=== PATIENT | female | born 1965 | race African-American/Black ===

== ENCOUNTER → 2017-05-16 | Outpatient (CLI) | payer OTHER ==
--- NOTE | 2017-05-16 16:57 | US ---
EXAMINATION TYPE: US venous doppler duplex LE RT DATE OF EXAM: 05/16/2017 4:45 PM COMPARISON: NONE CLINICAL HISTORY: M79.604:pain in right leg, R22.41 swelling in right leg. SIDE PERFORMED: Right TECHNIQUE: The lower extremity deep venous system is examined utilizing real time linear array sonog be with graded compression, doppler sonography and color-flow sonography. VESSELS IMAGED: External Iliac Vein (EIV) Common Femoral Vein Deep Femoral Vein Greater Saphenous Vein * Femoral Vein Popliteal Vein Small Saphenous Vein * Proximal Calf Veins (* superficial vessels) Patient of large body habitus. Right Leg: Negative for DVT IMPRESSION: Negative exam. No evidence of deep venous thrombosis.
== END ==
LOC: RAD 16:11
PROVIDERS: ATTEND Internal Medicine
DX: M79.604 Pain in right leg (principal); R22.41 Localized swelling, mass and lump, right lower limb

== ENCOUNTER → 2018-06-21 | Outpatient (CLI) | payer OTHER ==
--- NOTE | 2018-06-23 10:18 | MM ---
Reason for exam: screening (asymptomatic). Last mammogram was performed 7 years and 7 months ago. History: Patient is postmenopausal. Family history of breast cancer in grandmother at age 61. Physical Findings: A clinical breast exam by your physician is recommended on an annual basis and results should be correlated with mammographic findings. MG Screening Mammo w CAD Bilateral CC and MLO view(s) were taken. Prior study comparison: December 02, 2010, bilateral digital screening mammo w/CAD. October 22, 2005, bilateral mammogram, performed at [facility]. There is chronic nodularity in the right breast. There is no discrete abnormality. No significant changes when compared with prior studies. ASSESSMENT: Benign, BI-RAD 2 RECOMMENDATION: Routine screening mammogram of both breasts in 1 year.
== END | disposition home or self-care (01) ==
LOC: RADMAMWWP 13:34
PROVIDERS: ATTEND Family Medicine
DX: Z12.31 Encounter for screening mammogram for malignant neoplasm of breast (principal)
CPT/HCPCS: 77067

== ENCOUNTER 2018-08-18 07:22 | Day surgery (SDC) | payer OTHER ==
[2018-08-16 14:10] VITALS: BMI 51.8
[~2018-08-18 07:22] MED LIST: LACTATED RINGERS 1,000 ML IV SCH
[2018-08-18 07:43] VITALS: RESP 16; TEMP 98
[2018-08-18 07:47] LABS: Glucose,Whole Blood 108 mg/dL (75-99)
[2018-08-18] MEDS ORDERED: PROPOFOL 10 MG/ML 20 ML VIAL IV ONE (07:48)
--- NOTE | 2018-08-18 08:08 | P.GSHP ---
History of Present Illness H&P Date: 08/18/18 Chief Complaint: Screening colonoscopy This is a 51-year-old female who presents today for screening colonoscopy. Patient denies any significant GI complaints. Past Medical History Past Medical History: Asthma, Diabetes Mellitus History of Any Multi-Drug Resistant Organisms: None Reported Past Surgical History: No Surgical Hx Reported Past Anesthesia/Blood Transfusion Reactions: No Reported Reaction Additional Past Anesthesia/Blood Transfusion Reaction / Comment(s): no anesthesia Smoking Status: Never smoker - Past Family History Father Family Medical History: Cancer Additional Family Medical History / Comment(s): Colon CA Medications and Allergies Home Medications Medication Instructions Recorded Confirmed Type Albuterol Inhaler [Ventolin Hfa 1 - 2 puff INHALATION Q6HR PRN 09/30/14 History Inhaler] Insulin Aspart [NovoLOG See Protocol SQ AC-TID 12/27/14 08/18/18 History (formulary)] Insulin Glargine,Hum.rec.anlog 62 unit SQ HS 07/26/18 08/18/18 History [Carline Rey U-100] Mometasone/Formoterol [Dulera 200 2 puff INHALATION BID PRN 07/26/18 08/18/18 History Mcg/5 Mcg Inhaler] Multivitamins, Thera [Multivitamin 1 tab PO DAILY 07/26/18 08/18/18 History (formulary)] metFORMIN HCL [Glucophage] 500 mg PO BID 07/26/18 08/18/18 History Allergies Allergy/AdvReac Type Severity Reaction Status Date / Time egg Allergy Itching Verified 08/18/18 07:36 dust Allergy Itching Uncoded 08/18/18 07:36 mold Allergy Itching Uncoded 08/18/18 07:36 Surgical - Exam Vital Signs Temp Pulse Resp BP Pulse Ox 98.0 F 97 16 143/76 97 08/18/18 07:39 08/18/18 07:39 08/18/18 07:39 08/18/18 07:39 08/18/18 07:39 - General well developed, no distress - Eyes PERRL - ENT normal pinna - Neck no masses - Respiratory normal expansion - Cardiovascular Rhythm: regular - Abdomen Abdomen: soft, non tender Results - Labs Abnormal Lab Results - Last 24 Hours (Table) 08/18/18 Range/Units 07:43 POC Glucose (mg/dL) 108 H (75-99) mg/dL Assessment and Plan Assessment: We'll perform screening colonoscopy.
--- NOTE | 2018-08-18 08:25 | P.OP ---
Date of Procedure: 08/18/18 Preoperative Diagnosis: Screening colonoscopy Postoperative Diagnosis: Poor colonic prep Normal colon visualized to right colon Procedure(s) Performed: Colonoscopy Anesthesia: MAC Surgeon: Alo Cleary Pathology: none sent Condition: stable Disposition: PACU Description of Procedure: The patient's placed on the endoscopy table in the lateral position. She received IV sedation. Digital rectal exam was performed which revealed a large amount of liquid stool. Flexible colonoscope was then placed patient anus passed throughout the colon. The right colon was not visualized secondary to poor colonic prep. The large amount liquid stool which prevented the colonoscope visualize the colon. This point scope was withdrawn. The transverse colon, descending colon and sigmoid colon appeared normal. Scope was then brought back the rectum and this appeared normal. Scope was withdrawn for patient.
[2018-08-18 08:53] VITALS: BP 132/87; PULSE 85
== END 2018-08-18 09:17 | disposition home or self-care (01) ==
LOC: ORWHC2ENDO 07:22
PROVIDERS: ATTEND Surgery
DX: Z12.11 Encounter for screening for malignant neoplasm of colon (principal); E11.9 Type 2 diabetes mellitus without complications; J45.909 Unspecified asthma, uncomplicated; Z79.4 Long term (current) use of insulin; Z79.899 Other long term (current) drug therapy; Z91.012 Allergy to eggs; Z91.048 Other nonmedicinal substance allergy status
CPT/HCPCS: J2704; G0121

== ENCOUNTER 2018-12-18 11:16 | Inpatient (IN) | payer OTHER ==
[2018-12-18] MEDS ORDERED: IPRATROPIUM 0.5 MG/2.5 ML NEBU INHALATION STA (11:33)
[2018-12-18] MEDS ORDERED: ALBUTEROL NEBULIZED 2.5 MG/3 ML INHALATION STA (11:33)
[2018-12-18] MEDS ORDERED: methylPREDNISolone SOD SUCCI 125 MG/2 ML VIAL IV STA (11:33)
--- NOTE | 2018-12-18 12:07 | ED ---
General Adult HPI - General Chief complaint: Shortness of Breath Stated complaint: asthma Time Seen by Provider: 12/18/18 11:20 Source: patient, RN notes reviewed Mode of arrival: wheelchair Limitations: no limitations - History of Present Illness Initial comments: This is a 53-year-old female who presents emergency department with past medical history significant for asthma. Patient has been having difficulty breathing worsen over the last for 5 days but since yesterday got considerably worse. Patient denies any fever chills. Patient denies any significant cough. Patient denies any chest pain. Patient denies any head this dizziness or near syncopal episode. Patient denies any palpitations. Patient denies any abdominal pain. Patient denies any new swelling to the legs or calf tenderness. Patient states she's been taking breathing treatments all night and did get a steroid shot earlier in the week but is not currently on any steroids. Patient denies any smoking. - Related Data Home Medications Medication Instructions Recorded Confirmed INSULIN ASPART (NovoLOG) [NovoLOG See Protocol SQ AC-TID 12/27/14 12/18/18 (formulary)] Insulin Glargine,Hum.rec.anlog 62 unit SQ HS 07/26/18 12/18/18 [Basaglar Kwikpen U-100] Mometasone/Formoterol [Dulera 200 2 puff INHALATION RT-BID PRN 07/26/18 12/18/18 Mcg/5 Mcg Inhaler] Multivitamins, Thera [Multivitamin 1 tab PO DAILY 07/26/18 12/18/18 (formulary)] metFORMIN HCL [Glucophage] 500 mg PO BID 07/26/18 12/18/18 Albuterol Nebulized [Ventolin 2.5 mg INHALATION RT-Q4H PRN 12/18/18 12/18/18 Nebulized] Montelukast Sodium [Singulair] 10 mg PO HS 12/18/18 12/18/18 Allergies Allergy/AdvReac Type Severity Reaction Status Date / Time egg Allergy Itching Verified 12/18/18 11:28 dust Allergy Itching Uncoded 08/18/18 07:36 mold Allergy Itching Uncoded 08/18/18 07:36 Review of Systems ROS Statement: Those systems with pertinent positive or pertinent negative responses have been documented in the HPI. ROS Other: All systems not noted in ROS Statement are negative. Past Medical History Past Medical History: Asthma, Diabetes Mellitus History of Any Multi-Drug Resistant Organisms: None Reported Past Surgical History: No Surgical Hx Reported Past Anesthesia/Blood Transfusion Reactions: No Reported Reaction Additional Past Anesthesia/Blood Transfusion Reaction / Comment(s): no anesthesia Past Psychological History: No Psychological Hx Reported Smoking Status: Never smoker Past Alcohol Use History: None Reported Past Drug Use History: None Reported - Past Family History Father Family Medical History: Cancer Additional Family Medical History / Comment(s): Colon CA General Exam - General Exam Comments Initial Comments: GENERAL: Patient is well-developed and well-nourished. Patient is nontoxic and well- hydrated and is in moderate distress. ENT: Neck is soft and supple. No significant lymphadenopathy is noted. Oropharynx is clear. Moist mucous membranes. Neck has full range of motion without eliciting any pain. EYES: The sclera were anicteric and conjunctiva were pink and moist. Extraocular movements were intact and pupils were equal round and reactive to light. Eyelids were unremarkable. PULMONARY: Patient has diffuse expiratory wheezing CARDIOVASCULAR: There is a regular rate and rhythm without any murmurs gallops or rubs. ABDOMEN: Soft and nontender with normal bowel sounds. No palpable organomegaly was noted. There is no palpable pulsatile mass. SKIN: Skin is clear with no lesions or rashes and otherwise unremarkable. NEUROLOGIC: Patient is alert and oriented x3. Cranial nerves II through XII are grossly intact. Motor and sensory are also intact. Normal speech, volume and content. Symmetrical smile. MUSCULOSKELETAL: Normal extremities with adequate strength and full range of motion. LYMPHATICS: No significant lymphadenopathy is noted PSYCHIATRIC: Normal psychiatric evaluation. Limitations: no limitations Course Vital Signs 12/18/18 12/18/18 12/18/18 11:18 11:39 11:55 Temperature 98.1 F Pulse Rate 113 H 116 H Respiratory 24 32 H Rate Blood Pressure 158/117 O2 Sat by Pulse 100 Oximetry 12/18/18 12/18/18 12/18/18 11:58 12:24 13:26 Temperature 98.2 F Pulse Rate 116 H 108 H 103 H Respiratory 16 Rate Blood Pressure 135/83 O2 Sat by Pulse 96 Oximetry Medical Decision Making - Medical Decision Making EKG shows normal sinus rhythm at 90 bpm WA interval 146 dresses 80 QT interval 340 QTC is 434. Patient's EKG shows no ST segment elevation or depression. Chest x-ray shows no acute abnormality Patient received steroids in the emergency department and 3 breathing flaquito tments. Patient continued to have symmetric very wheezing but was feeling much better and moving more air. The patient's glucose was [address] the patient on a sliding scale. I spoke with sounds of this and he agreed to admit the patient admitted the patient wrote admitting orders I continue albuterol treatments steroids insulin sliding scale - Lab Data Result diagrams: 12/18/18 11:50 12/18/18 11:50 Lab Results 12/18/18 12/18/18 12/18/18 Range/Units 11:50 11:50 11:50 WBC 5.1 (3.8-10.6) k/uL RBC 4.78 (3.80-5.40) m/uL Hgb 12.0 (11.4-16.0) gm/dL Hct 38.3 (34.0-46.0) % MCV 80.0 (80.0-100.0) fL MCH 25.1 (25.0-35.0) pg MCHC 31.3 (31.0-37.0) g/dL RDW 13.2 (11.5-15.5) % Plt Count 305 (150-450) k/uL Neutrophils % 65 % Lymphocytes % 22 % Monocytes % 5 % Eosinophils % 6 % Basophils % 1 % Neutrophils # 3.3 (1.3-7.7) k/uL Lymphocytes # 1.1 (1.0-4.8) k/uL Monocytes # 0.2 (0-1.0) k/uL Eosinophils # 0.3 (0-0.7) k/uL Basophils # 0.0 (0-0.2) k/uL PT 9.4 (9.0-12.0) sec INR 0.9 (<1.2) APTT 23.5 (22.0-30.0) sec Sodium 137 (137-145) mmol/L Potassium 4.2 (3.5-5.1) mmol/L Chloride 102 (98-107) mmol/L Carbon Dioxide 26 (22-30) mmol/L Anion Gap 9 mmol/L BUN 10 (7-17) mg/dL Creatinine 0.47 L (0.52-1.04) mg/dL Est GFR (CKD-EPI)AfAm >90 (>60 ml/min/1.73 sqM) Est GFR (CKD-EPI)NonAf >90 (>60 ml/min/1.73 sqM) Glucose 383 H (74-99) mg/dL Calcium 9.1 (8.4-10.2) mg/dL Magnesium 1.6 (1.6-2.3) mg/dL Total Bilirubin 0.5 (0.2-1.3) mg/dL AST 8 L (14-36) U/L ALT 20 (9-52) U/L Alkaline Phosphatase 184 H (38-126) U/L Troponin I (0.000-0.034) ng/mL Total Protein 6.8 (6.3-8.2) g/dL Albumin 3.5 (3.5-5.0) g/dL 12/18/18 Range/Units 11:50 WBC (3.8-10.6) k/uL RBC (3.80-5.40) m/uL Hgb (11.4-16.0) gm/dL Hct (34.0-46.0) % MCV (80.0-100.0) fL MCH (25.0-35.0) pg MCHC (31.0-37.0) g/dL RDW (11.5-15.5) % Plt Count (150-450) k/uL Neutrophils % % Lymphocytes % % Monocytes % % Eosinophils % % Basophils % % Neutrophils # (1.3-7.7) k/uL Lymphocytes # (1.0-4.8) k/uL Monocytes # (0-1.0) k/uL Eosinophils # (0-0.7) k/uL Basophils # (0-0.2) k/uL PT (9.0-12.0) sec INR (<1.2) APTT (22.0-30.0) sec Sodium (137-145) mmol/L Potassium (3.5-5.1) mmol/L Chloride (98-107) mmol/L Carbon Dioxide (22-30) mmol/L Anion Gap mmol/L BUN (7-17) mg/dL Creatinine (0.52-1.04) mg/dL Est GFR (CKD-EPI)AfAm (>60 ml/min/1.73 sqM) Est GFR (CKD-EPI)NonAf (>60 ml/min/1.73 sqM) Glucose (74-99) mg/dL Calcium (8.4-10.2) mg/dL Magnesium (1.6-2.3) mg/dL Total Bilirubin (0.2-1.3) mg/dL AST (14-36) U/L ALT (9-52) U/L Alkaline Phosphatase (38-126) U/L Troponin I <0.012 (0.000-0.034) ng/mL Total Protein (6.3-8.2) g/dL Albumin (3.5-5.0) g/dL Critical Care Time Critical Care Time: Yes Total Critical Care Time: 35 Disposition Clinical Impression: Asthma with status asthmaticus Disposition: ADMITTED IP TO THIS HOSP Referrals: Cher Kimble MD [Primary Care Provider] - 1-2 days Time of Disposition: 14:08
[2018-12-18 12:38] LABS: Basophils % (A) 1 %; Eosinophils # (A) 0.3 k/uL (0-0.7); Eosinophils % (A) 6 %; HCT 38.3 % (34.0-46.0); Lymphocytes # (A) 1.1 k/uL (1.0-4.8); Lymphocytes % (A) 22 %; MCH 25.1 pg (25.0-35.0); MCHC 31.3 g/dL (31.0-37.0); Mean Platelet Volume 7.1; Monocytes # (A) 0.2 k/uL (0-1.0); Monocytes % (A) 5 %; Neutrophils # (A) 3.3 k/uL (1.3-7.7); Neutrophils % (A) 65 %; Platelet Count 305 k/uL (150-450); RBC 4.78 m/uL (3.80-5.40); RDW 13.2 % (11.5-15.5); WBC 5.1 k/uL (3.8-10.6)
[2018-12-18 12:45] LABS: ALT 20 U/L (9-52); AST 8 U/L (14-36); Albumin 3.5 g/dL (3.5-5.0); Alkaline Phosphatase 184 U/L (38-126); Anion Gap 9 mmol/L; Blood Urea Nitrogen 10 mg/dL (7-17); Calcium 9.1 mg/dL (8.4-10.2); Carbon Dioxide 26 mmol/L (22-30); Chloride 102 mmol/L (98-107); Glucose 383 mg/dL (74-99); Magnesium 1.6 mg/dL (1.6-2.3); Potassium 4.2 mmol/L (3.5-5.1); Sodium 137 mmol/L (137-145); Total Bilirubin 0.5 mg/dL (0.2-1.3); Total Protein 6.8 g/dL (6.3-8.2)
[2018-12-18 12:47] LABS: INR 0.9 (<1.2); Partial Thromboplastin Time 23.5 sec (22.0-30.0); Prothrombin Time 9.4 sec (9.0-12.0)
--- NOTE | 2018-12-18 12:47 | XR ---
EXAMINATION TYPE: XR chest 2V DATE OF EXAM: 12/18/2018 COMPARISON: 12/27/2014 TECHNIQUE: PA and lateral views submitted. HISTORY: difficulty breathing FINDINGS: The lungs are clear and there is no pneumothorax, pleural effusion, or focal pneumonia. Coarsened in terstitium. No pneumothorax. Atherosclerotic change of the aorta. IMPRESSION: 1. Coarsened interstitium could be on the basis of bronchitis or interstitial pneumonitis. Mild venou s congestion not excluded.
[2018-12-18] MEDS ORDERED: IPRATROPIUM-ALBUTEROL 3 ML NEB INHALATION PRN ×3 (14:08→16:02)
[2018-12-18] MEDS ORDERED: ACETAMINOPHEN TAB 325 MG TAB PO PRN (14:18)
--- NOTE | 2018-12-18 14:56 | P.HPIM ---
History of Present Illness H&P Date: 12/18/18 Chief Complaint: asthma exacerbation 53-year-old female with PMH of diabetes mellitus, asthma and presents the ED for shortness of breath and wheezing. Patient reports wheezing for the past week which is progressively getting worse, got worse last night despite using breathing treatments every 3-4 hours. Patient reports taking duller and Ventolin inhalers, endorses compliance and sees Dr. Arreguin in the outpatient setting. Patient is not aware of any triggers for her asthma. She denies any headaches, lower extremity edema, nausea, vomiting, fever, cough, chest pain, palpitations, changes in urination or bowel habits. No changes in appetite or weight. No dizziness, numbness/weakness/tingling of the extremities. in the ED, CBC was normal. Correlation panel was negative. CMP was within normal limits except for alkaline phosphatase of 184 and glucose of 383. Tr oponin was less than 0.012, EKG showing normal sinus rhythm. Chest x-ray was negative for acute process. Patient is admitted for asthma exacerbation. Review of Systems All systems: negative Past Medical History Past Medical History: Asthma, Diabetes Mellitus History of Any Multi-Drug Resistant Organisms: None Reported Past Surgical History: No Surgical Hx Reported Past Anesthesia/Blood Transfusion Reactions: No Reported Reaction Additional Past Anesthesia/Blood Transfusion Reaction / Comment(s): no anesthesia Past Psychological History: No Psychological Hx Reported Smoking Status: Never smoker Past Alcohol Use History: None Reported Past Drug Use History: None Reported - Past Family History Father Family Medical History: Cancer Additional Family Medical History / Comment(s): Colon CA Medications and Allergies Home Medications Medication Instructions Recorded Confirmed Type INSULIN ASPART (NovoLOG) [NovoLOG See Protocol SQ AC-TID 12/27/14 12/18/18 History (formulary)] Insulin Glargine,Hum.rec.anlog 62 unit SQ HS 07/26/18 12/18/18 History [Basaglar Candido U-100] Mometasone/Formoterol [Dulera 200 2 puff INHALATION RT-BID PRN 07/26/18 12/18/18 History Mcg/5 Mcg Inhaler] Multivitamins, Thera [Multivitamin 1 tab PO DAILY 07/26/18 12/18/18 History (formulary)] metFORMIN HCL [Glucophage] 500 mg PO BID 07/26/18 12/18/18 History Albuterol Nebulized [Ventolin 2.5 mg INHALATION RT-Q4H PRN 12/18/18 12/18/18 History Nebulized] Montelukast Sodium [Singulair] 10 mg PO HS 12/18/18 12/18/18 History Allergies Allergy/AdvReac Type Severity Reaction Status Date / Time egg Allergy Itching Verified 12/18/18 11:28 dust Allergy Itching Uncoded 08/18/18 07:36 mold Allergy Itching Uncoded 08/18/18 07:36 Physical Exam Vitals: Vital Signs Temp Pulse Resp BP Pulse Ox 12/18/18 13:26 98.2 F 103 H 16 135/83 96 12/18/18 12:24 108 H 12/18/18 11:58 116 H 12/18/18 11:55 32 H 12/18/18 11:39 116 H 12/18/18 11:18 98.1 F 113 H 24 158/117 100 Intake and Output 12/17/18 12/18/18 12/18/18 22:59 06:59 14:59 Other: Weight 145.15 kg General: [non toxic], [no distress], [appears at stated age], [morbidly obese] Derm: [warm], [dry] Head: [atraumatic], [normocephalic], [symmetric] Eyes: [EOMI], [no lid lag], [anicteric sclera] Mouth: [no lip lesion], [mucus membranes moist] Cardiovascular: [S1S2 reg], [no murmur], [positive posterior tibial pulse bi lateral], Lungs: [decreased breath sounds bilaterally with end expiratory wheezing], [no rhonchi, no rales] , [no accessory muscle use] Abdominal: [soft], [ nontender to palpation], [no guarding], [no appreciable organomegaly] Ext: [no gross muscle atrophy], [no edema], [no contractures] Neuro: [no focal neuro deficits] Psych: [Alert], [oriented], [appropriate affect] Results CBC & Chem 7: 12/18/18 11:50 12/18/18 11:50 Labs: Abnormal Lab Results - Last 24 Hours (Table) 12/18/18 Range/Units 11:50 Creatinine 0.47 L (0.52-1.04) mg/dL Glucose 383 H (74-99) mg/dL AST 8 L (14-36) U/L Alkaline Phosphatase 184 H (38-126) U/L Thrombosis Risk Factor Assmnt - Choose All That Apply Any of the Below Risk Factors Present?: Yes Each Factor Represents 1 point: Abnormal pulmonary function (COPD), Age 41-60 years, Obesity (BMI >25) Other Risk Factors: No Thrombosis Risk Factor Assessment Total Risk Factor Score: 3 Thrombosis Risk Factor Assessment Level: Moderate Risk Assessment and Plan Assessment: Assessment and Plan 1. Asthma exacerbation 2. Diabetes mellitus, type II, insulin-dependent with hyperglycemia 3. Elevated alkaline phosphatase 1. Unknown trigger. Patient is afebrile with no leukocytosis. Chest x-ray is negative for acute process. Continue DuoNeb every 4 hours scheduled and as needed for shortness of breath and wheezing. Continue Solu-Medrol 60 mg IV every 6 hours.continue Singulair. Continue Symbicort. O2 per nasal cannula to maintain an O2 sat saturation greater than 92%. Follow pulmonology consultation. 2. Gdias-yo-ryza glucose 383.continue Levemir 62 units at bedtime. Insulin sliding scale. Regular Accu-Cheks. Hypoglycemic precautions. 3. Alkaline phosphatase 184. Likely secondary to vitamin D deficiency. Will need adequate follow-up in the outpatient setting. Patient admitted for asthma exacerbation. Pulmonology is on consult. Likely DC in 1-2 days.
[2018-12-18] MEDS: IPRATROPIUM-ALBUTEROL 3 ML NEB INHALATION SCH ×2 (16:32→21:25)
[2018-12-18] MEDS ORDERED: INSULIN ASPART (NovoLOG) 100 UNIT/ML VIAL SQ SCH ×2 (17:30)
[2018-12-18 17:57] LABS: Glucose,Whole Blood 471 mg/dL (75-99)
[2018-12-18] MEDS: methylPREDNISolone SOD SUCCI 125 MG/2 ML VIAL IV SCH (18:05)
[2018-12-18] MEDS ORDERED: SYMBICORT 160-4.5 MCG INHALER INHALATION SCH (20:00)
[2018-12-18 20:13] LABS: Glucose,Whole Blood 458 mg/dL (75-99)
[2018-12-18] MEDS ORDERED: INSULIN ASPART (NovoLOG) 100 UNIT/ML VIAL SQ ONE (20:30)
[2018-12-18] MEDS: HEPARIN SODIUM,PORCINE 5,000 UNIT/ML 1 ML VIAL SQ SCH (20:39)
[2018-12-18] MEDS: FAMOTIDINE 20 MG/2 ML VIAL IV SCH (20:40)
[2018-12-18] MEDS: MONTELUKAST 10 MG TAB PO SCH (20:41)
[2018-12-18] MEDS: INSULIN DETEMIR (LEVEMIR) 100 UNIT/ML SYR SQ SCH (20:46)
[2018-12-18] MEDS: INSULIN ASPART (NovoLOG) 100 UNIT/ML VIAL SQ SCH (20:53)
[2018-12-18] MEDS: BUDESONIDE 0.5 MG/2 ML NEBU INHALATION SCH (21:24)
--- NOTE | 2018-12-18 22:09 | CONS ---
CONSULTATION Jameson Condon is a 53-year-old female with a history of severe allergic asthma who presented to the ED at [facility] with increasing shortness of breath. She had been short of breath for approximately 5-6 weeks and has daily wheezing, but she became so short of breath that she was unable to complete a sentence. She subsequently was not having much movement of air and her wheezing ironically started to decrease, most likely because of decrease in airflow. She was severely short of breath, was seen in the ED and subsequently admitted for further evaluation and management. PAST MEDICAL HISTORY: Positive for: 1. Severe persistent asthma. 2. History of diabetes mellitus, type 2. 3. History of obesity. 4. She has had previous admissions for asthma as well. FAMILY HISTORY: Positive for cancer in her father in the form of colon cancer. MEDICATIONS: Medications prior to admission were: 1. Insulin. 2. Dulera. 3. Multivitamins. 4. Albuterol. 5. Montelukast. 6. Nebulized albuterol. ALLERGIES: 1. EGG. 2. DUST. 3. MOLD. She previously had an eosinophil count of 900 in 2015. REVIEW OF SYSTEMS: Noncontributory. PHYSICAL EXAMINATION: Respiratory rate is 22, pulse rate of 97, temperature 97.9, blood pressure 143/85. HEENT reveals pupils that are equal. Redundant tissue in the posterior pharynx. Chest with decreased breath sounds with prolonged expiration. Bilateral expiratory wheeze. Cardiovascular system is in S1, S2. No S3. No S4. Abdomen is soft. There is trace pedal edema. White count is 5.1, hemoglobin of 12. Sodium 137, potassium 4.2, chloride 102, bicarb 26, BUN 10, creatinine 0.47. Glucose is 383. Eosinophil count is 0.3. IMPRESSION AT THIS TIME: 1. Severe persistent asthma with acute exacerbation. 2. 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 3. Diabetes mellitus. At this point in time, would keep her on IV and aerosolized steroids. Keep her on bronchodilators. GI and DVT prophylaxis. Prognosis is guarded. Her chest x-ray does not show any discrete infiltrates. She was counseled regarding her condition and this approach and may be a candidate for outpatient anti-eosinophil or anti IgE treatment, depending on what her lab work shows. She was counseled regarding her condition and this approach. MMODL / IJN: [id number] /
[2018-12-19] MEDS: IPRATROPIUM-ALBUTEROL 3 ML NEB INHALATION SCH ×6 (00:38→20:57)
[2018-12-19] MEDS: methylPREDNISolone SOD SUCCI 125 MG/2 ML VIAL IV SCH ×3 (00:43→13:08)
[2018-12-19 01:02] LABS: Glucose,Whole Blood 304 mg/dL (75-99)
[2018-12-19] MEDS ORDERED: INSULIN ASPART (NovoLOG) 100 UNIT/ML VIAL SQ ONE ×2 (01:07→17:44)
[2018-12-19 07:39] LABS: Glucose,Whole Blood 346 mg/dL (75-99)
[2018-12-19] MEDS: INSULIN ASPART (NovoLOG) 100 UNIT/ML VIAL SQ SCH ×7 (07:49→21:26)
[2018-12-19] MEDS: FAMOTIDINE 20 MG/2 ML VIAL IV SCH ×2 (07:57→21:20)
[2018-12-19] MEDS: HEPARIN SODIUM,PORCINE 5,000 UNIT/ML 1 ML VIAL SQ SCH ×2 (07:57→21:18)
[2018-12-19] MEDS: BUDESONIDE 0.5 MG/2 ML NEBU INHALATION SCH ×2 (08:56→20:57)
[2018-12-19 12:01] LABS: Hemoglobin A1C 11.5 % (4.0-6.0)
[2018-12-19 12:08] LABS: Glucose,Whole Blood 374 mg/dL (75-99)
--- NOTE | 2018-12-19 14:03 | P.PN ---
Subjective Progress Note Date: 12/19/18 Principal diagnosis: Asthma exacerbation Patient seen and examined. No acute events overnight. Patient reports great improvement in her breathing since admission. Patient reports being able to ambulate to the bathroom and back to her bed with slight difficulty. She denies any cough, chest pain or palpitations. No nausea or vomiting. No fever or chills. Objective - Vital Signs Vital signs: Vital Signs Temp 97.5 F L 12/19/18 11:59 Pulse 72 12/19/18 12:37 Resp 16 12/19/18 11:59 BP 147/68 12/19/18 11:59 Pulse Ox 96 12/19/18 11:59 Intake & Output 12/18/18 12/19/18 12/19/18 18:59 06:59 18:59 Intake Total 1300 Balance 1300 Weight 145.15 kg Intake: Oral 1300 Other: Voiding Method Toilet # Voids 1 - Exam General: [non toxic], [no distress], [appears at stated age], [morbidly obese] Derm: [warm], [dry] Head: [atraumatic], [normocephalic], [symmetric] Eyes: [EOMI], [no lid lag], [anicteric sclera] Mouth: [no lip lesion], [mucus membranes moist] Cardiovascular: [S1S2 reg], [no murmur], [positive posterior tibial pulse bilateral], Lungs: [decreased breath sounds bilaterally, improved], [no rhonchi, no rales] , [no accessory muscle use] Abdominal: [soft], [ nontender to palpation], [no guarding], [no appreciable organomegaly] Ext: [no gross muscle atrophy], [no edema], [no contractures] Neuro: [no focal neuro deficits] Psych: [Alert], [oriented], [appropriate affect] - Labs CBC & Chem 7: 12/18/18 11:50 12/18/18 11:50 Labs: Abnormal Lab Results - Last 24 Hours (Table) 12/18/18 12/18/18 12/18/18 Range/Units 11:50 17:54 20:10 POC Glucose (mg/dL) 471 H 458 H (75-99) mg/dL Hemoglobin A1c 11.5 H (4.0-6.0) % 12/19/18 12/19/18 12/19/18 Range/Units 01:00 07:38 12:05 POC Glucose (mg/dL) 304 H 346 H 374 H (75-99) mg/dL Hemoglobin A1c (4.0-6.0) % Assessment and Plan Assessment: Assessment and Plan 1. Asthma exacerbation 2. Diabetes mellitus, type II, insulin-dependent with hyperglycemia 3. Elevated alkaline phosphatase 1. Unknown trigger. Patient is afebrile with no leukocytosis. Chest x-ray is negative for acute process. Continue DuoNeb every 2 hours scheduled and as needed for shortness of breath and wheezing. Continue Solu-Medrol 60 mg IV every 6 hours. Continue Singulair. Continue Symbicort. O2 per nasal cannula to maintain an O2 sat saturation greater than 92%. Follow pulmonology consultation. 2. Uioqd-gy-ywpt glucose 374. Continue Levemir 62 units at bedtime. Insulin sliding scale. Regular Accu-Cheks. Hypoglycemic precautions. 3. Alkaline phosphatase 184. Likely secondary to vitamin D deficiency. Will need adequate follow-up in the outpatient setting. Patient admitted for asthma exacerbation. Shows improvement, pending clinical improvement. Likely DC tomorrow.
--- NOTE | 2018-12-19 16:49 | PN ---
PROGRESS NOTE DATE OF SERVICE: 12/19/2018 This patient is less short of breath and is doing significantly better overall. On physical examination, she has a respiratory rate of 16, pulse rate of 70, temperature 97.5, blood pressure 147/68. Oxygen saturation on room air is 96%. HEENT is unremarkable. Chest reveals prolonged expiration. No wheezing today. Cardiovascular system is in S1, S2. Abdomen is soft. There is no edema. IMPRESSION AT THIS TIME: 1. Severe asthma with acute exacerbation. 2. Eosinophilic asthma. 3. Obesity. 4. Diabetes mellitus. Switch her to oral steroids. Increase her activity level. She will be a candidate for anti-eosinophilic therapy in the form of a biologic as an outpatient. She was counseled regarding her condition. Continue on her current medications. MMODL / IJN: [id number] /
[2018-12-19 17:30] LABS: Glucose,Whole Blood 383 mg/dL (75-99)
[2018-12-19] MEDS: predniSONE 20 MG TAB PO SCH (18:35)
[2018-12-19 21:04] LABS: Glucose,Whole Blood 346 mg/dL (75-99)
[2018-12-19] MEDS: MONTELUKAST 10 MG TAB PO SCH (21:17)
[2018-12-19] MEDS: INSULIN DETEMIR (LEVEMIR) 100 UNIT/ML SYR SQ SCH (21:27)
[2018-12-20] MEDS: IPRATROPIUM-ALBUTEROL 3 ML NEB INHALATION SCH ×4 (00:30→12:59)
[2018-12-20 07:39] LABS: Glucose,Whole Blood 353 mg/dL (75-99)
[2018-12-20] MEDS: predniSONE 20 MG TAB PO SCH (07:50)
[2018-12-20] MEDS: FAMOTIDINE 20 MG/2 ML VIAL IV SCH (07:51)
[2018-12-20] MEDS: HEPARIN SODIUM,PORCINE 5,000 UNIT/ML 1 ML VIAL SQ SCH (07:51)
[2018-12-20] MEDS: INSULIN ASPART (NovoLOG) 100 UNIT/ML VIAL SQ SCH ×4 (07:53→13:55)
[2018-12-20] MEDS: BUDESONIDE 0.5 MG/2 ML NEBU INHALATION SCH (09:06)
[2018-12-20] MEDS ORDERED: INSULIN ASPART (NovoLOG) 100 UNIT/ML VIAL SQ ONE (10:49)
--- NOTE | 2018-12-20 11:11 | P.DS ---
Providers Date of admission: 12/18/18 14:08 Expected date of discharge: 12/20/18 Attending physician: Jaye Alvarez MD Consults: 12/18/18 15:46 Consult Physician Stat Consulting Provider: Raymond Delvalle Consult Reason/Comments: ASTHMA Do you want consulting provider notified?: Yes Primary care physician: Cher Kimble MD Hospital Course: 53-year-old female with PMH of diabetes mellitus, asthma and presents the ED for shortness of breath and wheezing. Patient reports wheezing for the past week which is progressively getting worse, got worse last night despite using breathing treatments every 3-4 hours. Patient reports taking duller and Ventolin inhalers, endorses compliance and sees Dr. Arreguin in the outpatient setting. Patient is not aware of any triggers for her asthma. She denies any headaches, lower extremity edema, nausea, vomiting, fever, cough, chest pain, palpitations, changes in urination or bowel habits. No changes in appetite or weight. No dizziness, numbness/weakness/tingling of the extremities. In the ED, CBC was normal. Correlation panel was negative. CMP was within normal limits except for alkaline phosphatase of 184 and glucose of 383. Troponin was less than 0.012, EKG showing normal sinus rhythm. Chest x-ray was negative for acute process. Patient is admitted for asthma exacerbation. With regard to her asthma exacerbation, patient was afebrile with no leukocytosis. Patient was started on DuoNeb treatments every 4 hours scheduled and every 2 hours as needed for shortness of breath or wheezing. Patient was started on Solu-Medrol 60 mg IV every 6 hours and eventually transitioned to prednisone for discharge. She was continued on Singulair and Symbicort. She was given oxygen per nasal cannula to maintain an O2 saturation greater than 92%. Patient was noted to be hyperglycemic throughout her hospitalization. Her jrucy-wr-txqm glucose on admission was 374. Her home dose of Levemir was resumed. She was started on an insulin sliding scale. Her blood glucose continued to be in the 300s during her hospitalization. 10 units of short- acting insulin 3 times a day was added to her insulin regimen. Patient was also noted to have an elevated alkaline phosphatase. This is thought to be secondary to her vitamin D deficiency. Patient seen and examined prior to discharge. No acute events overnight. Patient reports great improvement in her breathing since admission. Patient reports that she is back to baseline. She denies any chest pain, shortness of breath or palpitations. Reports that she's been able to ambulate the hallways and washroom without difficulty. General: [non toxic], [no distress], [appears at stated age], [morbidly obese] Derm: [warm], [dry] Head: [atraumatic], [normocephalic], [symmetric] Eyes: [EOMI], [no lid lag], [anicteric sclera] Mouth: [no lip lesion], [mucus membranes moist] Cardiovascular: [S1S2 reg], [no murmur], [positive posterior tibial pulse bilateral], Lungs: [decreased breath sounds bilaterally], [no rhonchi, no rales] , [no accessory muscle use] Abdominal: [soft], [ nontender to palpation], [no guarding], [no appreciable organomegaly] Ext: [no gross muscle atrophy], [no edema], [no contractures] Neuro: [no focal neuro deficits] Psych: [Alert], [oriented], [appropriate affect] Assessment and Plan 1. Asthma exacerbation 2. Diabetes mellitus, type II, insulin-dependent with hyperglycemia 3. Elevated alkaline phosphatase 1. Unknown trigger. Patient is afebrile with no leukocytosis. Chest x-ray is negative for acute process. Continue DuoNeb every 2 hours scheduled and as needed for shortness of breath and wheezing. Solu-Medrol transitioned to prednisone. Continue Singulair. Continue Symbicort. O2 per nasal cannula to maintain an O2 sat saturation greater than 92%. Follow pulmonology consultation. 2. Yvicl-et-uudr glucose 353. Continue Levemir 62 units at bedtime. Added lispro 10 units 3 times a day with meals. Give 20 units short acting insulin now. Insulin sliding scale. Regular Accu-Cheks. Hypoglycemic precautions. 3. Alkaline phosphatase 184. Likely secondary to vitamin D deficiency. Will need adequate follow-up in the outpatient setting. Patient admitted for asthma exacerbation. Patient reports returning to baseline. Prescription signed for new nebulizer machine. Patient to be discharged today with close follow-up with PCP and pulmonology. This complex discharge took greater than 30 minutes. Pertinent Studies: Chest x-ray Patient Condition at Discharge: Stable Plan - Discharge Summary Discharge Rx Participant: Yes New Discharge Prescriptions: New predniSONE 60 mg PO DAILY #3 tab Albuterol Inhaler [Ventolin Hfa Inhaler] 1 - 2 puff INHALATION RT-Q6H PRN #1 inhaler PRN Reason: Shortness Of Breath Continue INSULIN ASPART (NovoLOG) [NovoLOG (formulary)] See Protocol SQ AC-TID metFORMIN HCL [Glucophage] 500 mg PO BID Insulin Glargine,Hum.rec.anlog [Basaglar Kwikpen U-100] 62 unit SQ HS Multivitamins, Thera [Multivitamin (formulary)] 1 tab PO DAILY Montelukast Sodium [Singulair] 10 mg PO HS Mometasone/Formoterol [Dulera 200 Mcg/5 Mcg Inhaler] 2 puff INHALATION RT-BID PRN #1 hfa.aer.ad PRN Reason: Bronchodilation Changed Albuterol Nebulized [Ventolin Nebulized] 2.5 mg INHALATION Q4HR PRN #90 ampul PRN Reason: Shortness Of Breath Discharge Medication List INSULIN ASPART (NovoLOG) [NovoLOG (formulary)] See Protocol SQ AC-TID 12/27/14 [History] Insulin Glargine,Hum.rec.anlog [Basaglar Kwikpen U-100] 62 unit SQ HS 07/26/18 [History] Multivitamins, Thera [Multivitamin (formulary)] 1 tab PO DAILY 07/26/18 [History] metFORMIN HCL [Glucophage] 500 mg PO BID 07/26/18 [History] Montelukast Sodium [Singulair] 10 mg PO HS 12/18/18 [History] Albuterol Inhaler [Ventolin Hfa Inhaler] 1 - 2 puff INHALATION RT-Q6H PRN #1 inhaler 12/20/18 [Rx] Albuterol Nebulized [Ventolin Nebulized] 2.5 mg INHALATION Q4HR PRN #90 ampul 12/20/18 [Rx] Mometasone/Formoterol [Dulera 200 Mcg/5 Mcg Inhaler] 2 puff INHALATION RT-BID PRN #1 hfa.aer.ad 12/20/18 [Rx] predniSONE 60 mg PO DAILY #3 tab 12/20/18 [Rx] Follow up Appointment(s)/Referral(s): [facility] [NON-STAFF] - As Needed Cher Kimble MD [Primary Care Provider] - 1-2 days Raymond Delvalle MD [STAFF PHYSICIAN] - 1 Week Patient Instructions/Handouts: Methylprednisolone (By injection), Asthma (GEN) Activity/Diet/Wound Care/Special Instructions: Diet: Diabetic diet Follow-up with PCP within 1-2 days of discharge. Follow-up with pulmonology within 1 week of discharge. Take all medications as advised. Discharge Disposition: HOME SELF-CARE
[2018-12-20 12:54] LABS: Glucose,Whole Blood 276 mg/dL (75-99)
[2018-12-20 12:56] VITALS: BP 147/78; RESP 16; TEMP 98
--- NOTE | 2018-12-20 12:59 | P.PN ---
Subjective Progress Note Date: 12/20/18 12/20/2018: Patient seen and examined. Patient is sitting up at the bedside on room air. She states she feels excellent today. She states her breathing is markedly improved. She denies any fevers or chills. She has been ambulating around her room and denies shortness of breath and wheezing. She states she is ready to go home today. Objective - Vital Signs Vital signs: Vital Signs Temp 98 F 12/20/18 12:23 Pulse 80 12/20/18 12:23 Resp 16 12/20/18 12:23 BP 147/78 12/20/18 12:23 Pulse Ox 94 L 12/20/18 12:23 Intake & Output 12/19/18 12/20/18 12/20/18 18:59 06:59 18:59 Intake Total 600 Balance 600 Intake: Oral 600 Other: Voiding Method Toilet # Voids 3 2 - Exam Gen.: Patient is alert and oriented 3, no acute distress, obese Cardiovascular: Regular rate and rhythm, S1/S2 Lungs: Diminished breath sounds bilaterally otherwise clear Abdomen: Soft nontender nondistended positive bowel sounds Extremities: No edema - Labs CBC & Chem 7: 12/18/18 11:50 12/18/18 11:50 Labs: Abnormal Lab Results - Last 24 Hours (Table) 12/19/18 12/19/18 12/19/18 Range/Units 09:42 17:28 21:01 POC Glucose (mg/dL) 383 H 346 H (75-99) mg/dL IgE 780.00 H (0.00-114.00) IU/mL 12/20/18 12/20/18 Range/Units 07:36 12:45 POC Glucose (mg/dL) 353 H 276 H (75-99) mg/dL IgE (0.00-114.00) IU/mL Assessment and Plan Assessment: Acute exacerbation of severe persistent asthma Eosinophilic asthma Elevated IgE Obesity Diabetes mellitus type 2 O2 to maintain saturation greater than or equal to 90%, patient currently on room air Pending alpha-1 antitrypsin phenotype and genotype Pending HP and ALLERGY panel Steroid taper Pulmicort and duo nebs Singulair Allergen avoidance Okay to DC from pulmonary standpoint, follow up in 2-3 days
[2018-12-20 13:02] VITALS: PULSE 78
[2018-12-20 14:23] VITALS: BMI 50.1
[2018-12-20 15:04] LABS: Alt. alternata IgE Class CLASS 0; Alternaria alternata IgE <0.35 kU/L (<0.35); Asperg. fumagatus IgE <0.35 kU/L (<0.35); Asperg. fumagatus IgE Class CLASS 0; Bermuda Grass IgE <0.35 kU/L (<0.35); Birch(Com.Silvr) IgE <0.35 kU/L (<0.35); Birch(Com.Silvr) IgE Class CLASS 0; Cat Epith & Dander IgE <0.35 kU/L (<0.35); Cat Epith & Dander IgE Class CLASS 0; Clad herbarum IgE <0.35 kU/L (<0.35); Cockroach IgE <0.35 kU/L (<0.35); Cottonwood IgE <0.35 kU/L (<0.35); Dermato. Pteronyssinus IgE <0.35 kU/L (<0.35); Dermato. farinae IgE <0.35 kU/L (<0.35); Dermato. farinae IgE Class CLASS 0; Dog Dander IgE <0.35 kU/L (<0.35); Elm IgE <0.35 kU/L (<0.35); Maple (Box Elder) IgE <0.35 kU/L (<0.35); Maple (Box Elder) IgE Class CLASS 0; Mountain Cedar IgE <0.35 kU/L (<0.35); Mountain Cedar IgE Class CLASS 0; Mouse Urine IgE Class CLASS 0; Nettle IgE <0.35 kU/L (<0.35); Nettle IgE Class CLASS 0; Oak IgE <0.35 kU/L (<0.35); Penicillium notatum IgE Class CLASS 0; Rough Marshelder IgE <0.35 kU/L (<0.35); Rough Marshelder IgE Class CLASS 0; Timothy Grass IgE <0.35 kU/L (<0.35); White Ash IgE Class CLASS 0
[2018-12-21 11:50] LABS: Alpha 1 Anti-Trypsin 116 mg/dL (90 - 200); Alpha-1-Antitrypsin Phenotype MS
== END 2018-12-20 16:00 | disposition home or self-care (01) | DRG 202 ==
LOC: EC 11:16 → 3NMEDONC 14:08 → 6PED 14:41
PROVIDERS: ADMIT Family Medicine; ATTEND Family Medicine
DX: J45.51 Severe persistent asthma with (acute) exacerbation (principal); Z68.43 Body mass index [BMI] 50.0-59.9, adult; E11.65 Type 2 diabetes mellitus with hyperglycemia; E55.9 Vitamin D deficiency, unspecified; E66.9 Obesity, unspecified; Z79.4 Long term (current) use of insulin; Z79.51 Long term (current) use of inhaled steroids; Z79.899 Other long term (current) drug therapy; Z80.0 Family history of malignant neoplasm of digestive organs; Z91.012 Allergy to eggs; R74.8 Abnormal levels of other serum enzymes; J45.52 Severe persistent asthma with status asthmaticus
CPT/HCPCS: 36415; 71046; 80053; 82103; 82104; 82785; 83036; 83735; 84484; 85025; 85610; 85730; 86001; 86003; 86606; 86609; 93005; 94640; 94644; 99291

== ENCOUNTER → 2019-02-28 | Outpatient (CLI) | payer OTHER ==
--- NOTE | 2019-02-28 19:55 | ECHOF ---
Referral Reason:I10 hypertension R60.9 Edema, unspecified MEASUREMENTS -------- HEIGHT: 170.2 cm WEIGHT: 152.0 kg BP: RVIDd: 2.9 cm (< 3.3) IVSd: 1.3 cm (0.6 - 1.1) LVIDd: 4.2 cm (3.9 - 5.3) LVPWd: 1.1 cm (0.6 - 1.1) IVSs: 1.4 cm LVIDs: 2.8 cm LVPWs: 1.7 cm LAESV Index (A-L): 16.26 ml/m Ao Diam: 3.9 cm (2.0 - 3.7) AV Cusp: 2.4 cm (1.5 - 2.6) LA Diam: 3.8 cm (2.7 - 3.8) MV E Christophe: 0.64 m/s MV DecT: 250 ms MV A Christophe: 1.04 m/s MV E/A Ratio: 0.62 RAP: 5.00 mmHg RVSP: 27.01 mmHg FINDINGS -------- Sinus rhythm. This was a technically difficult study with suboptimal views. The left ventricular size is normal. There is mild concentric left ventricular hypertrophy. Overa ll left ventricular systolic function is normal with, an EF between 60 - 65 %. The right ventricle is normal in size. Normal LA size by volume 22+/-6 ml/m2. The right atrium was not well visualized. xx ml of Lumason was utilized for enhancement of images. Interatrial and interventricular septum intact. The aortic valve was not well visualized. There is no evidence of aortic regurgitation. There is no evidence of aortic stenosis. The mitral valve is normal. Mild tricuspid regurgitation present. There is no evidence of pulmonary hypertension. The right v entricular systolic pressure, as measured by Doppler, is 27.01mmHg. There is no pulmonic regurgitation present. The aortic root size is normal. Normal inferior vena cava with normal inspiratory collapse consistent with estimated right atrial pre ssure of 5 mmHg. Echo free space indicative of a pericardial fat pad. CONCLUSIONS -------- 1. Sinus rhythm. 2. This was a technically difficult study with suboptimal views. 3. The left ventricular size is normal. 4. There is mild concentric left ventricular hypertrophy. 5. Overall left ventricular systolic function is normal with, an EF between 60 - 65 %. 6. The right ventricle is normal in size. 7. Normal LA size by volume 22+/-6 ml/m2. 8. The right atrium was not well visualized. 9. xx ml of Lumason was utilized for enhancement of images. 10. Interatrial and interventricular septum intact. 11. The aortic valve was not well visualized. 12. There is no evidence of aortic regurgitation. 13. There is no evidence of aortic stenosis. 14. The mitral valve is normal. 15. Mild tricuspid regurgitation present. 16. There is no evidence of pulmonary hypertension. 17. The right ventricular systolic pressure, as measured by Doppler, is 27.01mmHg. 18. There is no pulmonic regurgitation present. 19. The aortic root size is normal. 20. Normal inferior vena cava with normal inspiratory collapse consistent with estimated right atrial pressure of 5 mmHg. 21. Echo free space indicative of a pericardial fat pad. CHANGE RELEASE MANAGER: Madelyn Crews RDCS
== END | disposition home or self-care (01) ==
LOC: MERGE 13:15 → RADECHMAIN 13:33
PROVIDERS: ATTEND Family Medicine
DX: I11.9 Hypertensive heart disease without heart failure (principal); I07.1 Rheumatic tricuspid insufficiency
CPT/HCPCS: C8929; Q9950; 93306

== ENCOUNTER 2019-03-31 11:25 | Emergency (ER) | payer OTHER ==
[2019-03-31] MEDS ORDERED: IPRATROPIUM-ALBUTEROL 3 ML NEB INHALATION STA ×2 (11:41→12:51)
[2019-03-31] MEDS ORDERED: SODIUM CHLORIDE 0.9% 1,000 ML IV STA (11:41)
[2019-03-31 12:27] LABS: Basophils % (A) 1 %; Eosinophils # (A) 0.4 k/uL (0-0.7); Eosinophils % (A) 8 %; HGB 12.1 gm/dL (11.4-16.0); Lymphocytes # (A) 1.4 k/uL (1.0-4.8); Lymphocytes % (A) 32 %; MCH 24.7 pg (25.0-35.0); MCHC 31.9 g/dL (31.0-37.0); MCV 77.5 fL (80.0-100.0); Mean Platelet Volume 7.9; Monocytes # (A) 0.2 k/uL (0-1.0); Monocytes % (A) 4 %; Neutrophils # (A) 2.2 k/uL (1.3-7.7); Neutrophils % (A) 53 %; Platelet Count 307 k/uL (150-450); RDW 13.5 % (11.5-15.5); WBC 4.2 k/uL (3.8-10.6)
--- NOTE | 2019-03-31 12:28 | ED ---
SOB HPI - General Chief Complaint: Shortness of Breath Stated Complaint: ZINA Time Seen by Provider: 03/31/19 11:34 Source: patient, family, RN notes reviewed, old records reviewed Mode of arrival: ambulatory Limitations: no limitations - History of Present Illness Initial Comments: This is a 53-year-old female who is presenting with complaints of shortness of breath 2 days getting progressively worse. She has a history of asthma and diabetes and obesity. She states the breathing is got worse in spite of home medication. She states she has some chest tightness but no overt pain no fevers chills nausea vomiting sweats or other symptoms. She has have a cough is minimally productive. No other modifying factors at this time MD Complaint: shortness of breath - Related Data Home Medications Medication Instructions Recorded Confirmed Insulin Glargine,Hum.rec.anlog 62 unit SQ HS 07/26/18 03/31/19 [Basaglar Kwikpen U-100] Mometasone/Formoterol [Dulera 100 2 puff INHALATION RT-BID 07/26/18 03/31/19 Mcg/5 Mcg Inhaler] Multivitamins, Thera [Multivitamin 1 tab PO DAILY 07/26/18 03/31/19 (formulary)] Montelukast Sodium [Singulair] 10 mg PO HS 12/18/18 03/31/19 Albuterol Nebulized [Ventolin 2.5 mg INHALATION RT-Q4H PRN 03/31/19 03/31/19 Nebulized] Insulin Lispro [Admelog] 24 unit SQ AC-TID 03/31/19 03/31/19 metFORMIN HCL 1,000 mg PO DAILY 03/31/19 03/31/19 Previous Rx's Medication Instructions Recorded Albuterol Inhaler [Ventolin Hfa 1 - 2 puff INHALATION RT-Q6H PRN 12/20/18 Inhaler] #1 inhaler methylPREDNISolone Dose Pack 4 mg PO DIRECTED #21 package 03/31/19 [Medrol Dose Pack] Allergies Allergy/AdvReac Type Severity Reaction Status Date / Time dust Allergy Mild Itching Uncoded 03/31/19 11:44 mold Allergy Mild Itching Uncoded 03/31/19 11:44 Review of Systems ROS Statement: Those systems with pertinent positive or pertinent negative responses have been documented in the HPI. ROS Other: All systems not noted in ROS Statement are negative. Past Medical History Past Medical History: Asthma, Diabetes Mellitus, Eye Disorder, Hyperlipidemia, Hypertension Additional Past Medical History / Comment(s): retinopathy, chronic pain History of Any Multi-Drug Resistant Organisms: None Reported Past Surgical History: No Surgical Hx Reported Past Anesthesia/Blood Transfusion Reactions: No Reported Reaction Additional Past Anesthesia/Blood Transfusion Reaction / Comment(s): no anesthesia Past Psychological History: No Psychological Hx Reported Smoking Status: Never smoker Past Alcohol Use History: None Reported Past Drug Use History: None Reported - Past Family History Father Family Medical History: Cancer Additional Family Medical History / Comment(s): Colon CA General Exam - General Exam Comments Initial Comments: This is a well-developed morbidly obese female who is awake alert oriented 3 she has just demonstrate audible wheezing and respiratory distress Limitations: no limitations General appearance: alert, anxious, in distress Head exam: Present: atraumatic, normocephalic, normal inspection Eye exam: Present: normal appearance, PERRL, EOMI. Absent: scleral icterus, conjunctival injection, periorbital swelling ENT exam: Present: normal exam, mucous membranes moist Neck exam: Present: normal inspection, full ROM. Absent: tenderness, meningismus, lymphadenopathy Respiratory exam: Present: wheezes, accessory muscle use, decreased breath sounds. Absent: respiratory distress, rales, rhonchi, stridor Cardiovascular Exam: Present: regular rate, normal rhythm, normal heart sounds. Absent: systolic murmur, diastolic murmur, rubs, gallop, clicks GI/Abdominal exam: Present: soft, normal bowel sounds, other (Obese abdomen). Absent: distended, tenderness, guarding, rebound, rigid Extremities exam: Present: normal inspection, full ROM, normal capillary refill. Absent: tenderness, pedal edema, joint swelling, calf tenderness Back exam: Present: normal inspection Neurological exam: Present: alert, oriented X3, CN II-XII intact Psychiatric exam: Present: normal affect, normal mood Skin exam: Present: warm, dry, intact, normal color. Absent: rash Course Vital Signs 03/31/19 03/31/19 03/31/19 11:30 11:31 12:07 Temperature 98.2 F Pulse Rate 94 89 Respiratory 26 H 20 Rate Blood Pressure 133/85 O2 Sat by Pulse 97 Oximetry 03/31/19 03/31/19 03/31/19 12:21 13:26 13:30 Temperature Pulse Rate 89 85 84 Respiratory 18 Rate Blood Pressure 129/80 O2 Sat by Pulse 98 Oximetry 03/31/19 13:41 Temperature Pulse Rate 85 Respiratory Rate Blood Pressure O2 Sat by Pulse Oximetry - Reevaluation(s) Reevaluation #1: 03/31/19 13:27 Patient states she is feeling improvement after the second treatment. He does demonstrate magnesium level of 1.7 she will get a gram IV piggyback. Medical Decision Making - Medical Decision Making I did reevaluate the patient on multiple occasions she is made dramatic turnaround with no further wheezing good aeration she feels back to normal. She does state that she has medications at home in addition that she will be placed on a Medrol Dosepak she is a follow-up with her doctor and return when necessary - Lab Data Result diagrams: 03/31/19 11:50 03/31/19 11:50 Lab Results 03/31/19 03/31/19 03/31/19 Range/Units 11:50 11:50 11:50 WBC 4.2 (3.8-10.6) k/uL RBC 4.90 (3.80-5.40) m/uL Hgb 12.1 (11.4-16.0) gm/dL Hct 38.0 (34.0-46.0) % MCV 77.5 L (80.0-100.0) fL MCH 24.7 L (25.0-35.0) pg MCHC 31.9 (31.0-37.0) g/dL RDW 13.5 (11.5-15.5) % Plt Count 307 (150-450) k/uL Neutrophils % 53 % Lymphocytes % 32 % Monocytes % 4 % Eosinophils % 8 % Basophils % 1 % Neutrophils # 2.2 (1.3-7.7) k/uL Lymphocytes # 1.4 (1.0-4.8) k/uL Monocytes # 0.2 (0-1.0) k/uL Eosinophils # 0.4 (0-0.7) k/uL Basophils # 0.0 (0-0.2) k/uL PT 9.4 (9.0-12.0) sec INR 0.8 (<1.2) APTT 23.4 (22.0-30.0) sec Sodium 137 (137-145) mmol/L Potassium 3.9 (3.5-5.1) mmol/L Chloride 104 (98-107) mmol/L Carbon Dioxide 23 (22-30) mmol/L Anion Gap 10 mmol/L BUN 5 L (7-17) mg/dL Creatinine 0.46 L (0.52-1.04) mg/dL Est GFR (CKD-EPI)AfAm >90 (>60 ml/min/1.73 sqM) Est GFR (CKD-EPI)NonAf >90 (>60 ml/min/1.73 sqM) Glucose 240 H (74-99) mg/dL Calcium 8.8 (8.4-10.2) mg/dL Magnesium 1.7 (1.6-2.3) mg/dL Total Bilirubin 0.3 (0.2-1.3) mg/dL AST 13 L (14-36) U/L ALT 18 (9-52) U/L Alkaline Phosphatase 161 H (38-126) U/L Creatine Kinase 74 (30-135) U/L Troponin I (0.000-0.034) ng/mL Total Protein 6.5 (6.3-8.2) g/dL Albumin 3.4 L (3.5-5.0) g/dL 03/31/19 Range/Units 11:50 WBC (3.8-10.6) k/uL RBC (3.80-5.40) m/uL Hgb (11.4-16.0) gm/dL Hct (34.0-46.0) % MCV (80.0-100.0) fL MCH (25.0-35.0) pg MCHC (31.0-37.0) g/dL RDW (11.5-15.5) % Plt Count (150-450) k/uL Neutrophils % % Lymphocytes % % Monocytes % % Eosinophils % % Basophils % % Neutrophils # (1.3-7.7) k/uL Lymphocytes # (1.0-4.8) k/uL Monocytes # (0-1.0) k/uL Eosinophils # (0-0.7) k/uL Basophils # (0-0.2) k/uL PT (9.0-12.0) sec INR (<1.2) APTT (22.0-30.0) sec Sodium (137-145) mmol/L Potassium (3.5-5.1) mmol/L Chloride (98-107) mmol/L Carbon Dioxide (22-30) mmol/L Anion Gap mmol/L BUN (7-17) mg/dL Creatinine (0.52-1.04) mg/dL Est GFR (CKD-EPI)AfAm (>60 ml/min/1.73 sqM) Est GFR (CKD-EPI)NonAf (>60 ml/min/1.73 sqM) Glucose (74-99) mg/dL Calcium (8.4-10.2) mg/dL Magnesium (1.6-2.3) mg/dL Total Bilirubin (0.2-1.3) mg/dL AST (14-36) U/L ALT (9-52) U/L Alkaline Phosphatase (38-126) U/L Creatine Kinase (30-135) U/L Troponin I <0.012 (0.000-0.034) ng/mL Total Protein (6.3-8.2) g/dL Albumin (3.5-5.0) g/dL - EKG Data -: EKG Interpreted by [facility] EKG shows normal: sinus rhythm (Sinus rhythm AL interval is 128 ventricular rate 90 QRS 76 QT since QTC 350/437 artifact is present) - Radiology Data Radiology results: report reviewed (I did review the imaging and report no acute findings), image reviewed Disposition Clinical Impression: Asthma exacerbation Disposition: HOME SELF-CARE Condition: Good Instructions (If sedation given, give patient instructions): Asthma (ED) Prescriptions: methylPREDNISolone Dose Pack [Medrol Dose Pack] 4 mg PO DIRECTED #21 package Is patient prescribed a controlled substance at d/c from ED?: No Referrals: Cher Kimble MD [Primary Care Provider] - 1-2 days
[2019-03-31 12:34] LABS: INR 0.8 (<1.2); Partial Thromboplastin Time 23.4 sec (22.0-30.0); Prothrombin Time 9.4 sec (9.0-12.0)
[2019-03-31 13:01] LABS: ALT 18 U/L (9-52); AST 13 U/L (14-36); African American GFR (CKD) >90 (>60 ml/min/1.73 sqM); Albumin 3.4 g/dL (3.5-5.0); Alkaline Phosphatase 161 U/L (38-126); Blood Urea Nitrogen 5 mg/dL (7-17); Calcium 8.8 mg/dL (8.4-10.2); Carbon Dioxide 23 mmol/L (22-30); Creatine Kinase 74 U/L (30-135); Glucose 240 mg/dL (74-99); Magnesium 1.7 mg/dL (1.6-2.3); Total Bilirubin 0.3 mg/dL (0.2-1.3); Total Protein 6.5 g/dL (6.3-8.2)
[2019-03-31 13:13] LABS: Anion Gap 10 mmol/L; Chloride 104 mmol/L (98-107); Potassium 3.9 mmol/L (3.5-5.1); Sodium 137 mmol/L (137-145)
[2019-03-31] MEDS ORDERED: MAGNESIUM SULFATE-D5W PMX 1 GM in DEXTROSE/WATER 1 100ML.BAG IVPB ONE (13:20)
[2019-03-31 13:27] VITALS: RESP 18
--- NOTE | 2019-03-31 13:45 | XR ---
EXAMINATION TYPE: XR chest 2V DATE OF EXAM: 03/31/2019 COMPARISON: 12/18/2018 INDICATION: Difficulty breathing, short of breath TECHNIQUE: Frontal and lateral views of the chest are obtained. FINDINGS: The heart size is normal. The pulmonary vasculature is normal. The lungs are clear. IMPRESSION: 1. No acute pulmonary process.
[2019-03-31] MEDS ORDERED: methylPREDNISolone SOD SUCCI 125 MG/2 ML VIAL IV STA (14:57)
[2019-03-31 15:08] VITALS: BP 127/71; PULSE 86; TEMP 97.9
== END 2019-03-31 15:06 | disposition home or self-care (01) ==
LOC: EC 11:25
DX: J45.901 Unspecified asthma with (acute) exacerbation (principal); E11.319 Type 2 diabetes mellitus with unspecified diabetic retinopathy without macular edema; E66.01 Morbid (severe) obesity due to excess calories; Z68.43 Body mass index [BMI] 50.0-59.9, adult; Z79.4 Long term (current) use of insulin; Z79.899 Other long term (current) drug therapy; Z91.048 Other nonmedicinal substance allergy status; Z91.09 Other allergy status, other than to drugs and biological substances
CPT/HCPCS: 36415; 94640 ×2; 93005; 80053; 82550; 83735; 84484; 85025; 85610; 85730; 71046; 99285; 96365; 96375; J2930; J3475

== ENCOUNTER 2019-04-18 13:54 | Observation (INO) | payer OTHER ==
[2019-04-18] MEDS ORDERED: methylPREDNISolone SOD SUCCI 125 MG/2 ML VIAL IV STA (14:11)
[2019-04-18] MEDS ORDERED: IPRATROPIUM-ALBUTEROL 3 ML NEB INHALATION STA ×3 (14:11→16:35)
[2019-04-18] MEDS ORDERED: MAGNESIUM SULFATE-D5W PMX 1 GM in DEXTROSE/WATER 1 100ML.BAG IVPB ONE (14:39)
[2019-04-18 14:43] LABS: Basophils % (A) 1 %; Eosinophils # (A) 0.5 k/uL (0-0.7); Eosinophils % (A) 9 %; HCT 39.7 % (34.0-46.0); HGB 12.4 gm/dL (11.4-16.0); Lymphocytes # (A) 1.2 k/uL (1.0-4.8); Lymphocytes % (A) 20 %; MCH 24.6 pg (25.0-35.0); MCHC 31.2 g/dL (31.0-37.0); Mean Platelet Volume 7.2; Monocytes # (A) 0.3 k/uL (0-1.0); Monocytes % (A) 5 %; Neutrophils # (A) 3.7 k/uL (1.3-7.7); Neutrophils % (A) 64 %; Platelet Count 277 k/uL (150-450); RBC 5.02 m/uL (3.80-5.40); RDW 13.3 % (11.5-15.5); WBC 5.8 k/uL (3.8-10.6)
[2019-04-18 14:53] LABS: INR 0.9 (<1.2); Partial Thromboplastin Time 23.1 sec (22.0-30.0); Prothrombin Time 9.4 sec (9.0-12.0)
[2019-04-18 14:56] LABS: ALT 14 U/L (9-52); AST 9 U/L (14-36); African American GFR (CKD) >90 (>60 ml/min/1.73 sqM); Albumin 3.6 g/dL (3.5-5.0); Alkaline Phosphatase 179 U/L (38-126); Anion Gap 9 mmol/L; Blood Urea Nitrogen 6 mg/dL (7-17); Carbon Dioxide 23 mmol/L (22-30); Chloride 104 mmol/L (98-107); Glucose 354 mg/dL (74-99); Magnesium 1.8 mg/dL (1.6-2.3); Potassium 4.7 mmol/L (3.5-5.1); Sodium 136 mmol/L (137-145); Total Bilirubin 0.2 mg/dL (0.2-1.3); Total Protein 6.8 g/dL (6.3-8.2)
--- NOTE | 2019-04-18 15:16 | ED ---
SOB HPI - General Chief Complaint: Shortness of Breath Stated Complaint: ZINA Time Seen by Provider: 04/18/19 14:12 Source: patient Mode of arrival: wheelchair Limitations: no limitations - History of Present Illness Initial Comments: 53-year-old female history of asthma presenting today for chief complaint of shortness of breath. Patient states the past 2 days she has felt increased shortness of breath and audible wheezing. Patient states it feels similar to when she's had previous asthma exacerbations. Patient does know however some pain in the left lower chest that increases with deep inspiration. Patient denies cough fever chills earlier sputum production. Patient denies any hemoptysis recent surgeries she states she did have a DVT previously from a PICC line. She states she has not anticoagulation therapy denies history of pulmonary embolism. Patient denies any coronary artery disease. She states she does have history of diabetes and hypertension. Patient states she does have history of coronary artery disease within her family. Patient denies any back pain nausea, abdominal pain chest pressure. Patient states that she did attempt to use her rescue inhaler at home however this did not seem to be working. Remaining review of systems negative. Upon arrival patient has audible wheeze with increased respiration rate. afebrile. - Related Data Home Medications Medication Instructions Recorded Confirmed Insulin Glargine,Hum.rec.anlog 62 unit SQ HS 07/26/18 04/18/19 [Basaglamarjit Rey U-100] Mometasone/Formoterol [Dulera 100 2 puff INHALATION RT-BID 07/26/18 04/18/19 Mcg/5 Mcg Inhaler] Multivitamins, Thera [Multivitamin 1 tab PO DAILY 07/26/18 04/18/19 (formulary)] Montelukast Sodium [Singulair] 10 mg PO HS 12/18/18 04/18/19 Albuterol Nebulized [Ventolin 2.5 mg INHALATION RT-Q4H PRN 03/31/19 04/18/19 Nebulized] Insulin Lispro [Admelog] 24 unit SQ AC-TID 03/31/19 04/18/19 metFORMIN HCL 1,000 mg PO DAILY 03/31/19 04/18/19 Loratadine [Claritin] 10 mg PO DAILY 04/18/19 04/18/19 Previous Rx's Medication Instructions Recorded Albuterol Inhaler [Ventolin Hfa 1 - 2 puff INHALATION RT-Q6H PRN 12/20/18 Inhaler] #1 inhaler Allergies Allergy/AdvReac Type Severity Reaction Status Date / Time mold AdvReac Itching Verified 04/18/19 14:42 dust Allergy Mild Itching Uncoded 04/18/19 14:07 Review of Systems ROS Statement: Those systems with pertinent positive or pertinent negative responses have been documented in the HPI. ROS Other: All systems not noted in ROS Statement are negative. Past Medical History Past Medical History: Asthma, Diabetes Mellitus, Eye Disorder, Hyperlipidemia, Hypertension Additional Past Medical History / Comment(s): retinopathy, chronic pain History of Any Multi-Drug Resistant Organisms: None Reported Past Surgical History: No Surgical Hx Reported Past Anesthesia/Blood Transfusion Reactions: No Reported Reaction Additional Past Anesthesia/Blood Transfusion Reaction / Comment(s): no anesthesia Past Psychological History: No Psychological Hx Reported Smoking Status: Never smoker Past Alcohol Use History: None Reported Past Drug Use History: None Reported - Past Family History Father Family Medical History: Cancer Additional Family Medical History / Comment(s): Colon CA General Exam - General Exam Comments Initial Comments: General: The patient is awake and alert, in no distress, and does not appear acutely ill. Eye: Pupils are equal, round and reactive to light, extra-ocular movements are intact. No nystagmus. There is normal conjunctiva bilaterally. No signs of icterus. Ears, nose, mouth and throat: There are moist mucous membranes and no oral lesions. Neck: The neck is supple, there is no tenderness or JVD. Cardiovascular: There is a regular rate and rhythm. No murmur, rub or gallop is appreciated. Respiratory: Patient has significant abdominal breathing. No retractions. No cyanosis. Patient has both is return expiratory wheeze. No noted rales or stridor. Lungs sounds are present in all frankel. Gastrointestinal: No abdominal pain to light and deep palpation. Musculoskeletal: Normal ROM, no tenderness. Strength 5/5. Sensation intact. Radial pulses equal bilaterally 2+. Neurological: A&O x 3. CN II-XII intact, There are no obvious motor or sensory deficits. Coordination appears grossly intact. Speech is normal. Skin: Skin is warm and dry and no rashes or lesions are noted. Bilateral lower extremity edema noted Psychiatric: Cooperative, appropriate mood & affect, normal judgment. Limitations: no limitations Course Vital Signs 04/18/19 04/18/19 04/18/19 14:05 14:27 14:30 Temperature 98.1 F Pulse Rate 99 94 100 Respiratory 26 H 22 25 H Rate Blood Pressure 124/73 147/82 O2 Sat by Pulse 98 99 Oximetry 04/18/19 04/18/19 04/18/19 14:35 15:00 15:26 Temperature Pulse Rate 92 91 Respiratory Rate Blood Pressure 154/89 O2 Sat by Pulse Oximetry 04/18/19 04/18/19 04/18/19 15:30 15:36 16:00 Temperature Pulse Rate 90 91 93 Respiratory 19 10 L Rate Blood Pressure 130/73 129/74 O2 Sat by Pulse 99 98 Oximetry 04/18/19 04/18/19 04/18/19 17:00 17:13 17:23 Temperature Pulse Rate 92 92 Respiratory Rate Blood Pressure 141/82 O2 Sat by Pulse Oximetry Medical Decision Making - Medical Decision Making 53-year-old female presenting for shortness of breath. Patient has history of asthma says it feels similar to asthma exacerbations in the past. However patient does note left-sided sharp chest pain with inspiration. D-dimer elevated CT and a negative for pulmonary embolism chest x-ray revealed no acute abnormalities no pneumothorax or consolidations. No evidence of acute heart failure. BMP within acceptable limits. Initial troponin negative. EKG no findings consistent with acute coronary syndrome. EKG was interpreted by my attending provider in addition to myself. Patient had multiple DuoNeb treatments in the emergency department she states that she feels better symptomatically however she continues to have significant stridor wheeze. Patient will be admitted for asthma exacerbation and cardiac evaluation given patient's risk factors and complaint of chest pain. Patient is agreeable to this admission. She received IV Solu Medrol emergency department. Patient was discharged appearing well. Dr. Patel did speak with admitting provider Dr. Mayes after we discussed the case. - Lab Data Result diagrams: 04/18/19 14:28 04/18/19 14:28 Lab Results 04/18/19 04/18/19 04/18/19 Range/Units 14:28 14:28 14:28 WBC 5.8 (3.8-10.6) k/uL RBC 5.02 (3.80-5.40) m/uL Hgb 12.4 (11.4-16.0) gm/dL Hct 39.7 (34.0-46.0) % MCV 79.0 L (80.0-100.0) fL MCH 24.6 L (25.0-35.0) pg MCHC 31.2 (31.0-37.0) g/dL RDW 13.3 (11.5-15.5) % Plt Count 277 (150-450) k/uL Neutrophils % 64 % Lymphocytes % 20 % Monocytes % 5 % Eosinophils % 9 % Basophils % 1 % Neutrophils # 3.7 (1.3-7.7) k/uL Lymphocytes # 1.2 (1.0-4.8) k/uL Monocytes # 0.3 (0-1.0) k/uL Eosinophils # 0.5 (0-0.7) k/uL Basophils # 0.0 (0-0.2) k/uL PT (9.0-12.0) sec INR (<1.2) APTT (22.0-30.0) sec D-Dimer (<0.60) mg/L FEU Sodium 136 L (137-145) mmol/L Potassium 4.7 (3.5-5.1) mmol/L Chloride 104 (98-107) mmol/L Carbon Dioxide 23 (22-30) mmol/L Anion Gap 9 mmol/L BUN 6 L (7-17) mg/dL Creatinine 0.44 L (0.52-1.04) mg/dL Est GFR (CKD-EPI)AfAm >90 (>60 ml/min/1.73 sqM) Est GFR (CKD-EPI)NonAf >90 (>60 ml/min/1.73 sqM) Glucose 354 H (74-99) mg/dL Calcium 9.0 (8.4-10.2) mg/dL Magnesium 1.8 (1.6-2.3) mg/dL Total Bilirubin 0.2 (0.2-1.3) mg/dL AST 9 L (14-36) U/L ALT 14 (9-52) U/L Alkaline Phosphatase 179 H (38-126) U/L Troponin I (0.000-0.034) ng/mL NT-Pro-B Natriuret Pep 52 pg/mL Total Protein 6.8 (6.3-8.2) g/dL Albumin 3.6 (3.5-5.0) g/dL 04/18/19 04/18/19 04/18/19 Range/Units 14:28 14:28 14:28 WBC (3.8-10.6) k/uL RBC (3.80-5.40) m/uL Hgb (11.4-16.0) gm/dL Hct (34.0-46.0) % MCV (80.0-100.0) fL MCH (25.0-35.0) pg MCHC (31.0-37.0) g/dL RDW (11.5-15.5) % Plt Count (150-450) k/uL Neutrophils % % Lymphocytes % % Monocytes % % Eosinophils % % Basophils % % Neutrophils # (1.3-7.7) k/uL Lymphocytes # (1.0-4.8) k/uL Monocytes # (0-1.0) k/uL Eosinophils # (0-0.7) k/uL Basophils # (0-0.2) k/uL PT 9.4 (9.0-12.0) sec INR 0.9 (<1.2) APTT 23.1 (22.0-30.0) sec D-Dimer 0.75 H (<0.60) mg/L FEU Sodium (137-145) mmol/L Potassium (3.5-5.1) mmol/L Chloride (98-107) mmol/L Carbon Dioxide (22-30) mmol/L Anion Gap mmol/L BUN (7-17) mg/dL Creatinine (0.52-1.04) mg/dL Est GFR (CKD-EPI)AfAm (>60 ml/min/1.73 sqM) Est GFR (CKD-EPI)NonAf (>60 ml/min/1.73 sqM) Glucose (74-99) mg/dL Calcium (8.4-10.2) mg/dL Magnesium (1.6-2.3) mg/dL Total Bilirubin (0.2-1.3) mg/dL AST (14-36) U/L ALT (9-52) U/L Alkaline Phosphatase (38-126) U/L Troponin I <0.012 (0.000-0.034) ng/mL NT-Pro-B Natriuret Pep pg/mL Total Protein (6.3-8.2) g/dL Albumin (3.5-5.0) g/dL Disposition Clinical Impression: Difficulty breathing, Asthma exacerbation, Chest pain Disposition: ADMITTED IP TO THIS HOSP Condition: Stable Is patient prescribed a controlled substance at d/c from ED?: No Time of Disposition: 18:18 Decision to Admit Reason: Admit from EC Decision Date: 04/18/19 Decision Time: 04:50
--- NOTE | 2019-04-18 15:25 | XR ---
EXAMINATION TYPE: XR chest 2V DATE OF EXAM: 04/18/2019 COMPARISON: Right chest x-ray 03/31/2019 HISTORY: Difficulty breathing TECHNIQUE: Frontal and lateral views of the chest are obtained. FINDINGS: There is no focal air space opacity, pleural effusion, or pneumothorax seen. The cardiac silhouette size is stable and enlarged and may be accentuated somewhat due to rotation. The osseous structures are intact. There are overlying leads. Increased AP diameter chest could be indicative of underlying COPD. There is thoracic spondylosis. IMPRESSION: No acute cardiopulmonary process. Stable cardiomegaly.
[2019-04-18] MEDS ORDERED: INSULIN REGULAR 100 UNIT/ML VIAL SQ ONE (16:29)
[2019-04-18] MEDS ORDERED: IPRATROPIUM-ALBUTEROL 3 ML NEB INHALATION PRN (16:30)
[2019-04-18] MEDS ORDERED: SODIUM CHLORIDE 0.9% 500 ML 500 ML IV ONE (16:30)
--- NOTE | 2019-04-18 16:38 | CT ---
EXAMINATION TYPE: CT angio chest with contrast and with 3-D reconstruction renderings DATE OF EXAM: 04/18/2019 4:18 PM COMPARISON: None HISTORY: Difficulty breathing and wheezing. CT DLP: 969 mGycm Automated exposure control for dose reduction was used. CONTRAST: CTA scan of the thorax is performed with IV Contrast, patient injected with 100 mL of Isovu e 370, pulmonary embolism protocol. Three-D reconstructions. FINDINGS: LUNGS: The lungs are grossly clear, there is no concerning parenchymal mass or nodule identified. The re is no pleural effusion or pneumothorax seen. The tracheobronchial tree is patent. MEDIASTINUM: There is satisfactory enhancement of the pulmonary artery and its branches, there is no CT evidence for pulmonary embolism. There are no greater than 1 cm hilar or mediastinal lymph nodes. No acute aortic findings. There is no cardiomegaly and no pericardial effusion, but prominent left and right coronary calcifi cations are present. OTHER: No additional significant abnormality is seen. IMPRESSION: 1. NEGATIVE FOR PULMONARY EMBOLISM OR OTHER ACUTE CT PROCESS. 2. CORONARY CALCIFICATIONS.
--- NOTE | 2019-04-18 17:27 | P.HPIM ---
History of Present Illness H&P Date: 04/18/19 The patient is a 48-year-old female with a PMH of diabetes mellitus, and asthma who presented to the ED with complaints of gradually worsening shortness of breath and wheezing over the past few days. The patient notes compliance with her inhalers but reports worsening shortness of breath. She notes that she has been using her rescue inhaler every 4 hours without much improvement. Patient also endorsed gradually worsening bilateral lower extremity edema for which she was initiated on Lasix by her PCP without significant improvement. The patient otherwise denied fever, chills, or cough. She further denied any lower extremity pain, chest pain, nausea, vomiting, diaphoresis. Denied abdominal pain, dysuria, or diarrhea. The patient underwent an extensive evaluation in the emergency room with chest x-ray that revealed stable cardiomegaly. Laboratory evaluation revealed a d-dimer of 0.75, troponins less than 0.012, BNP 52, WBC 5.8, hemoglobin 12.4, platelets 277, and glucose 354. The patient was subsequently admitted to the medicine service for further management of acute asthma exacerbation. Review of Systems Pertinent positives and negatives as discussed in HPI, a complete review of systems was performed and all other systems are negative. Past Medical History Past Medical History: Asthma, Diabetes Mellitus, Eye Disorder, Hyperlipidemia, Hypertension Additional Past Medical History / Comment(s): retinopathy, chronic pain History of Any Multi-Drug Resistant Organisms: None Reported Past Surgical History: No Surgical Hx Reported Past Anesthesia/Blood Transfusion Reactions: No Reported Reaction Additional Past Anesthesia/Blood Transfusion Reaction / Comment(s): no anesthesia Past Psychological History: No Psychological Hx Reported Smoking Status: Never smoker Past Alcohol Use History: None Reported Past Drug Use History: None Reported - Past Family History Father Family Medical History: Cancer Additional Family Medical History / Comment(s): Colon CA Medications and Allergies Home Medications Medication Instructions Recorded Confirmed Type Insulin Glargine,Hum.rec.anlog 62 unit SQ HS 07/26/18 04/18/19 History [Basaglar Candido U-100] Mometasone/Formoterol [Dulera 100 2 puff INHALATION RT-BID 07/26/18 04/18/19 History Mcg/5 Mcg Inhaler] Multivitamins, Thera [Multivitamin 1 tab PO DAILY 07/26/18 04/18/19 History (formulary)] Montelukast Sodium [Singulair] 10 mg PO HS 12/18/18 04/18/19 History Albuterol Inhaler [Ventolin Hfa 1 - 2 puff INHALATION RT-Q6H PRN 12/20/18 04/18/19 Rx Inhaler] #1 inhaler Albuterol Nebulized [Ventolin 2.5 mg INHALATION RT-Q4H PRN 03/31/19 04/18/19 History Nebulized] Insulin Lispro [Admelog] 24 unit SQ AC-TID 03/31/19 04/18/19 History metFORMIN HCL 1,000 mg PO DAILY 03/31/19 04/18/19 History Loratadine [Claritin] 10 mg PO DAILY 04/18/19 04/18/19 History Allergies Allergy/AdvReac Type Severity Reaction Status Date / Time mold AdvReac Itching Verified 04/18/19 14:42 dust Allergy Mild Itching Uncoded 04/18/19 14:07 Physical Exam Vitals: Vital Signs Temp Pulse Resp BP Pulse Ox 04/18/19 17:13 92 04/18/19 17:00 141/82 04/18/19 16:00 93 10 L 129/74 98 04/18/19 15:36 91 04/18/19 15:30 90 19 130/73 99 04/18/19 15:26 91 04/18/19 15:00 154/89 04/18/19 14:35 92 04/18/19 14:30 100 25 H 147/82 99 04/18/19 14:27 94 22 04/18/19 14:05 98.1 F 99 26 H 124/73 98 Intake and Output 04/18/19 04/18/19 04/18/19 06:59 14:59 22:59 Other: Weight 145.15 kg General: non toxic, no distress, appears at stated age, morbidly obese Derm: no unusual rashes/lesions no unusual ecchymoses, warm, dry Head: atraumatic, normocephalic, symmetric Eyes: EOMI, no lid lag, anicteric sclera, pupils equal round reactive to light ENT: Nose and ears atraumatic, no thrush, no pharyngeal erythema Neck: No thyromegaly, no cervical lymphadenopathy, trachea midline, supple Mouth: no lip lesion, mucus membranes moist Cardiovascular: S1S2 reg, no murmur, positive posterior tibial pulse bilateral, no edema, capillary refill less than 2 seconds Lungs: Bilateral wheezing, no rhonchi, no rales , no accessory muscle use Abdominal: soft, nontender to palpation, no guarding, no appreciable organomegaly, normal bowel sounds Ext: no gross muscle atrophy, muscle strength 5 out of 5 in all 4 extremities grossly, no contractures, Neuro: CN II-XI grossly intact, light touch intact all 4 extremities, finger to nose within normal limits, Psych: Alert, oriented, appropriate affect Results CBC & Chem 7: 04/18/19 14:28 04/18/19 14:28 Labs: Abnormal Lab Results - Last 24 Hours (Table) 04/18/19 04/18/19 04/18/19 Range/Units 14:28 14:28 14:28 MCV 79.0 L (80.0-100.0) fL MCH 24.6 L (25.0-35.0) pg D-Dimer 0.75 H (<0.60) mg/L FEU Sodium 136 L (137-145) mmol/L BUN 6 L (7-17) mg/dL Creatinine 0.44 L (0.52-1.04) mg/dL Glucose 354 H (74-99) mg/dL AST 9 L (14-36) U/L Alkaline Phosphatase 179 H (38-126) U/L Assessment and Plan Plan: Acute asthma exacerbation -DuoNeb's -Continue with Solu-Medrol -Singulair Type 2 Diabetes mellitus with hyperglycemia -Lispro insulin sliding scale with fingersticks -Continue with home insulin dosing Morbid obesity -Advised patient on importance of weight loss and outpatient dietitian follow-up DVT prophylaxis -Lovenox The patient is admitted with an anticipated greater than 2 midnight stay for evaluation of acute asthma exacerbation. CODE STATUS:Full Code Discussed with: Patient Anticipated discharge date: 2-[address]: Home A total of 45 minutes was spent on the care of this complex patient more than 50% of the time was spent in counseling and care coordination.
[2019-04-18 19:07] VITALS: BMI 50.1
[2019-04-18 20:11] LABS: Glucose,Whole Blood 376 mg/dL (75-99)
[2019-04-18] MEDS: INSULIN ASPART (NovoLOG) 100 UNIT/ML VIAL SQ SCH (20:18)
[2019-04-18] MEDS: SYMBICORT 80-4.5 MCG INHALER INHALATION SCH (20:18)
[2019-04-18] MEDS: IPRATROPIUM-ALBUTEROL 3 ML NEB INHALATION SCH (20:18)
[2019-04-18] MEDS ORDERED: INSULIN DETEMIR (LEVEMIR) 100 UNIT/ML SYR SQ SCH (21:00)
[2019-04-18] MEDS ORDERED: MONTELUKAST 10 MG TAB PO SCH (21:00)
[2019-04-18] MEDS ORDERED: ACETAMINOPHEN TAB 325 MG TAB PO PRN (22:55)
[2019-04-18] MEDS: methylPREDNISolone SOD SUCCI 125 MG/2 ML VIAL IV SCH (22:59)
[2019-04-19 06:43] LABS: Glucose,Whole Blood 288 mg/dL (75-99)
[2019-04-19] MEDS: IPRATROPIUM-ALBUTEROL 3 ML NEB INHALATION SCH ×2 (07:30→12:52)
[2019-04-19] MEDS: SYMBICORT 80-4.5 MCG INHALER INHALATION SCH (07:31)
[2019-04-19 07:58] VITALS: RESP 18
[2019-04-19] MEDS: methylPREDNISolone SOD SUCCI 125 MG/2 ML VIAL IV SCH (08:52)
[2019-04-19] MEDS: INSULIN ASPART (NovoLOG) 100 UNIT/ML VIAL SQ SCH ×4 (08:52→12:30)
[2019-04-19] MEDS ORDERED: predniSONE 20 MG TAB PO SCH (09:00)
[2019-04-19] MEDS ORDERED: ENOXAPARIN 40 MG/0.4 ML SYRINGE SQ SCH (09:00)
--- NOTE | 2019-04-19 09:31 | P.DS ---
Providers Date of admission: 04/18/19 16:53 Expected date of discharge: 04/19/19 Attending physician: Moreno Gallagher MD Consults: 04/18/19 16:30 Consult Physician Routine Consulting Provider: Niels Lundy Consult Reason/Comments: SOB, leg swelling, chest pain (admitted asthma) Do you want consulting provider notified?: Yes Primary care physician: Cher Kimble MD Hospital Course: The patient is a 53-year-old female with a PMH of diabetes mellitus, and asthma who presented to the ED with complaints of gradually worsening shortness of breath and wheezing over the past few days. The patient noted compliance with her inhalers but reports worsening shortness of breath. She noted that she had been using her rescue inhaler every 4 hours without much improvement. Patient a lso endorsed gradually worsening bilateral lower extremity edema for which she was initiated on Lasix by her PCP without significant improvement. The patient otherwise denied fever, chills, or cough. She further denied any lower extremity pain, chest pain, nausea, vomiting, diaphoresis. Denied abdominal pain, dysuria, or diarrhea. The patient underwent an extensive evaluation in the emergency room with chest x-ray that revealed stable cardiomegaly. Chest CTA was performed and revealed coronary calcifications. Laboratory evaluation revealed a d-dimer of 0.75, troponins less than 0.012, BNP 52, WBC 5.8, hemoglobin 12.4, platelets 277, and glucose 354. The patient was subsequently admitted to the medicine service for further management of acute asthma exacerbation. The patient was started on IV Solu-Medrol along with DuoNeb's and her breathing improved significantly the following morning. Cardiology evaluated the patient and recommended an outpatient stress test. Patient was seen and examined at the bedside on the day of discharge. She reported no further shortness of breath or wheezing. She was in good spirits and was eager to be discharged home. She denied fever, chills, chest pain, nausea, vomiting, or cough. She further denied abdominal pain, or diarrhea. Physical Examination General: Non-toxic, in no acute distress, appears stated age, morbidly obese HEENT: NC/AT, anicteric sclerae, moist conjunctiva, no lid-lag, PERRLA Cardiovascular: S1/S2 wnl, no murmurs, rubs, or gallops Lungs: Clear to auscultation, normal respiratory effort, no accessory muscle use Abdominal: Soft, non-tender, non-distended, no guarding, rebound, or rigidity Skin: Warm, dry Extremities: 1+ bilateral lower extremity pitting edema, no contractures Psychiatric: Alert and oriented to person, place and time, appropriate affect Neuro: CN II-XII grossly intact, Strength 5/5 in all 4 extremities, Speech intact, Sensation to light touch grossly intact throughout Discharge diagnosis: Acute asthma exacerbation; type 2 diabetes mellitus with hyperglycemia; coronary calcifications; morbid obesity A total of 30 minutes of time were spent preparing this complex discharge summary. Patient Condition at Discharge: Stable Plan - Discharge Summary Discharge Rx Participant: No New Discharge Prescriptions: New predniSONE 0 mg PO DIRECTED #18 tab Continue Mometasone/Formoterol [Dulera 100 Mcg/5 Mcg Inhaler] 2 puff INHALATION RT-BID Insulin Glargine,Hum.rec.anlog [Basaglar Kwikpen U-100] 62 unit SQ HS Multivitamins, Thera [Multivitamin (formulary)] 1 tab PO DAILY Montelukast Sodium [Singulair] 10 mg PO HS Albuterol Inhaler [Ventolin Hfa Inhaler] 1 - 2 puff INHALATION RT-Q6H PRN #1 inhaler PRN Reason: Shortness Of Breath metFORMIN HCL 1,000 mg PO DAILY Albuterol Nebulized [Ventolin Nebulized] 2.5 mg INHALATION RT-Q4H PRN PRN Reason: Shortness Of Breath Insulin Lispro [Admelog] 24 unit SQ AC-TID Loratadine [Claritin] 10 mg PO DAILY Discharge Medication List Insulin Glargine,Hum.rec.anlog [Basaglar Kwikpen U-100] 62 unit SQ HS 07/26/18 [History] Mometasone/Formoterol [Dulera 100 Mcg/5 Mcg Inhaler] 2 puff INHALATION RT-BID 07/26/18 [History] Multivitamins, Thera [Multivitamin (formulary)] 1 tab PO DAILY 07/26/18 [History] Montelukast Sodium [Singulair] 10 mg PO HS 12/18/18 [History] Albuterol Inhaler [Ventolin Hfa Inhaler] 1 - 2 puff INHALATION RT-Q6H PRN #1 inhaler 12/20/18 [Rx] Albuterol Nebulized [Ventolin Nebulized] 2.5 mg INHALATION RT-Q4H PRN 03/31/19 [History] Insulin Lispro [Admelog] 24 unit SQ AC-TID 03/31/19 [History] metFORMIN HCL 1,000 mg PO DAILY 03/31/19 [History] Loratadine [Claritin] 10 mg PO DAILY 04/18/19 [History] predniSONE 0 mg PO DIRECTED #18 tab 04/19/19 [Rx] Follow up Appointment(s)/Referral(s): Cher Kimble MD [Primary Care Provider] - 1-2 days Russell Delvalle MD [STAFF PHYSICIAN] - 1 Week Activity/Diet/Wound Care/Special Instructions: Patient advised to follow-up with Cardiology for stress test as an outpatient. Appointment made for the patient. Discharge Disposition: HOME SELF-CARE
--- NOTE | 2019-04-19 10:48 | CONS ---
CONSULTATION This is an obese 53-year-old lady with a known diagnosis of bronchial asthma who sees Dr. Cher Kimble and Dr. Isis Delvalle for her PCP and pulmonology. She is here mainly because she had some worsening breathing issues. She had sharp chest pain lasting a few seconds. The quality of the pain is atypical. Most of her issues were respiratory in nature and this seems to have improved already. She is resting comfortably without symptoms. Because of some sharp pleuritic pain that lasted a few seconds and an abnormal D-dimer, she went on to have a CT angiography which did not reveal any significant abnormalities. Three sets of troponins are normal. She is resting comfortably without symptoms. She has obstructive sleep apnea. She is obese and wears her CPAP faithfully. At the time of my evaluation, she is asymptomatic and she insists that her pain was very trivial lasted a few seconds and she is quite asymptomatic. A recent echo performed last month revealed normal LV size and systolic function without pulmonary hypertension. PAST MEDICAL HISTORY: Past medical history is remarkable for bronchial asthma, type 2 diabetes, hypertension, hyperlipidemia, obesity. She is status post sleep study and wears a CPAP regularly. MEDICATIONS: Medications at home include Singulair, Ventolin, insulin, metformin, Claritin, multivitamins, and she also takes some inhalers. ALLERGIES: No known drug allergies. PHYSICAL EXAMINATION: On examination, blood pressure is 122/80, pulse rate 70 per minute regular. HEENT: Unremarkable. Fundus was not examined by me. Neck is supple. No JVD. I do not hear a carotid bruit. There is no thyromegaly. Heart exam reveals S1, S2, but distant heart sounds. No significant murmurs. Lungs are actually clear. Abdomen is soft, nontender. Lower extremities reveal normal pulses, trace edema. Central nervous system is grossly within normal limits. EKG revealed sinus mechanism, no acute changes. IMPRESSION: 1. Atypical chest pain. 2. Exacerbation of bronchial asthma, which has improved. 3. Obstructive sleep apnea. 4. Type 2 diabetes mellitus. 5. Hypertension. 6. Obstructive sleep apnea syndrome, wears a CPAP. RECOMMENDATIONS: I am recommending that from a cardiac standpoint no intervention is necessary. Once her acute exacerbation is completely resolved; as an outpatient, she can have a stress test, but no testing is necessary at this time from a cardiac standpoint. I discussed my thoughts in detail with the patient. Thank you very much for the consult. FREDI / AMENA: [id number] /
[2019-04-19 11:32] VITALS: BP 138/84; TEMP 98.3
[2019-04-19 11:47] LABS: Glucose,Whole Blood 261 mg/dL (75-99)
[2019-04-19 12:55] VITALS: PULSE 90
== END 2019-04-19 16:03 | disposition home or self-care (01) ==
LOC: EC 13:54 → 1SOBS 16:53
PROVIDERS: ADMIT Internal Medicine; ATTEND Internal Medicine
DX: J45.901 Unspecified asthma with (acute) exacerbation (principal); R07.89 Other chest pain; G47.33 Obstructive sleep apnea (adult) (pediatric); Z99.89 Dependence on other enabling machines and devices; R79.89 Other specified abnormal findings of blood chemistry; I10 Essential (primary) hypertension; I25.10 Atherosclerotic heart disease of native coronary artery without angina pectoris; E66.01 Morbid (severe) obesity due to excess calories; Z68.43 Body mass index [BMI] 50.0-59.9, adult; E11.65 Type 2 diabetes mellitus with hyperglycemia; E11.319 Type 2 diabetes mellitus with unspecified diabetic retinopathy without macular edema; R60.0 Localized edema; E78.5 Hyperlipidemia, unspecified; G89.29 Other chronic pain; Z79.51 Long term (current) use of inhaled steroids; Z79.4 Long term (current) use of insulin; Z79.899 Other long term (current) drug therapy; Z91.048 Other nonmedicinal substance allergy status; Z80.0 Family history of malignant neoplasm of digestive organs
CPT/HCPCS: 96372; 96376 ×2; 96365; 96375; 99285; 36415; 94660 ×2; 94640 ×4; 94760; 93005; 85379; 83880; 80053; 83735; 84484 ×2; 85025; 85610; 85730; 71046; 71275; G0378 ×2; J2930 ×2; J1650; J3475; Q9967

== ENCOUNTER → 2019-06-12 | Outpatient (CLI) | payer OTHER ==
[2019-06-12 12:45] LABS: African American GFR (CKD) >90 (>60 ml/min/1.73 sqM); Anion Gap 8 mmol/L; Blood Urea Nitrogen 10 mg/dL (7-17); Carbon Dioxide 27 mmol/L (22-30); Chloride 102 mmol/L (98-107); Glucose 259 mg/dL (74-99); Magnesium 1.7 mg/dL (1.6-2.3); Potassium 4.5 mmol/L (3.5-5.1); Sodium 137 mmol/L (137-145)
[2019-06-12 12:49] LABS: HCT 40.7 % (34.0-46.0); HGB 13.1 gm/dL (11.4-16.0); Hypochromasia Slight; MCHC 32.2 g/dL (31.0-37.0); MCV 80.6 fL (80.0-100.0); Mean Platelet Volume 7.1; Platelet Count 264 k/uL (150-450); RBC 5.06 m/uL (3.80-5.40); RDW 14.4 % (11.5-15.5); WBC 6.4 k/uL (3.8-10.6)
== END | disposition home or self-care (01) ==
LOC: LABPAT 11:48
PROVIDERS: ATTEND Internal Medicine Interventional Cardiology
DX: Z01.812 Encounter for preprocedural laboratory examination (principal); E78.00 Pure hypercholesterolemia, unspecified; R94.39 Abnormal result of other cardiovascular function study
CPT/HCPCS: 36415; 80051; 82565; 82947; 83735; 84520; 85027

== ENCOUNTER 2019-06-14 06:55 | Day surgery (SDC) | payer OTHER ==
[2019-06-12 10:08] VITALS: BMI 52.3
[~2019-06-14 06:55] MED LIST changes: +ALPRAZolam 0.25 MG TAB PO PRN; +ALPRAZolam 0.5 MG TAB PO PRN; +ASPIRIN 325 MG TAB PO STA; +ATORVASTATIN 80 MG TAB PO STA; -LACTATED RINGERS 1,000 ML IV SCH; +NITROGLYCERIN SL TABS 0.4 MG TAB SUBLINGUAL PRN; +SODIUM CHLORIDE 0.9% 1,000 ML in EMPTY BAG 1 BAG IV ONE
[2019-06-14 07:23] VITALS: RESP 16; TEMP 98.1
[2019-06-14] MEDS ORDERED: SODIUM CHLORIDE 0.9% 1,000 ML IV ONE (07:24)
[2019-06-14 07:34] LABS: Glucose,Whole Blood 125 mg/dL (75-99)
[2019-06-14] MEDS ORDERED: NITROGLYCERIN SL TABS 0.4 MG TAB SUBLINGUAL ONE (08:00)
[2019-06-14] MEDS: MIDAZOLAM (PF) 2 MG/2 ML VIAL IV ONE ×2 (08:00→08:09)
[2019-06-14] MEDS ORDERED: LIDOCAINE 1% INJ 10MG/ML (20 ML MDV) SQ ONE (08:07)
[2019-06-14] MEDS ORDERED: VERAPAMIL SYRINGE (5 MG/10 ML) INTRAARTER ONE (08:09)
[2019-06-14] MEDS ORDERED: IOPAMIDOL-370 50ML BTL INJ ONE (08:27)
[2019-06-14] MEDS ORDERED: IOPAMIDOL-370 100ML BTL INJ ONE (08:27)
[2019-06-14] MEDS ORDERED: METOPROLOL TARTRATE 25 MG TAB PO STA (08:39)
[2019-06-14] MEDS ORDERED: ALBUTEROL NEBULIZED 2.5 MG/3 ML INHALATION PRN (08:51)
[2019-06-14] MEDS ORDERED: ALBUTEROL INHALER 60 PUFF/8 GM INHALER INHALATION PRN (08:51)
[2019-06-14] MEDS ORDERED: DILTIAZEM ORAL 60 MG TAB PO SCH (09:00)
[2019-06-14] MEDS ORDERED: LOSARTAN 50 MG TAB PO SCH (09:00)
[2019-06-14] MEDS ORDERED: SODIUM CHLORIDE 0.9% 1,000 ML IV SCH (09:00)
[2019-06-14] MEDS ORDERED: MULTIVITAMINS, THERA 1 EACH TAB PO SCH (09:00)
[2019-06-14] MEDS ORDERED: NON FORMULARY DRUG (Aspirin [Adult Low Dose Aspirin Ec] 81 MG) PO SCH (09:00)
--- NOTE | 2019-06-14 09:33 | LTR ---
DATE OF SERVICE: 06/14/2019 RE: Jameson Condon Dear Dr. Kimble; Thank you for the opportunity to participate in the care of Mrs. Jameson Condon. Please find enclosed my detailed cardiac cath report for your records. This lady has significant triple-vessel disease with normal systolic function and no gradient across the aortic valve. I am recommending surgery as a first option, but if the surgeon feels the risk is high, I will consider staged intervention of LAD and RCA. I also requested Dr. UZIEL Delvalle to see the patient from a pulmonary standpoint. He sees the patient regularly in his office. Thank you for your referral and please call for questions. With kindest regards. Sincerely yours, Scarlett Delvalle MD MMELVISL / AMENA: [id number] /
--- NOTE | 2019-06-14 09:42 | CC ---
CARDIAC CATHETERIZATION REPORT DATE OF SERVICE: 06/14/2019 PROCEDURE: Left heart catheterization, coronary angiography and left ventriculography. PERFORMED BY: Dr. Scarlett Delvalle. Moderate conscious sedation time was 32 minutes. Patient was administered Versed. Oxygen saturation, hemodynamics and EKG were monitored closely. CLINICAL INFORMATION: Mrs. Jameson Condon is a 53-year-old lady with morbid obesity, hypertension, type 2 diabetes, and hyperlipidemia. She also has bronchial asthma and probably some COPD. She is not a smoker currently. She was evaluated by me in the hospital when she came with chest pain and had negative troponins. Given her risk factor profile, I recommended a stress test that was performed as an outpatient, which revealed inferior wall reversible defect. She was therefore advised cardiac catheterization. Ejection fraction on that study was about 50%. She was advised cardiac cath after due discussion regarding risks, benefits, and options. PROCEDURE NOTE: Under local anesthesia and strict aseptic precautions, a 6-Singaporean introducer was placed in the right radial artery. A JL 3.5 and JR4 catheter were used to perform coronary angiography and a pigtail catheter was used to check LV pressures and LV-gram was performed in 30 degree RIVERA projection. Patient tolerated procedure well without complications. The sheath was taken out and the saturation in the fingers of the right hand was 99%. CARDIAC CATHETERIZATION FINDINGS: The left ventricular end-diastolic pressure was 14 mmHg without any gradient across aortic valve. CORONARY ANGIOGRAPHY FINDINGS: RIGHT CORONARY ARTERY: Technically a dominant vessel, has no disease in the proximal portion. In the middle one-third, the entire vessel is diffusely diseased with multiple areas of narrowing that ranged anywhere from 60%-80%. Beyond this,. the caliber of the vessel improves and it bifurcates into PDA and PLV, both of which supply a sizable amount of myocardium. The PDA has some diffuse disease, but the PLV is free of significant disease. Technically, the dominant RCA is highly diseased with a long segment of disease in the midportion. The PDA has diffuse disease but no critical narrowing. PLV is free of significant disease. LEFT MAIN CORONARY ARTERY: This is a short patent disease-free vessel that bifurcates into LAD and circumflex. LEFT ANTERIOR DESCENDING CORONARY ARTERY: This is a good caliber vessel, extends along the anterior wall, it gives off septal and diagonal branches. The proximal one-third of the artery is heavily calcified. Very proximally at the origin of a septal branch there is a 60% narrowing after which there is a diagonal branch that comes off and this diagonal has a 90% narrowing but appears to be a graftable vessel. Beyond the origin of the diagonal branch, the mid segment of the LAD is highly diseased with moderate calcification. There is a focal area of narrowing of 80% within the diseased calcified area. The LAD therefore has a 60% proximal lesion, 80% mid lesion with significant calcification in the diagonal branch, also has 80% lesion, but appears to be graftable. Both LAD and diagonal are graftable vessels. LEFT POSTERIOR CIRCUMFLEX CORONARY ARTERY: Technically nondominant vessel, gives off a single obtuse marginal that runs laterally. There is a groove branch which is diffusely diseased and gives off a posterolateral branch. The entire groove branch has diffuse disease in the range of 70%-80% throughout with somewhat sluggish flow. Obtuse marginal, however, free of significant disease. LEFT VENTRICULOGRAM: This was performed in 30 degree RIVERA projection. The left ventricle is of normal size with good systolic function. Ejection fraction in the range of 60%. There was no significant mitral regurgitation noted. There was some ectopy detracting the quality of the LV gram. However, ejection fraction 60%. No evidence of any significant mitral regurgitation. FINAL IMPRESSION: This patient has triple-vessel disease with a significant disease in the mid segment of the dominant RCA anywhere from 60%-80%. The LAD in the proximal and midportion has 60%- 80% lesions in a calcified segment. The groove branch of circumflex is diffusely diseased. The diagonal branch of LAD also has significant disease. Filling pressures are acceptable. There was no gradient across aortic valve. Ejection fraction is 60% without significant mitral regurgitation. RECOMMENDATION: Given the fact patient has triple-vessel disease and she is a woman with type 2 diabetes, I am recommending aortocoronary bypass surgery and will request an opinion from Dr. Sammy Montanez. I will also seek a full pulmonary evaluation from Dr. UZIEL Delvalle, who sees the patient in the outpatient setting. She will have a full pulmonary evaluation as well as Cardiac surgery evaluation and if the surgeon feels she is a high risk for surgery, I can perform staged PCI of both RCA and LAD. I discussed this in detail with the patient and family and I expect she will be discharged today. I will increase the Lipitor, add a small dose of beta gregorio and increase losartan. Prognosis remains guarded. MMODL / IJN: [id number] /
[2019-06-14] MEDS ORDERED: MD COMMUNICATION TO PHARMACY 1 EACH MISC PO ONE (09:50)
--- NOTE | 2019-06-14 10:47 | P.GSCN ---
<Nicole Mendoza - Last Filed: 06/14/19 10:24> History of Present Illness Consult date: 06/14/19 Reason for Consult: Severe calcified triple vessel coronary artery disease, surgical recommendations Requesting physician: Russell Delvalle History of present illness: This is a 53-year-old female who follows on an outpatient basis with Dr. Cher Kimble and Dr. UZIEL Delvalle. She has a previous medical history of hypertension, hyperlipidemia, uncontrolled insulin-dependent diabetes with hyperglycemia with hemoglobin A1c in December 2018 of 11.5%, asthma, obstructive sleep apnea with home CPAP use, remote history of pneumonia, morbid obesity, and significant family history of diabetes and hypertension. She had presented to [facility] emergency room at the end of March 2019 with complaints of significant shortness of breath and mild chest pain along with lower extremity edema. She was admitted for acute exacerbation of her asthma, EKG and troponins were benign, and she was recommended to follow up outpatient for stress testing. She did have a stress test by Dr. Delvalle which was abnormal and she was recommended to undergo heart catheterization which was completed today. The catheterization revealed severe triple vessel calcified coronary artery disease with proximal LAD 60% stenosis, mid LAD 80% stenosis, diagonal branch with 80% stenosis, a groove branch of the circumflex with 70-80% stenosis, and right coronary artery with diffuse disease ranging from 60-80%. LV gram was also completed demonstrating normal LV function with an EF 60%, no gradient across the aortic valve, and no mitral regurgitation. Of note the patient did have a transthoracic echocardiogram in February of this year demonstrating normal LV function with EF 60-65% and no valvular abnormalities. Due to the patient's significant coronary artery disease and history of diabetes Dr. Montanez from cardiothoracic surgery was consulted for surgical revascularization recommendations. Review of Systems Review of systems was completed and was negative except as noted - Cardiovascular Reports as per HPI, Reports decreased exercise tolerance, Reports dyspnea on exertion, Reports edema, Reports shortness of breath - Respiratory Reports as per HPI, Reports dyspnea Past Medical History Past Medical History: Asthma, Coronary Artery Disease (CAD), Diabetes Mellitus, Eye Disorder, Hyperlipidemia, Hypertension, Sleep Apnea/CPAP/BIPAP Additional Past Medical History / Comment(s): retinopathy,GLAUCOMA, chronic pain, BLOOD CLOT 30 YEARS AGO R/T TO PICC LINE MISPLACEMENT, History of Any Multi-Drug Resistant Organisms: None Reported Past Surgical History: No Surgical Hx Reported Additional Past Surgical History / Comment(s): PICC LINE PLACEMENT R/T HYPEREMESIS DURING Past Anesthesia/Blood Transfusion Reactions: No Reported Reaction Additional Past Anesthesia/Blood Transfusion Reaction / Comm: no anesthesia Past Psychological History: No Psychological Hx Reported Smoking Status: Never smoker Past Alcohol Use History: None Reported Past Drug Use History: None Reported - Past Family History Father Family Medical History: Cancer Additional Family Medical History / Comment(s): Colon CA Mother Family Medical History: Diabetes Mellitus, Hypertension Brother(s) Family Medical History: Diabetes Mellitus Medications and Allergies Home Medications Medication Instructions Recorded Confirmed Type Insulin Glargine,Hum.rec.anlog 52 unit SQ HS 07/26/18 06/14/19 History [Basaglar Kwikpen U-100] Mometasone/Formoterol [Dulera 100 2 puff INHALATION RT-BID 07/26/18 06/14/19 History Mcg/5 Mcg Inhaler] Multivitamins, Thera [Multivitamin 1 tab PO DAILY 07/26/18 06/14/19 History (formulary)] Montelukast Sodium [Singulair] 10 mg PO HS 12/18/18 06/14/19 History Albuterol Inhaler [Ventolin Hfa 1 - 2 puff INHALATION RT-Q6H PRN 12/20/18 06/14/19 Rx Inhaler] #1 inhaler Albuterol Nebulized [Ventolin 2.5 mg INHALATION RT-Q4H PRN 03/31/19 06/14/19 History Nebulized] Insulin Lispro [Admelog] 24 unit SQ AC-TID 03/31/19 06/14/19 History Aspirin [Adult Low Dose Aspirin EC] 81 mg PO DAILY 06/12/19 06/14/19 History Atorvastatin [Lipitor] 20 mg PO DAILY 06/12/19 06/14/19 History Diltiazem HCl 60 mg PO TID 06/12/19 06/14/19 History Latanoprost/Pf [Latanoprost 0.005% 1 drop BOTH EYES HS 06/12/19 06/14/19 History Eye Drop] Losartan Potassium [Cozaar] 25 mg PO DAILY 06/12/19 06/14/19 History Allergies Allergy/AdvReac Type Severity Reaction Status Date / Time mold AdvReac Itching Verified 06/12/19 09:49 dust Allergy Mild Itching Uncoded 06/12/19 09:49 Surgical - Exam Vital Signs Temp Pulse Resp BP Pulse Ox 98.1 F 93 16 122/63 98 06/14/19 07:18 06/14/19 07:18 06/14/19 07:18 06/14/19 07:18 06/14/19 07:18 - General well developed, well nourished, no distress, no pain, obese - Eyes normal ocular movement - ENT no hearing loss - Neck no masses, no bruits, trachea midline - Respiratory Lungs sounds clear but diminished bilaterally. Respirations even, nonlabored. Currently on room air with oxygen saturation 98%. No chest wall deformities. No clubbing or cyanosis present. - Cardiovascular S1, S2 present. Regular rate and rhythm, sinus rhythm on telemetry. Palpable peripheral pulses bilaterally. 2+ lower bilateral lower extremity edema present. No calf pain or tenderness noted. Right radial heart catheterization site without edema, T band present. - Abdomen Abdomen: soft, non tender, bowel sounds - Genitourinary Deferred - Rectum Deferred - Integumentary no rash, no growths - Neurologic normal coordination, normal sensation - Musculoskeletal normal posture - Psychiatric oriented to time, oriented to person, oriented to place, speech is normal, memory intact Results - Labs Abnormal Lab Results - Last 24 Hours (Table) 06/14/19 Range/Units 07:14 POC Glucose (mg/dL) 125 H (75-99) mg/dL - Imaging Additional studies: Heart catheterization films reviewed with Dr. Montanez Assessment and Plan Assessment: 1. Severe calcified triple-vessel coronary artery disease 2. Hypertension 3. Hyperlipidemia 4. Uncontrolled insulin-dependent diabetes with hyperglycemia, last hemoglobin A1c December 2018 11.5% 5. Asthma 6. Obstructive sleep apnea with home CPAP use 7. Morbid obesity 8. Remote history of pneumonia 9. Family history of diabetes and hypertension Plan: The patient was seen and examined in the extended stay area with Dr. Montanez. Her heart catheterization films were reviewed in detail. We offered the patient coronary artery bypass graft surgery, the usual perioperative course was discussed in detail with the patient and her daughters, all risks and benefits were explained, all questions were answered, and the patient did consent to surgery. We initiated preoperative testing to risk stratify the patient. Dr. UZIEL Delvalle was consulted for pulmonology recommendations as the patient is well- known to him. We recommend continuing aspirin, statin, Cozaar, beta gregorio started by cardiology. Patient was counseled that she needs her blood sugar under better control in order to promote healing and avoid infection. Our plan is for off-pump coronary artery bypass graft surgery utilizing the left internal mammary artery, left radial artery, and endoscopic vein harvesting next week or early the following week, depending on when we can obtain insurance a uthorization. This was discussed with the patient and her daughters and they are in agreement. We will discuss with Dr. Delvalle. Once all preoperative testing has been completed an STS risk score will be calculated and discussed with the patient. 5 m walk test will be completed. The patient may be discharged to home once all testing has been completed. We will call to inform her of the surgery date as soon as we have one. Our contact information was given to the patient. More recommendations to follow. Thank you Dr. Delvalle for this consult. We look forward to working with you in the care of your patient. Time with Patient: Greater than 30 <Sammy Montanez R - Last Filed: 06/14/19 11:26> Surgical - Exam Vital Signs Temp Pulse Resp BP Pulse Ox 98.1 F 93 16 122/63 98 06/14/19 07:18 06/14/19 07:18 06/14/19 07:18 06/14/19 07:18 06/14/19 07:18 Results - Labs 06/14/19 10:26 06/14/19 10:26 Abnormal Lab Results - Last 24 Hours (Table) 06/14/19 06/14/19 06/14/19 Range/Units 07:14 10:26 10:26 MCV 78.9 L (80.0-100.0) fL Creatinine 0.46 L (0.52-1.04) mg/dL Glucose 167 H (74-99) mg/dL POC Glucose (mg/dL) 125 H (75-99) mg/dL Alkaline Phosphatase 151 H (38-126) U/L Albumin 3.3 L (3.5-5.0) g/dL LDL Cholesterol, Calc 112 H (0-99) mg/dL Diabetes panel 06/14/19 Range/Units 10:26 Sodium 138 (137-145) mmol/L Potassium 4.2 (3.5-5.1) mmol/L Chloride 106 (98-107) mmol/L Carbon Dioxide 25 (22-30) mmol/L BUN 8 (7-17) mg/dL Creatinine 0.46 L (0.52-1.04) mg/dL Glucose 167 H (74-99) mg/dL Calcium 8.9 (8.4-10.2) mg/dL AST 15 (14-36) U/L ALT 13 (9-52) U/L Alkaline Phosphatase 151 H (38-126) U/L Total Protein 6.6 (6.3-8.2) g/dL Albumin 3.3 L (3.5-5.0) g/dL Triglycerides 91 (<150) mg/dL HDL Cholesterol 42 (40-60) mg/dL Calcium panel 06/14/19 Range/Units 10:26 Calcium 8.9 (8.4-10.2) mg/dL Albumin 3.3 L (3.5-5.0) g/dL Pituitary panel 06/14/19 Range/Units 10:26 Sodium 138 (137-145) mmol/L Potassium 4.2 (3.5-5.1) mmol/L Chloride 106 (98-107) mmol/L Carbon Dioxide 25 (22-30) mmol/L BUN 8 (7-17) mg/dL Creatinine 0.46 L (0.52-1.04) mg/dL Glucose 167 H (74-99) mg/dL Calcium 8.9 (8.4-10.2) mg/dL Adrenal panel 06/14/19 Range/Units 10:26 Sodium 138 (137-145) mmol/L Potassium 4.2 (3.5-5.1) mmol/L Chloride 106 (98-107) mmol/L Carbon Dioxide 25 (22-30) mmol/L BUN 8 (7-17) mg/dL Creatinine 0.46 L (0.52-1.04) mg/dL Glucose 167 H (74-99) mg/dL Calcium 8.9 (8.4-10.2) mg/dL Total Bilirubin 0.3 (0.2-1.3) mg/dL AST 15 (14-36) U/L ALT 13 (9-52) U/L Alkaline Phosphatase 151 H (38-126) U/L Total Protein 6.6 (6.3-8.2) g/dL Albumin 3.3 L (3.5-5.0) g/dL Assessment and Plan Assessment: Patient was seen and examined by me. Cath films were reviewed and discussed wit thierry Delvalle. Patient was discussed in length with nurse practitioner. Agree with noted above as written. Severe three-vessel coronary artery disease in young obese insulin-dependent diabetic. Left ventricular function is well-preserved. Anginal symptoms are primarily shortness of breath and are stable. Plan is for elective CABG in 1-2 weeks. We'll need to obtain authorization from her insurance company.
[2019-06-14 10:52] LABS: Basophils # (A) 0.1 k/uL (0-0.2); Basophils % (A) 1 %; Eosinophils # (A) 0.6 k/uL (0-0.7); Eosinophils % (A) 10 %; HCT 39.6 % (34.0-46.0); HGB 12.8 gm/dL (11.4-16.0); Lymphocytes # (A) 1.9 k/uL (1.0-4.8); Lymphocytes % (A) 32 %; MCH 25.5 pg (25.0-35.0); MCHC 32.3 g/dL (31.0-37.0); MCV 78.9 fL (80.0-100.0); Mean Platelet Volume 6.7; Monocytes # (A) 0.3 k/uL (0-1.0); Monocytes % (A) 5 %; Neutrophils # (A) 3.1 k/uL (1.3-7.7); Neutrophils % (A) 51 %; Platelet Count 256 k/uL (150-450); RBC 5.03 m/uL (3.80-5.40); RDW 13.2 % (11.5-15.5); WBC 6.1 k/uL (3.8-10.6)
[2019-06-14 11:09] LABS: INR 0.9 (<1.2); Partial Thromboplastin Time 25.5 sec (22.0-30.0); Prothrombin Time 9.6 sec (9.0-12.0)
[2019-06-14 11:11] LABS: ALT 13 U/L (9-52); AST 15 U/L (14-36); African American GFR (CKD) >90 (>60 ml/min/1.73 sqM); Albumin 3.3 g/dL (3.5-5.0); Alkaline Phosphatase 151 U/L (38-126); Anion Gap 7 mmol/L; Blood Urea Nitrogen 8 mg/dL (7-17); Calcium 8.9 mg/dL (8.4-10.2); Carbon Dioxide 25 mmol/L (22-30); Chloride 106 mmol/L (98-107); Cholesterol 172 mg/dL (<200); Glucose 167 mg/dL (74-99); HDL Cholesterol 42 mg/dL (40-60); LDL Cholesterol,Calculated 112 mg/dL (0-99); Magnesium 1.7 mg/dL (1.6-2.3); Potassium 4.2 mmol/L (3.5-5.1); Sodium 138 mmol/L (137-145); Total Bilirubin 0.3 mg/dL (0.2-1.3); Total Protein 6.6 g/dL (6.3-8.2); Triglycerides 91 mg/dL (<150)
[2019-06-14] MEDS ORDERED: INSULIN LISPRO (For Pump) 100 UNIT/ML VIAL SQ-PUMP SCH (12:30)
[2019-06-14 13:10] LABS: Appearance,Urine Clear (Clear); Bacteria,Urine Rare /hpf; Bilirubin,Urine Negative (Negative); Blood,Urine Negative (Negative); Budding Yeast,Urine Rare /hpf; Color,Urine Yellow; Glucose,Urine (UA) Negative (Negative); Ketones,Urine Negative (Negative); Leukocyte Esterase,Urine Small (Negative); Mucus,Urine Rare /hpf; Nitrite,Urine Negative (Negative); Protein,Urine Negative (Negative); RBC,Urine 4 /hpf (0-5); Squamous Epithelial Cell,Urine 4 /hpf (0-4); WBC,Urine 2 /hpf (0-5)
[2019-06-14 13:12] LABS: Specific Gravity,Urine >1.050 (1.001-1.035)
--- NOTE | 2019-06-14 13:56 | US ---
EXAMINATION TYPE: US carotid duplex BILAT DATE OF EXAM: 06/14/2019 COMPARISON: CLINICAL HISTORY: Coronary disease. Rule out carotid stenosis,preop clearance for CABG. Precabg EXAM MEASUREMENTS: RIGHT: Peak Systolic Velocity (PSV) cm/sec ----- Right CCA: 58.1 ----- Right ICA: 70.3 ----- Right ECA: 72.1 ICA/CCA ratio: 1.2 RIGHT: End Diastole cm/sec ----- Right CCA: 9.8 ----- Right ICA: 28.4 ----- Right ECA: 12.8 LEFT: Peak Systolic Velocity (PSV) cm/sec ----- Left CCA: 51.1 ----- Left ICA: 50.5 ----- Left ECA: 76.2 ICA/CCA ratio: 1.0 LEFT: End Diastole cm/sec ----- Left CCA: 11.9 ----- Left ICA: 21.9 ----- Left ECA: 0.0 VERTEBRALS (direction of flow): Right Vertebral: Antegrade Left Vertebral: Antegrade Rhythm: Normal No plaque or significant stenosis. No elevated velocities. Bilateral wall thickening. Grayscale, color Doppler, spectral Doppler imaging performed of the carotid arteries. Waveform analysis does not show significant stenosis of the proximal internal carotid arteries. IMPRESSION: No hemodynamic significant stenosis of the proximal internal carotid arteries by Doppler criteria, an indirect measurement of carotid stenosis
[2019-06-14 16:04] VITALS: BP 127/67; PULSE 81
[2019-06-14] MEDS ORDERED: FORMOTEROL INHALATION SCH (20:00)
[2019-06-14] MEDS ORDERED: MOMETASONE INHALATION SCH (20:00)
[2019-06-14 20:18] LABS: Hemoglobin A1C 12.4 % (4.0-6.0)
[2019-06-14] MEDS ORDERED: INSULIN GLARGINE HUM REC ANLOG 52 UNIT SQ SCH (21:00)
[2019-06-14] MEDS ORDERED: ATORVASTATIN 80 MG TAB PO SCH (21:00)
[2019-06-14] MEDS ORDERED: MONTELUKAST 10 MG TAB PO SCH (21:00)
[2019-06-14] MEDS ORDERED: METOPROLOL TARTRATE 25 MG TAB PO SCH (21:00)
[2019-06-14] MEDS ORDERED: NON FORMULARY DRUG (Latanoprost/Pf [Latanoprost 0.005% Eye Drop] 1 DROP) BOTH EYES SCH (21:00)
--- NOTE | 2019-06-14 21:12 | CONS ---
CONSULTATION She underwent a cardiac cath today. Jameson Condon is a 53-year-old female, well known to me with a history of severe asthma who came in for an elective cardiac catheterization as she had a positive stress test and underwent cardiac catheterization. The cardiac catheterization showed evidence of triple-vessel disease. She is being considered for coronary artery bypass. She has a known history of severe asthma and COPD. Her post-bronchodilator FEV1 in January of 2019 was 1.26 L, that is 53% of predicted. She denies any recent fever, chills or rigors. PAST MEDICAL HISTORY: Positive for severe asthma due to allergic etiology, history of diabetes mellitus type 2, history of hyperlipidemia, hypertension, coronary artery disease. FAMILY HISTORY: Positive for cancer in her father. Her daughter suffers from ABPA and severe asthma. SOCIAL HISTORY: Patient is a never smoker. Does not drink alcohol excessively. MEDICATIONS: Prior to admission: nitroglycerin, multivitamin, montelukast, Dulera, Lopressor, Cozaar, latanoprost, Admalog, insulin glargine, Lipitor, aspirin, Ventolin, she does have a CPAP that she uses diligently as well. PHYSICAL EXAMINATION: Her vital signs were reviewed and were stable. HEENT reveals pupils that were equal. Redundant tissue in the posterior pharynx. Chest revealed decreased breath sounds. Prolonged exhalation but no expiratory wheeze today. Cardiovascular system with an S1, S2. Abdomen is soft. There is trace pedal edema. LABS: Reviewed and shows evidence of white count of 6.1, hemoglobin of 12.8, platelet count 256,000. IMPRESSION: At this time: 1. Coronary artery disease for which she is being considered for coronary artery bypass graft. 2. Severe asthma with some prominent airway remodeling resulting in a low baseline FEV1 of 53% of predicted. 3. Diabetes mellitus. 4. Obesity. 5. Obstructive sleep apnea. From a pulmonary standpoint, the patient is at a relatively high risk for coronary artery bypass surgery. However, it is not absolutely contraindicated. In the perioperative, she will likely require systemic steroids to help stabilize from a pulmonary perspective. Would continue montelukast, bronchodilators, aerosolized steroids. Continue CPAP for now and she has been introduced to the concept of using the incentive spirometer. I would like to thank you for allowing me to participate in her care and would be happy to see her in the perioperative period if need be. MMODL / IJN: [id number] /
--- NOTE | 2019-06-20 15:14 | P.VSCSTY ---
Greater Saphenous Vein Mapping This is bilateral lower extremity greater saphenous vein mapping. Date of service: 06/14/2019 Vein quality and ultrasound appearance: No endoluminal thrombus or wall changes are seen. Vein size groin right : 8.6 x 5.8 groin left: 8.4 x 6.8 High thigh right: 4.6 x 3.9 high thigh left: 3.5 x 3.0 Mid thigh right: 3.8 x 3.2 mid thigh left: 4.8 x 3.7 Above-knee right: 3.7 x 3.5 above- knee left: 2.8 x 2.7 Below knee right: 2.6 x 2.8 below-knee left: 2.6 x 2.6 Mid calf right: 2.5 x 2.2 mid calf left: 2.6 x 2.6 Ankle right: 2.5 x 1.8 ankle left: 2.7 x 2.6 Impression: Usable bilateral greater saphenous vein. Gets a bit small at the right ankle..
== END 2019-06-14 17:00 | disposition home or self-care (01) ==
LOC: CATHCVL 06:55
PROVIDERS: ATTEND Internal Medicine Interventional Cardiology
DX: I25.110 Atherosclerotic heart disease of native coronary artery with unstable angina pectoris (principal); I10 Essential (primary) hypertension; J45.901 Unspecified asthma with (acute) exacerbation; G89.29 Other chronic pain; E66.01 Morbid (severe) obesity due to excess calories; E78.00 Pure hypercholesterolemia, unspecified; E78.5 Hyperlipidemia, unspecified; E11.65 Type 2 diabetes mellitus with hyperglycemia; G47.33 Obstructive sleep apnea (adult) (pediatric); H40.9 Unspecified glaucoma; E11.319 Type 2 diabetes mellitus with unspecified diabetic retinopathy without macular edema; Z87.01 Personal history of pneumonia (recurrent); Z95.1 Presence of aortocoronary bypass graft; Z79.4 Long term (current) use of insulin; Z79.51 Long term (current) use of inhaled steroids; Z79.82 Long term (current) use of aspirin; Z79.899 Other long term (current) drug therapy; Z91.09 Other allergy status, other than to drugs and biological substances; Z99.89 Dependence on other enabling machines and devices; Z82.49 Family history of ischemic heart disease and other diseases of the circulatory system; Z83.3 Family history of diabetes mellitus; Z80.0 Family history of malignant neoplasm of digestive organs; Z68.43 Body mass index [BMI] 50.0-59.9, adult
CPT/HCPCS: 94150; 93005; 93458; 86900; 86901; 80061; 80053; 80074; 84443; 83735; 85025; 85610; 85730; 86850; 86920; 81001; 87070; 83036; 93970; 93880; C1769; C1894; J2001; J1644; Q9967 ×2; J2250

== ENCOUNTER → 2019-06-20 | Outpatient (CLI) | payer OTHER | END | disposition home or self-care (01) | LOC: LABPAT 11:29 | PROVIDERS: ATTEND Thoracic Surgery (Cardiothoracic Vascular Surgery) | DX: Z01.812 Encounter for preprocedural laboratory examination (principal) | CPT/HCPCS: 87086 ==

== ENCOUNTER 2019-06-22 06:12 | Inpatient (IN) | payer OTHER ==
[2019-06-14 18:00] LABS: Hepatitis A Antibody IgM Non-Reactive (Non-Reactive); Hepatitis B Core IgM Non-Reactive (Non-Reactive); Hepatitis B Surface Antigen Non-Reactive (Non-Reactive); Hepatitis C IgG Antibody Non-Reactive (Non-Reactive)
[~2019-06-22 06:12] MED LIST changes: +ALBUMIN HUMAN 25% 50 ML IV ONE; +ALBUMIN HUMAN 5% 500 ML IVPB ONE; -ALPRAZolam 0.25 MG TAB PO PRN; -ALPRAZolam 0.5 MG TAB PO PRN; +ASPIRIN 325 MG TAB PO ONE; -ASPIRIN 325 MG TAB PO STA; +ATORVASTATIN 10 MG TAB PO ONE; -ATORVASTATIN 80 MG TAB PO STA; +CALCIUM CHLORIDE 100 MG/ML 10 ML SYRINGE IV ONE; +CARDIOPLEGIC SOLN (K+ 16 MEQ/L 1,000 ML with SODIUM BICARB (1 MEQ/ML) 20 ML, LIDOCAINE ... PERFUSION ONE; +CHLORHEXIDINE GLUCONATE 15 ML CUP MUCOUS MEM ONE; +CLEVIDIPINE BUTYRATE 25 MG in EMPTY BAG 1 BAG IV ONE; +DILTIAZEM 125 MG in SODIUM CHLORIDE 0.9% 100 ML IV ONE; +HEPARIN SODIUM 1,000 UN/ML (10ML VL) IV ONE; +HEPARIN SODIUM,PORCINE 5,000 UNIT in SODIUM CHLORIDE 0.9% 500 ML 500 ML IV ONE; +INSULIN REGULAR 100 UNIT in SODIUM CHLORIDE 0.9% 100 ML IV ONE; +LACTATED RINGERS 1,000 ML IV ONE; +LACTATED RINGERS 1,000 ML IV SCH; +MAGNESIUM SULFATE MG 500 MG/ML IV ONE; +MANNITOL 25% 12.5 GM/50 ML VIAL IV ONE; +METOPROLOL TARTRATE 12.5 MG TAB PO ONE; +MIDAZOLAM 2 MG/2 ML VIAL IV PRN; -NITROGLYCERIN SL TABS 0.4 MG TAB SUBLINGUAL PRN; +NITROGLYCERIN-D5W PMX 25 MG/250 ML BTL IV ONE; +NITROGLYCERIN-D5W PMX 50 MG in DEXTROSE/WATER 1 250ML.BAG IV ONE; +NOREPINEPHRINE 4 MG in SODIUM CHLORIDE 0.9% 250 ML IV ONE; +PAPAVERINE 360 MG in SODIUM CHLORIDE 0.9% 90 ML IV ONE; +PHENYLEPHRINE 10 MG/ML VIAL IV ONE; +PHENYLEPHRINE 40 MG in SODIUM CHLORIDE 0.9% 250 ML IV ONE; +PROPOFOL 1,000 MG/100 ML VIAL IV ONE; +PROTAMINE SULFATE 10 MG/ML 25 ML VIAL IV ONE; +PROTAMINE SULFATE 250 MG in EMPTY BAG 1 BAG IV ONE; +SODIUM BICARB 8.4% 50 ML SYR (1 MEQ/ML) IV ONE; +SODIUM CHLORIDE 0.9% 1,000 ML IV ONE; -SODIUM CHLORIDE 0.9% 1,000 ML in EMPTY BAG 1 BAG IV ONE; +TRANEXAMIC ACID 2,000 MG in SODIUM CHLORIDE 0.9% 80 ML IV ONE; +ceFAZolin 1,000 MG in SODIUM CHLORIDE 0.9% IRRIGATIO 1,000 ML IRRIGATION ONE; +ceFAZolin 2,000 MG in SODIUM CHLORIDE 0.9% 30 ML IVPB ONE; +ceFAZolin 3 GM in SODIUM CHLORIDE 0.9% 30 ML IVPB ONE
[2019-06-22] MEDS ORDERED: INSULIN REGULAR 100 UNIT/ML VIAL IV ONE (06:55)
[2019-06-22 07:02] LABS: Glucose,Whole Blood 213 mg/dL (75-99)
[2019-06-22] MEDS ORDERED: SODIUM CHLORIDE 0.9% 1,000 ML IV ONE (07:10)
[2019-06-22] MEDS ORDERED: PROTAMINE SULFATE 10 MG/ML 5 ML VIAL IV ONE (07:31)
[2019-06-22] MEDS ORDERED: ceFAZolin 1,000 MG VIAL ONE (07:31)
[2019-06-22] MEDS ORDERED: fentaNYL (PF) 50 MCG/ML 50 ML VIAL ONE (07:31)
[2019-06-22] MEDS ORDERED: ALBUMIN HUMAN 5% (25gm) 500 ML VIAL IVPB ONE (07:31)
[2019-06-22] MEDS ORDERED: SODIUM CHLORIDE 0.9% 100 ML BAG ONE (07:31)
[2019-06-22] MEDS ORDERED: PROPOFOL 10 MG/ML 20 ML VIAL IV ONE (07:31)
[2019-06-22] MEDS ORDERED: PHENYLEPHRINE-0.9% NACL SYG 1 MG/10 ML SYRINGE ONE (07:31)
[2019-06-22] MEDS ORDERED: INSULIN REGULAR 100 UNIT/ML VIAL ONE (07:31)
[2019-06-22] MEDS ORDERED: SODIUM CHLORIDE 0.9% IRRIG 1,000 ML BTL IRRIGATION ONE (07:31)
[2019-06-22] MEDS ORDERED: MAGNESIUM SULFATE 4 MEQ/ML 10ML VIAL ONE (07:31)
[2019-06-22] MEDS ORDERED: MIDAZOLAM 2 MG/2 ML VIAL ONE (07:31)
[2019-06-22] MEDS ORDERED: HEPARIN SODIUM,PORCINE 10,000 UNIT/ML 1 ML VIAL ONE (07:31)
[2019-06-22] MEDS ORDERED: fentaNYL (PF) 50 MCG/ML 2 ML AMP ONE (07:31)
[2019-06-22] MEDS ORDERED: WATER FOR INJECTION, STERILE 10 ML VIAL IV ONE (07:31)
[2019-06-22] MEDS ORDERED: VECURONIUM 10 MG VIAL IV ONE (07:31)
[2019-06-22 08:36] LABS: ABG Base Excess 1.4 mmol/L; ABG Glucose Whole Blood 199 mg/dL (75-99); ABG HCO3 26 mmol/L (21-25); ABG Hematocrit 36 % (34.0-46.0); ABG Ionized Calcium 4.6 mg/dL (4.5-5.3); ABG Lactic Acid Whole Blood 0.9 mmol/L (0.5-1.6); ABG PCO2 41 mmHg (35-45); ABG PH 7.41 (7.35-7.45); ABG Potassium Whole Blood 3.8 mmol/L (3.4-4.5); ABG Sodium Whole Blood 139 mmol/L (135-146); ABG TCO2 28 mmol/L (19-24)
--- NOTE | 2019-06-22 09:17 | P.ANPRN ---
Procedure Note - Anesthesia - Invasive Line Right Arterial Line Time Out Performed: Yes Date of Procedure: 06/22/19 Time of Procedure: 07:20 Location of Patient Procedure: PACU Preparation: Sterile Prep, Sterile Dressing Arterial Line Location: Radial Ultrasound Used: Yes Purpose - Visualization and Identification of Vasculature: Yes Needle Guage: 20 Image Stored and Saved: Yes Narrative: Right radial placed under u/s guidance Right Central Line Time Out Performed: Yes Date of Procedure: 06/22/19 Time of Procedure: 07:40 Location of Patient Procedure: PACU Preparation: Sterile Prep, Sterile Dressing Ultrasound Used: Yes Purpose - Visualization and Identification of Vasculature: Yes Needle Guage: 18 Image Stored and Saved: Yes Narrative: Central line placement per sterile protocol utilized. Right [facility] Time Out Performed: Yes Date of Procedure: 06/22/19 Time of Procedure: 07:50 Location of Patient Procedure: PACU Preparation: Sterile Prep, Sterile Dressing Ultrasound Used: No Purpose - Visualization and Identification of Vasculature: No Image Stored and Saved: No Narrative: All ports flushed and balloon tested. Catheter advanced to 20 cm. Balloon inflated and catheter advanced until RV and then PA waveforms obtained (@38 cm). Catheter secured in place at 40 cm and balloon deflated
[2019-06-22 09:28] LABS: ABG Base Excess 1.6 mmol/L; ABG Glucose Whole Blood 158 mg/dL (75-99); ABG HCO3 26 mmol/L (21-25); ABG Hematocrit 34 % (34.0-46.0); ABG Ionized Calcium 4.6 mg/dL (4.5-5.3); ABG Lactic Acid Whole Blood 1.2 mmol/L (0.5-1.6); ABG Oxygen Saturation 99.8 % (94-97); ABG PCO2 41 mmHg (35-45); ABG PH 7.42 (7.35-7.45); ABG PO2 184 mmHg (83-108); ABG Potassium Whole Blood 3.5 mmol/L (3.4-4.5); ABG Sodium Whole Blood 139 mmol/L (135-146); ABG TCO2 28 mmol/L (19-24)
[2019-06-22] MEDS ORDERED: ceFAZolin 1,000 MG in SODIUM CHLORIDE 0.9% 1,000 ML IRRIGATION ONE (09:43)
[2019-06-22] MEDS ORDERED: PAPAVERINE 360 MG in SODIUM CHLORIDE 0.9% 90 ML IV ONE (09:43)
[2019-06-22] MEDS ORDERED: SODIUM CHLORIDE 0.9% 500 ML 500 ML with HEPARIN SODIUM,PORCINE 5,000 UNIT IV ONE ×2 (09:43)
[2019-06-22 10:43] LABS: ABG Base Excess 1.1 mmol/L; ABG Glucose Whole Blood 125 mg/dL (75-99); ABG HCO3 26 mmol/L (21-25); ABG Hematocrit 33 % (34.0-46.0); ABG Ionized Calcium 4.5 mg/dL (4.5-5.3); ABG Lactic Acid Whole Blood 0.8 mmol/L (0.5-1.6); ABG Oxygen Saturation 99.1 % (94-97); ABG PCO2 40 mmHg (35-45); ABG PH 7.42 (7.35-7.45); ABG PO2 131 mmHg (83-108); ABG Potassium Whole Blood 3.7 mmol/L (3.4-4.5); ABG Sodium Whole Blood 139 mmol/L (135-146); ABG TCO2 27 mmol/L (19-24)
[2019-06-22 11:44] LABS: ABG Base Excess 0.6 mmol/L; ABG Glucose Whole Blood 113 mg/dL (75-99); ABG HCO3 25 mmol/L (21-25); ABG Hematocrit 32 % (34.0-46.0); ABG Ionized Calcium 4.4 mg/dL (4.5-5.3); ABG Lactic Acid Whole Blood 1.3 mmol/L (0.5-1.6); ABG Oxygen Saturation 99.5 % (94-97); ABG PCO2 38 mmHg (35-45); ABG PH 7.43 (7.35-7.45); ABG PO2 146 mmHg (83-108); ABG Potassium Whole Blood 3.6 mmol/L (3.4-4.5); ABG Sodium Whole Blood 138 mmol/L (135-146); ABG TCO2 26 mmol/L (19-24)
[2019-06-22 12:47] LABS: ABG Base Excess -1.2 mmol/L; ABG Glucose Whole Blood 131 mg/dL (75-99); ABG HCO3 24 mmol/L (21-25); ABG Hematocrit 31 % (34.0-46.0); ABG Ionized Calcium 5.1 mg/dL (4.5-5.3); ABG Lactic Acid Whole Blood 0.7 mmol/L (0.5-1.6); ABG Oxygen Saturation 98.9 % (94-97); ABG PCO2 42 mmHg (35-45); ABG PH 7.37 (7.35-7.45); ABG PO2 131 mmHg (83-108); ABG Potassium Whole Blood 4.2 mmol/L (3.4-4.5); ABG Sodium Whole Blood 138 mmol/L (135-146); ABG TCO2 25 mmol/L (19-24)
[2019-06-22 13:10] LABS: ABG PO2 >420 mmHg (83-108)
--- NOTE | 2019-06-22 13:37 | P.OP ---
Date of Procedure: 06/22/19 Preoperative Diagnosis: Coronary arteriosclerosis Postoperative Diagnosis: Same Procedure(s) Performed: Off-pump CABG 4 with sequential HERNDON to diagonal and LAD, left radial artery to OM, SVG to PDA with endovascular harvest of left radial artery and saphenous vein and clipping of the left atrial appendage with a 35 mm AtriCure clip Implants: 35mm AtriCure clip Anesthesia: AGNES Surgeon: Sammy Montanez Elastic Yarn Twister Helper #1: Monico Rizo Estimated Blood Loss (ml): 500 IV fluids (ml): 2,000 Urine output (ml): 500 Pathology: none sent Condition: stable Disposition: ICU Indications for Procedure: 53-year-old female with recent fatigue and dyspnea found to have severe three- vessel coronary artery disease. She has poorly controlled insulin-dependent diabetes due to noncompliance with therapy and is morbidly obese. Elective CABG was scheduled. Operative Findings: Diffuse three-vessel coronary artery disease. Good conduits. Good ventricular function. Patient had 2 episodes of intraoperative atrial fibrillation requiring cardioversion and a 35 mm AtriCure was applied to the left atrial appendage. Description of Procedure: The patient was brought to the operating room, placed supine on the operating table, anesthetized and intubated. Monitoring lines and placed in preoperative holding. GEN Argueta catheter were placed. The patient was appropriately positioned from cardiopulmonary bypass. The left arm anterior chest and abdomen and bilateral lower extremities were sterilely prepped and draped in standard fashion. Left radial harvest was performed using endovascular vein harvest technique. Greater saphenous vein was harvested from the midcalf to the groin on the left side using endovascular vein harvest technique. Sternotomy was performed a left hemisternum retracted upwards and the left internal mammary artery harvested on a vascularized pedicle, kept intact on its origin from the subclavian and divided distally. Left pleural space was drained with a 32- Azeri chest tube. Standard sternal retractor was placed and the pericardium was opened in the midline. Heart was exposed with pericardial sutures. The left internal mammary artery was tunneled into the pericardial space and preparations and plans were made for sequential grafting of the first diagonal and left anterior descending coronary artery.. Suction stabilization was used during distal anastomosis. Patient was systemically heparinized and a CTs were maintained greater than 250 during grafting. [id number] anastomosis HERNDON to the diagonal was performed first. The diagonal was opened it was a 1.5 mm vessel blood flow was controlled 1.5 Ahsan flow through. It had diffuse disease with significant back wall plaque. Zdip-ec-[id number] anastomosis was constructed with running 8-0 Prolene suture. On completion the anastomosis the flow through was removed doubly probing the proximal distal portion of the anastomosis. Suture was tied with good result and hemostasis and the bulldog was moved from proximal to distal allowing flow into the diagonal. Graft was noted to lay well without kinking was adequate length to reach the left anterior descending at the planned anastomotic site. The RYAN pedicle was tacked surrounding epicardium with 6-0 silk suture. Next the LAD was stabilized and opened in its midportion near the second diagonal takeoff. Here was a 2.5 mm soft vessel. It did intramyocardially and then surface near the apex. It was opened and blood flow control with a 2 mm flow through. End to side anastomosis between the HERNDON and LAD was performed with running 8-0 Prolene suture. On completion anastomosis the flow through was removed effectively probing the proximal distal portion of the anastomosis. Suture was tied with good result and hemostasis. Inflow was opened and the RYAN pedicle was tacked surrounding epicardium with 6-0 silk sutures. Lateral wall of the heart was exposed. The major marginal branch was a diffusely diseased vessel which terminated and a bifurcation which left to 1 mm vessels. It was opened just prior to this bifurcation. Blood flow was controlled 1.5 mm flow through. Radial artery was anastomosed in end-to-side fashion with running 7-0 Prolene suture. Completion anastomosis good backbleeding was noted into the radial artery after removal of the flow through. The flow through had been removed effectively probing the proximal distal portion of the anastomosis. Suture was tied with good result and hemostasis. Backbleeding was controlled with a bulldog clamp. The radial artery was of more than adequate length to reach the ascending aorta. Next the inferior wall the heart was exposed. The posterior descending coronary artery was a diffusely diseased 1.5 mm vessel. It was opened fairly proximally and 1.5 mm flow through was inserted. Saphenous vein was anastomosed in end to side fashion with running 7-0 Prolene suture. On completion anastomosis flow through was removed effectively probing the proximal distal portion anastomosis. Suture was tied with good result and hemostasis and good backbleeding was noted to the first valve. Heart was lowered into anatomic position and the vein cut to appropriately to reach the ascending aorta. Blood pressure was controlled by anesthesia and a partial occlusion clamp placed on the ascending aorta. 24 mm punch holes were created in the proximal anastomosis performed with running 7-0 Prolene suture. On completion of the proximal anastomoses the radial artery was de-aired by backbleeding and the vein graft de-aired with needle holes. Bulldog clamps were removed and the partial occlusion clamp was removed. Good hemostasis was noted at all anastomotic sites. Heparin was reversed with protamine. Patient was noted be in atrial fibrillation was converted to normal sinus with a single 20 J cardioversion. The 35mm AtriCure clip was applied to the left atrial appendage. We had to again cardiovert the patient as she should she again went into atrial fibrillation. Following this she remained in sinus rhythm. Hemostasis was good. Mediastinum was drained with a 36-Azeri chest tube and irrigated with antibiotic solution. The sternum was closed with 3 sternal wires 3 cable plate. machine coil assembler plate was placed in the manubrium and 2 proximal plates sternal body. This yielded an excellent sternal closure. Hemostasis remained good. The fascia was closed with 0 Ethibond. The subcutaneous and subcuticular layers were closed with multiple layers of Vicryl suture. Skin glue was applied. Dry sterile dressings were then applied. This leg and arm had been similarly closed with Vicryl suture and skin glue and dry sterile dressings applied. Patient was transferred to the ICU in stable hemodynamic condition on no inotropic support having received no blood transfusions.
--- NOTE | 2019-06-22 13:38 | P.ANPRN ---
Procedure Note - Anesthesia - SAMANTA Intraop Pre Bypass SAMANTA Intraop - Anesthesia Indication: CAD Date of Procedure: 06/22/19 Pre-operative Diagnosis: CAD Post-operative Diagnosis: same Surgeon: Sammy Montanez Ejection Fraction: Normal Regional Wall Motion Abnormalities: None Left Ventricle Hypertrophy: Yes R. Ventricle Function: Normal Anatomy: Trileaflet Aortic Stenosis: None Aortic Regurgitation: None Mitral Stenosis: None Mitral Regurgitation: Trace Tricuspid Stenosis: None Tricuspid Regurgitation: None Pulmonic Stenosis: None Pulmonic Regurgitation: None R. Atrial Dilation: No R. Atrial PFO: No L. Atrial Dilation: No Aortic Dissection: No Aortic Calcification: Mild Plural Effusion: None - SAMANTA Intraop Post Bypass SAMANTA Intraop Post Bypass Procedure Performed: off pump CABG Ejection Fraction: Normal Regional Wall Motion Abnormalities: None R. Ventricle Function: Normal Aortic Valve: Unchanged Mitral Valve: Unchanged Tricuspid: Unchanged Pulmonic: Unchanged Aortic Dissection: No
[2019-06-22] MEDS ORDERED: BENZOCAINE/MENTHOL LOZENG 1 EACH LOZENGE MUCOUS MEM PRN (14:00)
[2019-06-22] MEDS ORDERED: CALCIUM GLUCONATE 2 GM in SODIUM CHLORIDE 0.9% 100 ML IVPB PRN (14:00)
[2019-06-22] MEDS ORDERED: Potassium Replacement Protocol 1 EACH MISC MISCELLANE PRN (14:00)
[2019-06-22] MEDS ORDERED: Magnesium Replacement Protocol 1 EACH MISC MISCELLANE PRN (14:00)
[2019-06-22] MEDS ORDERED: AMIODARONE 360 MG in DEXTROSE 5% IN WATER 200 ML IV PRN ×2 (14:00)
[2019-06-22] MEDS ORDERED: Phosphorus Replacement Protoco 1 EACH MISC MISCELLANE PRN (14:00)
[2019-06-22] MEDS ORDERED: PROPOFOL 1,000 MG in EMPTY BAG 1 BAG IV SCH (14:00)
[2019-06-22 14:26] LABS: Ionized Calcium 4.9 mg/dL (4.5-5.3)
[2019-06-22 14:30] LABS: Basophils % (A) 1 %; Eosinophils # (A) 0.3 k/uL (0-0.7); Eosinophils % (A) 4 %; HCT 30.8 % (34.0-46.0); Lymphocytes # (A) 1.9 k/uL (1.0-4.8); Lymphocytes % (A) 24 %; MCH 24.7 pg (25.0-35.0); MCHC 30.4 g/dL (31.0-37.0); MCV 81.1 fL (80.0-100.0); Mean Platelet Volume 8.1; Monocytes # (A) 0.4 k/uL (0-1.0); Monocytes % (A) 4 %; Neutrophils # (A) 5.3 k/uL (1.3-7.7); Neutrophils % (A) 66 %; Platelet Count 237 k/uL (150-450); RDW 12.9 % (11.5-15.5); WBC 8.1 k/uL (3.8-10.6)
[2019-06-22 14:31] LABS: Partial Thromboplastin Time 29.8 sec (22.0-30.0); Prothrombin Time 10.6 sec (9.0-12.0)
[2019-06-22 14:35] LABS: ALT 23 U/L (9-52); AST 18 U/L (14-36); African American GFR (CKD) >90 (>60 ml/min/1.73 sqM); Albumin 2.8 g/dL (3.5-5.0); Alkaline Phosphatase 93 U/L (38-126); Anion Gap 7 mmol/L; Blood Urea Nitrogen 9 mg/dL (7-17); Calcium 7.7 mg/dL (8.4-10.2); Carbon Dioxide 23 mmol/L (22-30); Chloride 110 mmol/L (98-107); Glucose 152 mg/dL (74-99); HGB 9.4 gm/dL (11.4-16.0); Magnesium 1.7 mg/dL (1.6-2.3); Sodium 140 mmol/L (137-145); Total Bilirubin 0.5 mg/dL (0.2-1.3); Total Protein 5.2 g/dL (6.3-8.2)
[2019-06-22 14:40] LABS: Glucose,Whole Blood 147 mg/dL (75-99)
--- NOTE | 2019-06-22 14:49 | XR ---
EXAMINATION TYPE: XR chest 1V portable DATE OF EXAM: 06/22/2019 COMPARISON: 04/18/2019 HISTORY: Difficulty breathing TECHNIQUE: Single frontal view of the chest is obtained. FINDINGS: Bilateral consolidation and pleural effusion noted. ET tube approximately 1.7 cm above the angel. NG tube seen coursing in the left upper quadrant. No obvious pneumothorax. Interstitial isha guero seen. Heart size stable. Boston-Tobias catheter seen with the tip overlying the proximal outflow trac t. IMPRESSION: Bilateral infiltrate and pleural effusion. Correlate for underlying CHF. Pneumonia not e xcluded
[2019-06-22 14:58] LABS: ABG Base Excess -2.5 mmol/L; ABG HCO3 23 mmol/L (21-25); ABG PCO2 40 mmHg (35-45); ABG PH 7.37 (7.35-7.45); ABG PO2 >400 mmHg (83-108); ABG TCO2 24 mmol/L (19-24); Allen Test Performed? Yes
[2019-06-22] MEDS ORDERED: NITROGLYCERIN-D5W PMX 50 MG in DEXTROSE/WATER 1 250ML.BAG IV SCH (15:00)
[2019-06-22 15:27] LABS: Glucose,Whole Blood 188 mg/dL (75-99)
[2019-06-22] MEDS: LACTATED RINGERS 1,000 ML IV SCH (15:38)
[2019-06-22] MEDS: DILTIAZEM 125 MG in SODIUM CHLORIDE 0.9% 100 ML IV SCH ×2 (15:39→21:56)
[2019-06-22] MEDS: ceFAZolin 3 GM in SODIUM CHLORIDE 0.9% 100 ML IVPB SCH (15:40)
--- NOTE | 2019-06-22 15:47 | P.CNPUL ---
History of Present Illness Consult date: 06/22/19 Requesting physician: Sammy Montanez Reason for consult: other (Status post CABG, patient is presently on mechanical ventilation in the ICU. Hence I was asked to see the patient for ICU management.) Chief complaint: Status post CABG History of present illness: This is a 53-year-old -[place] female, history of multiple medical problems including asthma, type 2 diabetes, recently admitted to the hospital on 04/18/2019, and she was discharged on 04/19/2019. Patient was admitted with mostly shortness of breath and wheezing. Patient was treated mostly for bronchial asthma exacerbation, underwent CT angiogram of the chest, and it showed significant coronary artery calcifications. Her d-dimer at the time was 0.75, troponin was less than 0.012, patient was treated mostly for asthma e xacerbation, however she was seen by cardiology on consultation, and recommended outpatient workup for her coronary artery calcification. Apparently since discharge, the patient underwent cardiac catheterization on 06/14/2019, and she was found to have triple-vessel coronary artery disease with significant disease in mid segment of the RCA and 60% lesion in the proximal and midportion of the LAD and the branch of the circumflex was diffusely diseased. Diagonal branch of the LAD had significant disease. Hence the patient was advised to undergo coronary artery bypass surgery. I was asked to see the patient on consultation postoperatively today, patient normally sees Dr. Stephanie jaeger for her asthma. However he does not have ICU privileges, therefore I was asked to see her for ICU management. Presently the patient is on mechanical ventilation, she is on assist control mode rate of 14. Tidal volume is 490, PEEP is 10, and FiO2 is 100%. ABG showed a pO2 of more than 400 pCO2 of 40 pH of 7.37. Hence her FiO2 will be cut down to 45%, and we will eventually cut down the PEEP from 10 to 5. Postoperative chest x-ray showed endotracheal tube in the proper position. Mild interstitial changes noted, no evidence of pneumothorax, and in no evidence of infiltrate. Small tiny pleural effusions noted. Bilateral hilar fullness noted, however recent CT of the chest showed no evidence of by hilar lymphadenopathy. Review of Systems ROS unobtainable: due to endotracheal tube Past Medical History Past Medical History: Asthma, Coronary Artery Disease (CAD), Diabetes Mellitus, Eye Disorder, Hyperlipidemia, Hypertension, Sleep Apnea/CPAP/BIPAP Additional Past Medical History / Comment(s): retinopathy,GLAUCOMA, chronic pain, BLOOD CLOT IN ARM 30 YEARS AGO R/T TO PICC LINE MISPLACEMENT, uses CPAP History of Any Multi-Drug Resistant Organisms: None Reported Past Surgical History: Heart Catheterization Additional Past Surgical History / Comment(s): PICC LINE Past Anesthesia/Blood Transfusion Reactions: No Reported Reaction Additional Past Anesthesia/Blood Transfusion Reaction / Comment(s): no anesthesia Past Psychological History: No Psychological Hx Reported Smoking Status: Never smoker Past Alcohol Use History: None Reported Past Drug Use History: None Reported - Past Family History Father Family Medical History: Cancer Additional Family Medical History / Comment(s): Colon CA Mother Family Medical History: Diabetes Mellitus, Hypertension Brother(s) Family Medical History: Diabetes Mellitus Medications and Allergies Home Medications Medication Instructions Recorded Confirmed Type Insulin Glargine,Hum.rec.anlog 75 unit SQ HS 07/26/18 06/22/19 History [Carline Rey U-100] Mometasone/Formoterol [Dulera 100 2 puff INHALATION RT-BID 07/26/18 06/20/19 History Mcg/5 Mcg Inhaler] Multivitamins, Thera [Multivitamin 1 tab PO DAILY 07/26/18 06/20/19 History (formulary)] Montelukast Sodium [Singulair] 10 mg PO HS 12/18/18 06/20/19 History Albuterol Inhaler [Ventolin Hfa 1 - 2 puff INHALATION RT-Q6H PRN 12/20/18 06/20/19 Rx Inhaler] #1 inhaler Albuterol Nebulized [Ventolin 2.5 mg INHALATION RT-Q4H PRN 03/31/19 06/20/19 History Nebulized] Insulin Lispro [Admelog] 30 unit SQ AC-TID 03/31/19 06/20/19 History Aspirin [Adult Low Dose Aspirin EC] 81 mg PO DAILY 06/12/19 06/20/19 History Latanoprost/Pf [Latanoprost 0.005% 1 drop BOTH EYES HS 06/12/19 06/20/19 History Eye Drop] Atorvastatin [Lipitor] 80 mg PO HS 30 Days #30 tab 06/14/19 06/20/19 Rx Diltiazem Oral [Cardizem*] 60 mg PO DAILY #30 tab 06/14/19 06/20/19 Rx Losartan [Cozaar] 50 mg PO DAILY 30 Days #30 tab 06/14/19 06/20/19 Rx Metoprolol Tartrate [Lopressor] 25 mg PO BID #60 tab 06/14/19 06/20/19 Rx Allergies Allergy/AdvReac Type Severity Reaction Status Date / Time mold AdvReac Itching Verified 06/20/19 11:42 dust Allergy Mild Itching Uncoded 06/20/19 11:42 Physical Exam Vitals: Vital Signs Temp Pulse Resp BP BP Pulse Ox 06/22/19 06:36 97.7 F 95 20 124/59 124/64 100 Intake and Output 06/22/19 06/22/19 06/22/19 06:59 14:59 22:59 Intake Total 25 6 Output Total 1000 Balance 25 -994 Intake: IV 25 6 Output: Urine 500 Estimated Blood Loss 500 Other: Weight 164.2 kg Physical Exam: Revealed a 53-year-old -[place] female, obese, sedated, on mechanical ventilation. Head: Atraumatic normocephalic. Endotracheal tube and orogastric tube are i ntact. HEENT:[Neck is supple.] [No neck masses.] [No thyromegaly.] [No JVD.] PERRLA, EOMI, no icterus. Chest: [Diminished breath sounds at the bases, no crackles, no rhonchi and no wheezes. Symmetrical chest expansion is noted, left sided chest tube is noted. Cardiac Exam: [Normal S1 and S2, no S3 gallop, no murmur.] Positive pericardial rub. Abdomen: [Obese, Soft, nontender, no megaly, no rebound, no guarding, diminished bowel sounds] Extremities: [No clubbing, trace of bipedal edema, no cyanosis.] Good pulses bilaterally, both lower extremities are wrapped with Slade wrappings. Neurological Exam: Patient is intubated, sedated, neurological exam could not be performed. Psychiatric: Could not be performed. Lymphatics: No lymphadenopathy. Skin: No rashes. Results - Laboratory Findings CBC and BMP: 06/22/19 14:14 06/22/19 14:14 ABG ABG pH 7.37 (7.35-7.45) 06/22/19 14:56 ABG pCO2 40 mmHg (35-45) 06/22/19 14:56 ABG pO2 >400 mmHg (83-108) H 06/22/19 14:56 ABG O2 Saturation 100.0 % (94-97) H 06/22/19 14:56 PT/INR, D-dimer PT 10.6 sec (9.0-12.0) 06/22/19 14:14 INR 1.0 (<1.2) 06/22/19 14:14 Abnormal lab findings: Abnormal Labs 06/14/19 06/22/19 06/22/19 10: 06:45 08:39 Hgb Hct MCH MCHC ABG pO2 >420 H ABG HCO3 26 H ABG Total CO2 28 H ABG O2 Saturation 100.0 H ABG Hematocrit ABG Ionized Calcium ABG Glucose 199 H Hemoglobin Chloride Creatinine Glucose POC Glucose (mg/dL) 213 H Calcium Total Protein Albumin Arterial Blood Glucose 199 H Crossmatch See Detail 06/22/19 06/22/19 06/22/19 09:31 10:46 11:47 Hgb Hct MCH MCHC ABG pO2 184 H 131 H 146 H ABG HCO3 26 H 26 H ABG Total CO2 28 H 27 H 26 H ABG O2 Saturation 99.8 H 99.1 H 99.5 H ABG Hematocrit 33 L 32 L ABG Ionized Calcium 4.4 L ABG Glucose 158 H 125 H 113 H Hemoglobin 11.1 L 10.8 L 10.5 L Chloride Creatinine Glucose POC Glucose (mg/dL) Calcium Total Protein Albumin Arterial Blood Glucose 158 H 125 H 113 H Crossmatch 06/22/19 06/22/19 06/22/19 12:49 14:13 14:14 Hgb 9.4 L D Hct 30.8 L MCH 24.7 L MCHC 30.4 L ABG pO2 131 H ABG HCO3 ABG Total CO2 25 H ABG O2 Saturation 98.9 H ABG Hematocrit 31 L ABG Ionized Calcium ABG Glucose 131 H Hemoglobin 10.0 L Chloride Creatinine Glucose POC Glucose (mg/dL) 147 H Calcium Total Protein Albumin Arterial Blood Glucose 131 H Crossmatch 06/22/19 06/22/19 06/22/19 14:14 14:56 15:01 Hgb Hct MCH MCHC ABG pO2 >400 H ABG HCO3 ABG Total CO2 ABG O2 Saturation 100.0 H ABG Hematocrit ABG Ionized Calcium ABG Glucose Hemoglobin Chloride 110 H Creatinine 0.40 L Glucose 152 H POC Glucose (mg/dL) 188 H Calcium 7.7 L Total Protein 5.2 L Albumin 2.8 L Arterial Blood Glucose Crossmatch - Diagnostic Findings Chest x-ray: image reviewed (As noted in HPI.) Assessment and Plan Assessment: Impression: 1 Status post CABG, postoperative day #1. Patient had off-pump CABG 4 with sequential HERNDON to diagonal and LAD, left radial artery to obtuse margin, SVG to PDA and she had clipping of the left atrial appendage 2 history of mild intermittent asthma, presently inactive, however the patient will be placed on DuoNeb updrafts 4 times a day and when necessary. 3 morbid obesity 4 type 2 diabetes 5 seasonal ALLERGIC rhinitis. 6 history of obstructive sleep apnea syndrome uses CPAP at home. 7 benign essential hypertension 8 mixed hyperlipidemia Recommendation: Patient was switched from IMV mode to assist control mode of mechanical ventilation shortly after my evaluation in the ICU, chest x-ray was reviewed, ABG was reviewed, ventilator settings were adjusted, will place the patient on DuoNeb updrafts 4 times a day and when necessary, will closely monitor her sugar and treat with insulin, will likely address weaning and possibly extubation later this evening or in the next few hours. We'll continue to follow. Time with Patient: Greater than 30
[2019-06-22] MEDS: IPRATROPIUM-ALBUTEROL 3 ML NEB INHALATION SCH ×2 (15:50→19:28)
[2019-06-22] MEDS: INSULIN REGULAR 100 UNIT in SODIUM CHLORIDE 0.9% 100 ML IV SCH ×2 (16:46→21:57)
[2019-06-22 16:50] LABS: Glucose,Whole Blood 207 mg/dL (75-99)
[2019-06-22 17:15] LABS: Glucose,Whole Blood 203 mg/dL (75-99)
[2019-06-22 18:11] LABS: Glucose,Whole Blood 197 mg/dL (75-99)
[2019-06-22 18:17] LABS: Basophils % (A) 0 %; Eosinophils # (A) 0.1 k/uL (0-0.7); Eosinophils % (A) 0 %; HCT 31.7 % (34.0-46.0); HGB 9.8 gm/dL (11.4-16.0); Lymphocytes # (A) 0.7 k/uL (1.0-4.8); Lymphocytes % (A) 6 %; MCH 25.3 pg (25.0-35.0); MCHC 30.9 g/dL (31.0-37.0); MCV 81.7 fL (80.0-100.0); Mean Platelet Volume 8.5; Monocytes # (A) 0.4 k/uL (0-1.0); Monocytes % (A) 3 %; Neutrophils # (A) 10.1 k/uL (1.3-7.7); Neutrophils % (A) 89 %; Platelet Count 234 k/uL (150-450); RBC 3.88 m/uL (3.80-5.40); RDW 13.1 % (11.5-15.5); WBC 11.3 k/uL (3.8-10.6)
[2019-06-22] MEDS: ACETAMINOPHEN IV (For NPO) 1,000 MG in EMPTY BAG 1 BAG IVPB SCH (18:20)
[2019-06-22 18:52] LABS: ABG Base Excess -2.7 mmol/L; ABG HCO3 23 mmol/L (21-25); ABG Oxygen Saturation 98.8 % (94-97); ABG PCO2 41 mmHg (35-45); ABG PH 7.35 (7.35-7.45); ABG PO2 128 mmHg (83-108); ABG TCO2 24 mmol/L (19-24); Allen Test Performed? Yes
[2019-06-22 19:22] LABS: Glucose,Whole Blood 173 mg/dL (75-99)
--- NOTE | 2019-06-22 19:31 | P.CONS ---
History of Present Illness - Reason for Consult Consult date: 06/22/19 diabetes management Requesting physician: Sammy Montanez - Chief Complaint chest pain - History of Present Illness Patient is a 53-year-old -Russian female with a past medical history of diabetes mellitus type 2 insulin-dependent poorly controlled with A1c of 12.4, morbid obesity with BMI of 56.7, hypertension, dyslipidemia, asthma, and chronic pain who presented for elective quadruple bypass. Patient underwent four-vessel bypass surgery on 06/[address] Montanez resulting in a HERNDON to the diagonal and LAD, left radial artery to the OM, SVG to the PDA, along with clipping of the left atrial appendage. She had 2 episode of intraop a fib requiring cardioversio n. Patient had initially presented here 04/18 with shortness of breath was treated for asthma exacerbation and outpatient cardiac workup was recommended once wheezing was better controlled. She ultimately underwent cardiac catheterization on 06/14 was found have triple-vessel coronary artery disease and coronary artery bypass grafting was recommended. Patient does follow with Dr. Delvalle for her asthma. Patient seen and examined in ICU. She is still on the ventilator. No current issues per nursing. Currently receiving insulin infusion, propofol, Cardizem, and nitroglycerin. In order to obtain adequate medical information a thorough record review was performed including recent admission on 04/18/19, and surgical consultation from 06/14/19, as well as cardiac catheterization from 06/14/19. Review of Systems Unable to obtain review of systems patient is currently sedated and intubated. Past Medical History Past Medical History: Asthma, Coronary Artery Disease (CAD), Diabetes Mellitus, Eye Disorder, Hyperlipidemia, Hypertension, Sleep Apnea/CPAP/BIPAP Additional Past Medical History / Comment(s): retinopathy,GLAUCOMA, chronic pain, BLOOD CLOT IN ARM 30 YEARS AGO R/T TO PICC LINE MISPLACEMENT, uses CPAP History of Any Multi-Drug Resistant Organisms: None Reported Past Surgical History: Heart Catheterization Additional Past Surgical History / Comment(s): PICC LINE Past Anesthesia/Blood Transfusion Reactions: No Reported Reaction Additional Past Anesthesia/Blood Transfusion Reaction / Comm: no anesthesia Past Psychological History: No Psychological Hx Reported Smoking Status: Never smoker Past Alcohol Use History: None Reported Past Drug Use History: None Reported - Past Family History Father Family Medical History: Cancer Additional Family Medical History / Comment(s): Colon CA Mother Family Medical History: Diabetes Mellitus, Hypertension Brother(s) Family Medical History: Diabetes Mellitus Medications and Allergies Home Medications Medication Instructions Recorded Confirmed Type Insulin Glargine,Hum.rec.anlog 75 unit SQ HS 07/26/18 06/22/19 History [Basaglar Kwikpen U-100] Mometasone/Formoterol [Dulera 100 2 puff INHALATION RT-BID 07/26/18 06/20/19 History Mcg/5 Mcg Inhaler] Multivitamins, Thera [Multivitamin 1 tab PO DAILY 07/26/18 06/20/19 History (formulary)] Montelukast Sodium [Singulair] 10 mg PO HS 12/18/18 06/20/19 History Albuterol Inhaler [Ventolin Hfa 1 - 2 puff INHALATION RT-Q6H PRN 12/20/18 06/20/19 Rx Inhaler] #1 inhaler Albuterol Nebulized [Ventolin 2.5 mg INHALATION RT-Q4H PRN 03/31/19 06/20/19 History Nebulized] Insulin Lispro [Admelog] 30 unit SQ AC-TID 03/31/19 06/20/19 History Aspirin [Adult Low Dose Aspirin EC] 81 mg PO DAILY 06/12/19 06/20/19 History Latanoprost/Pf [Latanoprost 0.005% 1 drop BOTH EYES HS 06/12/19 06/20/19 History Eye Drop] Atorvastatin [Lipitor] 80 mg PO HS 30 Days #30 tab 06/14/19 06/20/19 Rx Diltiazem Oral [Cardizem*] 60 mg PO DAILY #30 tab 06/14/19 06/20/19 Rx Losartan [Cozaar] 50 mg PO DAILY 30 Days #30 tab 06/14/19 06/20/19 Rx Metoprolol Tartrate [Lopressor] 25 mg PO BID #60 tab 06/14/19 06/20/19 Rx Allergies Allergy/AdvReac Type Severity Reaction Status Date / Time mold AdvReac Itching Verified 06/20/19 11:42 dust Allergy Mild Itching Uncoded 06/20/19 11:42 Physical Exam Osteopathic Statement: *. No significant issues noted on an osteopathic structural exam other than those noted in the History and Physical/Consult. Vitals: Vital Signs Temp Pulse Pulse Resp BP BP BP 06/22/19 18:31 95 16 06/22/19 18:00 86 16 111/84 06/22/19 17:30 90 15 92/48 06/22/19 17:00 83 13 87/54 06/22/19 16:30 74 12 96/52 06/22/19 16:20 73 20 96/52 06/22/19 16:10 80 18 96/52 06/22/19 16:00 74 18 06/22/19 15:55 73 06/22/19 15:50 71 12 78/41 06/22/19 15:40 72 19 86/50 06/22/19 15:30 70 16 86/50 06/22/19 15:20 70 16 73/29 06/22/19 15:10 71 12 90/52 06/22/19 15:00 69 16 101/48 06/22/19 14:50 68 15 101/48 06/22/19 14:40 70 12 06/22/19 14:30 71 12 06/22/19 14:20 68 12 06/22/19 14:10 71 12 06/22/19 06:36 97.7 F 95 20 124/59 124/64 Pulse Ox 06/22/19 18:31 06/22/19 18:00 100 06/22/19 17:30 100 06/22/19 17:00 100 06/22/19 16:30 100 06/22/19 16:20 100 06/22/19 16:10 100 06/22/19 16:00 100 06/22/19 15:55 06/22/19 15:50 100 06/22/19 15:40 100 06/22/19 15:30 100 06/22/19 15:20 86 L 06/22/19 15:10 100 06/22/19 15:00 100 06/22/19 14:50 100 06/22/19 14:40 06/22/19 14:30 100 06/22/19 14:20 100 06/22/19 14:10 100 06/22/19 06:36 100 Intake and Output 06/22/19 06/22/19 06/22/19 06:59 14:59 22:59 Intake Total 25 6 662.315 Output Total 1000 638 Balance 25 -994 24.315 Intake: IV 25 6 660 Albumin 500 Injectate 60 LR 100 Intake, IV Titration 2.315 Amount Insulin Regular 100 unit 2.315 In Sodium Chloride 0.9% 100 ml @ Per Protocol IV .Q0M [facility] Rx#:[id number] Output: Chest Tube Drainage 78 Mediastinal/Left Pleural 78 Urine 500 560 Estimated Blood Loss 500 Other: Voiding Method Indwelling Catheter Weight 164.2 kg ABP, PAP, CO, CI - Last 8 Hours Arterial Blood Pressure 89/50 Arterial Blood Pressure 113/65 Arterial Blood Pressure 88/56 Arterial Blood Pressure 85/50 Arterial Blood Pressure 76/48 Arterial Blood Pressure 87/54 Arterial Blood Pressure 95/54 Arterial Blood Pressure 84/48 Arterial Blood Pressure 82/49 Arterial Blood Pressure 79/52 Arterial Blood Pressure 64/59 Arterial Blood Pressure 86/50 Arterial Blood Pressure 85/51 Arterial Blood Pressure 63/59 Arterial Blood Pressure 136/55 Arterial Blood Pressure 114/57 Arterial Blood Pressure 124/62 Pulmonary Artery Pressure 26/16 Pulmonary Artery Pressure 32/19 Pulmonary Artery Pressure 26/14 Pulmonary Artery Pressure 31/20 Pulmonary Artery Pressure 28/19 Pulmonary Artery Pressure 32/19 Pulmonary Artery Pressure 32/19 Pulmonary Artery Pressure 29/17 Pulmonary Artery Pressure 31/18 Pulmonary Artery Pressure 29/16 Pulmonary Artery Pressure 29/18 Pulmonary Artery Pressure 28/17 Pulmonary Artery Pressure 30/17 Pulmonary Artery Pressure 29/17 Pulmonary Artery Pressure 30/19 Pulmonary Artery Pressure 38/13 Pulmonary Artery Pressure 28/16 Pulmonary Artery Pressure 36/23 Cardiac Output 6.1 Cardiac Output 7.5 Cardiac Output 6.7 Cardiac Output 6.7 Cardiac Output 6.7 Cardiac Output 5.1 Cardiac Output 5.1 Cardiac Output 5.1 Cardiac Output 5.1 Cardiac Output 6.4 Cardiac Output 6.4 Cardiac Output 6.4 Cardiac Output 6.4 Cardiac Output 6.4 Cardiac Output 6.4 Cardiac Output 6.9 Cardiac Index 2.4 Cardiac Index 2.9 Cardiac Index 2.6 Cardiac Index 2.6 Cardiac Index 2.6 Cardiac Index 2 Cardiac Index 2 Cardiac Index 2 Cardiac Index 2 Cardiac Index 2.5 Cardiac Index 2.5 Cardiac Index 2.5 Cardiac Index 2.5 Cardiac Index 2.5 Cardiac Index 2.5 Cardiac Index 2.7 General: Appearing, appears older than stated age, morbidly obese, sedated on vent Derm: Dressing in place over left wrist and legs, no unusual rashes/lesions no unusual ecchymoses, warm, dry Head: atraumatic, normocephalic, symmetric Eyes: No lip lesion, anicteric sclera, pupils equal round reactive to light ENT: Nose and ears atraumatic, ET tube in place Neck: No thyromegaly, no cervical lymphadenopathy, trachea midline, supple, R cordis Mouth: no lip lesion, mucus membranes moist Cardiovascular: S1S2 reg, no murmur, positive posterior tibial pulse bilateral, no edema, capillary refill less than 2 seconds Lungs: Coarse breath sounds bilaterally, on vent, no rhonchi, no rales , no accessory muscle use, medistinal and left sided chest tubes in place Abdominal: soft, nontender to palpation, no guarding, no appreciable organo megaly, normal bowel sounds Ext: no gross muscle atrophy, no contractures, Neuro: sedated on vents, no withdrawal to pain in b/l upper extremities Psych: sedated on vent Results CBC & Chem 7: 06/22/19 18:00 06/22/19 14:14 Labs: Abnormal Lab Results - Last 24 Hours (Table) 06/14/19 06/22/19 06/22/19 Range/Units 10:26 06:45 08:39 WBC (3.8-10.6) k/uL Hgb (11.4-16.0) gm/dL Hct (34.0-46.0) % MCH (25.0-35.0) pg MCHC (31.0-37.0) g/dL Neutrophils # (1.3-7.7) k/uL Lymphocytes # (1.0-4.8) k/uL ABG pO2 >420 H (83-108) mmHg ABG HCO3 26 H (21-25) mmol/L ABG Total CO2 28 H (19-24) mmol/L ABG O2 Saturation 100.0 H (94-97) % ABG Hematocrit (34.0-46.0) % ABG Ionized Calcium (4.5-5.3) mg/dL ABG Glucose 199 H (75-99) mg/dL Hemoglobin (11.4-16.0) gm/dL Chloride (98-107) mmol/L Creatinine (0.52-1.04) mg/dL Glucose (74-99) mg/dL POC Glucose (mg/dL) 213 H (75-99) mg/dL Calcium (8.4-10.2) mg/dL Total Protein (6.3-8.2) g/dL Albumin (3.5-5.0) g/dL Arterial Blood Glucose 199 H (75-99) mg/dL Crossmatch See Detail 06/22/19 06/22/19 06/22/19 Range/Units 09:31 10:46 11:47 WBC (3.8-10.6) k/uL Hgb (11.4-16.0) gm/dL Hct (34.0-46.0) % MCH (25.0-35.0) pg MCHC (31.0-37.0) g/dL Neutrophils # (1.3-7.7) k/uL Lymphocytes # (1.0-4.8) k/uL ABG pO2 184 H 131 H 146 H (83-108) mmHg ABG HCO3 26 H 26 H (21-25) mmol/L ABG Total CO2 28 H 27 H 26 H (19-24) mmol/L ABG O2 Saturation 99.8 H 99.1 H 99.5 H (94-97) % ABG Hematocrit 33 L 32 L (34.0-46.0) % ABG Ionized Calcium 4.4 L (4.5-5.3) mg/dL ABG Glucose 158 H 125 H 113 H (75-99) mg/dL Hemoglobin 11.1 L 10.8 L 10.5 L (11.4-16.0) gm/dL Chloride (98-107) mmol/L Creatinine (0.52-1.04) mg/dL Glucose (74-99) mg/dL POC Glucose (mg/dL) (75-99) mg/dL Calcium (8.4-10.2) mg/dL Total Protein (6.3-8.2) g/dL Albumin (3.5-5.0) g/dL Arterial Blood Glucose 158 H 125 H 113 H (75-99) mg/dL Crossmatch 06/22/19 06/22/19 06/22/19 Range/Units 12:49 14:13 14:14 WBC (3.8-10.6) k/uL Hgb 9.4 L D (11.4-16.0) gm/dL Hct 30.8 L (34.0-46.0) % MCH 24.7 L (25.0-35.0) pg MCHC 30.4 L (31.0-37.0) g/dL Neutrophils # (1.3-7.7) k/uL Lymphocytes # (1.0-4.8) k/uL ABG pO2 131 H (83-108) mmHg ABG HCO3 (21-25) mmol/L ABG Total CO2 25 H (19-24) mmol/L ABG O2 Saturation 98.9 H (94-97) % ABG Hematocrit 31 L (34.0-46.0) % ABG Ionized Calcium (4.5-5.3) mg/dL ABG Glucose 131 H (75-99) mg/dL Hemoglobin 10.0 L (11.4-16.0) gm/dL Chloride (98-107) mmol/L Creatinine (0.52-1.04) mg/dL Glucose (74-99) mg/dL POC Glucose (mg/dL) 147 H (75-99) mg/dL Calcium (8.4-10.2) mg/dL Total Protein (6.3-8.2) g/dL Albumin (3.5-5.0) g/dL Arterial Blood Glucose 131 H (75-99) mg/dL Crossmatch 06/22/19 06/22/19 06/22/19 Range/Units 14:14 14:56 15:01 WBC (3.8-10.6) k/uL Hgb (11.4-16.0) gm/dL Hct (34.0-46.0) % MCH (25.0-35.0) pg MCHC (31.0-37.0) g/dL Neutrophils # (1.3-7.7) k/uL Lymphocytes # (1.0-4.8) k/uL ABG pO2 >400 H (83-108) mmHg ABG HCO3 (21-25) mmol/L ABG Total CO2 (19-24) mmol/L ABG O2 Saturation 100.0 H (94-97) % ABG Hematocrit (34.0-46.0) % ABG Ionized Calcium (4.5-5.3) mg/dL ABG Glucose (75-99) mg/dL Hemoglobin (11.4-16.0) gm/dL Chloride 110 H (98-107) mmol/L Creatinine 0.40 L (0.52-1.04) mg/dL Glucose 152 H (74-99) mg/dL POC Glucose (mg/dL) 188 H (75-99) mg/dL Calcium 7.7 L (8.4-10.2) mg/dL Total Protein 5.2 L (6.3-8.2) g/dL Albumin 2.8 L (3.5-5.0) g/dL Arterial Blood Glucose (75-99) mg/dL Crossmatch 06/22/19 06/22/19 06/22/19 Range/Units 16:24 17:08 18:00 WBC 11.3 H (3.8-10.6) k/uL Hgb 9.8 L (11.4-16.0) gm/dL Hct 31.7 L (34.0-46.0) % MCH (25.0-35.0) pg MCHC 30.9 L (31.0-37.0) g/dL Neutrophils # 10.1 H (1.3-7.7) k/uL Lymphocytes # 0.7 L (1.0-4.8) k/uL ABG pO2 (83-108) mmHg ABG HCO3 (21-25) mmol/L ABG Total CO2 (19-24) mmol/L ABG O2 Saturation (94-97) % ABG Hematocrit (34.0-46.0) % ABG Ionized Calcium (4.5-5.3) mg/dL ABG Glucose (75-99) mg/dL Hemoglobin (11.4-16.0) gm/dL Chloride (98-107) mmol/L Creatinine (0.52-1.04) mg/dL Glucose (74-99) mg/dL POC Glucose (mg/dL) 207 H 203 H (75-99) mg/dL Calcium (8.4-10.2) mg/dL Total Protein (6.3-8.2) g/dL Albumin (3.5-5.0) g/dL Arterial Blood Glucose (75-99) mg/dL Crossmatch 06/22/19 Range/Units 18:08 WBC (3.8-10.6) k/uL Hgb (11.4-16.0) gm/dL Hct (34.0-46.0) % MCH (25.0-35.0) pg MCHC (31.0-37.0) g/dL Neutrophils # (1.3-7.7) k/uL Lymphocytes # (1.0-4.8) k/uL ABG pO2 (83-108) mmHg ABG HCO3 (21-25) mmol/L ABG Total CO2 (19-24) mmol/L ABG O2 Saturation (94-97) % ABG Hematocrit (34.0-46.0) % ABG Ionized Calcium (4.5-5.3) mg/dL ABG Glucose (75-99) mg/dL Hemoglobin (11.4-16.0) gm/dL Chloride (98-107) mmol/L Creatinine (0.52-1.04) mg/dL Glucose (74-99) mg/dL POC Glucose (mg/dL) 197 H (75-99) mg/dL Calcium (8.4-10.2) mg/dL Total Protein (6.3-8.2) g/dL Albumin (3.5-5.0) g/dL Arterial Blood Glucose (75-99) mg/dL Crossmatch Assessment and Plan Assessment: Patient is a 53 yo AAF care with elective 4 vessel bypass surgery. Diabetes mellitus type 2 insulin requiring, uncontrolled -Continue with insulin drip until patient is extubated and tolerating oral intake -Patient typically takes basalgalr 75 units at night and admalog 30 units 3 times a day. Suspect that there is a large component of dietary noncompliance. We'll place her initial insulin dosing off of her IV insulin requirements and home insulin requirements -Follow blood sugars closely -Hemoglobin A1c 12.4 -Consult adaptive physical educator -Ideally would benefit form outpatient endocrinology evaluation if able to coordinate Acute blood loss anemia, an anticipated outcome of surgery - follow CBC - Check Fe studies mild intermittent asthma - duoneb - at home on dulera, singulair, and ventolin as needed. Morbid obesity with BMI 56.7 - structured outpatient weight loss VU - home CPAP after extubation HTN - management per cardiovascular surgery. Atherosclerotic coronary artery disease status post 4 vessel bypass surgery -Management per cardiovascular surgery A. fib with RVR -Currently on Cardizem drip -Monitor telemetry -Management per cardiovascular surgery Thank you for allowing us to participate in the care of this patient. Do not hesitate to contact us with questions. Someone can be reached from the [facility] hospitalist group at all hours of the day at [phone]. Dr. Kimble is not currently seeing patients, on discharge can follow-up with Juany Moraes NP and after 07/16 Dr. Stanford will be covering Dr. Kimble's practice.
[2019-06-22] MEDS ORDERED: MUPIROCIN 2% OINT 22 GM TUBE NASAL ONE (19:45)
[2019-06-22] MEDS: ONDANSETRON 4 MG/2 ML VIAL IVP PRN (20:32)
[2019-06-22 20:40] LABS: Glucose,Whole Blood 156 mg/dL (75-99)
[2019-06-22 21:29] LABS: Glucose,Whole Blood 157 mg/dL (75-99)
[2019-06-22 22:14] LABS: African American GFR (CKD) >90 (>60 ml/min/1.73 sqM); Anion Gap 6 mmol/L; Blood Urea Nitrogen 9 mg/dL (7-17); Calcium 8.2 mg/dL (8.4-10.2); Carbon Dioxide 25 mmol/L (22-30); Chloride 107 mmol/L (98-107); Glucose 146 mg/dL (74-99); Potassium 4.1 mmol/L (3.5-5.1); Sodium 138 mmol/L (137-145)
[2019-06-22] MEDS: MONTELUKAST 10 MG TAB PO SCH (22:19)
[2019-06-22 22:49] LABS: Glucose,Whole Blood 141 mg/dL (75-99)
[2019-06-22 23:04] LABS: Glucose,Whole Blood 125 mg/dL (75-99)
[2019-06-23] MEDS: ceFAZolin 3 GM in SODIUM CHLORIDE 0.9% 100 ML IVPB SCH ×2 (00:25→08:22)
[2019-06-23] MEDS: ACETAMINOPHEN IV (For NPO) 1,000 MG in EMPTY BAG 1 BAG IVPB SCH (00:25)
[2019-06-23 00:36] LABS: Glucose,Whole Blood 116 mg/dL (75-99)
[2019-06-23 01:08] LABS: Glucose,Whole Blood 106 mg/dL (75-99)
[2019-06-23] MEDS: HEPARIN SODIUM,PORCINE 5,000 UNIT/ML 1 ML VIAL SQ SCH ×3 (01:10→18:09)
[2019-06-23] MEDS ORDERED: HYDROcodone/APAP 5-325MG 1 EACH TAB PO PRN ×2 (01:32)
--- NOTE | 2019-06-23 01:49 | CONS ---
CONSULTATION Jameson Condon is a 53-year-old female who has a history of severe asthma and coronary artery disease, who underwent coronary artery bypass today. She is in the ICU in the postoperative state on a ventilator. She was transiently placed on CPAP and had a vital capacity of 780, respiratory rate in the 20s. She had an RSBI of 60 but is sleepy and inconsistently following commands. She underwent an off pump coronary artery bypass x4 with sequential HERNDON to diagonal and LAD, left radial to the obtuse marginal and a saphenous venous graft to the PDA with endovascular harvest of the left radial artery in the saphenous vein with clipping of the left atrial appendage as well. She had recently been admitted to the hospital with asthma with exacerbation and subsequently underwent an outpatient cardiac catheterization. As she had triple-vessel disease with calcification she was sent for coronary artery bypass. Preoperatively, she had an FEV1 of 0.99 L which is 30% of predicted. Prior to that, she had an FEV1 of 1.26 L which is 53% of predicted. She has a known history of severe asthma and is being considered for a biologic. She has a known history of diabetes type 2, obstructive sleep apnea for which she uses a CPAP diligently. PAST MEDICAL HISTORY: Positive for severe asthma, hyperlipidemia, coronary artery disease, hypertension, diabetes mellitus, and obstructive sleep apnea. SOCIAL HISTORY: Patient is a never smoker. Does not drink alcohol excessively. FAMILY HISTORY: Positive for cancer in the father. Her daughter suffers from ABPA and atrial fibrillation. REVIEW OF SYSTEMS: Noncontributory other than for what is described in the history of present illness and past medical history. MEDICATIONS: Prior to admission were glargine insulin 75 units subcu q.h.s., multivitamin, Singulair, Dulera, Lopressor, Cozaar, Cardizem, Lipitor, albuterol nebulized, Ventolin HFA, budesonide in the nebulizer. PHYSICAL EXAMINATION: She was lying in bed. She was on a vent. She was sleepy but arousable. Her blood pressure is 105/57, respiratory rate of 18, pulse rate of 106, temperature - she was afebrile. HEENT reveals pupils that are equal. ET tube is in place. Chest reveals decreased breath sounds. No clear wheeze. Cardiovascular system reveals an S1, S2. Surgical dressing in place. Abdomen is soft. There is 1+ pedal edema. LABS: Reveal a white count of 11.3, hemoglobin of 9.8. ABG showed a pH of 7.35, pCO2 of 41, PO2 128, bicarb of 23, O2 saturation of 98.8% on FiO2 of 40%. Glucose 173. Chest x- ray showed ET tube in place with some crowding of the vasculature. IMPRESSION AT THIS TIME: 1. Coronary artery disease status post coronary artery bypass. 2. Type 2 diabetes. 3. Severe asthma. 4. Obstructive sleep apnea. At this point in time from a pulmonary standpoint, would continue bronchodilators, allow her to awaken prior to extubation, add inhaled steroids and leukotriene receptor antagonist to her regimen in the hope of avoiding systemic steroids. Her prognosis at this time is fair. I did discuss my thoughts with the respiratory therapist and the nurse. I would like to thank you for giving me the privilege of participating in the care of this patient. MMODL / IJN: [id number] /
[2019-06-23 02:17] LABS: Glucose,Whole Blood 101 mg/dL (75-99)
[2019-06-23] MEDS: ONDANSETRON 4 MG/2 ML VIAL IVP PRN ×3 (02:33→16:30)
[2019-06-23 03:12] LABS: Glucose,Whole Blood 123 mg/dL (75-99)
[2019-06-23 04:21] LABS: Glucose,Whole Blood 127 mg/dL (75-99)
[2019-06-23 04:52] LABS: Basophils % (A) 0 %; Eosinophils # (A) 0.1 k/uL (0-0.7); Eosinophils % (A) 1 %; HCT 31.4 % (34.0-46.0); HGB 9.9 gm/dL (11.4-16.0); Hypochromasia Slight; Lymphocytes # (A) 0.7 k/uL (1.0-4.8); Lymphocytes % (A) 7 %; MCH 25.9 pg (25.0-35.0); MCHC 31.5 g/dL (31.0-37.0); MCV 82.2 fL (80.0-100.0); Mean Platelet Volume 6.5; Monocytes # (A) 0.4 k/uL (0-1.0); Monocytes % (A) 4 %; Neutrophils # (A) 8.3 k/uL (1.3-7.7); Neutrophils % (A) 87 %; Platelet Count 249 k/uL (150-450); RBC 3.82 m/uL (3.80-5.40); RDW 12.7 % (11.5-15.5); WBC 9.6 k/uL (3.8-10.6)
[2019-06-23 04:58] LABS: Ionized Calcium 4.8 mg/dL (4.5-5.3)
[2019-06-23 05:06] LABS: ALT 22 U/L (9-52); AST 25 U/L (14-36); African American GFR (CKD) >90 (>60 ml/min/1.73 sqM); Albumin 3.2 g/dL (3.5-5.0); Alkaline Phosphatase 97 U/L (38-126); Anion Gap 8 mmol/L; Blood Urea Nitrogen 9 mg/dL (7-17); Calcium 8.1 mg/dL (8.4-10.2); Carbon Dioxide 25 mmol/L (22-30); Chloride 106 mmol/L (98-107); Glucose 146 mg/dL (74-99); Magnesium 1.7 mg/dL (1.6-2.3); Sodium 139 mmol/L (137-145); Total Bilirubin 0.6 mg/dL (0.2-1.3); Total Protein 5.8 g/dL (6.3-8.2)
[2019-06-23 05:21] LABS: Glucose,Whole Blood 117 mg/dL (75-99)
[2019-06-23] MEDS ORDERED: Magnesium Replacement Protocol 1 EACH MISC MISCELLANE PRN (05:28)
[2019-06-23] MEDS: IPRATROPIUM-ALBUTEROL 3 ML NEB INHALATION PRN (05:34)
--- NOTE | 2019-06-23 06:05 | XR ---
EXAMINATION TYPE: XR chest 1V portable DATE OF EXAM: 06/23/2019 HISTORY: Post Operative Cardiac Surgery. REFERENCE: Previous study dated 06/22/2019. FINDINGS: The patient has been extubated. NG tube is been removed. A right internal jugular sheath re rosemary in place. The Russell-Tobias catheter appears to been removed. The left pleural drain has been remov ed. There is worsening bibasilar airspace disease greater on the right left. There are small, bilateral e ffusions. Heart size is largely obscured. IMPRESSION: WORSENING BIBASILAR INFILTRATES AND BILATERAL EFFUSIONS.
[2019-06-23 06:09] LABS: Glucose,Whole Blood 120 mg/dL (75-99)
[2019-06-23] MEDS: MAGNESIUM SULFATE-D5W PMX 1 GM in DEXTROSE/WATER 1 100ML.BAG IVPB SCH ×2 (06:10→07:30)
[2019-06-23 06:51] LABS: Glucose,Whole Blood 124 mg/dL (75-99)
[2019-06-23] MEDS: BUDESONIDE 0.5 MG/2 ML NEBU INHALATION SCH ×2 (07:31→20:43)
[2019-06-23] MEDS: IPRATROPIUM-ALBUTEROL 3 ML NEB INHALATION SCH ×6 (07:31→20:43)
[2019-06-23 08:10] LABS: Glucose,Whole Blood 140 mg/dL (75-99)
[2019-06-23] MEDS: CLOPIDOGREL 75 MG TAB PO SCH (08:17)
[2019-06-23] MEDS: ATORVASTATIN 40 MG TAB PO SCH (08:17)
[2019-06-23] MEDS: ASPIRIN 325 MG TAB PO SCH (08:17)
[2019-06-23] MEDS: KETOROLAC 30 MG/ML 1 ML VIAL IVP SCH ×3 (08:31→18:09)
[2019-06-23] MEDS: LACTATED RINGERS 1,000 ML IV SCH (08:32)
[2019-06-23] MEDS: METOPROLOL TARTRATE 25 MG TAB PO SCH ×2 (08:32→20:57)
[2019-06-23] MEDS: DILTIAZEM ORAL 30 MG TAB PO SCH ×4 (08:32→22:33)
[2019-06-23] MEDS: PANTOPRAZOLE 40 MG TABLET PO SCH (08:32)
[2019-06-23] MEDS ORDERED: FUROSEMIDE 10 MG/ML 2 ML VIAL IV STA (08:42)
[2019-06-23] MEDS ORDERED: METOPROLOL TARTRATE 12.5 MG TAB PO SCH (09:00)
[2019-06-23] MEDS ORDERED: PANTOPRAZOLE 40 MG/10 ML VIAL IVP SCH (09:00)
[2019-06-23] MEDS ORDERED: BISACODYL 10 MG SUPP RECTAL PRN (09:00)
[2019-06-23] MEDS ORDERED: MAGNESIUM HYDROXIDE 2,400 MG/10 ML CUP PO PRN (09:00)
[2019-06-23 09:03] LABS: Glucose,Whole Blood 133 mg/dL (75-99)
[2019-06-23 10:11] LABS: Glucose,Whole Blood 127 mg/dL (75-99)
--- NOTE | 2019-06-23 10:32 | P.PN ---
Subjective Progress Note Date: 06/23/19 Principal diagnosis: Coronary arteriosclerosis, history of hypertension, hyperlipidemia, uncontrolled insulin dependent diabetes with hyperglycemia and her preoperative hemoglobin A1c of 12.4, asthma, obstructive sleep apnea with home CPAP use, morbid obesity with a BMI of 56, remote history of pneumonia and family history of diabetes and hypertension. POD #1 off-pump coronary artery bypass grafting surgery 4 vessels with sequential HERNDON to the diagonal coronary artery and left anterior descending coronary artery, a left radial artery to the obtuse marginal coronary artery, a reverse saphenous vein graft to the PDA with an endovascular harvesting of the left radial artery and greater saphenous vein. Clipping of the left atrial appendage using a 35 mm Atriclip. Postoperative acute blood loss anemia, an expected outcome of surgery due to hemodilution. The patient is sitting up to the bedside chair in the intensive care unit. She is in no acute distress. Currently she denies any complaints of pain or shortness of breath. She is hemodynamically stable and is non-no inotropic or pressor support. Right IJ Cordis and Taylor-Tobias are in place with her care hemod ynamics showing a cardiac output of 7.6, cardiac index 2.9, PA pressures 28/12, CVP 12 mmHg. Cardizem drip remains infusing at 5 mg per hour for radial artery spasm prophylaxis. She was successfully extubated at 8 PM last night and currently her oxygen saturations are 96% on 4 L nasal cannula and she is achieving around 500 mL on her incentive spirometry with encouragement. She has a surgical support bra in place and a heart hugger in place and she is demonstrating appropriate use with encouragement. Mediastinal and left pleural chest tubes are in place to low continuous wall suction -20 cm H2O. No air leak is present. Draining thin serosanguineous drainage with 450 mL output since jorge luis andre. She is opening up her eyes with verbal stimuli but reports she feels quite tired still and is closing her eyes during that conversation. She remains on an insulin drip at 3.5 units per hour. Objective - Vital Signs Vital signs: Vital Signs Temp 98.2 F 06/23/19 08:00 Pulse 112 H 06/23/19 09:00 Resp 39 H 06/23/19 09:00 BP 96/70 06/23/19 09:00 Pulse Ox 95 06/23/19 09:00 Intake & Output 06/22/19 06/23/19 06/23/19 18:59 06:59 18:59 Intake Total 712.730 5932.665 201.000 Output Total 1638 1045 180 Balance -969.685 51.665 21.000 Weight 171.9 kg Intake: IV 666 720 180 Albumin 500 Injectate 60 120 30 LR 100 600 150 Intake, IV Titration 2.315 376.665 21.000 Amount ACETAMINOPHEN IV (For NPO 100 ) 1,000 mg In Empty Bag 1 bag @ 400 mls/hr IVPB Q6HR YESSENIA Rx#:[id number] Diltiazem 125 mg In 31.417 Sodium Chloride 0.9% 100 ml @ 5 MG/HR 5 mls/hr IV .Q24H YESSENIA Rx#:[id number] Insulin Regular 100 unit 2.315 45.248 21.000 In Sodium Chloride 0.9% 100 ml @ Per Protocol IV .Q0M YESSENIA Rx#:[id number] Magnesium Sulfate-D5w Pmx 100 1 gm In Dextrose/Water 1 100ml.bag @ 100 mls/hr IVPB Q1H YESSENIA Rx#: [id number] ceFAZolin 3 gm In Sodium 100 Chloride 0.9% 100 ml @ 100 mls/hr IVPB Q8HR YESSENIA Rx#:[id number] Output: Chest Tube Drainage 78 260 40 Mediastinal/Left Pleural 78 260 40 Drainage 30 Left Wrist 30 Urine 1060 755 140 Estimated Blood Loss 500 Other: Voiding Method Indwelling Catheter Indwelling Catheter Indwelling Catheter ABP, PAP, CO, CI - Last Documented Arterial Blood Pressure 99/62 Pulmonary Artery Pressure 30/14 Cardiac Output 7.6 Cardiac Index 2.9 - Constitutional Constitutional Comment(s): Morbidly obese. Opens eyes easily with verbal stimuli, although closes eyes in mid conversation. General appearance: Present: cooperative, no acute distress - Respiratory Details: Lung sounds essentially clear throughout, diminished bilateral bases. Respirations are symmetrical and nonlabored. No wheezing, rhonchi or crackles appreciated. Oxygen saturations are 96% on 4 L nasal cannula. Achieving 500 mL on her incentive spirometry. Mediastinal and left pleural chest tubes in place to low continuous wall suction -20 cm H2O. No air leak is present. Draining thin serosanguineous drainage. - Cardiovascular Details: Regular rhythm with tachycardic rate. S1 and S2 present, negative for S3, gallop or murmur. Sternum is stable. Bedside telemetry showing sinus tachycardia heart rate 109. Surgical support bra and heart hugger in place and she is demonstrating appropriate use of the heart hugger with encouragement. Knee-high ZAINAB hose and sequential compression devices in place to bilateral lower extremities. Right IJ Cordis and Taylor-Tobias in place with current hemodynamics showing a cardiac output 7.6, cardiac index 2.9, PA pressures 28/12, CVP 12 mmHg. - Gastrointestinal Gastrointestinal Comment(s): Abdomen is soft, nontender and nondistended. Hypoactive bowel sounds present all 4 abdominal quadrants. No guarding or rigidity. No organomegaly appreciated. Morbidly obese. - Genitourinary Genitourinary Comment(s): Argueta catheter for accurate I&O. Draining clear yellow urine. 280 mL output in the last 8 hours. - Integumentary Integumentary Comment(s): Skin is warm and dry. No clear cyanosis present. Midline sternal incision is clean, dry and approximated. Left arm radial artery harvest sites clean, dry and approximated. No drainage or redness is present. Left arm LOLI drain in place with scant serosanguineous drainage. Right lower extremity EVH site clean, dry and approximated. No drainage or redness present. - Neurologic Neurologic Comment(s): No focal deficits. Neurologic: Present: CNII-XII intact - Musculoskeletal Musculoskeletal: Present: generalized weakness, strength equal bilaterally - Psychiatric Psychiatric Comment(s): Oriented 3. Psychiatric: Present: appropriate affect, intact judgment & insight - Allied health notes Allied health notes reviewed: nursing - Labs CBC & Chem 7: 06/23/19 04:35 06/23/19 04:35 Labs: Abnormal Lab Results - Last 24 Hours (Table) 06/14/19 06/22/19 06/22/19 Range/Units 10:26 08:39 09:31 WBC (3.8-10.6) k/uL Hgb (11.4-16.0) gm/dL Hct (34.0-46.0) % MCH (25.0-35.0) pg MCHC (31.0-37.0) g/dL Neutrophils # (1.3-7.7) k/uL Lymphocytes # (1.0-4.8) k/uL ABG pO2 >420 H 184 H (83-108) mmHg ABG HCO3 26 H 26 H (21-25) mmol/L ABG Total CO2 28 H 28 H (19-24) mmol/L ABG O2 Saturation 100.0 H 99.8 H (94-97) % ABG Hematocrit (34.0-46.0) % ABG Ionized Calcium (4.5-5.3) mg/dL ABG Glucose 199 H 158 H (75-99) mg/dL Hemoglobin 11.1 L (11.4-16.0) gm/dL Chloride (98-107) mmol/L Creatinine (0.52-1.04) mg/dL Glucose (74-99) mg/dL POC Glucose (mg/dL) (75-99) mg/dL Calcium (8.4-10.2) mg/dL Total Protein (6.3-8.2) g/dL Albumin (3.5-5.0) g/dL Arterial Blood Glucose 199 H 158 H (75-99) mg/dL Crossmatch See Detail 06/22/19 06/22/19 06/22/19 Range/Units 10:46 11:47 12:49 WBC (3.8-10.6) k/uL Hgb (11.4-16.0) gm/dL Hct (34.0-46.0) % MCH (25.0-35.0) pg MCHC (31.0-37.0) g/dL Neutrophils # (1.3-7.7) k/uL Lymphocytes # (1.0-4.8) k/uL ABG pO2 131 H 146 H 131 H (83-108) mmHg ABG HCO3 26 H (21-25) mmol/L ABG Total CO2 27 H 26 H 25 H (19-24) mmol/L ABG O2 Saturation 99.1 H 99.5 H 98.9 H (94-97) % ABG Hematocrit 33 L 32 L 31 L (34.0-46.0) % ABG Ionized Calcium 4.4 L (4.5-5.3) mg/dL ABG Glucose 125 H 113 H 131 H (75-99) mg/dL Hemoglobin 10.8 L 10.5 L 10.0 L (11.4-16.0) gm/dL Chloride (98-107) mmol/L Creatinine (0.52-1.04) mg/dL Glucose (74-99) mg/dL POC Glucose (mg/dL) (75-99) mg/dL Calcium (8.4-10.2) mg/dL Total Protein (6.3-8.2) g/dL Albumin (3.5-5.0) g/dL Arterial Blood Glucose 125 H 113 H 131 H (75-99) mg/dL Crossmatch 06/22/19 06/22/19 06/22/19 Range/Units 14:13 14:14 14:14 WBC (3.8-10.6) k/uL Hgb 9.4 L D (11.4-16.0) gm/dL Hct 30.8 L (34.0-46.0) % MCH 24.7 L (25.0-35.0) pg MCHC 30.4 L (31.0-37.0) g/dL Neutrophils # (1.3-7.7) k/uL Lymphocytes # (1.0-4.8) k/uL ABG pO2 (83-108) mmHg ABG HCO3 (21-25) mmol/L ABG Total CO2 (19-24) mmol/L ABG O2 Saturation (94-97) % ABG Hematocrit (34.0-46.0) % ABG Ionized Calcium (4.5-5.3) mg/dL ABG Glucose (75-99) mg/dL Hemoglobin (11.4-16.0) gm/dL Chloride 110 H (98-107) mmol/L Creatinine 0.40 L (0.52-1.04) mg/dL Glucose 152 H (74-99) mg/dL POC Glucose (mg/dL) 147 H (75-99) mg/dL Calcium 7.7 L (8.4-10.2) mg/dL Total Protein 5.2 L (6.3-8.2) g/dL Albumin 2.8 L (3.5-5.0) g/dL Arterial Blood Glucose (75-99) mg/dL Crossmatch 06/22/19 06/22/19 06/22/19 Range/Units 14:56 15:01 16:24 WBC (3.8-10.6) k/uL Hgb (11.4-16.0) gm/dL Hct (34.0-46.0) % MCH (25.0-35.0) pg MCHC (31.0-37.0) g/dL Neutrophils # (1.3-7.7) k/uL Lymphocytes # (1.0-4.8) k/uL ABG pO2 >400 H (83-108) mmHg ABG HCO3 (21-25) mmol/L ABG Total CO2 (19-24) mmol/L ABG O2 Saturation 100.0 H (94-97) % ABG Hematocrit (34.0-46.0) % ABG Ionized Calcium (4.5-5.3) mg/dL ABG Glucose (75-99) mg/dL Hemoglobin (11.4-16.0) gm/dL Chloride (98-107) mmol/L Creatinine (0.52-1.04) mg/dL Glucose (74-99) mg/dL POC Glucose (mg/dL) 188 H 207 H (75-99) mg/dL Calcium (8.4-10.2) mg/dL Total Protein (6.3-8.2) g/dL Albumin (3.5-5.0) g/dL Arterial Blood Glucose (75-99) mg/dL Crossmatch 06/22/19 06/22/19 06/22/19 Range/Units 17:08 18:00 18:08 WBC 11.3 H (3.8-10.6) k/uL Hgb 9.8 L (11.4-16.0) gm/dL Hct 31.7 L (34.0-46.0) % MCH (25.0-35.0) pg MCHC 30.9 L (31.0-37.0) g/dL Neutrophils # 10.1 H (1.3-7.7) k/uL Lymphocytes # 0.7 L (1.0-4.8) k/uL ABG pO2 (83-108) mmHg ABG HCO3 (21-25) mmol/L ABG Total CO2 (19-24) mmol/L ABG O2 Saturation (94-97) % ABG Hematocrit (34.0-46.0) % ABG Ionized Calcium (4.5-5.3) mg/dL ABG Glucose (75-99) mg/dL Hemoglobin (11.4-16.0) gm/dL Chloride (98-107) mmol/L Creatinine (0.52-1.04) mg/dL Glucose (74-99) mg/dL POC Glucose (mg/dL) 203 H 197 H (75-99) mg/dL Calcium (8.4-10.2) mg/dL Total Protein (6.3-8.2) g/dL Albumin (3.5-5.0) g/dL Arterial Blood Glucose (75-99) mg/dL Crossmatch 06/22/19 06/22/19 06/22/19 Range/Units 18:48 19:07 20:11 WBC (3.8-10.6) k/uL Hgb (11.4-16.0) gm/dL Hct (34.0-46.0) % MCH (25.0-35.0) pg MCHC (31.0-37.0) g/dL Neutrophils # (1.3-7.7) k/uL Lymphocytes # (1.0-4.8) k/uL ABG pO2 128 H (83-108) mmHg ABG HCO3 (21-25) mmol/L ABG Total CO2 (19-24) mmol/L ABG O2 Saturation 98.8 H (94-97) % ABG Hematocrit (34.0-46.0) % ABG Ionized Calcium (4.5-5.3) mg/dL ABG Glucose (75-99) mg/dL Hemoglobin (11.4-16.0) gm/dL Chloride (98-107) mmol/L Creatinine (0.52-1.04) mg/dL Glucose (74-99) mg/dL POC Glucose (mg/dL) 173 H 156 H (75-99) mg/dL Calcium (8.4-10.2) mg/dL Total Protein (6.3-8.2) g/dL Albumin (3.5-5.0) g/dL Arterial Blood Glucose (75-99) mg/dL Crossmatch 06/22/19 06/22/19 06/22/19 Range/Units 21:08 21:40 22:12 WBC (3.8-10.6) k/uL Hgb (11.4-16.0) gm/dL Hct (34.0-46.0) % MCH (25.0-35.0) pg MCHC (31.0-37.0) g/dL Neutrophils # (1.3-7.7) k/uL Lymphocytes # (1.0-4.8) k/uL ABG pO2 (83-108) mmHg ABG HCO3 (21-25) mmol/L ABG Total CO2 (19-24) mmol/L ABG O2 Saturation (94-97) % ABG Hematocrit (34.0-46.0) % ABG Ionized Calcium (4.5-5.3) mg/dL ABG Glucose (75-99) mg/dL Hemoglobin (11.4-16.0) gm/dL Chloride (98-107) mmol/L Creatinine 0.40 L (0.52-1.04) mg/dL Glucose 146 H (74-99) mg/dL POC Glucose (mg/dL) 157 H 141 H (75-99) mg/dL Calcium 8.2 L (8.4-10.2) mg/dL Total Protein (6.3-8.2) g/dL Albumin (3.5-5.0) g/dL Arterial Blood Glucose (75-99) mg/dL Crossmatch 06/22/19 06/23/19 06/23/19 Range/Units 23:00 00:17 01:04 WBC (3.8-10.6) k/uL Hgb (11.4-16.0) gm/dL Hct (34.0-46.0) % MCH (25.0-35.0) pg MCHC (31.0-37.0) g/dL Neutrophils # (1.3-7.7) k/uL Lymphocytes # (1.0-4.8) k/uL ABG pO2 (83-108) mmHg ABG HCO3 (21-25) mmol/L ABG Total CO2 (19-24) mmol/L ABG O2 Saturation (94-97) % ABG Hematocrit (34.0-46.0) % ABG Ionized Calcium (4.5-5.3) mg/dL ABG Glucose (75-99) mg/dL Hemoglobin (11.4-16.0) gm/dL Chloride (98-107) mmol/L Creatinine (0.52-1.04) mg/dL Glucose (74-99) mg/dL POC Glucose (mg/dL) 125 H 116 H 106 H (75-99) mg/dL Calcium (8.4-10.2) mg/dL Total Protein (6.3-8.2) g/dL Albumin (3.5-5.0) g/dL Arterial Blood Glucose (75-99) mg/dL Crossmatch 06/23/19 06/23/19 06/23/19 Range/Units 02:07 03:09 04:06 WBC (3.8-10.6) k/uL Hgb (11.4-16.0) gm/dL Hct (34.0-46.0) % MCH (25.0-35.0) pg MCHC (31.0-37.0) g/dL Neutrophils # (1.3-7.7) k/uL Lymphocytes # (1.0-4.8) k/uL ABG pO2 (83-108) mmHg ABG HCO3 (21-25) mmol/L ABG Total CO2 (19-24) mmol/L ABG O2 Saturation (94-97) % ABG Hematocrit (34.0-46.0) % ABG Ionized Calcium (4.5-5.3) mg/dL ABG Glucose (75-99) mg/dL Hemoglobin (11.4-16.0) gm/dL Chloride (98-107) mmol/L Creatinine (0.52-1.04) mg/dL Glucose (74-99) mg/dL POC Glucose (mg/dL) 101 H 123 H 127 H (75-99) mg/dL Calcium (8.4-10.2) mg/dL Total Protein (6.3-8.2) g/dL Albumin (3.5-5.0) g/dL Arterial Blood Glucose (75-99) mg/dL Crossmatch 06/23/19 06/23/19 06/23/19 Range/Units 04:35 04:35 05:09 WBC (3.8-10.6) k/uL Hgb 9.9 L (11.4-16.0) gm/dL Hct 31.4 L (34.0-46.0) % MCH (25.0-35.0) pg MCHC (31.0-37.0) g/dL Neutrophils # 8.3 H (1.3-7.7) k/uL Lymphocytes # 0.7 L (1.0-4.8) k/uL ABG pO2 (83-108) mmHg ABG HCO3 (21-25) mmol/L ABG Total CO2 (19-24) mmol/L ABG O2 Saturation (94-97) % ABG Hematocrit (34.0-46.0) % ABG Ionized Calcium (4.5-5.3) mg/dL ABG Glucose (75-99) mg/dL Hemoglobin (11.4-16.0) gm/dL Chloride (98-107) mmol/L Creatinine 0.44 L (0.52-1.04) mg/dL Glucose 146 H (74-99) mg/dL POC Glucose (mg/dL) 117 H (75-99) mg/dL Calcium 8.1 L (8.4-10.2) mg/dL Total Protein 5.8 L (6.3-8.2) g/dL Albumin 3.2 L (3.5-5.0) g/dL Arterial Blood Glucose (75-99) mg/dL Crossmatch 06/23/19 06/23/19 06/23/19 Range/Units 06:03 06:49 08:07 WBC (3.8-10.6) k/uL Hgb (11.4-16.0) gm/dL Hct (34.0-46.0) % MCH (25.0-35.0) pg MCHC (31.0-37.0) g/dL Neutrophils # (1.3-7.7) k/uL Lymphocytes # (1.0-4.8) k/uL ABG pO2 (83-108) mmHg ABG HCO3 (21-25) mmol/L ABG Total CO2 (19-24) mmol/L ABG O2 Saturation (94-97) % ABG Hematocrit (34.0-46.0) % ABG Ionized Calcium (4.5-5.3) mg/dL ABG Glucose (75-99) mg/dL Hemoglobin (11.4-16.0) gm/dL Chloride (98-107) mmol/L Creatinine (0.52-1.04) mg/dL Glucose (74-99) mg/dL POC Glucose (mg/dL) 120 H 124 H 140 H (75-99) mg/dL Calcium (8.4-10.2) mg/dL Total Protein (6.3-8.2) g/dL Albumin (3.5-5.0) g/dL Arterial Blood Glucose (75-99) mg/dL Crossmatch 06/23/19 Range/Units 09:00 WBC (3.8-10.6) k/uL Hgb (11.4-16.0) gm/dL Hct (34.0-46.0) % MCH (25.0-35.0) pg MCHC (31.0-37.0) g/dL Neutrophils # (1.3-7.7) k/uL Lymphocytes # (1.0-4.8) k/uL ABG pO2 (83-108) mmHg ABG HCO3 (21-25) mmol/L ABG Total CO2 (19-24) mmol/L ABG O2 Saturation (94-97) % ABG Hematocrit (34.0-46.0) % ABG Ionized Calcium (4.5-5.3) mg/dL ABG Glucose (75-99) mg/dL Hemoglobin (11.4-16.0) gm/dL Chloride (98-107) mmol/L Creatinine (0.52-1.04) mg/dL Glucose (74-99) mg/dL POC Glucose (mg/dL) 133 H (75-99) mg/dL Calcium (8.4-10.2) mg/dL Total Protein (6.3-8.2) g/dL Albumin (3.5-5.0) g/dL Arterial Blood Glucose (75-99) mg/dL Crossmatch - Imaging and Cardiology Chest x-ray: report reviewed, image reviewed Assessment and Plan Assessment: 1. Coronary arterial sclerosis, status post four-vessel coronary artery bypass grafting surgery 2. Uncontrolled insulin-dependent diabetes mellitus with a preoperative hemoglobin A1c of 12.4 3. History of hypertension 4. Hyperlipidemia 5. Asthma 6. Obstructive sleep apnea with home CPAP use 7. Morbid obesity with an admission BMI of 56 8. Remote history of pneumonia 9. Family history of diabetes and hypertension 10. Postoperative acute blood loss anemia, an expected outcome Plan: 1. Continue to maximize medical therapy with aspirin, Plavix, statin, beta gregorio. We will increase her metoprolol tartrate 25 mg by mouth twice a day. 2. Bronchodilators management per pulmonary medicine. Wean oxygen as tolerated. 3. Encourage increase in activity. Physical therapy, occupational therapy and cardiac rehabilitation following. 4. Encourage use of her incentive spirometry every hour while awake. 5. Medical management, Insulin management and other comorbidities management per primary care service. 6. Lasix 20 mg IV 1 now. 7. continue GI and DVT prophylaxis. 8. Discontinue Taylor-Tobias catheter keep a right IJ Cordis in place to continue CVP monitoring. 9. Keep mediastinal and left pleural chest tubes in place to low continuous wall suction -20 cm H2O. 10. The patient was restarted on her home dose of Singulair. 11. Discontinue nitroglycerin drip. 12. We will initiate Cardizem 30 mg by mouth every 6 hours for radial artery spasm prophylaxis. Discontinue Cardizem drip. 13. Continue surgical support bra, continue to encourage use of her heart hugger. 14. Keep Argueta catheter and left arm LOLI drain in today. 15. Discontinue [place] due to the patient's sedation, we will start the patient on acetaminophen 1000 mg by mouth every 6 hours when necessary pain and Toradol 15 mg IVP every 6 hours. 16. Continue to follow daily labs and chest x-rays. 17. More recommendations to follow based on patient's clinical course. Time with Patient: Greater than 30
--- NOTE | 2019-06-23 11:00 | CONS ---
CONSULTATION This is a 53-year-old obese lady with type 2 diabetes, which is not under good control, bronchial asthma, COPD under the care of Dr. Isis Delvalle. Because of her symptoms of chest tightness and pressure, she was recently hospitalized and subsequent stress test was abnormal and on 06/14/2019, I performed a cardiac cath from right radial approach and the study revealed triple-vessel disease with a 60% to 80% mid RCA disease of a very dominant vessel. She also had a circumflex groove branch that was diffusely diseased and LAD had a long calcified lesion of 60% to 80% in the mid segment. She was advised bypass surgery that was performed yesterday by Dr. Sammy Montanez. She received a HERNDON to LAD and sequentially to the diagonal also. A free radial artery graft was placed to the obtuse marginal branch of circumflex and an SVG was placed to the PDA of RCA. She has been extubated. She is not on any pressors. She is actually doing well. Complains of some nausea. Hemodynamically stable. Making decent urine. PAST MEDICAL HISTORY: 1. Type 2 diabetes. 2. Obesity. 3. Probable sleep apnea with underlying COPD and bronchial asthma. Please refer to my detailed consultation and a cardiac cath report. PHYSICAL EXAMINATION: On examination, blood pressure is 120/70, pulse rate is about 100 per minute, regular. HEENT: Unremarkable. Fundus was not examined by me. Neck is supple. There is JVD of 1 cm. No carotid bruit. S1, S2 heard normally. Heart sounds heard distantly. Short systolic murmur is audible. Lungs reveal bilateral fair air entry. Abdomen is soft A lower extremity examination was not performed. IMPRESSION: 1. Status post bypass surgery, recovering well. 2. Type 2 diabetes mellitus being managed by the ase certified technician. 3. Hypertension. 4. Type 2 diabetes. 5. History of chronic obstructive pulmonary disease and bronchial asthma. RECOMMENDATIONS: For now we will continue her current medications, incentive spirometry and pulmonary toilet. She is on a small dose of beta gregorio, which I think is reasonable at this time. Thank you very much for the consult. MMODL / IJN: [id number] /
--- NOTE | 2019-06-23 11:17 | PN ---
PROGRESS NOTE She was seen on 06/23/2019. She was extubated yesterday. She is sleepy, but arousable. She follows commands. Her IS had been 750, but had been down to 500 this morning. PHYSICAL EXAMINATION: On physical examination, her respiratory rate is 39, pulse rate of 112, blood pressure 96/70. PA pressures are 30/14. She had received a dose of Lasix. HEENT reveals pupils are equal. Chest reveals diminished breath sounds bilaterally, has a faint wheeze only on forced exhalation. Cardiovascular system reveals an S1, S2. No S3. Abdomen is soft. There is 1+ pedal edema. LABS: Labs reveal a white count of 9.6, hemoglobin of 9.9, sodium 139, potassium 4, chloride 106, bicarb 25, BUN 9, creatinine 0.44, glucose 144. IMPRESSION AT THIS TIME: 1. Coronary artery disease, status post coronary artery bypass. 2. Severe asthma with an element of fixed airway obstruction. 3. Obstructive sleep apnea. 4. Obesity. 5. Diabetes mellitus type 2. At this point in time, encourage deep coughing as well as incentive spirometry. Keep her on aerosolized steroids, Singulair, and bronchodilators. Hopefully, we are able to avoid systemic steroids. Depending on how she does, we should make further changes to her care. She was counseled regarding her condition and this approach. Her medications were reviewed. MMODL / IJN: [id number] /
[2019-06-23 11:24] LABS: Glucose,Whole Blood 113 mg/dL (75-99)
[2019-06-23] MEDS ORDERED: DEXTROSE 10 % IN WATER 250 ML IV ONE (11:44)
[2019-06-23 12:19] LABS: Glucose,Whole Blood 159 mg/dL (75-99)
[2019-06-23] MEDS: ACETAMINOPHEN TAB 500 MG TAB PO PRN (13:48)
--- NOTE | 2019-06-23 14:01 | P.PN ---
Subjective Progress Note Date: 06/23/19 Principal diagnosis: Status post CABG, postoperative day #1, This is a 53-year-old -[place] female, history of multiple medical problems including asthma, type 2 diabetes, recently admitted to the hospital on 04/18/2019, and she was discharged on 04/19/2019. Patient was admitted with mostly shortness of breath and wheezing. Patient was treated mostly for bronchial asthma exacerbation, underwent CT angiogram of the chest, and it showed significant coronary artery calcifications. Her d-dimer at the time was 0.75, troponin was less than 0.012, patient was treated mostly for asthma exacerbation, however she was seen by cardiology on consultation, and recommended outpatient workup for her coronary artery calcification. Apparently since discharge, the patient underwent cardiac catheterization on 06/14/2019, and she was found to have triple-vessel coronary artery disease with significant disease in mid segment of the RCA and 60% lesion in the proximal and midportion of the LAD and the branch of the circumflex was diffusely diseased. Diagonal branch of the LAD had significant disease. Hence the patient was advised to undergo coronary artery bypass surgery. I was asked to see the patient on consultation postoperatively today, patient normally sees Dr. Stephanie jaeger for her asthma. However he does not have ICU privileges, therefore I was asked to see her for ICU management. Presently the patient is on mechanical ventilation, she is on assist control mode rate of 14. Tidal volume is 490, PEEP is 10, and FiO2 is 100%. ABG showed a pO2 of more than 400 pCO2 of 40 pH of 7.37. Hence her FiO2 will be cut down to 45%, and we will eventually cut down the PEEP from 10 to 5. Postoperative chest x-ray showed endotracheal tube in the proper position. Mild interstitial changes noted, no evidence of pneumothorax, and in no evidence of infiltrate. Small tiny pleural effusions noted. Bilateral hilar fullness noted, however recent CT of the chest showed no evidence of by hilar lymphadenopathy. Reevaluated today on 06/23/2019, patient remains in the ICU, she was extubated last night. Hours after her surgery. Patient is hemodynamically stable. Her cardiac index is 2.9, PA pressure is 28/12 CVP is 12. She is presently on Cardizem drip at 5 mg per hour. She is on 4 L nasal cannula with O2 saturation 96%. She is definitely doing poorly with incentive spirometry, but that will likely improve over the next 24 hours. Mediastinal and left pleural chest tubes are in place to low continuous wall suction no air leak is noted. Had 450 ML of serosanguineous drainage since surgery. Patient seems to be comfortable, opens eyes with verbal stimuli, but she seems to be very tired. She was taken off insulin early this morning. Sugars are running in in the 120 range. Labs were reviewed. Sat is 9.6 hemoglobin is 9.9. Electrolytes and renal profile are normal. Chest x-ray showed mostly bibasilar atelectasis and small bilateral pleural effusions. Objective - Vital Signs Vital signs: Vital Signs Temp 97.8 F 06/23/19 12:00 Pulse 104 H 06/23/19 12:55 Resp 22 06/23/19 12:00 BP 114/70 06/23/19 12:00 Pulse Ox 98 06/23/19 12:00 Intake & Output 06/22/19 06/23/19 06/23/19 18:59 06:59 18:59 Intake Total 654.090 2022.665 301.000 Output Total 1638 1045 715 Balance -969.685 51.665 -414.000 Weight 171.9 kg Intake: IV 666 720 280 Albumin 500 Injectate 60 120 30 LR 100 600 250 Intake, IV Titration 2.315 376.665 21.000 Amount ACETAMINOPHEN IV (For NPO 100 ) 1,000 mg In Empty Bag 1 bag @ 400 mls/hr IVPB Q6HR [facility] Rx#:[id number] Diltiazem 125 mg In 31.417 Sodium Chloride 0.9% 100 ml @ 5 MG/HR 5 mls/hr IV .Q24H [facility] Rx#:[id number] Insulin Regular 100 unit 2.315 45.248 21.000 In Sodium Chloride 0.9% 100 ml @ Per Protocol IV .Q0M [facility] Rx#:[id number] Magnesium Sulfate-D5w Pmx 100 1 gm In Dextrose/Water 1 100ml.bag @ 100 mls/hr IVPB Q1H [facility] Rx#: [id number] ceFAZolin 3 gm In Sodium 100 Chloride 0.9% 100 ml @ 100 mls/hr IVPB Q8HR [facility] Rx#:[id number] Output: Chest Tube Drainage 78 260 160 Mediastinal/Left Pleural 78 260 160 Drainage 30 Left Wrist 30 Urine 1060 755 555 Estimated Blood Loss 500 Other: Voiding Method Indwelling Catheter Indwelling Catheter Indwelling Catheter ABP, PAP, CO, CI - Last Documented Arterial Blood Pressure 99/62 Pulmonary Artery Pressure 43/26 Cardiac Output 6.3 Cardiac Index 2.4 - Exam Physical Exam: Revealed a 53-year-old -[place] female, obese, on nasal cannula, off mechanical ventilation. Head: Atraumatic normocephalic. HEENT:[Neck is supple.] [No neck masses.] [No thyromegaly.] [No JVD.] PERRLA, EOMI, no icterus. Chest: [Diminished breath sounds at the bases, no crackles, no rhonchi and no wheezes. Symmetrical chest expansion is noted, left sided chest tube is noted. Cardiac Exam: [Normal S1 and S2, no S3 gallop, no murmur.] Positive pericardial rub. Abdomen: [Obese, Soft, nontender, no megaly, no rebound, no guarding, diminished bowel sounds] Extremities: [No clubbing, trace of bipedal edema, no cyanosis.] Good pulses bilaterally, both lower extremities are wrapped with Slade wrappings. Neurological Exam: Alert and oriented 3, no gross focal neurologic deficits. Psychiatric: Blunted affect, normal mental status examination.. Lymphatics: No lymphadenopathy. Skin: No rashes. - Labs CBC & Chem 7: 06/23/19 04:35 06/23/19 04:35 Labs: Abnormal Lab Results - Last 24 Hours (Table) 06/14/19 06/22/19 06/22/19 Range/Units 10:26 14:13 14:14 WBC (3.8-10.6) k/uL Hgb 9.4 L D (11.4-16.0) gm/dL Hct 30.8 L (34.0-46.0) % MCH 24.7 L (25.0-35.0) pg MCHC 30.4 L (31.0-37.0) g/dL Neutrophils # (1.3-7.7) k/uL Lymphocytes # (1.0-4.8) k/uL ABG pO2 (83-108) mmHg ABG O2 Saturation (94-97) % Chloride (98-107) mmol/L Creatinine (0.52-1.04) mg/dL Glucose (74-99) mg/dL POC Glucose (mg/dL) 147 H (75-99) mg/dL Calcium (8.4-10.2) mg/dL Total Protein (6.3-8.2) g/dL Albumin (3.5-5.0) g/dL Crossmatch See Detail 06/22/19 06/22/19 06/22/19 Range/Units 14:14 14:56 15:01 WBC (3.8-10.6) k/uL Hgb (11.4-16.0) gm/dL Hct (34.0-46.0) % MCH (25.0-35.0) pg MCHC (31.0-37.0) g/dL Neutrophils # (1.3-7.7) k/uL Lymphocytes # (1.0-4.8) k/uL ABG pO2 >400 H (83-108) mmHg ABG O2 Saturation 100.0 H (94-97) % Chloride 110 H (98-107) mmol/L Creatinine 0.40 L (0.52-1.04) mg/dL Glucose 152 H (74-99) mg/dL POC Glucose (mg/dL) 188 H (75-99) mg/dL Calcium 7.7 L (8.4-10.2) mg/dL Total Protein 5.2 L (6.3-8.2) g/dL Albumin 2.8 L (3.5-5.0) g/dL Crossmatch 06/22/19 06/22/19 06/22/19 Range/Units 16:24 17:08 18:00 WBC 11.3 H (3.8-10.6) k/uL Hgb 9.8 L (11.4-16.0) gm/dL Hct 31.7 L (34.0-46.0) % MCH (25.0-35.0) pg MCHC 30.9 L (31.0-37.0) g/dL Neutrophils # 10.1 H (1.3-7.7) k/uL Lymphocytes # 0.7 L (1.0-4.8) k/uL ABG pO2 (83-108) mmHg ABG O2 Saturation (94-97) % Chloride (98-107) mmol/L Creatinine (0.52-1.04) mg/dL Glucose (74-99) mg/dL POC Glucose (mg/dL) 207 H 203 H (75-99) mg/dL Calcium (8.4-10.2) mg/dL Total Protein (6.3-8.2) g/dL Albumin (3.5-5.0) g/dL Crossmatch 06/22/19 06/22/19 06/22/19 Range/Units 18:08 18:48 19:07 WBC (3.8-10.6) k/uL Hgb (11.4-16.0) gm/dL Hct (34.0-46.0) % MCH (25.0-35.0) pg MCHC (31.0-37.0) g/dL Neutrophils # (1.3-7.7) k/uL Lymphocytes # (1.0-4.8) k/uL ABG pO2 128 H (83-108) mmHg ABG O2 Saturation 98.8 H (94-97) % Chloride (98-107) mmol/L Creatinine (0.52-1.04) mg/dL Glucose (74-99) mg/dL POC Glucose (mg/dL) 197 H 173 H (75-99) mg/dL Calcium (8.4-10.2) mg/dL Total Protein (6.3-8.2) g/dL Albumin (3.5-5.0) g/dL Crossmatch 06/22/19 06/22/19 06/22/19 Range/Units 20:11 21:08 21:40 WBC (3.8-10.6) k/uL Hgb (11.4-16.0) gm/dL Hct (34.0-46.0) % MCH (25.0-35.0) pg MCHC (31.0-37.0) g/dL Neutrophils # (1.3-7.7) k/uL Lymphocytes # (1.0-4.8) k/uL ABG pO2 (83-108) mmHg ABG O2 Saturation (94-97) % Chloride (98-107) mmol/L Creatinine 0.40 L (0.52-1.04) mg/dL Glucose 146 H (74-99) mg/dL POC Glucose (mg/dL) 156 H 157 H (75-99) mg/dL Calcium 8.2 L (8.4-10.2) mg/dL Total Protein (6.3-8.2) g/dL Albumin (3.5-5.0) g/dL Crossmatch 06/22/19 06/22/19 06/23/19 Range/Units 22:12 23:00 00:17 WBC (3.8-10.6) k/uL Hgb (11.4-16.0) gm/dL Hct (34.0-46.0) % MCH (25.0-35.0) pg MCHC (31.0-37.0) g/dL Neutrophils # (1.3-7.7) k/uL Lymphocytes # (1.0-4.8) k/uL ABG pO2 (83-108) mmHg ABG O2 Saturation (94-97) % Chloride (98-107) mmol/L Creatinine (0.52-1.04) mg/dL Glucose (74-99) mg/dL POC Glucose (mg/dL) 141 H 125 H 116 H (75-99) mg/dL Calcium (8.4-10.2) mg/dL Total Protein (6.3-8.2) g/dL Albumin (3.5-5.0) g/dL Crossmatch 06/23/19 06/23/19 06/23/19 Range/Units 01:04 02:07 03:09 WBC (3.8-10.6) k/uL Hgb (11.4-16.0) gm/dL Hct (34.0-46.0) % MCH (25.0-35.0) pg MCHC (31.0-37.0) g/dL Neutrophils # (1.3-7.7) k/uL Lymphocytes # (1.0-4.8) k/uL ABG pO2 (83-108) mmHg ABG O2 Saturation (94-97) % Chloride (98-107) mmol/L Creatinine (0.52-1.04) mg/dL Glucose (74-99) mg/dL POC Glucose (mg/dL) 106 H 101 H 123 H (75-99) mg/dL Calcium (8.4-10.2) mg/dL Total Protein (6.3-8.2) g/dL Albumin (3.5-5.0) g/dL Crossmatch 06/23/19 06/23/19 06/23/19 Range/Units 04:06 04:35 04:35 WBC (3.8-10.6) k/uL Hgb 9.9 L (11.4-16.0) gm/dL Hct 31.4 L (34.0-46.0) % MCH (25.0-35.0) pg MCHC (31.0-37.0) g/dL Neutrophils # 8.3 H (1.3-7.7) k/uL Lymphocytes # 0.7 L (1.0-4.8) k/uL ABG pO2 (83-108) mmHg ABG O2 Saturation (94-97) % Chloride (98-107) mmol/L Creatinine 0.44 L (0.52-1.04) mg/dL Glucose 146 H (74-99) mg/dL POC Glucose (mg/dL) 127 H (75-99) mg/dL Calcium 8.1 L (8.4-10.2) mg/dL Total Protein 5.8 L (6.3-8.2) g/dL Albumin 3.2 L (3.5-5.0) g/dL Crossmatch 06/23/19 06/23/19 06/23/19 Range/Units 05:09 06:03 06:49 WBC (3.8-10.6) k/uL Hgb (11.4-16.0) gm/dL Hct (34.0-46.0) % MCH (25.0-35.0) pg MCHC (31.0-37.0) g/dL Neutrophils # (1.3-7.7) k/uL Lymphocytes # (1.0-4.8) k/uL ABG pO2 (83-108) mmHg ABG O2 Saturation (94-97) % Chloride (98-107) mmol/L Creatinine (0.52-1.04) mg/dL Glucose (74-99) mg/dL POC Glucose (mg/dL) 117 H 120 H 124 H (75-99) mg/dL Calcium (8.4-10.2) mg/dL Total Protein (6.3-8.2) g/dL Albumin (3.5-5.0) g/dL Crossmatch 06/23/19 06/23/19 06/23/19 Range/Units 08:07 09:00 09:58 WBC (3.8-10.6) k/uL Hgb (11.4-16.0) gm/dL Hct (34.0-46.0) % MCH (25.0-35.0) pg MCHC (31.0-37.0) g/dL Neutrophils # (1.3-7.7) k/uL Lymphocytes # (1.0-4.8) k/uL ABG pO2 (83-108) mmHg ABG O2 Saturation (94-97) % Chloride (98-107) mmol/L Creatinine (0.52-1.04) mg/dL Glucose (74-99) mg/dL POC Glucose (mg/dL) 140 H 133 H 127 H (75-99) mg/dL Calcium (8.4-10.2) mg/dL Total Protein (6.3-8.2) g/dL Albumin (3.5-5.0) g/dL Crossmatch 06/23/19 06/23/19 Range/Units 11:09 12:05 WBC (3.8-10.6) k/uL Hgb (11.4-16.0) gm/dL Hct (34.0-46.0) % MCH (25.0-35.0) pg MCHC (31.0-37.0) g/dL Neutrophils # (1.3-7.7) k/uL Lymphocytes # (1.0-4.8) k/uL ABG pO2 (83-108) mmHg ABG O2 Saturation (94-97) % Chloride (98-107) mmol/L Creatinine (0.52-1.04) mg/dL Glucose (74-99) mg/dL POC Glucose (mg/dL) 113 H 159 H (75-99) mg/dL Calcium (8.4-10.2) mg/dL Total Protein (6.3-8.2) g/dL Albumin (3.5-5.0) g/dL Crossmatch Assessment and Plan Assessment: Impression: 1 Status post CABG, postoperative day #1. Patient had off-pump CABG 4 with sequential HERNDON to diagonal and LAD, left radial artery to obtuse margin, SVG to PDA and she had clipping of the left atrial appendage. Patient was extubated successfully around 8 PM last night. 2 history of mild intermittent asthma, presently inactive, however the patient will be placed on DuoNeb updrafts 4 times a day and when necessary. 3 morbid obesity 4 type 2 diabetes 5 seasonal ALLERGIC rhinitis. 6 history of obstructive sleep apnea syndrome uses CPAP at home. 7 benign essential hypertension 8 mixed hyperlipidemia 9 postoperative atelectasis, expected post surgery. Patient was advised to continue incentive spirometry. Recommendation: Continue aspirin, Plavix, statins, and beta blockers. Continue bronchodilators including updrafts, Pulmicort, and Singulair. No need for systemic steroids at this point. Continue incentive spirometer. Continue GI and DVT prophylaxis. Continue chest tube to low suction. Continue surgical supportive bra and encouraged the use of the heart hugger. Continue to follow daily labs and x-rays. Considering the patient is now being seen by her cyber policy and strategy planner, I will sign off and see the patient on when necessary basis. Time with Patient: Less than 30
[2019-06-23 15:40] LABS: Glucose,Whole Blood 214 mg/dL (75-99)
[2019-06-23 17:06] LABS: Glucose,Whole Blood 200 mg/dL (75-99)
[2019-06-23 18:03] LABS: Glucose,Whole Blood 166 mg/dL (75-99)
[2019-06-23 19:05] LABS: Glucose,Whole Blood 121 mg/dL (75-99)
[2019-06-23 20:01] LABS: Glucose,Whole Blood 125 mg/dL (75-99)
--- NOTE | 2019-06-23 20:01 | P.PN ---
Subjective Progress Note Date: 06/23/19 (Delayed charting seen at 0830 am) Principal diagnosis: Exertional dyspnea Patient is a 53-year-old -[place] female with a past medical history of diabetes mellitus type 2 insulin-dependent poorly controlled with A1c of 12.4, morbid obesity with BMI of 56.7, hypertension, dyslipidemia, asthma, and chronic pain who presented for elective quadruple bypass. Patient had initially presented here 04/18 with shortness of breath was treated for asthma exacerbation and outpatient cardiac workup was recommended once wheezing was better controlled. She ultimately underwent cardiac catheterization on 06/14 was found have triple-vessel coronary artery disease and coronary artery bypass grafting was recommended. Patient does follow with Dr. Delvalle for her asthma. Patient underwent four-vessel bypass surgery on 06/[address] Montanez resulting in a HERNDON to the diagonal and LAD, left radial artery to the OM, SVG to the PDA, along with clipping of the left atrial appendage. She had 2 episode of intraop a fib requiring cardioversion. She was extubated the same day as her procedure 06/22. Patient seen and examined at bedside. She was very sleepy and has a hard time staying awake and engaging in conversation. She has not recently received any IV narcotics. She denies any chest pain or shortness of breath. Denies any nausea. Daughter present at bedside and discussed trying to keep her sugars slightly above her typical for open heart surgery. She was as relative hy poglycemia and her hemoglobin A1c is 12.4 equivalent to an average blood sugar approximately 300. Objective - Vital Signs Vital signs: Vital Signs Temp 98.2 F 06/23/19 16:00 Pulse 101 H 06/23/19 19:00 Resp 19 06/23/19 19:00 BP 107/58 06/23/19 19:00 Pulse Ox 97 06/23/19 19:00 Intake & Output 06/23/19 06/23/19 06/24/19 06:59 18:59 06:59 Intake Total 1096.665 569.396 36.649 Output Total 1045 985 250 Balance 51.665 -415.604 -213.351 Weight 171.9 kg Intake: IV 720 510 30 Injectate 120 30 LR 600 480 30 Intake, IV Titration 376.665 59.396 6.649 Amount ACETAMINOPHEN IV (For NPO 100 ) 1,000 mg In Empty Bag 1 bag @ 400 mls/hr IVPB Q6HR [facility] Rx#:[id number] Diltiazem 125 mg In 31.417 Sodium Chloride 0.9% 100 ml @ 5 MG/HR 5 mls/hr IV .Q24H [facility] Rx#:[id number] Insulin Regular 100 unit 45.248 59.396 6.649 In Sodium Chloride 0.9% 100 ml @ Per Protocol IV .Q0M [facility] Rx#:[id number] Magnesium Sulfate-D5w Pmx 100 1 gm In Dextrose/Water 1 100ml.bag @ 100 mls/hr IVPB Q1H [facility] Rx#: [id number] ceFAZolin 3 gm In Sodium 100 Chloride 0.9% 100 ml @ 100 mls/hr IVPB Q8HR [facility] Rx#:[id number] Output: Chest Tube Drainage 260 180 Mediastinal/Left Pleural 260 180 Drainage 30 Left Wrist 30 Urine 755 805 250 Other: Voiding Method Indwelling Catheter Indwelling Catheter ABP, PAP, CO, CI - Last Documented Arterial Blood Pressure 99/62 Pulmonary Artery Pressure 32/19 Cardiac Output 6.3 Cardiac Index 2.4 - Exam General: non toxic, mild distress, morbidly obese, appears older than stated age Derm: Dressings in place bilateral lower extremities, warm, dry Head: atraumatic, normocephalic, symmetric Eyes: EOMI, no lid lag, anicteric sclera Mouth: no lip lesion, mucus membranes moist Cardiovascular: S1-S2 irregular, no murmur, Lungs: Decreased breath sounds bilateral, no rhonchi, no rales , no accessory muscle use Abdominal: soft, nontender to palpation, no guarding, no appreciable organomegaly Ext: no gross muscle atrophy, no edema, no contractures Neuro: CN II-XI grossly intact, no focal neuro deficits Psych: Somnolent, appropriately answers questions when awake, appropriate affect - Labs CBC & Chem 7: 06/23/19 04:35 06/23/19 04:35 Labs: Abnormal Lab Results - Last 24 Hours (Table) 06/14/19 06/22/19 06/22/19 Range/Units 10:26 20:11 21:08 Hgb (11.4-16.0) gm/dL Hct (34.0-46.0) % Neutrophils # (1.3-7.7) k/uL Lymphocytes # (1.0-4.8) k/uL Creatinine (0.52-1.04) mg/dL Glucose (74-99) mg/dL POC Glucose (mg/dL) 156 H 157 H (75-99) mg/dL Calcium (8.4-10.2) mg/dL Total Protein (6.3-8.2) g/dL Albumin (3.5-5.0) g/dL Crossmatch See Detail 06/22/19 06/22/19 06/22/19 Range/Units 21:40 22:12 23:00 Hgb (11.4-16.0) gm/dL Hct (34.0-46.0) % Neutrophils # (1.3-7.7) k/uL Lymphocytes # (1.0-4.8) k/uL Creatinine 0.40 L (0.52-1.04) mg/dL Glucose 146 H (74-99) mg/dL POC Glucose (mg/dL) 141 H 125 H (75-99) mg/dL Calcium 8.2 L (8.4-10.2) mg/dL Total Protein (6.3-8.2) g/dL Albumin (3.5-5.0) g/dL Crossmatch 06/23/19 06/23/19 06/23/19 Range/Units 00:17 01:04 02:07 Hgb (11.4-16.0) gm/dL Hct (34.0-46.0) % Neutrophils # (1.3-7.7) k/uL Lymphocytes # (1.0-4.8) k/uL Creatinine (0.52-1.04) mg/dL Glucose (74-99) mg/dL POC Glucose (mg/dL) 116 H 106 H 101 H (75-99) mg/dL Calcium (8.4-10.2) mg/dL Total Protein (6.3-8.2) g/dL Albumin (3.5-5.0) g/dL Crossmatch 06/23/19 06/23/19 06/23/19 Range/Units 03:09 04:06 04:35 Hgb 9.9 L (11.4-16.0) gm/dL Hct 31.4 L (34.0-46.0) % Neutrophils # 8.3 H (1.3-7.7) k/uL Lymphocytes # 0.7 L (1.0-4.8) k/uL Creatinine (0.52-1.04) mg/dL Glucose (74-99) mg/dL POC Glucose (mg/dL) 123 H 127 H (75-99) mg/dL Calcium (8.4-10.2) mg/dL Total Protein (6.3-8.2) g/dL Albumin (3.5-5.0) g/dL Crossmatch 06/23/19 06/23/19 06/23/19 Range/Units 04:35 05:09 06:03 Hgb (11.4-16.0) gm/dL Hct (34.0-46.0) % Neutrophils # (1.3-7.7) k/uL Lymphocytes # (1.0-4.8) k/uL Creatinine 0.44 L (0.52-1.04) mg/dL Glucose 146 H (74-99) mg/dL POC Glucose (mg/dL) 117 H 120 H (75-99) mg/dL Calcium 8.1 L (8.4-10.2) mg/dL Total Protein 5.8 L (6.3-8.2) g/dL Albumin 3.2 L (3.5-5.0) g/dL Crossmatch 06/23/19 06/23/19 06/23/19 Range/Units 06:49 08:07 09:00 Hgb (11.4-16.0) gm/dL Hct (34.0-46.0) % Neutrophils # (1.3-7.7) k/uL Lymphocytes # (1.0-4.8) k/uL Creatinine (0.52-1.04) mg/dL Glucose (74-99) mg/dL POC Glucose (mg/dL) 124 H 140 H 133 H (75-99) mg/dL Calcium (8.4-10.2) mg/dL Total Protein (6.3-8.2) g/dL Albumin (3.5-5.0) g/dL Crossmatch 06/23/19 06/23/19 06/23/19 Range/Units 09:58 11:09 12:05 Hgb (11.4-16.0) gm/dL Hct (34.0-46.0) % Neutrophils # (1.3-7.7) k/uL Lymphocytes # (1.0-4.8) k/uL Creatinine (0.52-1.04) mg/dL Glucose (74-99) mg/dL POC Glucose (mg/dL) 127 H 113 H 159 H (75-99) mg/dL Calcium (8.4-10.2) mg/dL Total Protein (6.3-8.2) g/dL Albumin (3.5-5.0) g/dL Crossmatch 06/23/19 06/23/19 06/23/19 Range/Units 15:27 17:02 17:49 Hgb (11.4-16.0) gm/dL Hct (34.0-46.0) % Neutrophils # (1.3-7.7) k/uL Lymphocytes # (1.0-4.8) k/uL Creatinine (0.52-1.04) mg/dL Glucose (74-99) mg/dL POC Glucose (mg/dL) 214 H 200 H 166 H (75-99) mg/dL Calcium (8.4-10.2) mg/dL Total Protein (6.3-8.2) g/dL Albumin (3.5-5.0) g/dL Crossmatch 06/23/19 Range/Units 18:58 Hgb (11.4-16.0) gm/dL Hct (34.0-46.0) % Neutrophils # (1.3-7.7) k/uL Lymphocytes # (1.0-4.8) k/uL Creatinine (0.52-1.04) mg/dL Glucose (74-99) mg/dL POC Glucose (mg/dL) 121 H (75-99) mg/dL Calcium (8.4-10.2) mg/dL Total Protein (6.3-8.2) g/dL Albumin (3.5-5.0) g/dL Crossmatch Assessment and Plan Assessment: Patient is a 53 yo AAF care with elective 4 vessel bypass surgery. Diabetes mellitus type 2 insulin requiring, uncontrolled -Patient still with nausea and vomiting overnight and poor oral intake, maintain insulin gtt, I recommend targeting BS near 180 as patient has an A1C of 12.4 so average blood glucose is 306. She likely will have some feelings of relative hypoglycemia in the 100s. We need to avoid blood sugars less than 70 and acute changes in blood sugars. -Patient typically takes basalgalr 75 units at night and admalog 30 units 3 times a day. I suspect that there is a large component of dietary noncompliance. Base her initial insulin dosing off of her IV insulin requirements and not home insulin requirements in this controlled environment -Follow blood sugars closely -Hemoglobin A1c 12.4 -Consult clinical unit educator -Ideally would benefit form outpatient endocrinology evaluation if able to coordinate Acute blood loss anemia, an anticipated outcome of surgery - follow CBC - Check Fe studies mild intermittent asthma - duoneb - at home on dulera, singulair, and ventolin as needed. Morbid obesity with BMI 56.7 - structured outpatient weight loss VU - home CPAP after extubation HTN - management per cardiovascular surgery. Atherosclerotic coronary artery disease status post 4 vessel bypass surgery -Management per cardiovascular surgery A. fib with RVR -Currently on Cardizem drip -Monitor telemetry -Management per cardiovascular surgery Thank you for allowing us to participate in the care of this patient. Do not hesitate to contact us with questions. Someone can be reached from the [facility] hospitalist group at all hours of the day at [phone]. Dr. Kimble is not currently seeing patients, on discharge can follow-up with Juany Moraes NP and after 07/16 Dr. Stanford will be covering Dr. Kimble's practice.
[2019-06-23] MEDS ORDERED: ALBUMIN HUMAN 5% 500 ML in EMPTY BAG 1 BAG IVPB ONE (20:10)
[2019-06-23] MEDS: AMIODARONE 300 MG in DEXTROSE 5% IN WATER 250 ML IV PRN ×2 (21:18)
[2019-06-23] MEDS: DEXTROSE 5% IN WATER 100 ML with AMIODARONE 150 MG IV PRN (21:18)
[2019-06-23 21:19] LABS: Glucose,Whole Blood 118 mg/dL (75-99)
[2019-06-23 22:01] LABS: Glucose,Whole Blood 117 mg/dL (75-99)
[2019-06-23] MEDS: MONTELUKAST 10 MG TAB PO SCH (22:06)
[2019-06-23] MEDS: SENNOSIDES-DOCUSATE SODIUM 1 EACH TAB PO SCH (22:07)
[2019-06-23 23:30] LABS: Glucose,Whole Blood 133 mg/dL (75-99)
[2019-06-24 00:12] LABS: Glucose,Whole Blood 147 mg/dL (75-99)
[2019-06-24] MEDS: INSULIN REGULAR 100 UNIT in SODIUM CHLORIDE 0.9% 100 ML IV SCH (00:54)
[2019-06-24] MEDS: HEPARIN SODIUM,PORCINE 5,000 UNIT/ML 1 ML VIAL SQ SCH ×4 (01:07→23:02)
[2019-06-24] MEDS: KETOROLAC 30 MG/ML 1 ML VIAL IVP SCH ×5 (01:08→23:12)
[2019-06-24] MEDS: ONDANSETRON 4 MG/2 ML VIAL IVP PRN ×3 (01:09→21:25)
[2019-06-24 01:17] LABS: Glucose,Whole Blood 158 mg/dL (75-99)
[2019-06-24 01:47] LABS: Glucose,Whole Blood 140 mg/dL (75-99)
[2019-06-24 02:04] LABS: Glucose,Whole Blood 158 mg/dL (75-99)
[2019-06-24] MEDS: AMIODARONE 300 MG in DEXTROSE 5% IN WATER 250 ML IV PRN ×4 (02:38→13:21)
[2019-06-24 03:08] LABS: Glucose,Whole Blood 149 mg/dL (75-99)
[2019-06-24 04:07] LABS: Glucose,Whole Blood 135 mg/dL (75-99)
[2019-06-24 05:07] LABS: Glucose,Whole Blood 131 mg/dL (75-99)
[2019-06-24 05:09] LABS: ALT 20 U/L (9-52); AST 34 U/L (14-36); African American GFR (CKD) >90 (>60 ml/min/1.73 sqM); Albumin 3.2 g/dL (3.5-5.0); Alkaline Phosphatase 91 U/L (38-126); Anion Gap 7 mmol/L; Blood Urea Nitrogen 17 mg/dL (7-17); Calcium 8.4 mg/dL (8.4-10.2); Carbon Dioxide 25 mmol/L (22-30); Chloride 106 mmol/L (98-107); Glucose 138 mg/dL (74-99); Magnesium 2.3 mg/dL (1.6-2.3); Potassium 4.3 mmol/L (3.5-5.1); Sodium 138 mmol/L (137-145); Total Bilirubin 0.9 mg/dL (0.2-1.3); Total Protein 5.9 g/dL (6.3-8.2)
[2019-06-24 05:43] LABS: Ionized Calcium 4.9 mg/dL (4.5-5.3)
[2019-06-24] MEDS: IPRATROPIUM-ALBUTEROL 3 ML NEB INHALATION PRN (06:07)
[2019-06-24 06:25] LABS: Basophils # (A) 0.1 k/uL (0-0.2); Basophils % (A) 0 %; Eosinophils # (A) 0.1 k/uL (0-0.7); Eosinophils % (A) 1 %; HCT 29.5 % (34.0-46.0); HGB 8.8 gm/dL (11.4-16.0); Hypochromasia Marked; Lymphocytes # (A) 1.3 k/uL (1.0-4.8); Lymphocytes % (A) 12 %; MCH 25.8 pg (25.0-35.0); MCHC 29.8 g/dL (31.0-37.0); MCV 86.3 fL (80.0-100.0); Mean Platelet Volume 6.6; Monocytes # (A) 0.6 k/uL (0-1.0); Monocytes % (A) 5 %; Neutrophils # (A) 8.8 k/uL (1.3-7.7); Neutrophils % (A) 80 %; Platelet Count 229 k/uL (150-450); RBC 3.42 m/uL (3.80-5.40); RDW 12.9 % (11.5-15.5); WBC 10.9 k/uL (3.8-10.6)
[2019-06-24 06:25] LABS: Glucose,Whole Blood 115 mg/dL (75-99)
[2019-06-24 07:07] LABS: Glucose,Whole Blood 110 mg/dL (75-99)
--- NOTE | 2019-06-24 07:08 | XR ---
EXAMINATION TYPE: XR chest 1V portable DATE OF EXAM: 06/24/2019 HISTORY: Post Operative Cardiac Surgery. REFERENCE: Previous study dated 06/23/2019. FINDINGS: There has been a midline sternotomy. The patient's right internal jugular catheter is no lo nger clearly visible. The heart remains enlarged. There is bibasilar airspace disease. There are bilateral effusions. There continues to be mild vascular congestion. IMPRESSION: CONTINUING BIBASILAR AIRSPACE DISEASE AND BILATERAL EFFUSIONS.
[2019-06-24 07:47] LABS: Glucose,Whole Blood 112 mg/dL (75-99)
[2019-06-24] MEDS ORDERED: DEXTROSE 5% IN WATER 100 ML with AMIODARONE 150 MG IV ONE ×2 (08:00→10:00)
[2019-06-24] MEDS: METOPROLOL TARTRATE 25 MG TAB PO SCH ×3 (08:21→23:53)
[2019-06-24] MEDS: AMIODARONE 200 MG TAB PO SCH ×2 (08:21→20:24)
[2019-06-24] MEDS: ATORVASTATIN 40 MG TAB PO SCH (08:22)
[2019-06-24] MEDS: BUDESONIDE 0.5 MG/2 ML NEBU INHALATION SCH ×2 (08:22→19:53)
[2019-06-24] MEDS: ASPIRIN 325 MG TAB PO SCH (08:22)
[2019-06-24] MEDS: DILTIAZEM ORAL 30 MG TAB PO SCH ×4 (08:22→23:02)
[2019-06-24] MEDS: CLOPIDOGREL 75 MG TAB PO SCH (08:22)
[2019-06-24] MEDS: IPRATROPIUM-ALBUTEROL 3 ML NEB INHALATION SCH ×4 (08:23→19:53)
[2019-06-24] MEDS: PANTOPRAZOLE 40 MG TABLET PO SCH (08:23)
[2019-06-24] MEDS: METOCLOPRAMIDE 5 MG/ML 2 ML VIAL IVP SCH ×4 (08:24→23:03)
[2019-06-24 08:29] LABS: Glucose,Whole Blood 116 mg/dL (75-99)
[2019-06-24 09:04] LABS: Glucose,Whole Blood 139 mg/dL (75-99)
--- NOTE | 2019-06-24 09:09 | P.PN ---
Subjective Progress Note Date: 06/24/19 Principal diagnosis: Coronary arteriosclerosis, history of hypertension, hyperlipidemia, uncontrolled insulin dependent diabetes with hyperglycemia and her preoperative hemoglobin A1c of 12.4, asthma, obstructive sleep apnea with home CPAP use, morbid obesity with a BMI of 56, remote history of pneumonia and family history of diabetes and hypertension. POD #2 off-pump coronary artery bypass grafting surgery 4 vessels with sequential HERNDON to the diagonal coronary artery and left anterior descending coronary artery, a left radial artery to the obtuse marginal coronary artery, a reverse saphenous vein graft to the PDA with an endovascular harvesting of the left radial artery and greater saphenous vein. Clipping of the left atrial appendage using a 35 mm Atriclip. Postoperative acute blood loss anemia, an expected outcome of surgery due to hemodilution. Postoperative paroxysmal atrial fibrillation, an unexpected but potential outcome of surgery. The patient is sitting up to the bedside chair in the intensive care unit. She is in no acute distress. She is complaining of surgical type pain rating her pain 6 out of 10 on the pain scale. Denies any complaints of shortness of breath. Her nurse from the shift stacker reports she had 2 episodes of emesis. She denies any complaints of nausea at this time. Early this morning the patient went into atrial fibrillation with RVR and amiodarone drip per protocol was initiated. She is currently on 3 L nasal cannula with oxygen saturations 97% and she is achieving 750 mL on her incentive spirometry with encouragement. Her mediastinal and left pleural chest tubes were discontinued yesterday. Her labs this morning show a WBC count 10.9, hemoglobin 8.8, platelets 229, BUN 17, creatinine 0.77. Argueta catheter remains in place for accurate I&O and is draining clear sofya urine. She is opening up her eyes with verbal stimuli, although during conversation with the patient she is falling asleep. Left hand warm to touch. Knee-high sequential compression devices in place to bilateral lower extremities. Right IJ cordis remains in place and functioning. Lasix 20 mg IV was given yesterday with 1 L diuresed. Objective - Vital Signs Vital signs: Vital Signs Temp 98.8 F 06/24/19 04:00 Pulse 117 H 06/24/19 07:00 Resp 18 06/24/19 07:00 BP 106/68 06/24/19 07:00 Pulse Ox 97 06/24/19 07:00 Intake & Output 06/23/19 06/24/19 06/24/19 18:59 06:59 18:59 Intake Total 549.659 3603.571 24.545 Output Total 985 680 40 Balance -415.604 407.571 -15.455 Weight 172.2 kg Intake: IV 510 250 20 Injectate 30 LR 480 250 20 Intake, IV Titration 59.396 837.571 4.545 Amount Albumin Human 5% 500 ml 500 In Empty Bag 1 bag @ 500 mls/hr IVPB ONCE ONE Rx#: [id number] Amiodarone 300 mg In 280.833 Dextrose 5% in Water 250 ml @ 0.5 MG/MIN 25 mls/hr IV .Q10H PRN Rx#: [id number] Insulin Regular 100 unit 59.396 56.738 4.545 In Sodium Chloride 0.9% 100 ml @ Per Protocol IV .Q0M [facility] Rx#:[id number] Output: Chest Tube Drainage 180 Mediastinal/Left Pleural 180 Urine 805 680 40 Other: Voiding Method Indwelling Catheter Indwelling Catheter ABP, PAP, CO, CI - Last Documented Arterial Blood Pressure 99/62 Pulmonary Artery Pressure 32/19 Cardiac Output 6.3 Cardiac Index 2.4 - Constitutional Constitutional Comment(s): Morbidly obese. General appearance: Present: cooperative, no acute distress - Respiratory Details: Lung sounds essentially clear to her bilateral upper lobes, diminished bilateral bases. No wheezes, rhonchi or crackles appreciated. Respirations are symmetrical and nonlabored. Oxygen saturation are 97% on 3 L nasal cannula. Achieving 750 mL on her incentive spirometry. - Cardiovascular Details: Irregular with a tachycardic rate consistent with atrial fibrillation. S1 and S2 present, negative for S3, gallop or murmur. Sternum is stable. Bedside telemetry showing atrial fibrillation heart rate 123 BPM. Surgical support bra and heart hugger in place, she is demonstrating appropriate use of a heart hugger. Knee-high ZAINAB hose and sequential compression devices in place to his bilateral lower extremities. Right IJ Cordis in place and functioning. - Gastrointestinal Gastrointestinal Comment(s): Abdomen soft, nontender and nondistended. Hypoactive bowel sounds present in all 4 abdominal quadrants. No guarding or rigidity. No organomegaly appreciated. Tolerating oral intake. - Genitourinary Genitourinary Comment(s): Argueta catheter for accurate I&O draining clear sofya urine. - Integumentary Integumentary Comment(s): Skin is warm and dry. No clubbing or cyanosis is present. Midline sternal incision is clean, dry and approximated. No drainage or redness is present. Dressing is clean, dry and intact. Left arm radial harvest site incisions clean, dry and intact. No drainage or redness is present. LOLI drain in place to her left forearm with scant serosanguineous drainage. Right lower extremity EVH harvest sites clean, dry and approximated. No drainage or redness is present. - Neurologic Neurologic Comment(s): No focal deficits. Neurologic: Present: CNII-XII intact - Musculoskeletal Musculoskeletal: Present: generalized weakness, strength equal bilaterally - Psychiatric Psychiatric Comment(s): Oriented 3. Psychiatric: Present: appropriate affect, intact judgment & insight - Allied health notes Allied health notes reviewed: nursing - Labs CBC & Chem 7: 06/24/19 04:24 06/24/19 04:24 Labs: Abnormal Lab Results - Last 24 Hours (Table) 06/23/19 06/23/19 06/23/19 Range/Units 08:07 09:00 09:58 WBC (3.8-10.6) k/uL RBC (3.80-5.40) m/uL Hgb (11.4-16.0) gm/dL Hct (34.0-46.0) % MCHC (31.0-37.0) g/dL Neutrophils # (1.3-7.7) k/uL Glucose (74-99) mg/dL POC Glucose (mg/dL) 140 H 133 H 127 H (75-99) mg/dL Total Protein (6.3-8.2) g/dL Albumin (3.5-5.0) g/dL 06/23/19 06/23/19 06/23/19 Range/Units 11:09 12:05 15:27 WBC (3.8-10.6) k/uL RBC (3.80-5.40) m/uL Hgb (11.4-16.0) gm/dL Hct (34.0-46.0) % MCHC (31.0-37.0) g/dL Neutrophils # (1.3-7.7) k/uL Glucose (74-99) mg/dL POC Glucose (mg/dL) 113 H 159 H 214 H (75-99) mg/dL Total Protein (6.3-8.2) g/dL Albumin (3.5-5.0) g/dL 06/23/19 06/23/19 06/23/19 Range/Units 17:02 17:49 18:58 WBC (3.8-10.6) k/uL RBC (3.80-5.40) m/uL Hgb (11.4-16.0) gm/dL Hct (34.0-46.0) % MCHC (31.0-37.0) g/dL Neutrophils # (1.3-7.7) k/uL Glucose (74-99) mg/dL POC Glucose (mg/dL) 200 H 166 H 121 H (75-99) mg/dL Total Protein (6.3-8.2) g/dL Albumin (3.5-5.0) g/dL 06/23/19 06/23/19 06/23/19 Range/Units 19:57 21:05 21:58 WBC (3.8-10.6) k/uL RBC (3.80-5.40) m/uL Hgb (11.4-16.0) gm/dL Hct (34.0-46.0) % MCHC (31.0-37.0) g/dL Neutrophils # (1.3-7.7) k/uL Glucose (74-99) mg/dL POC Glucose (mg/dL) 125 H 118 H 117 H (75-99) mg/dL Total Protein (6.3-8.2) g/dL Albumin (3.5-5.0) g/dL 06/23/19 06/24/19 06/24/19 Range/Units 23:04 00:09 01:15 WBC (3.8-10.6) k/uL RBC (3.80-5.40) m/uL Hgb (11.4-16.0) gm/dL Hct (34.0-46.0) % MCHC (31.0-37.0) g/dL Neutrophils # (1.3-7.7) k/uL Glucose (74-99) mg/dL POC Glucose (mg/dL) 133 H 147 H 158 H (75-99) mg/dL Total Protein (6.3-8.2) g/dL Albumin (3.5-5.0) g/dL 06/24/19 06/24/19 06/24/19 Range/Units 01:34 02:02 03:06 WBC (3.8-10.6) k/uL RBC (3.80-5.40) m/uL Hgb (11.4-16.0) gm/dL Hct (34.0-46.0) % MCHC (31.0-37.0) g/dL Neutrophils # (1.3-7.7) k/uL Glucose (74-99) mg/dL POC Glucose (mg/dL) 140 H 158 H 149 H (75-99) mg/dL Total Protein (6.3-8.2) g/dL Albumin (3.5-5.0) g/dL 06/24/19 06/24/19 06/24/19 Range/Units 04:04 04:24 04:24 WBC 10.9 H (3.8-10.6) k/uL RBC 3.42 L (3.80-5.40) m/uL Hgb 8.8 L (11.4-16.0) gm/dL Hct 29.5 L (34.0-46.0) % MCHC 29.8 L (31.0-37.0) g/dL Neutrophils # 8.8 H (1.3-7.7) k/uL Glucose 138 H (74-99) mg/dL POC Glucose (mg/dL) 135 H (75-99) mg/dL Total Protein 5.9 L (6.3-8.2) g/dL Albumin 3.2 L (3.5-5.0) g/dL 06/24/19 06/24/19 06/24/19 Range/Units 05:05 06:23 07:04 WBC (3.8-10.6) k/uL RBC (3.80-5.40) m/uL Hgb (11.4-16.0) gm/dL Hct (34.0-46.0) % MCHC (31.0-37.0) g/dL Neutrophils # (1.3-7.7) k/uL Glucose (74-99) mg/dL POC Glucose (mg/dL) 131 H 115 H 110 H (75-99) mg/dL Total Protein (6.3-8.2) g/dL Albumin (3.5-5.0) g/dL 06/24/19 Range/Units 07:20 WBC (3.8-10.6) k/uL RBC (3.80-5.40) m/uL Hgb (11.4-16.0) gm/dL Hct (34.0-46.0) % MCHC (31.0-37.0) g/dL Neutrophils # (1.3-7.7) k/uL Glucose (74-99) mg/dL POC Glucose (mg/dL) 112 H (75-99) mg/dL Total Protein (6.3-8.2) g/dL Albumin (3.5-5.0) g/dL - Imaging and Cardiology Chest x-ray: report reviewed, image reviewed Assessment and Plan Assessment: 1. Coronary arterial sclerosis, status post four-vessel coronary artery bypass grafting surgery 2. Uncontrolled insulin-dependent diabetes mellitus with a preoperative hemoglobin A1c of 12.4 3. History of hypertension 4. Hyperlipidemia 5. Asthma 6. Obstructive sleep apnea with home CPAP use 7. Morbid obesity with an admission BMI of 56 8. Remote history of pneumonia 9. Family history of diabetes and hypertension 10. Postoperative acute blood loss anemia, an expected outcome 11. Postoperative paroxysmal atrial fibrillation, an unexpected but potential outcome of surgery Plan: 1. Continue to maximize medical therapy with aspirin, Plavix, statin, and beta gregorio. We will increase her metoprolol tartrate 25 mg by mouth 3 times a day. 2. Bronchodilators management per pulmonary medicine. Wean oxygen as tolerat ed. 3. Encourage increase in activity. Physical therapy, occupational therapy and cardiac rehabilitation following. 4. Encourage use of her incentive spirometry every hour while awake. 5. Medical management, Insulin management and other comorbidities management per primary care service. 6. Discontinue Argueta catheter and right IJ Cordis. 7. Continue GI and DVT prophylaxis. 8. Discontinue left arm LOLI drain. 9. Initiate amiodarone 400 mg by mouth twice a day for atrial fibrillation prophylaxis. Discontinue IV amiodarone drip. 10. Continue home dose of Singulair. 11. Start Reglan 10 mg IV to 6 hours. 12. Continue Cardizem 30 mg by mouth every 6 hours for radial artery spasm prophylaxis. Do not discontinue unless okayed by cardiothoracic surgery. 13. Continue surgical support bra, continue to encourage use of her heart hugger. 14. Pain management per current when necessary orders. 15. Continue to follow daily labs and chest x-rays. 16. More recommendations to follow based on patient's clinical course. Time with Patient: Greater than 30
[2019-06-24 10:08] LABS: Glucose,Whole Blood 162 mg/dL (75-99)
[2019-06-24 11:18] LABS: Glucose,Whole Blood 216 mg/dL (75-99)
--- NOTE | 2019-06-24 11:24 | P.PN ---
Subjective Progress Note Date: 06/24/19 Principal diagnosis: Exertional dyspnea Patient is a 53-year-old -[place] female with a past medical history of diabetes mellitus type 2 insulin-dependent poorly controlled with A1c of 12.4, morbid obesity with BMI of 56.7, hypertension, dyslipidemia, asthma, and chronic pain who presented for elective quadruple bypass. Patient had initially presented here 04/18 with shortness of breath was treated for asthma exacerbation and outpatient cardiac workup was recommended once wheezing was better controlled. She ultimately underwent cardiac catheterization on 06/14 was found have triple-vessel coronary artery disease and coronary artery bypass grafting was recommended. Patient does follow with Dr. Delvalle for her asthma. Patient underwent four-vessel bypass surgery on 06/[address] Montanez resulting in a HERNDON to the diagonal and LAD, left radial artery to the OM, SVG to the PDA, along with clipping of the left atrial appendage. She had 2 episode of intraop a fib requiring cardioversion. She was extubated the same day as her procedure 06/22. She went into sustained A fib on 06/23 requiring amio bolus. She has been on and off insulin gtt, make 9 units average bout 5 units per hour. Patient seen and examined at bedside. Still very sedated speaks without opening eye, still having nausea no significant amount of oral intake per nursing. Pain is better per patient, denies SOB, feels full. Objective - Vital Signs Vital signs: Vital Signs Temp 98.8 F 06/24/19 04:00 Pulse 125 H 06/24/19 08:41 Resp 18 06/24/19 07:00 BP 106/68 06/24/19 07:00 Pulse Ox 97 06/24/19 07:00 Intake & Output 06/23/19 06/24/19 06/24/19 18:59 06:59 18:59 Intake Total 993.124 0645.571 27.272 Output Total 985 680 40 Balance -415.604 407.571 -12.728 Weight 172.2 kg Intake: IV 510 250 20 Injectate 30 LR 480 250 20 Intake, IV Titration 59.396 837.571 7.272 Amount Albumin Human 5% 500 ml 500 In Empty Bag 1 bag @ 500 mls/hr IVPB ONCE ONE Rx#: [id number] Amiodarone 300 mg In 280.833 Dextrose 5% in Water 250 ml @ 0.5 MG/MIN 25 mls/hr IV .Q10H PRN Rx#: [id number] Insulin Regular 100 unit 59.396 56.738 7.272 In Sodium Chloride 0.9% 100 ml @ Per Protocol IV .Q0M [facility] Rx#:[id number] Output: Chest Tube Drainage 180 Mediastinal/Left Pleural 180 Urine 805 680 40 Other: Voiding Method Indwelling Catheter Indwelling Catheter ABP, PAP, CO, CI - Last Documented Arterial Blood Pressure 99/62 Pulmonary Artery Pressure 32/19 Cardiac Output 6.3 Cardiac Index 2.4 - Exam General: non toxic, no distress, morbidly obese, appears older than stated age Derm: warm, dry Head: atraumatic, normocephalic, symmetric Eyes: EOMI, no lid lag, anicteric sclera Mouth: no lip lesion, mucus membranes moist Cardiovascular: S1-S2 irregular, no murmur Lungs: Decreased breath sounds bilateral, no rhonchi, no rales , no accessory muscle use Abdominal: soft, nontender to palpation, no guarding, no appreciable organomegaly Ext: no gross muscle atrophy, no edema, no contractures Neuro: CN II-XI grossly intact, no focal neuro deficits Psych: Somnolent, appropriately answers questions when awake, appropriate affect - Labs CBC & Chem 7: 06/24/19 04:24 06/24/19 04:24 Labs: Abnormal Lab Results - Last 24 Hours (Table) 06/23/19 06/23/19 06/23/19 Range/Units 11:09 12:05 15:27 WBC (3.8-10.6) k/uL RBC (3.80-5.40) m/uL Hgb (11.4-16.0) gm/dL Hct (34.0-46.0) % MCHC (31.0-37.0) g/dL Neutrophils # (1.3-7.7) k/uL Glucose (74-99) mg/dL POC Glucose (mg/dL) 113 H 159 H 214 H (75-99) mg/dL Total Protein (6.3-8.2) g/dL Albumin (3.5-5.0) g/dL 06/23/19 06/23/19 06/23/19 Range/Units 17:02 17:49 18:58 WBC (3.8-10.6) k/uL RBC (3.80-5.40) m/uL Hgb (11.4-16.0) gm/dL Hct (34.0-46.0) % MCHC (31.0-37.0) g/dL Neutrophils # (1.3-7.7) k/uL Glucose (74-99) mg/dL POC Glucose (mg/dL) 200 H 166 H 121 H (75-99) mg/dL Total Protein (6.3-8.2) g/dL Albumin (3.5-5.0) g/dL 06/23/19 06/23/19 06/23/19 Range/Units 19:57 21:05 21:58 WBC (3.8-10.6) k/uL RBC (3.80-5.40) m/uL Hgb (11.4-16.0) gm/dL Hct (34.0-46.0) % MCHC (31.0-37.0) g/dL Neutrophils # (1.3-7.7) k/uL Glucose (74-99) mg/dL POC Glucose (mg/dL) 125 H 118 H 117 H (75-99) mg/dL Total Protein (6.3-8.2) g/dL Albumin (3.5-5.0) g/dL 06/23/19 06/24/19 06/24/19 Range/Units 23:04 00:09 01:15 WBC (3.8-10.6) k/uL RBC (3.80-5.40) m/uL Hgb (11.4-16.0) gm/dL Hct (34.0-46.0) % MCHC (31.0-37.0) g/dL Neutrophils # (1.3-7.7) k/uL Glucose (74-99) mg/dL POC Glucose (mg/dL) 133 H 147 H 158 H (75-99) mg/dL Total Protein (6.3-8.2) g/dL Albumin (3.5-5.0) g/dL 06/24/19 06/24/19 06/24/19 Range/Units 01:34 02:02 03:06 WBC (3.8-10.6) k/uL RBC (3.80-5.40) m/uL Hgb (11.4-16.0) gm/dL Hct (34.0-46.0) % MCHC (31.0-37.0) g/dL Neutrophils # (1.3-7.7) k/uL Glucose (74-99) mg/dL POC Glucose (mg/dL) 140 H 158 H 149 H (75-99) mg/dL Total Protein (6.3-8.2) g/dL Albumin (3.5-5.0) g/dL 06/24/19 06/24/19 06/24/19 Range/Units 04:04 04:24 04:24 WBC 10.9 H (3.8-10.6) k/uL RBC 3.42 L (3.80-5.40) m/uL Hgb 8.8 L (11.4-16.0) gm/dL Hct 29.5 L (34.0-46.0) % MCHC 29.8 L (31.0-37.0) g/dL Neutrophils # 8.8 H (1.3-7.7) k/uL Glucose 138 H (74-99) mg/dL POC Glucose (mg/dL) 135 H (75-99) mg/dL Total Protein 5.9 L (6.3-8.2) g/dL Albumin 3.2 L (3.5-5.0) g/dL 06/24/19 06/24/19 06/24/19 Range/Units 05:05 06:23 07:04 WBC (3.8-10.6) k/uL RBC (3.80-5.40) m/uL Hgb (11.4-16.0) gm/dL Hct (34.0-46.0) % MCHC (31.0-37.0) g/dL Neutrophils # (1.3-7.7) k/uL Glucose (74-99) mg/dL POC Glucose (mg/dL) 131 H 115 H 110 H (75-99) mg/dL Total Protein (6.3-8.2) g/dL Albumin (3.5-5.0) g/dL 06/24/19 06/24/19 06/24/19 Range/Units 07:20 08:03 09:01 WBC (3.8-10.6) k/uL RBC (3.80-5.40) m/uL Hgb (11.4-16.0) gm/dL Hct (34.0-46.0) % MCHC (31.0-37.0) g/dL Neutrophils # (1.3-7.7) k/uL Glucose (74-99) mg/dL POC Glucose (mg/dL) 112 H 116 H 139 H (75-99) mg/dL Total Protein (6.3-8.2) g/dL Albumin (3.5-5.0) g/dL 06/24/19 Range/Units 10:04 WBC (3.8-10.6) k/uL RBC (3.80-5.40) m/uL Hgb (11.4-16.0) gm/dL Hct (34.0-46.0) % MCHC (31.0-37.0) g/dL Neutrophils # (1.3-7.7) k/uL Glucose (74-99) mg/dL POC Glucose (mg/dL) 162 H (75-99) mg/dL Total Protein (6.3-8.2) g/dL Albumin (3.5-5.0) g/dL Assessment and Plan Assessment: Patient is a 53 yo AAF care with elective 4 vessel bypass surgery. Diabetes mellitus type 2 insulin requiring, uncontrolled - insulin is being managed by cardiothorasic surgery. -Patient continue with nausea and poor oral intake. I suggest maintaining insulin gtt until adequate oral intake. When transiting off gtt will need long acting given 1 hour prior to transition off gtt or will likely have hyperglycemia. -Patient typically takes basaglar 75 units at night and admelog 30 units 3 times a day. I suspect that there is a large component of dietary noncompliance. Base her initial insulin dosing off of her IV insulin requirements and not home insulin requirements in this controlled environment -Follow blood sugars closely -Hemoglobin A1c 12.4 -Diabetic educators recs. -Ideally would benefit form outpatient endocrinology evaluation if able to coordinate Acute blood loss anemia, an anticipated outcome of surgery - follow CBC - Fe studies pending mild intermittent asthma - duoneb - at home on dulera, singulair, and ventolin as needed. Morbid obesity with BMI 56.7 - structured outpatient weight loss VU - home CPAP after extubation HTN - management per cardiovascular surgery. Atherosclerotic coronary artery disease status post 4 vessel bypass surgery -Management per cardiovascular surgery A. fib with RVR -Currently on Cardizem drip -Monitor telemetry -Management per cardiovascular surgery Thank you for allowing us to participate in the care of this patient. Dr. Kimble is not currently seeing patients, on discharge can follow-up with Juany Moraes NP and after 07/16 Dr. Stanford will be covering Dr. Kimble's practice.
[2019-06-24] MEDS: FUROSEMIDE 10 MG/ML 4 ML VIAL IV SCH ×2 (11:27→20:24)
[2019-06-24] MEDS: INSULIN ASPART (NovoLOG) 100 UNIT/ML VIAL SQ SCH ×5 (12:14→21:30)
[2019-06-24] MEDS: LOSARTAN 25 MG TAB PO SCH (12:15)
[2019-06-24 12:20] LABS: Glucose,Whole Blood 212 mg/dL (75-99)
--- NOTE | 2019-06-24 13:06 | PN ---
PROGRESS NOTE DATE OF SERVICE: 06/24/2019 She has been hemodynamically stable. She has less pain today. Continues to have some shortness of breath. She is sitting in the chair. She is more awake and alert. Her IS is up to 750. PHYSICAL EXAMINATION: Blood pressure 118/81, respiratory rate of 28, pulse rate of 137. She is afebrile. HEENT reveals no new changes. Chest reveals diminished breath sounds. Cardiovascular system reveals an S1, S2. Abdomen is soft. There is 1+ to 2+ pedal edema. LABS: Show a white count of 10.9, hemoglobin of 8.8. IMPRESSION: 1. Coronary artery disease status post coronary artery bypass. 2. Obstructive sleep apnea which she may need her CPAP reinstituted. 3. Severe asthma with some fixed obstruction. Continue bronchodilators and aerosolized steroids. 4. Medical debility. Consult Dr. Rickey Kuhn to see if she can at some point transition into rehab. Depending on how she does we should make further changes to her care. MMODL / IJN: [id number] /
--- NOTE | 2019-06-24 13:10 | P.PN ---
Subjective Progress Note Date: 06/24/19 Principal diagnosis: Status post CABG, postoperative day #2 This is a 53-year-old -[place] female, history of multiple medical problems including asthma, type 2 diabetes, recently admitted to the hospital on 04/18/2019, and she was discharged on 04/19/2019. Patient was admitted with mostly shortness of breath and wheezing. Patient was treated mostly for bronchial asthma exacerbation, underwent CT angiogram of the chest, and it showed significant coronary artery calcifications. Her d-dimer at the time was 0.75, troponin was less than 0.012, patient was treated mostly for asthma exacerbation, however she was seen by cardiology on consultation, and recommended outpatient workup for her coronary artery calcification. Apparently since discharge, the patient underwent cardiac catheterization on 06/14/2019, and she was found to have triple-vessel coronary artery disease with significant disease in mid segment of the RCA and 60% lesion in the proximal and midportion of the LAD and the branch of the circumflex was diffusely diseased. Diagonal branch of the LAD had significant disease. Hence the patient was advised to undergo coronary artery bypass surgery. I was asked to see the patient on consultation postoperatively today, patient normally sees Dr. Stephanie jaeger for her asthma. However he does not have ICU privileges, therefore I was asked to see her for ICU management. Presently the patient is on mechanical ventilation, she is on assist control mode rate of 14. Tidal volume is 490, PEEP is 10, and FiO2 is 100%. ABG showed a pO2 of more than 400 pCO2 of 40 pH of 7.37. Hence her FiO2 will be cut down to 45%, and we will eventually cut down the PEEP from 10 to 5. Postoperative chest x-ray showed endotracheal tube in the proper position. Mild interstitial changes noted, no evidence of pneumothorax, and in no evidence of infiltrate. Small tiny pleural effusions noted. Bilateral hilar fullness noted, however recent CT of the chest showed no evidence of by hilar lymphadenopathy. Reevaluated today on 06/23/2019, patient remains in the ICU, she was extubated last night. Hours after her surgery. Patient is hemodynamically stable. Her cardiac index is 2.9, PA pressure is 28/12 CVP is 12. She is presently on Cardizem drip at 5 mg per hour. She is on 4 L nasal cannula with O2 saturation 96%. She is definitely doing poorly with incentive spirometry, but that will likely improve over the next 24 hours. Mediastinal and left pleural chest tubes are in place to low continuous wall suction no air leak is noted. Had 450 ML of serosanguineous drainage since surgery. Patient seems to be comfortable, opens eyes with verbal stimuli, but she seems to be very tired. She was taken off insulin early this morning. Sugars are running in in the 120 range. Labs were reviewed. Sat is 9.6 hemoglobin is 9.9. Electrolytes and renal profile are normal. Chest x-ray showed mostly bibasilar atelectasis and small bilateral pleural effusions. Reevaluated today on 06/24/2019, patient remains in the intensive care unit, denies shortness of breath, had an episode of atrial fibrillation with RVR this morning, and the patient was placed on amiodarone drip. Presently on 3 L nasal cannula, and the patient had intermittent episodes of obstructive sleep apnea noted by the nurses at bedside. Hence I recommended intermittently using BiPAP at 12/, and the patient could actually get her BiPAP machine from home and use it as needed and especially at night when she sleeps. Her O2 saturations 97% on 3 L, on her incentive spirometry, she is achieving 750 ML. Her mediastinal and left pleural chest tubes were removed yesterday. Patient seems to be a bit sleepy today, hence I believe she will benefit from having her own CPAP machine. Patient did receive 20 mg of Lasix yesterday, and she diuresed quite well.chest x-ray today showed mostly bibasilar atelectasis and small bilateral pleural effusions.CBC is basically unremarkable hemoglobin is 8.8.basic metabolic profile and renal profile are normal.blood sugar is 138 this morning Objective - Vital Signs Vital signs: Vital Signs Temp 98.9 F 06/24/19 08:00 Pulse 110 H 06/24/19 11:00 Resp 28 H 06/24/19 11:00 BP 118/81 06/24/19 11:00 Pulse Ox 96 06/24/19 11:00 Intake & Output 06/23/19 06/24/19 06/24/19 18:59 06:59 18:59 Intake Total 982.491 7675.571 27.272 Output Total 985 680 40 Balance -415.604 407.571 -12.728 Weight 172.2 kg Intake: IV 510 250 20 Injectate 30 LR 480 250 20 Intake, IV Titration 59.396 837.571 7.272 Amount Albumin Human 5% 500 ml 500 In Empty Bag 1 bag @ 500 mls/hr IVPB ONCE ONE Rx#: [id number] Amiodarone 300 mg In 280.833 Dextrose 5% in Water 250 ml @ 0.5 MG/MIN 25 mls/hr IV .Q10H PRN Rx#: [id number] Insulin Regular 100 unit 59.396 56.738 7.272 In Sodium Chloride 0.9% 100 ml @ Per Protocol IV .Q0M YESSENIA Rx#:[id number] Output: Chest Tube Drainage 180 Mediastinal/Left Pleural 180 Urine 805 680 40 Other: Voiding Method Indwelling Catheter Indwelling Catheter ABP, PAP, CO, CI - Last Documented Arterial Blood Pressure 99/62 Pulmonary Artery Pressure 32/19 Cardiac Output 6.3 Cardiac Index 2.4 - Exam Physical Exam: Revealed a 53-year-old -[place] female, obese, on nasal cannula, in no distress. Head: Atraumatic normocephalic. HEENT:[Neck is supple.] [No neck masses.] [No thyromegaly.] [No JVD.] PERRLA, EOMI, no icterus. Chest: [Diminished breath sounds at the bases, no crackles, no rhonchi and no wheezes. Cardiac Exam: [Normal S1 and S2, no S3 gallop, no murmur.] Positive pericardial rub. Abdomen: [Obese, Soft, nontender, no megaly, no rebound, no guarding, diminished bowel sounds] Extremities: [No clubbing, trace of bipedal edema, no cyanosis.] Good pulses bilaterally, both lower extremities are wrapped with Slade wrappings. Neurological Exam: sleepy but arousable, oriented 3, no gross focal neurologic deficits. Psychiatric: Blunted affect, normal mental status examination.. Lymphatics: No lymphadenopathy. Skin: No rashes. - Labs CBC & Chem 7: 06/24/19 04:24 06/24/19 04:24 Labs: Abnormal Lab Results - Last 24 Hours (Table) 06/23/19 06/23/19 06/23/19 Range/Units 15:27 17:02 17:49 WBC (3.8-10.6) k/uL RBC (3.80-5.40) m/uL Hgb (11.4-16.0) gm/dL Hct (34.0-46.0) % MCHC (31.0-37.0) g/dL Neutrophils # (1.3-7.7) k/uL Glucose (74-99) mg/dL POC Glucose (mg/dL) 214 H 200 H 166 H (75-99) mg/dL Total Protein (6.3-8.2) g/dL Albumin (3.5-5.0) g/dL 06/23/19 06/23/19 06/23/19 Range/Units 18:58 19:57 21:05 WBC (3.8-10.6) k/uL RBC (3.80-5.40) m/uL Hgb (11.4-16.0) gm/dL Hct (34.0-46.0) % MCHC (31.0-37.0) g/dL Neutrophils # (1.3-7.7) k/uL Glucose (74-99) mg/dL POC Glucose (mg/dL) 121 H 125 H 118 H (75-99) mg/dL Total Protein (6.3-8.2) g/dL Albumin (3.5-5.0) g/dL 06/23/19 06/23/19 06/24/19 Range/Units 21:58 23:04 00:09 WBC (3.8-10.6) k/uL RBC (3.80-5.40) m/uL Hgb (11.4-16.0) gm/dL Hct (34.0-46.0) % MCHC (31.0-37.0) g/dL Neutrophils # (1.3-7.7) k/uL Glucose (74-99) mg/dL POC Glucose (mg/dL) 117 H 133 H 147 H (75-99) mg/dL Total Protein (6.3-8.2) g/dL Albumin (3.5-5.0) g/dL 06/24/19 06/24/19 06/24/19 Range/Units 01:15 01:34 02:02 WBC (3.8-10.6) k/uL RBC (3.80-5.40) m/uL Hgb (11.4-16.0) gm/dL Hct (34.0-46.0) % MCHC (31.0-37.0) g/dL Neutrophils # (1.3-7.7) k/uL Glucose (74-99) mg/dL POC Glucose (mg/dL) 158 H 140 H 158 H (75-99) mg/dL Total Protein (6.3-8.2) g/dL Albumin (3.5-5.0) g/dL 06/24/19 06/24/19 06/24/19 Range/Units 03:06 04:04 04:24 WBC 10.9 H (3.8-10.6) k/uL RBC 3.42 L (3.80-5.40) m/uL Hgb 8.8 L (11.4-16.0) gm/dL Hct 29.5 L (34.0-46.0) % MCHC 29.8 L (31.0-37.0) g/dL Neutrophils # 8.8 H (1.3-7.7) k/uL Glucose (74-99) mg/dL POC Glucose (mg/dL) 149 H 135 H (75-99) mg/dL Total Protein (6.3-8.2) g/dL Albumin (3.5-5.0) g/dL 06/24/19 06/24/19 06/24/19 Range/Units 04:24 05:05 06:23 WBC (3.8-10.6) k/uL RBC (3.80-5.40) m/uL Hgb (11.4-16.0) gm/dL Hct (34.0-46.0) % MCHC (31.0-37.0) g/dL Neutrophils # (1.3-7.7) k/uL Glucose 138 H (74-99) mg/dL POC Glucose (mg/dL) 131 H 115 H (75-99) mg/dL Total Protein 5.9 L (6.3-8.2) g/dL Albumin 3.2 L (3.5-5.0) g/dL 06/24/19 06/24/19 06/24/19 Range/Units 07:04 07:20 08:03 WBC (3.8-10.6) k/uL RBC (3.80-5.40) m/uL Hgb (11.4-16.0) gm/dL Hct (34.0-46.0) % MCHC (31.0-37.0) g/dL Neutrophils # (1.3-7.7) k/uL Glucose (74-99) mg/dL POC Glucose (mg/dL) 110 H 112 H 116 H (75-99) mg/dL Total Protein (6.3-8.2) g/dL Albumin (3.5-5.0) g/dL 06/24/19 06/24/19 06/24/19 Range/Units 09:01 10:04 11:04 WBC (3.8-10.6) k/uL RBC (3.80-5.40) m/uL Hgb (11.4-16.0) gm/dL Hct (34.0-46.0) % MCHC (31.0-37.0) g/dL Neutrophils # (1.3-7.7) k/uL Glucose (74-99) mg/dL POC Glucose (mg/dL) 139 H 162 H 216 H (75-99) mg/dL Total Protein (6.3-8.2) g/dL Albumin (3.5-5.0) g/dL 06/24/19 Range/Units 12:11 WBC (3.8-10.6) k/uL RBC (3.80-5.40) m/uL Hgb (11.4-16.0) gm/dL Hct (34.0-46.0) % MCHC (31.0-37.0) g/dL Neutrophils # (1.3-7.7) k/uL Glucose (74-99) mg/dL POC Glucose (mg/dL) 212 H (75-99) mg/dL Total Protein (6.3-8.2) g/dL Albumin (3.5-5.0) g/dL Assessment and Plan Assessment: Impression: 1 Status post CABG, postoperative day#2. Patient had off-pump CABG 4 with sequential HERNDON to diagonal and LAD, left radial artery to obtuse margin, SVG to PDA and she had clipping of the left atrial appendage. 2 history of mild intermittent asthma, presently inactive, however the patient will be placed on DuoNeb updrafts 4 times a day and when necessary. 3 morbid obesity 4 type 2 diabetes 5 seasonal ALLERGIC rhinitis. 6 history of obstructive sleep apnea syndrome uses CPAP at home. 7 benign essential hypertension 8 mixed hyperlipidemia 9 postoperative atelectasis, expected post surgery. Patient was advised to continue incentive spirometry. 10 small bilateral pleural effusions with postobstructive atelectasis noted on chest x-ray today, patient will likely benefit from gentle diuresis and more incentive spirometer. Recommendation: Continue aspirin, Plavix, statins, and beta blockers. Continue bronchodilators including updrafts, Pulmicort, and Singulair. No need for systemic steroids at this point. Continue incentive spirometer. Continue GI and DVT prophylaxis. Continue chest tube to low suction. Continue surgical supportive bra and encouraged the use of the heart hugger. Continue to follow daily labs and x-rays. will recommend BiPAP as needed with IPAP of 12 EPAP of 4 and the patient will be instructed to bring her own BiPAP machine from home. She is known to have history of obstructive sleep apnea, and she will do well with her own machine. We'll continue to follow while the patient is in the ICU Time with Patient: Less than 30
[2019-06-24] MEDS: DEXTROSE 5% IN WATER 100 ML with AMIODARONE 150 MG IV PRN ×2 (13:45→14:06)
[2019-06-24 17:20] LABS: Glucose,Whole Blood 203 mg/dL (75-99)
--- NOTE | 2019-06-24 20:10 | PN ---
PROGRESS NOTE Mrs. Jameson Condon is status post bypass surgery. She is doing well today. She was slightly hypotensive requiring bolus of IV fluids. She is somewhat better. She is on amiodarone. Her rate control is fairly decent. S1-S2 heard normally. Heart sounds heard distantly. Lungs reveal improved air entry. Abdomen and lower extremity exam is unchanged. PLAN: Continue IV fluid. She will probably benefit from additional IV fluids as well. Same medical regimen. Incentive spirometry and pulmonary toilet. MMODL / IJN: [id number] /
[2019-06-24] MEDS: SENNOSIDES-DOCUSATE SODIUM 1 EACH TAB PO SCH (20:24)
[2019-06-24] MEDS: MONTELUKAST 10 MG TAB PO SCH (20:24)
[2019-06-24 21:28] LABS: Glucose,Whole Blood 212 mg/dL (75-99)
[2019-06-24] MEDS: INSULIN DETEMIR (LEVEMIR) 100 UNIT/ML SYR SQ SCH (21:28)
[2019-06-25] MEDS: IPRATROPIUM-ALBUTEROL 3 ML NEB INHALATION PRN (01:59)
[2019-06-25 02:24] LABS: Glucose,Whole Blood 162 mg/dL (75-99)
[2019-06-25] MEDS: KETOROLAC 30 MG/ML 1 ML VIAL IVP SCH (05:53)
[2019-06-25 06:15] LABS: Basophils % (A) 0 %; Eosinophils # (A) 0.1 k/uL (0-0.7); Eosinophils % (A) 1 %; HCT 29.5 % (34.0-46.0); HGB 9.2 gm/dL (11.4-16.0); Hypochromasia Marked; Lymphocytes # (A) 1.5 k/uL (1.0-4.8); Lymphocytes % (A) 15 %; MCH 26.2 pg (25.0-35.0); MCHC 31.1 g/dL (31.0-37.0); MCV 84.3 fL (80.0-100.0); Mean Platelet Volume 6.4; Monocytes # (A) 0.5 k/uL (0-1.0); Monocytes % (A) 5 %; Neutrophils # (A) 7.9 k/uL (1.3-7.7); Neutrophils % (A) 77 %; Platelet Count 263 k/uL (150-450); RDW 12.8 % (11.5-15.5); WBC 10.2 k/uL (3.8-10.6)
--- NOTE | 2019-06-25 06:27 | P.CONS ---
History of Present Illness - Chief Complaint Cardiac debility - History of Present Illness I had the opportunity to see patient for inpatient rehab consultation with regard to cardiac debility. She was admitted to [facility] June 22 with known cardiac disease. Underwent 4 vessel coronary bypass by Dr. Montanze. Chest x- rays followed for bibasilar airspace disease atelectasis. Seen by pulmonary, Dr. Quintanilla. PT and OT prescribed. Previous functional history as elicited patient: 53-year-old right-handed female who is lives in one floor home with 3 kids. Patient unemployed. Describes independent cooking, laundry, driving, standing shower and gait without device. Denies tobacco or alcohol. Dr. Kimble was regular doctor but worried return to [facility] or Dr. Stanford. Family history father with cancer. Review of Systems Review of systems: ENT: Denies sneezes or discharge. Eyes: Denies discharge or photophobia. Cardiac: Sternal discomfort. Pulmonary: Mild to moderate shortness of breath. Breast: Denies discharge or lumps. Gastrointestinal: Denies nausea, emesis, constipation, diarrhea. Genitourinary: Denies discharge or frequency. Musculoskeletal: Denies muscle or bone aches. Neurologic: Mild to moderate generalized weakness. Endocrine: Denies shakes or sweats. Oncology: Denies cancers. Dermatologic: Denies rash, itching, pruritus. ALLERGY/immunology: Denies sneezes, rashes. Past Medical History Past Medical History: Asthma, Coronary Artery Disease (CAD), Diabetes Mellitus, Eye Disorder, Hyperlipidemia, Hypertension, Sleep Apnea/CPAP/BIPAP Additional Past Medical History / Comment(s): retinopathy,GLAUCOMA, chronic pain, BLOOD CLOT IN ARM 30 YEARS AGO R/T TO PICC LINE MISPLACEMENT, uses CPAP History of Any Multi-Drug Resistant Organisms: None Reported Past Surgical History: Heart Catheterization Additional Past Surgical History / Comment(s): PICC LINE Past Anesthesia/Blood Transfusion Reactions: No Reported Reaction Additional Past Anesthesia/Blood Transfusion Reaction / Comm: no anesthesia Past Psychological History: No Psychological Hx Reported Smoking Status: Never smoker Past Alcohol Use History: None Reported Past Drug Use History: None Reported - Past Family History Father Family Medical History: Cancer Additional Family Medical History / Comment(s): Colon CA Mother Family Medical History: Diabetes Mellitus, Hypertension Brother(s) Family Medical History: Diabetes Mellitus Medications and Allergies Home Medications Medication Instructions Recorded Confirmed Type Insulin Glargine,Hum.rec.anlog 75 unit SQ HS 07/26/18 06/22/19 History [Basaglar Kwikpen U-100] Mometasone/Formoterol [Dulera 100 2 puff INHALATION RT-BID 07/26/18 06/20/19 History Mcg/5 Mcg Inhaler] Multivitamins, Thera [Multivitamin 1 tab PO DAILY 07/26/18 06/20/19 History (formulary)] Montelukast Sodium [Singulair] 10 mg PO HS 12/18/18 06/20/19 History Albuterol Inhaler [Ventolin Hfa 1 - 2 puff INHALATION RT-Q6H PRN 12/20/1811/07 Rx Inhaler] #1 inhaler Albuterol Nebulized [Ventolin 2.5 mg INHALATION RT-Q4H PRN 03/31/19 06/20/19 History Nebulized] Insulin Lispro [Admelog] 30 unit SQ AC-TID 03/31/19 06/20/19 History Aspirin [Adult Low Dose Aspirin EC] 81 mg PO DAILY 06/12/19 06/20/19 History Latanoprost/Pf [Latanoprost 0.005% 1 drop BOTH EYES HS 06/12/19 06/20/19 History Eye Drop] Atorvastatin [Lipitor] 80 mg PO HS 30 Days #30 tab 06/14/19 06/20/19 Rx Diltiazem Oral [Cardizem*] 60 mg PO DAILY #30 tab 06/14/19 06/20/19 Rx Losartan [Cozaar] 50 mg PO DAILY 30 Days #30 tab 06/14/19 06/20/19 Rx Metoprolol Tartrate [Lopressor] 25 mg PO BID #60 tab 06/14/19 06/20/19 Rx Allergies Allergy/AdvReac Type Severity Reaction Status Date / Time mold AdvReac Itching Verified 06/20/19 11:42 dust Allergy Mild Itching Uncoded 06/20/19 11:42 Physical Exam Vitals: Vital Signs Temp Pulse Resp BP Pulse Ox 06/25/19 05:00 109 H 27 H 116/81 94 L 06/25/19 04:00 98.9 F 97 25 H 121/92 96 06/25/19 03:00 95 25 H 117/73 95 06/25/19 02:13 96 06/25/19 02:00 96 22 110/73 96 06/25/19 01:59 88 06/25/19 01:00 98 27 H 109/76 96 06/25/19 00:18 103 H 24 116/78 97 06/25/19 00:00 97.4 F L 101 H 24 128/73 97 06/24/19 23:00 103 H 22 110/72 96 06/24/19 22:00 101 H 25 H 122/88 96 06/24/19 21:00 109 H 24 115/76 97 06/24/19 20:16 101 H 06/24/19 20:00 97.4 F L 99 22 112/72 98 06/24/19 19:53 92 97 06/24/19 19:00 94 27 H 97/58 94 L 06/24/19 18:00 88 24 101/68 95 06/24/19 17:00 96 20 101/70 94 L 06/24/19 16:00 98.6 F 100 30 H 92/64 96 06/24/19 15:54 96 06/24/19 15:41 93 06/24/19 15:00 103 H 23 93/71 97 06/24/19 14:00 115 H 21 123/79 97 06/24/19 13:00 104 H 32 H 107/78 97 06/24/19 12:00 99.0 F 101 H 32 H 104/76 96 06/24/19 11:00 110 H 28 H 118/81 96 06/24/19 10:00 137 H 29 H 123/84 93 L 06/24/19 09:00 112 H 25 H 119/73 97 06/24/19 08:41 125 H 06/24/19 08:23 111 H 06/24/19 08:00 98.9 F 124 H 26 H 131/74 96 06/24/19 07:00 117 H 18 106/68 97 Intake and Output 06/24/19 06/24/19 06/25/19 14:59 22:59 06:59 Intake Total 686.439 559.583 140 Output Total 387 275 1 Balance 299.439 284.583 139 Intake: IV 460 160 120 Dextrose 5% in Water 100 300 ml @ 618 mls/hr IV .Q10M ONE with Amiodarone 150 mg Rx#:[id number] LR 20 Lactated Ringers 1,000 ml 140 160 120 @ 20 mls/hr IV .Q24H [facility] Rx#:[id number] Intake, IV Titration 226.439 199.583 20 Amount Amiodarone 300 mg In 219.167 199.583 Dextrose 5% in Water 250 ml @ 0.5 MG/MIN 25 mls/hr IV .Q10H PRN Rx#: [id number] Insulin Regular 100 unit 7.272 In Sodium Chloride 0.9% 100 ml @ Per Protocol IV .Q0M YESSENIA Rx#:[id number] Lactated Ringers 1,000 ml 20 @ 20 mls/hr IV .Q24H [facility] Rx#:[id number] Oral 200 Output: Urine 387 275 Emesis 1 Other: Voiding Method Indwelling Catheter Bedside Commode Bedside Commode ABP, PAP, CO, CI - Last 8 Hours Cardiac Output 6.3 Cardiac Output 6.3 Cardiac Output 6.3 Cardiac Output 6.3 Cardiac Output 6.3 Cardiac Output 6.3 Cardiac Index 2.4 Cardiac Index 2.4 Cardiac Index 2.4 Cardiac Index 2.4 Cardiac Index 2.4 Cardiac Index 2.4 Skin: Good color, texture, turgor. General: Morbidly obese and comfortable appearance. Head: Normocephalic, atraumatic. Eyes: Symmetric. Pupils equal round. Ears: Symmetric. Hearing within normal limits. Mouth: Clear. Neck: Supple. Carotid without bruit. Cardiac: Regular rate and rhythm. Lungs: Clear anteriorly and posteriorly. Abdomen: Soft active nontender. Obese. Extremities: Normal tone. Obese. Neurological: Mental status: Alert, cooperative, pleasant. Cranial nerves: Symmetric facial tone and trapezius. Motor: Can actively elevate all 4 limbs off of bed but it best antigravity. Sensation: Intact throughout. DTRs: Symmetric and equal throughout. Mobility: Requires physical assistance for bed mobility Results CBC & Chem 7: 06/25/19 05:45 06/24/19 04:24 Labs: Abnormal Lab Results - Last 24 Hours (Table) 06/24/19 06/24/19 06/24/19 Range/Units 04:24 06:23 07:04 WBC 10.9 H (3.8-10.6) k/uL RBC 3.42 L (3.80-5.40) m/uL Hgb 8.8 L (11.4-16.0) gm/dL Hct 29.5 L (34.0-46.0) % MCHC 29.8 L (31.0-37.0) g/dL Neutrophils # 8.8 H (1.3-7.7) k/uL POC Glucose (mg/dL) 115 H 110 H (75-99) mg/dL 06/24/19 06/24/19 06/24/19 Range/Units 07:20 08:03 09:01 WBC (3.8-10.6) k/uL RBC (3.80-5.40) m/uL Hgb (11.4-16.0) gm/dL Hct (34.0-46.0) % MCHC (31.0-37.0) g/dL Neutrophils # (1.3-7.7) k/uL POC Glucose (mg/dL) 112 H 116 H 139 H (75-99) mg/dL 06/24/19 06/24/19 06/24/19 Range/Units 10:04 11:04 12:11 WBC (3.8-10.6) k/uL RBC (3.80-5.40) m/uL Hgb (11.4-16.0) gm/dL Hct (34.0-46.0) % MCHC (31.0-37.0) g/dL Neutrophils # (1.3-7.7) k/uL POC Glucose (mg/dL) 162 H 216 H 212 H (75-99) mg/dL 06/24/19 06/24/19 06/25/19 Range/Units 17:06 21:25 02:10 WBC (3.8-10.6) k/uL RBC (3.80-5.40) m/uL Hgb (11.4-16.0) gm/dL Hct (34.0-46.0) % MCHC (31.0-37.0) g/dL Neutrophils # (1.3-7.7) k/uL POC Glucose (mg/dL) 203 H 212 H 162 H (75-99) mg/dL 10/07/19 Range/Units 05:45 WBC (3.8-10.6) k/uL RBC 3.50 L (3.80-5.40) m/uL Hgb 9.2 L (11.4-16.0) gm/dL Hct 29.5 L (34.0-46.0) % MCHC (31.0-37.0) g/dL Neutrophils # 7.9 H (1.3-7.7) k/uL POC Glucose (mg/dL) (75-99) mg/dL Assessment and Plan (1) Arteriosclerosis of coronary artery Current Visit: Yes Status: Acute Code(s): I25.10 - ATHSCL HEART DISEASE OF [place] CORONARY ARTERY W/O ANG PCTRS SNOMED Code(s): 89259012 Plan: Impression: 1. Cardiac debility. 2. Status post CABG four-vessel. 3. Morbidly obese. 4. Diabetes. 5. Asthma. 6. Hypertension. 7. Sleep apnea. Comments and plan: At this time PT and OT prescribed. We'll follow therapies with yourself for possible need and benefit of inpatient rehab.
[2019-06-25 06:39] LABS: Albumin 3.2 g/dL (3.5-5.0); Calcium 8.5 mg/dL (8.4-10.2); Potassium 4.4 mmol/L (3.5-5.1); Total Bilirubin 0.8 mg/dL (0.2-1.3); Total Protein 6.2 g/dL (6.3-8.2)
[2019-06-25] MEDS: PANTOPRAZOLE 40 MG TABLET PO SCH (06:50)
[2019-06-25] MEDS: INSULIN ASPART (NovoLOG) 100 UNIT/ML VIAL SQ SCH ×7 (07:08→21:31)
[2019-06-25 07:28] LABS: Glucose,Whole Blood 114 mg/dL (75-99)
[2019-06-25] MEDS: ONDANSETRON 4 MG/2 ML VIAL IVP PRN ×2 (08:11→21:40)
[2019-06-25] MEDS: HEPARIN SODIUM,PORCINE 5,000 UNIT/ML 1 ML VIAL SQ SCH ×2 (08:14→15:58)
--- NOTE | 2019-06-25 08:24 | XR ---
EXAMINATION TYPE: XR chest 1V portable DATE OF EXAM: 06/25/2019 COMPARISON: Prior chest x-ray 06/24/2019 HISTORY: Status post coronary artery bypass graft TECHNIQUE: Single frontal view of the chest is obtained. FINDINGS: Exam is rotated and likely expiratory, somewhat limited by patient body habitus. No eviden t pneumothorax. Heart size is obscured by bibasilar increased attenuation. Central vascularity is aga in prominent. Patient is post median sternotomy. IMPRESSION: Rotated exam, suspect cardiomegaly, correlate for possible pulmonary venous hypertension and interstitial edema.
[2019-06-25] MEDS: BUDESONIDE 0.5 MG/2 ML NEBU INHALATION SCH ×2 (08:27→20:16)
[2019-06-25] MEDS: IPRATROPIUM-ALBUTEROL 3 ML NEB INHALATION SCH ×4 (08:27→20:16)
--- NOTE | 2019-06-25 08:41 | PN ---
PROGRESS NOTE DATE OF SERVICE: June 25, 2019 This is a progress note from Pulmonary Critical Care. This is a 53-year-old black female, postop day #3, status post off pump 4-vessel bypass grafting. The patient is doing reasonably well. The patient is currently on O2 at 2 L. Not receiving any IV fluids. She is postop day #3. The surgery was done by Dr. Montanez. The patient does have a history of intermittent asthma, not currently active, morbid obesity, type 2 diabetes, seasonal allergic rhinitis, sleep apnea syndrome, currently on home CPAP, benign essential hypertension, mixed hyperlipidemia, postoperative atelectasis, and small bilateral pleural effusions. Again currently, the patient seems to be doing relatively well. She was a bit sleepy this morning when I saw her. She did not have any major complaints. She was seen by Dr. Abrams yesterday. PHYSICAL EXAMINATION: VITAL SIGNS: Current vital signs are reviewed. Her temperature is 98.9, heart rate 97, respiratory rate 22, blood pressure 132/81, mean 98 and 2 L saturation 96%. GENERAL: Appears in no acute distress. Resting comfortably. HEENT: Examination is grossly unremarkable. Mucous membranes are moist. Nasal O2 noted. NECK: Supple. Full range of motion. No adenopathy. Neck veins are flat. No thyromegaly. CARDIOVASCULAR: Examination reveals distant heart sounds. Heart rate in the 90s. S1, S2 normal. LUNGS: Reveal diminished breath sounds throughout. A few scattered rhonchi. No wheezes or crackles. ABDOMEN: Obese. Bowel sounds are heard. EXTREMITIES: Are intact. No cyanosis, clubbing, or significant edema. SKIN: Without rash. NEUROLOGIC: Examination is nonfocal. She is a bit sleepy this morning, but does arouse and is appropriate and does move all 4 extremities. LAB DATA: Lab data is reviewed. White count 10.2, hemoglobin 9.2, hematocrit 29.5, platelet count 263,000. These labs are consistent with a mild postoperative anemia. Sodium 136, potassium 4.4 chloride 104, CO2 of 24. Anion gap is 8. BUN and creatinine were 29 and 0.95, suggesting some mild prerenal azotemia. Albumin 3.2. A chest x-ray was done this morning. It shows postoperative changes. She has also got bilateral pleural effusions and bilateral basilar atelectasis. Difficult to assess her chest x-ray given her body habitus. The upper lobes look relatively clear. MEDICATIONS: Medications are reviewed. Microbiology is pending or negative. ASSESSMENT: 1. Status post 4-vessel bypass grafting, off pump, postoperative day #3. 2. Status post routine postoperative ventilator management, resolved. 3. Mild intermittent asthma, not currently active. 4. Morbid obesity. 5. Type 2 diabetes. 6. Seasonal allergic rhinitis. 7. History of sleep apnea syndrome, currently on home CPAP. 8. Benign essential hypertension. 9. Mixed hyperlipidemia. 10.Postoperative atelectasis and small bilateral pleural effusions. PLAN: I would encourage the patient to use her incentive spirometer q.1 hour while awake. Recommend also deep breathing, coughing, clearing of secretions. The patient remains on appropriate medications including GI, DVT prophylaxis. She apparently has been evaluated by Dr. Kuhn for possible inpatient rehabilitation. We will continue to follow. Prognosis is guarded. Medications are reviewed. MMODL / IJN: [id number] /
--- NOTE | 2019-06-25 08:53 | P.PN ---
Subjective Progress Note Date: 06/25/19 Principal diagnosis: Coronary arteriosclerosis, history of hypertension, hyperlipidemia, uncontrolled insulin dependent diabetes with hyperglycemia and her preoperative hemoglobin A1c of 12.4, asthma, obstructive sleep apnea with home CPAP use, morbid obesity with a BMI of 56, remote history of pneumonia and family history of diabetes and hypertension. POD #3 off-pump coronary artery bypass grafting surgery 4 vessels with sequential HERNDON to the diagonal coronary artery and left anterior descending coronary artery, a left radial artery to the obtuse marginal coronary artery, a reverse saphenous vein graft to the PDA with an endovascular harvesting of the left radial artery and greater saphenous vein. Clipping of the left atrial appendage using a 35 mm Atriclip. Postoperative acute blood loss anemia, an expected outcome of surgery due to hemodilution. Postoperative paroxysmal atrial fibrillation, an unexpected but potential outcome of surgery. The patient is sitting up to the bedside chair in the intensive care unit. She is in no acute distress. The patient is quite sleepy this morning but arouses easily with verbal stimuli and is oriented 3. She is moving all 4 extremities appropriately. She denies any complaints of pain or shortness of breath. She is complaining of episodes of nausea and had 1 emesis this a.m. Bedside telemetry showing atrial fibrillation heart rate 108. She was started on amiodarone per protocol yesterday for atrial fibrillation prophylaxis. Her nurse reports that the patient walked from her room to the nurse's station with minimal assistance. She remains on 2 L nasal cannula with oxygen saturations 95%. She is achieving 750 mL on her incentive spirometry. The patient was using her home CPAP unit throughout the night. She is on Lasix 40 mg IV every 12 hours and her urine output was 275 mL in the last 12 hours. A bladder scan was completed this morning which showed 41 mL. She is afebrile last 24 hours. Laboratory results this morning show a WBC count of 10.2, hemoglobin 9.2, hematocrit 29.5, platelets 263, sodium 136, BUN 29, and creatinine 0.95. Objective - Vital Signs Vital signs: Vital Signs Temp 98.9 F 06/25/19 04:00 Pulse 115 H 06/25/19 08:27 Resp 22 06/25/19 07:00 BP 132/81 06/25/19 07:00 Pulse Ox 96 06/25/19 07:00 Intake & Output 06/24/19 06/25/19 06/25/19 18:59 06:59 18:59 Intake Total 766.439 639.583 20 Output Total 387 276 Balance 379.439 363.583 20 Weight 170 kg Intake: IV 540 220 20 Dextrose 5% in Water 100 300 ml @ 618 mls/hr IV .Q10M ONE with Amiodarone 150 mg Rx#:[id number] LR 20 Lactated Ringers 1,000 ml 220 220 20 @ 20 mls/hr IV .Q24H [facility] Rx#:[id number] Intake, IV Titration 226.439 219.583 Amount Amiodarone 300 mg In 219.167 199.583 Dextrose 5% in Water 250 ml @ 0.5 MG/MIN 25 mls/hr IV .Q10H PRN Rx#: [id number] Insulin Regular 100 unit 7.272 In Sodium Chloride 0.9% 100 ml @ Per Protocol IV .Q0M [facility] Rx#:[id number] Lactated Ringers 1,000 ml 20 @ 20 mls/hr IV .Q24H [facility] Rx#:[id number] Oral 200 Output: Urine 387 275 Emesis 1 Other: Voiding Method Bedside Commode Bedside Commode ABP, PAP, CO, CI - Last Documented Arterial Blood Pressure 99/62 Pulmonary Artery Pressure 32/19 Cardiac Output 6.3 Cardiac Index 2.4 - Constitutional General appearance: Present: cooperative, morbidly obese, no acute distress - Respiratory Details: Lungs sounds essentially clear to her bilateral upper lobes, diminished her bilateral bases. Respirations are symmetrical and nonlabored. Oxygen saturation is 95% on 2 L nasal cannula. Achieving 750 mL on her incentive spirometry. - Cardiovascular Details: Irregular rhythm and tachycardic rate consistent with atrial fibrillation. S1 and S2 present, negative for S3, gallop or murmur. Sternum is stable. Surgical support and heart hugger in place and she is demonstrating appropriate use of her heart hugger. Knee-high ZAINAB hose and sequential compression devices in pl jae for bilateral lower extremities. - Gastrointestinal Gastrointestinal Comment(s): Abdomen is soft, nontender and nondistended. Hypoactive bowel sounds present all 4 abdominal quadrants. No guarding or rigidity. No organomegaly appreciated. Emesis x 1. - Genitourinary Genitourinary Comment(s): Voiding clear sofya urine. - Integumentary Integumentary Comment(s): Skin is warm and dry. No clubbing or cyanosis is present. No rash or abnormal pigmentation is present. Midline sternal incision is clean, dry and approximated. No drainage or redness is present. Left arm radial artery harvest sites clean, dry and approximated. No drainage or redness is present. Right lower extremity EVH sites clean, dry and approximated. No drainage or redness is present. - Neurologic Neurologic Comment(s): No focal deficits. Neurologic: Present: CNII-XII intact - Musculoskeletal Musculoskeletal: Present: gait normal, generalized weakness, strength equal bilaterally - Psychiatric Psychiatric: Present: A&O x's 3, appropriate affect, intact judgment & insight - Allied health notes Allied health notes reviewed: nursing - Labs CBC & Chem 7: 06/25/19 05:45 06/25/19 05:45 Labs: Abnormal Lab Results - Last 24 Hours (Table) 06/24/19 06/24/19 06/24/19 Range/Units 09:01 10:04 11:04 RBC (3.80-5.40) m/uL Hgb (11.4-16.0) gm/dL Hct (34.0-46.0) % Neutrophils # (1.3-7.7) k/uL Sodium (137-145) mmol/L BUN (7-17) mg/dL Glucose (74-99) mg/dL POC Glucose (mg/dL) 139 H 162 H 216 H (75-99) mg/dL AST (14-36) U/L Alkaline Phosphatase (38-126) U/L Total Protein (6.3-8.2) g/dL Albumin (3.5-5.0) g/dL 06/24/19 06/24/19 06/24/19 Range/Units 12:11 17:06 21:25 RBC (3.80-5.40) m/uL Hgb (11.4-16.0) gm/dL Hct (34.0-46.0) % Neutrophils # (1.3-7.7) k/uL Sodium (137-145) mmol/L BUN (7-17) mg/dL Glucose (74-99) mg/dL POC Glucose (mg/dL) 212 H 203 H 212 H (75-99) mg/dL AST (14-36) U/L Alkaline Phosphatase (38-126) U/L Total Protein (6.3-8.2) g/dL Albumin (3.5-5.0) g/dL 06/25/19 06/25/19 06/25/19 Range/Units 02:10 05:45 05:45 RBC 3.50 L (3.80-5.40) m/uL Hgb 9.2 L (11.4-16.0) gm/dL Hct 29.5 L (34.0-46.0) % Neutrophils # 7.9 H (1.3-7.7) k/uL Sodium 136 L (137-145) mmol/L BUN 29 H (7-17) mg/dL Glucose 130 H (74-99) mg/dL POC Glucose (mg/dL) 162 H (75-99) mg/dL AST 40 H (14-36) U/L Alkaline Phosphatase 136 H (38-126) U/L Total Protein 6.2 L (6.3-8.2) g/dL Albumin 3.2 L (3.5-5.0) g/dL 06/25/19 Range/Units 06:59 RBC (3.80-5.40) m/uL Hgb (11.4-16.0) gm/dL Hct (34.0-46.0) % Neutrophils # (1.3-7.7) k/uL Sodium (137-145) mmol/L BUN (7-17) mg/dL Glucose (74-99) mg/dL POC Glucose (mg/dL) 114 H (75-99) mg/dL AST (14-36) U/L Alkaline Phosphatase (38-126) U/L Total Protein (6.3-8.2) g/dL Albumin (3.5-5.0) g/dL - Imaging and Cardiology Chest x-ray: report reviewed, image reviewed Assessment and Plan Assessment: 1. Coronary arterial sclerosis, status post four-vessel coronary artery bypass grafting surgery 2. Uncontrolled insulin-dependent diabetes mellitus with a preoperative hemoglobin A1c of 12.4 3. History of hypertension 4. Hyperlipidemia 5. Asthma 6. Obstructive sleep apnea with home CPAP use 7. Morbid obesity with an admission BMI of 56 8. Remote history of pneumonia 9. Family history of diabetes and hypertension 10. Postoperative acute blood loss anemia, an expected outcome 11. Postoperative paroxysmal atrial fibrillation, an unexpected but potential outcome of surgery Plan: 1. Continue to maximize medical therapy with aspirin, Cozaar, Plavix, statin, and beta gregorio. We will increase her metoprolol tartrate 50 mg by mouth 2 times a day. 2. Bronchodilators management per pulmonary medicine. Wean oxygen as tolerated. 3. Encourage increase in activity. Physical therapy, occupational therapy and cardiac rehabilitation following. 4. Encourage use of her incentive spirometry every hour while awake. 5. Medical management, Insulin management and other comorbidities management per primary care service. 6. Continue Lasix 40 mg IV to 12 hours. 7. Continue GI and DVT prophylaxis. 8. Increase Cardizem to 60 mg by mouth 3 times a day for radial artery spasm prophylaxis. Do not discontinue unless okayed by cardiothoracic surgery. 9. Continue amiodarone 400 mg by mouth twice a day for atrial fibrillation prophylaxis. 10. Continue home dose of Singulair. 11. Continue Reglan 10 mg IV to 6 hours. 12. Continue to monitor daily labs and chest x-rays 13. Continue surgical support bra, continue to encourage use of her heart hugger. 14. Pain management per current when necessary orders. 15. Discontinue Toradol. 16. Dulcolax suppository 1 now. 17. More recommendations to follow based on patient's clinical course. Time with Patient: Greater than 30
[2019-06-25] MEDS ORDERED: BISACODYL 10 MG SUPP RECTAL STA (08:54)
[2019-06-25] MEDS ORDERED: METOPROLOL TARTRATE 25 MG TAB PO SCH ×3 (09:00)
[2019-06-25] MEDS: METOPROLOL TARTRATE 50 MG TAB PO SCH ×2 (09:53→21:41)
[2019-06-25] MEDS: FUROSEMIDE 10 MG/ML 4 ML VIAL IV SCH ×2 (09:53→22:39)
[2019-06-25] MEDS: CLOPIDOGREL 75 MG TAB PO SCH (09:54)
[2019-06-25] MEDS: ATORVASTATIN 40 MG TAB PO SCH (09:54)
[2019-06-25] MEDS: AMIODARONE 200 MG TAB PO SCH ×2 (09:54→21:41)
[2019-06-25] MEDS: DILTIAZEM ORAL 30 MG TAB PO SCH ×3 (09:55→22:41)
[2019-06-25] MEDS: ASPIRIN 325 MG TAB PO SCH (09:57)
[2019-06-25] MEDS: ACETAMINOPHEN TAB 500 MG TAB PO PRN (10:27)
[2019-06-25 10:59] LABS: Glucose,Whole Blood 131 mg/dL (75-99)
[2019-06-25 11:22] LABS: Ferritin 327.9 ng/mL (10.0-291.0); Iron Saturation 1.46 (12.00-45.00)
[2019-06-25] MEDS ORDERED: DEXTROSE 5% IN WATER 100 ML with AMIODARONE 150 MG IV ONE (11:52)
[2019-06-25 11:58] LABS: Glucose,Whole Blood 131 mg/dL (75-99)
[2019-06-25] MEDS: LOSARTAN 25 MG TAB PO SCH (12:35)
[2019-06-25] MEDS: MULTIVITAMINS, THERA 1 EACH TAB PO SCH (12:35)
[2019-06-25] MEDS: METOCLOPRAMIDE 5 MG/ML 2 ML VIAL IVP SCH ×2 (12:35→18:09)
[2019-06-25 14:37] LABS: Glucose,Whole Blood 178 mg/dL (75-99)
[2019-06-25] MEDS: TRIMETHOBENZAMIDE 100 MG/ML 2 ML VIAL IM PRN ×2 (14:47→23:06)
[2019-06-25] MEDS ORDERED: DIGOXIN 250 MCG/ML 2 ML AMP IVP STA (16:35)
--- NOTE | 2019-06-25 17:29 | XR ---
EXAMINATION TYPE: XR KUB DATE OF EXAM: 06/25/2019 COMPARISON: 12/27/2014 HISTORY: Nausea and vomiting TECHNIQUE: 2 views upright FINDINGS: There is no sign of intestinal obstruction or pneumoperitoneum. Fecal pattern is normal. Th ere are no pathologic calcifications over the kidneys. IMPRESSION: Nonacute abdomen.
[2019-06-25 17:40] LABS: Glucose,Whole Blood 180 mg/dL (75-99)
[2019-06-25 18:10] LABS: Appearance,Urine Cloudy (Clear); Bilirubin,Urine Negative (Negative); Blood,Urine Large (Negative); Color,Urine Light Red; Glucose,Urine (UA) Negative (Negative); Ketones,Urine Trace (Negative); Leukocyte Esterase,Urine Large (Negative); Mucus,Urine Many /hpf; Nitrite,Urine Negative (Negative); Protein,Urine 1+ (Negative); RBC,Urine >182 /hpf (0-5); Specific Gravity,Urine 1.025 (1.001-1.035); Urobilinogen,Urine <2.0 mg/dL (<2.0)
--- NOTE | 2019-06-25 18:13 | P.PN ---
Subjective Progress Note Date: 06/25/19 (Delayed charting seen at 9 AM) Principal diagnosis: Exertional dyspnea Patient is a 53-year-old -[place] female with a past medical history of diabetes mellitus type 2 insulin-dependent poorly controlled with A1c of 12.4, morbid obesity with BMI of 56.7, hypertension, dyslipidemia, asthma, and chronic pain who presented for elective quadruple bypass. Patient had initially presented here 04/18 with shortness of breath was treated for asthma exacerbation and outpatient cardiac workup was recommended once wheezing was better controlled. She ultimately underwent cardiac catheterization on 06/14 was found have triple-vessel coronary artery disease and coronary artery bypass grafting was recommended. Patient does follow with Dr. Delvalle for her asthma. Patient underwent four-vessel bypass surgery on 06/[address] Montanez resulting in a HERNDON to the diagonal and LAD, left radial artery to the OM, SVG to the PDA, along with clipping of the left atrial appendage. She had 2 episode of intraop a fib requiring cardioversion. She was extubated the same day as her procedure 06/22. She went into sustained A fib on 06/23 requiring amio bolus. Continues to have nausea and vomiting. Patient seen and examined at bedside. Still feeling very sleepy and fatigued, having some nausea and repeated vomiting this morning. Chest pain is better. Mild shortness of breath. Objective - Vital Signs Vital signs: Vital Signs Temp 98.1 F 06/25/19 16:00 Pulse 110 H 06/25/19 16:00 Resp 32 H 06/25/19 16:00 BP 117/82 06/25/19 16:00 Pulse Ox 98 06/25/19 16:00 Intake & Output 06/24/19 06/25/19 06/25/19 18:59 06:59 18:59 Intake Total 766.439 639.583 20 Output Total 944 361 1848 Balance 379.439 363.583 -1994 Weight 170 kg 170 kg Intake: IV 540 220 20 Dextrose 5% in Water 100 300 ml @ 618 mls/hr IV .Q10M ONE with Amiodarone 150 mg Rx#:[id number] LR 20 Lactated Ringers 1,000 ml 220 220 20 @ 20 mls/hr IV .Q24H [facility] Rx#:[id number] Intake, IV Titration 226.439 219.583 Amount Amiodarone 300 mg In 219.167 199.583 Dextrose 5% in Water 250 ml @ 0.5 MG/MIN 25 mls/hr IV .Q10H PRN Rx#: [id number] Insulin Regular 100 unit 7.272 In Sodium Chloride 0.9% 100 ml @ Per Protocol IV .Q0M [facility] Rx#:[id number] Lactated Ringers 1,000 ml 20 @ 20 mls/hr IV .Q24H [facility] Rx#:[id number] Oral 200 Output: Urine 474 233 8737 Post Void Residual 500 Emesis 1 4 Other: Voiding Method Bedside Commode Bedside Commode Indwelling Catheter # Bowel Movements 2 ABP, PAP, CO, CI - Last Documented Arterial Blood Pressure 99/62 Pulmonary Artery Pressure 32/19 Cardiac Output 6.3 Cardiac Index 2.4 - Exam General: non toxic, no distress, morbidly obese, appears older than stated age Derm: warm, diaphoretic Head: atraumatic, normocephalic, symmetric Eyes: EOMI, no lid lag, anicteric sclera Mouth: no lip lesion, mucus membranes moist Cardiovascular: S1-S2 irregular, no murmur Lungs: Decreased breath sounds bilateral, no rhonchi, no rales , no accessory muscle use Abdominal: soft, nontender to palpation, no guarding, no appreciable organomegaly Ext: no gross muscle atrophy, no edema, no contractures Neuro: CN II-XI grossly intact, no focal neuro deficits Psych: lethargic, appropriately answers questions when awake, appropriate affect - Labs CBC & Chem 7: 06/25/19 05:45 06/25/19 05:45 Labs: Abnormal Lab Results - Last 24 Hours (Table) 06/24/19 06/24/19 06/25/19 Range/Units 04:24 21:25 02:10 RBC (3.80-5.40) m/uL Hgb (11.4-16.0) gm/dL Hct (34.0-46.0) % Neutrophils # (1.3-7.7) k/uL Sodium (137-145) mmol/L BUN (7-17) mg/dL Glucose (74-99) mg/dL POC Glucose (mg/dL) 212 H 162 H (75-99) mg/dL Iron 3 L (50-170) ug/dL TIBC 206 L (228-460) ug/dL Iron Saturation 1.46 L (12.00-45.00) Ferritin 327.9 H (10.0-291.0) ng/mL AST (14-36) U/L Alkaline Phosphatase (38-126) U/L Total Protein (6.3-8.2) g/dL Albumin (3.5-5.0) g/dL 06/25/19 06/25/19 06/25/19 Range/Units 05:45 05:45 06:59 RBC 3.50 L (3.80-5.40) m/uL Hgb 9.2 L (11.4-16.0) gm/dL Hct 29.5 L (34.0-46.0) % Neutrophils # 7.9 H (1.3-7.7) k/uL Sodium 136 L (137-145) mmol/L BUN 29 H (7-17) mg/dL Glucose 130 H (74-99) mg/dL POC Glucose (mg/dL) 114 H (75-99) mg/dL Iron (50-170) ug/dL TIBC (228-460) ug/dL Iron Saturation (12.00-45.00) Ferritin (10.0-291.0) ng/mL AST 40 H (14-36) U/L Alkaline Phosphatase 136 H (38-126) U/L Total Protein 6.2 L (6.3-8.2) g/dL Albumin 3.2 L (3.5-5.0) g/dL 06/25/19 06/25/19 06/25/19 Range/Units 10:55 11:54 14:34 RBC (3.80-5.40) m/uL Hgb (11.4-16.0) gm/dL Hct (34.0-46.0) % Neutrophils # (1.3-7.7) k/uL Sodium (137-145) mmol/L BUN (7-17) mg/dL Glucose (74-99) mg/dL POC Glucose (mg/dL) 131 H 131 H 178 H (75-99) mg/dL Iron (50-170) ug/dL TIBC (228-460) ug/dL Iron Saturation (12.00-45.00) Ferritin (10.0-291.0) ng/mL AST (14-36) U/L Alkaline Phosphatase (38-126) U/L Total Protein (6.3-8.2) g/dL Albumin (3.5-5.0) g/dL 06/25/19 Range/Units 17:36 RBC (3.80-5.40) m/uL Hgb (11.4-16.0) gm/dL Hct (34.0-46.0) % Neutrophils # (1.3-7.7) k/uL Sodium (137-145) mmol/L BUN (7-17) mg/dL Glucose (74-99) mg/dL POC Glucose (mg/dL) 180 H (75-99) mg/dL Iron (50-170) ug/dL TIBC (228-460) ug/dL Iron Saturation (12.00-45.00) Ferritin (10.0-291.0) ng/mL AST (14-36) U/L Alkaline Phosphatase (38-126) U/L Total Protein (6.3-8.2) g/dL Albumin (3.5-5.0) g/dL Assessment and Plan Assessment: Patient is a 53 yo AAF care with elective 4 vessel bypass surgery. Diabetes mellitus type 2 insulin requiring, uncontrolled - insulin is being managed by cardiothorasic surgery. - Patient currently on levemir 75 units, Novolog 20 with meals (hold for nausea) and SSI -Follow blood sugars closely -Hemoglobin A1c 12.4 -Diabetic educators recs. -Ideally would benefit form outpatient endocrinology evaluation if able to coordinate Intractable vomiting - add tigan - consider KUB if not improved and possible enema if still no BM - could also try phenergan but this will increase he somnolence Acute blood loss anemia, an anticipated outcome of surgery - follow CBC - Fe studies pending mild intermittent asthma - duoneb - at home on dulera, singulair, and ventolin as needed. Morbid obesity with BMI 56.7 - structured outpatient weight loss VU - home CPAP after extubation HTN - management per cardiovascular surgery. Atherosclerotic coronary artery disease status post 4 vessel bypass surgery -Management per cardiovascular surgery A. fib with RVR - lopressor, cardisem, digoxin -Management per cardiovascular surgery Thank you for allowing us to participate in the care of this patient. Dr. Kimble is not currently seeing patients, on discharge can follow-up with Juany Moraes NP and after 07/16 Dr. Stanford will be covering Dr. Kimble's practice.
[2019-06-25 20:43] LABS: Glucose,Whole Blood 173 mg/dL (75-99)
--- NOTE | 2019-06-25 20:56 | PN ---
PROGRESS NOTE Mrs. Condon is in atrial fibrillation. Rate control is better. She went into atrial fibrillation yesterday, has received amiodarone. She has a history of bronchial asthma and COPD as well in addition to diabetes that is poorly controlled. I am recommending that we decrease Lopressor and add Cardizem in view of her bronchospasm. Vitals are stable. S1, S2 heard normally but distantly. Short systolic murmur noted. Scattered rhonchi audible. Abdomen and lower extremity exam otherwise is unchanged. MMODL / IJN: [id number] /
--- NOTE | 2019-06-25 22:01 | PN ---
PROGRESS NOTE DATE OF SERVICE: 06/25/2019 This patient was seen again on 06/25/2019. She has been having some emesis. She continues to have some shortness of breath but is doing better overall. Her IS is 750. On physical examination, her blood pressure is 117/82, respiratory rate of 18, pulse rate 118, temperature 98.1 degrees Fahrenheit. HEENT reveals pupils that are equal. There is redundant tissue in the posterior pharynx. Chest reveals diminished sounds bilaterally. No clear wheeze. Cardiovascular system reveals an S1, S2. Abdomen is soft. There is 1+ pedal edema. KUB x-ray shows no evidence of a bowel obstruction. UA shows large leukocyte esterase with 118 WBCs, large blood with trace ketones. IMPRESSION AT THIS TIME: 1. Coronary artery disease, status post coronary artery bypass. 2. Urinary tract infection. 3. Severe asthma with some fixed obstruction. 4. Obstructive sleep apnea. 5. Atrial fibrillation, new onset. Continue bronchodilators, aerosolized steroids, Singulair. Increase her activity level. Consider inpatient rehab when it gets closer to discharge. She was counseled regarding her condition and this approach. MMODL / IJN: [id number] /
[2019-06-25] MEDS ORDERED: DIGOXIN 250 MCG/ML 2 ML AMP IVP ONE (22:30)
[2019-06-25] MEDS: LATANOPROST 0.005% OPHTH DROPS 2.5 ML BTL BOTH EYES SCH (22:40)
[2019-06-25] MEDS: INSULIN DETEMIR (LEVEMIR) 100 UNIT/ML SYR SQ SCH (22:40)
[2019-06-25] MEDS: MONTELUKAST 10 MG TAB PO SCH (22:40)
[2019-06-25] MEDS: SENNOSIDES-DOCUSATE SODIUM 1 EACH TAB PO SCH (22:40)
[2019-06-26] MEDS: METOCLOPRAMIDE 5 MG/ML 2 ML VIAL IVP SCH ×5 (00:08→22:34)
[2019-06-26] MEDS: HEPARIN SODIUM,PORCINE 5,000 UNIT/ML 1 ML VIAL SQ SCH ×4 (00:08→22:35)
[2019-06-26 02:24] LABS: Glucose,Whole Blood 179 mg/dL (75-99)
[2019-06-26] MEDS ORDERED: DIGOXIN 250 MCG/ML 2 ML AMP IVP ONE (04:30)
[2019-06-26] MEDS: ONDANSETRON 4 MG/2 ML VIAL IVP PRN ×3 (04:37→17:14)
[2019-06-26] MEDS: ACETAMINOPHEN TAB 500 MG TAB PO PRN (04:48)
[2019-06-26 06:10] LABS: Basophils # (A) 0.1 k/uL (0-0.2); Basophils % (A) 1 %; Eosinophils # (A) 0.2 k/uL (0-0.7); Eosinophils % (A) 1 %; HGB 9.8 gm/dL (11.4-16.0); Hypochromasia Moderate; Lymphocytes # (A) 1.6 k/uL (1.0-4.8); Lymphocytes % (A) 15 %; MCH 25.1 pg (25.0-35.0); MCHC 29.6 g/dL (31.0-37.0); Mean Platelet Volume 7.2; Monocytes # (A) 0.7 k/uL (0-1.0); Monocytes % (A) 7 %; Neutrophils # (A) 7.7 k/uL (1.3-7.7); Neutrophils % (A) 74 %; Platelet Count 375 k/uL (150-450); RBC 3.88 m/uL (3.80-5.40); WBC 10.4 k/uL (3.8-10.6)
[2019-06-26] MEDS: IPRATROPIUM-ALBUTEROL 3 ML NEB INHALATION SCH ×4 (06:10→20:46)
[2019-06-26] MEDS: BUDESONIDE 0.5 MG/2 ML NEBU INHALATION SCH ×2 (06:11→20:46)
[2019-06-26 06:25] LABS: ALT 52 U/L (9-52); AST 45 U/L (14-36); African American GFR (CKD) >90 (>60 ml/min/1.73 sqM); Albumin 3.4 g/dL (3.5-5.0); Alkaline Phosphatase 148 U/L (38-126); Anion Gap 9 mmol/L; Blood Urea Nitrogen 25 mg/dL (7-17); Calcium 8.8 mg/dL (8.4-10.2); Carbon Dioxide 26 mmol/L (22-30); Chloride 102 mmol/L (98-107); Glucose 154 mg/dL (74-99); Potassium 4.4 mmol/L (3.5-5.1); Sodium 137 mmol/L (137-145); Total Bilirubin 0.8 mg/dL (0.2-1.3); Total Protein 6.6 g/dL (6.3-8.2)
[2019-06-26] MEDS: PANTOPRAZOLE 40 MG TABLET PO SCH (08:03)
[2019-06-26] MEDS: INSULIN ASPART (NovoLOG) 100 UNIT/ML VIAL SQ SCH ×7 (08:03→21:08)
[2019-06-26 08:07] LABS: Glucose,Whole Blood 150 mg/dL (75-99)
--- NOTE | 2019-06-26 08:24 | XR ---
EXAMINATION TYPE: XR chest 2V DATE OF EXAM: 06/26/2019 COMPARISON: Prior chest x-ray 06/25/2019 HISTORY: Postop coronary artery bypass graft, abnormal chest x-ray TECHNIQUE: Frontal and lateral views of the chest are obtained. FINDINGS: Patient is post median sternotomy and atrial appendage clipping placement. There are overl nas cardiac leads. No evident pneumothorax. Bibasilar increased density is noted, some improvement i n visualization of the right hemidiaphragm. Heart is enlarged. Patient is rotated. Aorta appears dens e. Central vascularity is prominent. IMPRESSION: Probable basilar atelectasis and associated effusions, correlate to exclude pneumonia. C ardiomegaly. There may be some improvement in volume status as compared to previous exam, some improv ed aeration.
[2019-06-26] MEDS ORDERED: POLYETHYLENE GLYCOL 3350 17 GM POWD.PACK PO STA (08:25)
--- NOTE | 2019-06-26 08:46 | P.PN ---
Subjective Progress Note Date: 06/26/19 Principal diagnosis: Coronary artery disease, status post bypass grafting, postoperative day 4 This is a 53-year-old -[place] female, history of multiple medical problems including asthma, type 2 diabetes, recently admitted to the hospital on 04/18/2019, and she was discharged on 04/19/2019. Patient was admitted with mostly shortness of breath and wheezing. Patient was treated mostly for bronchial asthma exacerbation, underwent CT angiogram of the chest, and it showed significant coronary artery calcifications. Her d-dimer at the time was 0.75, troponin was less than 0.012, patient was treated mostly for asthma exacerbation, however she was seen by cardiology on consultation, and recommended outpatient workup for her coronary artery calcification. Apparently since discharge, the patient underwent cardiac catheterization on 06/14/2019, and she was found to have triple-vessel coronary artery disease with significant disease in mid segment of the RCA and 60% lesion in the proximal and midportion of the LAD and the branch of the circumflex was diffusely diseased. Diagonal branch of the LAD had significant disease. Hence the patient was advised to undergo coronary artery bypass surgery. I was asked to see the patient on consultation postoperatively today, patient normally sees Dr. Stephanie jaeger for her asthma. However he does not have ICU privileges, therefore I was asked to see her for ICU management. Presently the patient is on mechanical ventilation, she is on assist control mode rate of 14. Tidal volume is 490, PEEP is 10, and FiO2 is 100%. ABG showed a pO2 of more than 400 pCO2 of 40 pH of 7.37. Hence her FiO2 will be cut down to 45%, and we will eventually cut down the PEEP from 10 to 5. Postoperative chest x-ray showed endotracheal tube in the proper position. Mild interstitial changes noted, no evidence of pneumothorax, and in no evidence of infiltrate. Small tiny pleural effusions noted. Bilateral hilar fullness noted, however recent CT of the chest showed no evidence of by hilar lymphadenopathy. Reevaluated today on 06/23/2019, patient remains in the ICU, she was extubated last night. Hours after her surgery. Patient is hemodynamically stable. Her cardiac index is 2.9, PA pressure is 28/12 CVP is 12. She is presently on Cardizem drip at 5 mg per hour. She is on 4 L nasal cannula with O2 saturation 96%. She is definitely doing poorly with incentive spirometry, but that will likely improve over the next 24 hours. Mediastinal and left pleural chest tubes are in place to low continuous wall suction no air leak is noted. Had 450 ML of serosanguineous drainage since surgery. Patient seems to be comfortable, opens eyes with verbal stimuli, but she seems to be very tired. She was taken off insulin early this morning. Sugars are running in in the 120 range. Labs were reviewed. Sat is 9.6 hemoglobin is 9.9. Electrolytes and renal profile are normal. Chest x-ray showed mostly bibasilar atelectasis and small bilateral pleural effusions. Reevaluated today on 06/24/2019, patient remains in the intensive care unit, denies shortness of breath, had an episode of atrial fibrillation with RVR this morning, and the patient was placed on amiodarone drip. Presently on 3 L nasal cannula, and the patient had intermittent episodes of obstructive sleep apnea noted by the nurses at bedside. Hence I recommended intermittently using BiPAP at 12/4, and the patient could actually get her BiPAP machine from home and use it as needed and especially at night when she sleeps. Her O2 saturations 97% on 3 L, on her incentive spirometry, she is achieving 750 ML. Her mediastinal and left pleural chest tubes were removed yesterday. Patient seems to be a bit sleepy today, hence I believe she will benefit from having her own CPAP machine. Patient did receive 20 mg of Lasix yesterday, and she diuresed quite well.chest x-ray today showed mostly bibasilar atelectasis and small bilateral pleural effusions.CBC is basically unremarkable hemoglobin is 8.8.basic metabolic profile and renal profile are normal.blood sugar is 138 this morning. On 06/26/2019 patient seen in follow-up in intensive care unit, she is awake and alert, in no acute distress, currently on 2 L of oxygen, she has been wearing BiPAP at night, with pressures of 12 and 4 and FiO2 of 28%, she states her breathing is improving, still somewhat short of breath especially with exertion, etc. spirometry effort is 700-800 today, she remains on IV Lasix 40 mg every 12 hours, diuresing, today's chest x-ray has been reviewed with Dr. Adams, showing bilateral pleural effusions, left greater than the right, with a slight improvement in aeration. She is in negative fluid balance, -2900 ML last 24 hours. She remains in A. fib, and the rate is better controlled, she is on oral Cardizem, and oral beta blockers, amiodarone drip has been discontinued, no IVs, Argueta yesterday was discontinued but patient was having some retention issues a nd it was reinserted, slightly pink tinged, and urinalysis came back as a for signs of infection, patient has been started on ciprofloxacin Objective - Vital Signs Vital signs: Vital Signs Temp 97.7 F 06/26/19 08:00 Pulse 106 H 06/26/19 08:00 Resp 26 H 06/26/19 08:00 BP 129/87 06/26/19 08:00 Pulse Ox 97 06/26/19 08:00 Intake & Output 06/25/19 06/26/19 06/26/19 18:59 06:59 18:59 Intake Total 20 Output Total 2015 950 500 Balance -1995950 Weight 170 kg 170 kg Intake: IV 20 Lactated Ringers 1,000 ml 20 @ 20 mls/hr IV .Q24H [facility] Rx#:[id number] Output: Urine 1510 950 500 Post Void Residual 500 Emesis 6 Other: Voiding Method Indwelling Catheter Indwelling Catheter # Bowel Movements 2 ABP, PAP, CO, CI - Last Documented Arterial Blood Pressure 99/62 Pulmonary Artery Pressure 32/19 Cardiac Output 6.3 Cardiac Index 2.4 - Exam GENERAL EXAM: Alert, pleasant, 53-year-old -[place] female, on 2 L of oxygen, comfortable in no apparent distress. HEAD: Normocephalic/atraumatic. EYES: Normal reaction of pupils, equal size. Conjunctiva pink, sclera white. NOSE: Clear with pink turbinates. THROAT: No erythema or exudates. NECK: No masses, no JVD, no thyroid enlargement, no adenopathy. CHEST: No chest wall deformity. Symmetrical expansion. midsternal incisions clean dry and intact, chest tube sites are clean dry and intact LUNGS: Diminished air entry with no crackles, wheeze, rhonchi or dullness. CVS: Regular rate and rhythm, normal S1 and S2, no gallops, no murmurs, no rubs ABDOMEN: Soft, nontender. No hepatosplenomegaly, normal bowel sounds, no guarding or rigidity. EXTREMITIES: No clubbing, no edema, no cyanosis, 2+ pulses and upper and lower extremities. Right leg incision clean dry and intact, covered with a dressing MUSCULOSKELETAL: Muscle strength and tone normal. SPINE: No scoliosis or deformity SKIN: No rashes CENTRAL NERVOUS SYSTEM: Alert and oriented -3. No focal deficits, tone is normal in all 4 extremities. PSYCHIATRIC: Alert and oriented -3. Appropriate affect. Intact judgment and insight. - Labs CBC & Chem 7: 06/26/19 05:24 06/26/19 05:24 Labs: Abnormal Lab Results - Last 24 Hours (Table) 06/24/19 06/25/19 06/25/19 Range/Units 04:24 10:55 11:54 Hgb (11.4-16.0) gm/dL Hct (34.0-46.0) % MCHC (31.0-37.0) g/dL BUN (7-17) mg/dL Glucose (74-99) mg/dL POC Glucose (mg/dL) 131 H 131 H (75-99) mg/dL Iron 3 L (50-170) ug/dL TIBC 206 L (228-460) ug/dL Iron Saturation 1.46 L (12.00-45.00) Ferritin 327.9 H (10.0-291.0) ng/mL AST (14-36) U/L Alkaline Phosphatase (38-126) U/L Albumin (3.5-5.0) g/dL Urine Appearance (Clear) Urine Protein (Negative) Urine Ketones (Negative) Urine Blood (Negative) Ur Leukocyte Esterase (Negative) Urine RBC (0-5) /hpf Urine WBC (0-5) /hpf Urine Mucus (None) /hpf 06/25/19 06/25/19 06/25/19 Range/Units 14:34 17:36 17:43 Hgb (11.4-16.0) gm/dL Hct (34.0-46.0) % MCHC (31.0-37.0) g/dL BUN (7-17) mg/dL Glucose (74-99) mg/dL POC Glucose (mg/dL) 178 H 180 H (75-99) mg/dL Iron (50-170) ug/dL TIBC (228-460) ug/dL Iron Saturation (12.00-45.00) Ferritin (10.0-291.0) ng/mL AST (14-36) U/L Alkaline Phosphatase (38-126) U/L Albumin (3.5-5.0) g/dL Urine Appearance Cloudy H (Clear) Urine Protein 1+ H (Negative) Urine Ketones Trace H (Negative) Urine Blood Large H (Negative) Ur Leukocyte Esterase Large H (Negative) Urine RBC >182 H (0-5) /hpf Urine WBC 118 H (0-5) /hpf Urine Mucus Many H (None) /hpf 06/25/19 06/26/19 06/26/19 Range/Units 20:29 02:10 05:24 Hgb 9.8 L (11.4-16.0) gm/dL Hct 33.0 L (34.0-46.0) % MCHC 29.6 L (31.0-37.0) g/dL BUN (7-17) mg/dL Glucose (74-99) mg/dL POC Glucose (mg/dL) 173 H 179 H (75-99) mg/dL Iron (50-170) ug/dL TIBC (228-460) ug/dL Iron Saturation (12.00-45.00) Ferritin (10.0-291.0) ng/mL AST (14-36) U/L Alkaline Phosphatase (38-126) U/L Albumin (3.5-5.0) g/dL Urine Appearance (Clear) Urine Protein (Negative) Urine Ketones (Negative) Urine Blood (Negative) Ur Leukocyte Esterase (Negative) Urine RBC (0-5) /hpf Urine WBC (0-5) /hpf Urine Mucus (None) /hpf 06/26/19 06/26/19 Range/Units 05:24 07:41 Hgb (11.4-16.0) gm/dL Hct (34.0-46.0) % MCHC (31.0-37.0) g/dL BUN 25 H (7-17) mg/dL Glucose 154 H (74-99) mg/dL POC Glucose (mg/dL) 150 H (75-99) mg/dL Iron (50-170) ug/dL TIBC (228-460) ug/dL Iron Saturation (12.00-45.00) Ferritin (10.0-291.0) ng/mL AST 45 H (14-36) U/L Alkaline Phosphatase 148 H (38-126) U/L Albumin 3.4 L (3.5-5.0) g/dL Urine Appearance (Clear) Urine Protein (Negative) Urine Ketones (Negative) Urine Blood (Negative) Ur Leukocyte Esterase (Negative) Urine RBC (0-5) /hpf Urine WBC (0-5) /hpf Urine Mucus (None) /hpf Microbiology - Last 24 Hours (Table) 06/25/19 17:43 Urine Culture - Preliminary Urine,Voided Assessment and Plan Plan: 1 Status post CABG, postoperative day#4. Patient had off-pump CABG 4 with sequential HERNDON to diagonal and LAD, left radial artery to obtuse margin, SVG to PDA and she had clipping of the left atrial appendage. 2 history of mild intermittent asthma, presently inactive, however the patient will be placed on DuoNeb updrafts 4 times a day and when necessary. 3 morbid obesity 4 type 2 diabetes 5 seasonal ALLERGIC rhinitis. 6 history of obstructive sleep apnea syndrome uses CPAP at home. 7 benign essential hypertension 8 mixed hyperlipidemia 9 postoperative atelectasis, expected post surgery. Patient was advised to continue incentive spirometry. 10 small bilateral pleural effusions with postobstructive atelectasis noted on chest x-ray today, patient will likely benefit from gentle diuresis and more incentive spirometer. 11 A. fib with RVR, and expected outcome of bypass grafting surgery, rate is better controlled, currently on oral Cardizem and metoprolol, has been loaded with amiodarone 12 acute Urinary tract infection 13 bilateral pleural effusions Plan: Continue encouraging deep breathing and coughing, incentive spirometry use, today's chest x-ray showed bilateral pleural effusions, greater than right, continue with IV diuretics, patient is maintaining negative fluid balance, will obtain ultrasound of the chest, and if it shows sizable fluid pockets may consult interventional radiology for thoracentesis. Continue with BiPAP support as needed, encourage activity as tolerated, encouraged to patient to sit up in the chair, ambulate, breathing treatments, will continue to follow I performed a history & physical examination of the patient and discussed their management with my nurse practitioner, Maria De Jesus Simmons. I reviewed the nurse practitioner's note and agree with the documented findings and plan of care. Lung sounds are positive for diminished breath sounds. The findings and the impression was discussed with the patient. I attest to the documentation by the nurse practitioner. Time with Patient: Less than 30
[2019-06-26] MEDS ORDERED: METOPROLOL TARTRATE 50 MG TAB PO SCH (09:00)
[2019-06-26] MEDS ORDERED: DILTIAZEM ORAL 30 MG TAB PO SCH (09:00)
[2019-06-26] MEDS: FUROSEMIDE 10 MG/ML 4 ML VIAL IV SCH ×2 (09:06→21:22)
--- NOTE | 2019-06-26 09:06 | P.PN ---
Subjective Progress Note Date: 06/26/19 Principal diagnosis: Coronary arteriosclerosis, history of hypertension, hyperlipidemia, uncontrolled insulin dependent diabetes with hyperglycemia and her preoperative hemoglobin A1c of 12.4, asthma, obstructive sleep apnea with home CPAP use, morbid obesity with a BMI of 56, remote history of pneumonia and family history of diabetes and hypertension. POD #4 off-pump coronary artery bypass grafting surgery 4 vessels with sequential HERNDON to the diagonal coronary artery and left anterior descending coronary artery, a left radial artery to the obtuse marginal coronary artery, a reverse saphenous vein graft to the PDA with an endovascular harvesting of the left radial artery and greater saphenous vein. Clipping of the left atrial appendage using a 35 mm Atriclip. Postoperative acute blood loss anemia, an expected outcome of surgery due to hemodilution. Postoperative paroxysmal atrial fibrillation, an unexpected but potential outcome of surgery. Postoperative intractable vomiting, an unexpected outcome. Postoperative urinary retention, requiring reinitiation of Argueta catheter, an unexpected outcome. The patient is laying in bed in the intensive care unit. She is in no acute distress. The patient is more alert today although continues to complain of episodes of nausea with 2 emesis throughout the night. A KUB x-ray was completed yesterday due to her continued complaints of nausea and vomiting, which demonstrated no acute abdomen. Denies any complaints of pain or shortness of breath. She remains in atrial fibrillation with heart rate 100 BPM. She remains on amiodarone for atrial fibrillation prophylaxis. Digoxin was also initiated yesterday for her persistent paroxysmal atrial fibrillation. She remains hemodynamically stable and is currently on no inotropic or pressor support. Oxygen saturation saturations are 95% on 2 L nasal cannula. She is achieving 750 mL on her incentive spirometry. Throughout the night the patient is using her home CPAP unit as she has a history of obstructive sleep apnea. The patient had some urinary retention yesterday, a bladder scan was completed which showed her to have greater than 500 mL. A Argueta catheter was placed due to the urinary retention. The patient ambulated 3 times yesterday with assist ance from nursing and physical therapy and walked from her room in the intensive care unit to the nurse's station. Lasix 40 mg IV every [address] and she has diuresed 2.4 L in the last 24 hours. Laboratory results this morning show a WBC count of 10.4, hemoglobin 9.8, hematocrit 33.0, platelets 375, BUN 25, creatinine 0.71 and an AST of 45. Chest x-ray this morning demonstrates basilar atelectasis, pleural effusions. Objective - Vital Signs Vital signs: Vital Signs Temp 98.4 F 06/26/19 04:00 Pulse 99 06/26/19 06:22 Resp 27 H 06/26/19 04:00 BP 121/74 06/26/19 04:00 Pulse Ox 95 06/26/19 04:00 Intake & Output 06/25/19 06/26/19 06/26/19 18:59 06:59 18:59 Intake Total 20 Output Total 2015 950 Balance -1995 -950 Weight 170 kg 170 kg Intake: IV 20 Lactated Ringers 1,000 ml 20 @ 20 mls/hr IV .Q24H [facility] Rx#:[id number] Output: Urine 1510 950 Post Void Residual 500 Emesis 6 Other: Voiding Method Indwelling Catheter Indwelling Catheter # Bowel Movements 2 ABP, PAP, CO, CI - Last Documented Arterial Blood Pressure 99/62 Pulmonary Artery Pressure 32/19 Cardiac Output 6.3 Cardiac Index 2.4 - Constitutional General appearance: Present: cooperative, morbidly obese, no acute distress - Respiratory Details: Lung sounds essentially clear to her bilateral upper lobes, diminished her b ilateral bases. No wheezes, rhonchi or crackles appreciated. Respirations are symmetrical and nonlabored. Oxygen saturation is 95% on 2 L nasal cannula. Achieving 750 mL on her incentive spirometry. - Cardiovascular Details: Irregular rhythm and tachycardic rate consistent with atrial fibrillation. S1 and S2 present, negative for S3, gallop or murmur. Sternum is stable. Surgical support bra in place with a heart hugger, she is demonstrating appropriate use on her heart hugger. +1 generalized edema. Knee-high ZAINAB hose and sequential compression devices in place to bilateral lower extremities. - Gastrointestinal Gastrointestinal Comment(s): Abdomen is soft, nontender and nondistended. Active bowel sounds present all 4 abdominal quadrants. No guarding or rigidity. No organomegaly appreciated. Morbidly obese. - Genitourinary Genitourinary Comment(s): Argueta catheter for accurate I&O and urinary retention. Draining cloudy sofya urine with 950 mL output in the last 8 hours. - Integumentary Integumentary Comment(s): Skin is warm and dry. No clubbing or cyanosis is present. Midline sternal incision is clean, dry and approximated. No drainage or redness present. Left arm radial artery harvest site clean, and intact. No drainage or redness is present. Right lower extremity EVH site clean, and approximated. Scant serous drainage present. - Neurologic Neurologic Comment(s): No focal deficits. Neurologic: Present: CNII-XII intact - Musculoskeletal Musculoskeletal: Present: generalized weakness, strength equal bilaterally - Psychiatric Psychiatric: Present: A&O x's 3, appropriate affect, intact judgment & insight - Allied health notes Allied health notes reviewed: nursing - Labs CBC & Chem 7: 06/26/19 05:24 06/26/19 05:24 Labs: Abnormal Lab Results - Last 24 Hours (Table) 06/24/19 06/25/19 06/25/19 Range/Units 04:24 10:55 11:54 Hgb (11.4-16.0) gm/dL Hct (34.0-46.0) % MCHC (31.0-37.0) g/dL BUN (7-17) mg/dL Glucose (74-99) mg/dL POC Glucose (mg/dL) 131 H 131 H (75-99) mg/dL Iron 3 L (50-170) ug/dL TIBC 206 L (228-460) ug/dL Iron Saturation 1.46 L (12.00-45.00) Ferritin 327.9 H (10.0-291.0) ng/mL AST (14-36) U/L Alkaline Phosphatase (38-126) U/L Albumin (3.5-5.0) g/dL Urine Appearance (Clear) Urine Protein (Negative) Urine Ketones (Negative) Urine Blood (Negative) Ur Leukocyte Esterase (Negative) Urine RBC (0-5) /hpf Urine WBC (0-5) /hpf Urine Mucus (None) /hpf 06/25/19 06/25/19 06/25/19 Range/Units 14:34 17:36 17:43 Hgb (11.4-16.0) gm/dL Hct (34.0-46.0) % MCHC (31.0-37.0) g/dL BUN (7-17) mg/dL Glucose (74-99) mg/dL POC Glucose (mg/dL) 178 H 180 H (75-99) mg/dL Iron (50-170) ug/dL TIBC (228-460) ug/dL Iron Saturation (12.00-45.00) Ferritin (10.0-291.0) ng/mL AST (14-36) U/L Alkaline Phosphatase (38-126) U/L Albumin (3.5-5.0) g/dL Urine Appearance Cloudy H (Clear) Urine Protein 1+ H (Negative) Urine Ketones Trace H (Negative) Urine Blood Large H (Negative) Ur Leukocyte Esterase Large H (Negative) Urine RBC >182 H (0-5) /hpf Urine WBC 118 H (0-5) /hpf Urine Mucus Many H (None) /hpf 06/25/19 06/26/19 06/26/19 Range/Units 20:29 02:10 05:24 Hgb 9.8 L (11.4-16.0) gm/dL Hct 33.0 L (34.0-46.0) % MCHC 29.6 L (31.0-37.0) g/dL BUN (7-17) mg/dL Glucose (74-99) mg/dL POC Glucose (mg/dL) 173 H 179 H (75-99) mg/dL Iron (50-170) ug/dL TIBC (228-460) ug/dL Iron Saturation (12.00-45.00) Ferritin (10.0-291.0) ng/mL AST (14-36) U/L Alkaline Phosphatase (38-126) U/L Albumin (3.5-5.0) g/dL Urine Appearance (Clear) Urine Protein (Negative) Urine Ketones (Negative) Urine Blood (Negative) Ur Leukocyte Esterase (Negative) Urine RBC (0-5) /hpf Urine WBC (0-5) /hpf Urine Mucus (None) /hpf 06/26/19 Range/Units 05:24 Hgb (11.4-16.0) gm/dL Hct (34.0-46.0) % MCHC (31.0-37.0) g/dL BUN 25 H (7-17) mg/dL Glucose 154 H (74-99) mg/dL POC Glucose (mg/dL) (75-99) mg/dL Iron (50-170) ug/dL TIBC (228-460) ug/dL Iron Saturation (12.00-45.00) Ferritin (10.0-291.0) ng/mL AST 45 H (14-36) U/L Alkaline Phosphatase 148 H (38-126) U/L Albumin 3.4 L (3.5-5.0) g/dL Urine Appearance (Clear) Urine Protein (Negative) Urine Ketones (Negative) Urine Blood (Negative) Ur Leukocyte Esterase (Negative) Urine RBC (0-5) /hpf Urine WBC (0-5) /hpf Urine Mucus (None) /hpf Microbiology - Last 24 Hours (Table) 06/25/19 17:43 Urine Culture - Preliminary Urine,Voided - Imaging and Cardiology Chest x-ray: report reviewed, image reviewed Assessment and Plan Assessment: 1. Coronary arterial sclerosis, status post four-vessel coronary artery bypass grafting surgery 2. Uncontrolled insulin-dependent diabetes mellitus with a preoperative hemoglobin A1c of 12.4 3. History of hypertension 4. Hyperlipidemia 5. Asthma 6. Obstructive sleep apnea with home CPAP use 7. Morbid obesity with an admission BMI of 56 8. Remote history of pneumonia 9. Family history of diabetes and hypertension 10. Postoperative acute blood loss anemia, an expected outcome 11. Postoperative paroxysmal atrial fibrillation, an unexpected but potential outcome of surgery 12. Postoperative urinary retention, requiring reinitiation of Argueta catheter, an unexpected outcome Plan: 1. Continue to maximize medical therapy with aspirin, Cozaar, Plavix, statin, and beta gregorio. We will increase her metoprolol tartrate as tolerated. 2. Medical management, Insulin management and other comorbidities management per primary care service. 3. Encourage increase in activity. Physical therapy, occupational therapy and cardiac rehabilitation following. 4. Encourage use of her incentive spirometry every hour while awake. 5. Continue Lasix 40 mg IV to 12 hours. 6. Bronchodilators, CPAP management per pulmonary medicine. Wean oxygen as tolerated. 7. Continue GI and DVT prophylaxis. 8. Continue Cardizem to 60 mg by mouth 3 times a day for radial artery spasm prophylaxis. Do not discontinue unless okayed by cardiothoracic surgery. 9. Discontinue amiodarone due to the patient's complaints of nausea and vomiting. 10. We will empirically start the patient on Cipro 500 mg by mouth twice a day as her UA demonstrated WBC count of 118, and a large leukocyte Estrace present. Urine culture results are pending. 11. Continue Reglan 10 mg IV to 6 hours for her complaints of nausea and vomiting. 12. Continue to monitor daily labs and chest x-rays. We will check a magnesium level this morning. 13. Continue surgical support bra, continue to encourage use of her heart hugger. 14. Pain management per current when necessary orders. 15. Due to the patient's atrial fibrillation she was started on digoxin yesterday with a loading dose and has been started on digoxin 0.25 mg IVP daily. Check digoxin level tomorrow morning 06/27/2019. 16. The patient will be given MiraLAX today per internal medicine. 17. An ultrasound of her chest with markings has been ordered for bilateral pleural effusions. 18. More recommendations to follow based on patient's clinical course. Time with Patient: Greater than 30
[2019-06-26] MEDS: CLOPIDOGREL 75 MG TAB PO SCH (09:07)
[2019-06-26] MEDS: METOPROLOL TARTRATE 50 MG TAB PO SCH ×2 (09:07→21:23)
[2019-06-26] MEDS: ATORVASTATIN 40 MG TAB PO SCH (09:07)
[2019-06-26] MEDS: ASPIRIN 325 MG TAB PO SCH (09:07)
[2019-06-26] MEDS: CIPROFLOXACIN HCL 500 MG TAB PO SCH ×2 (09:08→21:22)
[2019-06-26] MEDS: DILTIAZEM ORAL 60 MG TAB PO SCH ×3 (09:09→21:22)
[2019-06-26] MEDS: DIGOXIN 250 MCG/ML 2 ML AMP IVP SCH (09:11)
--- NOTE | 2019-06-26 10:11 | PN ---
PROGRESS NOTE Mrs Condon is status post bypass surgery. She is in atrial fib rate, is fairly well controlled. Complains of nausea. No chest pain. Nausea could be related to the multiple boluses of amiodarone that were given. She still has some wheezing. Vital signs are stable. S1, S2 heard normally. Bilateral scattered rhonchi. Abdomen is soft. Lower extremities reveal diminished pulses. I am recommending that we decrease metoprolol to 25 mg b.i.d. in view of bronchospasm, increase Cardizem to 90 mg t.i.d. MMODL / IJN: [id number] /
[2019-06-26] MEDS: TRIMETHOBENZAMIDE 100 MG/ML 2 ML VIAL IM PRN (10:31)
[2019-06-26 11:36] LABS: Glucose,Whole Blood 125 mg/dL (75-99)
[2019-06-26] MEDS: LOSARTAN 25 MG TAB PO SCH (12:39)
[2019-06-26] MEDS: MULTIVITAMINS, THERA 1 EACH TAB PO SCH (12:39)
[2019-06-26] MEDS ORDERED: NA PHOS,M-B/NA PHOS,DI-BA 133 ML ENEMA RECTAL ONE (13:19)
--- NOTE | 2019-06-26 14:24 | PN ---
PROGRESS NOTE DATE OF SERVICE: 06/26/2019 She has been hemodynamically stable. She is more awake and alert. She is eating at this time, does not have emesis. She also her incentive spirometry is up to about a 1000. On physical examination, her blood pressure is 147/80, respiratory rate of 18, pulse of 102, temperature 98.2, O2 saturation on room air is 93%. HEENT is unremarkable. Chest reveals decreased breath sounds at the bases. Cardiovascular system reveals an S1, S2. Abdomen is soft. There is 1+ pedal edema. White count is 10.4, hemoglobin 9.8. IMPRESSION: 1. Coronary artery disease, status post coronary artery bypass. 2. Severe asthma with some chronic airway remodeling. 3. Obesity with VU. Continue current medications. Encourage incentive spirometry. Maintain nutrition. Continue bronchodilators, aerosolized steroids and Singulair. Prognosis at this time is fair. MMODL / IJN: [id number] /
--- NOTE | 2019-06-26 14:53 | US ---
EXAMINATION TYPE: US chest DATE OF EXAM: 06/26/2019 COMPARISON: NONE CLINICAL HISTORY: Ultrasound chest with markings, pleural effusion. TECHNIQUE: Targeted ultrasound of the posterior lower bilateral hemithoraces EXAM MEASUREMENTS: Right Pleural Effusion pocket size: 3.3 cm Left Pleural Effusion pocket size: 2.4 cm Right and left side NOT marked for possible thoracentesis outside the dept due to small clear pocket size and anterior lung tissue location. Pulmonologists are able to review the images in the patient?s EMR. Ultrasound performed of the posterior left and right chest IMPRESSIONS: Small bilateral pleural effusions
--- NOTE | 2019-06-26 15:01 | P.PN ---
Subjective Progress Note Date: 06/26/19 (Delayed charting seen at 7:45 AM) Principal diagnosis: Exertional dyspnea Patient is a 53-year-old -[place] female with a past medical history of diabetes mellitus type 2 insulin-dependent poorly controlled with A1c of 12.4, morbid obesity with BMI of 56.7, hypertension, dyslipidemia, asthma, and chronic pain who presented for elective quadruple bypass. Patient had initially presented here 04/18 with shortness of breath was treated for asthma exacerbation and outpatient cardiac workup was recommended once wheezing was better controlled. She ultimately underwent cardiac catheterization on 06/14 was found have triple-vessel coronary artery disease and coronary artery bypass grafting was recommended. Patient does follow with Dr. Delvalle for her asthma. Patient underwent four-vessel bypass surgery on 06/[address] Montanez resulting in a HERNDON to the diagonal and LAD, left radial artery to the OM, SVG to the PDA, along with clipping of the left atrial appendage. She had 2 episode of intraop a fib requiring cardioversion. She was extubated the same day as her procedure 06/22. She went into sustained A fib on 06/23 requiring amio bolus which has been converted to oral amiodarone. Patient seen and examined at bedside. Denies any significant shortness of breath, some incisional chest pain, nausea and vomiting much better than prior. No other complaints currently. Still with no BM, is passing some flatus. No abdominal pain. Objective - Vital Signs Vital signs: Vital Signs Temp 98.2 F 06/26/19 12:00 Pulse 94 06/26/19 12:18 Resp 18 06/26/19 12:00 BP 147/88 06/26/19 12:00 Pulse Ox 93 L 06/26/19 12:00 Intake & Output 06/25/19 06/26/19 06/26/19 18:59 06:59 18:59 Intake Total 20 720 Output Total 2015 017 1875 Balance -19959 Weight 170 kg 170 kg Intake: IV 20 Lactated Ringers 1,000 ml 20 @ 20 mls/hr IV .Q24H YESSENIA Rx#:[id number] Oral 720 Output: Urine 0758 903 3172 Post Void Residual 500 Emesis 6 Other: Voiding Method Indwelling Catheter Indwelling Catheter Indwelling Catheter # Bowel Movements 2 ABP, PAP, CO, CI - Last Documented Arterial Blood Pressure 99/62 Pulmonary Artery Pressure 32/19 Cardiac Output 6.3 Cardiac Index 2.4 - Exam General: non toxic, no distress, morbidly obese, appears older than stated age Derm: warm, dry Head: atraumatic, normocephalic, symmetric Eyes: EOMI, no lid lag, anicteric sclera Mouth: no lip lesion, mucus membranes moist Cardiovascular: S1-S2 irregular, no murmur Lungs: Decreased breath sounds bilateral, no rhonchi, no rales , no accessory muscle use Abdominal: soft, nontender to palpation, no guarding, no appreciable organomegaly Ext: no gross muscle atrophy, no edema, no contractures Neuro: CN II-XI grossly intact, no focal neuro deficits Psych: awake, alert, appropriate affect - Labs CBC & Chem 7: 06/26/19 05:24 06/26/19 05:24 Labs: Abnormal Lab Results - Last 24 Hours (Table) 06/25/19 06/25/19 06/25/19 Range/Units 14:34 17:36 17:43 Hgb (11.4-16.0) gm/dL Hct (34.0-46.0) % MCHC (31.0-37.0) g/dL BUN (7-17) mg/dL Glucose (74-99) mg/dL POC Glucose (mg/dL) 178 H 180 H (75-99) mg/dL AST (14-36) U/L Alkaline Phosphatase (38-126) U/L Albumin (3.5-5.0) g/dL Urine Appearance Cloudy H (Clear) Urine Protein 1+ H (Negative) Urine Ketones Trace H (Negative) Urine Blood Large H (Negative) Ur Leukocyte Esterase Large H (Negative) Urine RBC >182 H (0-5) /hpf Urine WBC 118 H (0-5) /hpf Urine Mucus Many H (None) /hpf 06/25/19 06/26/19 06/26/19 Range/Units 20:29 02:10 05:24 Hgb 9.8 L (11.4-16.0) gm/dL Hct 33.0 L (34.0-46.0) % MCHC 29.6 L (31.0-37.0) g/dL BUN (7-17) mg/dL Glucose (74-99) mg/dL POC Glucose (mg/dL) 173 H 179 H (75-99) mg/dL AST (14-36) U/L Alkaline Phosphatase (38-126) U/L Albumin (3.5-5.0) g/dL Urine Appearance (Clear) Urine Protein (Negative) Urine Ketones (Negative) Urine Blood (Negative) Ur Leukocyte Esterase (Negative) Urine RBC (0-5) /hpf Urine WBC (0-5) /hpf Urine Mucus (None) /hpf 06/26/19 06/26/19 06/26/19 Range/Units 05:24 07:41 11:34 Hgb (11.4-16.0) gm/dL Hct (34.0-46.0) % MCHC (31.0-37.0) g/dL BUN 25 H (7-17) mg/dL Glucose 154 H (74-99) mg/dL POC Glucose (mg/dL) 150 H 125 H (75-99) mg/dL AST 45 H (14-36) U/L Alkaline Phosphatase 148 H (38-126) U/L Albumin 3.4 L (3.5-5.0) g/dL Urine Appearance (Clear) Urine Protein (Negative) Urine Ketones (Negative) Urine Blood (Negative) Ur Leukocyte Esterase (Negative) Urine RBC (0-5) /hpf Urine WBC (0-5) /hpf Urine Mucus (None) /hpf Microbiology - Last 24 Hours (Table) 06/25/19 17:43 Urine Culture - Preliminary Urine,Voided Assessment and Plan Assessment: Patient is a 53 yo AAF care with elective 4 vessel bypass surgery. Diabetes mellitus type 2 insulin requiring, uncontrolled - insulin is being managed by cardiothorasic surgery. - Patient currently on levemir 75 units, Novolog 20 with meals (hold for nausea) and SSI -Follow blood sugars closely -Hemoglobin A1c 12.4 -Diabetic educators recs. -Ideally would benefit form outpatient endocrinology evaluation if able to coordinate Intractable vomiting, improving - tigan, add miralax as no BM yet - consider KUB if not improved and possible enema if still no BM Asymptomatic bacturia - Red blood cells and white blood cells likely due to recent trauma for reinsertion of Argueta, and prior folate -Patient currently not complaining of any urinary symptoms I would not treat. Acute blood loss anemia, an anticipated outcome of surgery - follow CBC - Fe studies pending mild intermittent asthma - duoneb - at home on dulera, singulair, and ventolin as needed. Morbid obesity with BMI 56.7 - structured outpatient weight loss VU - home CPAP HTN - management per cardiovascular surgery. Atherosclerotic coronary artery disease status post 4 vessel bypass surgery -Management per cardiovascular surgery A. fib with RVR - lopressor, cardizem, digoxin -Management per cardiovascular surgery Thank you for allowing us to participate in the care of this patient. Dr. Kimble is not currently seeing patients, on discharge can follow-up with Juany Moraes NP and after 07/16 Dr. Stanford will be covering Dr. Kimble's practice.
[2019-06-26 16:41] LABS: Glucose,Whole Blood 162 mg/dL (75-99)
[2019-06-26 21:08] LABS: Glucose,Whole Blood 153 mg/dL (75-99)
[2019-06-26] MEDS: MONTELUKAST 10 MG TAB PO SCH (21:22)
[2019-06-26] MEDS: SENNOSIDES-DOCUSATE SODIUM 1 EACH TAB PO SCH (21:22)
[2019-06-26] MEDS: LATANOPROST 0.005% OPHTH DROPS 2.5 ML BTL BOTH EYES SCH (21:23)
[2019-06-26] MEDS: INSULIN DETEMIR (LEVEMIR) 100 UNIT/ML SYR SQ SCH (21:24)
[2019-06-27] MEDS: ONDANSETRON 4 MG/2 ML VIAL IVP PRN ×3 (00:21→23:27)
[2019-06-27 01:31] LABS: Glucose,Whole Blood 206 mg/dL (75-99)
[2019-06-27 05:44] LABS: ALT 57 U/L (9-52); AST 42 U/L (14-36); African American GFR (CKD) >90 (>60 ml/min/1.73 sqM); Albumin 3.3 g/dL (3.5-5.0); Alkaline Phosphatase 136 U/L (38-126); Anion Gap 7 mmol/L; Blood Urea Nitrogen 20 mg/dL (7-17); Calcium 8.6 mg/dL (8.4-10.2); Carbon Dioxide 29 mmol/L (22-30); Chloride 99 mmol/L (98-107); Digoxin 1.1 ng/mL; Glucose 188 mg/dL (74-99); Potassium 4.7 mmol/L (3.5-5.1); Sodium 135 mmol/L (137-145); Total Bilirubin 0.9 mg/dL (0.2-1.3); Total Protein 6.6 g/dL (6.3-8.2)
[2019-06-27] MEDS: METOCLOPRAMIDE 5 MG/ML 2 ML VIAL IVP SCH ×3 (06:02→17:35)
[2019-06-27 06:36] LABS: Glucose,Whole Blood 182 mg/dL (75-99)
[2019-06-27] MEDS: PANTOPRAZOLE 40 MG TABLET PO SCH (06:38)
[2019-06-27] MEDS: INSULIN ASPART (NovoLOG) 100 UNIT/ML VIAL SQ SCH ×7 (06:38→21:16)
[2019-06-27 06:44] LABS: Basophils # (A) 0.1 k/uL (0-0.2); Basophils % (A) 1 %; Eosinophils # (A) 0.3 k/uL (0-0.7); Eosinophils % (A) 3 %; HCT 30.3 % (34.0-46.0); HGB 9.7 gm/dL (11.4-16.0); Lymphocytes # (A) 1.6 k/uL (1.0-4.8); Lymphocytes % (A) 17 %; MCH 25.8 pg (25.0-35.0); MCHC 32.2 g/dL (31.0-37.0); MCV 80.1 fL (80.0-100.0); Monocytes # (A) 0.8 k/uL (0-1.0); Monocytes % (A) 8 %; Neutrophils # (A) 6.2 k/uL (1.3-7.7); Neutrophils % (A) 68 %; Platelet Count 416 k/uL (150-450); RBC 3.78 m/uL (3.80-5.40); RDW 13.3 % (11.5-15.5); WBC 9.2 k/uL (3.8-10.6)
[2019-06-27] MEDS: TRIMETHOBENZAMIDE 100 MG/ML 2 ML VIAL IM PRN (07:26)
[2019-06-27] MEDS ORDERED: FUROSEMIDE 10 MG/ML 4 ML VIAL IV SCH (08:00)
--- NOTE | 2019-06-27 08:16 | XR ---
EXAMINATION TYPE: XR chest 2V DATE OF EXAM: 06/27/2019 COMPARISON: 06/26/2019 HISTORY: Post CABG FINDINGS: There are bilateral pleural effusions with cardiomegaly and bibasilar infiltrate. There is a diffuse interstitial pattern. Postsurgical changes are noted. No sizable pneumothorax. Could not exclude a t iny granuloma right upper lobe. Hypertrophic and mild degenerative change of the vertebral column. IMPRESSION: 1. Bilateral pleural-parenchymal changes are stable compatible with consolidation and pleural effusio n. Underlying venous congestion not excluded.
--- NOTE | 2019-06-27 08:48 | P.PN ---
Subjective Progress Note Date: 06/27/19 Principal diagnosis: Coronary arteriosclerosis, history of hypertension, hyperlipidemia, uncontrolled insulin dependent diabetes with hyperglycemia and her preoperative hemoglobin A1c of 12.4, asthma, obstructive sleep apnea with home CPAP use, morbid obesity with a BMI of 56, remote history of pneumonia and family history of diabetes and hypertension. POD #5 off-pump coronary artery bypass grafting surgery 4 vessels with sequential HERNDON to the diagonal coronary artery and left anterior descending coronary artery, a left radial artery to the obtuse marginal coronary artery, a reverse saphenous vein graft to the PDA with an endovascular harvesting of the left radial artery and greater saphenous vein. Clipping of the left atrial appendage using a 35 mm Atriclip. Postoperative acute blood loss anemia, an expected outcome of surgery due to hemodilution. Postoperative paroxysmal atrial fibrillation, an unexpected but potential outcome of surgery. Postoperative intractable vomiting, an unexpected outcome. Postoperative urinary retention, requiring reinitiation of Argueta catheter, an unexpected outcome. The patient is sitting up to the bedside chair in the intensive care unit. She is in no acute distress. The patient remains alert and oriented 3. She denies any complaints of pain or shortness of breath this time although continues to complain of nausea with episodes of emesis. She remains on Reglan, Zofran and Tigan. A bedside telemetry this morning is showing sinus tachycardia heart rate 103. She converted from atrial fibrillation to sinus tachycardia this morning at 7:40 AM. Her amiodarone was discontinued yesterday as a suspected culprit fo r her nausea. She ambulated in the intensive care unit hallway yesterday 3 with minimal assistance and tolerated well. A Fleet enema was given yesterday with good results with a BM 2. Oxygen saturations are 96% on 2 L nasal cannula, and she is achieving 1000 mL on her incentive spirometry with encouragement. Surgical support bra remains in place, continues to have her heart hugger in place and is demonstrating appropriate use. The Argueta catheter remains in place for some postoperative urinary retention, continues to drain in the urine with 2775 mL output in the last 24 hours. She is receiving Lasix 40 mg IV every 12 hours. Chest x-ray completed this morning shows bilateral pleural effusions. An ultrasound of her chest was completed yesterday which demonstrated her to have bilateral pleural effusions with 5 cm fluid pockets. Laboratory results this morning show a WBC count 9.2, hemoglobin 9.7, hematocrit 30.3, platelets 416, sodium 135, BUN 20, creatinine 0.58, AST 42 and ALT 57. Digoxin level was also sent which showed a ditch level of 1.1. The patient's eldest daughter is at her bedside and has been updated on her care. Objective - Vital Signs Vital signs: Vital Signs Temp 98.2 F 06/27/19 04:00 Pulse 101 H 06/27/19 04:00 Resp 18 06/27/19 04:00 BP 134/88 06/27/19 04:00 Pulse Ox 96 06/27/19 04:00 Intake & Output 06/26/19 06/27/19 06/27/19 18:59 06:59 18:59 Intake Total 960 Output Total 2175 600 Balance -1215 -600 Weight 171 kg Intake: Oral 960 Output: Urine 2175 600 Other: Voiding Method Indwelling Catheter Indwelling Catheter # Bowel Movements 2 ABP, PAP, CO, CI - Last Documented Arterial Blood Pressure 99/62 Pulmonary Artery Pressure 32/19 Cardiac Output 6.3 Cardiac Index 2.4 - Constitutional General appearance: Present: cooperative, morbidly obese, no acute distress - Respiratory Details: Lung sounds essentially clear to her bilateral upper lobes, diminished bilateral bases. No wheezes, rhonchi or crackles appreciated. Respirations are symmetrical and nonlabored. Oxygen saturation are 96% on 2 L nasal cannula. Achieving 1000 mL on her incentive spirometry with encouragement. - Cardiovascular Details: Regular rhythm and rate. S1 and S2 present, negative for S3, gallop or murmur. Sternum is stable. Bedside telemetry showing sinus tachycardia 103 heart rate. +1 generalized edema. Knee-high ZAINAB hose and sequential compression devices in place to bilateral lower extremities. Surgical support and heart hugger is in place and she is demonstrating appropriate use of her heart hugger. - Gastrointestinal Gastrointestinal Comment(s): Abdomen is soft, nontender and nondistended. Active bowel sounds present all 4 abdominal quadrants. No guarding or rigidity. No organomegaly appreciated. M orbidly obese. - Genitourinary Genitourinary Comment(s): Argueta catheter in place for accurate I&O and urinary retention. Draining clear sofya urine. - Integumentary Integumentary Comment(s): Skin is warm and dry. No clubbing or cyanosis is present. No rash or abnormal pigmentation is present. Midline sternal incision is clean, dry and approximated. No drainage or redness is present. Right lower extremity EVH sites are clean, dry and approximated. No drainage or redness is present. Left arm radial artery harvest sites, clean dry and intact. No drainage or redness present. - Neurologic Neurologic Comment(s): No focal deficits. Neurologic: Present: CNII-XII intact - Musculoskeletal Musculoskeletal: Present: gait normal, generalized weakness, strength equal bilaterally - Psychiatric Psychiatric: Present: A&O x's 3, appropriate affect, intact judgment & insight - Allied health notes Allied health notes reviewed: nursing - Labs CBC & Chem 7: 06/27/19 06:28 06/27/19 05:07 Labs: Abnormal Lab Results - Last 24 Hours (Table) 06/26/19 06/26/19 06/26/19 Range/Units 11:34 16:40 21:07 RBC (3.80-5.40) m/uL Hgb (11.4-16.0) gm/dL Hct (34.0-46.0) % Sodium (137-145) mmol/L BUN (7-17) mg/dL Glucose (74-99) mg/dL POC Glucose (mg/dL) 125 H 162 H 153 H (75-99) mg/dL AST (14-36) U/L ALT (9-52) U/L Alkaline Phosphatase (38-126) U/L Albumin (3.5-5.0) g/dL 06/27/19 06/27/19 06/27/19 Range/Units 01:29 05:07 06:28 RBC 3.78 L (3.80-5.40) m/uL Hgb 9.7 L (11.4-16.0) gm/dL Hct 30.3 L (34.0-46.0) % Sodium 135 L (137-145) mmol/L BUN 20 H (7-17) mg/dL Glucose 188 H (74-99) mg/dL POC Glucose (mg/dL) 206 H (75-99) mg/dL AST 42 H (14-36) U/L ALT 57 H (9-52) U/L Alkaline Phosphatase 136 H (38-126) U/L Albumin 3.3 L (3.5-5.0) g/dL 06/27/19 Range/Units 06:35 RBC (3.80-5.40) m/uL Hgb (11.4-16.0) gm/dL Hct (34.0-46.0) % Sodium (137-145) mmol/L BUN (7-17) mg/dL Glucose (74-99) mg/dL POC Glucose (mg/dL) 182 H (75-99) mg/dL AST (14-36) U/L ALT (9-52) U/L Alkaline Phosphatase (38-126) U/L Albumin (3.5-5.0) g/dL Microbiology - Last 24 Hours (Table) 06/25/19 17:43 Urine Culture - Final Urine,Voided - Imaging and Cardiology Chest x-ray: report reviewed, image reviewed Assessment and Plan Assessment: 1. Coronary arterial sclerosis, status post four-vessel coronary artery bypass grafting surgery 2. Uncontrolled insulin-dependent diabetes mellitus with a preoperative hemoglobin A1c of 12.4 3. History of hypertension 4. Hyperlipidemia 5. Asthma 6. Obstructive sleep apnea with home CPAP use 7. Morbid obesity with an admission BMI of 56 8. Remote history of pneumonia 9. Family history of diabetes and hypertension 10. Postoperative acute blood loss anemia, an expected outcome 11. Postoperative paroxysmal atrial fibrillation, an unexpected but potential outcome of surgery 12. Postoperative urinary retention, requiring reinitiation of Argueta catheter, an unexpected outcome Plan: 1. Continue to maximize medical therapy with aspirin, Cozaar, Plavix, statin, and beta gregorio. We will increase her metoprolol tartrate 75 mg by mouth twice a day. 2. Medical management, Insulin management and other comorbidities management per primary care service. 3. Encourage increase in activity. Physical therapy, occupational therapy and cardiac rehabilitation following. 4. Encourage use of her incentive spirometry every hour while awake. 5. Continue Lasix 40 mg IV to 12 hours. 6. Bronchodilators, CPAP management per pulmonary medicine. Wean oxygen as tolerated. 7. Continue GI and DVT prophylaxis. 8. Continue Cardizem to 60 mg by mouth 3 times a day for radial artery spasm prophylaxis. Do not discontinue unless okayed by cardiothoracic surgery. 9. The patient is in sinus rhythm this morning, we will hold off on starting anticoagulation at this time. 10. Ciprofloxacin discontinued this morning as her urine culture came back negative for any growth or redness. 11. Continue Reglan 10 mg IV to 6 hours for her complaints of nausea and vomiting. Continue Zofran and Tigan. 12. Continue to monitor daily labs and chest x-rays. 13. Continue surgical support bra, continue to encourage use of her heart hugger. 14. Pain management per current when necessary orders. 15. Continue digoxin 0.25 mg IVP daily. Digoxin level this morning is 1.1. 16. Transferred to the cardiac stepdown unit when a bed available. 17. More recommendations to follow based on patient's clinical course. Time with Patient: Greater than 30
[2019-06-27] MEDS: DIGOXIN 250 MCG/ML 2 ML AMP IVP SCH (08:55)
[2019-06-27] MEDS: HEPARIN SODIUM,PORCINE 5,000 UNIT/ML 1 ML VIAL SQ SCH ×2 (08:55→17:35)
[2019-06-27] MEDS: FUROSEMIDE 10 MG/ML 4 ML VIAL IV SCH ×2 (08:56→21:22)
[2019-06-27] MEDS: CLOPIDOGREL 75 MG TAB PO SCH (08:57)
[2019-06-27] MEDS: ATORVASTATIN 40 MG TAB PO SCH (08:57)
[2019-06-27] MEDS: DILTIAZEM ORAL 60 MG TAB PO SCH ×3 (08:58→21:23)
[2019-06-27] MEDS: METOPROLOL TARTRATE 25 MG TAB PO SCH ×2 (08:58→21:23)
[2019-06-27] MEDS: ASPIRIN 325 MG TAB PO SCH (09:02)
[2019-06-27] MEDS: ACETAMINOPHEN TAB 500 MG TAB PO PRN (09:02)
[2019-06-27] MEDS: IPRATROPIUM-ALBUTEROL 3 ML NEB INHALATION SCH ×4 (09:17→20:28)
[2019-06-27] MEDS: BUDESONIDE 0.5 MG/2 ML NEBU INHALATION SCH ×3 (09:17→20:28)
--- NOTE | 2019-06-27 09:18 | PN ---
PROGRESS NOTE DATE OF SERVICE: 06/27/2019 This is a 53-year-old black female who is postop day #5 status post off pump 4-vessel bypass grafting. Other than for nausea, she is doing relatively well. She has had been given Reglan and Zofran and Tigan for the nausea with only minimal improvement. She does have a history of mild intermittent asthma. It is relatively stable. Her other medical problems include morbid obesity, type 2 diabetes, allergic rhinitis, sleep apnea syndrome, benign essential hypertension, hyperlipidemia, and postoperative atelectasis. She does also have atrial fibrillation with RVR postoperatively treated with Cordarone. Currently, she has no major complaints other than the nausea. She is on 2 L nasal cannula. She is not receiving any IV fluids. Current vital signs include a temperature which is 98.2, heart rate 100 irregular, respiratory rate 18, blood pressure 134/88 mean 103 and saturations on 2 L of 96% and 98%. Appears in no acute distress. HEENT: Examination is grossly unremarkable. Mucous membranes are moist. NECK: Supple. No known thyromegaly or adenopathy. Neck veins are flat. CARDIOVASCULAR examination reveals irregular rhythm rate. Heart rate 100. S1, S2 normal. Heart sounds are distant. LUNGS: Reveal a few scattered rhonchi and crackles. Breath sounds are equal. ABDOMEN: Obese. Bowel sounds are heard. EXTREMITIES: Intact. Minimal edema. SKIN: Without rash. NEUROLOGIC: Examination is brief but nonfocal. LABS: Reviewed. White count 9.2, hemoglobin 9.7, hematocrit 30.3, platelet count 418, 000, sodium 135, potassium 4.7, chloride 99, CO2 is 29 anion gap is 7, BUN and creatinine were 20 and 0.58. Albumin 3.3. Labs are reviewed with one of the cardiothoracic assistants. Microbiology is negative. Medications are reviewed. ASSESSMENT: 1. Postoperative day #5, status post off pump 4-vessel bypass grafting. 2. Routine postoperative ventilator management, resolved. 3. Mild intermittent asthma, not particularly active. 4. Morbid obesity. 5. Type 2 diabetes mellitus. 6. Seasonal allergies. 7. History of obstructive sleep apnea syndrome, with home CPAP use. 8. Benign essential hypertension. 9. Hyperlipidemia. 10.Postoperative atelectasis. 11.Small bilateral pleural effusions. 12.Atrial fibrillation with RVR. 13.Acute urinary tract infection, treated. 14.Bilateral pleural effusions. 15.Postoperative nausea. PLAN: Will continue to treat the patient in a standard fashion. Patient seems to be progressing nicely. Her major complaint is the nausea. They have tried Tigan, Zofran and Reglan. I thought Compazine might help. Additional recommendations and suggestions are forthcoming. Prognosis is guarded. MMODL / IJN: [id number] /
[2019-06-27 10:15] LABS: Amylase 46 U/L (30-110)
--- NOTE | 2019-06-27 11:10 | PN ---
PROGRESS NOTE This lady is status post bypass surgery, complains of persistent nausea, probably secondary to amiodarone. She is receiving some Tigan for this. Remains in AFIB, rate control is good. Hemodynamically stable. Urine output is decent. Vital signs are stable. S1, S2 heard normally but distantly. Lungs reveal fair air entry. Abdomen and lower extremity exam is unchanged. Plan is to continue incentive spirometry, pulmonary toilet. Anticoagulation will be up to the surgeon. MMODL / IJN: [id number] /
[2019-06-27 11:50] LABS: Glucose,Whole Blood 125 mg/dL (75-99)
--- NOTE | 2019-06-27 12:46 | US ---
EXAMINATION TYPE: US gallbladder DATE OF EXAM: 06/27/2019 COMPARISON: NONE CLINICAL HISTORY: nausea, cholelithiasis . Patient is 6 days post CABG and c/o nausea. EXAM MEASUREMENTS: Liver Length: 22.0 cm Gallbladder Wall: 0.2 cm CBD: 0.3 cm Right Kidney: 11.2 x 7.3 x 4.7 cm Pancreas: Limited by bowel gas Liver: enlarged as is greater than 18.0cm Gallbladder: wnl Evidence for sonographic Alves's sign: no CBD: wnl Right Kidney: wnl IMPRESSION: 1. Hepatomegaly. Correlate with liver function studies. 2. No evidence of gallstones.
[2019-06-27] MEDS: PROMETHAZINE INJ 12.5 MG in SODIUM CHLORIDE 0.9% 50 ML IVPB PRN ×2 (13:31→21:16)
[2019-06-27] MEDS: NYSTATIN 100,000 UNIT/ML SUSP 500,000 UNIT/5 ML CUP PO SCH ×3 (13:32→23:27)
[2019-06-27] MEDS: FLUTICASONE 50MCG/SPRAY NASAL 16GM EA NOSTRIL SCH (13:32)
[2019-06-27] MEDS: LORATADINE 10 MG TAB PO SCH (13:35)
[2019-06-27] MEDS: MULTIVITAMINS, THERA 1 EACH TAB PO SCH (13:35)
--- NOTE | 2019-06-27 15:24 | P.PN ---
Subjective Progress Note Date: 06/27/19 Principal diagnosis: Exertional dyspnea Patient is a 53-year-old -[place] female with a past medical history of diabetes mellitus type 2 insulin-dependent poorly controlled with A1c of 12.4, morbid obesity with BMI of 56.7, hypertension, dyslipidemia, asthma, and chronic pain who presented for elective quadruple bypass. Patient had initially presented here 04/18 with shortness of breath was treated for asthma exacerbation and outpatient cardiac workup was recommended once wheezing was better controlled. She ultimately underwent cardiac catheterization on 06/14 was found have triple-vessel coronary artery disease and coronary artery bypass grafting was recommended. Patient does follow with Dr. Delvalle for her asthma. Patient underwent four-vessel bypass surgery on 06/[address] Montanez resulting in a HERNDON to the diagonal and LAD, left radial artery to the OM, SVG to the PDA, along with clipping of the left atrial appendage. She had 2 episode of intraop a fib requiring cardioversion. She was extubated the same day as her procedure 06/22. She went into sustained A fib on 06/23 requiring amio bolus which has been converted to oral amiodarone. She has been struggling with persistent nausea and vomiting after surgery. She did have a bowel movement yesterday after a fleets enema. Patient seen and examined at bedside. Some incision chest pain, still with per sistent nausea and vomiting. denies abdominal pain. No shortness of breath. + BM yesterday. Feels like she is having some difficulty swallowing. Objective - Vital Signs Vital signs: Vital Signs Temp 98.2 F 06/27/19 04:00 Pulse 87 06/27/19 11:09 Resp 18 06/27/19 04:00 BP 134/88 06/27/19 04:00 Pulse Ox 96 06/27/19 04:00 Intake & Output 06/26/19 06/27/19 06/27/19 18:59 06:59 18:59 Intake Total 960 Output Total 2175 600 Balance -1215 -600 Weight 171 kg 171 kg Intake: Oral 960 Output: Urine 2175 600 Other: Voiding Method Indwelling Catheter Indwelling Catheter # Bowel Movements 2 ABP, PAP, CO, CI - Last Documented Arterial Blood Pressure 99/62 Pulmonary Artery Pressure 32/19 Cardiac Output 6.3 Cardiac Index 2.4 - Exam General: non toxic, no distress, morbidly obese, appears older than stated age Derm: warm, dry Head: atraumatic, normocephalic, symmetric Eyes: EOMI, no lid lag, anicteric sclera Mouth: no lip lesion, mucus membranes dry, minimal thrush, + PND Cardiovascular: S1-S2 irregular, no murmur Lungs: Decreased breath sounds bilateral, no rhonchi, no rales , no accessory muscle use Abdominal: soft, nontender to palpation, no guarding, no appreciable organomegaly Ext: no gross muscle atrophy, no edema, no contractures Neuro: CN II-XI grossly intact, no focal neuro deficits Psych: awake, alert, appropriate affect - Labs CBC & Chem 7: 06/27/19 06:28 06/27/19 05:07 Labs: Abnormal Lab Results - Last 24 Hours (Table) 06/26/19 06/26/19 06/27/19 Range/Units 16:40 21:07 01:29 RBC (3.80-5.40) m/uL Hgb (11.4-16.0) gm/dL Hct (34.0-46.0) % Sodium (137-145) mmol/L BUN (7-17) mg/dL Glucose (74-99) mg/dL POC Glucose (mg/dL) 162 H 153 H 206 H (75-99) mg/dL AST (14-36) U/L ALT (9-52) U/L Alkaline Phosphatase (38-126) U/L Albumin (3.5-5.0) g/dL 06/27/19 06/27/19 06/27/19 Range/Units 05:07 06:28 06:35 RBC 3.78 L (3.80-5.40) m/uL Hgb 9.7 L (11.4-16.0) gm/dL Hct 30.3 L (34.0-46.0) % Sodium 135 L (137-145) mmol/L BUN 20 H (7-17) mg/dL Glucose 188 H (74-99) mg/dL POC Glucose (mg/dL) 182 H (75-99) mg/dL AST 42 H (14-36) U/L ALT 57 H (9-52) U/L Alkaline Phosphatase 136 H (38-126) U/L Albumin 3.3 L (3.5-5.0) g/dL 06/27/19 Range/Units 11:49 RBC (3.80-5.40) m/uL Hgb (11.4-16.0) gm/dL Hct (34.0-46.0) % Sodium (137-145) mmol/L BUN (7-17) mg/dL Glucose (74-99) mg/dL POC Glucose (mg/dL) 125 H (75-99) mg/dL AST (14-36) U/L ALT (9-52) U/L Alkaline Phosphatase (38-126) U/L Albumin (3.5-5.0) g/dL Microbiology - Last 24 Hours (Table) 06/25/19 17:43 Urine Culture - Final Urine,Voided Assessment and Plan Assessment: Patient is a 53 yo AAF care with elective 4 vessel bypass surgery. Diabetes mellitus type 2 insulin requiring, uncontrolled - Patient currently on levemir 75 units, Decrease Novolog to 5 units with meals (hold for nausea) and SSI -Follow blood sugars closely -Hemoglobin A1c 12.4 -Diabetic educators recs. -Ideally would benefit form outpatient endocrinology evaluation if able to coordinat Dr franco Intractable vomiting, improving - tigan transitioned to phenergan - add flonase and claritin for PND - Gallbladder US negative Hematuria, due to arteaga trauma - maintain arteaga X 24 hours more. Acute blood loss anemia, an anticipated outcome of surgery - follow CBC - Fe studies normal mild intermittent asthma - duoneb - at home on dulera, singulair, and ventolin as needed. Morbid obesity with BMI 56.7 - structured outpatient weight loss VU - home CPAP HTN, HLD - management per cardiovascular surgery. Atherosclerotic coronary artery disease status post 4 vessel bypass surgery -Management per cardiovascular surgery A. fib with RVR, paroxysmal - currently in sinus - lopressor, cardizem, digoxin -Management per cardiovascular surgery Asymptomatic bacturia - off cipro Thank you for allowing us to participate in the care of this patient. Dr. Kimble is not currently seeing patients, on discharge can follow-up with Juany Moraes NP and after 07/16 Dr. Stanford will be covering Dr. Kimble's practice.
[2019-06-27 16:41] LABS: Glucose,Whole Blood 71 mg/dL (75-99)
[2019-06-27] MEDS: LOSARTAN 25 MG TAB PO SCH (17:35)
[2019-06-27 20:42] LABS: Glucose,Whole Blood 106 mg/dL (75-99)
[2019-06-27] MEDS: INSULIN DETEMIR (LEVEMIR) 100 UNIT/ML SYR SQ SCH (21:22)
[2019-06-27] MEDS: MONTELUKAST 10 MG TAB PO SCH (21:22)
[2019-06-27] MEDS: SENNOSIDES-DOCUSATE SODIUM 1 EACH TAB PO SCH (21:23)
--- NOTE | 2019-06-27 21:33 | PN ---
PROGRESS NOTE DATE OF SERVICE: June 27, 2019. She is sleepy but arousable. Follows commands. She continues to have nausea and has poor oral intake. Her IS is 750 to a L. She seems more short of breath and is coughing up whitish phlegm. On physical examination, blood pressure is 134/88, respiratory rate of 18, pulse rate of 101, temperature 98.2. HEENT reveals pupils are equal. Chest reveals faint wheeze. Cardiovascular system is S1, S2. Abdomen is soft. There is 1+ pedal edema. Labs reveal a white count of 9.2, hemoglobin of 9.7. Eosinophil count of 0.3 1000. Sodium 135, potassium 4.7, chloride 99, bicarb 29, BUN 20, creatinine 0.58. IMPRESSION: At this time is: 1. Coronary artery disease, status post coronary artery bypass. 2. Severe asthma for which he seems to be becoming slightly more bronchospastic at this time. 3. Nausea. At this point in time, continue DuoNeb, Pulmicort and montelukast. If she starts to get any worse, she may require a short burst of Solu-Medrol. We will watch her closely during the hospital stay and appreciate the opportunity to participate in his care. MMODL / IJN: [id number] /
[2019-06-27] MEDS: LATANOPROST 0.005% OPHTH DROPS 2.5 ML BTL BOTH EYES SCH (23:26)
[2019-06-28] MEDS: METOCLOPRAMIDE 5 MG/ML 2 ML VIAL IVP SCH ×4 (01:47→17:20)
[2019-06-28] MEDS: HEPARIN SODIUM,PORCINE 5,000 UNIT/ML 1 ML VIAL SQ SCH ×3 (01:47→15:32)
[2019-06-28 01:57] LABS: Glucose,Whole Blood 89 mg/dL (75-99)
[2019-06-28 05:37] LABS: HCT 30.5 % (34.0-46.0); HGB 9.5 gm/dL (11.4-16.0); Hypochromasia Moderate; MCH 26.2 pg (25.0-35.0); MCHC 31.2 g/dL (31.0-37.0); MCV 83.7 fL (80.0-100.0); Mean Platelet Volume 5.9; Platelet Count 479 k/uL (150-450); RBC 3.65 m/uL (3.80-5.40); RDW 13.6 % (11.5-15.5); WBC 9.4 k/uL (3.8-10.6)
[2019-06-28 05:54] LABS: African American GFR (CKD) >90 (>60 ml/min/1.73 sqM); Anion Gap 7 mmol/L; Blood Urea Nitrogen 15 mg/dL (7-17); Calcium 8.7 mg/dL (8.4-10.2); Carbon Dioxide 34 mmol/L (22-30); Chloride 97 mmol/L (98-107); Glucose 80 mg/dL (74-99); Magnesium 2.1 mg/dL (1.6-2.3); Potassium 4.2 mmol/L (3.5-5.1); Sodium 138 mmol/L (137-145)
[2019-06-28 06:43] LABS: Glucose,Whole Blood 73 mg/dL (75-99)
[2019-06-28] MEDS: INSULIN ASPART (NovoLOG) 100 UNIT/ML VIAL SQ SCH ×7 (07:29→20:35)
[2019-06-28] MEDS: PANTOPRAZOLE 40 MG TABLET PO SCH (07:34)
[2019-06-28] MEDS: FLUTICASONE 50MCG/SPRAY NASAL 16GM EA NOSTRIL SCH (07:58)
[2019-06-28] MEDS: DILTIAZEM ORAL 60 MG TAB PO SCH ×3 (07:58→20:44)
[2019-06-28] MEDS: LORATADINE 10 MG TAB PO SCH (07:59)
[2019-06-28] MEDS: CLOPIDOGREL 75 MG TAB PO SCH (07:59)
[2019-06-28] MEDS: NYSTATIN 100,000 UNIT/ML SUSP 500,000 UNIT/5 ML CUP PO SCH ×4 (07:59→20:43)
[2019-06-28] MEDS: ASPIRIN 325 MG TAB PO SCH (07:59)
[2019-06-28] MEDS: ATORVASTATIN 40 MG TAB PO SCH (07:59)
[2019-06-28] MEDS: METOPROLOL TARTRATE 25 MG TAB PO SCH ×2 (07:59→20:38)
[2019-06-28] MEDS: DIGOXIN 250 MCG/ML 2 ML AMP IVP SCH (08:00)
[2019-06-28] MEDS: FUROSEMIDE 10 MG/ML 4 ML VIAL IV SCH ×2 (08:00→20:35)
[2019-06-28] MEDS ORDERED: PROMETHAZINE INJ 12.5 MG in SODIUM CHLORIDE 0.9% 50 ML IVPB PRN (08:03)
[2019-06-28] MEDS: BUDESONIDE 0.5 MG/2 ML NEBU INHALATION SCH ×2 (08:11→20:40)
[2019-06-28] MEDS: IPRATROPIUM-ALBUTEROL 3 ML NEB INHALATION SCH ×4 (08:11→20:40)
--- NOTE | 2019-06-28 08:29 | PN ---
PROGRESS NOTE This lady is status post aortocoronary bypass surgery. She has also bronchial asthma, and is obese. However, she is back in sinus rhythm, doing better, hemodynamically stable. Vital signs are stable. S1, S2 heard normally. Heart sounds heard distantly. Lungs reveal improved air entry. Abdomen and lower extremity exam unchanged. Patient's overall condition has improved. Her nausea is better. We will continue incentive spirometry and pulmonary toilet. MMODL / IJN: [id number] /
--- NOTE | 2019-06-28 08:41 | PN ---
PROGRESS NOTE PULMONARY/CRITICAL CARE PROGRESS NOTE: DATE OF SERVICE: June 28, 2019 This is a 53-year-old black female who is postop day #6 status post off pump 4-vessel bypass grafting. She is doing a bit better today. Yesterday, she was complaining of lots of nausea. She is being given Zofran, Reglan, and Tigan for the nausea with only minimal benefit. This morning, she is not receiving any IV fluids. She is on BiPAP at 12 and 4 and 28%. Her chest x-ray shows bilateral effusions. The patient is being diuresed. She has a history of morbid obesity, type 2 diabetes, allergic rhinitis, sleep apnea syndrome, benign essential hypertension, hyperlipidemia, and postoperative atelectasis. She also developed postoperative atrial fibrillation with RVR requiring Cordarone therapy. Currently, she is not complaining of any chest pain, shortness of breath or difficulty breathing. She is not coughing or wheezing. No fever or chills. No nausea, vomiting or diarrhea. PHYSICAL EXAMINATION: VITAL SIGNS: Vital signs are reviewed. Temperature 98, heart rate 92, respiratory rate 20, blood pressure 139/89, mean 105 and 2 L saturation 99%. GENERAL: She appears in no acute distress. HEENT: Examination is grossly unremarkable. Mucous membranes are moist. No oral lesions. NECK: Supple. Full range of motion. No adenopathy or thyromegaly. Neck veins are flat. CARDIOVASCULAR: Examination reveals regular rhythm and rate. S1, S2 normal. LUNGS: Reveal clear breath sounds at the tops or apices of the lungs. At the bottom of the lungs or the bases, there are a few scattered rhonchi and crackles. Breath sounds are equal bilaterally. No wheezes are noted. ABDOMEN: Is soft, but obese. EXTREMITIES: Are intact. No to minimal edema. SKIN: Without rash. NEUROLOGIC: Examination is brief but nonfocal. Microbiologic studies are negative. White count is 9.4, hemoglobin 9.5, hematocrit 30.5, platelet count 479,000. Sodium 138, potassium 4.2, chloride 97, CO2 is 34. Anion gap 7. Renal function is normal. Magnesium 2.1. Chest x-rays reviewed. MEDICATIONS: Medications are reviewed. ASSESSMENT: 1. Postoperative day #6 status post off pump 4-vessel bypass grafting. 2. Routine postoperative ventilator management, resolved. 3. Mild intermittent asthma, not particularly active at this time. 4. Morbid obesity. 5. Type 2 diabetes mellitus. 6. Seasonal allergies. 7. History of sleep apnea syndrome, maintained on home CPAP. 8. Benign essential hypertension. 9. Hyperlipidemia. 10.Postoperative atelectasis and postoperative small bilateral pleural effusion. 11.Atrial fibrillation with rapid ventricular response. 12.Urinary tract infection, treated. 13.Postoperative nausea. PLAN: Currently, the patient seems to be doing a bit better. This morning, she was on her BiPAP. Her oxygenation is excellent. Chest x-ray is still showing bilateral effusions. Respiratory status is stable. Recommend ongoing diuresis. No additional recommendations are made. We will continue to follow. Prognosis is guarded. MMODL / IJN: [id number] /
--- NOTE | 2019-06-28 09:08 | XR ---
EXAMINATION TYPE: XR chest 1V portable DATE OF EXAM: 06/28/2019 COMPARISON: 06/27/2019 HISTORY: Post cardiac surgery TECHNIQUE: Single frontal view of the chest is obtained. FINDINGS: Cardiomegaly and postsurgical changes identified. No sizable pneumothorax. Bilateral conso lidation and pleural effusion seen. Central interstitial pattern. IMPRESSION: 1. Bilateral infiltrate and pleural effusion correlate for mild CHF. Findings greater on the left evangelista ear similar to the prior exam. Underlying pneumonia not excluded.
--- NOTE | 2019-06-28 09:42 | P.PN ---
Subjective Progress Note Date: 06/28/19 Principal diagnosis: Coronary artery disease. Previous medical history of hypertension, hyperlipidemia, uncontrolled insulin-dependent diabetes with hyperglycemia and hemoglobin A1c 12.4%, asthma, obstructive sleep apnea with home CPAP use, morbid obesity with BMI of 56, remote history of pneumonia, family history of diabetes and hypertension. POD #6 off-pump coronary artery bypass graft 4 with sequential left internal mammary artery to the diagonal and left anterior descending artery, left radial artery to the obtuse marginal, reverse saphenous vein graft to the posterior descending artery with endovascular harvest of the left radial artery and saphenous vein from the midcalf to the groin, clipping of the left atrial appendage with a 35 mm AtriCure clip Postoperative acute blood loss anemia, expected outcome secondary to hemodilution Postoperative paroxysmal atrial fibrillation, unexpected the potential outcome of surgery Postoperative intractable vomiting, expected outcome Postoperative urinary retention requiring reinitiation of Argueta, expected outcome The patient's currently sitting up in a recliner in the intensive care unit in no acute distress. She does complain of incisional chest pain but states that it is currently controlled on current medication regimen. Denies shortness of breath currently. States her nausea has gotten better, Phenergan seem to make a difference. She has been ambulatory in the [facility] with physical and occupational therapy. She remains in normal sinus rhythm. No new concerns. Objective - Vital Signs Vital signs: Vital Signs Temp 98.0 F 06/28/19 04:00 Pulse 100 06/28/19 08:28 Resp 20 06/28/19 04:00 BP 139/89 06/28/19 04:00 Pulse Ox 99 06/28/19 04:00 Intake & Output 06/27/19 06/28/19 06/28/19 18:59 06:59 18:59 Intake Total 240 260 Output Total 1450 1050 Balance -1210 -790 Weight 171 kg 167.7 kg Intake: Oral 240 260 Output: Urine 1450 1050 Other: Voiding Method Indwelling Catheter Indwelling Catheter ABP, PAP, CO, CI - Last Documented Arterial Blood Pressure 99/62 Pulmonary Artery Pressure 32/19 Cardiac Output 6.3 Cardiac Index 2.4 - Constitutional General appearance: Present: cooperative, morbidly obese, no acute distress - Respiratory Details: Lungs sounds diminished bilaterally. Respirations even, nonlabored. Currently on room air with oxygen saturation 94%. Able to achieve 750 mL on her incentive spirometer. Strong cough. - Cardiovascular Details: S1, S2 present. Regular rate and rhythm, sinus rhythm on telemetry. Sternum stable. Palpable peripheral pulses bilaterally. Generalized edema present. No calf pain or tenderness noted. Heart hugger in place with patient demonstrating appropriate use. Antiembolism stockings, SCDs present. - Gastrointestinal Gastrointestinal Comment(s): Abdomen soft, nontender, nondistended, obese. Active bowel sounds present 4 quadrants. Tolerating diet. Positive bowel movement yesterday. - Genitourinary Genitourinary Comment(s): Argueta present draining clear, yellow urine. About to be discontinued. - Integumentary Integumentary Comment(s): Skin is warm and dry with evidence of good perfusion. Left upper extremity slig htly ecchymotic, no redness or drainage. - Neurologic Neurologic: Present: CNII-XII intact - Musculoskeletal Musculoskeletal Comment(s): Left hand with full mobility, no numbness or tingling, good computer support specialist strength. Musculoskeletal: Present: gait normal, strength equal bilaterally - Psychiatric Psychiatric: Present: A&O x's 3, appropriate affect, intact judgment & insight - Allied health notes Allied health notes reviewed: nursing - Labs CBC & Chem 7: 06/28/19 05:08 06/28/19 05:08 Labs: Abnormal Lab Results - Last 24 Hours (Table) 06/27/19 06/27/19 06/27/19 Range/Units 11:49 16:39 20:40 RBC (3.80-5.40) m/uL Hgb (11.4-16.0) gm/dL Hct (34.0-46.0) % Plt Count (150-450) k/uL Chloride (98-107) mmol/L Carbon Dioxide (22-30) mmol/L POC Glucose (mg/dL) 125 H 71 L 106 H (75-99) mg/dL 06/28/19 06/28/19 06/28/19 Range/Units 05:08 05:08 06:42 RBC 3.65 L (3.80-5.40) m/uL Hgb 9.5 L (11.4-16.0) gm/dL Hct 30.5 L (34.0-46.0) % Plt Count 479 H (150-450) k/uL Chloride 97 L (98-107) mmol/L Carbon Dioxide 34 H (22-30) mmol/L POC Glucose (mg/dL) 73 L (75-99) mg/dL - Imaging and Cardiology Chest x-ray: report reviewed, image reviewed Assessment and Plan Assessment: 1. Coronary artery disease, status post off-pump 4 vessel CABG 2. History of hypertension 3. Hyperlipidemia 4. Uncontrolled insulin-dependent diabetes with hyperglycemia, hemoglobin A1c 12.4% 5. Asthma 6. Obstructive sleep apnea with home CPAP use 7. Morbid obesity with BMI 56 8. Remote history of pneumonia 9. Family history of diabetes and hypertension 10. Postoperative acute blood loss lamia 11. Postoperative paroxysmal atrial fibrillation, currently in sinus rhythm, status post clipping of the left atrial appendage 12. Postoperative intractable vomiting 13. Postoperative urinary retention Plan: 1. Continue to maximize therapy with aspirin, statin, Plavix, beta blockers, Cozaar, digoxin. Will increase beta gregorio therapy as tolerated 2. Continue Cardizem for radial artery spasm prophylaxis. Do not discontinued without discussing with cardiothoracic surgery 3. No anticoagulation necessary. Patient remains in normal sinus rhythm, left atrial appendage was clipped. 4. Encourage incentive spirometry use 10 times every hour while awake 5. Will monitor daily labs and x-rays. Electrolyte replacement per protocol. No transfusions. 6. Pain control with current medication regimen 7. Insulin management per primary care service 8. Increase activity, ambulate in hallway. PT/OT/cardiac rehab following 9. GI/DVT prophylaxis 10. Bronchodilators, CPAP management per pulmonology. NO IV steroids 11. Continue Reglan, as needed Phenergan for nausea 12. Continue IV diuresis 13. Transfer orders placed 2 days ago for 3 S. cardiac stepdown unit. May transfer when bed available. 14. Anticipate need for discharge to inpatient rehab due to need for daily physician monitoring and daily lab work. Discharge planning in progress, anticipate readiness for discharge to inpatient rehab tomorrow, 06/29/2019. 15. More recommendations to follow. Time with Patient: Greater than 30
--- NOTE | 2019-06-28 09:44 | P.PN ---
Subjective Progress Note Date: 06/28/19 This is a 53-year-old female with a PMH of type 2 diabetes mellitus poorly controlled, morbid obesity, hyperlipidemia, hypertension, asthma who presented for a scheduled quadruple bypass. The patient had undergone a cardiac catheterization on 06/14 and was found to have triple-vessel coronary artery disease for which bypass grafting was recommended.. The patient subsequently was admitted and underwent the quadruple vessel bypass on 06/[address] Montanez, with HERNDON to the diagonal and LAD, radial artery to the OM, SVG to the PDA, along with clipping of the left atrial appendage. The patient had Intra-Op A. fib which required cardioversion, with subsequent use of amiodarone due to sustained A. fib. The patient was seen and examined at the bedside in the medical ICU on 06/28. She notes significant improvement in her breathing since admission, and only mild episodic chest discomfort. She notes no further episodes of nausea or vomiting. Also denied cough, fever, or chills. Objective - Vital Signs Vital signs: Vital Signs Temp 98.0 F 06/28/19 04:00 Pulse 100 06/28/19 08:28 Resp 20 06/28/19 04:00 BP 139/89 06/28/19 04:00 Pulse Ox 99 06/28/19 04:00 Intake & Output 06/27/19 06/28/19 06/28/19 18:59 06:59 18:59 Intake Total 240 260 Output Total 1450 1050 Balance -1210 -790 Weight 171 kg 167.7 kg Intake: Oral 240 260 Output: Urine 1450 1050 Other: Voiding Method Indwelling Catheter Indwelling Catheter Indwelling Catheter ABP, PAP, CO, CI - Last Documented Arterial Blood Pressure 99/62 Pulmonary Artery Pressure Cardiac Output 6.3 Cardiac Index 2.4 - Exam General: Non-toxic, in no acute distress, appears older than stated age, morbidly obese HEENT: NC/AT, anicteric sclerae, moist conjunctiva, no lid-lag, PERRLA Cardiovascular: S1/S2 wnl, no murmurs, rubs, or gallops, midline sternotomy incision, closed and clean Lungs: Somewhat diminished breath sounds likely due to body habitus, normal respiratory effort, no accessory muscle use Abdominal: Soft, non-tender, non-distended, no guarding, rebound, or rigidity Skin: Warm, dry Extremities: No edema or contractures Psychiatric: Alert and oriented to person, place and time, appropriate affect Neuro: CN II-XII grossly intact, no focal neuro deficits - Labs CBC & Chem 7: 06/28/19 05:08 06/28/19 05:08 Labs: Abnormal Lab Results - Last 24 Hours (Table) 06/27/19 06/27/19 06/27/19 Range/Units 11:49 16:39 20:40 RBC (3.80-5.40) m/uL Hgb (11.4-16.0) gm/dL Hct (34.0-46.0) % Plt Count (150-450) k/uL Chloride (98-107) mmol/L Carbon Dioxide (22-30) mmol/L POC Glucose (mg/dL) 125 H 71 L 106 H (75-99) mg/dL 06/28/19 06/28/19 06/28/19 Range/Units 05:08 05:08 06:42 RBC 3.65 L (3.80-5.40) m/uL Hgb 9.5 L (11.4-16.0) gm/dL Hct 30.5 L (34.0-46.0) % Plt Count 479 H (150-450) k/uL Chloride 97 L (98-107) mmol/L Carbon Dioxide 34 H (22-30) mmol/L POC Glucose (mg/dL) 73 L (75-99) mg/dL Assessment and Plan Plan: Type 2 diabetes mellitus, poorly controlled -Decrease Levemir to 65 units daily at bedtime -Continue with NovoLog 5 units before meals 3 times a day -Blood glucose monitoring -Lispro insulin sliding scale -development educator -Endocrinology follow-up as an outpatient Nausea and vomiting -Significantly improved -Continue with Phenergan Hematuria, in setting of Argueta trauma -Continue with Argueta for now Acute blood loss anemia, anticipated following the surgery -Continue to monitor CBC Mild intermittent asthma -Continue with DuoNeb's when necessary CABG status post quadruple vessel bypass -Management as per cardiothoracic surgery Hypertension -Management as per cardiothoracic surgery Obstructive sleep apnea -Continue with CPAP Paroxysmal atrial fibrillation with RVR -Management as per cardiology Asymptomatic bacteriuria -Currently off Cipro Dr. Kimble is not currently seeing patients, on discharge can follow-up with Juany Moraes NP and after 07/16 Dr. Stanford will be covering Dr. Kimble's practice.
[2019-06-28] MEDS: ACETAMINOPHEN TAB 500 MG TAB PO PRN (10:11)
[2019-06-28] MEDS: ONDANSETRON 4 MG/2 ML VIAL IVP PRN (10:45)
[2019-06-28 11:43] LABS: Glucose,Whole Blood 104 mg/dL (75-99)
[2019-06-28] MEDS: MULTIVITAMINS, THERA 1 EACH TAB PO SCH (11:50)
[2019-06-28] MEDS: LOSARTAN 25 MG TAB PO SCH (11:50)
--- NOTE | 2019-06-28 14:08 | P.PN ---
Subjective Progress Note Date: 06/28/19 Principal diagnosis: 1. Coronary artery disease, status post off-pump 4 vessel CABG 2. History of hypertension 3. Hyperlipidemia 4. Uncontrolled insulin-dependent diabetes with hyperglycemia, hemoglobin A1c 12.4% 5. Asthma 6. Obstructive sleep apnea with home CPAP use 7. Morbid obesity with BMI 56 8. Remote history of pneumonia 9. Family history of diabetes and hypertension 10. Postoperative acute blood loss lamia 11. Postoperative paroxysmal atrial fibrillation, currently in sinus rhythm, status post clipping of the left atrial appendage 12. Postoperative intractable vomiting 13. Postoperative urinary retention 06/28/2019, patient seen eval examined during the round while covering for Dr. TRIPLETT ready doing well denies any chest pain off of oxygen on room air breathing comfortably denies any chest pain sitting upright on chair chest x-ray reviewed performed earlier today which shows bilateral basal infiltrate with small effusion slightly more on the left side chest x-ray overall continued to be stable and improved Objective - Vital Signs Vital signs: Vital Signs Temp 98.1 F 06/28/19 08:00 Pulse 90 06/28/19 12:00 Resp 14 06/28/19 12:00 BP 139/89 06/28/19 08:00 Pulse Ox 94 L 06/28/19 12:00 Intake & Output 06/27/19 06/28/19 06/28/19 18:59 06:59 18:59 Intake Total 240 260 200 Output Total 1450 1050 750 Balance -1210 -790 -550 Weight 171 kg 167.7 kg Intake: Oral 240 260 200 Output: Urine 1450 1050 750 Other: Voiding Method Indwelling Catheter Indwelling Catheter Toilet # Voids 2 ABP, PAP, CO, CI - Last Documented Arterial Blood Pressure 99/62 Pulmonary Artery Pressure 32/19 Cardiac Output 6.3 Cardiac Index 2.4 - Exam - Constitutional General appearance: Present: cooperative, morbidly obese, no acute distress - Respiratory Details: Lungs sounds diminished bilaterally. Respirations even, nonlabored. Currently on room air with oxygen saturation 94%. Able to achieve 750 mL on her incentive spirometer. Strong cough. - Cardiovascular Details: S1, S2 present. Regular rate and rhythm, sinus rhythm on telemetry. Sternum stable. Palpable peripheral pulses bilaterally. Generalized edema present. No calf pain or tenderness noted. Heart hugger in place with patient demonstrating appropriate use. Antiembolism stockings, SCDs present. - Gastrointestinal Gastrointestinal Comment(s): Abdomen soft, nontender, nondistended, obese. Active bowel sounds present 4 quadrants. Tolerating diet. Positive bowel movement yesterday. - Genitourinary Genitourinary Comment(s): Argueta present draining clear, yellow urine. About to be discontinued. - Integumentary Integumentary Comment(s): Skin is warm and dry with evidence of good perfusion. Left upper extremity slightly ecchymotic, no redness or drainage. - Neurologic Neurologic: Present: CNII-XII intact - Musculoskeletal Musculoskeletal Comment(s): Left hand with full mobility, no numbness or tingling, good acute specialist strength. Musculoskeletal: Present: gait normal, strength equal bilaterally - Psychiatric Psychiatric: Present: A&O x's 3, appropriate affect, intact judgment & insight - Labs CBC & Chem 7: 06/28/19 05:08 06/28/19 05:08 Labs: Abnormal Lab Results - Last 24 Hours (Table) 06/27/19 06/27/19 06/28/19 Range/Units 16:39 20:40 05:08 RBC 3.65 L (3.80-5.40) m/uL Hgb 9.5 L (11.4-16.0) gm/dL Hct 30.5 L (34.0-46.0) % Plt Count 479 H (150-450) k/uL Chloride (98-107) mmol/L Carbon Dioxide (22-30) mmol/L POC Glucose (mg/dL) 71 L 106 H (75-99) mg/dL 06/28/19 06/28/19 06/28/19 Range/Units 05:08 06:42 11:42 RBC (3.80-5.40) m/uL Hgb (11.4-16.0) gm/dL Hct (34.0-46.0) % Plt Count (150-450) k/uL Chloride 97 L (98-107) mmol/L Carbon Dioxide 34 H (22-30) mmol/L POC Glucose (mg/dL) 73 L 104 H (75-99) mg/dL Assessment and Plan Assessment: 1. Coronary artery disease, status post off-pump 4 vessel CABG 2. History of hypertension 3. Hyperlipidemia 4. Uncontrolled insulin-dependent diabetes with hyperglycemia, hemoglobin A1c 12.4% 5. Asthma 6. Obstructive sleep apnea with home CPAP use 7. Morbid obesity with BMI 56 8. Remote history of pneumonia 9. Family history of diabetes and hypertension 10. Postoperative acute blood loss lamia 11. Postoperative paroxysmal atrial fibrillation, currently in sinus rhythm, status post clipping of the left atrial appendage 12. Postoperative intractable vomiting 13. Postoperative urinary retention Plan: Continue maximal medical therapy with beta blockers and RAY inhibitor's digoxin and aspirin Deep breathing exercise incentive spirometry Continue bronchodilator CPAP at night and when necessary during the day Agree with discharge planning tomorrow
[2019-06-28] MEDS ORDERED: MENTHOL (NICE) LOZENGE MUCOUS MEM PRN (15:26)
[2019-06-28] MEDS ORDERED: MAG HYDROX/AL HYDROX/SIMETH 30 ML CUP PO PRN (15:26)
[2019-06-28 17:01] LABS: Glucose,Whole Blood 114 mg/dL (75-99)
[2019-06-28 20:32] LABS: Glucose,Whole Blood 115 mg/dL (75-99)
[2019-06-28] MEDS: SENNOSIDES-DOCUSATE SODIUM 1 EACH TAB PO SCH (20:37)
[2019-06-28] MEDS: MONTELUKAST 10 MG TAB PO SCH (20:38)
[2019-06-28] MEDS ORDERED: INSULIN DETEMIR (LEVEMIR) 100 UNIT/ML SYR SQ SCH (21:00)
[2019-06-28] MEDS: LATANOPROST 0.005% OPHTH DROPS 2.5 ML BTL BOTH EYES SCH (21:00)
[2019-06-29] MEDS: METOCLOPRAMIDE 5 MG/ML 2 ML VIAL IVP SCH ×3 (00:36→11:49)
[2019-06-29] MEDS: HEPARIN SODIUM,PORCINE 5,000 UNIT/ML 1 ML VIAL SQ SCH ×2 (00:36→11:50)
[2019-06-29] MEDS: IPRATROPIUM-ALBUTEROL 3 ML NEB INHALATION PRN ×2 (00:41→04:04)
[2019-06-29 06:25] LABS: HCT 31.8 % (34.0-46.0); HGB 10.1 gm/dL (11.4-16.0); Hypochromasia Slight; MCH 25.8 pg (25.0-35.0); MCHC 31.7 g/dL (31.0-37.0); MCV 81.4 fL (80.0-100.0); Mean Platelet Volume 6.2; Platelet Count 488 k/uL (150-450); RBC 3.91 m/uL (3.80-5.40); RDW 13.6 % (11.5-15.5); WBC 10.6 k/uL (3.8-10.6)
[2019-06-29 06:37] LABS: African American GFR (CKD) >90 (>60 ml/min/1.73 sqM); Anion Gap 8 mmol/L; Blood Urea Nitrogen 15 mg/dL (7-17); Calcium 8.6 mg/dL (8.4-10.2); Carbon Dioxide 32 mmol/L (22-30); Chloride 98 mmol/L (98-107); Glucose 131 mg/dL (74-99); Potassium 4.3 mmol/L (3.5-5.1); Sodium 138 mmol/L (137-145)
[2019-06-29] MEDS: PANTOPRAZOLE 40 MG TABLET PO SCH (07:09)
[2019-06-29] MEDS: INSULIN ASPART (NovoLOG) 100 UNIT/ML VIAL SQ SCH ×4 (07:09→13:10)
[2019-06-29 07:10] LABS: Glucose,Whole Blood 119 mg/dL (75-99)
[2019-06-29] MEDS: IPRATROPIUM-ALBUTEROL 3 ML NEB INHALATION SCH ×2 (07:47→11:29)
[2019-06-29] MEDS: BUDESONIDE 0.5 MG/2 ML NEBU INHALATION SCH (07:47)
--- NOTE | 2019-06-29 08:32 | XR ---
EXAMINATION TYPE: XR chest 2V DATE OF EXAM: 06/29/2019 COMPARISON: Prior chest x-ray 06/27/2019, 06/28/2009 HISTORY: Postop TECHNIQUE: Frontal and lateral views of the chest are obtained. FINDINGS: Patient is rotated, exam is expiratory. Patient is post median sternotomy and atrial appen dage clipping placement. There are overlying cardiac leads. There is no pneumothorax. Bibasilar incre ased density persists, central vascularity appears prominently. Aorta is dense. Heart size is obscure d but thought to be enlarged. IMPRESSION: There may be a component of volume overload, pulmonary venous hypertension and interstit ial edema, probable bibasilar effusions left greater than right.
[2019-06-29 08:43] VITALS: BP 99/66; RESP 13; TEMP 97.1
[2019-06-29] MEDS ORDERED: DILTIAZEM CD 180 MG CAP.ER.24H PO SCH (09:00)
[2019-06-29] MEDS ORDERED: DIGOXIN 250 MCG TAB PO SCH (09:00)
--- NOTE | 2019-06-29 09:39 | PN ---
PROGRESS NOTE PULMONARY/CRITICAL CARE PROGRESS NOTE: DATE OF SERVICE: June 29, 2019 This is a 53-year-old black female, postop day #7 status post off pump 4-vessel bypass grafting. The patient has been weaned to room air. No IV fluids running. She was complaining of nausea. That is resolved. She was being treated with Reglan, Zofran and Tigan. Her chest x-ray continues to show an effusion on the left side. We did do ultrasound. The effusions were reasonably small and again, because of her body habitus, I think it would be difficult for her to have a thoracentesis at the bedside and rather if done, should be done by Interventional Radiology with ultrasound guidance. At nighttime, she is on BiPAP at 12 and 4 and 28%. She has a history of morbid obesity, type 2 diabetes, allergic rhinitis, sleep apnea syndrome, benign essential hypertension, hyperlipidemia, and postoperative atelectasis. She also had atrial fibrillation with RVR, which is resolved. PHYSICAL EXAMINATION: VITAL SIGNS: Current vital signs are reviewed. They include a temperature 97.1, heart rate 97, respiratory rate 13, blood pressure 99/66, mean 77, room air saturation 99%. GENERAL: Appears in no acute distress. HEENT: Examination is grossly unremarkable. Mucous membranes are moist. No oral lesions. NECK: Supple. Full range of motion. No adenopathy, thyromegaly or neck vein distention. CARDIOVASCULAR: Examination reveals regular rhythm and rate. S1, S2 normal. No murmur. No S3, S4. LUNGS: Lung sounds reveal a few scattered rhonchi particularly at the left base. A few crackles are noted bilaterally. No wheezes. Upper lung frankel are clear. ABDOMEN: Obese. Bowel sounds are heard. EXTREMITIES: Are intact. No edema. No cyanosis or clubbing. SKIN: Without rash. NEUROLOGIC: Examination is brief but nonfocal. White count 10.6, hemoglobin 10.1, hematocrit 31.8, platelet count 488,000. Sodium 138, potassium 4.3, chloride 98, CO2 is 32. Anion gap is 8. BUN and creatinine were 15 and 0.61. Microbiology is reviewed. Chest x-rays reviewed. ASSESSMENT: 1. Postoperative day #7 status post off pump 4-vessel bypass grafting. 2. Routine postoperative ventilator management, resolved. 3. Mild intermittent asthma, not active at this time. 4. Morbid obesity. 5. Type 2 diabetes mellitus. 6. Seasonal allergies. 7. History of sleep apnea syndrome, maintained on home CPAP. 8. Benign essential hypertension. 9. Hyperlipidemia. 10.Postoperative atelectasis and postoperative small bilateral pleural effusions. 11.Atrial fibrillation with rapid ventricular response. 12.Urinary tract infection, treated. 13.Postoperative nausea, resolved. PLAN: The patient is doing reasonably well. The patient could be transferred out to the Cardiology floor. We will allow the cardiothoracic surgeons and shellacker to make that decision. She has Pulmonary following her. I will sign off the case after today. No additional recommendations are made. Prognosis is guarded. MMODL / IJN: [id number] /
--- NOTE | 2019-06-29 10:05 | P.PN ---
Subjective Progress Note Date: 06/29/19 Principal diagnosis: This is a 53-year-old female with a PMH of type 2 diabetes mellitus poorly controlled, morbid obesity, hyperlipidemia, hypertension, asthma who presented for a scheduled quadruple bypass. The patient had undergone a cardiac catheterization on 06/14 and was found to have triple-vessel coronary artery disease for which bypass grafting was recommended.. The patient subsequently was admitted and underwent the quadruple vessel bypass on 06/[address] Montanez, with HERNDON to the diagonal and LAD, radial artery to the OM, SVG to the PDA, along with clipping of the left atrial appendage. The patient had Intra-Op A. fib which required cardioversion, with subsequent use of amiodarone due to sustained A. fib. Patient seen and examined at bedside, doing well, no major concerns today. Case management set the patient up with home care. Objective - Vital Signs Vital signs: Vital Signs Temp 98.8 F 06/29/19 04:00 Pulse 93 06/29/19 04:20 Resp 21 06/29/19 04:00 BP 128/73 06/29/19 04:00 Pulse Ox 95 06/29/19 04:00 Intake & Output 06/28/19 06/29/19 06/29/19 18:59 06:59 18:59 Intake Total 600 Output Total 1350 850 Balance -750 -850 Weight 167.3 kg Intake: Oral 600 Output: Urine 1350 850 Other: Voiding Method Toilet Toilet # Voids 2 ABP, PAP, CO, CI - Last Documented Arterial Blood Pressure 99/62 Pulmonary Artery Pressure 32/19 Cardiac Output 6.3 Cardiac Index 2.4 - Exam Constitutional: No acute distress, conversant, pleasant Eyes: Anicteric sclerae, moist conjunctiva, no lid-lag, PERRLA ENMT: NC/AT,Oropharynx clear, no erythema, exudates Neck:Supple, FROM, no masses, or JVD, No carotid bruits; No thyromegaly Lungs: Clear to auscultation, Clear to percussion, Normal respiratory effort, no accessory muscle use Cardiovascular: Heart regular in rate and rhythm, No murmurs, gallops, or rubs, +1.5 peripheral edema, chest hugger in place midline sternotomy incision closed and clean Abdominal: Soft Nontender, nom distended, no guarding, no rebound or rigidity, Normoactive bowel sounds No hepatomegaly, No splenomegaly, No palpable mass No abdominal wall hernia noted Skin: Normal temperature, tone, texture, turgor, No induration No subcutaneous nodules, No rash, lesions, No ulcers Extremities:No digital cyanosis No clubbing, Pedal pulses intact and symmetrical Radial pulses intact and symmetrical Normal gait and station, No calf tenderness Psychiatric: Alert and oriented to person, place and time, Appropriate affect Intact judgement Neuro: Muscles Strength 5/5 in all 4 extremities, Sensation to light touch shilpa sly present throughout, Cranial nerves II-XII grossly intact. No focal sensory deficits - Labs CBC & Chem 7: 06/29/19 05:51 06/29/19 05:51 Labs: Abnormal Lab Results - Last 24 Hours (Table) 06/28/19 06/28/19 06/28/19 Range/Units 11:42 16:59 20:30 Hgb (11.4-16.0) gm/dL Hct (34.0-46.0) % Plt Count (150-450) k/uL Carbon Dioxide (22-30) mmol/L Glucose (74-99) mg/dL POC Glucose (mg/dL) 104 H 114 H 115 H (75-99) mg/dL 06/29/19 06/29/19 06/29/19 Range/Units 05:51 05:51 07:08 Hgb 10.1 L (11.4-16.0) gm/dL Hct 31.8 L (34.0-46.0) % Plt Count 488 H (150-450) k/uL Carbon Dioxide 32 H (22-30) mmol/L Glucose 131 H (74-99) mg/dL POC Glucose (mg/dL) 119 H (75-99) mg/dL Assessment and Plan Plan: Type 2 diabetes mellitus, poorly controlled -Decrease Levemir to 65 units daily at bedtime -Continue with NovoLog 5 units before meals 3 times a day -Blood glucose monitoring -Lispro insulin sliding scale -tip fixer -Endocrinology follow-up as an outpatient Nausea and vomiting -Significantly improved -Continue with Phenergan Hematuria, in setting of Argueta trauma -Continue with Argueta for now Acute blood loss anemia, anticipated following the surgery -Continue to monitor CBC Mild intermittent asthma -Continue with DuoNeb's when necessary CABG status post quadruple vessel bypass -Management as per cardiothoracic surgery Hypertension -Management as per cardiothoracic surgery Obstructive sleep apnea -Continue with CPAP Paroxysmal atrial fibrillation with RVR -Management as per cardiology Asymptomatic bacteriuria -Currently off Cipro Dr. Kimble is not currently seeing patients, on discharge can follow-up with Juany Moraes NP and after 07/16 Dr. Stanford will be covering Dr. Kimble's practice. Patient stable for discharge, we will continue current insulin dosing regimen at home
[2019-06-29 10:59] VITALS: BMI 57.7
[2019-06-29 11:32] VITALS: PULSE 105
--- NOTE | 2019-06-29 11:39 | P.DS ---
Providers Date of admission: 06/22/19 06:12 Expected date of discharge: 06/29/19 Attending physician: Sammy Montanez Consults: 06/22/19 14:00 Consult Physician Routine Consulting Provider: Moreno Gallagher Consult Reason/Comments: diabetes/medical management Do you want consulting provider notified?: Yes Consult Physician Routine Consulting Provider: Asiya Abrams Consult Reason/Comments: Warp Yarn Sorter Consult: post cardiac surgery Do you want consulting provider notified?: Yes Consult Physician Routine Consulting Provider: Russell Delvalle Consult Reason/Comments: Music Copyist Consult: post cardiac surgery Do you want consulting provider notified?: Yes Consult Physician Routine Consulting Provider: Raymond Delvalle Consult Reason/Comments: Pulmonary Management Do you want consulting provider notified?: Yes 06/24/19 10:19 Consult Physician Routine Consulting Provider: Rickey Kuhn Consult Reason/Comments: inpt. rehab Do you want consulting provider notified?: Yes Primary care physician: Stated None Hospital Course: FINAL DIAGNOSIS: 1. Coronary artery disease 2. Hypertension 3. Hyperlipidemia 4. Uncontrolled insulin dependent diabetes with hyperglycemia, hemoglobin A1c 12.4% 5. Asthma 6. Obstructive sleep apnea with home CPAP use 7. Morbid obesity with BMI 56 8. Remote history of pneumonia 9. Family history of diabetes and hypertension 10. Postoperative acute blood loss anemia 11. Postoperative paroxysmal atrial fibrillation 12. Postoperative intractable vomiting 13. Postoperative urinary retention PRINCIPAL PROCEDURE: 1. Off-pump coronary artery bypass graft 4 with sequential left internal mammary artery to the diagonal and left anterior descending artery, left radial artery to the obtuse marginal, reverse saphenous vein graft to the posterior descending artery 2. Endovascular harvest of the left radial artery and left greater saphenous vein from the mid calf to the groin 3. Clipping of the left atrial appendage with a 35 mm AtriCure clip HISTORY OF PRESENT ILLNESS: This is a 53-year-old obese female who follows on an outpatient basis with Dr. Cher Kimble and Dr. UZIEL Delvalle. She had presented to [facility] emergency room at the end of March 2019 with complaints of significant shortness of breath and mild chest pain along with lower extremity edema. She was admitted for acute exacerbation of asthma, EKG and troponins were benign, and she was recommended to follow-up outpatient for stress testing. She did have a stress test by Dr. JAMES Delvalle which was abnormal and she was recommended to undergo heart catheterization. The catheterization revealed severe triple vessel calcified coronary artery disease with proximal LAD 60% stenosis, mid LAD 80% stenosis, diagonal branch with 80% stenosis, groove branch of the circumflex with 70-80% stenosis, and right coronary artery with diffuse disease ranging from 60-80%. LV gram was also completed demonstrating normal LV function with EF 60%, no gradient across aortic valve, and no mitral regurgitation. Consultation was placed to Dr. Montanez from cardiothoracic surgery. She was recommended to undergo coronary artery bypass graft surgery. The usual perioperative course was discussed in detail with the patient and her family, all risks and benefits were explained, all questions were answered, and consent was obtained to proceed with surgery. The patient was discharged to home on maximal medical therapy to return as an outpatient and surgery was scheduled at the earliest possible date. HOSPITAL COURSE: The patient was brought to the hospital on 06/22/2019, taken to the preoperative area, prepared in the usual fashion, and subsequently taken to the operating room where Dr. Montanez performed off-pump coronary artery bypass graft 4 with sequential left internal mammary artery to the diagonal and left anterior descending artery, left radial artery to the obtuse marginal, reverse saphenous vein graft to the posterior descending artery, endovascular harvest of the left radial artery and left greater saphenous vein from the mid calf to the groin, and clipping of the left atrial appendage with a 35 mm AtriCure clip. Upo n completion of surgery the patient was transferred to the cardiovascular intensive care unit where she was recovered, monitored hemodynamically, and where she progressed to cardiac rehabilitation phase 1. She was extubated, all lines, tubes, and drips were discontinued when appropriate, and transfer orders were placed for 3 S. cardiac stepdown unit, however there was no bed availability and the patient remained on ICU as a stepdown patient until discharge. She did experience acute blood loss anemia requiring no transfusion, paroxysmal atrial fibrillation with spontaneous conversion back into the normal sinus rhythm, intractable vomiting which was eventually controlled, and urinary retention which resolved without treatment. Her oxygen was titrated down, she continued to work with physical and occupational therapy, she was tolerating oral diet, her pain was controlled, and she was ready to be discharged to home with [facility] on postoperative day #7. She received written and verbal instruction regarding her medications, activity restrictions, signs and symptoms requiring physician notification, and follow-up appointments. COMPLICATIONS: The patient experienced postoperative complications of acute blood loss anemia, paroxysmal atrial fibrillation, intractable vomiting, and urinary retention, all of which were treated accordingly. Patient Condition at Discharge: Stable Plan - Discharge Summary Discharge Rx Participant: Yes New Discharge Prescriptions: New Aspirin 325 mg PO DAILY #30 tab Diltiazem Cd [Cardizem CD] 180 mg PO DAILY #30 cap.er.24h Loratadine [Claritin] 10 mg PO DAILY #30 tab Losartan [Cozaar] 25 mg PO Q24H #30 tab Digoxin [Lanoxin] 250 mcg PO DAILY #30 tab Furosemide [Lasix] 40 mg PO BID #60 tablet Metoprolol Tartrate [Lopressor] 75 mg PO BID #120 tab Nystatin 100,000 Unit/ml Susp [Mycostatin Oral Susp] 500,000 unit PO QID #30 cup Promethazine [Phenergan] 12.5 mg PO Q6HR #30 tablet Clopidogrel [Plavix] 75 mg PO DAILY #30 tab Pantoprazole [Protonix] 40 mg PO AC-BRKFST #30 tablet.dr Rodriguez-Docusate Sodium [Senokot-S] 2 each PO HS PRN #14 tab PRN Reason: Constipation Acetaminophen Tab [Tylenol] 1,000 mg PO Q6HR PRN #120 tab PRN Reason: Fever and/ or Mild Pain Insulin Detemir (Levemir) [Levemir] 65 unit SQ HS 30 Days syr INSULIN ASPART (NovoLOG) [NovoLOG (formulary)] 5 unit SQ AC-TID 30 Days vial INSULIN ASPART (NovoLOG) [NovoLOG (formulary)] 0 unit SQ ACHS 30 Days vial Continue Mometasone/Formoterol [Dulera 100 Mcg/5 Mcg Inhaler] 2 puff INHALATION RT-BID Albuterol Inhaler [Ventolin Hfa Inhaler] 1 - 2 puff INHALATION RT-Q6H PRN #1 inhaler PRN Reason: Shortness Of Breath Albuterol Nebulized [Ventolin Nebulized] 2.5 mg INHALATION RT-Q4H PRN PRN Reason: Shortness Of Breath Latanoprost/Pf [Latanoprost 0.005% Eye Drop] 1 drop BOTH EYES HS Atorvastatin [Lipitor] 80 mg PO HS 30 Days #30 tab Multivitamins, Thera [Multivitamin (formulary)] 1 tab PO DAILY #30 tab Montelukast Sodium [Singulair] 10 mg PO HS #30 tab Discontinued Insulin Glargine,Hum.rec.anlog [Basaglar Kwikpen U-100] 75 unit SQ HS Insulin Lispro [Admelog] 30 unit SQ AC-TID Aspirin [Adult Low Dose Aspirin EC] 81 mg PO DAILY Losartan [Cozaar] 50 mg PO DAILY 30 Days #30 tab Metoprolol Tartrate [Lopressor] 25 mg PO BID #60 tab Diltiazem Oral [Cardizem*] 60 mg PO DAILY #30 tab Discharge Medication List Mometasone/Formoterol [Dulera 100 Mcg/5 Mcg Inhaler] 2 puff INHALATION RT-BID 07/26/18 [History] Albuterol Inhaler [Ventolin Hfa Inhaler] 1 - 2 puff INHALATION RT-Q6H PRN #1 inhaler 12/20/18 [Rx] Albuterol Nebulized [Ventolin Nebulized] 2.5 mg INHALATION RT-Q4H PRN 03/31/19 [History] Latanoprost/Pf [Latanoprost 0.005% Eye Drop] 1 drop BOTH EYES HS 06/12/19 [History] Acetaminophen Tab [Tylenol] 1,000 mg PO Q6HR PRN #120 tab 06/29/19 [Rx] Aspirin 325 mg PO DAILY #30 tab 06/29/19 [Rx] Atorvastatin [Lipitor] 80 mg PO HS 30 Days #30 tab 06/29/19 [Rx] Clopidogrel [Plavix] 75 mg PO DAILY #30 tab 06/29/19 [Rx] Digoxin [Lanoxin] 250 mcg PO DAILY #30 tab 06/29/19 [Rx] Diltiazem Cd [Cardizem CD] 180 mg PO DAILY #30 cap.er.24h 06/29/19 [Rx] Furosemide [Lasix] 40 mg PO BID #60 tablet 06/29/19 [Rx] INSULIN ASPART (NovoLOG) [NovoLOG (formulary)] 0 unit SQ ACHS 30 Days vial 06/29/19 [Rx] INSULIN ASPART (NovoLOG) [NovoLOG (formulary)] 5 unit SQ AC-TID 30 Days vial 06/29/19 [Rx] Insulin Detemir (Levemir) [Levemir] 65 unit SQ HS 30 Days syr 06/29/19 [Rx] Loratadine [Claritin] 10 mg PO DAILY #30 tab 06/29/19 [Rx] Losartan [Cozaar] 25 mg PO Q24H #30 tab 06/29/19 [Rx] Metoprolol Tartrate [Lopressor] 75 mg PO BID #120 tab 06/29/19 [Rx] Montelukast Sodium [Singulair] 10 mg PO HS #30 tab 06/29/19 [Rx] Multivitamins, Thera [Multivitamin (formulary)] 1 tab PO DAILY #30 tab 06/29/19 [Rx] Nystatin 100,000 Unit/ml Susp [Mycostatin Oral Susp] 500,000 unit PO QID #30 cup 06/29/19 [Rx] Pantoprazole [Protonix] 40 mg PO AC-BRKFST #30 tablet.dr 06/29/19 [Rx] Promethazine [Phenergan] 12.5 mg PO Q6HR #30 tablet 06/29/19 [Rx] Sennosides-Docusate Sodium [Senokot-S] 2 each PO HS PRN #14 tab 06/29/19 [Rx] Follow up Appointment(s)/Referral(s): Nicole Mendoza NPC [Nurse Practitioner] - 07/02/19 11:00 am Russell Delvalle MD [STAFF PHYSICIAN] - 2 Weeks (Office will call with appointment) Sammy Montanez MD [STAFF PHYSICIAN] - 07/19/19 1:00 pm Juany Moraes NPC [Nurse Practitioner] - 07/06/19 11:00 am () [facility], [NON-STAFF] - As Needed Raymond Delvalle MD [STAFF PHYSICIAN] - 07/09/19 4:15 pm () Ambulatory/Diagnostic Orders: Complete Blood Count w/diff [LAB.AMB] Time Frame: 3 Days, Location: None Selected Comprehensive Metabolic Panel [LAB.AMB] Time Frame: 3 Days, Location: None Selected Activity/Diet/Wound Care/Special Instructions: DISCHARGE INSTRUCTIONS: 1. No driving for 4 weeks, or until physician gives their ok. 2. The patient should sleep in their own bed, no medical bed needed. 3. Stairs are not an issue. If the bedroom is upstairs, it is advised that the patient go up at night and down in the morning for the first week. Go slowly, using handrail and take 1 step at a time. 4. ZAINAB hose are to be worn for 30 days or until physician discontinues. 5. Heart hugger is to be worn 100% of the time until physician discontinues.(except when showering) 6. No lifting, pushing, or pulling more than 10 pounds for 12 weeks. The physician will advise of any restriction changes. 7. The patient is expected to continue the prescribed walking program. 8. Continue pain control per as needed orders. 9. Continue with incentive spirometry and splinting/heart hugger until otherwise directed by the physician. 10. Must shower daily using liquid antibacterial soap and a separate white washcloth for each individual incision. 11. Routine sternal incision care. No powders, lotions, ointments on incisions. 12. Please call surgeon/LUMBER INSPECTOR for temp greater than 101 F or purulent drainage from incisions. 13. All prescriptions given by surgeon for 30 days. Refills need to be filled through car dryer/primary care physician. 14. A Red armband has been placed on the patient. It should be worn for 30 days post surgery and will be removed by the cardiac surgeons. If an ER visit is necessary, please make sure the number on the Red armband is called. HOME HEALTH SERVICES TO PROVIDE: RN SKILLED HOME CARE SERVICES FOR POST-OP SURGICAL PATIENTS WITH THE FOLLOWING: Coronary Artery Bypass Surgery (CABG), Mitral Valve Replacement/Rep air ( MVR), Aortic Valve Replacement/Repair (AVR) RN TO CONTINUE EDUCATION FROM ``ROAD TO A HEALTH HEART PATIENT EDUCATION MANUAL (GIVEN TO PATIENT IN THE HOSPITAL) MEDICATION RECONCILIATION WITH EDUCATION NEEDED ON FIRST HOME VISIT EMPHASIZE IMPORTANCE OF WEARING BREAST SUPPORT/HEART HUGGER ENCOURAGE USE OF INCENTIVE SPIROMETER 10 X EVERY HOUR WHILE AWAKE ENCOURAGE UTILIZATION OF LOWER EXTREMITY COMPRESSION STOCKINGS/ZAINAB HOSE and ELEVATE LEGS ABOVE LEVEL OF HEART WHILE AT REST. ENCOURAGE AMBULATION 3-5x/day INCREASING TOLERATES, WHILE AVOID EXTREMES IN TEMPERATURE FREQUENCY: RN TO OPEN THE PATIENT WITHIN 24 HOURS OF DISCHARGE WITH TELEHEALTH INSTALLED AT [facility], RN TO VISIT 2-3 X A WEEK FOR 4 WEEKS ESTABLISHED BY PATIENT NEEDS. LABORATORY: CBC, CMP TO BE DRAWN ON THIRD DAY POST DISCHARGE, (RAN STAT) FAX RESULTS TO [phone]. TELEHEALTH PARAMETERS: WEIGHT: NOTIFY MD OF WEIGHT GAIN OF 2 LBS IN 24 HOURS OR 5 LBS IN ONE WEEK HR: NOTIFY MD OF HR <55 BPM OR HR>100 BPM BP: NOTIFY MD IF BP <90/55 OR BP>140/100 O2 SAT: NOTIFY MD IF PO2<93% ON ROOM AIR SEND TELEHEALTH REPORT TO TIE PULLER AND CARDIOVASCULAR SURGEON THE FIRST WEEK OF CARE AND THEN BI-WEEKLY. PLEASE ADDITIONALLY COMMUNICATE ANY ABNORMALS AND NEW FINDINGS TO THE SURGEONS OFFICE. Discharge Disposition: HOME WITH HOME HEALTH SERVICES
[2019-06-29] MEDS: LORATADINE 10 MG TAB PO SCH (11:49)
[2019-06-29] MEDS: NYSTATIN 100,000 UNIT/ML SUSP 500,000 UNIT/5 ML CUP PO SCH ×2 (11:49→13:10)
[2019-06-29] MEDS: ATORVASTATIN 40 MG TAB PO SCH (11:49)
[2019-06-29] MEDS: CLOPIDOGREL 75 MG TAB PO SCH (11:50)
[2019-06-29] MEDS: MULTIVITAMINS, THERA 1 EACH TAB PO SCH (11:50)
[2019-06-29] MEDS: ASPIRIN 325 MG TAB PO SCH (11:50)
[2019-06-29] MEDS: FUROSEMIDE 10 MG/ML 4 ML VIAL IV SCH (11:50)
[2019-06-29] MEDS: LOSARTAN 25 MG TAB PO SCH (11:50)
[2019-06-29] MEDS: METOPROLOL TARTRATE 25 MG TAB PO SCH (11:51)
[2019-06-29] MEDS: FLUTICASONE 50MCG/SPRAY NASAL 16GM EA NOSTRIL SCH (11:52)
--- NOTE | 2019-06-29 13:50 | PN ---
PROGRESS NOTE This lady had aortocoronary bypass surgery. She is doing well. She is maintaining sinus rhythm. Hemodynamically, stable. Doing some improvement on incentive spirometry. Vitals are stable. S1, S2 heard normally, but distantly. Lungs reveal improved air entry. Abdomen and lower extremity exam unchanged. Plan is to continue current medications, incentive spirometry and pulmonary toilet and see how she does. Overall, this lady is doing well. MMODL / IJN: [id number] /
--- NOTE | 2019-06-29 20:24 | PN ---
PROGRESS NOTE DATE OF SERVICE: 06/29/2019 This patient has been hemodynamically stable. Her IS is up to 1500. On physical examination, her vitals are stable. She is afebrile. Her chest reveals decreased breath sounds at bases. Cardiovascular system is in S1, S2. Abdomen is soft. There is trace pedal edema. IMPRESSION AT THIS TIME: 1. Coronary artery disease, status post coronary artery bypass. 2. Severe asthma with some airway remodeling. 3. Diabetes mellitus. 4. Obesity. 5. Obstructive sleep apnea. I agree with discharge planning with close outpatient followup. She was counseled regarding her condition and our approach and I did discuss my thoughts with the cardiothoracic team as well. She was counseled regarding her conditions. MMODL / IJN: [id number] /
== END 2019-06-29 01:00 | disposition home health service (06) | DRG 236 ==
LOC: 2ORMAIN 06:12 → 2SICU 13:38
PROVIDERS: ADMIT Thoracic Surgery (Cardiothoracic Vascular Surgery); ATTEND Thoracic Surgery (Cardiothoracic Vascular Surgery)
PROC: 02L70CK Occlusion of Left Atrial Appendage with Extraluminal Device, Open Approach (ICD-10-PCS; principal; 2019-06-22 08:00)
PROC: 03BC4ZZ Excision of Left Radial Artery, Percutaneous Endoscopic Approach (ICD-10-PCS; principal; 2019-06-22 08:00)
PROC: 021009W Bypass Coronary Artery, One Artery from Aorta with Autologous Venous Tissue, Open Approach (ICD-10-PCS; principal; 2019-06-22 08:00)
PROC: 02100AW Bypass Coronary Artery, One Artery from Aorta with Autologous Arterial Tissue, Open Approach (ICD-10-PCS; principal; 2019-06-22 08:00)
PROC: 02110Z9 Bypass Coronary Artery, Two Arteries from Left Internal Mammary, Open Approach (ICD-10-PCS; principal; 2019-06-22 08:00)
PROC: 06BQ4ZZ Excision of Left Saphenous Vein, Percutaneous Endoscopic Approach (ICD-10-PCS; principal; 2019-06-22 08:00)
DX: I25.10 Atherosclerotic heart disease of native coronary artery without angina pectoris (principal); D62 Acute posthemorrhagic anemia; Z68.43 Body mass index [BMI] 50.0-59.9, adult; J90 Pleural effusion, not elsewhere classified; J98.11 Atelectasis; N39.0 Urinary tract infection, site not specified; T83.83XA Hemorrhage due to genitourinary prosthetic devices, implants and grafts, initial encounter; E11.649 Type 2 diabetes mellitus with hypoglycemia without coma; E11.65 Type 2 diabetes mellitus with hyperglycemia; E66.01 Morbid (severe) obesity due to excess calories; E78.2 Mixed hyperlipidemia; G47.33 Obstructive sleep apnea (adult) (pediatric); E11.319 Type 2 diabetes mellitus with unspecified diabetic retinopathy without macular edema; H40.9 Unspecified glaucoma; I10 Essential (primary) hypertension; I48.0 Paroxysmal atrial fibrillation; J44.9 Chronic obstructive pulmonary disease, unspecified; J45.20 Mild intermittent asthma, uncomplicated; T46.2X5A Adverse effect of other antidysrhythmic drugs, initial encounter; Y84.6 Urinary catheterization as the cause of abnormal reaction of the patient, or of later complication, without mention of misadventure at the time of the procedure; Z79.4 Long term (current) use of insulin; Z79.51 Long term (current) use of inhaled steroids; Z79.82 Long term (current) use of aspirin; Z79.899 Other long term (current) drug therapy; Z80.0 Family history of malignant neoplasm of digestive organs; Z82.49 Family history of ischemic heart disease and other diseases of the circulatory system; Z83.3 Family history of diabetes mellitus; Z87.01 Personal history of pneumonia (recurrent); Z91.19 Patient's noncompliance with other medical treatment and regimen; Z99.89 Dependence on other enabling machines and devices; Z91.048 Other nonmedicinal substance allergy status; I95.9 Hypotension, unspecified; R33.9 Retention of urine, unspecified
CPT/HCPCS: 36410; 71045; 71046; 74018; 76604; 76705; 76937; 80048; 80053; 80074; 80162; 81001; 82150; 82330; 82728; 82805; 83540; 83550; 83690; 83735; 85025; 85027; 85520; 85610; 85730; 86850; 86891; 86900; 86901; 86920; 87086; 94002; 94640; 94660

== ENCOUNTER 2019-07-16 09:22 | Observation (INO) | payer OTHER ==
--- NOTE | 2019-07-16 10:08 | ED ---
General Adult HPI - General Chief complaint: Shortness of Breath Stated complaint: sob post op heart Sx Time Seen by Provider: 07/16/19 09:35 Source: patient, family, RN notes reviewed Mode of arrival: ambulatory Limitations: no limitations - History of Present Illness Initial comments: This is a 53-year-old female presents emergency Department with a past medical history significant for bypass surgery on June 22. Patient comes in today because she has been expressing shortness of breath quite a few days now. Patient had her Lasix increased over the weekend but that seems to have not helped. Patient states she continues to be short of breath and notices that her swelling in her legs is worse per patient denies any chest pain or palpitations. Patient denies any fever chills. Patient denies any significant cough. She denies any abdominal pain patient denies nausea vomiting. Patient denies headache patient denies numbness weakness patient denies lightheadedness or dizziness. - Related Data Home Medications Medication Instructions Recorded Confirmed Mometasone/Formoterol [Dulera 100 2 puff INHALATION RT-BID 07/26/18 07/16/19 Mcg/5 Mcg Inhaler] Albuterol Nebulized [Ventolin 2.5 mg INHALATION RT-Q4H PRN 03/31/19 07/16/19 Nebulized] Latanoprost/Pf [Latanoprost 0.005% 1 drop BOTH EYES HS 06/12/19 07/16/19 Eye Drop] HYDROcodone/APAP 5-325MG [[place] 1 tab PO Q4HR PRN 07/16/19 07/16/19 5-325] Insulin Glargine,Hum.rec.anlog See Protocol SQ AC-TID 07/16/19 07/16/19 [Basaglar Kwikpen U-100] Insulin Lispro [Admelog Solostar] 50 unit SQ HS 07/16/19 07/16/19 Promethazine [Phenergan] 12.5 mg PO Q6HR PRN 07/16/19 07/16/19 Sennosides-Docusate Sodium 2 tab PO HS PRN 07/16/19 07/16/19 [Senokot-S] Previous Rx's Medication Instructions Recorded Albuterol Inhaler [Ventolin Hfa 1 - 2 puff INHALATION RT-Q6H PRN 12/20/18 Inhaler] #1 inhaler Acetaminophen Tab [Tylenol] 1,000 mg PO Q6HR PRN #120 tab 06/29/19 Aspirin 325 mg PO DAILY #30 tab 06/29/19 Atorvastatin [Lipitor] 80 mg PO HS 30 Days #30 tab 06/29/19 Clopidogrel [Plavix] 75 mg PO DAILY #30 tab 06/29/19 Digoxin [Lanoxin] 250 mcg PO DAILY #30 tab 06/29/19 Diltiazem Cd [Cardizem CD] 180 mg PO DAILY #30 cap.er.24h 06/29/19 Furosemide [Lasix] 40 mg PO BID #60 tablet 06/29/19 Loratadine [Claritin] 10 mg PO DAILY #30 tab 06/29/19 Losartan [Cozaar] 25 mg PO Q24H #30 tab 06/29/19 Metoprolol Tartrate [Lopressor] 75 mg PO BID #120 tab 06/29/19 Montelukast Sodium [Singulair] 10 mg PO HS #30 tab 06/29/19 Multivitamins, Thera [Multivitamin 1 tab PO DAILY #30 tab 06/29/19 (formulary)] Nystatin 100,000 Unit/ml Susp 500,000 unit PO QID #30 cup 06/29/19 [Mycostatin Oral Susp] Pantoprazole [Protonix] 40 mg PO AC-BRKFST #30 tablet. 06/29/19 Allergies Allergy/AdvReac Type Severity Reaction Status Date / Time mold AdvReac Itching Verified 07/16/19 10:30 dust Allergy Mild Itching Uncoded 06/20/19 11:42 Review of Systems ROS Statement: Those systems with pertinent positive or pertinent negative responses have been documented in the HPI. ROS Other: All systems not noted in ROS Statement are negative. Past Medical History Past Medical History: Asthma, Coronary Artery Disease (CAD), Diabetes Mellitus, Eye Disorder, Hyperlipidemia, Hypertension, Sleep Apnea/CPAP/BIPAP Additional Past Medical History / Comment(s): retinopathy,GLAUCOMA, chronic pain, BLOOD CLOT IN ARM 30 YEARS AGO R/T TO PICC LINE MISPLACEMENT, uses CPAP History of Any Multi-Drug Resistant Organisms: None Reported Past Surgical History: Coronary Bypass/CABG, Heart Catheterization Additional Past Surgical History / Comment(s): PICC LINE Past Anesthesia/Blood Transfusion Reactions: No Reported Reaction Additional Past Anesthesia/Blood Transfusion Reaction / Comment(s): no anesthesia Past Psychological History: No Psychological Hx Reported Smoking Status: Never smoker Past Alcohol Use History: None Reported Past Drug Use History: None Reported - Past Family History Father Family Medical History: Cancer Additional Family Medical History / Comment(s): Colon CA Mother Family Medical History: Diabetes Mellitus, Hypertension Brother(s) Family Medical History: Diabetes Mellitus General Exam - General Exam Comments Initial Comments: GENERAL: Patient is well-developed and well-nourished. Patient is nontoxic and well- hydrated and is in mild distress. ENT: Neck is soft and supple. No significant lymphadenopathy is noted. Oropharynx is clear. Moist mucous membranes. Neck has full range of motion without eliciting any pain. EYES: The sclera were anicteric and conjunctiva were pink and moist. Extraocular movements were intact and pupils were equal round and reactive to light. Eyelids were unremarkable. PULMONARY: Unlabored respirations. Patient has diminished breath sounds on the left base CARDIOVASCULAR: There is a regular rate and rhythm without any murmurs gallops or rubs. ABDOMEN: Soft and nontender with normal bowel sounds. No palpable organomegaly was noted. There is no palpable pulsatile mass. SKIN: Skin is clear with no lesions or rashes and otherwise unremarkable. NEUROLOGIC: Patient is alert and oriented x3. Cranial nerves II through XII are grossly intact. Motor and sensory are also intact. Normal speech, volume and content. Symmetrical smile. MUSCULOSKELETAL: Normal extremities with adequate strength and full range of motion. 2+ edema bilaterally LYMPHATICS: No significant lymphadenopathy is noted PSYCHIATRIC: Normal psychiatric evaluation. Limitations: no limitations Course Vital Signs 07/16/19 07/16/19 07/16/19 09:35 10:30 11:00 Temperature 98.3 F Pulse Rate 89 84 80 Respiratory 18 20 20 Rate Blood Pressure 114/68 126/70 108/86 O2 Sat by Pulse 98 98 98 Oximetry 07/16/19 11:34 Temperature Pulse Rate 78 Respiratory 18 Rate Blood Pressure 124/74 O2 Sat by Pulse 100 Oximetry Medical Decision Making - Medical Decision Making EKG shows normal sinus rhythm at 85 bpm DE interval is 148 QRSs 80 QT interval 338 QTC is 42 per patient's EKG shows no ST segment elevation or depression. Chest x-ray shows a large left-sided pleural effusion. I spoke with Nicole the nurse practitioner for Dr. Montanez and she wanted the jett ent admitted. I spoke with some physicians agreed to admit the patient admitted the patient I consult to Dr. Montanez and Dr. Delvalle the directory operator. I wrote admitting orders. - Lab Data Result diagrams: 07/16/19 10:05 07/16/19 10:05 Lab Results 07/16/19 07/16/19 07/16/19 Range/Units 10:05 10:05 10:05 WBC 4.3 (3.8-10.6) k/uL RBC 3.99 (3.80-5.40) m/uL Hgb 10.0 L (11.4-16.0) gm/dL Hct 32.6 L (34.0-46.0) % MCV 81.6 (80.0-100.0) fL MCH 25.1 (25.0-35.0) pg MCHC 30.7 L (31.0-37.0) g/dL RDW 13.3 (11.5-15.5) % Plt Count 449 (150-450) k/uL Neutrophils % 49 % Lymphocytes % 29 % Monocytes % 5 % Eosinophils % 13 % Basophils % 1 % Neutrophils # 2.1 (1.3-7.7) k/uL Lymphocytes # 1.2 (1.0-4.8) k/uL Monocytes # 0.2 (0-1.0) k/uL Eosinophils # 0.6 (0-0.7) k/uL Basophils # 0.1 (0-0.2) k/uL Hypochromasia Marked Sodium 140 (137-145) mmol/L Potassium 3.9 (3.5-5.1) mmol/L Chloride 101 (98-107) mmol/L Carbon Dioxide 30 (22-30) mmol/L Anion Gap 9 mmol/L BUN 6 L (7-17) mg/dL Creatinine 0.54 (0.52-1.04) mg/dL Est GFR (CKD-EPI)AfAm >90 (>60 ml/min/1.73 sqM) Est GFR (CKD-EPI)NonAf >90 (>60 ml/min/1.73 sqM) Glucose 212 H (74-99) mg/dL Calcium 8.8 (8.4-10.2) mg/dL Magnesium 1.5 L (1.6-2.3) mg/dL Total Bilirubin 0.5 (0.2-1.3) mg/dL AST 18 (14-36) U/L ALT 18 (9-52) U/L Alkaline Phosphatase 144 H (38-126) U/L Troponin I (0.000-0.034) ng/mL NT-Pro-B Natriuret Pep 424 pg/mL Total Protein 7.1 (6.3-8.2) g/dL Albumin 3.3 L (3.5-5.0) g/dL 07/16/19 Range/Units 10:05 WBC (3.8-10.6) k/uL RBC (3.80-5.40) m/uL Hgb (11.4-16.0) gm/dL Hct (34.0-46.0) % MCV (80.0-100.0) fL MCH (25.0-35.0) pg MCHC (31.0-37.0) g/dL RDW (11.5-15.5) % Plt Count (150-450) k/uL Neutrophils % % Lymphocytes % % Monocytes % % Eosinophils % % Basophils % % Neutrophils # (1.3-7.7) k/uL Lymphocytes # (1.0-4.8) k/uL Monocytes # (0-1.0) k/uL Eosinophils # (0-0.7) k/uL Basophils # (0-0.2) k/uL Hypochromasia Sodium (137-145) mmol/L Potassium (3.5-5.1) mmol/L Chloride (98-107) mmol/L Carbon Dioxide (22-30) mmol/L Anion Gap mmol/L BUN (7-17) mg/dL Creatinine (0.52-1.04) mg/dL Est GFR (CKD-EPI)AfAm (>60 ml/min/1.73 sqM) Est GFR (CKD-EPI)NonAf (>60 ml/min/1.73 sqM) Glucose (74-99) mg/dL Calcium (8.4-10.2) mg/dL Magnesium (1.6-2.3) mg/dL Total Bilirubin (0.2-1.3) mg/dL AST (14-36) U/L ALT (9-52) U/L Alkaline Phosphatase (38-126) U/L Troponin I 0.023 (0.000-0.034) ng/mL NT-Pro-B Natriuret Pep pg/mL Total Protein (6.3-8.2) g/dL Albumin (3.5-5.0) g/dL Disposition Clinical Impression: Dyspnea, Pleural effusion Disposition: ADMITTED IP TO THIS HOSP Referrals: None,Stated [Primary Care Provider] - 1-2 days Time of Disposition: 11:42
[2019-07-16 10:19] LABS: Basophils # (A) 0.1 k/uL (0-0.2); Basophils % (A) 1 %; Eosinophils # (A) 0.6 k/uL (0-0.7); Eosinophils % (A) 13 %; HCT 32.6 % (34.0-46.0); Hypochromasia Marked; Lymphocytes # (A) 1.2 k/uL (1.0-4.8); Lymphocytes % (A) 29 %; MCH 25.1 pg (25.0-35.0); MCHC 30.7 g/dL (31.0-37.0); MCV 81.6 fL (80.0-100.0); Mean Platelet Volume 5.7; Monocytes # (A) 0.2 k/uL (0-1.0); Monocytes % (A) 5 %; Neutrophils # (A) 2.1 k/uL (1.3-7.7); Neutrophils % (A) 49 %; Platelet Count 449 k/uL (150-450); RBC 3.99 m/uL (3.80-5.40); RDW 13.3 % (11.5-15.5); WBC 4.3 k/uL (3.8-10.6)
[2019-07-16 10:25] LABS: ALT 18 U/L (9-52); AST 18 U/L (14-36); African American GFR (CKD) >90 (>60 ml/min/1.73 sqM); Albumin 3.3 g/dL (3.5-5.0); Alkaline Phosphatase 144 U/L (38-126); Anion Gap 9 mmol/L; Blood Urea Nitrogen 6 mg/dL (7-17); Calcium 8.8 mg/dL (8.4-10.2); Carbon Dioxide 30 mmol/L (22-30); Chloride 101 mmol/L (98-107); Glucose 212 mg/dL (74-99); Magnesium 1.5 mg/dL (1.6-2.3); Sodium 140 mmol/L (137-145); Total Bilirubin 0.5 mg/dL (0.2-1.3); Total Protein 7.1 g/dL (6.3-8.2)
[2019-07-16 10:44] LABS: Potassium 3.9 mmol/L (3.5-5.1)
--- NOTE | 2019-07-16 10:58 | XR ---
EXAMINATION TYPE: XR chest 2V DATE OF EXAM: 07/16/2019 COMPARISON: 06/29/2019 TECHNIQUE: PA and lateral views submitted. HISTORY: Post cardiac surgery FINDINGS: Patient is post median sternotomy and atrial appendage clipping placement. There are overlying cardia c leads. There is no pneumothorax. Bibasilar increased density persists, central vascularity appears prominently. Heart size is obscured but thought to be enlarged. Bilateral pleural effusions greater o n the left. Hypertrophic and degenerative change of the spine. IMPRESSION: 1. Bilateral consolidation and pleural effusion greater on the left stable. Mild central venous conge stion not excluded.
[2019-07-16] MEDS ORDERED: FUROSEMIDE 10 MG/ML 4 ML VIAL IV STA (11:14)
[2019-07-16 12:04] LABS: INR 0.9 (<1.2); Partial Thromboplastin Time 23.7 sec (22.0-30.0); Prothrombin Time 10.2 sec (9.0-12.0)
[2019-07-16] MEDS ORDERED: ACETAMINOPHEN TAB 500 MG TAB PO PRN (12:08)
[2019-07-16] MEDS ORDERED: SENNOSIDES-DOCUSATE SODIUM 1 EACH TAB PO PRN (12:08)
[2019-07-16] MEDS ORDERED: LOSARTAN 25 MG TAB PO SCH (12:15)
[2019-07-16 12:50] LABS: Glucose,Whole Blood 155 mg/dL (75-99)
[2019-07-16] MEDS: ALBUTEROL NEBULIZED 2.5 MG/3 ML INHALATION PRN ×3 (13:00→19:52)
--- NOTE | 2019-07-16 13:21 | P.GSCN ---
History of Present Illness Consult date: 07/16/19 Reason for Consult: Shortness of breath, known to our service Requesting physician: Moreno Gallagher History of present illness: This is a 53-year-old morbidly obese female patient who follows on an outpatient basis with Dr. Cher Kimble and Dr. UZIEL Delvalle. She has a previous medical history of coronary artery disease, hypertension, hyperlipidemia, uncontrolled insulin-dependent diabetes mellitus with hyperglycemia, asthma, and obstructive sleep apnea with home CPAP use. She presented to [facility] emergency room at the end of March 2019 with complaints of significant shortness of breath and mild chest pain along with lower extremity edema. She was admitted for acute exacerbation of asthma, EKG and troponins were benign, and she was recommended to follow up outpatient for stress testing. Her outpatient stress test was abnormal and she was recommended to undergo heart catheterization which demonstrated severe triple-vessel coronary artery disease. Consultation was placed Dr. Montanez from cardiothoracic surgery. She was recommended to undergo elective coronary artery bypass graft surgery. On 06/22/2019 she underwent off- pump coronary artery bypass graft surgery 4 with sequential left internal mammary artery to the diagonal and left anterior descending artery, left radial artery to the obtuse marginal artery, reverse saphenous vein graft to the posterior descending artery, endovascular harvest of the left radial artery and left greater saphenous vein, and clipping of the left atrial appendage with a 35 mm AtriCure clip. Postoperatively she did experience acute blood loss anemia requiring no transfusion, and paroxysmal atrial fibrillation with conversion back to normal sinus rhythm, as well as intractable vomiting which was eventually controlled. She was discharged home with [facility] care on postoperative day #7. She was seen in the cardiothoracic surgery office on July 02, she did have complaints at that time of some continuing shortness of breath and decreased exercise tolerance which is normal postoperative course, her lungs sounds were diminished at that time, and her pulse oxygenation was in the mid 90s on room air. She was seen by Dr. Delvalle from pulmonology on July 09, she was placed on oxygen at that time with a follow-up appointment made for today, July 16. We did follow up with this patient 3 days later on July 12 via phone, patient reported at that time she was feeling much better with the oxygen. On July 13 the patient called our service in the late afternoon and stated she was still short of breath with decreased exercise tolerance, her oxygen saturation was 94-96% on 2 L, and her Lasix dose was increased. Again the patient was called on July 14 and , both times reporting adequate oxygen saturation, continuing to feel tired, continuing shortness of breath but slightly better each time. She was counseled that she if she felt worse she was to call us and we would bring her in for a chest x-ray. This morning her da riley did call to report she was bringing the patient in to [facility] emergency room for evaluation and treatment as she felt her mother was not getting any better. The patient did have a chest x-ray completed which demonstrated left pleural effusion and central vascular congestion, stable from discharge. The patient was admitted for observation with consultation to Dr. Montanez from cardiothoracic surgery and Dr. UZIEL Delvalle from pulmonology for recommendations regarding pleural effusion. Review of Systems Review of systems was completed and was negative except as noted - Constitutional Reports fatigue - Cardiovascular Reports decreased exercise tolerance, Reports dyspnea on exertion, Reports edema, Reports leg edema, Reports shortness of breath Past Medical History Past Medical History: Asthma, Coronary Artery Disease (CAD), Diabetes Mellitus, Eye Disorder, Hyperlipidemia, Hypertension, Sleep Apnea/CPAP/BIPAP Additional Past Medical History / Comment(s): retinopathy,GLAUCOMA, chronic pain, BLOOD CLOT IN ARM 30 YEARS AGO R/T TO PICC LINE MISPLACEMENT, uses CPAP History of Any Multi-Drug Resistant Organisms: None Reported Past Surgical History: Coronary Bypass/CABG, Heart Catheterization Additional Past Surgical History / Comment(s): PICC LINE; elective off-pump four-vessel coronary artery bypass graft surgery with left atrial appendage ligation on 06/22/2019 Past Anesthesia/Blood Transfusion Reactions: No Reported Reaction Additional Past Anesthesia/Blood Transfusion Reaction / Comm: no anesthesia Past Psychological History: No Psychological Hx Reported Smoking Status: Never smoker Past Alcohol Use History: None Reported Past Drug Use History: None Reported - Past Family History Father Family Medical History: Cancer Additional Family Medical History / Comment(s): Colon CA Mother Family Medical History: Diabetes Mellitus, Hypertension Brother(s) Family Medical History: Diabetes Mellitus Medications and Allergies Home Medications Medication Instructions Recorded Confirmed Type Mometasone/Formoterol [Dulera 100 2 puff INHALATION RT-BID 07/26/18 07/16/19 History Mcg/5 Mcg Inhaler] Albuterol Inhaler [Ventolin Hfa 1 - 2 puff INHALATION RT-Q6H PRN 12/20/18 07/16/19 Rx Inhaler] #1 inhaler Albuterol Nebulized [Ventolin 2.5 mg INHALATION RT-Q4H PRN 03/31/19 07/16/19 History Nebulized] Latanoprost/Pf [Latanoprost 0.005% 1 drop BOTH EYES HS 06/12/19 07/16/19 History Eye Drop] Acetaminophen Tab [Tylenol] 1,000 mg PO Q6HR PRN #120 tab 06/29/19 07/16/19 Rx Aspirin 325 mg PO DAILY #30 tab 06/29/19 07/16/19 Rx Atorvastatin [Lipitor] 80 mg PO HS 30 Days #30 tab 06/29/19 07/16/19 Rx Clopidogrel [Plavix] 75 mg PO DAILY #30 tab 06/29/19 07/16/19 Rx Digoxin [Lanoxin] 250 mcg PO DAILY #30 tab 06/29/19 07/16/19 Rx Diltiazem Cd [Cardizem CD] 180 mg PO DAILY #30 cap.er.24h 06/29/19 07/16/19 Rx Furosemide [Lasix] 40 mg PO BID #60 tablet 06/29/19 07/16/19 Rx Loratadine [Claritin] 10 mg PO DAILY #30 tab 06/29/19 07/16/19 Rx Losartan [Cozaar] 25 mg PO Q24H #30 tab 06/29/19 07/16/19 Rx Metoprolol Tartrate [Lopressor] 75 mg PO BID #120 tab 06/29/19 07/16/19 Rx Montelukast Sodium [Singulair] 10 mg PO HS #30 tab 06/29/19 07/16/19 Rx Multivitamins, Thera [Multivitamin 1 tab PO DAILY #30 tab 06/29/19 07/16/19 Rx (formulary)] Nystatin 100,000 Unit/ml Susp 500,000 unit PO QID #30 cup 06/29/19 07/16/19 Rx [Mycostatin Oral Susp] Pantoprazole [Protonix] 40 mg PO AC-BRKFST #30 tablet.dr 06/29/19 07/16/19 Rx HYDROcodone/APAP 5-325MG [[place] 1 tab PO Q4HR PRN 07/16/19 07/16/19 History 5-325] Insulin Glargine,Hum.rec.anlog 50 unit SQ HS 07/16/19 07/16/19 History [Basaglar Kwikpen U-100] Insulin Lispro [Admelog Solostar] See Protocol SQ AC-TID 07/16/19 07/16/19 History Promethazine [Phenergan] 12.5 mg PO Q6HR PRN 07/16/19 07/16/19 History Sennosides-Docusate Sodium 2 tab PO HS PRN 07/16/19 07/16/19 History [Senokot-S] Allergies Allergy/AdvReac Type Severity Reaction Status Date / Time mold AdvReac Itching Verified 07/16/19 10:30 dust Allergy Mild Itching Uncoded 06/20/19 11:42 Surgical - Exam Vital Signs Temp Pulse Resp BP Pulse Ox 98.3 F 89 18 114/68 98 07/16/19 09:35 07/16/19 09:35 07/16/19 09:35 07/16/19 09:35 07/16/19 09:35 - General well developed, well nourished, no distress, no pain, obese - Eyes PERRL, normal ocular movement - ENT no hearing loss - Neck no masses, no bruits, trachea midline - Respiratory Lungs sounds diminished bilaterally, left greater than right. Respirations even, nonlabored. Currently on 2 L nasal cannula with oxygen saturation 99%. N o clubbing or cyanosis present. - Cardiovascular S1, S2 present. Regular rate and rhythm, sinus rhythm on telemetry. Sternum stable. Palpable peripheral pulses bilaterally. Generalized edema present, with 2-3+ edema to bilateral lower extremities. Patient has been using heart hugger appropriately. No antiembolism stockings were present upon examination. - Abdomen Abdomen: soft, non tender, bowel sounds - Genitourinary Deferred - Rectum Deferred - Integumentary Skin is warm and dry with evidence of good perfusion. Anterior chest incision well approximated and covered with dry intact dressing. - Neurologic normal coordination, normal sensation - Musculoskeletal Slow gait, patient needs to stop for frequent breaks but she is able to ambulate without assistive devices normal gait, normal posture - Psychiatric oriented to time, oriented to person, oriented to place, speech is normal, memory intact Results - Labs 07/16/19 10:05 07/16/19 10:05 Abnormal Lab Results - Last 24 Hours (Table) 07/16/19 07/16/19 Range/Units 10:05 10:05 Hgb 10.0 L (11.4-16.0) gm/dL Hct 32.6 L (34.0-46.0) % MCHC 30.7 L (31.0-37.0) g/dL BUN 6 L (7-17) mg/dL Glucose 212 H (74-99) mg/dL Magnesium 1.5 L (1.6-2.3) mg/dL Alkaline Phosphatase 144 H (38-126) U/L Albumin 3.3 L (3.5-5.0) g/dL Diabetes panel 07/16/19 Range/Units 10:05 Sodium 140 (137-145) mmol/L Potassium 3.9 (3.5-5.1) mmol/L Chloride 101 (98-107) mmol/L Carbon Dioxide 30 (22-30) mmol/L BUN 6 L (7-17) mg/dL Creatinine 0.54 (0.52-1.04) mg/dL Glucose 212 H (74-99) mg/dL Calcium 8.8 (8.4-10.2) mg/dL AST 18 (14-36) U/L ALT 18 (9-52) U/L Alkaline Phosphatase 144 H (38-126) U/L Total Protein 7.1 (6.3-8.2) g/dL Albumin 3.3 L (3.5-5.0) g/dL Calcium panel 07/16/19 Range/Units 10:05 Calcium 8.8 (8.4-10.2) mg/dL Albumin 3.3 L (3.5-5.0) g/dL Pituitary panel 07/16/19 Range/Units 10:05 Sodium 140 (137-145) mmol/L Potassium 3.9 (3.5-5.1) mmol/L Chloride 101 (98-107) mmol/L Carbon Dioxide 30 (22-30) mmol/L BUN 6 L (7-17) mg/dL Creatinine 0.54 (0.52-1.04) mg/dL Glucose 212 H (74-99) mg/dL Calcium 8.8 (8.4-10.2) mg/dL Adrenal panel 07/16/19 Range/Units 10:05 Sodium 140 (137-145) mmol/L Potassium 3.9 (3.5-5.1) mmol/L Chloride 101 (98-107) mmol/L Carbon Dioxide 30 (22-30) mmol/L BUN 6 L (7-17) mg/dL Creatinine 0.54 (0.52-1.04) mg/dL Glucose 212 H (74-99) mg/dL Calcium 8.8 (8.4-10.2) mg/dL Total Bilirubin 0.5 (0.2-1.3) mg/dL AST 18 (14-36) U/L ALT 18 (9-52) U/L Alkaline Phosphatase 144 H (38-126) U/L Total Protein 7.1 (6.3-8.2) g/dL Albumin 3.3 L (3.5-5.0) g/dL - Imaging Chest x-ray: report reviewed, image reviewed Assessment and Plan Assessment: 1. Shortness of breath, left-sided pleural effusion 2. Coronary artery disease, status post four-vessel off-pump CABG 06/22/2019 3. Hypertension 4. Hyperlipidemia 5. Uncontrolled insulin dependent diabetes with hyperglycemia, most recent hemoglobin A1c 12.4% 6. Asthma 7. Obstructive sleep apnea with home CPAP use 8. Morbid obesity 9. Postoperative paroxysmal atrial fibrillation, status post left atrial appendage ligation, currently in normal sinus rhythm 10. Postoperative acute blood loss anemia, currently stable Plan: The patient was seen and examined in the emergency room with family at the bedside. Chart/diagnostics were reviewed. Case was discussed in detail with Dr. Montanez in the last several days, he will be updated again today, and Dr. Carvajal will see the patient this afternoon. From cardiothoracic surgery standpoint we will order chest ultrasound to assess fluid pocket in the lungs, patient likely needs thoracentesis, however this can be completed on an outpatient basis. Patient needs to be off Plavix for 5 days prior to invasive procedure. We recommend continuing postoperative care with encouraging ambulation, we will consult physical and occupational therapy to see patient. She should be encouraged to cough and deep breathe and use incentive spirometry. Home medications have been reordered, Lasix increased. She must shower daily, continue to use heart hugger. Antiembolism stockings should be placed back on patient, or Slade wraps may be applied if it is more comfortable to the patient. She should elevate her lower extremities when sitting. Her blood sugars should be tightly controlled. No blood transfusions at this time. More re commendations to follow. Thank you Dr. Gallagher for this consult. We will continue to see the patient while in the hospital, and we'll continue to follow with her outpatient. Time with Patient: Greater than 30
[2019-07-16] MEDS: INSULIN ASPART (NovoLOG) 100 UNIT/ML VIAL SQ SCH ×3 (13:22→21:25)
[2019-07-16 14:18] VITALS: BMI 58.5
--- NOTE | 2019-07-16 14:26 | US ---
EXAMINATION TYPE: US chest DATE OF EXAM: 07/16/2019 COMPARISON: NONE CLINICAL HISTORY: joshua for thoracentesis. Pleural effusion, SOB, large body habitus TECHNIQUE: Targeted ultrasound of the posterior lower bilateral EXAM MEASUREMENTS: Right Pleural Effusion pocket size: 0 cm Left Pleural Effusion pocket size: 5.2 cm Left skin surface to fluid distance: 7.7 cm Right side NOT marked Left side marked for possible thoracentesis outside the dept. Pulmonologists are able to review the images in the patient?s EMR. IMPRESSIONS: Left pleural effusion
--- NOTE | 2019-07-16 15:03 | P.HPIM ---
History of Present Illness H&P Date: 07/16/19 The patient is a 53 yo F with a PMH of type 2 diabetes mellitus, coronary artery disease status post CABG 06/22/19, and COPD who presented to the ED with complaints of shortness of breath and LE swelling. The patient reports that over the past 3 days, she has had worsening SOB and has also been "retaining water". She notes that her legs have been swelling up gradually since she had her CABG surgery on 06/22. She denied chest pain, orthopnea or PND. Also denied wheezing, cough, fever, or chills. She notes compliance with all her medications including her lasix. She underwent an extensive evaluation in the ED w/ CXR showing bilateral consolidation and pleural effusion greater on the L w/ mild central venous congestion. EKG revealed NSR @ 85 bpm w/ poor baseline. Laboratory evaluation revealed a troponin of 0.023, BNP of 424, WBC count of 4.3, hemoglobin 10, platelets 449, BUN 6, creatinine 0.54. Review of Systems Pertinent positives and negatives as discussed in HPI, a complete review of systems was performed and all other systems are negative. Past Medical History Past Medical History: Asthma, Coronary Artery Disease (CAD), Diabetes Mellitus, Eye Disorder, Hyperlipidemia, Hypertension, Sleep Apnea/CPAP/BIPAP Additional Past Medical History / Comment(s): retinopathy,GLAUCOMA, chronic pa in, BLOOD CLOT IN ARM 30 YEARS AGO R/T TO PICC LINE MISPLACEMENT, uses CPAP History of Any Multi-Drug Resistant Organisms: None Reported Past Surgical History: Coronary Bypass/CABG, Heart Catheterization Additional Past Surgical History / Comment(s): PICC LINE; elective off-pump four-vessel coronary artery bypass graft surgery with left atrial appendage ligation on 06/22/2019 Past Anesthesia/Blood Transfusion Reactions: No Reported Reaction Additional Past Anesthesia/Blood Transfusion Reaction / Comment(s): no anesthesia Past Psychological History: No Psychological Hx Reported Smoking Status: Never smoker Past Alcohol Use History: None Reported Past Drug Use History: None Reported - Past Family History Father Family Medical History: Cancer Additional Family Medical History / Comment(s): Colon CA Mother Family Medical History: Diabetes Mellitus, Hypertension Brother(s) Family Medical History: Diabetes Mellitus Medications and Allergies Home Medications Medication Instructions Recorded Confirmed Type Mometasone/Formoterol [Dulera 100 2 puff INHALATION RT-BID 07/26/18 07/16/19 History Mcg/5 Mcg Inhaler] Albuterol Inhaler [Ventolin Hfa 1 - 2 puff INHALATION RT-Q6H PRN 12/20/18 07/16/19 Rx Inhaler] #1 inhaler Albuterol Nebulized [Ventolin 2.5 mg INHALATION RT-Q4H PRN 03/31/19 07/16/19 History Nebulized] Latanoprost/Pf [Latanoprost 0.005% 1 drop BOTH EYES HS 06/12/19 07/16/19 History Eye Drop] Acetaminophen Tab [Tylenol] 1,000 mg PO Q6HR PRN #120 tab 06/29/19 07/16/19 Rx Aspirin 325 mg PO DAILY #30 tab 06/29/19 07/16/19 Rx Atorvastatin [Lipitor] 80 mg PO HS 30 Days #30 tab 06/29/19 07/16/19 Rx Clopidogrel [Plavix] 75 mg PO DAILY #30 tab 06/29/19 07/16/19 Rx Digoxin [Lanoxin] 250 mcg PO DAILY #30 tab 06/29/19 07/16/19 Rx Diltiazem Cd [Cardizem CD] 180 mg PO DAILY #30 cap.er.24h 06/29/19 07/16/19 Rx Furosemide [Lasix] 40 mg PO BID #60 tablet 06/29/19 07/16/19 Rx Loratadine [Claritin] 10 mg PO DAILY #30 tab 06/29/19 07/16/19 Rx Losartan [Cozaar] 25 mg PO Q24H #30 tab 06/29/19 07/16/19 Rx Metoprolol Tartrate [Lopressor] 75 mg PO BID #120 tab 06/29/19 07/16/19 Rx Montelukast Sodium [Singulair] 10 mg PO HS #30 tab 06/29/19 07/16/19 Rx Multivitamins, Thera [Multivitamin 1 tab PO DAILY #30 tab 06/29/19 07/16/19 Rx (formulary)] Nystatin 100,000 Unit/ml Susp 500,000 unit PO QID #30 cup 06/29/19 07/16/19 Rx [Mycostatin Oral Susp] Pantoprazole [Protonix] 40 mg PO AC-BRKFST #30 tablet.dr 06/29/19 07/16/19 Rx HYDROcodone/APAP 5-325MG [[place] 1 tab PO Q4HR PRN 07/16/19 07/16/19 History 5-325] Insulin Glargine,Hum.rec.anlog 50 unit SQ HS 07/16/19 07/16/19 History [Basaglar Kwikpen U-100] Insulin Lispro [Admelog Solostar] See Protocol SQ AC-TID 07/16/19 07/16/19 History Promethazine [Phenergan] 12.5 mg PO Q6HR PRN 07/16/19 07/16/19 History Sennosides-Docusate Sodium 2 tab PO HS PRN 07/16/19 07/16/19 History [Senokot-S] Allergies Allergy/AdvReac Type Severity Reaction Status Date / Time mold AdvReac Itching Verified 07/16/19 10:30 dust Allergy Mild Itching Uncoded 06/20/19 11:42 Physical Exam Vitals: Vital Signs Temp Pulse Resp BP Pulse Ox 07/16/19 13:15 80 07/16/19 13:01 80 07/16/19 12:30 98.0 F 74 18 121/75 99 07/16/19 11:34 78 18 124/74 100 07/16/19 11:00 80 20 108/86 98 07/16/19 10:30 84 20 126/70 98 07/16/19 09:35 98.3 F 89 18 114/68 98 Intake and Output 07/15/19 07/16/19 07/16/19 22:59 06:59 14:59 Other: Weight 169.5 kg General: non toxic, no distress, appears at stated age, morbidly obese Derm: no unusual rashes/lesions no unusual ecchymoses, warm, dry Head: atraumatic, normocephalic, symmetric Eyes: EOMI, no lid lag, anicteric sclera, pupils equal round reactive to light ENT: Nose and ears atraumatic, no thrush, no pharyngeal erythema Neck: No thyromegaly, no cervical lymphadenopathy, trachea midline, supple Mouth: no lip lesion, mucus membranes moist Cardiovascular: S1S2 reg, no murmur, positive posterior tibial pulse bilateral, 2+ arturo LE pitting edema, capillary refill less than 2 seconds Lungs: Poor air entry bilaterally with diminished left basilar sounds Abdominal: soft, nontender to palpation, no guarding, no appreciable organomegaly, normal bowel sounds Ext: no gross muscle atrophy, no contractures, Neuro: CN II-XI grossly intact, light touch intact all 4 extremities, finger to nose within normal limits, Psych: Alert, oriented, appropriate affect Results CBC & Chem 7: 07/16/19 10:05 07/16/19 10:05 Labs: Abnormal Lab Results - Last 24 Hours (Table) 07/16/19 07/16/19 07/16/19 Range/Units 10:05 10:05 12:48 Hgb 10.0 L (11.4-16.0) gm/dL Hct 32.6 L (34.0-46.0) % MCHC 30.7 L (31.0-37.0) g/dL BUN 6 L (7-17) mg/dL Glucose 212 H (74-99) mg/dL POC Glucose (mg/dL) 155 H (75-99) mg/dL Magnesium 1.5 L (1.6-2.3) mg/dL Alkaline Phosphatase 144 H (38-126) U/L Albumin 3.3 L (3.5-5.0) g/dL Assessment and Plan Plan: Shortness of breath, likely multifactorial w/ L sided pleural effusion and mild acute CHF exacerbation -Cardio-thoracic surgery consulted for likely thoracentesis -Intake and output -Fluid restriction -Start Lasix IV push -Monitor electrolytes Chronic conditions: CAD, Type 2 DM, COPD -Continue with home meds DVT prophylaxis -Heparin The patient is admitted with an anticipated less than 2 midnight stay for evaluation of SOB CODE STATUS: Full Code Discussed with: Patient Anticipated discharge date: 1-[address]: Home A total of 35 minutes was spent on the care of this complex patient more than 50% of the time was spent in counseling and care coordination.
--- NOTE | 2019-07-16 15:21 | FL ---
EXAMINATION TYPE: FL sniff test without CXR DATE OF EXAM: 07/16/2019 COMPARISON: NONE HISTORY: Shortness of breath TECHNIQUE: Fluoroscopy. FINDINGS: Fluoroscopic guidance was provided during procedure 14 seconds provided. No images submitt ed. There is normal movement of the right hemidiaphragm. There is absence of movement of the left hemidiaphragm. There is a left lower lobe consolidation and pleural effusion. IMPRESSION: 1. Left lower lobe consolidation and pleural effusion with absence of movement of the left hemidiaphr agm.
[2019-07-16] MEDS ORDERED: FUROSEMIDE 40 MG TAB PO SCH (16:00)
[2019-07-16 16:59] LABS: Glucose,Whole Blood 220 mg/dL (75-99)
[2019-07-16] MEDS: FUROSEMIDE 10 MG/ML 10 ML VIAL IV SCH ×2 (17:25→22:59)
[2019-07-16] MEDS: MAGNESIUM SULFATE-D5W PMX 1 GM in DEXTROSE/WATER 1 100ML.BAG IVPB SCH ×2 (17:27→19:06)
[2019-07-16] MEDS: BUDESONIDE 0.5 MG/2 ML NEBU INHALATION SCH (19:52)
[2019-07-16] MEDS ORDERED: SYMBICORT 80-4.5 MCG INHALER INHALATION SCH (20:00)
[2019-07-16] MEDS: METOPROLOL TARTRATE 25 MG TAB PO SCH (20:28)
[2019-07-16] MEDS: ATORVASTATIN 80 MG TAB PO SCH (20:28)
[2019-07-16] MEDS: MONTELUKAST 10 MG TAB PO SCH (20:28)
[2019-07-16] MEDS: LATANOPROST 0.005% OPHTH DROPS 2.5 ML BTL BOTH EYES SCH (20:28)
[2019-07-16 20:46] LABS: Glucose,Whole Blood 178 mg/dL (75-99)
[2019-07-16] MEDS: INSULIN DETEMIR (LEVEMIR) 100 UNIT/ML SYR SQ SCH (21:29)
[2019-07-16] MEDS ORDERED: HYDROcodone/APAP 5-325MG 1 EACH TAB PO PRN (21:31)
--- NOTE | 2019-07-16 22:33 | CONS ---
CONSULTATION CHIEF COMPLAINT: Shortness of breath. Jameson is a 53-year-old lady with history of coronary artery disease, status post CABG, insulin-requiring diabetes, hypertension, dyslipidemia and COPD who underwent bypass surgery at the beginning of the month and was discharged home very recently. The patient comes in complaining of bilateral leg edema and shortness of breath, mild to moderate intensity, and had been progressively getting worse. She has known coronary artery disease with HERNDON to LAD and diagonal, free radial graft to OM branch, and an SVG to PDA. Bypass surgery was done on 06/22/2019 and patient was discharged home a week later. The patient comes in with leg edema and pleural effusion. The patient has a large left-sided pleural effusion. PAST MEDICAL HISTORY: Her past medical history is significant for: 1. CAD, status post CABG. 2. Insulin-requiring diabetes. 3. Hypertension. 4. Dyslipidemia. 5. COPD. MEDICATIONS: Medications include: 1. Insulin. 2. Protonix. 3. Singulair. 4. Lopressor 75 b.i.d. 5. Cozaar 25 daily. 6. Claritin. 7. Lasix 40 b.i.d. 8. Cardizem CD 180 daily. 9. Digoxin 0.25. 10.Plavix 75 mg daily. 11.Lipitor 80 daily. 12.Aspirin. 13.Nebulizers. ALLERGIES: There are NO KNOWN DRUG ALLERGIES. FAMILY HISTORY: Negative for premature coronary artery disease. SOCIAL HISTORY: Negative for current smoking, EtOH abuse or drug abuse. REVIEW OF SYSTEMS: HEENT is unremarkable. CARDIAC: As described above. RESPIRATORY: As described above. GI: Negative. GENITOURINARY: Negative. ALLERGY: Negative. IMMUNOLOGY: Negative. SKIN: Negative. MUSCULOSKELETAL: Negative. ENDOCRINE: Negative. DERMATOLOGY: Negative. CONSTITUTIONAL: Negative. ONCOLOGICAL: Negative. Rest of the system review is not relevant. PHYSICAL EXAMINATION: Heart rate is 80 beats per minute. Blood pressure is 120/75, respiratory rate 18. Chest exam reveals diminished air entry at the left base. Heart exam reveals first and second heart sounds. No gallop. No murmur. No rub. Abdomen is soft. Examination of extremities reveals bilateral 1+ pitting edema. LABS: Labs show that the hemoglobin is 10, potassium is 3.9, creatinine is 0.5. BNP is normal at 424. Troponin is normal at 0.023. EKG on this admission shows sinus rhythm with nonspecific ST-T wave changes. ASSESSMENT: 1. Left-sided pleural effusion related to recent bypass surgery. 2. Coronary artery disease, status post coronary artery bypass grafting. 3. Hypertension. 4. Dyslipidemia. PLAN: I will obtain a 2D echo to evaluate her LV function. Continue current medications, including Cozaar, Cardizem CD, Lanoxin and Lipitor. Start the patient on Lasix 40 mg daily. MMODL / IJN: [id number] /
--- NOTE | 2019-07-16 22:43 | CONS ---
CONSULTATION Jameson Condon is a 53-year-old female who presented to the ER at [facility] with increasing shortness of breath of about 3 to 4 days' duration. She had no fever or chills but has had some cough and wheezing. Subsequently she was seen in the ER. A chest x-ray done showed evidence of atelectasis with pleural effusion in the left lower zone. The patient was subsequently admitted for further evaluation and management. She recently underwent off-pump coronary artery bypass on 06/22/2019. Preoperatively she was considered high risk, primarily because of asthma, which was severe, obesity and diabetes mellitus. She had paroxysmal atrial fibrillation during her hospital stay and did not require systemic steroids during her postoperative period. She was seen by me in the outpatient setting and at that time did not require any postoperative steroids as well. She had an IS that was around 1000 in the hospital but went up to 1500 mL as an outpatient. She started to develop edema of her lower extremities and again a drop in her incentive spirometric numbers as well. She is lying in bed at this time. She is mildly to moderately short of breath. She denies any fever or chills. She does not have any chest pain at this time. PAST MEDICAL HISTORY: Past medical history is positive for: 1. Severe asthma. 2. Obesity. 3. Obstructive sleep apnea, for which she is on CPAP. 4. History of coronary artery disease, status post recent coronary artery bypass. 5. History of diabetes mellitus, type 2. FAMILY HISTORY: Positive for severe asthma, diabetes mellitus in her daughter, colon cancer in her father, hypertension in her mother. MEDICATIONS: Medications prior to her admission were: 1. Insulin. 2. Phenergan. 3. Protonix. 4. Nystatin oral solution. 5. Montelukast. 6. Dulera. 7. Lopressor. 8. Cozaar. 9. Claritin. 10.Latanoprost. 11.Hydrocodone with acetaminophen. 12.Lasix. 13.Cardizem CD. 14.Lanoxin. 15.Plavix. 16.Lipitor. 17.Aspirin. 18.Ventolin. 19.Tylenol. PHYSICAL EXAMINATION: She was sitting in bed. She was mildly to moderately short of breath. Her respiratory rate was 18, pulse rate of 74, temperature 98 degrees Fahrenheit, blood pressure 121/75. Oxygen saturation on 2 L by nasal cannula was 99%. HEENT reveals pupils that are equal. There is redundant tissue in the posterior pharynx. Chest reveals decreased breath sounds, more decreased in the left base than the right. Cardiovascular system reveals an S1, S2. No S3, no S4. Abdomen is soft. There is 2+ to 3+ pedal edema. LABS/IMAGING: White count is 4.3, hemoglobin of 10, PT/INR of 0.9. Sodium 140, potassium 3.9, chloride 101, bicarb 30, BUN 6, creatinine 0.54, albumin 3.3. Chest x-ray shows evidence of atelectasis with effusion in the left lower zone. Chest ultrasound shows evidence of pleural effusion. Fluoroscopic evaluation showed evidence of no movement of the left hemidiaphragm with normal movement on the right. IMPRESSION AT THIS TIME: 1. Shortness of breath that is multifactorial, in part due to severe asthma with acute exacerbation. 2. Left-sided pleural effusion due to perioperative state and mild fluid overload. 3. Left diaphragmatic paresis. 4. Fluid overload with congestive heart failure and pedal edema. 5. Diabetes mellitus. 6. Obesity. 7. Obstructive sleep apnea. At this point in time from a pulmonary standpoint, would gently attempt to diurese the patient. Keep her on high-dose inhaled steroids along with leukotriene receptor antagonists. Continue short-acting beta agonists. Hopefully we can avoid IV steroids. Reinstitute incentive spirometry. Consideration for thoracentesis if conservative care does not help her. Keep her blood sugars under control. Depending on how she does, we shall make further changes to her care. She was counseled regarding her condition. She may benefit from cardiac and pulmonary rehab as an outpatient. MMODL / IJN: [id number] /
[2019-07-17 06:05] LABS: Glucose,Whole Blood 183 mg/dL (75-99)
[2019-07-17] MEDS: PANTOPRAZOLE 40 MG TABLET PO SCH (06:25)
[2019-07-17] MEDS: INSULIN ASPART (NovoLOG) 100 UNIT/ML VIAL SQ SCH ×4 (06:26→21:09)
[2019-07-17] MEDS ORDERED: HYDROcodone/APAP 5-325MG 1 EACH TAB PO PRN (06:31)
[2019-07-17 06:44] LABS: African American GFR (CKD) >90 (>60 ml/min/1.73 sqM); Anion Gap 6 mmol/L; Blood Urea Nitrogen 6 mg/dL (7-17); Calcium 8.5 mg/dL (8.4-10.2); Carbon Dioxide 35 mmol/L (22-30); Chloride 101 mmol/L (98-107); Glucose 192 mg/dL (74-99); Magnesium 1.9 mg/dL (1.6-2.3); Potassium 3.6 mmol/L (3.5-5.1); Sodium 142 mmol/L (137-145)
[2019-07-17] MEDS ORDERED: POTASSIUM CHLORIDE ER 20 MEQ TAB.ER PO STA (06:52)
[2019-07-17] MEDS ORDERED: MAGNESIUM SULFATE-D5W PMX 1 GM in DEXTROSE/WATER 1 100ML.BAG IVPB ONE (06:52)
[2019-07-17 06:54] LABS: HCT 32.2 % (34.0-46.0); Hypochromasia Moderate; MCH 25.1 pg (25.0-35.0); Platelet Count 455 k/uL (150-450); RBC 3.98 m/uL (3.80-5.40); RDW 13.4 % (11.5-15.5); WBC 4.8 k/uL (3.8-10.6)
--- NOTE | 2019-07-17 08:16 | P.PN ---
Subjective Progress Note Date: 07/17/19 Principal diagnosis: Shortness of breath, left pleural effusion. Previous medical history of coronary artery disease status post four-vessel off-pump coronary artery bypass graft surgery on 06/22/2019, hypertension, hyperlipidemia, uncontrolled insulin- dependent diabetes mellitus with hyperglycemia, asthma, obstructive sleep apnea with home CPAP use, and paroxysmal atrial fibrillation postoperatively status post left atrial appendage ligation. The patient is currently sitting up in a recliner on the cardiac stepdown unit in no acute distress. Denies pain, does continue to complain of shortness of breath especially with exertion, however she does state she feels a little better this morning and has been up voiding multiple times with increase in Lasix. She does continue to complain of lower extremity edema. No new concerns. Objective - Vital Signs Vital signs: Vital Signs Temp 98.2 F 07/17/19 04:00 Pulse 77 07/17/19 04:00 Resp 20 07/17/19 04:00 BP 129/71 07/17/19 04:00 Pulse Ox 98 07/17/19 04:00 Intake & Output 07/16/19 07/17/19 07/17/19 18:59 06:59 18:59 Intake Total 226 30 Output Total 500 Balance 226 -470 Weight 169.5 kg 161.6 kg Intake: Intake, IV Titration 100 Amount Magnesium Sulfate-D5w Pmx 100 1 gm In Dextrose/Water 1 100ml.bag @ 100 mls/hr IVPB Q1H [facility] Rx#: [id number] Oral 126 30 Output: Urine 500 Other: # Voids 1 # Bowel Movements 1 - Constitutional General appearance: Present: cooperative, morbidly obese, no acute distress - Respiratory Details: Lungs sounds diminished bilaterally, left greater than right. Respirations even, nonlabored. Currently on 2 L nasal cannula with oxygen saturation 98%. Able to achieve 500-1000 mL on her incentive spirometry. Strong cough. - Cardiovascular Details: S1, S2 present. Regular rate and rhythm, sinus rhythm on telemetry. Sternum stable. Palpable peripheral pulses bilaterally. Generalized edema present, with 2-3+ edema to bilateral lower extremities. Patient has been using heart hugger appropriately. Slade wraps present to bilateral lower extremities. - Gastrointestinal Gastrointestinal Comment(s): Abdomen soft, nontender, nondistended. Active bowel sounds present 4 quadrants. Tolerating diet. Positive bowel movement. - Genitourinary Genitourinary Comment(s): Continues to void. - Integumentary Integumentary Comment(s): Skin is warm and dry with evidence of good perfusion. Anterior chest incision well approximated and covered with dry intact dressing. - Neurologic Neurologic: Present: CNII-XII intact - Musculoskeletal Musculoskeletal: Present: gait normal, generalized weakness, strength equal bilaterally - Psychiatric Psychiatric: Present: A&O x's 3, appropriate affect, intact judgment & insight - Allied health notes Allied health notes reviewed: nursing - Labs CBC & Chem 7: 07/17/19 05:32 07/17/19 05:32 Labs: Abnormal Lab Results - Last 24 Hours (Table) 07/16/19 07/16/19 07/16/19 Range/Units 10:05 10:05 12:48 Hgb 10.0 L (11.4-16.0) gm/dL Hct 32.6 L (34.0-46.0) % MCHC 30.7 L (31.0-37.0) g/dL Plt Count (150-450) k/uL Carbon Dioxide (22-30) mmol/L BUN 6 L (7-17) mg/dL Glucose 212 H (74-99) mg/dL POC Glucose (mg/dL) 155 H (75-99) mg/dL Magnesium 1.5 L (1.6-2.3) mg/dL Alkaline Phosphatase 144 H (38-126) U/L Albumin 3.3 L (3.5-5.0) g/dL 07/16/19 07/16/19 07/17/19 Range/Units 16:58 20:44 05:32 Hgb 10.0 L (11.4-16.0) gm/dL Hct 32.2 L (34.0-46.0) % MCHC (31.0-37.0) g/dL Plt Count 455 H (150-450) k/uL Carbon Dioxide (22-30) mmol/L BUN (7-17) mg/dL Glucose (74-99) mg/dL POC Glucose (mg/dL) 220 H 178 H (75-99) mg/dL Magnesium (1.6-2.3) mg/dL Alkaline Phosphatase (38-126) U/L Albumin (3.5-5.0) g/dL 07/17/19 07/17/19 Range/Units 05:32 06:04 Hgb (11.4-16.0) gm/dL Hct (34.0-46.0) % MCHC (31.0-37.0) g/dL Plt Count (150-450) k/uL Carbon Dioxide 35 H (22-30) mmol/L BUN 6 L (7-17) mg/dL Glucose 192 H (74-99) mg/dL POC Glucose (mg/dL) 183 H (75-99) mg/dL Magnesium (1.6-2.3) mg/dL Alkaline Phosphatase (38-126) U/L Albumin (3.5-5.0) g/dL - Imaging and Cardiology Chest x-ray: image reviewed Assessment and Plan Assessment: 1. Shortness of breath, left-sided pleural effusion 2. Lack of movement of left hemidiaphragm, likely from left-sided effusion 3. Coronary artery disease, status post four-vessel off-pump CABG 06/22/2019 4. Hypertension 5. Hyperlipidemia 6. Uncontrolled insulin dependent diabetes with hyperglycemia, most recent hemoglobin A1c 12.4% 7. Asthma 8. Obstructive sleep apnea with home CPAP use 9. Morbid obesity 10. Postoperative paroxysmal atrial fibrillation, status post left atrial appendage ligation, currently in normal sinus rhythm 11. Postoperative acute blood loss anemia, currently stable Plan: 1. Case was discussed in detail with Dr. Montanez. He strongly feels her Plavix should be discontinued, she should be discharged to home, and brought back in at the beginning of next week after allowing for Plavix metabolism to receive thoracentesis of the left chest. 2. Wean O2 as tolerated. Encourage incentive spirometry use 10 times every hour while awake 3. Increase activity, ambulate in hallway minimum 4 times daily. PT/OT consulted. 4. Continue current medication regimen. Continue baby aspirin, Plavix discontinued. 5. Patient needs to shower daily. 6. Continue gentle Slade wraps to bilateral lower extremities until she is able to have her antiembolism stockings back on. Her legs should be elevated when sitting in chair. 7. Blood sugars should be tightly controlled. 8. This plan was discussed with the patient. She does have a follow-up appointment with Dr. Montanez this July 19 at 1:15 PM 9. More recommendations to follow. Time with Patient: Greater than 30
--- NOTE | 2019-07-17 08:47 | XR ---
EXAMINATION TYPE: XR chest 2V DATE OF EXAM: 07/17/2019 COMPARISON: 07/16/2019 TECHNIQUE: PA and lateral views submitted. HISTORY: Left pleural effusion FINDINGS: Bilateral consolidation and pleural effusion greater on the left stable. Heart is enlarged. No pneumo thorax. Interstitium is stable. Postsurgical changes noted. IMPRESSION: Bilateral pleural effusion and consolidation greater on the left is stable.
[2019-07-17] MEDS: ASPIRIN 81 MG PO SCH (08:49)
[2019-07-17] MEDS: LORATADINE 10 MG TAB PO SCH (08:49)
[2019-07-17] MEDS: MULTIVITAMINS, THERA 1 EACH TAB PO SCH (08:49)
[2019-07-17] MEDS: DILTIAZEM CD 180 MG CAP.ER.24H PO SCH (08:49)
[2019-07-17] MEDS: LOSARTAN 25 MG TAB PO SCH (08:49)
[2019-07-17] MEDS: DIGOXIN 250 MCG TAB PO SCH (08:49)
[2019-07-17] MEDS: METOPROLOL TARTRATE 25 MG TAB PO SCH ×2 (08:49→21:20)
[2019-07-17] MEDS: FUROSEMIDE 10 MG/ML 10 ML VIAL IV SCH ×3 (08:50→23:01)
[2019-07-17] MEDS: ALBUTEROL NEBULIZED 2.5 MG/3 ML INHALATION PRN ×4 (09:04→20:02)
[2019-07-17] MEDS: BUDESONIDE 0.5 MG/2 ML NEBU INHALATION SCH ×2 (09:04→20:02)
--- NOTE | 2019-07-17 11:25 | P.PN ---
Subjective Progress Note Date: 07/17/19 The patient is a 53 yo F with a PMH of type 2 diabetes mellitus, coronary artery disease status post CABG 06/22/19, and COPD who presented to the ED with complaints of shortness of breath and LE swelling. She underwent an extensive evaluation in the ED w/ CXR showing bilateral consolidation and pleural effusion greater on the L w/ mild central venous congestion. EKG revealed NSR @ 85 bpm w/ poor baseline. Laboratory evaluation revealed a troponin of 0.023, BNP of 424, WBC count of 4.3, hemoglobin 10, platelets 449, BUN 6, creatinine 0.54. She was admitted for multifactorial shortness of breath. She was started on IV lasix along with duonebs. Cardiothoracic surgery evaluated the patient and recommended that in light of her currently taking aspirin and plavix following CABG, that she would need to hold her plavix for 5 days prior to undergoing the thoracentesis for the pleural effusion. The patient was seen and evaluated at the bedside on 07/17. She noted significant improvement in her breathing since admission and notes significant urination during this time. She denied chest discomfort, cough, fever, or chills. Objective - Vital Signs Vital signs: Vital Signs Temp 97.9 F 07/17/19 08:00 Pulse 80 07/17/19 09:25 Resp 16 07/17/19 08:00 BP 132/85 07/17/19 08:00 Pulse Ox 97 07/17/19 08:00 Intake & Output 07/16/19 07/17/19 07/17/19 18:59 06:59 18:59 Intake Total 226 30 Output Total 500 Balance 226 -470 Weight 169.5 kg 161.6 kg Intake: Intake, IV Titration 100 Amount Magnesium Sulfate-D5w Pmx 100 1 gm In Dextrose/Water 1 100ml.bag @ 100 mls/hr IVPB Q1H [facility] Rx#: [id number] Oral 126 30 Output: Urine 500 Other: # Voids 1 # Bowel Movements 1 - Exam General: Non-toxic, in no acute distress, appears stated age, morbidly obese HEENT: NC/AT, anicteric sclerae, moist conjunctiva, no lid-lag, PERRLA Cardiovascular: S1/S2 wnl, no murmurs, rubs, or gallops Lungs: Poor breath sounds secondary to body habitus, normal respiratory effort, no accessory muscle use Abdominal: Soft, non-tender, non-distended, no guarding, rebound, or rigidity Skin: Warm, dry Extremities: 2+ LE edema arturo, no contractures, RAY bandages in place Psychiatric: Alert and oriented to person, place and time, appropriate affect Neuro: CN II-XII grossly intact, Strength 5/5 in all 4 extremities, Speech intact, Sensation to light touch grossly intact throughout - Labs CBC & Chem 7: 07/17/19 05:32 07/17/19 05:32 Labs: Abnormal Lab Results - Last 24 Hours (Table) 07/16/19 07/16/19 07/16/19 Range/Units 12:48 16:58 20:44 Hgb (11.4-16.0) gm/dL Hct (34.0-46.0) % Plt Count (150-450) k/uL Carbon Dioxide (22-30) mmol/L BUN (7-17) mg/dL Glucose (74-99) mg/dL POC Glucose (mg/dL) 155 H 220 H 178 H (75-99) mg/dL 07/17/19 07/17/19 07/17/19 Range/Units 05:32 05:32 06:04 Hgb 10.0 L (11.4-16.0) gm/dL Hct 32.2 L (34.0-46.0) % Plt Count 455 H (150-450) k/uL Carbon Dioxide 35 H (22-30) mmol/L BUN 6 L (7-17) mg/dL Glucose 192 H (74-99) mg/dL POC Glucose (mg/dL) 183 H (75-99) mg/dL Assessment and Plan Plan: Shortness of breath, likely multifactorial w/ L sided pleural effusion and mild acute CHF exacerbation w/ asthma exacerbation -Surgery and Cardiology recs appreciated -Intake and output -Fluid restriction -C/w Lasix IVP for now for likely DC in am -Monitor electrolytes -Plavix held for planned thoracentesis as outpatient Chronic conditions: CAD, Type 2 DM, COPD -Continue with home meds DVT prophylaxis -Heparin CODE STATUS: Full Code Discussed with: Patient Anticipated discharge date: 1-[address]: Home A total of 35 minutes was spent on the care of this complex patient more than 50% of the time was spent in counseling and care coordination.
[2019-07-17 12:33] LABS: Glucose,Whole Blood 160 mg/dL (75-99)
--- NOTE | 2019-07-17 15:00 | P.PN ---
Subjective Progress Note Date: 07/17/19 's is a 53-year-old female with history of recent coronary artery bypass grafting surgery, diabetes, hypertension, hyperlipidemia, COPD, who had bypass surgery the beginning of the month, came back to the hospital with symptoms of bilateral lower extremity edema and associated shortness breath. Chest x-ray showed a large left-sided pleural effusion. Patient was seen in consultation by Dr. Monk yesterday. Chest x-ray repeated today showed bilateral pleural effusions and consolidation greater on the left than the right. Blood pressure 110/70 with a heart rate in the 70s, 99% on 2 L of oxygen. White blood cell count 4.8, hemoglobin 10.0, platelet count 455. Sodium 142, potassium 3.6, BUN 6 and creatinine 0.5. Magnesium 1.9. Patient was seen and examined today, sitting up in the chair at bedside. Still complaining of shortness of breath especially with minimal exertion. Objective - Vital Signs Vital signs: Vital Signs Temp 97.9 F 07/17/19 08:00 Pulse 79 07/17/19 12:00 Resp 16 07/17/19 14:17 BP 110/73 07/17/19 12:00 Pulse Ox 99 07/17/19 12:00 Intake & Output 07/16/19 07/17/19 07/17/19 18:59 06:59 18:59 Intake Total 226 30 Output Total 500 Balance 226 -470 Weight 169.5 kg 161.6 kg Intake: Intake, IV Titration 100 Amount Magnesium Sulfate-D5w Pmx 100 1 gm In Dextrose/Water 1 100ml.bag @ 100 mls/hr IVPB Q1H [facility] Rx#: [id number] Oral 126 30 Output: Urine 500 Other: # Voids 1 # Bowel Movements 1 - Exam PHYSICAL EXAMINATION: GENERAL: 53-year-old female in no acute distress at the time of my examination HEENT: Head is atraumatic, normocephalic. Pupils equal, round. Sclera anicteric. Conjunctiva are clear. Mucous membranes of the mouth are moist. Neck is supple. There is no elevated jugular venous pressure. No carotid bruit is heard. HEART EXAMINATION: Heart S1, S2 normal. No murmur or gallop heard. CHEST EXAMINATION: On's reveal diminished air entry to bilateral bases. ABDOMEN: Soft, nontender. Bowel sounds are heard. No organomegaly noted. EXTREMITIES:[ 2+ peripheral pulses with 2+ evidence of peripheral edema bilateral Slade wraps in place. . NEUROLOGIC patient is awake, alert and oriented 3. . - Labs CBC & Chem 7: 07/17/19 05:32 07/17/19 05:32 Labs: Abnormal Lab Results - Last 24 Hours (Table) 07/16/19 07/16/19 07/17/19 Range/Units 16:58 20:44 05:32 Hgb 10.0 L (11.4-16.0) gm/dL Hct 32.2 L (34.0-46.0) % Plt Count 455 H (150-450) k/uL Carbon Dioxide (22-30) mmol/L BUN (7-17) mg/dL Glucose (74-99) mg/dL POC Glucose (mg/dL) 220 H 178 H (75-99) mg/dL 07/17/19 07/17/19 07/17/19 Range/Units 05:32 06:04 12:32 Hgb (11.4-16.0) gm/dL Hct (34.0-46.0) % Plt Count (150-450) k/uL Carbon Dioxide 35 H (22-30) mmol/L BUN 6 L (7-17) mg/dL Glucose 192 H (74-99) mg/dL POC Glucose (mg/dL) 183 H 160 H (75-99) mg/dL Assessment and Plan Plan: 1. Shortness of breath, left-sided pleural effusion 2. Lack of movement of left hemidiaphragm, likely from left-sided effusion 3. Coronary artery disease, status post four-vessel off-pump CABG 06/22/2019 4. Hypertension 5. Hyperlipidemia 6. Uncontrolled insulin dependent diabetes with hyperglycemia, most recent hemoglobin A1c 12.4% 7. Asthma 8. Obstructive sleep apnea with home CPAP use 9. Morbid obesity 10. Postoperative paroxysmal atrial fibrillation, status post left atrial appendage ligation, currently in normal sinus rhythm 11. Postoperative acute blood loss anemia, currently stable Plan Echocardiogram with Doppler is yet pending. Continue current dose of IV Lasix. DNP note has been reviewed, I agree with a documented findings and plan of care. Patient was seen and examined.
[2019-07-17] MEDS: HEPARIN SODIUM,PORCINE 5,000 UNIT/ML 1 ML VIAL SQ SCH ×2 (16:15→23:01)
[2019-07-17 16:33] LABS: Glucose,Whole Blood 151 mg/dL (75-99)
[2019-07-17 20:59] LABS: Glucose,Whole Blood 189 mg/dL (75-99)
[2019-07-17] MEDS: INSULIN DETEMIR (LEVEMIR) 100 UNIT/ML SYR SQ SCH (21:11)
--- NOTE | 2019-07-17 21:16 | PN ---
PROGRESS NOTE DATE OF SERVICE: 07/17/2019 She was seen on July 17, 2019. She continues to have shortness of breath. IS starting to improve. She has had about 1200. She has diuresed and has less edema. PHYSICAL EXAMINATION: Her blood pressure is 121/65, respiratory rate of 18, pulse rate of 78, temperature 97.7, O2 saturation on 2 L by nasal cannula is 100%. HEENT reveals pupils are equal. Chest reveals decreased breath sounds in the left base with dullness to percussion. There is prolonged exhalation but no clear wheeze. Cardiovascular system: Reveals S1, S2. No S3, no S4. No murmurs. Abdomen is soft. There is 1+ pedal edema. LABS: Reveal a white count of 4.8, hemoglobin of 10. Sodium 142, potassium 3.6, chloride 101, bicarb 35, BUN 6, creatinine 0.53. Chest x-ray continues to show atelectatic change and effusion on the left. IMPRESSION: At this time: 1. Coronary artery disease status post coronary artery bypass with left-sided pleural effusion and atelectasis. 2. Left-sided diaphragmatic hemiparesis. 3. Severe asthma. 4. Type 2 diabetes. 5. Obstructive sleep apnea. 6. Obesity. At this point in time, encourage her to increase her activity. Encourage incentive spirometry. She was counseled regarding the need to check her weight and the utility of using her weight loss or weight gain as a means of reflecting on her fluid status. Continue to keep her in negative fluid balance. Agree with close outpatient followup and possible thoracentesis after she is off Plavix if she is not improved. Continue to attempt to hold off on systemic steroids. Continue bronchodilators, aerosolized steroids, and leukotriene receptor antagonist at this time. She was counseled regarding her condition and this approach. MMODL / IJN: [id number] /
[2019-07-17] MEDS: LATANOPROST 0.005% OPHTH DROPS 2.5 ML BTL BOTH EYES SCH (21:19)
[2019-07-17] MEDS: ATORVASTATIN 80 MG TAB PO SCH (21:20)
[2019-07-17] MEDS: MONTELUKAST 10 MG TAB PO SCH (21:20)
[2019-07-18 06:02] LABS: Glucose,Whole Blood 198 mg/dL (75-99)
[2019-07-18] MEDS: PANTOPRAZOLE 40 MG TABLET PO SCH (06:25)
[2019-07-18] MEDS: INSULIN ASPART (NovoLOG) 100 UNIT/ML VIAL SQ SCH ×3 (06:25→17:30)
[2019-07-18] MEDS: ALBUTEROL NEBULIZED 2.5 MG/3 ML INHALATION PRN ×3 (07:22→16:16)
[2019-07-18] MEDS: BUDESONIDE 0.5 MG/2 ML NEBU INHALATION SCH (07:23)
[2019-07-18] MEDS: DILTIAZEM CD 180 MG CAP.ER.24H PO SCH (08:42)
[2019-07-18] MEDS: FUROSEMIDE 10 MG/ML 10 ML VIAL IV SCH ×2 (08:42→17:11)
[2019-07-18] MEDS: DIGOXIN 250 MCG TAB PO SCH (08:42)
[2019-07-18] MEDS: HEPARIN SODIUM,PORCINE 5,000 UNIT/ML 1 ML VIAL SQ SCH ×2 (08:42→17:10)
[2019-07-18] MEDS: ASPIRIN 81 MG PO SCH (08:42)
[2019-07-18] MEDS: LORATADINE 10 MG TAB PO SCH (08:42)
[2019-07-18] MEDS: MULTIVITAMINS, THERA 1 EACH TAB PO SCH (08:42)
[2019-07-18] MEDS: LOSARTAN 25 MG TAB PO SCH (08:42)
[2019-07-18] MEDS: METOPROLOL TARTRATE 25 MG TAB PO SCH (08:47)
[2019-07-18 08:53] VITALS: RESP 20; TEMP 97.7
--- NOTE | 2019-07-18 09:11 | P.DS ---
Providers Date of admission: 07/16/19 11:42 Expected date of discharge: 07/18/19 Attending physician: Moreno Gallagher MD Consults: 07/16/19 11:42 Consult Physician Routine Consulting Provider: Sammy Montanez Consult Reason/Comments: Dyspnea Do you want consulting provider notified?: Yes Consult Physician Routine Consulting Provider: Raymond Delvalle Consult Reason/Comments: Pleural effusion Do you want consulting provider notified?: Yes 07/16/19 15:02 Consult Physician Urgent Consulting Provider: Niels Lundy Consult Reason/Comments: CHF exacerbation Do you want consulting provider notified?: Yes Primary care physician: Stated None Hospital Course: The patient is a 53 yo F with a PMH of type 2 diabetes mellitus, coronary artery disease status post CABG 06/22/19, and asthma who presented to the ED with complaints of shortness of breath and LE swelling. She underwent an extensive evaluation in the ED w/ CXR showing bilateral consolidation and pleural effusion greater on the L w/ mild central venous congestion. EKG revealed NSR @ 85 bpm w/ poor baseline. Laboratory evaluation revealed a troponin of 0.023, BNP of 424, WBC count of 4.3, hemoglobin 10, platelets 449, BUN 6, creatinine 0.54. She was admitted for multifactorial shortness of breath suspected due to pleural effusion, CHF exacerbation, and asthma exacerbation. She was started on IV lasix and her asthma medications were continued. Cardiothoracic surgery evaluated the patient and recommended that in light of her currently taking aspirin and plavix following CABG, that she would need to hold her plavix for 5 days prior to undergoing the thoracentesis for the pleural effusion. The patient's breathing gradually improved as she was diuresed. Patient was seen and examined at the bedside on the day of discharge. She reported that her breathing is almost back to her baseline. Denied chest pain, wheezing. Also denied cough, fever, or chills. Discussed with the patient in details regarding the need to hold her Plavix to undergo thoracentesis. Further advised the patient to limit her fluid and salt intake and follow-up with her weight inspector and primary care physician. Physical Examination General: Non-toxic, in no acute distress, appears stated age, morbidly obese HEENT: NC/AT, anicteric sclerae, moist conjunctiva, no lid-lag, PERRLA Cardiovascular: S1/S2 wnl, no murmurs, rubs, or gallops Lungs: Clear to auscultation, normal respiratory effort, no accessory muscle use Abdominal: Soft, non-tender, non-distended, no guarding, rebound, or rigidity Skin: Warm, dry Extremities: 1+ arturo LE edema significantly improved, no contractures Psychiatric: Alert and oriented to person, place and time, appropriate affect Neuro: CN II-XII grossly intact, Strength 5/5 in all 4 extremities, Speech intact, Sensation to light touch grossly intact throughout Discharge diagnosis: Shortness of breath; L sided pleural effusion; acute CHF exacerbation; mild asthma exacerbation; coronary artery disease status post CABG 06/22/19; type 2 diabetes mellitus; asthma A total of 35 minutes of time were spent preparing this complex discharge summary. Patient Condition at Discharge: Stable Plan - Discharge Summary Discharge Rx Participant: No New Discharge Prescriptions: New Aspirin 81 mg PO DAILY #30 chew Furosemide [Lasix] 60 mg PO BID #60 tab Continue Mometasone/Formoterol [Dulera 100 Mcg/5 Mcg Inhaler] 2 puff INHALATION RT-BID Albuterol Nebulized [Ventolin Nebulized] 2.5 mg INHALATION RT-Q4H PRN PRN Reason: Shortness Of Breath Latanoprost/Pf [Latanoprost 0.005% Eye Drop] 1 drop BOTH EYES HS Diltiazem Cd [Cardizem CD] 180 mg PO DAILY #30 cap.er.24h Loratadine [Claritin] 10 mg PO DAILY #30 tab Losartan [Cozaar] 25 mg PO Q24H #30 tab Digoxin [Lanoxin] 250 mcg PO DAILY #30 tab Metoprolol Tartrate [Lopressor] 75 mg PO BID #120 tab Nystatin 100,000 Unit/ml Susp [Mycostatin Oral Susp] 500,000 unit PO QID #30 cup Pantoprazole [Protonix] 40 mg PO AC-BRKFST #30 tablet.dr Acetaminophen Tab [Tylenol] 1,000 mg PO Q6HR PRN #120 tab PRN Reason: Fever and/ or Mild Pain Atorvastatin [Lipitor] 80 mg PO HS 30 Days #30 tab Multivitamins, Thera [Multivitamin (formulary)] 1 tab PO DAILY #30 tab Montelukast Sodium [Singulair] 10 mg PO HS #30 tab Promethazine [Phenergan] 12.5 mg PO Q6HR PRN PRN Reason: Nausea Sennosides-Docusate Sodium [Senokot-S] 2 tab PO HS PRN PRN Reason: Constipation Insulin Glargine,Hum.rec.anlog [Basaglar Kwikpen U-100] 50 unit SQ HS HYDROcodone/APAP 5-325MG [Ranson 5-325] 1 tab PO Q4HR PRN PRN Reason: Pain Insulin Lispro [Admelog Solostar] See Protocol SQ AC-TID Discontinued Albuterol Inhaler [Ventolin Hfa Inhaler] 1 - 2 puff INHALATION RT-Q6H PRN #1 inhaler PRN Reason: Shortness Of Breath Aspirin 325 mg PO DAILY #30 tab Furosemide [Lasix] 40 mg PO BID #60 tablet Clopidogrel [Plavix] 75 mg PO DAILY #30 tab Discharge Medication List Mometasone/Formoterol [Dulera 100 Mcg/5 Mcg Inhaler] 2 puff INHALATION RT-BID 07/26/18 [History] Albuterol Nebulized [Ventolin Nebulized] 2.5 mg INHALATION RT-Q4H PRN 03/31/19 [History] Latanoprost/Pf [Latanoprost 0.005% Eye Drop] 1 drop BOTH EYES HS 06/12/19 [History] Acetaminophen Tab [Tylenol] 1,000 mg PO Q6HR PRN #120 tab 06/29/19 [Rx] Atorvastatin [Lipitor] 80 mg PO HS 30 Days #30 tab 06/29/19 [Rx] Digoxin [Lanoxin] 250 mcg PO DAILY #30 tab 06/29/19 [Rx] Diltiazem Cd [Cardizem CD] 180 mg PO DAILY #30 cap.er.24h 06/29/19 [Rx] Loratadine [Claritin] 10 mg PO DAILY #30 tab 06/29/19 [Rx] Losartan [Cozaar] 25 mg PO Q24H #30 tab 06/29/19 [Rx] Metoprolol Tartrate [Lopressor] 75 mg PO BID #120 tab 06/29/19 [Rx] Montelukast Sodium [Singulair] 10 mg PO HS #30 tab 06/29/19 [Rx] Multivitamins, Thera [Multivitamin (formulary)] 1 tab PO DAILY #30 tab 06/29/19 [Rx] Nystatin 100,000 Unit/ml Susp [Mycostatin Oral Susp] 500,000 unit PO QID #30 cup 06/29/19 [Rx] Pantoprazole [Protonix] 40 mg PO AC-BRKFST #30 tablet.dr 06/29/19 [Rx] HYDROcodone/APAP 5-325MG [Ranson 5-325] 1 tab PO Q4HR PRN 07/16/19 [History] Insulin Glargine,Hum.rec.anlog [Basaglar Kwikpen U-100] 50 unit SQ HS 07/16/19 [History] Insulin Lispro [Admelog Solostar] See Protocol SQ AC-TID 07/16/19 [History] Promethazine [Phenergan] 12.5 mg PO Q6HR PRN 07/16/19 [History] Sennosides-Docusate Sodium [Senokot-S] 2 tab PO HS PRN 07/16/19 [History] Aspirin 81 mg PO DAILY #30 chew 07/18/19 [Rx] Furosemide [Lasix] 60 mg PO BID #60 tab 07/18/19 [Rx] Follow up Appointment(s)/Referral(s): Sammy Montanez MD [STAFF PHYSICIAN] - 07/19/19 1:15 pm None,Stated [Primary Care Provider] - 1-2 days Activity/Diet/Wound Care/Special Instructions: DISCHARGE INSTRUCTIONS: 1. No driving for 4 weeks, or until physician gives their ok. 2. The patient should sleep in their own bed, no medical bed needed. 3. Stairs are not an issue. If the bedroom is upstairs, it is advised that the patient go up at night and down in the morning for the first week. Go slowly, using handrail and take 1 step at a time. 4. ZAINAB hose are to be worn for 30 days or until physician discontinues. 5. Heart hugger is to be worn 100% of the time until physician discontinues.(except when showering) 6. No lifting, pushing, or pulling more than 10 pounds for 12 weeks. The physician will advise of any restriction changes. 7. The patient is expected to continue the prescribed walking program. 8. Continue pain control per as needed orders. 9. Continue with incentive spirometry and splinting/heart hugger until otherwise directed by the physician. 10. Must shower daily using liquid antibacterial soap and a separate white washcloth for each individual incision. 11. Routine sternal incision care. No powders, lotions, ointments on incisions. 12. Please call surgeon/DIRECTOR OF RESEARCH for temp greater than 101 F or purulent drainage from incisions. HOME HEALTH SERVICES TO PROVIDE: RN SKILLED HOME CARE SERVICES FOR POST-OP SURGICAL PATIENTS WITH THE FOLLOWING: Coronary Artery Bypass Surgery (CABG), Mitral Valve Replacement/Repair ( MVR), Aortic Valve Replacement/Repair (AVR) RN TO CONTINUE EDUCATION FROM ``ROAD TO A HEALTH HEART PATIENT EDUCATION MANUAL (GIVEN TO PATIENT IN THE HOSPITAL) MEDICATION RECONCILIATION WITH EDUCATION NEEDED ON FIRST HOME VISIT EMPHASIZE IMPORTANCE OF WEARING BREAST SUPPORT/HEART HUGGER ENCOURAGE USE OF INCENTIVE SPIROMETER 10 X EVERY HOUR WHILE AWAKE ENCOURAGE UTILIZATION OF LOWER EXTREMITY COMPRESSION STOCKINGS/ZAINAB HOSE and ELEVATE LEGS ABOVE LEVEL OF HEART WHILE AT REST. ENCOURAGE AMBULATION 3-5x/day INCREASING TOLERATES, WHILE AVOID EXTREMES IN TEMPERATURE FREQUENCY: RN TO OPEN THE PATIENT WITHIN 24 HOURS OF DISCHARGE FROM THE HOSPITAL WITH TELEHEALTH INSTALLED AT [facility] – [place], RN TO VISIT 2-3 X A WEEK FOR 4 WEEKS ESTABLISHED BY PATIENT NEEDS. TELEHEALTH PARAMETERS: WEIGHT: NOTIFY MD OF WEIGHT GAIN OF 2 LBS IN 24 HOURS OR 5 LBS IN ONE WEEK HR: NOTIFY MD OF HR <55 BPM OR HR>100 BPM BP: NOTIFY MD IF BP <90/55 OR BP>140/100 O2 SAT: NOTIFY MD IF PO2<93% ON ROOM AIR SEND TELEHEALTH REPORT TO METAL TRIMMER AND CARDIOVASCULAR SURGEON THE FIRST WEEK OF CARE AND THEN BI-WEEKLY. PLEASE ADDITIONALLY COMMUNICATE ANY ABNORMALS AND NEW FINDINGS TO THE SURGEONS OFFICE. Discharge Disposition: HOME SELF-CARE
[2019-07-18 11:47] LABS: Glucose,Whole Blood 153 mg/dL (75-99)
[2019-07-18 11:54] VITALS: BP 105/55
--- NOTE | 2019-07-18 12:01 | ECHOF ---
Referral Reason:chf MEASUREMENTS -------- HEIGHT: 170.2 cm WEIGHT: 159.7 kg BP: 123/57 RVIDd: 3.3 cm (< 3.3) IVSd: 1.3 cm (0.6 - 1.1) LVIDd: 3.6 cm (3.9 - 5.3) LVPWd: 1.7 cm (0.6 - 1.1) IVSs: 1.7 cm LVIDs: 1.9 cm LVPWs: 1.6 cm Ao Diam: 3.2 cm (2.0 - 3.7) AV Cusp: 1.8 cm (1.5 - 2.6) LA Diam: 4.0 cm (2.7 - 3.8) MV EXCURSION: 15.618 mm (> 18.000) MV EF SLOPE: 67 mm/s (70 - 150) EPSS: 0.4 cm MV E Christophe: 0.54 m/s MV DecT: 193 ms MV A Christophe: 0.81 m/s MV E/A Ratio: 0.67 RAP: 5.00 mmHg RVSP: 24.33 mmHg FINDINGS -------- Sinus rhythm. Morbid Obesity 06/22/19 CABG x 4, Pt back for SOB. The left ventricular size is normal. Overall left ventricular systolic function is low-normal with, an EF between 50 - 55 %. 5.0mg OF Lumason UTLIZED: 2 OR MORE WALL SEGMENTS NOT VISUALIZED. IAS not well Visualized. The aortic valve is trileaflet, and appears structurally normal. No aortic stenosis or regurgitation. Mild tricuspid regurgitation present. There is no evidence of pulmonary hypertension. The right v entricular systolic pressure, as measured by Doppler, is 24.33mmHg. The pulmonic valve was not well visualized. The aortic root size is normal. There is a small pericardial effusion is located near the right ventricle. fibrinous debris noted. CONCLUSIONS -------- 1. Sinus rhythm. 2. Morbid Obesity 3. 06/22/19 CABG x 4, Pt back for SOB. 4. The left ventricular size is normal. 5. Overall left ventricular systolic function is low-normal with, an EF between 50 - 55 %. 6. 5.0mg OF Lumason UTLIZED: 2 OR MORE WALL SEGMENTS NOT VISUALIZED. 7. IAS not well Visualized. 8. The aortic valve is trileaflet, and appears structurally normal. No aortic stenosis or regurgitati on. 9. Mild tricuspid regurgitation present. 10. There is no evidence of pulmonary hypertension. 11. The right ventricular systolic pressure, as measured by Doppler, is 24.33mmHg. 12. The pulmonic valve was not well visualized. 13. The aortic root size is normal. 14. There is a small pericardial effusion is located near the right ventricle. fibrinous debris noted . LOSS CONTROL CONSULTANT: Esha Barhnart RDCS
--- NOTE | 2019-07-18 12:40 | P.PN ---
Subjective Progress Note Date: 07/18/19 This is a 53-year-old female with history of recent coronary artery bypass grafting surgery, diabetes, hypertension, hyperlipidemia, COPD, who had bypass surgery the beginning of the month, came back to the hospital with symptoms of bilateral lower extremity edema and associated shortness breath. Chest x-ray showed a large left-sided pleural effusion. Patient was seen in consultation by Dr. Monk yesterday. Chest x-ray repeated today showed bilateral pleural effusions and consolidation greater on the left than the right. Blood pressure 110/70 with a heart rate in the 70s, 99% on 2 L of oxygen. White blood cell count 4.8, hemoglobin 10.0, platelet count 455. Sodium 142, potassium 3.6, BUN 6 and creatinine 0.5. Magnesium 1.9. Patient was seen and examined today, sitting up in the chair at bedside. Still complaining of shortness of breath especially with minimal exertion. 07/18/2019 Patient was seen and examined this morning, she does state that her breathing has improved overall, still complains of some mild shortness of breath. Echo cardiac gram with Doppler study was performed today which revealed an ejection fraction of 50-55%. There is a small pericardial effusion. The right ventricle, fibrinous debris is noted. Blood pressure 105/60 with a heart rate in the 80s, 98% on 2 L of oxygen. Objective - Vital Signs Vital signs: Vital Signs Temp 97.7 F 07/18/19 08:00 Pulse 86 07/18/19 11:53 Resp 20 07/18/19 11:53 BP 105/55 07/18/19 11:53 Pulse Ox 98 07/18/19 11:53 Intake & Output 07/17/19 07/18/19 07/18/19 18:59 06:59 18:59 Intake Total 462 444 240 Output Total 200 300 Balance 262 144 240 Weight 160 kg Intake: Oral 462 444 240 Output: Urine 200 300 Other: # Voids 2 - Exam PHYSICAL EXAMINATION: GENERAL: 53-year-old female in no acute distress at the time of my examination HEENT: Head is atraumatic, normocephalic. Pupils equal, round. Sclera anicteric. Conjunctiva are clear. Mucous membranes of the mouth are moist. Neck is supple. There is no elevated jugular venous pressure. No carotid bruit is heard. HEART EXAMINATION: Heart S1, S2 normal. No murmur or gallop heard. CHEST EXAMINATION: On's reveal diminished air entry to bilateral bases. ABDOMEN: Soft, nontender. Bowel sounds are heard. No organomegaly noted. EXTREMITIES:[ 2+ peripheral pulses with 2+ evidence of peripheral edema bilateral Slade wraps in place. . NEUROLOGIC patient is awake, alert and oriented 3. . - Labs CBC & Chem 7: 07/17/19 05:32 07/17/19 05:32 Labs: Abnormal Lab Results - Last 24 Hours (Table) 07/17/19 07/17/19 07/17/19 Range/Units 12:32 16:32 20:57 POC Glucose (mg/dL) 160 H 151 H 189 H (75-99) mg/dL 07/18/19 07/18/19 Range/Units 06:00 11:46 POC Glucose (mg/dL) 198 H 153 H (75-99) mg/dL Assessment and Plan Plan: 1. Shortness of breath, left-sided pleural effusion 2. Lack of movement of left hemidiaphragm, likely from left-sided effusion 3. Coronary artery disease, status post four-vessel off-pump CABG 06/22/2019 4. Hypertension 5. Hyperlipidemia 6. Uncontrolled insulin dependent diabetes with hyperglycemia, most recent hemoglobin A1c 12.4% 7. Asthma 8. Obstructive sleep apnea with home CPAP use 9. Morbid obesity 10. Postoperative paroxysmal atrial fibrillation, status post left atrial appendage ligation, currently in normal sinus rhythm 11. Postoperative acute blood loss anemia, currently stable Plan Echocardiogram with Doppler study was performed revealed an ejection fraction of 50-55%. Small pericardial effusion. Because the patient was on Plavix, thoracentesis will not be performed at this time. The patient does have an appointment with Dr. Montanez in the office tomorrow which she has been advised to keep. She also has an appointment later in the week with Dr. Justin Delvalle. Patient will be discharged home today. DNP note has been reviewed, I agree with a documented findings and plan of care. Patient was seen and examined.
[2019-07-18 16:26] VITALS: PULSE 86
[2019-07-18 17:06] LABS: Glucose,Whole Blood 222 mg/dL (75-99)
--- NOTE | 2019-07-18 18:24 | PN ---
PROGRESS NOTE DATE OF SERVICE: 07/18/2019 She was seen on 07/18/2019. Her IS is slightly above 1 L. She denies any fever or chills. She is less short of breath. On physical examination, blood pressure is 106/55, respiratory rate 20, pulse rate 86, temperature 97.7, O2 saturation on 2 L by nasal cannula is 98%. HEENT reveals pupils are equal. Chest reveals decreased breath sounds in the left base. No wheeze. Cardiovascular system revealed an S1, S2. No S3, no S4. Abdomen is soft. There is 1+ pedal edema. IMPRESSION: At this time is: 1. Coronary artery disease status post coronary artery bypass. 2. Left-sided pleural effusion with atelectasis. 3. Left diaphragmatic paresis. 4. Obesity. 5. Diabetes mellitus. 6. Congestive heart failure and fluid overload. 7. Severe asthma. At this point in time, agree with discharge planning. Have her check daily weights at home and optimize her fluid status. If her incentive spirometry improves and she is less symptomatic, she may not require a left-sided thoracentesis. She is supposed to see cardiothoracic surgery Dr. Montanez tomorrow and will be evaluated by us in the next 2-3 days. We will continue her on her previous home medications with close outpatient followup. She may benefit from pulmonary or cardiac rehab. She was counseled regarding her condition. Depending on how she does, we should make further changes to her care. MMODL / IJN: [id number] /
== END 2019-07-18 19:11 | disposition home or self-care (01) ==
LOC: EC 09:22 → 3SCARD 11:42
PROVIDERS: ADMIT Internal Medicine; ATTEND Internal Medicine
DX: R06.02 Shortness of breath (principal); J90 Pleural effusion, not elsewhere classified; I11.0 Hypertensive heart disease with heart failure; I50.9 Heart failure, unspecified; J45.901 Unspecified asthma with (acute) exacerbation; I25.10 Atherosclerotic heart disease of native coronary artery without angina pectoris; Z95.1 Presence of aortocoronary bypass graft; E66.01 Morbid (severe) obesity due to excess calories; Z68.43 Body mass index [BMI] 50.0-59.9, adult; J44.9 Chronic obstructive pulmonary disease, unspecified; G47.33 Obstructive sleep apnea (adult) (pediatric); E78.5 Hyperlipidemia, unspecified; G47.30 Sleep apnea, unspecified; E11.65 Type 2 diabetes mellitus with hyperglycemia; E11.319 Type 2 diabetes mellitus with unspecified diabetic retinopathy without macular edema; J98.11 Atelectasis; J98.6 Disorders of diaphragm; Z99.89 Dependence on other enabling machines and devices; H40.9 Unspecified glaucoma; G89.29 Other chronic pain; Z86.718 Personal history of other venous thrombosis and embolism; Z86.79 Personal history of other diseases of the circulatory system; Z80.0 Family history of malignant neoplasm of digestive organs; Z83.3 Family history of diabetes mellitus; Z82.49 Family history of ischemic heart disease and other diseases of the circulatory system; Z79.51 Long term (current) use of inhaled steroids; Z79.82 Long term (current) use of aspirin; Z79.02 Long term (current) use of antithrombotics/antiplatelets; Z79.899 Other long term (current) drug therapy; Z79.891 Long term (current) use of opiate analgesic; Z79.4 Long term (current) use of insulin; Z91.048 Other nonmedicinal substance allergy status
CPT/HCPCS: 96376 ×3; 96365; 96366 ×2; 96372 ×2; 96375; 99285; 36415; 94660 ×2; 94640 ×6; 94760 ×2; 93005; 97116 ×2; 97162; 97535; 97166; 83880; 80053; 80048; 83735 ×2; 84484; 85025; 85027; 85610; 85730; 76000; 71046 ×2; 76604; G0378 ×3; C8929; J1644 ×2; J1940 ×4; J3475 ×2; Q9950; 93306

== ENCOUNTER 2019-07-24 09:27 | Day surgery (SDC) | payer OTHER ==
[2019-07-24 09:53] VITALS: RESP 20; TEMP 98.1
[2019-07-24 10:19] LABS: Mean Platelet Volume 6.3; Platelet Count 344 k/uL (150-450)
[2019-07-24 10:33] LABS: Prothrombin Time 10.8 sec (9.0-12.0)
[2019-07-24 11:25] VITALS: BP 109/80; PULSE 81
--- NOTE | 2019-07-24 11:28 | XR ---
EXAMINATION TYPE: XR chest 1V portable DATE OF EXAM: 07/24/2019 COMPARISON: Prior chest x-ray 07/17/2019 HISTORY: Status post left thoracentesis TECHNIQUE: Single frontal view of the chest is obtained. FINDINGS: There is some improvement in aeration in the left upper lobe as compared to prior exam. Pa tient is post median sternotomy and left atrial appendage clipping, and the heart is enlarged. No marlen dent pneumothorax. IMPRESSION: No evident complication status post thoracentesis.
--- NOTE | 2019-07-24 15:35 | US ---
EXAMINATION TYPE: US thoracentesis DATE OF EXAM: 07/24/2019 COMPARISON: NONE HISTORY: Pleural effusion. FINDINGS: Maximal barrier technique was utilized. The skin overlying a suitable pocket of fluid was localized and the overlying skin prepped and draped. Lidocaine was used for local anesthesia. Ultras ound was used with sterile technique. A 5 Divehi catheter over guide needle was advanced into the pl eural fluid collection using ultrasound guidance and catheter advanced, needle removed. Approximatel y 0.5 liter(s) of sanguinous fluid was removed. Catheter was withdrawn and hemostasis achieved. The re is no immediate complication. The patient discharged in stable condition without complication. IMPRESSION: STATUS POST ULTRASOUND GUIDED THORACENTESIS, POST PROCEDURE CHEST X-RAY PENDING. THIS MT OCEDURE WAS PERFORMED BY THE UNDERSIGNED. Specimen obtained for laboratory analysis.
== END 2019-07-24 11:30 | disposition home or self-care (01) ==
LOC: RADPROMAIN 09:27
PROVIDERS: ATTEND Thoracic Surgery (Cardiothoracic Vascular Surgery)
DX: J90 Pleural effusion, not elsewhere classified (principal); Z79.02 Long term (current) use of antithrombotics/antiplatelets; Z91.048 Other nonmedicinal substance allergy status
CPT/HCPCS: 32555; 36415; 71045; 85049; 85610; 87070; 87205; 88108; 88305

== ENCOUNTER 2019-08-27 16:05 | Inpatient (IN) | payer OTHER ==
[2019-08-27] MEDS ORDERED: IPRATROPIUM-ALBUTEROL 3 ML NEB INHALATION STA ×2 (17:14→18:45)
--- NOTE | 2019-08-27 17:17 | ED ---
General Adult HPI - General Chief complaint: Shortness of Breath Stated complaint: SOB Time Seen by Provider: 08/27/19 16:50 Source: patient, RN notes reviewed Mode of arrival: ambulatory Limitations: no limitations - History of Present Illness Initial comments: Patient is a pleasant 83-year-old female presenting to the emergency Department with complaints of difficulty in breathing. Onset of symptoms was a couple of days ago. No significant cough. Patient does have some mild leg swelling which she does get occasionally. No chest pain. Patient does have history of similar symptoms once previously with effusion. Patient did have cardiac surgery with sternotomy done in June. No leg pain. No fever. - Related Data Home Medications Medication Instructions Recorded Confirmed Mometasone/Formoterol [Dulera 100 2 puff INHALATION RT-BID 07/26/18 07/23/19 Mcg/5 Mcg Inhaler] Albuterol Nebulized [Ventolin 2.5 mg INHALATION RT-Q4H PRN 03/31/19 07/23/19 Nebulized] Latanoprost/Pf [Latanoprost 0.005% 1 drop BOTH EYES HS 06/12/19 07/23/19 Eye Drop] HYDROcodone/APAP 5-325MG [[place] 1 tab PO Q4HR PRN 07/16/19 07/23/19 5-325] Insulin Glargine,Hum.rec.anlog 50 unit SQ HS 07/16/19 07/23/19 [Basaglar Kwikpen U-100] Insulin Lispro [Admelog Solostar] See Protocol SQ AC-TID 07/16/19 07/23/19 Promethazine [Phenergan] 12.5 mg PO Q6HR PRN 07/16/19 07/23/19 Sennosides-Docusate Sodium 2 tab PO HS PRN 07/16/19 07/23/19 [Senokot-S] Clopidogrel [Plavix] 75 mg PO DAILY 07/23/19 07/23/19 Previous Rx's Medication Instructions Recorded Acetaminophen Tab [Tylenol] 1,000 mg PO Q6HR PRN #120 tab 06/29/19 Atorvastatin [Lipitor] 80 mg PO HS 30 Days #30 tab 06/29/19 Digoxin [Lanoxin] 250 mcg PO DAILY #30 tab 06/29/19 Diltiazem Cd [Cardizem CD] 180 mg PO DAILY #30 cap.er.24h 06/29/19 Loratadine [Claritin] 10 mg PO DAILY #30 tab 06/29/19 Losartan [Cozaar] 25 mg PO Q24H #30 tab 06/29/19 Metoprolol Tartrate [Lopressor] 75 mg PO BID #120 tab 06/29/19 Montelukast Sodium [Singulair] 10 mg PO HS #30 tab 06/29/19 Multivitamins, Thera [Multivitamin 1 tab PO DAILY #30 tab 06/29/19 (formulary)] Nystatin 100,000 Unit/ml Susp 500,000 unit PO QID #30 cup 06/29/19 [Mycostatin Oral Susp] Pantoprazole [Protonix] 40 mg PO AC-BRKFST #30 tablet.dr 06/29/19 Aspirin 81 mg PO DAILY #30 chew 07/18/19 Furosemide [Lasix] 60 mg PO BID #60 tab 07/18/19 Allergies Allergy/AdvReac Type Severity Reaction Status Date / Time mold AdvReac Itching Verified 07/24/19 10:13 dust Allergy Mild Itching Uncoded 07/24/19 10:13 Review of Systems ROS Statement: Those systems with pertinent positive or pertinent negative responses have been documented in the HPI. ROS Other: All systems not noted in ROS Statement are negative. Constitutional: Denies: fever Eyes: Denies: eye pain ENT: Denies: ear pain Respiratory: Reports: dyspnea Cardiovascular: Denies: chest pain Endocrine: Reports: fatigue Gastrointestinal: Denies: abdominal pain Genitourinary: Denies: dysuria Musculoskeletal: Denies: back pain Skin: Denies: rash Neurological: Denies: weakness Past Medical History Past Medical History: Asthma, Coronary Artery Disease (CAD), Diabetes Mellitus, Eye Disorder, Hyperlipidemia, Hypertension, Sleep Apnea/CPAP/BIPAP Additional Past Medical History / Comment(s): retinopathy,GLAUCOMA, chronic дмитрий n, BLOOD CLOT IN ARM 30 YEARS AGO R/T TO PICC LINE MISPLACEMENT, uses CPAP History of Any Multi-Drug Resistant Organisms: None Reported Past Surgical History: Coronary Bypass/CABG, Heart Catheterization Additional Past Surgical History / Comment(s): PICC LINE; elective off-pump four-vessel coronary artery bypass graft surgery with left atrial appendage ligation on 06/22/2019 Past Anesthesia/Blood Transfusion Reactions: No Reported Reaction Additional Past Anesthesia/Blood Transfusion Reaction / Comment(s): no anesthesia Past Psychological History: No Psychological Hx Reported Smoking Status: Never smoker Past Alcohol Use History: None Reported Past Drug Use History: None Reported - Past Family History Father Family Medical History: Cancer Additional Family Medical History / Comment(s): Colon CA Mother Family Medical History: Diabetes Mellitus, Hypertension Brother(s) Family Medical History: Diabetes Mellitus General Exam Limitations: no limitations General appearance: alert, in no apparent distress Head exam: Present: normocephalic Eye exam: Present: normal appearance, PERRL ENT exam: Present: normal oropharynx Neck exam: Present: normal inspection Respiratory exam: Present: wheezes, decreased breath sounds Cardiovascular Exam: Present: regular rate, normal rhythm GI/Abdominal exam: Present: soft. Absent: tenderness Extremities exam: Present: normal inspection. Absent: pedal edema, calf tenderness Neurological exam: Present: alert Psychiatric exam: Present: normal affect, normal mood Skin exam: Present: normal color Course Vital Signs 08/27/19 08/27/19 08/27/19 16:31 17:11 17:32 Temperature 97.9 F Pulse Rate 76 75 Respiratory 21 22 Rate Blood Pressure 126/75 O2 Sat by Pulse 98 Oximetry 08/27/19 08/27/19 08/27/19 17:43 18:20 18:50 Temperature 98.6 F Pulse Rate 75 80 79 Respiratory 18 Rate Blood Pressure 136/71 O2 Sat by Pulse 99 Oximetry EKG Findings - EKG Comments: EKG Findings:: Normal sinus rhythm 75. ID 182. QRS 80. QT 376. QTc 419. Normal axis. Normal QRS. No acute ST change. Medical Decision Making - Medical Decision Making Patient reevaluated and resting comfortably in bed. Patient was slightly improved. Increased air exchange. Patient updated on results and plan. Case was discussed in detail with Dr. tomas, who will admit covering for Dr. Barton. She is familiar with this patient. - Lab Data Result diagrams: 08/27/19 17:33 08/27/19 17:33 Lab Results 08/27/19 08/27/19 08/27/19 Range/Units 17:33 17:33 17:33 WBC 4.5 (3.8-10.6) k/uL RBC 4.83 (3.80-5.40) m/uL Hgb 12.3 (11.4-16.0) gm/dL Hct 39.0 (34.0-46.0) % MCV 80.8 (80.0-100.0) fL MCH 25.5 (25.0-35.0) pg MCHC 31.5 (31.0-37.0) g/dL RDW 13.8 (11.5-15.5) % Plt Count 306 (150-450) k/uL Neutrophils % 56 % Lymphocytes % 23 % Monocytes % 6 % Eosinophils % 12 % Basophils % 1 % Neutrophils # 2.5 (1.3-7.7) k/uL Lymphocytes # 1.0 (1.0-4.8) k/uL Monocytes # 0.3 (0-1.0) k/uL Eosinophils # 0.6 (0-0.7) k/uL Basophils # 0.0 (0-0.2) k/uL Hypochromasia Moderate PT (9.0-12.0) sec INR (<1.2) APTT (22.0-30.0) sec Sodium 137 (137-145) mmol/L Potassium 3.9 (3.5-5.1) mmol/L Chloride 101 (98-107) mmol/L Carbon Dioxide 30 (22-30) mmol/L Anion Gap 6 mmol/L BUN 7 (7-17) mg/dL Creatinine 0.50 L (0.52-1.04) mg/dL Est GFR (CKD-EPI)AfAm >90 (>60 ml/min/1.73 sqM) Est GFR (CKD-EPI)NonAf >90 (>60 ml/min/1.73 sqM) Glucose 276 H (74-99) mg/dL Calcium 8.8 (8.4-10.2) mg/dL Total Bilirubin 0.6 (0.2-1.3) mg/dL AST 19 (14-36) U/L ALT 34 (9-52) U/L Alkaline Phosphatase 137 H (38-126) U/L Creatine Kinase 44 (30-135) U/L Troponin I (0.000-0.034) ng/mL NT-Pro-B Natriuret Pep 176 pg/mL Total Protein 6.7 (6.3-8.2) g/dL Albumin 3.4 L (3.5-5.0) g/dL 08/27/19 08/27/19 Range/Units 17:33 17:33 WBC (3.8-10.6) k/uL RBC (3.80-5.40) m/uL Hgb (11.4-16.0) gm/dL Hct (34.0-46.0) % MCV (80.0-100.0) fL MCH (25.0-35.0) pg MCHC (31.0-37.0) g/dL RDW (11.5-15.5) % Plt Count (150-450) k/uL Neutrophils % % Lymphocytes % % Monocytes % % Eosinophils % % Basophils % % Neutrophils # (1.3-7.7) k/uL Lymphocytes # (1.0-4.8) k/uL Monocytes # (0-1.0) k/uL Eosinophils # (0-0.7) k/uL Basophils # (0-0.2) k/uL Hypochromasia PT 10.0 (9.0-12.0) sec INR 0.9 (<1.2) APTT 23.3 (22.0-30.0) sec Sodium (137-145) mmol/L Potassium (3.5-5.1) mmol/L Chloride (98-107) mmol/L Carbon Dioxide (22-30) mmol/L Anion Gap mmol/L BUN (7-17) mg/dL Creatinine (0.52-1.04) mg/dL Est GFR (CKD-EPI)AfAm (>60 ml/min/1.73 sqM) Est GFR (CKD-EPI)NonAf (>60 ml/min/1.73 sqM) Glucose (74-99) mg/dL Calcium (8.4-10.2) mg/dL Total Bilirubin (0.2-1.3) mg/dL AST (14-36) U/L ALT (9-52) U/L Alkaline Phosphatase (38-126) U/L Creatine Kinase (30-135) U/L Troponin I 0.040 H* (0.000-0.034) ng/mL NT-Pro-B Natriuret Pep pg/mL Total Protein (6.3-8.2) g/dL Albumin (3.5-5.0) g/dL - Radiology Data Radiology results: image reviewed (Chest x-ray shows pulmonary congestion increased from prior. Limited exam. Left effusion and consolidation unchanged.) Disposition Clinical Impression: Dyspnea Disposition: ADMITTED IP TO THIS HOSP Is patient prescribed a controlled substance at d/c from ED?: No Referrals: Nonstaff,Physician [REFERRING] - 1-2 days Decision Time: 18:53
[2019-08-27 17:50] LABS: Basophils % (A) 1 %; Eosinophils # (A) 0.6 k/uL (0-0.7); Eosinophils % (A) 12 %; HGB 12.3 gm/dL (11.4-16.0); Hypochromasia Moderate; Lymphocytes % (A) 23 %; MCH 25.5 pg (25.0-35.0); MCHC 31.5 g/dL (31.0-37.0); MCV 80.8 fL (80.0-100.0); Mean Platelet Volume 8.4; Monocytes # (A) 0.3 k/uL (0-1.0); Monocytes % (A) 6 %; Neutrophils # (A) 2.5 k/uL (1.3-7.7); Neutrophils % (A) 56 %; Platelet Count 306 k/uL (150-450); RBC 4.83 m/uL (3.80-5.40); RDW 13.8 % (11.5-15.5); WBC 4.5 k/uL (3.8-10.6)
[2019-08-27 18:05] LABS: INR 0.9 (<1.2); Partial Thromboplastin Time 23.3 sec (22.0-30.0)
[2019-08-27 18:12] LABS: ALT 34 U/L (9-52); AST 19 U/L (14-36); African American GFR (CKD) >90 (>60 ml/min/1.73 sqM); Albumin 3.4 g/dL (3.5-5.0); Alkaline Phosphatase 137 U/L (38-126); Anion Gap 6 mmol/L; Blood Urea Nitrogen 7 mg/dL (7-17); Calcium 8.8 mg/dL (8.4-10.2); Carbon Dioxide 30 mmol/L (22-30); Chloride 101 mmol/L (98-107); Creatine Kinase 44 U/L (30-135); Glucose 276 mg/dL (74-99); Non-African American GFR(CKD) >90 (>60 ml/min/1.73 sqM); Potassium 3.9 mmol/L (3.5-5.1); Sodium 137 mmol/L (137-145); Total Bilirubin 0.6 mg/dL (0.2-1.3); Total Protein 6.7 g/dL (6.3-8.2)
--- NOTE | 2019-08-27 18:14 | XR ---
EXAMINATION TYPE: XR chest 2V DATE OF EXAM: 08/27/2019 COMPARISON: 07/24/2019 HISTORY: Difficulty breathing TECHNIQUE: Frontal and lateral views of the chest are obtained. FINDINGS: There is left pleural effusion and left lower lobe airspace consolidation. Exam is limited by patient's size. Heart appears enlarged. There are chest leads. There are sternal wires. IMPRESSION: Limited exam. Left pleural effusion and left lower lobe consolidation unchanged. Pulmona ry congestion increased compared to old exam.
[2019-08-27] MEDS ORDERED: FUROSEMIDE 10 MG/ML 4 ML VIAL IV STA (18:55)
--- NOTE | 2019-08-27 19:36 | CT ---
EXAMINATION TYPE: CT angio chest DATE OF EXAM: 08/27/2019 COMPARISON: 04/18/2019 HISTORY: Dypsnea. CT DLP: 858.8 mGycm Automated exposure control for dose reduction was used. CONTRAST: Performed with IV Contrast, patient injected with 79ml mL of Isovue 370. There are 3-D post processed images. There is small right pleural effusion. There is moderate size left pleural effusion. Heart is enlarge d. There are large central pulmonary arteries. I see no filling defects in the pulmonary arteries. There are bilateral bronchial lymph nodes that measure up to 1 cm. There is a 1.5 cm pretracheal lymph nod e. Thoracic spine is intact. IMPRESSION: No evidence of pulmonary embolism. Bilateral pleural effusions much larger on the left side are new c ompared to old exam and could relate to congestive heart failure. Heart appears increased in size com pared to last exam. Left basilar infiltrate and atelectasis.
[2019-08-27] MEDS: IPRATROPIUM-ALBUTEROL 3 ML NEB INHALATION SCH (20:17)
--- NOTE | 2019-08-27 20:26 | P.HPIM ---
History of Present Illness H&P Date: 08/27/19 The patient is a 53 yo F with a PMH of CAD s/p CABG 06/22/19, Type 2 DM, HTN, HLD, VU (on CPAP), COPD (on 2L NC continuous oxygen at home), follows w/ Dr Arreguin in the pulmonary/sleep clinic who presented to the ED w/ complaints of wheezing and SOB. She reports her symptoms started 3-4 days ago and gradually worsened despite her regular use of her inhalers. She also noted that her legs seemed to have been more swollen than usual. She denied any recent changes in her diet or excessive fluid intake. She further denied LE pain or erythema, cough, chest pain, nausea, vomiting, palpitations, dizziness, orthopnea, or PND. She reports compliance with all her medications at home. The patient underwent an extensive evaluation in the ED w/ Chest CTA showing new arturo pleural effusions with L>R along with increased size of the heart as compared to prior. No PE was noted with a 1.5 cm pretracheal lymph node visualized. EKG revealed NSR @ [address]-T wave changes noted. Laboratory evaluation revealed a Troponin level of 0.04, BNP 176, WBC 4.5, Hgb 12.3, BUN 7, Cr 0.5, Na 137, Cr 3.9, and CO2 30. The patient is being admitted to the medicine service for further management of acute COPD exacerbation. Review of Systems Pertinent positives and negatives as discussed in HPI, a complete review of systems was performed and all other systems are negative. Past Medical History Past Medical History: Asthma, Coronary Artery Disease (CAD), Diabetes Mellitus, Eye Disorder, Hyperlipidemia, Hypertension, Sleep Apnea/CPAP/BIPAP Additional Past Medical History / Comment(s): retinopathy,GLAUCOMA, chronic pain, BLOOD CLOT IN ARM 30 YEARS AGO R/T TO PICC LINE MISPLACEMENT, uses CPAP History of Any Multi-Drug Resistant Organisms: None Reported Past Surgical History: Coronary Bypass/CABG, Heart Catheterization Additional Past Surgical History / Comment(s): PICC LINE; elective off-pump four-vessel coronary artery bypass graft surgery with left atrial appendage ligation on 06/22/2019 Past Anesthesia/Blood Transfusion Reactions: No Reported Reaction Additional Past Anesthesia/Blood Transfusion Reaction / Comment(s): no anesthesia Past Psychological History: No Psychological Hx Reported Smoking Status: Never smoker Past Alcohol Use History: None Reported Past Drug Use History: None Reported - Past Family History Father Family Medical History: Cancer Additional Family Medical History / Comment(s): Colon CA Mother Family Medical History: Diabetes Mellitus, Hypertension Brother(s) Family Medical History: Diabetes Mellitus Medications and Allergies Home Medications Medication Instructions Recorded Confirmed Type Mometasone/Formoterol [Dulera 100 2 puff INHALATION RT-BID 07/26/18 07/23/19 History Mcg/5 Mcg Inhaler] Albuterol Nebulized [Ventolin 2.5 mg INHALATION RT-Q4H PRN 03/31/19 07/23/19 History Nebulized] Latanoprost/Pf [Latanoprost 0.005% 1 drop BOTH EYES HS 06/12/19 07/23/19 History Eye Drop] Acetaminophen Tab [Tylenol] 1,000 mg PO Q6HR PRN #120 tab 06/29/19 07/23/19 Rx Atorvastatin [Lipitor] 80 mg PO HS 30 Days #30 tab 06/29/19 07/23/19 Rx Digoxin [Lanoxin] 250 mcg PO DAILY #30 tab 06/29/19 07/23/19 Rx Diltiazem Cd [Cardizem CD] 180 mg PO DAILY #30 cap.er.24h 06/29/19 07/23/19 Rx Loratadine [Claritin] 10 mg PO DAILY #30 tab 06/29/19 07/23/19 Rx Losartan [Cozaar] 25 mg PO Q24H #30 tab 06/29/19 07/23/19 Rx Metoprolol Tartrate [Lopressor] 75 mg PO BID #120 tab 06/29/19 07/23/19 Rx Montelukast Sodium [Singulair] 10 mg PO HS #30 tab 06/29/19 07/23/19 Rx Multivitamins, Thera [Multivitamin 1 tab PO DAILY #30 tab 06/29/19 07/23/19 Rx (formulary)] Nystatin 100,000 Unit/ml Susp 500,000 unit PO QID #30 cup 06/29/19 07/23/19 Rx [Mycostatin Oral Susp] Pantoprazole [Protonix] 40 mg PO AC-BRKFST #30 tablet.dr 06/29/19 07/23/19 Rx HYDROcodone/APAP 5-325MG [[place] 1 tab PO Q4HR PRN 07/16/19 07/23/19 History 5-325] Insulin Glargine,Hum.rec.anlog 50 unit SQ HS 07/16/19 07/23/19 History [Basaglar Kwikpen U-100] Insulin Lispro [Admelog Solostar] See Protocol SQ AC-TID 07/16/19 07/23/19 History Promethazine [Phenergan] 12.5 mg PO Q6HR PRN 07/16/19 07/23/19 History Sennosides-Docusate Sodium 2 tab PO HS PRN 07/16/19 07/23/19 History [Senokot-S] Aspirin 81 mg PO DAILY #30 chew 07/18/19 07/23/19 Rx Furosemide [Lasix] 60 mg PO BID #60 tab 07/18/19 07/23/19 Rx Clopidogrel [Plavix] 75 mg PO DAILY 07/23/19 07/23/19 History Allergies Allergy/AdvReac Type Severity Reaction Status Date / Time mold AdvReac Itching Verified 07/24/19 10:13 dust Allergy Mild Itching Uncoded 07/24/19 10:13 Physical Exam Vitals: Vital Signs Temp Pulse Resp BP Pulse Ox 08/27/19 19:00 76 18 119/73 84 L 08/27/19 18:50 79 08/27/19 18:30 78 17 136/71 98 08/27/19 18:20 98.6 F 80 18 136/71 99 08/27/19 17:43 75 08/27/19 17:32 75 08/27/19 17:30 75 15 128/66 99 08/27/19 17:11 22 08/27/19 17:10 74 16 128/66 100 08/27/19 16:31 97.9 F 76 21 126/75 98 Intake and Output 08/27/19 08/27/19 08/27/19 06:59 14:59 22:59 Other: Weight 157.397 kg General: non toxic, no distress, appears at stated age, very morbidly obese Derm: no unusual rashes/lesions no unusual ecchymoses, warm, dry Head: atraumatic, normocephalic, symmetric Eyes: EOMI, no lid lag, anicteric sclera, pupils equal round reactive to light ENT: Nose and ears atraumatic, no thrush, no pharyngeal erythema Neck: No thyromegaly, no cervical lymphadenopathy, trachea midline, supple Mouth: no lip lesion, mucus membranes moist Cardiovascular: S1S2 reg, no murmur, positive posterior tibial pulse bilateral, 2+ arturo LE edema to knees, capillary refill less than 2 seconds Lungs: Bilateral poor air entry with wheezing, no rales or ronchi appreciated, no accessory muscle use Abdominal: soft, nontender to palpation, no guarding, no appreciable organomegaly, normal bowel sounds Ext: no gross muscle atrophy, muscle strength 5 out of 5 in all 4 extremities grossly, no contractures, Neuro: CN II-XI grossly intact, light touch intact all 4 extremities, finger to nose within normal limits, Psych: Alert, oriented, appropriate affect Results CBC & Chem 7: 08/27/19 17:33 12 17:33 Labs: Abnormal Lab Results - Last 24 Hours (Table) 08/27/19 08/27/19 Range/Units 17:33 17:33 Creatinine 0.50 L (0.52-1.04) mg/dL Glucose 276 H (74-99) mg/dL Alkaline Phosphatase 137 H (38-126) U/L Troponin I 0.040 H* (0.000-0.034) ng/mL Albumin 3.4 L (3.5-5.0) g/dL Assessment and Plan Plan: Acute COPD exacerbation -C/w Solumedrol 60 mg q8h -C/w Duonebs RTC and prn -Supplemental oxygen -C/w Dulera Fluid overload with LE edema, arturo pleural effusions, and new cardiomegaly on CTA -Obtain repeat echocardiogram -Though the patient's proBNP is wnl, the patient's very high BMI could cause the BNP levels to be falsely low. Thereby it is of lesser diagnostic value. -Cardiac monitoring -Will start patient on Lasix 40 mg IVP q12h for now Chronic conditions: CAD s/p CABG, HTN, HLD -C/w home meds Type 2 DM -Start Levemir 50 U qhs (patient takes 50 U of basaglar at home. -ALEJANDRA with FS DVT prophylaxis -Heparin The patient is admitted with an anticipated greatere than 2 midnight stay for evaluation of acute COPD exacerbation CODE STATUS: Full Code Discussed with: Patient Anticipated discharge date: 2-[address]: Home A total of 35 minutes was spent on the care of this complex patient more than 50% of the time was spent in counseling and care coordination.
[2019-08-27] MEDS ORDERED: INSULIN DETEMIR (LEVEMIR) 100 UNIT/ML SYR SQ SCH (21:00)
[2019-08-27 22:13] LABS: Glucose,Whole Blood 345 mg/dL (75-99)
[2019-08-27] MEDS: FUROSEMIDE 10 MG/ML 4 ML VIAL IV SCH (22:15)
[2019-08-28] MEDS: methylPREDNISolone SOD SUCCI 125 MG/2 ML VIAL IV SCH ×2 (00:25→09:39)
[2019-08-28] MEDS: HEPARIN SODIUM,PORCINE 5,000 UNIT/ML 1 ML VIAL SQ SCH ×4 (00:27→23:57)
[2019-08-28] MEDS: IPRATROPIUM-ALBUTEROL 3 ML NEB INHALATION PRN ×2 (00:50→03:55)
[2019-08-28 06:17] LABS: Glucose,Whole Blood 343 mg/dL (75-99)
[2019-08-28] MEDS: PANTOPRAZOLE 40 MG TABLET PO SCH (06:30)
[2019-08-28] MEDS: INSULIN ASPART (NovoLOG) 100 UNIT/ML VIAL SQ SCH ×4 (06:30→21:18)
[2019-08-28] MEDS: HYDROcodone/APAP 5-325MG 1 EACH TAB PO PRN ×3 (06:32→23:57)
[2019-08-28] MEDS: SYMBICORT 80-4.5 MCG INHALER INHALATION SCH ×2 (08:30→21:00)
[2019-08-28] MEDS: IPRATROPIUM-ALBUTEROL 3 ML NEB INHALATION SCH ×4 (08:30→21:00)
[2019-08-28] MEDS ORDERED: CLOPIDOGREL 75 MG TAB PO SCH (09:00)
[2019-08-28] MEDS: METOPROLOL TARTRATE 25 MG TAB PO SCH ×3 (09:38→21:18)
[2019-08-28] MEDS: DILTIAZEM CD 180 MG CAP.ER.24H PO SCH (09:38)
[2019-08-28] MEDS: DIGOXIN 250 MCG TAB PO SCH (09:38)
[2019-08-28] MEDS: LOSARTAN 25 MG TAB PO SCH (09:38)
[2019-08-28] MEDS: ASPIRIN 81 MG PO SCH (09:38)
[2019-08-28] MEDS: FUROSEMIDE 10 MG/ML 4 ML VIAL IV SCH ×2 (09:39→21:17)
[2019-08-28] MEDS: NYSTATIN 100,000 UNIT/ML SUSP 500,000 UNIT/5 ML CUP PO SCH ×4 (09:39→21:18)
--- NOTE | 2019-08-28 09:55 | P.PN ---
Subjective Progress Note Date: 08/28/19 Principal diagnosis: Shortness of breath Patient is feeling about 40% better compared to when she came in. She was able to get up and go to the bathroom without any issues. No chest pain apart from her incision pain. No fevers or chills. No dizziness, no nausea or vomiting. Objective - Vital Signs Vital signs: Vital Signs Temp 97.9 F 08/28/19 08:00 Pulse 84 08/28/19 08:47 Resp 16 08/28/19 08:00 BP 121/62 08/28/19 08:00 Pulse Ox 93 L 08/28/19 08:00 Intake & Output 08/27/19 08/28/19 08/28/19 18:59 06:59 18:59 Output Total 700 Balance -700 Weight 157.397 kg 156.6 kg Output: Urine 700 Other: Voiding Method Toilet - Exam Constitutional: No acute distress, conversant, pleasant Eyes:Anicteric sclerae, moist conjunctiva, no lid-lag, PERRLA, ENMT: Oropharynx clear, no erythema, exudates Neck: Supple, FROM, no masses, or JVD, No carotid bruits, No thyromegaly Lungs: Clear to auscultation, Clear to percussion, Normal respiratory effort, no accessory muscle use Cardiovascular: Heart regular in rate and rhythm, No murmurs, gallops, or rubs, No peripheral edema Abdominal: Soft, Nontender, no guarding, rebound or rigidity, Normoactive bowel sounds, No hepatomegaly, No splenomegaly, No palpable mass Skin: Normal temperature, tone, texture, turgor, no induration, No subcutaneous nodules, No rash, lesions, No ulcers Extremities: No digital cyanosis, No clubbing, Pedal pulses intact and symmetrical, Radial pulses intact and symmetrical, No calf tenderness Psychiatric: Alert and oriented to person, place and time, appropriate affect, intact judgement Neuro: Muscles Strength 5/5 in all 4 extremities, Sensation to light touch grossly present throughout, Cranial nerves II-XII grossly intact, no focal sensory deficits - Labs CBC & Chem 7: 08/27/19 17:33 08/27/19 17:33 Labs: Abnormal Lab Results - Last 24 Hours (Table) 08/27/19 08/27/19 08/27/19 Range/Units 17:33 17:33 22:11 Creatinine 0.50 L (0.52-1.04) mg/dL Glucose 276 H (74-99) mg/dL POC Glucose (mg/dL) 345 H (75-99) mg/dL Alkaline Phosphatase 137 H (38-126) U/L Troponin I 0.040 H* (0.000-0.034) ng/mL Albumin 3.4 L (3.5-5.0) g/dL 08/28/19 Range/Units 06:16 Creatinine (0.52-1.04) mg/dL Glucose (74-99) mg/dL POC Glucose (mg/dL) 343 H (75-99) mg/dL Alkaline Phosphatase (38-126) U/L Troponin I (0.000-0.034) ng/mL Albumin (3.5-5.0) g/dL Assessment and Plan Plan: Acute COPD exacerbation -Wean down solumedrol to 40 mg q8h -C/w Duonebs RTC and prn -Supplemental oxygen -C/w Dulera Fluid overload with LE edema, arturo pleural effusions left more than right, and new cardiomegaly on CTA likely secondary to acute diastolic CHF exacerbation -Echocardiogram done, report pending -Telemetry -Continue Lasix 40 mg IVP q12h -Hold Plavix in anticipation for possible thoracentesis on the left side History of CAD, status post 4 vessel CABG No chest pain Troponin is elevated on arrival 0.04 Repeat stat Chronic conditions: HTN, HLD -C/w home meds Type 2 DM -Start Levemir 50 U qhs, patient takes 50 U of basaglar at home. -ALEJANDRA with FS DVT prophylaxis -Heparin CODE STATUS: Full Code Anticipated discharge date: 2-[address]: Home A total of 35 minutes was spent on the care of this complex patient more than 50% of the time was spent in counseling and care coordination.
--- NOTE | 2019-08-28 11:00 | ECHOF ---
Referral Reason:suspected CHF MEASUREMENTS -------- HEIGHT: 170.2 cm WEIGHT: 156.5 kg BP: 135/73 RVIDd: 3.3 cm (< 3.3) IVSd: 1.4 cm (0.6 - 1.1) LVIDd: 3.6 cm (3.9 - 5.3) LVPWd: 1.3 cm (0.6 - 1.1) IVSs: 2.0 cm LVIDs: 1.9 cm LVPWs: 1.5 cm LA Diam: 3.4 cm (2.7 - 3.8) Ao Diam: 3.7 cm (2.0 - 3.7) AV Cusp: 2.3 cm (1.5 - 2.6) MV EXCURSION: 18.742 mm (> 18.000) MV EF SLOPE: 83 mm/s (70 - 150) EPSS: 0.5 cm MV E Christophe: 0.79 m/s MV DecT: 139 ms MV A Christophe: 1.11 m/s MV E/A Ratio: 0.71 RAP: 5.00 mmHg RVSP: 31.53 mmHg FINDINGS -------- Resting tachycardia (HR>100bpm). This was a technically difficult study with suboptimal views. The left ventricular size is normal. There is moderate concentric left ventricular hypertrophy. L eft ventricular systolic function is hyperdynamic with an estimated EF of >70%. The right ventricle is mildly enlarged. The left atrial size is normal. The right atrium is normal in size. 5 ml of Lumason was utilized for enhancement of images. Interatrial and interventricular septum intact. The aortic valve is trileaflet and appears structurally normal. The mitral valve is normal. Mild tricuspid regurgitation present. Right ventricular systolic pressure is normal at < 35 mmHg. There is no pulmonic regurgitation present. The aortic root size is normal. Normal inferior vena cava with normal inspiratory collapse consistent with estimated right atrial pre ssure of 5 mmHg. The inferior vena cava is mildly dilated. There is no pericardial effusion. CONCLUSIONS -------- 1. Resting tachycardia (HR>100bpm). 2. This was a technically difficult study with suboptimal views. 3. The left ventricular size is normal. 4. There is moderate concentric left ventricular hypertrophy. 5. Left ventricular systolic function is hyperdynamic with an estimated EF of >70%. 6. The right ventricle is mildly enlarged. 7. The left atrial size is normal. 8. The right atrium is normal in size. 9. 5 ml of Lumason was utilized for enhancement of images. 10. Interatrial and interventricular septum intact. 11. The aortic valve is trileaflet and appears structurally normal. 12. The mitral valve is normal. 13. Mild tricuspid regurgitation present. 14. Right ventricular systolic pressure is normal at < 35 mmHg. 15. There is no pulmonic regurgitation present. 16. The aortic root size is normal. 17. Normal inferior vena cava with normal inspiratory collapse consistent with estimated right atrial pressure of 5 mmHg. 18. The inferior vena cava is mildly dilated. 19. There is no pericardial effusion. GYPSUM ROOFER: Saloni Hdez RDCS
[2019-08-28 11:43] LABS: Glucose,Whole Blood 435 mg/dL (75-99)
[2019-08-28] MEDS ORDERED: INSULIN ASPART (NovoLOG) 100 UNIT/ML VIAL SQ ONE (12:28)
[2019-08-28 16:58] LABS: Glucose,Whole Blood 422 mg/dL (75-99)
[2019-08-28] MEDS ORDERED: INSULIN REGULAR 100 UNIT/ML VIAL SQ ONE (18:00)
[2019-08-28] MEDS: methylPREDNISolone SOD SUCCI 40 MG/ML 1 ML VIAL IV SCH ×2 (18:29→23:57)
[2019-08-28 20:59] LABS: Glucose,Whole Blood 400 mg/dL (75-99)
[2019-08-28] MEDS ORDERED: INSULIN DETEMIR (LEVEMIR) 100 UNIT/ML SYR SQ SCH (21:00)
[2019-08-28] MEDS: MONTELUKAST 10 MG TAB PO SCH (21:18)
[2019-08-28] MEDS: LATANOPROST 0.005% OPHTH DROPS 2.5 ML BTL BOTH EYES SCH (21:18)
[2019-08-28] MEDS: ATORVASTATIN 80 MG TAB PO SCH (21:18)
[2019-08-29 06:03] LABS: Glucose,Whole Blood 414 mg/dL (75-99)
[2019-08-29] MEDS: INSULIN ASPART (NovoLOG) 100 UNIT/ML VIAL SQ SCH ×4 (06:38→21:12)
[2019-08-29] MEDS: PANTOPRAZOLE 40 MG TABLET PO SCH (06:38)
[2019-08-29 06:43] LABS: Basophils % (A) 0 %; Eosinophils % (A) 0 %; HCT 39.8 % (34.0-46.0); HGB 12.5 gm/dL (11.4-16.0); Hypochromasia Slight; Lymphocytes # (A) 0.8 k/uL (1.0-4.8); Lymphocytes % (A) 12 %; MCH 25.1 pg (25.0-35.0); MCHC 31.4 g/dL (31.0-37.0); MCV 79.9 fL (80.0-100.0); Mean Platelet Volume 8.4; Monocytes # (A) 0.2 k/uL (0-1.0); Monocytes % (A) 4 %; Neutrophils # (A) 5.4 k/uL (1.3-7.7); Neutrophils % (A) 84 %; Platelet Count 341 k/uL (150-450); RBC 4.98 m/uL (3.80-5.40); WBC 6.5 k/uL (3.8-10.6)
[2019-08-29 07:00] LABS: ALT 36 U/L (9-52); AST 15 U/L (14-36); African American GFR (CKD) >90 (>60 ml/min/1.73 sqM); Albumin 4.1 g/dL (3.5-5.0); Alkaline Phosphatase 167 U/L (38-126); Anion Gap 9 mmol/L; Blood Urea Nitrogen 14 mg/dL (7-17); Calcium 9.5 mg/dL (8.4-10.2); Carbon Dioxide 29 mmol/L (22-30); Chloride 97 mmol/L (98-107); Glucose 430 mg/dL (74-99); Magnesium 1.7 mg/dL (1.6-2.3); Non-African American GFR(CKD) >90 (>60 ml/min/1.73 sqM); Phosphorus 3.7 mg/dL (2.5-4.5); Potassium 4.3 mmol/L (3.5-5.1); Sodium 135 mmol/L (137-145); Total Bilirubin 0.6 mg/dL (0.2-1.3); Total Protein 7.7 g/dL (6.3-8.2)
[2019-08-29] MEDS: DIGOXIN 250 MCG TAB PO SCH (08:18)
[2019-08-29] MEDS: DILTIAZEM CD 180 MG CAP.ER.24H PO SCH (08:18)
[2019-08-29] MEDS: HYDROcodone/APAP 5-325MG 1 EACH TAB PO PRN ×2 (08:18→21:30)
[2019-08-29] MEDS: ASPIRIN 81 MG PO SCH (08:18)
[2019-08-29] MEDS: LOSARTAN 25 MG TAB PO SCH (08:19)
[2019-08-29] MEDS: METOPROLOL TARTRATE 25 MG TAB PO SCH ×3 (08:19→22:34)
[2019-08-29] MEDS: FUROSEMIDE 10 MG/ML 4 ML VIAL IV SCH (08:19)
[2019-08-29] MEDS: methylPREDNISolone SOD SUCCI 40 MG/ML 1 ML VIAL IV SCH (08:19)
[2019-08-29] MEDS: HEPARIN SODIUM,PORCINE 5,000 UNIT/ML 1 ML VIAL SQ SCH ×3 (08:19→23:41)
[2019-08-29] MEDS: NYSTATIN 100,000 UNIT/ML SUSP 500,000 UNIT/5 ML CUP PO SCH ×4 (08:20→22:34)
[2019-08-29] MEDS: IPRATROPIUM-ALBUTEROL 3 ML NEB INHALATION SCH ×2 (08:37→12:42)
[2019-08-29] MEDS: SYMBICORT 80-4.5 MCG INHALER INHALATION SCH (08:37)
--- NOTE | 2019-08-29 10:48 | P.PN ---
Subjective Principal diagnosis: Dyspnea Chart was reviewed patient was seen examined. This is a very pleasant 53-year-old female who was admitted 2 days ago with dyspnea and clinical signs of fluid overload. Initial imaging with a CT showed no presence of pulmonary embolism but did show recurrence of left-sided pleural effusion. Patient had history begins in June of this year when she underwent CABG. She was recovering well and she was eventually discharged home. She was admitted and of June with shortness of breath that was attributed to fluid overload and left-sided pleural effusion. At that time she was diuresed and felt better and since she had to be on aspirin and Plavix after CABg thoracentesis was postponed for outpatient. Eventually she underwent ultrasound-guided left-sided thoracentesis on 07/24/2019 with interventional radiology. At time 500 mL of serosanguineous fluid was removed. Pathology was negative for malignancy. Patient was maintained on oral Lasix but continued to have worsening of leg edema and increasing weight and orthopnea along with shortness of breath. Her Lasix has been eventually increased to 60 mg twice a day. Patient reports not a significant effect of Lasix and not the good diuresis as she is achieving here in the hospital with the IV form. Due to significant shortness of breath even at rest and orthopnea she came to emergency department. She denied any cough expectoration fever or malaise. She did have feeling of chest congestion and wheezing. In the emergency department CTA of the chest did not show pulmonary embolism but showed findings as mentioned above with pleural effusions. She had significant lower extremity edema. sHe was started on IV Lasix 40 mg twice a day and she was reporting significant diuresis and improvement in her respiratory status. Chart currently showing about -1.2 L fluid balance since admission. Her weight is down by 1 kg. She is still having significant lower extremity edema. She is currently up in the chair in no any distress on 2 LPM of oxygen which is her home dose. She hasn't tried yet to ambulate more in the hallways. She states that she's going to the bathroom and back today with some breathlessness still present. Echocardiogram performed yesterday showed preserved EF and severe LVH no significant pulmonary hypertension. Study was deemed to be difficult due to body habitus contacts had to be used. No significant valvular abnormalities. Probable diastolic dysfunction. No pericardial effusion. Her blood work is notable for significant hyperglycemia and mild hypoalbuminemia on admission. UA was not done on previous UA she had some proteinuria. Creatinine has been stable along with electrolytes. Objective - Vital Signs Vital signs: Vital Signs Temp 97.9 F 08/29/19 08:00 Pulse 84 08/29/19 08:50 Resp 18 08/29/19 08:00 BP 134/73 08/29/19 08:00 Pulse Ox 93 L 08/29/19 08:00 Intake & Output 08/28/19 08/29/19 08/29/19 18:59 06:59 18:59 Intake Total 240 240 240 Output Total 1000 800 Balance -760 -560 240 Weight 156.3 kg Intake: Oral 240 240 240 Output: Urine 1000 800 Other: Voiding Method Toilet - Constitutional General appearance: Present: cooperative, morbidly obese - EENT Eyes: Present: EOMI, PERRLA - Respiratory Details: Breathing is nonlabored. Breath sounds are diminished throughout no wheezing or rhonchi - Cardiovascular Rhythm: regular Heart sounds: normal: S1, S2 Abnormal Heart Sounds: Absent: rub - Gastrointestinal General gastrointestinal: Present: normal bowel sounds, soft. Absent: ten derness - Neurologic Neurologic: Present: CNII-XII intact. Absent: focal deficits - Musculoskeletal Musculoskeletal Comment(s): There is a 3+ lower extremities edema extending up to her thighs. There is no warmth or tenderness. Joints are not swollen - Labs CBC & Chem 7: 08/29/19 06:14 08/29/19 06:14 Labs: Abnormal Lab Results - Last 24 Hours (Table) 08/28/19 08/28/19 08/28/19 Range/Units 11:41 16:57 20:58 MCV (80.0-100.0) fL Lymphocytes # (1.0-4.8) k/uL Sodium (137-145) mmol/L Chloride (98-107) mmol/L Glucose (74-99) mg/dL POC Glucose (mg/dL) 435 H 422 H 400 H (75-99) mg/dL Alkaline Phosphatase (38-126) U/L 08/29/19 08/29/19 08/29/19 Range/Units 06:02 06:14 06:14 MCV 79.9 L (80.0-100.0) fL Lymphocytes # 0.8 L (1.0-4.8) k/uL Sodium 135 L (137-145) mmol/L Chloride 97 L (98-107) mmol/L Glucose 430 H (74-99) mg/dL POC Glucose (mg/dL) 414 H (75-99) mg/dL Alkaline Phosphatase 167 H (38-126) U/L - Imaging and Cardiology CT scan - chest: report reviewed Assessment and Plan Assessment: 1. Dyspnea This is felt to be multifactorial due to combination of asthma, fluid overload, pleural effusion and orbit obesity I do not have much clinical evidence today that she's having exacerbation of her asthma and much of the bronchospasm right now We will continue her inhaled corticosteroid and bronchodilators Discontinue systemic steroids, she has very significant hyperglycemia More concerning going to overt fluid overload and recurrence of left-sided pleural effusion that's deemed to be at least moderate on the CAT scan. Patient been maintained on IV Lasix with some improvement in respiratory status and decrease in overall body weight. Continue her IV Lasix will give her a dose of Zaroxolyn. Regarding her recurrent and persistent left-sided pleural effusion and overall dyspnea we will consult pulmonary service, patient is following with Dr. Arreguin's group. In view of her fluid overload I will also check her urine protein creatinine ratio to rule out the possibility of nephrotic syndrome. 2. Type 2 diabetes mellitus with stress hyperglycemia Continue current insulin coverage Discontinue systemic steroids 3. Coronary artery disease Status post CABG in 06/2019 Currently patient is on aspirin, statin, diltiazem and metoprolol We will continue this for now she seems largely asymptomatic Recent echo did not show any changes or pericardial effusion
[2019-08-29] MEDS ORDERED: METOLAZONE 2.5 MG TAB PO STA (10:49)
[2019-08-29 11:59] LABS: Glucose,Whole Blood 370 mg/dL (75-99)
[2019-08-29] MEDS: IPRATROPIUM-ALBUTEROL 3 ML NEB INHALATION PRN ×2 (16:27→21:08)
--- NOTE | 2019-08-29 16:37 | US ---
EXAMINATION TYPE: US venous doppler duplex LE DATE OF EXAM: 08/29/2019 4:16 PM COMPARISON: US 2017 and 2012 CLINICAL HISTORY: Swelling. Bilateral leg swelling, exam done portable. SIDE PERFORMED: Bilateral TECHNIQUE: The lower extremity deep venous system is examined utilizing real time linear array sonog be with graded compression, doppler sonography and color-flow sonography. VESSELS IMAGED: External Iliac Vein (EIV) Common Femoral Vein Deep Femoral Vein Greater Saphenous Vein * Femoral Vein Popliteal Vein Small Saphenous Vein * Proximal Calf Veins (* superficial vessels) Difficult and limited study due to obese patient Right Leg: Appears negative for DVT Left Leg: Appears negative for DVT IMPRESSION: . No evidence of deep venous thrombosis in both legs.
[2019-08-29 17:02] LABS: Glucose,Whole Blood 372 mg/dL (75-99)
[2019-08-29] MEDS: FUROSEMIDE 10 MG/ML 10 ML VIAL IV SCH ×2 (17:42→23:41)
--- NOTE | 2019-08-29 17:55 | CONS ---
CONSULTATION Jameson Condon is a 53-year-old female who presented to the ED at [facility] with increasing shortness of breath of about 4 to 5 days' duration. She had had some cough with wheezing and had swelling of her lower extremities. She had an increase of about 15 pounds of weight associated with this swelling. She denied any fever or chills. She subsequently was seen in the ED and admitted for further evaluation and management. PAST MEDICAL HISTORY: Her past medical history is positive for severe coronary artery disease, for which she underwent coronary artery bypass in June of 2019. She had a recurrent left-sided pleural effusion with some evidence at that time of left diaphragmatic paresis, history of diabetes mellitus, type 2, history of severe allergic asthma, for which she is on anti-IgE treatment with Xolair. She has a history of obesity. FAMILY HISTORY: Positive for severe asthma, diabetes mellitus in her daughter, colon cancer in her father, hypertension in her mother. SOCIAL HISTORY: The patient is a nonsmoker. Does not drink alcohol excessively. MEDICATIONS PRIOR TO ADMISSION: 1. Metformin. 2. Senna. 3. Phenergan. 4. Protonix. 5. Nystatin. 6. Multivitamin. 7. Singulair. 8. Dulera. 9. Lopressor. 10.Cozaar. 11.Claritin. 12.Latanoprost. 13.Insulin Lispro. 14.Insulin Glargine. 15.Harvard. 16.Lasix. 17.Cardizem CD. 18.Lanoxin. 19.Plavix. 20.Lipitor. 21.Aspirin. 22.Ventolin. 23.Acetaminophen. REVIEW OF SYSTEMS: Noncontributory other than what is described in the history of present illness and past medical history. PHYSICAL EXAMINATION: Her blood pressure is 138/67, respiratory rate of 18, pulse rate of 72, temperature 98.1. Oxygen saturation on 2 L by nasal cannula is 100%. She has been walking in her room with minimal shortness of breath and is able to complete a sentence at this time. HEENT reveals pupils that are equal with redundant tissue in the posterior pharynx. Chest revealed breath sounds in the left base with some dullness to percussion. There is prolonged exhalation but no clear wheeze. Cardiovascular system is in S1, S2. Abdomen is soft. There is 1+ to 2+ pedal edema. LABS: White count 6.5, hemoglobin 12.5, sodium 135, potassium 4.3, chloride 97, bicarb 29, BUN 14, creatinine 0.61, glucose 430. Input and output is showing a negative 1.3 L in the last 24 hours. IMAGING: Chest x-ray and CT scan were reviewed, which showed evidence of a small left pleural effusion with elevation of left hemidiaphragm. IMPRESSION AT THIS TIME: 1. Shortness of breath that is multifactorial, in part due to congestive heart failure with fluid retention. 2. 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 3. Asthma with exacerbation. 4. Obstructive sleep apnea. 5. Coronary artery disease, status post coronary artery bypass. At this point in time, would continue her on bronchodilators, aerosolized steroids. Discontinue her Symbicort and keep her only on aerosolized Pulmicort. Continue albuterol and ipratropium. Increase her Lasix to 60 mg IV push q.8 to attempt to achieve negative fluid balance. Depending on how she does, we shall make further changes to her care. She was counseled regarding her condition and this approach and has a fair understanding of our recommendations. MMODL / IJN: [id number] /
[2019-08-29 21:03] LABS: Glucose,Whole Blood 417 mg/dL (75-99)
[2019-08-29] MEDS: BUDESONIDE 0.5 MG/2 ML NEBU INHALATION SCH (21:08)
[2019-08-29] MEDS: INSULIN DETEMIR (LEVEMIR) 100 UNIT/ML SYR SQ SCH (21:12)
[2019-08-29 21:16] LABS: Appearance,Urine Clear (Clear); Bilirubin,Urine Negative (Negative); Blood,Urine Negative (Negative); Color,Urine Light Yellow; Glucose,Urine (UA) 3+ (Negative); Ketones,Urine Negative (Negative); Leukocyte Esterase,Urine Negative (Negative); Nitrite,Urine Negative (Negative); PH, Urine 6.5 (5.0-8.0); Protein,Urine Negative (Negative); Specific Gravity,Urine 1.007 (1.001-1.035); Urobilinogen,Urine <2.0 mg/dL (<2.0)
[2019-08-29 21:26] LABS: Protein/Creatinine Ratio,Urine 0.8
[2019-08-29] MEDS: ATORVASTATIN 80 MG TAB PO SCH (21:29)
[2019-08-29] MEDS: LATANOPROST 0.005% OPHTH DROPS 2.5 ML BTL BOTH EYES SCH (21:30)
[2019-08-29] MEDS: MONTELUKAST 10 MG TAB PO SCH (21:30)
[2019-08-29 22:06] LABS: Glucose,Whole Blood 392 mg/dL (75-99)
[2019-08-29] MEDS: SENNOSIDES-DOCUSATE SODIUM 1 EACH TAB PO PRN (22:34)
[2019-08-30 06:48] LABS: Glucose,Whole Blood 375 mg/dL (75-99)
[2019-08-30 08:09] LABS: African American GFR (CKD) >90 (>60 ml/min/1.73 sqM); Anion Gap 9 mmol/L; Blood Urea Nitrogen 19 mg/dL (7-17); Calcium 9.2 mg/dL (8.4-10.2); Carbon Dioxide 35 mmol/L (22-30); Chloride 91 mmol/L (98-107); Glucose 386 mg/dL (74-99); Magnesium 1.7 mg/dL (1.6-2.3); Non-African American GFR(CKD) >90 (>60 ml/min/1.73 sqM); Potassium 3.6 mmol/L (3.5-5.1); Sodium 135 mmol/L (137-145)
[2019-08-30] MEDS: BUDESONIDE 0.5 MG/2 ML NEBU INHALATION SCH ×2 (08:20→21:50)
[2019-08-30] MEDS: IPRATROPIUM-ALBUTEROL 3 ML NEB INHALATION PRN ×4 (08:20→21:50)
[2019-08-30] MEDS: HEPARIN SODIUM,PORCINE 5,000 UNIT/ML 1 ML VIAL SQ SCH ×3 (08:24→23:52)
[2019-08-30] MEDS: INSULIN ASPART (NovoLOG) 100 UNIT/ML VIAL SQ SCH ×6 (08:24→22:20)
[2019-08-30 08:25] LABS: Digoxin 0.7 ng/mL
[2019-08-30] MEDS: METOPROLOL TARTRATE 25 MG TAB PO SCH ×3 (08:47→20:55)
[2019-08-30] MEDS: CLOPIDOGREL 75 MG TAB PO SCH (08:47)
[2019-08-30] MEDS: NYSTATIN 100,000 UNIT/ML SUSP 500,000 UNIT/5 ML CUP PO SCH ×4 (08:47→20:50)
[2019-08-30] MEDS: FUROSEMIDE 10 MG/ML 10 ML VIAL IV SCH ×3 (08:47→23:53)
[2019-08-30] MEDS: DIGOXIN 250 MCG TAB PO SCH (08:47)
[2019-08-30] MEDS: ASPIRIN 81 MG PO SCH (08:47)
[2019-08-30] MEDS: LOSARTAN 25 MG TAB PO SCH (08:47)
[2019-08-30] MEDS: PANTOPRAZOLE 40 MG TABLET PO SCH (08:47)
--- NOTE | 2019-08-30 10:13 | PN ---
PROGRESS NOTE DATE OF SERVICE: 08/30/2019 Patient is a 53-year-old female who is seen sitting up at the bedside is awake, alert. Weight is down 2 kg. Patient does feel better. States breathing has improved significantly. Patient is afebrile, hemodynamically stable, in no acute distress. PHYSICAL EXAM: VITAL SIGNS: Temperature is 97.3, heart rate is 80, respiratory rate is 15, blood pressure is 158/80, O2 saturations 95% on room air. HEENT. Head is normocephalic, atraumatic. Neck is supple. Trachea is midline. LUNGS: With diminished bases bilaterally. HEART: S1, S2 are heard. Not tachycardic. ABDOMEN: Soft. Bowel sounds are positive. EXTREMITIES: With trace edema bilaterally. NEUROLOGIC: Patient is awake, alert. LABS: Sodium is 135, potassium is 3.6, chloride is 91, CO2 is 35, anion gap is 9, BUN is 19, creatinine 0.71, glucose is 386, calcium is 9.2, magnesium is 1.7, digoxin is 0.7. Imaging of venous Doppler study is negative for DVT. IMPRESSION: 1. Shortness of breath is multifactorial in part due to congestive heart failure with fluid retention. 2. 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 3. Asthma with exacerbation. 4. Obstructive sleep apnea. 5. Coronary artery disease status post coronary artery bypass. PLAN: Continue current medications which have been reviewed with bronchodilators and aerosol steroids. Continue diuresis. Continue to maintain negative fluid balance. Continue GI and DVT prophylaxis and we will follow patient closely with you making further changes as necessary. MMODL / IJN: [id number] /
[2019-08-30] MEDS: DILTIAZEM CD 180 MG CAP.ER.24H PO SCH (10:37)
[2019-08-30 11:16] LABS: Glucose,Whole Blood 391 mg/dL (75-99)
[2019-08-30] MEDS ORDERED: METOLAZONE 2.5 MG TAB PO STA (12:47)
--- NOTE | 2019-08-30 15:55 | P.PN ---
Subjective Progress Note Date: 08/30/19 Principal diagnosis: CHF exacerbation, pleural effusion Patient was seen and examined. No acute events overnight. Patient reports significant improvement in her breathing since admission. Patient states that she is producing a large amount of urine at this time. She has started to produce negative fluid balance. Patient denies any chest pain or palpitations. No nausea or vomiting. No fever or chills. Objective - Vital Signs Vital signs: Vital Signs Temp 97.9 F 08/30/19 14:15 Pulse 71 08/30/19 14:15 Resp 15 08/30/19 14:15 BP 104/63 08/30/19 14:15 Pulse Ox 100 08/30/19 14:15 Intake & Output 08/29/19 08/30/19 08/30/19 18:59 06:59 18:59 Intake Total 720 1320 Output Total 3550 Balance 720 -2230 Weight 154.6 kg Intake: Oral 720 1320 Output: Urine 3550 Other: Voiding Method Toilet # Voids 1 2 - Exam General: [non toxic], [no distress], [appears at stated age] Derm: [warm], [dry] Head: [atraumatic], [normocephalic], [symmetric] Eyes: [EOMI], [no lid lag], [anicteric sclera] Mouth: [no lip lesion], [mucus membranes moist] Cardiovascular: [S1S2 reg], [no murmur], [positive posterior tibial pulse bilateral], Lungs: [Decreased breath sounds bilateral], [no rhonchi, no rales] , [no accessory muscle use] Abdominal: [soft], [ nontender to palpation], [no guarding], [no appreciable organomegaly] Ext: [no gross muscle atrophy], [2+ pitting lower extremity edema], [no contractures] Neuro: [no focal neuro deficits] Psych: [Alert], [oriented], [appropriate affect] - Labs CBC & Chem 7: 08/29/19 06:14 08/30/19 07:10 Labs: Abnormal Lab Results - Last 24 Hours (Table) 08/29/19 08/29/19 08/29/19 Range/Units 17:00 21:02 21:05 Sodium (137-145) mmol/L Chloride (98-107) mmol/L Carbon Dioxide (22-30) mmol/L BUN (7-17) mg/dL Glucose (74-99) mg/dL POC Glucose (mg/dL) 372 H 417 H (75-99) mg/dL Urine Glucose (UA) 3+ H (Negative) 08/29/19 08/30/19 08/30/19 Range/Units 22:03 06:47 07:10 Sodium 135 L (137-145) mmol/L Chloride 91 L (98-107) mmol/L Carbon Dioxide 35 H (22-30) mmol/L BUN 19 H (7-17) mg/dL Glucose 386 H (74-99) mg/dL POC Glucose (mg/dL) 392 H 375 H (75-99) mg/dL Urine Glucose (UA) (Negative) 08/30/19 Range/Units 11:14 Sodium (137-145) mmol/L Chloride (98-107) mmol/L Carbon Dioxide (22-30) mmol/L BUN (7-17) mg/dL Glucose (74-99) mg/dL POC Glucose (mg/dL) 391 H (75-99) mg/dL Urine Glucose (UA) (Negative) Assessment and Plan Assessment: Assessment and Plan Shortness of breath likely related to pleural effusion and possible diastolic CHF exacerbation Troponin elevation Hypochloremic metabolic alkalosis Elevated BUN Diabetes mellitus with hypoglycemia likely due to steroid use Asthma not in acute exacerbation Hypertension CAD with recent CABG As seen on chest x-ray and CTA chest. No PE seen on CTA chest. Echocardiogram shows normal EF with moderate concentric LVH. Plans: Follow pulmonology recommendations. Continue Lasix 60 mg IV 3 times a day. One time dose of Zaroxolyn today. Strict intake and output. Daily weights. Repeat chest x-ray tomorrow morning. Troponin 0.04, 0.02 with EKG showing normal sinus rhythm. Likely troponin leak from CHF. Plans: Acute coronary syndrome ruled out. Nothing further to do. HCO3 35 chloride 91. Likely due to aggressive diuresis. Plans: Repeat BMP tomorrow morning. BUN 19. Likely due to aggressive diuresis. Plans: Encourage hydration by mouth. Repeat BMP tomorrow morning. Avoid nephrotoxins. [id number] glucose 391. Likely due to IV steroid use. Plans: Solu-Medrol discontinued yesterday. Continue Levemir 50 units at bedtime. Start NovoLog 10 units 3 times a day. Insulin sliding-scale. Regular Accu-Cheks. Hypoglycemic precautions. Plans: DuoNeb as needed for shortness of breath and wheezing. Discontinue Solu- Medrol. Continue Pulmicort. Continue Singulair. Pulmonology following. BP 104/63. Plans: Continue diltiazem, losartan, metoprolol. Monitor vitals, adjust medications as necessary. Plans: Continue aspirin and Lipitor. Continue Plavix. Continue beta gregorio. [Patient admitted for recurrent pleural effusion and possible CHF exacerbation. Currently being diuresed with Lasix IV. She is pending clinical improvement. Likely DC in 1-2 days.]
[2019-08-30 16:42] LABS: Glucose,Whole Blood 289 mg/dL (75-99)
[2019-08-30] MEDS: LATANOPROST 0.005% OPHTH DROPS 2.5 ML BTL BOTH EYES SCH (20:50)
[2019-08-30] MEDS: MONTELUKAST 10 MG TAB PO SCH (20:51)
[2019-08-30] MEDS: ATORVASTATIN 80 MG TAB PO SCH (20:51)
[2019-08-30] MEDS: HYDROcodone/APAP 5-325MG 1 EACH TAB PO PRN (21:05)
[2019-08-30 22:18] LABS: Glucose,Whole Blood 230 mg/dL (75-99)
[2019-08-30] MEDS: INSULIN DETEMIR (LEVEMIR) 100 UNIT/ML SYR SQ SCH (22:20)
[2019-08-30] MEDS: SENNOSIDES-DOCUSATE SODIUM 1 EACH TAB PO PRN (22:23)
[2019-08-31 03:23] LABS: Glucose,Whole Blood 171 mg/dL (75-99)
--- NOTE | 2019-08-31 07:06 | PN ---
PROGRESS NOTE She was seen on 08/31/2019. She has been hemodynamically stable. She is less short of breath. She is wearing early this morning. PHYSICAL EXAMINATION: Her vitals are stable. She is afebrile. Her chest is relatively clear. Cardiovascular system reveals an S1, S2. Abdomen is soft. With 1+ pedal edema. IMPRESSION AT THIS TIME: 1. Congestive heart failure. 2. Left diaphragmatic hemiparalysis. 3. Coronary artery disease, status post coronary artery bypass grafting. 4. Severe asthma, which seems to be relatively well controlled. Continue on the current medications, switch her to oral Lasix and agree with possible discharge planning today with close outpatient followup. She was counseled regarding her condition and this approach and I would continue other medications, bronchodilators, aerosolized steroids, insulin as well as Singulair at this time. Her prognosis is fair. MMELVISL / FABIOLAN: [id number] /
[2019-08-31 07:22] LABS: Glucose,Whole Blood 230 mg/dL (75-99)
[2019-08-31] MEDS: IPRATROPIUM-ALBUTEROL 3 ML NEB INHALATION PRN ×2 (07:32→12:14)
[2019-08-31] MEDS: BUDESONIDE 0.5 MG/2 ML NEBU INHALATION SCH (07:32)
[2019-08-31] MEDS: INSULIN ASPART (NovoLOG) 100 UNIT/ML VIAL SQ SCH ×4 (08:08→12:36)
[2019-08-31] MEDS: CLOPIDOGREL 75 MG TAB PO SCH (08:09)
[2019-08-31] MEDS: ASPIRIN 81 MG PO SCH (08:09)
[2019-08-31] MEDS: PANTOPRAZOLE 40 MG TABLET PO SCH (08:09)
[2019-08-31] MEDS: DIGOXIN 250 MCG TAB PO SCH (08:09)
[2019-08-31] MEDS: LOSARTAN 25 MG TAB PO SCH (08:09)
[2019-08-31] MEDS: HEPARIN SODIUM,PORCINE 5,000 UNIT/ML 1 ML VIAL SQ SCH (08:09)
[2019-08-31] MEDS: DILTIAZEM CD 180 MG CAP.ER.24H PO SCH (08:09)
[2019-08-31] MEDS: METOPROLOL TARTRATE 25 MG TAB PO SCH (08:13)
--- NOTE | 2019-08-31 09:23 | XR ---
EXAMINATION TYPE: XR chest 1V portable DATE OF EXAM: 08/31/2019 COMPARISON: Prior chest x-ray 08/27/2019 HISTORY: Pleural effusion TECHNIQUE: Single frontal view of the chest is obtained. FINDINGS: There is retrocardiac density with obscured left hemidiaphragm. Patient is post median renu rnotomy, heart is likely enlarged. No evident pneumothorax. Perihilar vascular indistinctness is note d. IMPRESSION: Left lower lobe atelectasis versus pneumonia, effusion. There may be a component of inte rstitial edema. Suspect cardiomegaly.
[2019-08-31] MEDS: NYSTATIN 100,000 UNIT/ML SUSP 500,000 UNIT/5 ML CUP PO SCH ×2 (09:56→13:31)
[2019-08-31] MEDS: FUROSEMIDE 10 MG/ML 10 ML VIAL IV SCH (11:11)
[2019-08-31 11:15] LABS: Glucose,Whole Blood 209 mg/dL (75-99)
[2019-08-31 12:26] VITALS: PULSE 72
--- NOTE | 2019-08-31 12:27 | P.DS ---
Providers Date of admission: 08/27/19 18:53 Expected date of discharge: 08/31/19 Attending physician: Dhara Otoole DO Consults: 08/29/19 10:29 Consult Physician Routine Consulting Provider: Raymond Delvalle Consult Reason/Comments: Dyspnea, peural effusion Do you want consulting provider notified?: Yes Primary care physician: [facility] Course: The patient is a 53 yo F with a PMH of CAD s/p CABG 06/22/19, Type 2 DM, HTN, HLD, VU (on CPAP), COPD (on 2L NC continuous oxygen at home), follows w/ Dr Arreguin in the pulmonary/sleep clinic who presented to the ED w/ complaints of wheezing and SOB. She reports her symptoms started 3-4 days ago and gradually worsened despite her regular use of her inhalers. She also noted that her legs seemed to have been more swollen than usual. She denied any recent changes in her diet or excessive fluid intake. She further denied LE pain or erythema, cough, chest pain, nausea, vomiting, palpitations, dizziness, orthopnea, or PND. She reports compliance with all her medications at home. The patient underwent an extensive evaluation in the ED w/ Chest CTA showing new arturo pleural effusions with L>R along with increased size of the heart as compared to prior. No PE was noted with a 1.5 cm pretracheal lymph node visualized. EKG revealed NSR @ [address]-T wave changes noted. Laboratory evaluation revealed a Troponin level of 0.04, BNP 176, WBC 4.5, Hgb 12.3, BUN 7, Cr 0.5, Na 137, Cr 3.9, and CO2 30. With regard to her COPD, patient was initially started on DuoNeb scheduled and as needed for shortness of breath or wheezing along with Solu-Medrol IV. She was also continued on Pulmicort and Singulair. Pulmonology was consulted for management of COPD and it was thought that her shortness of breath was likely related to pleural effusion and pulmonary edema rather than COPD exacerbation. Solu-Medrol was discontinued due to elevated blood glucose. She was diuresed with 60 mg IV Lasix times a day and given 2 doses of Zaroxolyn. Patient had a negative fluid balance during her hospitalization. She had also dropped from 157 kg 154 kg at the time of discharge. Chest x-ray was repeated prior to disc harge which showed left lower lobe atelectasis versus pneumonia versus effusion with component of interstitial edema. Pulmonology recommended switching patient from Lasix IV to by mouth. Patient did have an elevated troponin of 0.04 on admission which trended to 0.02 with EKG showing normal sinus rhythm. Patient was seen and examined prior to discharge. No acute events overnight. Patient reports significant improvement in her breathing since admission. States that her breathing is back to baseline. On 2 L home O2. She denies any chest pain, shortness of breath or palpitations. No nausea or vomiting. No fever or chills. Requesting to go home today. General: [non toxic], [no distress], [appears at stated age] Derm: [warm], [dry] Head: [atraumatic], [normocephalic], [symmetric] Eyes: [EOMI], [no lid lag], [anicteric sclera] Mouth: [no lip lesion], [mucus membranes moist] Cardiovascular: [S1S2 reg], [no murmur], [positive posterior tibial pulse bilateral], Lungs: [Decreased breath sounds bilateral], [no rhonchi, no rales] , [no accessory muscle use] Abdominal: [soft], [ nontender to palpation], [no guarding], [no appreciable organomegaly] Ext: [no gross muscle atrophy], [1 + pitting lower extremity edema], [no contractures] Neuro: [no focal neuro deficits] Psych: [Alert], [oriented], [appropriate affect] Assessment and Plan Shortness of breath likely related to pleural effusion and possible diastolic CHF exacerbation Troponin elevation Hypochloremic metabolic alkalosis Elevated BUN Diabetes mellitus with hypoglycemia likely due to steroid use Asthma not in acute exacerbation Hypertension CAD with recent CABG As seen on chest x-ray and CTA chest. No PE seen on CTA chest. Echocardiogram shows normal EF with moderate concentric LVH. Chest x-ray this morning shows stable findings. Plans: Follow pulmonology recommendations. Transition Lasix from IV to oral. Strict intake and output. Daily weights. Troponin 0.04, 0.02 with EKG showing normal sinus rhythm. Likely troponin leak from CHF. Plans: Acute coronary syndrome ruled out. Nothing further to do. HCO3 35 chloride 91. Likely due to aggressive diuresis. Plans: Repeat BMP in the outpatient setting. BUN 19. Likely due to aggressive diuresis. Plans: Encourage hydration by mouth. Repeat BMP in the outpatient setting. Avoid nephrotoxins. [id number]-[id number] glucose 209. Likely due to IV steroid use. Plans: Solu-Medrol discontinued yesterday. Continue Levemir 50 units at bedtime. Continue NovoLog 10 units 3 times a day. Insulin sliding-scale. Regular Accu-Cheks. Hypoglycemic precautions. Plans: DuoNeb as needed for shortness of breath and wheezing. Discontinue Solu- Medrol. Continue Pulmicort. Continue Singulair. Pulmonology following. BP 121/75. Plans: Continue diltiazem, losartan, metoprolol. Monitor vitals, adjust medications as necessary. Plans: Continue aspirin and Lipitor. Continue Plavix. Continue beta gregorio. [Patient admitted for recurrent pleural effusion and possible CHF exacerbation. Has shown considerable improvement. Cleared by pulmonology for discharge. Patient instructed Lasix 3 times a day over the next week, followed by twice a day dosing. Patient verbalized understanding of the plan. Follow up with pulmonology within 1 week.] Pertinent Studies: Chest x-ray, chest CTA, echocardiogram, venous duplex Patient Condition at Discharge: Stable Plan - Discharge Summary Discharge Rx Participant: No New Discharge Prescriptions: Continue Mometasone/Formoterol [Dulera 100 Mcg/5 Mcg Inhaler] 2 puff INHALATION RT-BID Albuterol Nebulized [Ventolin Nebulized] 2.5 mg INHALATION RT-Q4H PRN PRN Reason: Shortness Of Breath Latanoprost/Pf [Latanoprost 0.005% Eye Drop] 1 drop BOTH EYES HS Diltiazem Cd [Cardizem CD] 180 mg PO DAILY #30 cap.er.24h Loratadine [Claritin] 10 mg PO DAILY #30 tab Losartan [Cozaar] 25 mg PO Q24H #30 tab Digoxin [Lanoxin] 250 mcg PO DAILY #30 tab Nystatin 100,000 Unit/ml Susp [Mycostatin Oral Susp] 500,000 unit PO QID #30 cup Pantoprazole [Protonix] 40 mg PO AC-BRKFST #30 tablet.dr Acetaminophen Tab [Tylenol] 1,000 mg PO Q6HR PRN #120 tab PRN Reason: Fever and/ or Mild Pain Atorvastatin [Lipitor] 80 mg PO HS 30 Days #30 tab Multivitamins, Thera [Multivitamin (formulary)] 1 tab PO DAILY #30 tab Montelukast Sodium [Singulair] 10 mg PO HS #30 tab Sennosides-Docusate Sodium [Senokot-S] 2 tab PO HS PRN PRN Reason: Constipation Insulin Glargine,Hum.rec.anlog [Basaglar Kwikpen U-100] 50 unit SQ HS HYDROcodone/APAP 5-325MG [[place] 5-325] 1 tab PO Q4HR PRN PRN Reason: Pain Insulin Lispro [Admelog Solostar] See Protocol SQ AC-TID Aspirin 81 mg PO DAILY #30 chew Clopidogrel [Plavix] 75 mg PO DAILY Metoprolol Tartrate [Lopressor] 75 mg PO TID metFORMIN HCL 500 mg PO BID Furosemide [Lasix] 60 mg PO BID #90 tab Discontinued Promethazine [Phenergan] 12.5 mg PO Q6HR PRN PRN Reason: Nausea Discharge Medication List Mometasone/Formoterol [Dulera 100 Mcg/5 Mcg Inhaler] 2 puff INHALATION RT-BID 07/26/18 [History] Albuterol Nebulized [Ventolin Nebulized] 2.5 mg INHALATION RT-Q4H PRN 03/31/19 [History] Latanoprost/Pf [Latanoprost 0.005% Eye Drop] 1 drop BOTH EYES HS 06/12/19 [History] Acetaminophen Tab [Tylenol] 1,000 mg PO Q6HR PRN #120 tab 06/29/19 [Rx] Atorvastatin [Lipitor] 80 mg PO HS 30 Days #30 tab 06/29/19 [Rx] Digoxin [Lanoxin] 250 mcg PO DAILY #30 tab 06/29/19 [Rx] Diltiazem Cd [Cardizem CD] 180 mg PO DAILY #30 cap.er.24h 06/29/19 [Rx] Loratadine [Claritin] 10 mg PO DAILY #30 tab 06/29/19 [Rx] Losartan [Cozaar] 25 mg PO Q24H #30 tab 06/29/19 [Rx] Montelukast Sodium [Singulair] 10 mg PO HS #30 tab 06/29/19 [Rx] Multivitamins, Thera [Multivitamin (formulary)] 1 tab PO DAILY #30 tab 06/29/19 [Rx] Nystatin 100,000 Unit/ml Susp [Mycostatin Oral Susp] 500,000 unit PO QID #30 cup 06/29/19 [Rx] Pantoprazole [Protonix] 40 mg PO AC-BRKFST #30 tablet. 06/29/19 [Rx] HYDROcodone/APAP 5-325MG [[place] 5-325] 1 tab PO Q4HR PRN 07/16/19 [History] Insulin Glargine,Hum.rec.anlog [Basaglar Kwikpen U-100] 50 unit SQ HS 07/16/19 [History] Insulin Lispro [Admelog Solostar] See Protocol SQ AC-TID 07/16/19 [History] Sennosides-Docusate Sodium [Senokot-S] 2 tab PO HS PRN 07/16/19 [History] Aspirin 81 mg PO DAILY #30 chew 07/18/19 [Rx] Clopidogrel [Plavix] 75 mg PO DAILY 07/23/19 [History] Metoprolol Tartrate [Lopressor] 75 mg PO TID 08/27/19 [History] metFORMIN HCL 500 mg PO BID 08/27/19 [History] Furosemide [Lasix] 60 mg PO BID #90 tab 08/31/19 [Rx] Follow up Appointment(s)/Referral(s): Juany Moraes NPC [Nurse Practitioner] - 09/05/19 9:30 am (Tuesday) [facility], [NON-STAFF] - As Needed Raymond Delvalle MD [STAFF PHYSICIAN] - 1 Week Ambulatory/Diagnostic Orders: Basic Metabolic Panel [LAB.AMB] Time Frame: 3 Days, Location: None Selected XR chest 2V [RAD.AMB] Time Frame: 3 Days, Location: None Selected Activity/Diet/Wound Care/Special Instructions: Diet: Heart healthy, low-salt Follow-up PCP within 3 days of discharge. Follow-up pulmonology within 1 week of discharge. Repeat BMP within 3 days. Repeat chest x-ray within 3 days. Follow-up results with your farm planner Dr. Delvalle. Discharge Disposition: HOME SELF-CARE
[2019-08-31 13:48] VITALS: BP 108/68; RESP 15; TEMP 98.2
== END 2019-08-31 16:39 | disposition home or self-care (01) | DRG 292 ==
LOC: EC 16:05 → 3SCARD 18:53 → 4SSUR 08-29 19:01
PROVIDERS: ADMIT Internal Medicine; ATTEND Internal Medicine
PROC: 5A09357 Assistance with Respiratory Ventilation, Less than 24 Consecutive Hours, Continuous Positive Airway Pressure (ICD-10-PCS; principal; 2019-08-28)
DX: I11.0 Hypertensive heart disease with heart failure (principal); E87.3 Alkalosis; J96.11 Chronic respiratory failure with hypoxia; I50.33 Acute on chronic diastolic (congestive) heart failure; E11.319 Type 2 diabetes mellitus with unspecified diabetic retinopathy without macular edema; E88.09 Other disorders of plasma-protein metabolism, not elsewhere classified; J98.6 Disorders of diaphragm; E87.8 Other disorders of electrolyte and fluid balance, not elsewhere classified; E11.65 Type 2 diabetes mellitus with hyperglycemia; E66.9 Obesity, unspecified; E78.5 Hyperlipidemia, unspecified; G47.33 Obstructive sleep apnea (adult) (pediatric); I25.10 Atherosclerotic heart disease of native coronary artery without angina pectoris; T38.0X5A Adverse effect of glucocorticoids and synthetic analogues, initial encounter; G89.29 Other chronic pain; H40.9 Unspecified glaucoma; R79.89 Other specified abnormal findings of blood chemistry; J44.9 Chronic obstructive pulmonary disease, unspecified; Z79.02 Long term (current) use of antithrombotics/antiplatelets; Z79.4 Long term (current) use of insulin; Z79.82 Long term (current) use of aspirin; Z79.899 Other long term (current) drug therapy; Z79.51 Long term (current) use of inhaled steroids; Z95.1 Presence of aortocoronary bypass graft; Z99.81 Dependence on supplemental oxygen; Z91.048 Other nonmedicinal substance allergy status; Z86.718 Personal history of other venous thrombosis and embolism; Z80.0 Family history of malignant neoplasm of digestive organs; Z82.49 Family history of ischemic heart disease and other diseases of the circulatory system; Z83.3 Family history of diabetes mellitus
CPT/HCPCS: 36415; 71045; 71046; 71275; 80048; 80053; 80162; 81003; 82550; 82570; 83735; 83880; 84100; 84156; 84484; 85025; 85610; 85730; 93005; 93306; 93970; 94640; 94660; 94760; 96372; 96374; 96375; 96376; 99285

== ENCOUNTER → 2019-09-06 | Outpatient (CLI) | payer OTHER ==
--- NOTE | 2019-09-06 15:01 | XR ---
EXAMINATION TYPE: XR chest 2V DATE OF EXAM: 09/06/2019 COMPARISON: Prior chest x-ray dated 08/31/2019 HISTORY: Shortness of breath, abnormal chest x-ray TECHNIQUE: Frontal and lateral views of the chest are obtained. FINDINGS: The heart is likely enlarged, patient is post median sternotomy and atrial appendage clipp ing. The left heart border and left hemidiaphragm are obscured, increased opacity persists. No eviden t pneumothorax. Pulmonary vascularity and wilfred within normal limits. IMPRESSION: Left pleural effusion and associated atelectasis, correlate to exclude pneumonia. Cardio megaly. Follow-up recommended.
[2019-09-06 19:41] LABS: African American GFR (CKD) 96.2 (60.0-200.0); Anion Gap 9.7 mmol/L (4.00-12.00); Calcium 8.9 mg/dL (8.7-10.3); Carbon Dioxide 30.3 mmol/L (21.6-31.8); Potassium 3.5 mmol/L (3.5-5.5)
== END | disposition home or self-care (01) ==
LOC: LABWHC1 12:20
PROVIDERS: ATTEND Family Medicine
DX: J90 Pleural effusion, not elsewhere classified (principal); J98.11 Atelectasis; I51.7 Cardiomegaly; E87.3 Alkalosis
CPT/HCPCS: 36415; 71046; 80048

== ENCOUNTER → 2020-08-06 | Outpatient (CLI) | payer OTHER ==
[2020-08-06 16:41] VITALS: BP 123/76; PULSE 81; RESP 20; TEMP 98.4
--- NOTE | 2020-08-06 17:10 | P.HPBAR ---
Bariatric H&P - History & Physicial H&P Date: 08/06/20 History & Physicial: Visit/CC: initial visit Patient initial contact: Initial weight: Initial weight in pounds: Height: Initial BMI: Last weight: Current weight: Current weight in pounds: Current BMI: [place] body weight (based on NIH guidelines): Excess body weight loss: The patient is a 54 year-old F who presents for Bariatric Assessment. DATE OF SERVICE: 08/06/2020 REASON FOR CONSULTATION: Initial bariatric evaluation. HISTORY OF PRESENT ILLNESS: Jameson Condon is a 54-year-old female who comes with lifelong morbid obesity. She is looking into the sleeve gastrectomy. Her highest weight is 372 pounds. She has tried cut down food portions and eat skinless and got rid of fatty greasy foods. She lost weight as a child but gained weight with children. She has lifetime santiago with weight loss. Her mother has troubles with her weight. Her daughter had weight loss surgery. She has her gallbladder. She denies abdominal pain. She has 9 children. She has two sets of twins. She sees Dr. Delvalle for pulmonary for oxygen needs. She had heart surgery last June 2019. Dr. JAMES Delvalle is her hobbing machine operator. She is in need of cardiology re-hab. She had her colonoscopy without polyps. No reports of stomach or esophageal cancer. She denies blood clots to the lung. She had a PICC line in the arm for superficial venous thrombosis. She denies chronic diarrhea. She has no surgeries to the belly. No reports of back pain. No reports of hip pain. She has occasional knee pain. She wants to lose 120 pounds. She presents to me first time in consultation. At height of 5 feet 5.5 inches, her ideal body weight is 149 pounds. Her highest weight is 372 pounds, her BMI 61.1. She comes in 359 pounds. Her body mass index is 59.0. She is 210 pounds overweight. PAST MEDICAL HISTORY: 1. Morbid obesity due to excess calories 2. Body mass index of 61.1, initial 3. Asthma 4. Glaucoma 5. Diabetes type II insulin dependent 6. Coronary artery disease 7. Hypertensive heart disease 8. Hyperlipidemia 9. Gastroesophageal reflux disease 10. Arrhythmia 11. Obstructive sleep apnea 12. Chronic pain syndrome 13. DVT PAST SURGICAL HISTORY: 1. Coronary bypass graft 2. Heart catheterization HOME MEDICATIONS: Home Medications Medication Instructions Recorded Confirmed Mometasone/Formoterol [Dulera 100 2 puff INHALATION RT-BID 07/26/18 08/06/20 Mcg-5 Mcg Inhaler] Albuterol Nebulized [Ventolin 2.5 mg INHALATION RT-Q4H PRN 03/31/19 08/06/20 Nebulized] Latanoprost/Pf [Latanoprost 0.005% 1 drop BOTH EYES HS 06/12/19 08/06/20 Eye Drop] HYDROcodone/APAP 5-325MG [[place] 1 tab PO Q4HR PRN 07/16/19 08/06/20 5-325] Insulin Lispro [Admelog Solostar] See Protocol SQ AC-TID 07/16/19 08/06/20 Sennosides-Docusate Sodium 2 tab PO HS PRN 07/16/19 08/06/20 [Senokot-S] Clopidogrel [Plavix] 75 mg PO DAILY 07/23/19 08/06/20 Metoprolol Tartrate [Lopressor] 75 mg PO TID 08/27/19 08/06/20 Cholecalciferol (Vitamin D3) 125 mcg PO DAILY 08/06/20 08/06/20 [Vitamin D3] Insulin NPH/Reg Insulin 70/30 70 unit SQ BID 08/06/20 08/06/20 [humuLIN 70/30 VIAL] Budesonide [Pulmicort] 0.25 mg INHALATION BID 08/07/20 08/07/20 Previous Rx's Medication Instructions Recorded Acetaminophen Tab [Tylenol] 1,000 mg PO Q6HR PRN #120 tab 06/29/19 Atorvastatin [Lipitor] 80 mg PO HS 30 Days #30 tab 06/29/19 Digoxin [Lanoxin] 250 mcg PO DAILY #30 tab 06/29/19 Diltiazem Cd [Cardizem CD] 180 mg PO DAILY #30 cap.er.24h 06/29/19 Loratadine [Claritin] 10 mg PO DAILY #30 tab 06/29/19 Losartan [Cozaar] 25 mg PO Q24H #30 tab 06/29/19 Montelukast Sodium [Singulair] 10 mg PO HS #30 tab 06/29/19 Multivitamins, Thera [Multivitamin 1 tab PO DAILY #30 tab 10/11/19 (formulary)] Nystatin 100,000 Unit/ml Susp 500,000 unit PO QID #30 cup 06/29/19 [Mycostatin Oral Susp] Pantoprazole [Protonix] 40 mg PO AC-BRKFST #30 tablet. 06/29/19 Aspirin 81 mg PO DAILY #30 chew 07/18/19 Furosemide [Lasix] 60 mg PO BID #90 tab 08/31/19 ALLERGIES: Allergies Allergy/AdvReac Type Severity Reaction Status Date / Time mold AdvReac Itching Verified 08/06/20 16:41 dust Allergy Mild Itching Uncoded 08/06/20 16:41 SOCIAL HISTORY: No past tobacco use. FAMILY HISTORY: No family history of ulcerative colitis disease or Crohn's disease. Family history of morbid obesity. No lupus in the family. No reports of stomach or esophageal cancer. REVIEW OF ORGAN SYSTEMS: CONSTITUTIONAL: At height of 5 feet 5.5 inches, her ideal body weight is 149 pounds. Her highest weight is 372 pounds, her BMI 61.1. She comes in 359 pounds. Her body mass index is 59.0. She is 210 pounds overweight. HEENT: Denies any active troubles with vision or hearing. ENDOCRINE: Has diabetes. No hypothyroidism. CARDIOVASCULAR: Has past reports of palpitations or heart attacks or chest pain. RESPIRATORY: No daytime somnolence. No asthma. GASTROINTESTINAL: Denies any bright red blood per rectum. No diarrhea. No constipation. MUSCULOSKELETAL: Has lower back pain and joint pain. Has osteoarthritis of the knees. NEURO: No headaches. No seizure disorders. PSYCH: Denies depression. No suicidal ideation. RHEUMATOLOGIC: No lupus. No rheumatoid arthritis. HEMATOLOGIC: Denies any abnormal bleeding or bruising. Has personal history of DVTs. SKIN: No rash. No skin cancer. PHYSICAL EXAM: VITAL SIGNS: Height 5 foot 5.5 inches, weight 359 pounds. BMI 59.0 Vital Signs Temp 98.4 F 08/06/20 16:32 Pulse 81 08/06/20 16:32 Resp 20 08/06/20 16:32 BP 123/76 08/06/20 16:32 Pulse Ox GENERAL: Well-developed in no acute distress. HEENT: No scleral icterus. Extraocular movements grossly intact. Hears conversational speech. No nasal drainage. NECK: Supple without lymphadenopathy. CHEST: Nonlabored respirations with equal bilateral excursions. CARDIOVASCULAR: Regular rate and regular rhythm. Distal 2+ pulses. ABDOMEN: Obese, soft, nontender, nondistended. MUSCULOSKELETAL: No clubbing, cyanosis. NEURO: No focal or lateralizing signs. Cranial nerves 2 through 12 grossly within normal limits. PSYCH: Appropriate affect. Alert and oriented to person, place and time. SKIN: Good skin turgor. Well perfused. LABS: Hgb A1c over 11! ASSESSMENT: 1. Morbid obesity due to excess calories 2. Body mass index of 61.1, initial 3. Asthma 4. Glaucoma 5. Diabetes type II insulin dependent 6. Coronary artery disease 7. Hypertensive heart disease 8. Hyperlipidemia 9. Gastroesophageal reflux disease 10. Arrhythmia 11. Obstructive sleep apnea 12. Chronic pain syndrome 13. DVT PLAN: 1. Surgical options including a band, gastric bypass, sleeve gastrectomy were described in detail. Alternatives such as gastric balloon including duodenal switch were described. She is looking into the sleeve gastrectomy 2. The [place] bariatric surgical collaborative data and outcomes calculator were described with surgical options. 3. Recommend a bariatric metabolic panel to evaluate for micro- including macronutrient deficiencies. 4. For history of daytime somnolence, recommend evaluation and treatment for sleep apnea. 5. Dietary surveillance and counseling was reviewed. Increased protein intake over 65 grams daily advised. 6. Will need cardiac risk assessment. 7. Recommend medical risk assessment. 8. Psych assessment per insurance guidelines. 9. Recommend upper endoscopy. 10. Recommend 12-lead EKG. 11. She is very high risk 15 to 26% with gastrectomy procedures with her diabetes. 12. She will need 12 months medical supervised weight loss. 13. Recommend diabetic education Thank you for this consultation. Past Medical History Past Medical History: Asthma, Coronary Artery Disease (CAD), Diabetes Mellitus, Eye Disorder, Hyperlipidemia, Hypertension, Sleep Apnea/CPAP/BIPAP Additional Past Medical History / Comment(s): retinopathy,GLAUCOMA, chronic pain, BLOOD CLOT IN ARM 30 YEARS AGO R/T TO PICC LINE MISPLACEMENT, uses CPAP History of Any Multi-Drug Resistant Organisms: None Reported Past Surgical History: Coronary Bypass/CABG, Heart Catheterization Additional Past Surgical History / Comment(s): elective off-pump four-vessel coronary artery bypass graft surgery with left atrial appendage ligation on 06/22/2019 Past Anesthesia/Blood Transfusion Reactions: No Reported Reaction Additional Past Anesthesia/Blood Transfusion Reaction / Comm: no anesthesia Past Psychological History: No Psychological Hx Reported Additional Psychological History / Comment(s): Pt resides with her annie, Tia. She has home oxygen which she wears at 2L/NC ATC. She has a nebulizer. She has [facility] home care. Smoking Status: Never smoker Past Alcohol Use History: None Reported Past Drug Use History: None Reported - Past Family History Father Family Medical History: Cancer Additional Family Medical History / Comment(s): Colon CA Mother Family Medical History: Diabetes Mellitus, Hypertension Brother(s) Family Medical History: Diabetes Mellitus Surgical - Exam Vital Signs Temp Pulse Resp BP 98.4 F 81 20 123/76 08/06/20 16:32 08/06/20 16:32 08/06/20 16:32 08/06/20 16:32 Bariatric Checklist Checklist: Plan: Checklist: EGD: 1. Hiatal hernia: 2. H. Pylori: HgbA1c: Vitamin D: Smoking: Never smoker Primary care physician referral: Juany Duong Psychiatry clearance: Cardiology clearance: Sleep study: Diet journal: VTE risk score: VTE risk level: Rehab needs at discharge:
== END | disposition home or self-care (01) ==
LOC: BARWHC3 16:01
PROVIDERS: ATTEND Surgery Plastic and Reconstructive Surgery
DX: E66.01 Morbid (severe) obesity due to excess calories (principal); J45.909 Unspecified asthma, uncomplicated; H40.9 Unspecified glaucoma; E11.9 Type 2 diabetes mellitus without complications; I25.10 Atherosclerotic heart disease of native coronary artery without angina pectoris; I11.9 Hypertensive heart disease without heart failure; E78.5 Hyperlipidemia, unspecified; K21.9 Gastro-esophageal reflux disease without esophagitis; I49.9 Cardiac arrhythmia, unspecified; G47.33 Obstructive sleep apnea (adult) (pediatric); G89.4 Chronic pain syndrome; I82.409 Acute embolism and thrombosis of unspecified deep veins of unspecified lower extremity; Z68.44 Body mass index [BMI] 60.0-69.9, adult; Z83.49 Family history of other endocrine, nutritional and metabolic diseases; Z91.048 Other nonmedicinal substance allergy status; Z79.82 Long term (current) use of aspirin; Z79.4 Long term (current) use of insulin; Z79.1 Long term (current) use of non-steroidal anti-inflammatories (NSAID); Z79.02 Long term (current) use of antithrombotics/antiplatelets; Z79.51 Long term (current) use of inhaled steroids; Z79.891 Long term (current) use of opiate analgesic; Z79.899 Other long term (current) drug therapy
CPT/HCPCS: 99211

== ENCOUNTER 2020-10-22 22:14 | Observation (INO) | payer OTHER ==
[2020-10-22] MEDS ORDERED: ALBUTEROL HFA INHALER INHALATION STA (22:45)
--- NOTE | 2020-10-22 22:45 | ED ---
Chest Pain HPI - General Chief Complaint: Chest Pain Stated Complaint: chest pressure Time Seen by Provider: 10/22/20 22:24 Source: patient, RN notes reviewed, old records reviewed Mode of arrival: wheelchair Limitations: no limitations - History of Present Illness Initial Comments: This is a 34-year-old female DF she presents today for evaluation regards to possible coronavirus. Patient has to time with recent diagnosis of coronavirus (inserted feel weak chest tightness chest fatigued overall generalized body aches and pains. I am patient does have positive recent exposure to bad members with positive coronavirus testing MD Complaint: chest pain -: days(s) Pain Location: substernal Pain Radiation: none Severity: moderate Severity scale (1-10): 4 Quality: tightness Consistency: constant Improves With: nothing Context: recent illness Anginal Symptoms: nausea Other Symptoms: cough Treatments Prior to Arrival: none - Related Data Home Medications Medication Instructions Recorded Confirmed Mometasone/Formoterol [Dulera 100 2 puff INHALATION RT-BID 07/26/18 08/06/20 Mcg-5 Mcg Inhaler] Albuterol Nebulized [Ventolin 2.5 mg INHALATION RT-Q4H PRN 03/31/19 08/06/20 Nebulized] Latanoprost/Pf [Latanoprost 0.005% 1 drop BOTH EYES HS 06/12/19 08/06/20 Eye Drop] HYDROcodone/APAP 5-325MG [[place] 1 tab PO Q4HR PRN 07/16/19 08/06/20 5-325] Insulin Lispro [Admelog Solostar] See Protocol SQ AC-TID 07/16/19 08/06/20 Sennosides-Docusate Sodium 2 tab PO HS PRN 07/16/19 08/06/20 [Senokot-S] Clopidogrel [Plavix] 75 mg PO DAILY 07/23/19 08/06/20 Metoprolol Tartrate [Lopressor] 75 mg PO TID 08/27/19 08/06/20 Cholecalciferol (Vitamin D3) 125 mcg PO DAILY 08/06/20 08/06/20 [Vitamin D3] Insulin NPH/Reg Insulin 70/30 70 unit SQ BID 08/06/20 08/06/20 [humuLIN 70/30 VIAL] Budesonide [Pulmicort] 0.25 mg INHALATION BID 08/07/20 08/07/20 Previous Rx's Medication Instructions Recorded Acetaminophen Tab [Tylenol] 1,000 mg PO Q6HR PRN #120 tab 06/29/19 Atorvastatin [Lipitor] 80 mg PO HS 30 Days #30 tab 06/29/19 Digoxin [Lanoxin] 250 mcg PO DAILY #30 tab 06/29/19 Diltiazem Cd [Cardizem CD] 180 mg PO DAILY #30 cap.er.24h 06/29/19 Loratadine [Claritin] 10 mg PO DAILY #30 tab 06/29/19 Losartan [Cozaar] 25 mg PO Q24H #30 tab 06/29/19 Montelukast Sodium [Singulair] 10 mg PO HS #30 tab 06/29/19 Multivitamins, Thera [Multivitamin 1 tab PO DAILY #30 tab 06/29/19 (formulary)] Nystatin 100,000 Unit/ml Susp 500,000 unit PO QID #30 cup 06/29/19 [Mycostatin Oral Susp] Pantoprazole [Protonix] 40 mg PO AC-BRKFST #30 tablet.dr 06/29/19 Aspirin 81 mg PO DAILY #30 chew 07/18/19 Furosemide [Lasix] 60 mg PO BID #90 tab 08/31/19 Allergies Allergy/AdvReac Type Severity Reaction Status Date / Time mold AdvReac Itching Verified 10/22/20 22:23 dust Allergy Mild Itching Uncoded 10/22/20 22:23 Review of Systems ROS Statement: Those systems with pertinent positive or pertinent negative responses have been documented in the HPI. ROS Other: All systems not noted in ROS Statement are negative. EKG Findings - EKG Comments: EKG Findings:: EKG is sinus rhythm 88, MO 156 QRS 80 QTC 4:30 Past Medical History Past Medical History: Asthma, Coronary Artery Disease (CAD), Diabetes Mellitus, Eye Disorder, Hyperlipidemia, Hypertension, Sleep Apnea/CPAP/BIPAP Additional Past Medical History / Comment(s): retinopathy,GLAUCOMA, chronic pain, BLOOD CLOT IN ARM 30 YEARS AGO R/T TO PICC LINE MISPLACEMENT, uses CPAP History of Any Multi-Drug Resistant Organisms: None Reported Past Surgical History: Coronary Bypass/CABG, Heart Catheterization Additional Past Surgical History / Comment(s): elective off-pump four-vessel coronary artery bypass graft surgery with left atrial appendage ligation on 06/22/2019 Past Anesthesia/Blood Transfusion Reactions: No Reported Reaction Additional Past Anesthesia/Blood Transfusion Reaction / Comment(s): no anesthesia Past Psychological History: No Psychological Hx Reported Smoking Status: Never smoker Past Alcohol Use History: None Reported Past Drug Use History: None Reported - Past Family History Father Family Medical History: Cancer Additional Family Medical History / Comment(s): Colon CA Mother Family Medical History: Diabetes Mellitus, Hypertension Brother(s) Family Medical History: Diabetes Mellitus General Exam Limitations: no limitations General appearance: alert, in no apparent distress Head exam: Present: atraumatic, normocephalic, normal inspection Eye exam: Present: normal appearance, PERRL, EOMI. Absent: scleral icterus, conjunctival injection, periorbital swelling ENT exam: Present: normal exam, mucous membranes moist Neck exam: Present: normal inspection. Absent: tenderness, meningismus, lymphadenopathy Respiratory exam: Present: normal lung sounds bilaterally. Absent: respiratory distress, wheezes, rales, rhonchi, stridor Cardiovascular Exam: Present: regular rate, normal rhythm, normal heart sounds. Absent: systolic murmur, diastolic murmur, rubs, gallop, clicks GI/Abdominal exam: Present: soft, normal bowel sounds. Absent: distended, tenderness, guarding, rebound, rigid Extremities exam: Present: normal inspection, full ROM, normal capillary refill. Absent: tenderness, pedal edema, joint swelling, calf tenderness Back exam: Present: normal inspection Neurological exam: Present: alert, oriented X3, CN II-XII intact Psychiatric exam: Present: normal affect, normal mood Skin exam: Present: warm, dry, intact, normal color. Absent: rash Course Vital Signs 10/22/20 10/22/20 10/23/20 22:21 23:39 00:46 Temperature 98.9 F Pulse Rate 86 88 Respiratory 21 18 16 Rate Blood Pressure 163/80 131/65 O2 Sat by Pulse 98 100 Oximetry - Reevaluation(s) Reevaluation #1: 10/23/20 01:36 4 medical record is reviewed Reevaluation #2: 10/23/20 01:36 Patient is in no respiratory distress here in the ER Reevaluation #3: 10/23/20 01:36 Spoke patient regarding findings, questions answered, patient very concerned over new coronavirus diagnosis - Consultations Consultation #1: Spoke with Dr. Gallagher agrees to admit the patient Chest Pain MDM - MDM 54 female to the ER for evaluation patient presents today for evaluation regards to significant shortness of breath weakness bodyaches and pains a positive coronavirus Disposition Clinical Impression: Coronavirus infection, Asthma exacerbation, Dyspnea, Diabetes mellitus Disposition: ADMITTED IP TO THIS HOSP Condition: Serious Is patient prescribed a controlled substance at d/c from ED?: No Referrals: Dipak Stanford [Primary Care Provider] - 1-2 days
[2020-10-22 23:44] LABS: Basophils % (A) 0 %; Eosinophils # (A) 0.1 k/uL (0-0.7); Eosinophils % (A) 2 %; HCT 40.5 % (34.0-46.0); HGB 12.8 gm/dL (11.4-16.0); Lymphocytes # (A) 0.9 k/uL (1.0-4.8); Lymphocytes % (A) 26 %; MCH 25.1 pg (25.0-35.0); MCHC 31.6 g/dL (31.0-37.0); MCV 79.5 fL (80.0-100.0); Mean Platelet Volume 7.6; Monocytes # (A) 0.2 k/uL (0-1.0); Monocytes % (A) 6 %; Neutrophils # (A) 2.4 k/uL (1.3-7.7); Neutrophils % (A) 65 %; Platelet Count 231 k/uL (150-450); RDW 13.2 % (11.5-15.5); WBC 3.6 k/uL (3.8-10.6)
--- NOTE | 2020-10-22 23:50 | XR ---
EXAMINATION TYPE: XR chest 1V portable DATE OF EXAM: 10/22/2020 COMPARISON: 08/31/2019 HISTORY: Chest pain. Nausea. Pneumonia. TECHNIQUE: FINDINGS: Exam limited by patient's size. There is no heart failure nor confluent pneumonic infiltrat e. There are chest leads. There are sternal wires. IMPRESSION: No active cardiopulmonary disease. There is clearing of the airspace infiltrates and pleural fluid on the left side compared to old exam.
[2020-10-23] LABS: ALT 25 U/L (4-34); AST 29 U/L (14-36); African American GFR (CKD) >90 (>60 ml/min/1.73 sqM); Albumin 3.5 g/dL (3.5-5.0); Alkaline Phosphatase 183 U/L (38-126); Anion Gap 8 mmol/L; Blood Urea Nitrogen 6 mg/dL (7-17); C Reactive Protein 23.9 mg/L (<10.0); Calcium 8.2 mg/dL (8.4-10.2); Carbon Dioxide 27 mmol/L (22-30); Chloride 99 mmol/L (98-107); Glucose 348 mg/dL (74-99); LDH 539 U/L (313-618); Magnesium 1.7 mg/dL (1.6-2.3); Non-African American GFR(CKD) >90 (>60 ml/min/1.73 sqM); Potassium 3.8 mmol/L (3.5-5.1); Sodium 134 mmol/L (137-145); Total Bilirubin 0.6 mg/dL (0.2-1.3); Total Protein 6.9 g/dL (6.3-8.2)
[2020-10-23 00:06] LABS: D-Dimer 0.52 mg/L FEU (<0.60); INR 0.9 (<1.2); Prothrombin Time 9.6 sec (9.0-12.0)
[2020-10-23 00:08] LABS: Partial Thromboplastin Time 18.4 sec (22.0-30.0)
[2020-10-23] MEDS ORDERED: MORPHINE SULFATE 4 MG/ML SYRINGE IVP STA (01:32)
[2020-10-23] MEDS ORDERED: MORPHINE SULFATE 4 MG/ML SYRINGE IVP PRN (01:32)
[2020-10-23] MEDS ORDERED: MORPHINE SULFATE 4 MG/ML SYRINGE IV PRN (01:32)
[2020-10-23] MEDS ORDERED: NALOXONE 0.4 MG/ML 1 ML VIAL IV PRN (01:32)
--- NOTE | 2020-10-23 02:21 | P.HPIM ---
History of Present Illness H&P Date: 10/23/20 Patient is a 54-year-old female with a PMH of type II DM, hypertension, hyperlipidemia, and coronary artery disease who presented to the emergency room with complaints of body aches, chest tightness, and fatigue. The patient notes that her symptoms initially started 4 days ago with abdominal pain and diarrhea which has since resolved. She then developed diffuse body aches along with intermittent diffuse chest tightness. The patient notes that multiple family members were recently admitted to the hospital with COVID-19. She notes that the chest tightness is nonexertional, without associated palpitations, diaphoresis, or shortness of breath. The patient denied experiencingfever, chills, cough, nausea, vomiting. In the emergency room, the coronavirus testing was positive, with lymphopenia, hyponatremia with sodium 134, glucose 348, CRP 23.9, and alk phos 183. Chest x-ray was unremarkable with EKG showing normal sinus rhythm at 88 bpm with no acute ST/T-wave changes noted as reviewed by me. Review of Systems Pertinent positives and negatives as discussed in HPI, a complete review of systems was performed and all other systems are negative. Past Medical History Past Medical History: Asthma, Coronary Artery Disease (CAD), Diabetes Mellitus, Eye Disorder, Hyperlipidemia, Hypertension, Sleep Apnea/CPAP/BIPAP Additional Past Medical History / Comment(s): retinopathy,GLAUCOMA, chronic дмитрий n, BLOOD CLOT IN ARM 30 YEARS AGO R/T TO PICC LINE MISPLACEMENT, uses CPAP History of Any Multi-Drug Resistant Organisms: None Reported Past Surgical History: Coronary Bypass/CABG, Heart Catheterization Additional Past Surgical History / Comment(s): elective off-pump four-vessel coronary artery bypass graft surgery with left atrial appendage ligation on 06/22/2019 Past Anesthesia/Blood Transfusion Reactions: No Reported Reaction Additional Past Anesthesia/Blood Transfusion Reaction / Comment(s): no anesthesia Past Psychological History: No Psychological Hx Reported Smoking Status: Never smoker Past Alcohol Use History: None Reported Past Drug Use History: None Reported - Past Family History Father Family Medical History: Cancer Additional Family Medical History / Comment(s): Colon CA Mother Family Medical History: Diabetes Mellitus, Hypertension Brother(s) Family Medical History: Diabetes Mellitus Medications and Allergies Home Medications Medication Instructions Recorded Confirmed Type Mometasone/Formoterol [Dulera 100 2 puff INHALATION RT-BID 07/26/18 08/06/20 Hi story Mcg-5 Mcg Inhaler] Albuterol Nebulized [Ventolin 2.5 mg INHALATION RT-Q4H PRN 03/31/19 08/06/20 History Nebulized] Latanoprost/Pf [Latanoprost 0.005% 1 drop BOTH EYES HS 06/12/19 08/06/20 History Eye Drop] Acetaminophen Tab [Tylenol] 1,000 mg PO Q6HR PRN #120 tab 06/29/19 08/06/20 Rx Atorvastatin [Lipitor] 80 mg PO HS 30 Days #30 tab 06/29/19 08/06/20 Rx Digoxin [Lanoxin] 250 mcg PO DAILY #30 tab 06/29/19 08/06/20 Rx Diltiazem Cd [Cardizem CD] 180 mg PO DAILY #30 cap.er.24h 06/29/19 08/06/20 Rx Loratadine [Claritin] 10 mg PO DAILY #30 tab 06/29/19 08/06/20 Rx Losartan [Cozaar] 25 mg PO Q24H #30 tab 06/29/19 08/06/20 Rx Montelukast Sodium [Singulair] 10 mg PO HS #30 tab 06/29/19 08/06/20 Rx Multivitamins, Thera [Multivitamin 1 tab PO DAILY #30 tab 06/29/19 08/06/20 Rx (formulary)] Nystatin 100,000 Unit/ml Susp 500,000 unit PO QID #30 cup 06/29/19 08/06/20 Rx [Mycostatin Oral Susp] Pantoprazole [Protonix] 40 mg PO AC-BRKFST #30 tablet.dr 06/29/19 08/06/20 Rx HYDROcodone/APAP 5-325MG [[place] 1 tab PO Q4HR PRN 07/16/19 08/06/20 History 5-325] Insulin Lispro [Admelog Solostar] See Protocol SQ AC-TID 07/16/19 08/06/20 History Sennosides-Docusate Sodium 2 tab PO HS PRN 07/16/19 08/06/20 History [Senokot-S] Aspirin 81 mg PO DAILY #30 chew 07/18/19 08/06/20 Rx Clopidogrel [Plavix] 75 mg PO DAILY 07/23/19 08/06/20 History Metoprolol Tartrate [Lopressor] 75 mg PO TID 08/27/19 08/06/20 History Furosemide [Lasix] 60 mg PO BID #90 tab 08/31/19 08/06/20 Rx Cholecalciferol (Vitamin D3) 125 mcg PO DAILY 08/06/20 08/06/20 History [Vitamin D3] Insulin NPH/Reg Insulin 70/30 70 unit SQ BID 08/06/20 08/06/20 History [humuLIN 70/30 VIAL] Budesonide [Pulmicort] 0.25 mg INHALATION BID 08/07/20 08/07/20 History Allergies Allergy/AdvReac Type Severity Reaction Status Date / Time mold AdvReac Itching Verified 10/22/20 22:23 dust Allergy Mild Itching Uncoded 10/22/20 22:23 Physical Exam Vitals: Vital Signs Temp Pulse Resp BP Pulse Ox 10/23/20 00:46 88 16 131/65 100 10/22/20 23:39 18 10/22/20 22:21 98.9 F 86 21 163/80 98 Intake and Output 10/22/20 10/22/20 10/23/20 14:59 22:59 06:59 Other: Weight 161.932 kg General: non toxic, no distress, appears at stated age, morbidly obese Derm: no unusual rashes/lesions no unusual ecchymoses, warm, dry Head: atraumatic, normocephalic, symmetric Eyes: EOMI, no lid lag, anicteric sclera, pupils equal round reactive to light ENT: Nose and ears atraumatic, no thrush, no pharyngeal erythema Neck: No thyromegaly, no cervical lymphadenopathy, trachea midline, supple Mouth: no lip lesion, mucus membranes moist Cardiovascular: S1S2 reg, no murmur, positive posterior tibial pulse bilateral, 1+ bilateral lower extremity pitting edema, capillary refill less than 2 seconds Lungs: CTA bilateral, no rhonchi, no rales , no accessory muscle use Abdominal: soft, nontender to palpation, no guarding, no appreciable organomegaly, normal bowel sounds Ext: no gross muscle atrophy, muscle strength 5 out of 5 in all 4 extremities grossly, no contractures, Neuro: CN II-XI grossly intact, light touch intact all 4 extremities, finger to nose within normal limits, Psych: Alert, oriented, appropriate affect Results CBC & Chem 7: 10/22/20 22:45 10/22/20 22:45 Labs: Abnormal Lab Results - Last 24 Hours (Table) 10/22/20 10/22/20 10/22/20 Range/Units 22:45 22:45 22:45 WBC 3.6 L (3.8-10.6) k/uL MCV 79.5 L (80.0-100.0) fL Lymphocytes # 0.9 L (1.0-4.8) k/uL APTT 18.4 L (22.0-30.0) sec Sodium 134 L (137-145) mmol/L BUN 6 L (7-17) mg/dL Creatinine 0.49 L (0.52-1.04) mg/dL Glucose 348 H (74-99) mg/dL Calcium 8.2 L (8.4-10.2) mg/dL Alkaline Phosphatase 183 H (38-126) U/L C-Reactive Protein 23.9 H (<10.0) mg/L Coronavirus (PCR) (Not Detectd) 10/22/20 Range/Units 22:46 WBC (3.8-10.6) k/uL MCV (80.0-100.0) fL Lymphocytes # (1.0-4.8) k/uL APTT (22.0-30.0) sec Sodium (137-145) mmol/L BUN (7-17) mg/dL Creatinine (0.52-1.04) mg/dL Glucose (74-99) mg/dL Calcium (8.4-10.2) mg/dL Alkaline Phosphatase (38-126) U/L C-Reactive Protein (<10.0) mg/L Coronavirus (PCR) Detected A (Not Detectd) Assessment and Plan Plan: COVID-19 infection -Zinc, vitamin C, vitamin D, melatonin -Patient does not meet criteria for steroid therapy -ID consult Chest tightness, likely due to COVID-19 -Trend troponin -Cardiac monitoring Chronic conditions: Type II DM, hypertension, hyperlipidemia, coronary artery disease -Check A1c -Continue with home insulin therapy with lispro insulin sliding scale and blood glucose monitoring -Continue with home medications DVT prophylaxis -Lovenox The patient is admitted with an anticipated less than 2 midnight stay for evaluation of COVID-19 CODE STATUS: Full Code Discussed with: Patient Anticipated discharge date: in am Anticipated discharge place: home A total of 35 minutes was spent on the care of this complex patient more than 50% of the time was spent in counseling and care coordination.
[2020-10-23 06:47] LABS: Glucose,Whole Blood 289 mg/dL (75-99)
[2020-10-23] MEDS: INSULIN ASPART (NovoLOG) 100 UNIT/ML VIAL SQ SCH ×4 (08:30→21:33)
[2020-10-23] MEDS: ENOXAPARIN 40 MG/0.4 ML SYRINGE SQ SCH (08:30)
[2020-10-23] MEDS: FAMOTIDINE 20 MG TAB PO SCH (08:39)
[2020-10-23] MEDS: CHOLECALCIFEROL 25 MCG (1000 IU) TABLET PO SCH (08:39)
[2020-10-23] MEDS: ZINC SULFATE 220 MG CAP PO SCH (08:39)
[2020-10-23] MEDS: ASCORBIC ACID 500 MG TAB PO SCH (08:39)
[2020-10-23] MEDS: COLCHICINE 0.6 MG EACH PO SCH ×2 (08:45→21:40)
[2020-10-23] MEDS ORDERED: OMALIZUMAB 150 MG/ML SYRINGE SQ SCH (10:00)
[2020-10-23] MEDS ORDERED: HYDROmorphone 0.5 MG/0.5 ML SYRINGE IVP PRN (10:09)
[2020-10-23] MEDS ORDERED: INSULIN DETEMIR (LEVEMIR) 100 UNIT/ML SYR SQ ONE (10:30)
[2020-10-23] MEDS: HYDROcodone/APAP 10-325MG 1 EACH TAB PO PRN ×2 (10:56→21:39)
[2020-10-23] MEDS: LORATADINE 10 MG TAB PO SCH (10:56)
[2020-10-23] MEDS: LOSARTAN 25 MG TAB PO SCH (10:56)
[2020-10-23] MEDS: METOPROLOL TARTRATE 25 MG TAB PO SCH ×3 (10:57→21:34)
[2020-10-23] MEDS: DILTIAZEM CD 180 MG CAP.ER.24H PO SCH (10:57)
[2020-10-23] MEDS: DIGOXIN 250 MCG TAB PO SCH (10:57)
[2020-10-23] MEDS: FUROSEMIDE 20 MG TAB PO SCH ×2 (10:57→17:09)
[2020-10-23 11:32] LABS: Glucose,Whole Blood 302 mg/dL (75-99)
[2020-10-23] MEDS: ONDANSETRON 4 MG/2 ML VIAL IVP PRN ×3 (11:55→22:39)
--- NOTE | 2020-10-23 15:00 | P.HPIM ---
History of Present Illness H&P Date: 10/23/20 Chief Complaint: muscle aches and pain Patient is a 54 yo AAF with type II DM, hypertension, hyperlipidemia, COPD on 2 L chronically, and coronary artery disease who presented to the emergency department with complaints of body aches, chest tightness, and fatigue. She was found to be COVID positive. Her CXR showed no signs of inflammation. Her laboratory analysis showed a slightly elevated CRP at 23.6. Due to her high risk nature she was subsequently admitted for monitoring. She was started on zinc, vitamin C, and Pepcid. On the morning after admission she was satting 97% on 2 L nasal cannula and was subsequently downgraded to room air. Patient seen and examined at bedside. She reports that she still feels terrible. She describes muscle aching that is all over including in her chest. Shortness of breath that is worse with exertion and better with rest. Some nausea, no diarrhea. No headache. She is feeling overall fatigued. We discussed who lives with her and her need for isolation. She also has 2 daughters that are insulin-dependent diabetics who likely should be tested for Covid given the offer of Regeneron therapy, she is aware of the importance of calling her daughters and telling them to discuss this with their primary care physician over the phone. Review of Systems Pertinent positives and negatives as discussed in HPI, a complete review of systems was performed and all other systems are negative. Past Medical History Past Medical History: Asthma, Coronary Artery Disease (CAD), Diabetes Mellitus, Eye Disorder, Hyperlipidemia, Hypertension, Sleep Apnea/CPAP/BIPAP Additional Past Medical History / Comment(s): retinopathy,GLAUCOMA, chronic pain, BLOOD CLOT IN ARM 30 YEARS AGO R/T TO PICC LINE MISPLACEMENT, uses CPAP History of Any Multi-Drug Resistant Organisms: None Reported Past Surgical History: Coronary Bypass/CABG, Heart Catheterization Additional Past Surgical History / Comment(s): elective off-pump four-vessel coronary artery bypass graft surgery with left atrial appendage ligation on 06/22/2019 Past Anesthesia/Blood Transfusion Reactions: No Reported Reaction Additional Past Anesthesia/Blood Transfusion Reaction / Comment(s): no anesthesia Past Psychological History: No Psychological Hx Reported Smoking Status: Never smoker Past Alcohol Use History: None Reported Past Drug Use History: None Reported - Past Family History Father Family Medical History: Cancer Additional Family Medical History / Comment(s): Colon CA Mother Family Medical History: Diabetes Mellitus, Hypertension Brother(s) Family Medical History: Diabetes Mellitus Medications and Allergies Home Medications Medication Instructions Recorded Confirmed Type Mometasone/Formoterol [Dulera 100 2 puff INHALATION RT-BID 07/26/18 10/23/20 History Mcg-5 Mcg Inhaler] Albuterol Nebulized [Ventolin 2.5 mg INHALATION RT-TID PRN 03/31/19 10/23/20 History Nebulized] Latanoprost/Pf [Latanoprost 0.005% 1 drop BOTH EYES HS 06/12/19 10/23/20 History Eye Drop] Acetaminophen Tab [Tylenol] 1,000 mg PO Q6HR PRN #120 tab 06/29/19 10/23/20 Rx Atorvastatin [Lipitor] 80 mg PO HS 30 Days #30 tab 06/29/19 10/23/20 Rx Digoxin [Lanoxin] 250 mcg PO DAILY #30 tab 06/29/19 10/23/20 Rx Diltiazem Cd [Cardizem CD] 180 mg PO DAILY #30 cap.er.24h 06/29/19 10/23/20 Rx Loratadine [Claritin] 10 mg PO DAILY #30 tab 06/29/19 10/23/20 Rx Montelukast Sodium [Singulair] 10 mg PO HS #30 tab 06/29/19 10/23/20 Rx Multivitamins, Thera [Multivitamin 1 tab PO DAILY #30 tab 06/29/19 10/23/20 Rx (formulary)] Pantoprazole [Protonix] 40 mg PO -BRKFST #30 tablet.dr 06/29/19 10/23/20 Rx Aspirin 81 mg PO DAILY #30 chew 07/18/19 10/23/20 Rx Clopidogrel [Plavix] 75 mg PO DAILY 07/23/19 10/23/20 History Metoprolol Tartrate [Lopressor] 75 mg PO TID 08/27/19 10/23/20 History Albuterol Sulfate [Proventil Hfa] 2 puff INHALATION RT-QID PRN 10/23/20 10/23/20 History Amoxicillin 875 mg PO Q12HR 10/23/20 10/23/20 History Budesonide [Pulmicort] 1 mg INHALATION RT-BID 10/23/20 10/23/20 History Cholecalciferol [Vitamin D3 (25 50 mcg PO DAILY 10/23/20 10/23/20 History Mcg = 1000 Iu)] Docusate [Colace] 100 mg PO BID 10/23/20 10/23/20 History Furosemide [Lasix] 60 mg PO BID 10/23/20 10/23/20 History HYDROcodone/APAP 10-325MG [[place] 1 tab PO TID PRN 10/23/20 10/23/20 History 10-325] Insulin Regular, Human [humulin R 50 unit SQ TID 10/23/20 10/23/20 History U-500 Kwikpen] Losartan [Cozaar] 25 mg PO DAILY 10/23/20 10/23/20 History Omalizumab [Xolair] 150 mg SQ QMONTHLY 10/23/20 10/23/20 History Allergies Allergy/AdvReac Type Severity Reaction Status Date / Time mold AdvReac Itching Verified 10/23/20 08:33 dust AdvReac Mild Itching Uncoded 10/23/20 08:33 Physical Exam Osteopathic Statement: *. No significant issues noted on an osteopathic structural exam other than those noted in the History and Physical/Consult. Vitals: Vital Signs Temp Pulse Pulse Resp BP BP Pulse Ox 10/23/20 13:56 100.3 F H 84 18 117/65 93 L 10/23/20 10:04 100.3 F H 104 H 18 164/80 97 10/23/20 08:33 111 H 95 10/23/20 08:00 104 H 18 10/23/20 05:35 99.4 F 97 15 150/80 98 10/23/20 02:45 99.1 F 91 17 120/73 99 10/23/20 00:46 88 16 131/65 100 10/22/20 23:39 18 10/22/20 22:21 98.9 F 86 21 163/80 98 Intake and Output 10/22/20 10/23/20 10/23/20 22:59 06:59 14:59 Intake Total 240 Balance 240 Intake: Oral 240 Other: Weight 161.932 kg 161.932 kg General: ill appearing, mild distress, appears at stated age, obese Derm: warm, dry Head: atraumatic, normocephalic, symmetric Eyes: EOMI, no lid lag, anicteric sclera Mouth: no lip lesion, mucus membranes moist Cardiovascular: S1S2 reg, no murmur, positive posterior tibial pulse bilateral, Lungs: Decreased breath sounds bilaterally likely secondary to body habitus, no rhonchi, no rales , no accessory muscle use Abdominal: soft, nontender to palpation, no guarding, no appreciable organomegaly Ext: no gross muscle atrophy, no edema, no contractures Neuro: CN II-XI grossly intact, no focal neuro deficits Psych: Alert, oriented, appropriate affect Results CBC & Chem 7: 10/22/20 22:45 10/22/20 22:45 Labs: Abnormal Lab Results - Last 24 Hours (Table) 10/22/20 10/22/20 10/22/20 Range/Units 22:45 22:45 22:45 WBC 3.6 L (3.8-10.6) k/uL MCV 79.5 L (80.0-100.0) fL Lymphocytes # 0.9 L (1.0-4.8) k/uL APTT 18.4 L (22.0-30.0) sec Sodium 134 L (137-145) mmol/L BUN 6 L (7-17) mg/dL Creatinine 0.49 L (0.52-1.04) mg/dL Glucose 348 H (74-99) mg/dL POC Glucose (mg/dL) (75-99) mg/dL Calcium 8.2 L (8.4-10.2) mg/dL Alkaline Phosphatase 183 H (38-126) U/L C-Reactive Protein 23.9 H (<10.0) mg/L Coronavirus (PCR) (Not Detectd) 10/22/20 10/23/20 10/23/20 Range/Units 22:46 06:45 11:29 WBC (3.8-10.6) k/uL MCV (80.0-100.0) fL Lymphocytes # (1.0-4.8) k/uL APTT (22.0-30.0) sec Sodium (137-145) mmol/L BUN (7-17) mg/dL Creatinine (0.52-1.04) mg/dL Glucose (74-99) mg/dL POC Glucose (mg/dL) 289 H 302 H (75-99) mg/dL Calcium (8.4-10.2) mg/dL Alkaline Phosphatase (38-126) U/L C-Reactive Protein (<10.0) mg/L Coronavirus (PCR) Detected A (Not Detectd) Chest x-ray: report reviewed Thrombosis Risk Factor Assmnt - DVT/VTE Prophylaxis DVT/VTE Prophylaxis: Pharmacologic Prophylaxis ordered - Choose All That Apply Each Factor Represents 1 point: Age 41-60 years, Obesity (BMI >25) Thrombosis Risk Factor Assessment Total Risk Factor Score: 2 Thrombosis Risk Factor Assessment Level: Low Risk Assessment and Plan Assessment: COVID 19 infection -No signs of infiltrate on chest x-ray -Follow Covid laboratory markers -Start colchicine 0.6 mg twice daily for 3 days followed by 0.6 mg daily for the next 21 days. -Zinc, vitamin C, vitamin D, Pepcid, and melatonin -Patient will be weaned off of oxygen onto room air. Her room air SpO2 be less than 94% consistently she would be a candidate for Decadron and Remedesivir Diabetes mellitus type 2 -Patient is on U5 100 at home this will be converted to long-acting Levemir 20 units in a.m. and 40 units in p.m. with sliding scale insulin -Follow blood sugars -Hemoglobin A1c 11.5, will recheck COPD without exacerbation with chronic hypoxic respiratory failure -Resume home inhalers -Pulmonary hygiene Hypertension -controlled -Cozaamarjit, Josezem, Lopressor Chronic: Dyslipidemia Sleep apnea Chronic pain DVT prophylaxis: Lovenox Discussed with: Patient, nursing Anticipated discharge date: 1-[address]: Home A total of 25 minutes was spent on the care of this complex patient more than 50% of the time was spent in counseling and care coordination.
[2020-10-23 15:01] LABS: Hemoglobin A1C 11.9 % (4.0-6.0)
[2020-10-23] MEDS: ALBUTEROL HFA INHALER INHALATION PRN ×2 (15:53→20:31)
[2020-10-23 16:43] LABS: Glucose,Whole Blood 292 mg/dL (75-99)
[2020-10-23] MEDS: ACETAMINOPHEN TAB 500 MG TAB PO PRN (17:09)
[2020-10-23] MEDS: SYMBICORT 80-4.5 MCG INHALER INHALATION SCH (20:32)
[2020-10-23 20:48] LABS: Glucose,Whole Blood 254 mg/dL (75-99)
[2020-10-23] MEDS ORDERED: ATORVASTATIN 80 MG TAB PO SCH (21:00)
[2020-10-23] MEDS ORDERED: MELATONIN 5 MG TABLET PO SCH (21:00)
[2020-10-23] MEDS ORDERED: INSULIN DETEMIR (LEVEMIR) 100 UNIT/ML SYR SQ SCH (21:00)
[2020-10-23] MEDS ORDERED: LATANOPROST 0.005% OPHTH DROPS 2.5 ML BTL BOTH EYES SCH (21:00)
[2020-10-23] MEDS ORDERED: MONTELUKAST 10 MG TAB PO SCH (21:00)
[2020-10-24] MEDS: ACETAMINOPHEN TAB 500 MG TAB PO PRN (02:55)
[2020-10-24] MEDS ORDERED: INSULIN DETEMIR (LEVEMIR) 100 UNIT/ML SYR SQ SCH (07:00)
[2020-10-24 07:07] LABS: Glucose,Whole Blood 305 mg/dL (75-99)
[2020-10-24] MEDS: LOSARTAN 25 MG TAB PO SCH (07:27)
[2020-10-24] MEDS: LORATADINE 10 MG TAB PO SCH (07:27)
[2020-10-24] MEDS: METOPROLOL TARTRATE 25 MG TAB PO SCH (07:27)
[2020-10-24] MEDS: FUROSEMIDE 20 MG TAB PO SCH (07:27)
[2020-10-24] MEDS: DIGOXIN 250 MCG TAB PO SCH (07:28)
[2020-10-24] MEDS: ASCORBIC ACID 500 MG TAB PO SCH (07:28)
[2020-10-24] MEDS: DILTIAZEM CD 180 MG CAP.ER.24H PO SCH (07:28)
[2020-10-24] MEDS: ZINC SULFATE 220 MG CAP PO SCH (07:28)
[2020-10-24] MEDS: COLCHICINE 0.6 MG EACH PO SCH (07:28)
[2020-10-24] MEDS: FAMOTIDINE 20 MG TAB PO SCH (07:28)
[2020-10-24] MEDS: CHOLECALCIFEROL 25 MCG (1000 IU) TABLET PO SCH (07:28)
[2020-10-24] MEDS: ENOXAPARIN 40 MG/0.4 ML SYRINGE SQ SCH (07:29)
[2020-10-24] MEDS: INSULIN ASPART (NovoLOG) 100 UNIT/ML VIAL SQ SCH ×2 (07:29→12:50)
[2020-10-24] MEDS: ALBUTEROL HFA INHALER INHALATION PRN ×2 (07:44→11:03)
[2020-10-24] MEDS: SYMBICORT 80-4.5 MCG INHALER INHALATION SCH (07:44)
[2020-10-24] MEDS ORDERED: MULTIVITAMINS, THERA 1 EACH TAB PO SCH (09:00)
[2020-10-24] MEDS ORDERED: ASPIRIN 81 MG PO SCH (09:00)
[2020-10-24] MEDS ORDERED: CLOPIDOGREL 75 MG TAB PO SCH (09:00)
[2020-10-24 09:33] LABS: Basophils # (A) 0.01 X 10*3/uL (0.00-0.10); Basophils % (A) 0.3 %; Eosinophils # (A) 0.03 X 10*3/uL (0.04-0.35); HCT 37.8 % (37.2-46.3); HGB 11.4 g/dL (12.0-15.0); Lymphocytes # (A) 0.68 X 10*3/uL (0.90-5.00); Lymphocytes % (A) 23.1 %; MCH 24.6 pg (27.0-32.0); MCHC 30.2 g/dL (32.0-37.0); MCV 81.6 fL (80.0-97.0); Mean Platelet Volume 10.5 fL (9.5-12.2); Monocytes # (A) 0.26 X 10*3/uL (0.20-1.00); Monocytes % (A) 8.8 %; Neutrophils # (A) 1.95 X 10*3/uL (1.80-7.70); Neutrophils % (A) 66.1 %; Platelet Count 242 X 10*3/uL (140-440); RBC 4.63 X 10*6/uL (4.10-5.20); RDW 13.1 % (11.5-14.5); WBC 2.95 X 10*3/uL (4.50-10.00)
[2020-10-24 10:13] LABS: Ferritin 159.9 ng/mL (10.0-291.0)
[2020-10-24 10:21] LABS: African American GFR (CKD) 95.5 (60.0-200.0); Albumin 3.6 g/dL (3.80-4.90); Albumin/Globulin Ratio 1.5 (1.60-3.17); C Reactive Protein 8.2 mg/dL (0.0-0.8); Globulin 2.4 g/dL (1.6-3.3); Magnesium 1.8 mg/dL (1.5-2.4); Non-African American GFR(CKD) 82.4 (60.0-200.0); Phosphorus 2.9 mg/dL (2.4-5.1); Potassium 3.8 mmol/L (3.5-5.5); Total Bilirubin 0.4 mg/dL (0.3-1.2)
[2020-10-24] MEDS: HYDROcodone/APAP 10-325MG 1 EACH TAB PO PRN (10:30)
[2020-10-24 11:49] LABS: Glucose,Whole Blood 282 mg/dL (75-99)
[2020-10-24 12:08] VITALS: BP 93/58; PULSE 77; RESP 16; TEMP 100.7
[2020-10-24 12:43] VITALS: BMI 55.9
--- NOTE | 2020-10-24 12:45 | CDI ---
Documentation Clarification Form Date: 10/24/2020 12:19:59 PM From: Marianne Logan RN, CCDS Admit Date: 10/23/2020 03:24:00 PM Patient Name: Jameson Condon Visit Number: [id number] Discharge Date: ATTENTION: The Clinical Documentation Specialists (CDI) and [facility] Coding Staff appreciate your assistance in clarifying documentation. Please respond to the clarification below the line at the bottom and electronically sign. The CDI & [facility] Coding staff will review the response and follow-up if needed. Please note: Queries are made part of the Legal Health Record. If you have any questions, please contact the author of this message via ITS. Dr. Dhara Otoole Asthma is documented in the past medical history and 10/23, ED clinical impression as asthma exacerbation. Please render your opinion on the asthma exacerbation and severity if known. History/risk factors: Asthma, COPD, Sleep Apnea/CPAP/BIPAP, Coronary Artery Disease Clinical Indicators: 54-year-old female present to ED on 10/23 for evaluation of shortness of breath chest tightness, fatigue, overall generalized body aches and pains. She was ruled in for coronavirus infection. H/P documents COPD on /L chronically 10/23 CXR: No signs of inflammation 10/23 Vital Signs: 163/80 86 21 98.9 98 % RA 2/ Labs: WBC 3.6, Coronavirus Detected Treatment: Monitor O2 Sats (titrate) Ventolin Inhaler 2 puff inhalation qid prn Symbicor 80-4.5 2 puff inhalation bid bryant Singulair 10 mg po hs bryant Claritin 10 mg po daily Pulmonary hygiene In your professional opinion, can you please further specify the following, if known? Asthma Exacerbation ruled in Asthma Exacerbation ruled out History of Asthma (specify severity) Other, please specify ___ Unable to determine Severity Mild intermittent Mild persistent Moderate persistent Severe persistent Other, please specify ____ Unable to determine Form or Type Cough variant Childhood Exercise induced bronchospasm Extrinsic allergic Idiosyncratic Intrinsic nonallergic Late-onset Mixed Other, please specify____ Unable to determine (Last Revision: December 2017) mild persistent asthma, without exacerbation MTDD
--- NOTE | 2020-10-24 14:45 | P.DS ---
Providers Date of admission: 10/23/20 15:24 Expected date of discharge: 10/24/20 Attending physician: Moreno Gallagher MD Primary care physician: Dipak [facility] Hospital Course: Discharge Diagnosis: COVID-19 URI DM 2 Asthma without exacerbation Chronic hypoxic respiratory failure VU on BiPAP Hypertension Dyslipidemia Coronary artery disease Chronic pain Hospital Course: Patient is a 54 yo AAF with type II DM, hypertension, hyperlipidemia, COPD on 2 L chronically, and coronary artery disease who presented to the emergency department with complaints of body aches, chest tightness, and fatigue. She was found to be COVID positive. Her CXR showed no signs of inflammation. Her laboratory analysis showed a slightly elevated CRP at 23.6. Due to her high risk nature she was subsequently admitted for monitoring. She was started on zinc, vitamin C, and Pepcid. On the morning after admission she was satting 97% on 2 L nasal cannula and was subsequently downgraded to room air. She was started on cholicine therapy as she was not requiring oxygen and has been admitted for concerns of worsening respiratory distress. She continue to do well. She was down to room air to maintain an O2 sat above 94%, and she typically takes 2 L at home. She was determined stable for discharge home. Her C-reactive protein had decreased from 23.9-8.2. She was given a pulse oximeter and told to return should her pulse ox be less than 92% on her typical 2 L nasal cannula. She'll follow-up with her primary care physician. She was discharged in stable condition. Patient seen and examined at bedside. Vital signs reviewed and stable. General: non toxic, no distress, appears at stated age Derm: warm, dry Head: atraumatic, normocephalic, symmetric Eyes: EOMI, no lid lag, anicteric sclera Mouth: no lip lesion, mucus membranes moist Cardiovascular: S1S2 reg, no murmur, positive posterior tibial pulse bilateral, Lungs: CTA bilateral, no rhonchi, no rales , no accessory muscle use Abdominal: soft, nontender to palpation, no guarding, no appreciable organomegaly Ext: no gross muscle atrophy, no edema, no contractures Neuro: CN II-XI grossly intact, no focal neuro deficits Psych: Alert, oriented, appropriate affect A total of 35 minutes of time were spent preparing this complex discharge summary . Patient Condition at Discharge: Stable Plan - Discharge Summary Discharge Rx Participant: Yes New Discharge Prescriptions: New Colchicine [Colcrys] 0.6 mg PO DAILY #31 each Melatonin 10 mg PO HS #30 tablet Zinc Sulfate [Orazinc] 220 mg PO DAILY #30 cap Ascorbic Acid [Vitamin C] 1,000 mg PO DAILY #30 tab Continue Mometasone/Formoterol [Dulera 100 Mcg-5 Mcg Inhaler] 2 puff INHALATION RT-BID Albuterol Nebulized [Ventolin Nebulized] 2.5 mg INHALATION RT-TID PRN PRN Reason: Shortness Of Breath Latanoprost/Pf [Latanoprost 0.005% Eye Drop] 1 drop BOTH EYES HS Diltiazem Cd [Cardizem CD] 180 mg PO DAILY #30 cap.er.24h Loratadine [Claritin] 10 mg PO DAILY #30 tab Digoxin [Lanoxin] 250 mcg PO DAILY #30 tab Pantoprazole [Protonix] 40 mg PO AC-BRKFST #30 tablet.dr Acetaminophen Tab [Tylenol] 1,000 mg PO Q6HR PRN #120 tab PRN Reason: Fever and/ or Mild Pain Atorvastatin [Lipitor] 80 mg PO HS 30 Days #30 tab Multivitamins, Thera [Multivitamin (formulary)] 1 tab PO DAILY #30 tab Montelukast Sodium [Singulair] 10 mg PO HS #30 tab Aspirin 81 mg PO DAILY #30 chew Clopidogrel [Plavix] 75 mg PO DAILY Metoprolol Tartrate [Lopressor] 75 mg PO TID Omalizumab [Xolair] 150 mg SQ QMONTHLY Albuterol Sulfate [Proventil Hfa] 2 puff INHALATION RT-QID PRN PRN Reason: Shortness Of Breath Docusate [Colace] 100 mg PO BID Losartan [Cozaar] 25 mg PO DAILY Cholecalciferol [Vitamin D3 (25 Mcg = 1000 Iu)] 50 mcg PO DAILY Budesonide [Pulmicort] 1 mg INHALATION RT-BID HYDROcodone/APAP 10-325MG [Patterson 10-325] 1 tab PO TID PRN PRN Reason: Pain Furosemide [Lasix] 60 mg PO BID Insulin Regular, Human [humulin R U-500 Kwikpen] 50 unit SQ TID Discontinued Amoxicillin 875 mg PO Q12HR Discharge Medication List Mometasone/Formoterol [Dulera 100 Mcg-5 Mcg Inhaler] 2 puff INHALATION RT-BID 07/26/18 [History] Albuterol Nebulized [Ventolin Nebulized] 2.5 mg INHALATION RT-TID PRN 03/31/19 [History] Latanoprost/Pf [Latanoprost 0.005% Eye Drop] 1 drop BOTH EYES HS 06/12/19 [History] Acetaminophen Tab [Tylenol] 1,000 mg PO Q6HR PRN #120 tab 06/29/19 [Rx] Atorvastatin [Lipitor] 80 mg PO HS 30 Days #30 tab 06/29/19 [Rx] Digoxin [Lanoxin] 250 mcg PO DAILY #30 tab 06/29/19 [Rx] Diltiazem Cd [Cardizem CD] 180 mg PO DAILY #30 cap.er.24h 06/29/19 [Rx] Loratadine [Claritin] 10 mg PO DAILY #30 tab 06/29/19 [Rx] Montelukast Sodium [Singulair] 10 mg PO HS #30 tab 06/29/19 [Rx] Multivitamins, Thera [Multivitamin (formulary)] 1 tab PO DAILY #30 tab 06/29/19 [Rx] Pantoprazole [Protonix] 40 mg PO AC-BRKFST #30 tablet.dr 06/29/19 [Rx] Aspirin 81 mg PO DAILY #30 chew 07/18/19 [Rx] Clopidogrel [Plavix] 75 mg PO DAILY 07/23/19 [History] Metoprolol Tartrate [Lopressor] 75 mg PO TID 08/27/19 [History] Albuterol Sulfate [Proventil Hfa] 2 puff INHALATION RT-QID PRN 10/23/20 [History] Budesonide [Pulmicort] 1 mg INHALATION RT-BID 10/23/20 [History] Cholecalciferol [Vitamin D3 (25 Mcg = 1000 Iu)] 50 mcg PO DAILY 10/23/20 [History] Docusate [Colace] 100 mg PO BID 10/23/20 [History] Furosemide [Lasix] 60 mg PO BID 10/23/20 [History] HYDROcodone/APAP 10-325MG [Patterson 10-325] 1 tab PO TID PRN 10/23/20 [History] Insulin Regular, Human [humulin R U-500 Kwikpen] 50 unit SQ TID 10/23/20 [History] Losartan [Cozaar] 25 mg PO DAILY 10/23/20 [History] Omalizumab [Xolair] 150 mg SQ QMONTHLY 10/23/20 [History] Ascorbic Acid [Vitamin C] 1,000 mg PO DAILY #30 tab 10/24/20 [Rx] Colchicine [Colcrys] 0.6 mg PO DAILY #31 each 10/24/20 [Rx] Melatonin 10 mg PO HS #30 tablet 10/24/20 [Rx] Zinc Sulfate [Orazinc] 220 mg PO DAILY #30 cap 10/24/20 [Rx] Follow up Appointment(s)/Referral(s): [facility] [NON-STAFF] - As Needed (Call for new oxygen supplies.) [facility], [NON-STAFF] - As Needed Dipak Stanford [Primary Care Provider] - 1-2 days Patient Instructions/Handouts: Coronavirus Disease 2019 (COVID-19) Activity/Diet/Wound Care/Special Instructions: Activity: as tolerated Diet: heart healthy, carb consistent Special Instructions: Seek medical care if Pulse Ox is 92% or with your 2 liters of Oxygen Discharge Disposition: HOME SELF-CARE
[2020-10-26] MEDS ORDERED: COLCHICINE 0.6 MG EACH PO SCH (09:00)
== END 2020-10-24 15:38 | disposition home or self-care (01) ==
LOC: EC 22:14 → INTOOBSV 10-23 01:32 → 4SSUR 10-23 01:32 → INTOOBSV 10-23 15:24 → OBSVTOIN 10-23 15:24 → UNDODISIN 10-24 15:38
PROVIDERS: ADMIT Internal Medicine; ATTEND Internal Medicine
DX: U07.1 COVID-19 (principal); J96.01 Acute respiratory failure with hypoxia; E11.9 Type 2 diabetes mellitus without complications; J45.30 Mild persistent asthma, uncomplicated; G47.33 Obstructive sleep apnea (adult) (pediatric); Z99.89 Dependence on other enabling machines and devices; E78.5 Hyperlipidemia, unspecified; I25.10 Atherosclerotic heart disease of native coronary artery without angina pectoris; G89.29 Other chronic pain; J44.9 Chronic obstructive pulmonary disease, unspecified; Z99.81 Dependence on supplemental oxygen; I10 Essential (primary) hypertension; J96.11 Chronic respiratory failure with hypoxia; E87.1 Hypo-osmolality and hyponatremia; E11.319 Type 2 diabetes mellitus with unspecified diabetic retinopathy without macular edema; E66.01 Morbid (severe) obesity due to excess calories; Z68.43 Body mass index [BMI] 50.0-59.9, adult; Z79.4 Long term (current) use of insulin; Z44.9 Encounter for fitting and adjustment of unspecified external prosthetic device; H40.9 Unspecified glaucoma; Z79.51 Long term (current) use of inhaled steroids; Z79.02 Long term (current) use of antithrombotics/antiplatelets; Z79.899 Other long term (current) drug therapy; Z79.82 Long term (current) use of aspirin; Z78.9 Other specified health status; Z86.718 Personal history of other venous thrombosis and embolism; Z95.1 Presence of aortocoronary bypass graft; Z91.048 Other nonmedicinal substance allergy status; Z80.0 Family history of malignant neoplasm of digestive organs; Z82.49 Family history of ischemic heart disease and other diseases of the circulatory system; Z83.3 Family history of diabetes mellitus
CPT/HCPCS: 96376; 96372 ×2; 96375; 93005 ×2; 96374; 99285; 36415; 94660 ×2; 94640 ×4; 85379 ×2; 80053 ×2; 82728; 83605; 83615 ×2; 83735 ×2; 84100; 84484; 85025 ×2; 85610; 85730; 86140 ×2; 83036; 87635; 71045; G0378 ×2; J2270; J2405; J1650 ×2

== ENCOUNTER 2021-02-23 01:20 | Inpatient (IN) | payer OTHER ==
[2021-02-24 11:24] VITALS: BMI 55.3
[2021-02-26 20:35] VITALS: RESP 18
[2021-02-27 08:28] VITALS: BP 115/72; TEMP 98.5
[2021-02-27 11:23] VITALS: PULSE 84
== END 2021-02-27 13:40 | disposition home or self-care (01) | DRG 292 ==
LOC: EC 01:20 → 1SOBS 03:27 → 6NMEDSUR 13:27 → OBSVTOIN 02-25 14:54
PROVIDERS: ADMIT Hospitalist; ATTEND Hospitalist
DX: I11.0 Hypertensive heart disease with heart failure (principal); Z68.43 Body mass index [BMI] 50.0-59.9, adult; E66.01 Morbid (severe) obesity due to excess calories; I50.33 Acute on chronic diastolic (congestive) heart failure; E78.5 Hyperlipidemia, unspecified; G47.33 Obstructive sleep apnea (adult) (pediatric); I25.10 Atherosclerotic heart disease of native coronary artery without angina pectoris; J44.9 Chronic obstructive pulmonary disease, unspecified; G89.29 Other chronic pain; Z20.822 Contact with and (suspected) exposure to COVID-19; Z95.1 Presence of aortocoronary bypass graft; Z83.3 Family history of diabetes mellitus; Z82.49 Family history of ischemic heart disease and other diseases of the circulatory system; Z80.0 Family history of malignant neoplasm of digestive organs; Z79.899 Other long term (current) drug therapy; Z79.82 Long term (current) use of aspirin; Z79.51 Long term (current) use of inhaled steroids; Z79.4 Long term (current) use of insulin; Z79.02 Long term (current) use of antithrombotics/antiplatelets; E83.42 Hypomagnesemia; E11.65 Type 2 diabetes mellitus with hyperglycemia; E11.319 Type 2 diabetes mellitus with unspecified diabetic retinopathy without macular edema
CPT/HCPCS: 36415; 71046; 80048; 80053; 82550; 83605; 83735; 83880; 84484; 85025; 85379; 85610; 85730; 87635; 93005; 93306; 94640; 94660; 94760; 99285

== ENCOUNTER → 2021-03-24 | Outpatient (CLI) | payer OTHER ==
--- NOTE | 2021-03-24 10:01 | CT ---
EXAMINATION TYPE: CT lumbar spine wo con DATE OF EXAM: 03/24/2021 8:54 AM COMPARISON: None. HISTORY: Low back pain, right posterior rib pain CT DLP: 2594.6 mGycm Automated exposure control for dose reduction was used. Unenhanced CT of the lumbar spine was performed. Bone and soft tissue window settings are submitted as well as coronal and sagittal reconstructions. There are 5 lumbar-type vertebra. Vacuum disc phenomenon noted L5-S1 level. Vertebral body heights an d disc space heights are maintained. Alignment is satisfactory. Mild multilevel anterior and lateral spurring. Axial images show mild facet arthropathy at L3-L4 level. Axial images show mild broad disc bulge and moderate facet arthropathy and ligamentum flavum hypertro phy at L4-L5 level. Mild effacement of the anterior and posterolateral thecal sac. The bilateral neur al foramina are patent. Axial images at L5-S1 level show moderate to advanced facet arthropathy bilaterally. Small central di sc protrusion. Spinal canal is preserved. Patent bilateral neural foramina. Mild calcified plaque distal abdominal aorta extends into iliac branch vessels. IMPRESSION: Mild/moderate multilevel degenerative changes in mid to lower lumbar spine as detailed ab destineee
== END | disposition home or self-care (01) ==
LOC: RADCTMAIN 08:21
PROVIDERS: ATTEND Internal Medicine
DX: M51.36 Other intervertebral disc degeneration, lumbar region (principal); M47.817 Spondylosis without myelopathy or radiculopathy, lumbosacral region; M51.27 Other intervertebral disc displacement, lumbosacral region
CPT/HCPCS: 72131

== ENCOUNTER → 2021-04-13 | Outpatient (CLI) | payer OTHER ==
[2021-04-13 11:03] VITALS: BP 161/88; PULSE 104; RESP 18
--- NOTE | 2021-04-13 11:21 | P.CONS ---
History of Present Illness - Reason for Consult Consult date: 04/13/21 - Chief Complaint Anterior chest wall and lower back pain - History of Present Illness This is a 55-year-old morbidly obese lady with history of coronary artery disease status post CABG in 2019 and pain around the scar tissue. She also complains of lower back pain with no radiation to the lower extremities. She does feel some numbness and tingling in both feet and she has history of diabetes. Her low back pain increases by walking and there are no exacerbating factors for her anterior chest wall pain around the scar tissue. The lumbar spine computed tomography scan showed advanced facet arthropathy at the L4 5 and L5-S1 levels. The patient uses Hammond 10 mg as needed for her pain however her primary care physician start prescribing that to her and she wants us to assume this responsibility. Past Medical History Past Medical History: Asthma, Coronary Artery Disease (CAD), Diabetes Mellitus, Eye Disorder, Hyperlipidemia, Hypertension, Sleep Apnea/CPAP/BIPAP Additional Past Medical History / Comment(s): retinopathy,GLAUCOMA, chronic pain, BLOOD CLOT IN ARM 30 YEARS AGO R/T TO PICC LINE MISPLACEMENT, uses CPAP History of Any Multi-Drug Resistant Organisms: None Reported Past Surgical History: Coronary Bypass/CABG, Heart Catheterization Additional Past Surgical History / Comment(s): elective off-pump four-vessel coronary artery bypass graft surgery with left atrial appendage ligation on 06/22/2019 Past Anesthesia/Blood Transfusion Reactions: No Reported Reaction Additional Past Anesthesia/Blood Transfusion Reaction / Comm: no anesthesia Past Psychological History: No Psychological Hx Reported Additional Psychological History / Comment(s): Pt resides with family. She has home oxygen which she wears at 2L/NC ATC. She has a nebulizer. Smoking Status: Never smoker Past Alcohol Use History: None Reported Past Drug Use History: None Reported - Past Family History Father Family Medical History: Cancer Additional Family Medical History / Comment(s): Colon CA Mother Family Medical History: Diabetes Mellitus, Hypertension Brother(s) Family Medical History: Diabetes Mellitus Medications and Allergies Home Medications Medication Instructions Recorded Confirmed Type Mometasone/Formoterol [Dulera 100 2 puff INHALATION RT-BID 07/26/18 04/13/21 History Mcg-5 Mcg Inhaler] Albuterol Nebulized [Ventolin 2.5 mg INHALATION RT-TID PRN 03/31/19 04/13/21 History Nebulized] Latanoprost/Pf [Latanoprost 0.005% 1 drop BOTH EYES HS 06/12/19 04/13/21 History Eye Drop] Acetaminophen Tab [Tylenol] 1,000 mg PO Q6HR PRN #120 tab 06/29/19 04/13/21 Rx Atorvastatin [Lipitor] 80 mg PO HS 30 Days #30 tab 06/29/19 04/13/21 Rx Digoxin [Lanoxin] 250 mcg PO DAILY #30 tab 06/29/19 04/13/21 Rx Diltiazem Cd [Cardizem CD] 180 mg PO DAILY #30 cap.er.24h 06/29/19 04/13/21 Rx Loratadine [Claritin] 10 mg PO DAILY #30 tab 06/29/19 04/13/21 Rx Montelukast Sodium [Singulair] 10 mg PO HS #30 tab 06/29/19 04/13/21 Rx Multivitamins, Thera [Multivitamin 1 tab PO DAILY #30 tab 06/29/19 04/13/21 Rx (formulary)] Pantoprazole [Protonix] 40 mg PO -KFST #30 tablet.dr 06/29/19 04/13/21 Rx Clopidogrel [Plavix] 75 mg PO DAILY 07/23/19 04/13/21 History Albuterol Sulfate [Proventil Hfa] 2 puff INHALATION RT-QID PRN 10/23/20 04/13/21 History Budesonide [Pulmicort] 0.5 mg INHALATION RT-BID 10/23/20 04/13/21 History Cholecalciferol [Vitamin D3 (25 50 mcg PO DAILY 10/23/20 04/13/21 History Mcg = 1000 Iu)] Docusate [Colace] 100 mg PO BID 10/23/20 04/13/21 History HYDROcodone/APAP 10-325MG [Hammond 1 tab PO TID PRN 10/23/20 04/13/21 History 10-325] Insulin Regular, Human [humulin R 50 unit SQ AC-BRKFST 10/23/20 04/13/21 History U-500 Kwikpen] Losartan [Cozaar] 25 mg PO DAILY 10/23/20 04/13/21 History Omalizumab [Xolair] 150 mg SQ Q30D 10/23/20 04/13/21 History Ascorbic Acid [Vitamin C] 1,000 mg PO DAILY #30 tab 10/24/20 04/13/21 Rx Melatonin 10 mg PO HS #30 tablet 10/24/20 04/13/21 Rx Aspirin EC [Ecotrin Low Dose] 81 mg PO DAILY 02/23/21 04/13/21 History Insulin Regular, Human [humulin R 60 unit SQ AC-BID@1300,1800 02/23/21 04/13/21 History U-500 Kwikpen] Metoprolol Tartrate [Lopressor] 75 mg PO TID 02/23/21 04/13/21 History Bumetanide [BUMEX] 1 mg PO BID@0900,1600 30 Days #60 02/27/21 04/13/21 Rx tab Ipratropium-Albuterol Nebulize 3 ml INHALATION RT-Q4H 30 Days #90 02/27/21 04/13/21 Rx [Duoneb 0.5 mg-3 mg/3 ml Soln] ml Allergies Allergy/AdvReac Type Severity Reaction Status Date / Time mold AdvReac Itching Verified 04/08/21 14:40 dust AdvReac Mild Itching Uncoded 04/08/21 14:40 Physical Exam Vitals: Vital Signs Pulse Resp BP Pulse Ox 04/13/21 10:58 104 H 18 161/88 97 - Constitutional General appearance: morbidly obese - EENT Eyes: PERRLA - Integumentary Integumentary: no calor, no cellulitis, no cyanotic, no decreased turgor, no flushed, no jaundiced, no normal, no normal turgor, no pale, no rash, no ulcer - Neurologic Neuro exam of the lower extremities showed areflexia bilaterally, no muscle strength bilaterally, straight leg raising test negative bilaterally. Positive significant tenderness in the lumbar paravertebral musculature bilaterally. Facet loading test is positive in the lumbar spine. Well-healed scar from her previous CABG surgery on the anterior chest area. There is slight allodynia to touch in the middle of her scar but Tinel's sign is negative. There is mild tenderness with palpation around her anterior chest wall scar. Neurologic: CNII-XII intact - Psychiatric Psychiatric: A&O x's 3, appropriate affect, intact judgment & insight Assessment and Plan Plan: This is a 55-year-old lady with mostly axial lower back pain and anterior chest wall pain around the scar tissue from her CABG surgery. Diagnoses: Morbid obesity Diabetes Coronary artery disease with treatment with Plavix Lumbar spondylosis without myelopathy Possible diabetic peripheral neuropathy Anterior chest wall pain around her CABG surgery with no signs for nerve entrapment I will schedule the patient to have the diagnostic lumbar medial branch block at the L4 5 and L5-S1 level bilaterally. I will place the patient on Neurontin 300 mg at night as a trial for her anterior chest wall pain. The patient used to be on Hammond 10 mg as needed for her pain however I asked her to stop using that at this point. The patient does not need to hold Plavix for the diagnostic medial branch block however if we decided to do RFA in the future she will have to hold her Plavix for 7 days before the procedure. I thank you for the referral
== END ==
LOC: PNWHC3 10:47
PROVIDERS: ATTEND Anesthesiology
DX: M47.816 Spondylosis without myelopathy or radiculopathy, lumbar region (principal); E66.01 Morbid (severe) obesity due to excess calories; R07.89 Other chest pain; E11.9 Type 2 diabetes mellitus without complications; I25.10 Atherosclerotic heart disease of native coronary artery without angina pectoris; E78.5 Hyperlipidemia, unspecified; I10 Essential (primary) hypertension; J45.909 Unspecified asthma, uncomplicated; Z79.02 Long term (current) use of antithrombotics/antiplatelets; Z79.4 Long term (current) use of insulin; Z79.51 Long term (current) use of inhaled steroids; Z79.82 Long term (current) use of aspirin; Z79.899 Other long term (current) drug therapy; Z95.1 Presence of aortocoronary bypass graft; Z91.048 Other nonmedicinal substance allergy status
CPT/HCPCS: 99211

== ENCOUNTER → 2021-08-28 | Outpatient (CLI) | payer OTHER ==
[2021-08-28 23:09] LABS: Basophils # (A) 0.05 X 10*3/uL (0.00-0.10); Eosinophils # (A) 0.46 X 10*3/uL (0.04-0.35); Eosinophils % (A) 9.2 %; HCT 42.5 % (37.2-46.3); HGB 12.4 g/dL (12.0-15.0); Lymphocytes # (A) 1.56 X 10*3/uL (0.90-5.00); Lymphocytes % (A) 31.1 %; MCH 24.9 pg (27.0-32.0); MCHC 29.2 g/dL (32.0-37.0); MCV 85.3 fL (80.0-97.0); Mean Platelet Volume 10.4 fL (9.5-12.2); Monocytes # (A) 0.43 X 10*3/uL (0.20-1.00); Monocytes % (A) 8.6 %; Neutrophils # (A) 2.48 X 10*3/uL (1.80-7.70); Neutrophils % (A) 49.5 %; Platelet Count 349 X 10*3/uL (140-440); RBC 4.98 X 10*6/uL (4.10-5.20); RDW 13.7 % (11.5-14.5); WBC 5.01 X 10*3/uL (4.50-10.00)
[2021-08-29 01:30] LABS: ALT 26 U/L (8-44); AST 16 U/L (13-35); African American GFR (CKD) 114.4 (60.0-200.0); Albumin 3.6 g/dL (3.8-4.9); Albumin/Globulin Ratio 1.24 (1.60-3.17); Alkaline Phosphatase 176 U/L (41-126); BUN/Creat Ratio 13.32 Ratio (12.00-20.00); Blood Urea Nitrogen 8.6 mg/dL (9.0-27.0); Carbon Dioxide 22.4 mmol/L (20.0-27.5); Chloride 103 mmol/L (96-109); Globulin 2.9 g/dL (1.6-3.3); Glucose 132 mg/dL (70-110); Non-African American GFR(CKD) 98.7 (60.0-200.0); Potassium 4.2 mmol/L (3.5-5.5); Sodium 138 mmol/L (135-145); Total Protein 6.5 g/dL (6.2-8.2)
[2021-08-29 01:45] LABS: Digoxin <0.3 ng/mL (0.8-2.0)
== END | disposition home or self-care (01) ==
LOC: LABWHC1 14:42
PROVIDERS: ATTEND Internal Medicine
DX: I10 Essential (primary) hypertension (principal); E55.9 Vitamin D deficiency, unspecified; E11.65 Type 2 diabetes mellitus with hyperglycemia
CPT/HCPCS: 36415; 80053; 80162; 82306; 83036; 84443; 85025

== ENCOUNTER 2022-04-24 13:31 | Inpatient (IN) | payer OTHER ==
[2022-04-24] MEDS ORDERED: NITROGLYCERIN SL TABS 0.4 MG TAB SUBLINGUAL STA (13:54)
[2022-04-24] MEDS ORDERED: diphenhydrAMINE 50 MG/ML 1 ML VIAL IVP STA (13:54)
[2022-04-24] MEDS ORDERED: SODIUM CHLORIDE 0.9% 500 ML 500 ML IV ONE (13:55)
[2022-04-24] MEDS ORDERED: ACETAMINOPHEN TAB 325 MG TAB PO STA (13:56)
[2022-04-24] MEDS ORDERED: IBUPROFEN 800 MG TAB PO STA (13:56)
--- NOTE | 2022-04-24 14:00 | ED ---
General Adult HPI - General Chief complaint: Headache Stated complaint: headache, chest pain Time Seen by Provider: 04/24/22 13:43 Source: patient Mode of arrival: wheelchair - History of Present Illness Initial comments: 56-year-old female presents to the emergency room with complaints of 2 days of body aches, cough, sore throat and headache after exposed to her daughter last week who has coronavirus and is currently hospitalized. She states her symptoms are worsening so she decided to come to the emergency room. Upon arrival she is complaining of squeezing midsternal chest pain. She denies any nausea vomiting or diarrhea. No diaphoresis. No fevers. She states she does have a productive cough but does not know what it looks like. Patient does have a history of ast hma, coronary artery disease with coronary artery bypass graft, hypertension, diabetes and chronic pain. -: days(s) (2) Location: head, chest Radiation: non-radiation Severity scale (1-10): 8 Quality: other (squeezing) Consistency: constant Improves with: none Worsens with: none Associated Symptoms: cough, headaches, malaise, other (Sore throat, body aches) Treatments Prior to Arrival: Aspirin, other - Related Data Home Medications Medication Instructions Recorded Confirmed Albuterol Nebulized [Ventolin 2.5 mg INHALATION RT-Q6H PRN 03/31/19 04/24/22 Nebulized] Latanoprost/Pf [Latanoprost 0.005% 1 drop BOTH EYES HS 06/12/19 04/24/22 Eye Drop] Clopidogrel [Plavix] 75 mg PO DAILY 07/23/19 04/24/22 Docusate [Colace] 100 mg PO DAILY 10/23/20 04/24/22 Insulin Regular, Human [humulin R See Protocol SQ AC-TID 10/23/20 04/24/22 U-500 Kwikpen] Omalizumab [Xolair] 150 mg SQ Q14D 10/23/20 04/24/22 Metoprolol Tartrate [Lopressor] 75 mg PO BID 02/23/21 04/24/22 Albuterol Sulfate [Ventolin HFA] 2 puff INHALATION RT-Q6H PRN 04/24/22 04/24/22 Baclofen 10 mg PO TID PRN 04/24/22 04/24/22 Mometasone/Formoterol [Dulera 200 1 puff INHALATION RT-BID 04/24/22 04/24/22 Mcg-5 Mcg Inhaler] Omalizumab [Xolair] 75 mg SQ Q14D 04/24/22 04/24/22 Spironolactone [Aldactone] 25 mg PO DAILY 04/24/22 04/24/22 Previous Rx's Medication Instructions Recorded Diltiazem Cd [Cardizem CD] 180 mg PO DAILY #30 cap.er.24h 06/29/19 Loratadine [Claritin] 10 mg PO DAILY #30 tab 06/29/19 Montelukast Sodium [Singulair] 10 mg PO HS #30 tab 06/29/19 Pantoprazole [Protonix] 40 mg PO AC-BRKFST #30 tablet. 06/29/19 Allergies Allergy/AdvReac Type Severity Reaction Status Date / Time mold AdvReac Itching Verified 04/24/22 16:02 dust AdvReac Mild Itching Uncoded 04/24/22 13:41 Review of Systems ROS Statement: Those systems with pertinent positive or pertinent negative responses have been documented in the HPI. ROS Other: All systems not noted in ROS Statement are negative. Past Medical History Past Medical History: Asthma, Coronary Artery Disease (CAD), Diabetes Mellitus, Eye Disorder, Hyperlipidemia, Hypertension, Sleep Apnea/CPAP/BIPAP Additional Past Medical History / Comment(s): retinopathy,GLAUCOMA, chronic pain, BLOOD CLOT IN ARM 30 YEARS AGO R/T TO PICC LINE MISPLACEMENT, uses CPAP History of Any Multi-Drug Resistant Organisms: None Reported Past Surgical History: Coronary Bypass/CABG, Heart Catheterization Additional Past Surgical History / Comment(s): elective off-pump four-vessel coronary artery bypass graft surgery with left atrial appendage ligation on 06/22/2019, Past Anesthesia/Blood Transfusion Reactions: No Reported Reaction Additional Past Anesthesia/Blood Transfusion Reaction / Comment(s): no anesthesia Past Psychological History: No Psychological Hx Reported Smoking Status: Never smoker Past Alcohol Use History: None Reported Past Drug Use History: None Reported - Past Family History Father Family Medical History: Cancer Additional Family Medical History / Comment(s): Colon CA Mother Family Medical History: Diabetes Mellitus, Hypertension Brother(s) Family Medical History: Diabetes Mellitus General Exam General appearance: alert, in no apparent distress Head exam: Present: atraumatic, normocephalic ENT exam: Present: mucous membranes moist Neck exam: Present: normal inspection, full ROM. Absent: tenderness, meningismus Respiratory exam: Present: normal lung sounds bilaterally. Absent: respiratory distress, accessory muscle use Cardiovascular Exam: Present: regular rate GI/Abdominal exam: Present: soft. Absent: distended, tenderness Extremities exam: Present: pedal edema (Nonpitting). Absent: calf tenderness Back exam: Present: tenderness (Generalized aches). Absent: CVA tenderness (R), CVA tenderness (L), rash noted Neurological exam: Present: alert, oriented X3 Psychiatric exam: Present: normal affect, normal mood Skin exam: Present: warm, dry, normal color. Absent: cyanosis, diaphoretic, petechiae, pallor Course Vital Signs 04/24/22 04/24/22 13:34 15:06 Temperature 98.6 F Pulse Rate 95 90 Respiratory 18 15 Rate Blood Pressure 142/84 136/83 O2 Sat by Pulse 97 100 Oximetry - Reevaluation(s) Reevaluation #1: 04/24/22 15:02 Patient states that she did get some relief with the nitro sublingual. 1 inch paste will be applied. Time: 15:02 Reevaluation #2: 04/24/22 16:03 Patient with an expiratory wheeze bilaterally. She'll be given albuterol and Solu-Medrol. Time: 16:03 EKG Findings - EKG Results: EKG: sinus rhythm (Ventricular rate 92, OH interval 0.147, QRS 0.92, QTC 0.403) Medical Decision Making - Medical Decision Making 56-year-old female presents to the emergency room with complaints of headache, sore throat, and body aches that started yesterday. She did have a positive exposure to her daughter who was positive for coronavirus. She has not been vaccinated. On arrival to the emergency room she states that she has substernal chest pain that is squeezing. She does have a history of asthma, coronary artery disease, CABG, diabetes and hypertension. Patient states that she did take her aspirin at home today. She was given sublingual nitro which states improved her pain. Nitropaste was applied. Chest x-ray is negative. EKG shows sinus rhythm with no significant changes from previous. No ST elevation. Troponin is negative at 0.012. her last echo was one year ago. Her d-dimer is elevated, likely due to coronavirus. while in the emergency room patient developed a cough with expiratory wheeze bilaterally. She was given albuterol and Solu-Medrol. There is no evidence of hypoxia. Patient's magnesium level was 1.4 she was given 2 g IV. She will be admitted to the hospital for chest pain due to her significant cardiac history. Case discussed with Dr. Monroy. I did discuss results with patient and she is agreeable to this plan of care. - Lab Data Result diagrams: 04/24/22 14:26 04/24/22 16:11 Lab Results 04/24/22 04/24/22 04/24/22 Range/Units 13:55 14:26 14:26 WBC 7.3 (3.8-10.6) k/uL RBC 5.16 (3.80-5.40) m/uL Hgb 13.3 (11.4-16.0) gm/dL Hct 42.8 (34.0-46.0) % MCV 82.9 (80.0-100.0) fL MCH 25.9 (25.0-35.0) pg MCHC 31.2 (31.0-37.0) g/dL RDW 12.6 (11.5-15.5) % Plt Count 284 (150-450) k/uL MPV 7.7 Neutrophils % 73 % Lymphocytes % 11 % Monocytes % 6 % Eosinophils % 9 % Basophils % 1 % Neutrophils # 5.3 (1.3-7.7) k/uL Lymphocytes # 0.8 L (1.0-4.8) k/uL Monocytes # 0.4 (0-1.0) k/uL Eosinophils # 0.6 (0-0.7) k/uL Basophils # 0.1 (0-0.2) k/uL PT 9.8 (9.0-12.0) sec INR 0.9 (<1.2) APTT 23.3 (22.0-30.0) sec D-Dimer 0.70 H (<0.60) mg/L FEU Sodium (137-145) mmol/L Potassium (3.5-5.1) mmol/L Chloride (98-107) mmol/L Carbon Dioxide (22-30) mmol/L Anion Gap mmol/L BUN (7-17) mg/dL Creatinine (0.52-1.04) mg/dL Est GFR (CKD-EPI)AfAm (>60 ml/min/1.73 sqM) Est GFR (CKD-EPI)NonAf (>60 ml/min/1.73 sqM) Glucose (74-99) mg/dL Calcium (8.4-10.2) mg/dL Magnesium (1.6-2.3) mg/dL Total Bilirubin (0.2-1.3) mg/dL AST (14-36) U/L ALT (4-34) U/L Alkaline Phosphatase (38-126) U/L Troponin I (0.000-0.034) ng/mL Total Protein (6.3-8.2) g/dL Albumin (3.5-5.0) g/dL Coronavirus (PCR) Detected A (Not Detectd) 04/24/22 04/24/22 Range/Units 14:26 16:11 WBC (3.8-10.6) k/uL RBC (3.80-5.40) m/uL Hgb (11.4-16.0) gm/dL Hct (34.0-46.0) % MCV (80.0-100.0) fL MCH (25.0-35.0) pg MCHC (31.0-37.0) g/dL RDW (11.5-15.5) % Plt Count (150-450) k/uL MPV Neutrophils % % Lymphocytes % % Monocytes % % Eosinophils % % Basophils % % Neutrophils # (1.3-7.7) k/uL Lymphocytes # (1.0-4.8) k/uL Monocytes # (0-1.0) k/uL Eosinophils # (0-0.7) k/uL Basophils # (0-0.2) k/uL PT (9.0-12.0) sec INR (<1.2) APTT (22.0-30.0) sec D-Dimer (<0.60) mg/L FEU Sodium 134 L (137-145) mmol/L Potassium 4.1 (3.5-5.1) mmol/L Chloride 103 (98-107) mmol/L Carbon Dioxide 29 (22-30) mmol/L Anion Gap 2 mmol/L BUN 6 L (7-17) mg/dL Creatinine 0.49 L (0.52-1.04) mg/dL Est GFR (CKD-EPI)AfAm >90 (>60 ml/min/1.73 sqM) Est GFR (CKD-EPI)NonAf >90 (>60 ml/min/1.73 sqM) Glucose 144 H (74-99) mg/dL Calcium 8.3 L (8.4-10.2) mg/dL Magnesium 1.4 L (1.6-2.3) mg/dL Total Bilirubin 0.5 (0.2-1.3) mg/dL AST 14 (14-36) U/L ALT 13 (4-34) U/L Alkaline Phosphatase 178 H (38-126) U/L Troponin I <0.012 (0.000-0.034) ng/mL Total Protein 6.4 (6.3-8.2) g/dL Albumin 3.4 L (3.5-5.0) g/dL Coronavirus (PCR) (Not Detectd) Disposition Clinical Impression: COVID-19, Chest pain, Elevated d-dimer, Hypomagnesemia Disposition: ADMITTED IP TO THIS HOSP Referrals: Xavier Tineo MD [Primary Care Provider] - 1-2 days Decision Date: 04/24/22 Decision Time: 16:50
[2022-04-24 14:42] LABS: Basophils # (A) 0.1 k/uL (0-0.2); Basophils % (A) 1 %; Eosinophils # (A) 0.6 k/uL (0-0.7); Eosinophils % (A) 9 %; HCT 42.8 % (34.0-46.0); HGB 13.3 gm/dL (11.4-16.0); Lymphocytes # (A) 0.8 k/uL (1.0-4.8); Lymphocytes % (A) 11 %; MCH 25.9 pg (25.0-35.0); MCHC 31.2 g/dL (31.0-37.0); MCV 82.9 fL (80.0-100.0); Mean Platelet Volume 7.7; Monocytes # (A) 0.4 k/uL (0-1.0); Monocytes % (A) 6 %; Neutrophils # (A) 5.3 k/uL (1.3-7.7); Neutrophils % (A) 73 %; Platelet Count 284 k/uL (150-450); RBC 5.16 m/uL (3.80-5.40); RDW 12.6 % (11.5-15.5); WBC 7.3 k/uL (3.8-10.6)
[2022-04-24] MEDS ORDERED: NITROGLYCERIN OINT 1 INCH/GM PACKET TOPICAL STA (15:03)
[2022-04-24 15:04] LABS: INR 0.9 (<1.2); Partial Thromboplastin Time 23.3 sec (22.0-30.0); Prothrombin Time 9.8 sec (9.0-12.0)
[2022-04-24] MEDS ORDERED: methylPREDNISolone SOD SUCCI 125 MG/2 ML VIAL IV STA (16:02)
[2022-04-24] MEDS ORDERED: ALBUTEROL HFA INHALER INHALATION STA (16:03)
--- NOTE | 2022-04-24 16:18 | XR ---
EXAMINATION TYPE: XR chest 2V DATE OF EXAM: 04/24/2022 COMPARISON: 02/23/2021 HISTORY: Chest pain TECHNIQUE: FINDINGS: Heart is enlarged. No obvious heart failure. There are sternal wires. Costophrenic angles a re clear. IMPRESSION: Cardiomegaly. No heart failure seen. No change compared to old exam.
[2022-04-24 16:47] LABS: ALT 13 U/L (4-34); AST 14 U/L (14-36); African American GFR (CKD) >90 (>60 ml/min/1.73 sqM); Albumin 3.4 g/dL (3.5-5.0); Alkaline Phosphatase 178 U/L (38-126); Anion Gap 2 mmol/L; Blood Urea Nitrogen 6 mg/dL (7-17); Calcium 8.3 mg/dL (8.4-10.2); Carbon Dioxide 29 mmol/L (22-30); Chloride 103 mmol/L (98-107); Glucose 144 mg/dL (74-99); Magnesium 1.4 mg/dL (1.6-2.3); Non-African American GFR(CKD) >90 (>60 ml/min/1.73 sqM); Potassium 4.1 mmol/L (3.5-5.1); Sodium 134 mmol/L (137-145); Total Bilirubin 0.5 mg/dL (0.2-1.3); Total Protein 6.4 g/dL (6.3-8.2)
[2022-04-24] MEDS ORDERED: ONDANSETRON 4 MG/2 ML VIAL IVP PRN (16:57)
[2022-04-24] MEDS ORDERED: IBUPROFEN 400 MG TAB PO PRN (16:57)
[2022-04-24] MEDS ORDERED: HYDROmorphone 0.5 MG/0.5 ML SYRINGE IVP PRN (16:57)
[2022-04-24] MEDS ORDERED: NALOXONE 0.4 MG/ML 1 ML VIAL IV PRN (16:57)
[2022-04-24] MEDS ORDERED: BACLOFEN 10 MG TAB PO PRN (16:59)
[2022-04-24] MEDS ORDERED: ALBUTEROL NEBULIZED 2.5 MG/3 ML INHALATION PRN (16:59)
--- NOTE | 2022-04-24 18:23 | P.HPIM ---
History of Present Illness H&P Date: 04/24/22 Patient is a 56-year-old female with past medical history as ASCVD, hypertension, diabetes, who presents to the hospital with chest pain and headache. Patient states she started having symptoms last night. Her chest pain is located in the midsternal region does not radiate anywhere. She felt like her chest was getting squeezed. Her symptoms have since resolved. She feels the nitroglycerin patch that she got in the ED helped. Patient has not had pain like this in the past. In addition she come to his up headache that started yesterday. Patient denies any shortness of breath, repetitions, lightheadedness or dizziness. She does attest to having sore throat. Patient's daughter at [employer] is positive and she has been exposed to it. She has not received covid vaccination. Patient has a history of diabetes and states she takes Humulin N 75 units 3 times a day. I verified this with patient multiple times. She takes Plavix for her CVD. Denies any catheterization and stents since bypass. Denies any history of CHF or arrhythmias. Review of systems: 10 out of 14 systems performed negative except HPI. Pertinent positives and negatives as discussed in HPI, a complete review of systems was performed and all other systems are negative. Physical examination: Vital signs reviewed General: nontoxic, no distress, appears at stated age Derm: warm, dry Head: atraumatic, normocephalic, symmetric Eyes: EOMI, no lid lag, anicteric sclera, pupils equal round reactive to light ENT: Nose and ears atraumatic, no thrush, no pharyngeal erythema Neck: No thyromegaly, no cervical lymphadenopathy, trachea midline, supple Mouth: no lip lesion, mucus membranes moist Cardiovascular: S1S2 reg, no murmur, Lungs: clear to auscultation bilateral, no rhonchi, no rales, no wheeze, no accessory muscle use Abdominal: soft, nontender to palpation, no guarding, no appreciable organomegaly, normal bowel sounds Ext: no gross muscle atrophy, 1+ pitting edema present bilaterally, no contractures Assessment/Plan: Assessment: COVID-19 Atypical chest pain Mild hyponatremia Hypomagnesemia Status post left atrial appendage clip during CABG Severe ASCVD status post HERNDON to diagonal and LAD, left radial artery to OM, SVG to PDA-2019 Hypertension [id number] Sleep apnea Lower extremity swelling Plan: Continue clopidogrel 75 mg daily Continue metoprolol tartrate 25 mg twice a day, diltiazem 180 mg daily Continue spironolactone 25 mg daily Cardiology consultation Tylenol when necessary for pain Trend troponins Check magnesium level in a.m. 4 g magnesium sulfate IV 1 Continue home insulin regimen EKG: Rate 92. MO 147. QTC 403. Normal sinus rhythm. Normal axis. Normal ECG. Echo-02/2021: LVEF 55-60%. Moderate LVH. Small generalized pericardial effusion. LHC-05/2019: Prior to CABG Mid RCA 60-80% lesion Proximal to mid LAD 60-80% lesion. The patient is admitted with an anticipated greater than 2 midnight stay for evaluation of unsure. Surrogate decision-maker: [] CODE STATUS: Full DVT prophylaxis: Subcu heparin Discussed with: ED A total of 45 minutes was spent on the care of this complex patient more than 50% of the time was spent in counseling and care Past Medical History Past Medical History: Asthma, Coronary Artery Disease (CAD), Diabetes Mellitus, Eye Disorder, Hyperlipidemia, Hypertension, Sleep Apnea/CPAP/BIPAP Additional Past Medical History / Comment(s): retinopathy,GLAUCOMA, chronic pain, BLOOD CLOT IN ARM 30 YEARS AGO R/T TO PICC LINE MISPLACEMENT, uses CPAP History of Any Multi-Drug Resistant Organisms: None Reported Past Surgical History: Coronary Bypass/CABG, Heart Catheterization Additional Past Surgical History / Comment(s): elective off-pump four-vessel coronary artery bypass graft surgery with left atrial appendage ligation on 06/22/2019, Past Anesthesia/Blood Transfusion Reactions: No Reported Reaction Additional Past Anesthesia/Blood Transfusion Reaction / Comment(s): no anesthesia Past Psychological History: No Psychological Hx Reported Smoking Status: Never smoker Past Alcohol Use History: None Reported Past Drug Use History: None Reported - Past Family History Father Family Medical History: Cancer Additional Family Medical History / Comment(s): Colon CA Mother Family Medical History: Diabetes Mellitus, Hypertension Brother(s) Family Medical History: Diabetes Mellitus Medications and Allergies Home Medications Medication Instructions Recorded Confirmed Type Albuterol Nebulized [Ventolin 2.5 mg INHALATION RT-Q6H PRN 03/31/19 04/24/22 History Nebulized] Latanoprost/Pf [Latanoprost 0.005% 1 drop BOTH EYES HS 06/12/19 04/24/22 History Eye Drop] Diltiazem Cd [Cardizem CD] 180 mg PO DAILY #30 cap.er.24h 06/29/19 04/24/22 Rx Loratadine [Claritin] 10 mg PO DAILY #30 tab 06/29/19 04/24/22 Rx Montelukast Sodium [Singulair] 10 mg PO HS #30 tab 06/29/19 04/24/22 Rx Pantoprazole [Protonix] 40 mg PO AC-BRKFST #30 tablet.dr 06/29/19 04/24/22 Rx Clopidogrel [Plavix] 75 mg PO DAILY 07/23/19 04/24/22 History Docusate [Colace] 100 mg PO DAILY 10/23/20 04/24/22 History Insulin Regular, Human [humulin R See Protocol SQ AC-TID 10/23/20 04/24/22 History U-500 Kwikpen] Omalizumab [Xolair] 150 mg SQ Q14D 10/23/20 04/24/22 History Metoprolol Tartrate [Lopressor] 75 mg PO BID 02/23/21 04/24/22 History Albuterol Sulfate [Ventolin HFA] 2 puff INHALATION RT-Q6H PRN 04/24/22 04/24/22 History Baclofen 10 mg PO TID PRN 04/24/22 04/24/22 History Mometasone/Formoterol [Dulera 200 1 puff INHALATION RT-BID 04/24/22 04/24/22 History Mcg-5 Mcg Inhaler] Omalizumab [Xolair] 75 mg SQ Q14D 04/24/22 04/24/22 History Spironolactone [Aldactone] 25 mg PO DAILY 04/24/22 04/24/22 History Allergies Allergy/AdvReac Type Severity Reaction Status Date / Time mold AdvReac Itching Verified 04/24/22 16:02 dust AdvReac Mild Itching Uncoded 04/24/22 13:41 Physical Exam Vitals: Vital Signs Temp Pulse Resp BP Pulse Ox 04/24/22 15:06 90 15 136/83 100 04/24/22 13:34 98.6 F 95 18 142/84 97 Intake and Output 08/03/1004/24/22 04/24/22 06:59 14:59 22:59 Other: Weight 163.293 kg Results CBC & Chem 7: 04/24/22 14:26 04/24/22 16:11 Labs: Abnormal Lab Results - Last 24 Hours (Table) 04/24/22 04/24/22 04/24/22 Range/Units 13:55 14:26 14:26 Lymphocytes # 0.8 L (1.0-4.8) k/uL D-Dimer 0.70 H (<0.60) mg/L FEU Sodium (137-145) mmol/L BUN (7-17) mg/dL Creatinine (0.52-1.04) mg/dL Glucose (74-99) mg/dL Calcium (8.4-10.2) mg/dL Magnesium (1.6-2.3) mg/dL Alkaline Phosphatase (38-126) U/L Albumin (3.5-5.0) g/dL Coronavirus (PCR) Detected A (Not Detectd) 04/24/22 Range/Units 16:11 Lymphocytes # (1.0-4.8) k/uL D-Dimer (<0.60) mg/L FEU Sodium 134 L (137-145) mmol/L BUN 6 L (7-17) mg/dL Creatinine 0.49 L (0.52-1.04) mg/dL Glucose 144 H (74-99) mg/dL Calcium 8.3 L (8.4-10.2) mg/dL Magnesium 1.4 L (1.6-2.3) mg/dL Alkaline Phosphatase 178 H (38-126) U/L Albumin 3.4 L (3.5-5.0) g/dL Coronavirus (PCR) (Not Detectd)
[2022-04-24] MEDS ORDERED: NON FORMULARY DRUG (Insulin Regular, Human [Humulin R U-500 Kwikpen] 500 UNIT/ML Insuln.Pe SQ SCH (18:30)
[2022-04-24] MEDS: ACETAMINOPHEN TAB 325 MG TAB PO PRN (18:45)
[2022-04-24] MEDS: MAGNESIUM SULFATE-D5W PMX 1 GM in DEXTROSE/WATER 1 100ML.BAG IVPB SCH ×2 (18:45→20:40)
[2022-04-24 20:48] LABS: Glucose,Whole Blood 236 mg/dL (70-110)
[2022-04-24] MEDS: METOPROLOL TARTRATE 25 MG TAB PO SCH (20:48)
[2022-04-24] MEDS: HEPARIN SODIUM,PORCINE/PF 5,000 UNIT/0.5 ML SYRINGE SQ SCH (20:52)
[2022-04-24] MEDS ORDERED: MONTELUKAST 10 MG TAB PO SCH (21:00)
[2022-04-24] MEDS ORDERED: LATANOPROST 0.005% OPHTH DROPS 2.5 ML BTL BOTH EYES SCH (21:00)
[2022-04-24] MEDS: INSULIN REGULAR 100 UNIT/ML VIAL (IV) SQ SCH (21:58)
[2022-04-24] MEDS: ALBUTEROL HFA INHALER INHALATION PRN (22:02)
[2022-04-24] MEDS: SYMBICORT 160-4.5 MCG INHALER INHALATION SCH (22:03)
[2022-04-24] MEDS ORDERED: ACETAMINOPHEN TAB 500 MG TAB PO STA (22:18)
[2022-04-24] MEDS ORDERED: IBUPROFEN 400 MG TAB PO STA (22:27)
[2022-04-25] MEDS: ACETAMINOPHEN TAB 325 MG TAB PO PRN (00:35)
[2022-04-25 06:53] LABS: Basophils % (A) 0 %; Eosinophils % (A) 0 %; HCT 42.3 % (34.0-46.0); Hypochromasia Slight; Lymphocytes # (A) 0.8 k/uL (1.0-4.8); Lymphocytes % (A) 14 %; MCH 25.8 pg (25.0-35.0); MCHC 30.6 g/dL (31.0-37.0); MCV 84.2 fL (80.0-100.0); Mean Platelet Volume 7.9; Monocytes # (A) 0.2 k/uL (0-1.0); Monocytes % (A) 3 %; Neutrophils # (A) 4.6 k/uL (1.3-7.7); Neutrophils % (A) 82 %; Platelet Count 313 k/uL (150-450); RBC 5.02 m/uL (3.80-5.40); RDW 12.6 % (11.5-15.5); WBC 5.6 k/uL (3.8-10.6)
[2022-04-25 07:01] LABS: ALT 15 U/L (4-34); AST 14 U/L (14-36); African American GFR (CKD) >90 (>60 ml/min/1.73 sqM); Albumin 3.6 g/dL (3.5-5.0); Alkaline Phosphatase 168 U/L (38-126); Anion Gap 8 mmol/L; Blood Urea Nitrogen 11 mg/dL (7-17); Calcium 8.9 mg/dL (8.4-10.2); Carbon Dioxide 25 mmol/L (22-30); Chloride 101 mmol/L (98-107); Glucose 213 mg/dL (74-99); Magnesium 1.8 mg/dL (1.6-2.3); Non-African American GFR(CKD) >90 (>60 ml/min/1.73 sqM); Potassium 4.3 mmol/L (3.5-5.1); Sodium 134 mmol/L (137-145); Total Bilirubin 0.4 mg/dL (0.2-1.3); Total Protein 6.7 g/dL (6.3-8.2)
[2022-04-25 07:24] LABS: Glucose,Whole Blood 199 mg/dL (70-110)
[2022-04-25 07:28] VITALS: RESP 16
[2022-04-25] MEDS ORDERED: PANTOPRAZOLE 40 MG TABLET PO SCH (07:30)
--- NOTE | 2022-04-25 08:01 | P.CRDCN ---
History of Present Illness Consult date: 04/25/22 Chief complaint: Generalized weakness History of present illness: The patient is an 56-year-old -[place] female patient who sees Dr. Dlevalle irregularly with a past medical history significant for coronary artery disease and status post CABG where in 2019 she underwent CABG 4 with HERNDON to LAD and diagonal as well as radial graft to LCx and SVG to RCA. As well as she does have diabetes and hypertension and dyslipidemia. The patient presented to the emergency department complaining of mainly headache but also she was experiencing chest discomfort. The patient describes discomfort in the mid of the chest as a dull kind of discomfort was no radiation to the arms or neck or shoulders or back and no associated symptoms of sweating or dizziness or lightheadedness or any feeling of heart racing or fluttering or presyncope or syncope. She underwent a workup including an EKG showing sinus rhythm was no significant ST or T-wave abnormalities. She also underwent troponin and that came in to be unremarkable. D-dimer came in to be slightly elevated. The chest x-ray did not show any acute abnormalities. The patient was tested positive for COVID 19 infection. Obviously she was in contact with her daughter who has the infection. When she was seen and examined this morning she was chest pain-free but she was experiencing of severe headache. She reports no fever and no chills and no cough or sputum production and no symptoms of any nausea or vomiting or diarrhea. Past Medical History Past Medical History: Asthma, Coronary Artery Disease (CAD), Diabetes Mellitus, Eye Disorder, Hyperlipidemia, Hypertension, Sleep Apnea/CPAP/BIPAP Additional Past Medical History / Comment(s): retinopathy,GLAUCOMA, chronic pain, BLOOD CLOT IN ARM 30 YEARS AGO R/T TO PICC LINE MISPLACEMENT, uses CPAP History of Any Multi-Drug Resistant Organisms: None Reported Past Surgical History: Coronary Bypass/CABG, Heart Catheterization Additional Past Surgical History / Comment(s): elective off-pump four-vessel coronary artery bypass graft surgery with left atrial appendage ligation on 06/22/2019, Past Anesthesia/Blood Transfusion Reactions: No Reported Reaction Additional Past Anesthesia/Blood Transfusion Reaction / Comment(s): no anesthesia Past Psychological History: No Psychological Hx Reported Additional Psychological History / Comment(s): Pt resides with family. She has home oxygen which she wears at 2L/NC ATC. She has a nebulizer. Smoking Status: Never smoker Past Alcohol Use History: None Reported Past Drug Use History: None Reported - Past Family History Father Family Medical History: Cancer Additional Family Medical History / Comment(s): Colon CA Mother Family Medical History: Diabetes Mellitus, Hypertension Brother(s) Family Medical History: Diabetes Mellitus Medications and Allergies Home Medications Medication Instructions Recorded Confirmed Type Albuterol Nebulized [Ventolin 2.5 mg INHALATION RT-Q6H PRN 03/31/19 04/24/22 History Nebulized] Latanoprost/Pf [Latanoprost 0.005% 1 drop BOTH EYES HS 06/12/19 04/24/22 History Eye Drop] Diltiazem Cd [Cardizem CD] 180 mg PO DAILY #30 cap.er.24h 06/29/19 04/24/22 Rx Loratadine [Claritin] 10 mg PO DAILY #30 tab 06/29/19 04/24/22 Rx Montelukast Sodium [Singulair] 10 mg PO HS #30 tab 06/29/19 04/24/22 Rx Pantoprazole [Protonix] 40 mg PO AC-BRKFST #30 tablet.dr 06/29/19 04/24/22 Rx Clopidogrel [Plavix] 75 mg PO DAILY 07/23/19 04/24/22 History Docusate [Colace] 100 mg PO DAILY 10/23/20 04/24/22 History Insulin Regular, Human [humulin R See Protocol SQ AC-TID 10/23/20 04/24/22 History U-500 Kwikpen] Omalizumab [Xolair] 150 mg SQ Q14D 10/23/20 04/24/22 History Metoprolol Tartrate [Lopressor] 75 mg PO BID 02/23/21 04/24/22 History Albuterol Sulfate [Ventolin HFA] 2 puff INHALATION RT-Q6H PRN 04/24/22 04/24/22 History Baclofen 10 mg PO TID PRN 04/24/22 04/24/22 History Mometasone/Formoterol [Dulera 200 1 puff INHALATION RT-BID 04/24/22 04/24/22 History Mcg-5 Mcg Inhaler] Omalizumab [Xolair] 75 mg SQ Q14D 04/24/22 04/24/22 History Spironolactone [Aldactone] 25 mg PO DAILY 04/24/22 04/24/22 History Allergies Allergy/AdvReac Type Severity Reaction Status Date / Time mold AdvReac Itching Verified 04/24/22 16:02 dust AdvReac Mild Itching Uncoded 04/24/22 13:41 Physical Exam Vitals: Vital Signs Temp Pulse Pulse Resp BP BP Pulse Ox 04/25/22 07:27 97.7 F 77 16 135/68 98 04/25/22 03:40 97.6 F 87 15 132/66 94 L 04/24/22 23:30 98.2 F 86 18 164/92 98 04/24/22 20:45 89 20 112/72 94 L 04/24/22 18:50 87 16 123/64 100 04/24/22 15:06 90 15 136/83 100 04/24/22 13:34 98.6 F 95 18 142/84 97 Intake and Output 04/24/22 04/25/22 04/25/22 22:59 06:59 14:59 Intake Total 780 Balance 780 Intake: Oral 780 Other: Voiding Method Toilet # Voids 1 1 Weight 169.2 kg - Constitutional General appearance: no acute distress - Respiratory Respiratory: bilateral: CTA - Cardiovascular Rhythm: regular Heart sounds: normal: S1, S2 Abnormal Heart Sounds: systolic murmur Results 04/25/22 05:50 04/25/22 05:50 Cardiac Enzymes 04/24/22 04/24/22 04/25/22 Range/Units 14:26 16:11 05:50 AST 14 14 (14-36) U/L Troponin I <0.012 (0.000-0.034) ng/mL Coagulation 04/24/22 Range/Units 14:26 PT 9.8 (9.0-12.0) sec APTT 23.3 (22.0-30.0) sec CBC 04/24/22 04/25/22 Range/Units 14:26 05:50 WBC 7.3 5.6 (3.8-10.6) k/uL RBC 5.16 5.02 (3.80-5.40) m/uL Hgb 13.3 13.0 (11.4-16.0) gm/dL Hct 42.8 42.3 (34.0-46.0) % Plt Count 284 313 (150-450) k/uL Comprehensive Metabolic Panel 04/24/22 04/25/22 Range/Units 16:11 05:50 Sodium 134 L 134 L (137-145) mmol/L Potassium 4.1 4.3 (3.5-5.1) mmol/L Chloride 103 101 (98-107) mmol/L Carbon Dioxide 29 25 (22-30) mmol/L BUN 6 L 11 (7-17) mg/dL Creatinine 0.49 L 0.55 (0.52-1.04) mg/dL Glucose 144 H 213 H (74-99) mg/dL Calcium 8.3 L 8.9 (8.4-10.2) mg/dL AST 14 14 (14-36) U/L ALT 13 15 (4-34) U/L Alkaline Phosphatase 178 H 168 H (38-126) U/L Total Protein 6.4 6.7 (6.3-8.2) g/dL Albumin 3.4 L 3.6 (3.5-5.0) g/dL Current Medications Generic Name Dose Route Start Last Admin Trade Name Freq PRN Reason Stop Dose Admin Acetaminophen 650 mg 04/24/22 16:57 04/25/22 00:35 Acetaminophen Tab 325 Mg Tab PO 650 mg Q6HR PRN Administration Mild Pain or Fever > 100.5 Albuterol Sulfate 2.5 mg 04/24/22 16:59 Albuterol Nebulized 2.5 Mg/3 Ml INHALATION RT-Q6H PRN Shortness Of Breath Albuterol Sulfate 2 puff 04/24/22 16:59 04/24/22 22:02 Albuterol Hfa Inhaler INHALATION 2 puff RT-Q6H PRN Administration Shortness Of Breath Baclofen 10 mg 04/24/22 16:59 04/24/22 20:49 Baclofen 10 Mg Tab PO 10 mg TID PRN Administration Muscle Spasm Budesonide/Formoterol Fumarate 2 puff 04/24/22 20:00 04/24/22 22:03 Symbicort 160-4.5 Mcg Inhaler INHALATION 2 puff RT-BID YESSENIA Administration Clopidogrel Bisulfate 75 mg 04/25/22 09:00 Clopidogrel 75 Mg Tab PO DAILY YESSENIA Diltiazem HCl 180 mg 04/25/22 09:00 Diltiazem Cd 180 Mg Cap.Er.24h PO DAILY [facility] Docusate Sodium 100 mg 04/25/22 09:00 Docusate 100 Mg Cap PO DAILY [facility] Heparin Sodium (Porcine) 5,000 unit 04/24/22 21:00 04/24/22 20:52 Heparin Sodium,Porcine/Pf 5,000 Unit/0.5 Ml Syringe SQ 5,000 unit Q12HR YESSENIA Administration Ibuprofen 400 mg 04/24/22 16:57 04/25/22 06:27 Ibuprofen 400 Mg Tab PO 400 mg Q6HR PRN Administration Mild Pain or Fever > 100.5 Insulin Human Regular 70 unit 04/24/22 22:00 04/24/22 21:58 Insulin Regular 100 Unit/Ml Vial (Iv) SQ 70 unit TID YESSENIA Administration Latanoprost 1 drops 04/24/22 21:00 04/24/22 22:02 Latanoprost 0.005% Ophth Drops 2.5 Ml Btl BOTH EYES 1 drops HS YESSENIA Administration Loratadine 10 mg 04/25/22 09:00 Loratadine 10 Mg Tab PO DAILY [facility] Metoprolol Tartrate 75 mg 04/24/22 21:00 04/24/22 20:48 Metoprolol Tartrate 25 Mg Tab PO 75 mg BID YESSENIA Administration Montelukast Sodium 10 mg 04/24/22 21:00 04/24/22 20:48 Montelukast 10 Mg Tab PO 10 mg HS YESSENIA Administration Naloxone HCl 0.2 mg 04/24/22 16:57 Naloxone 0.4 Mg/Ml 1 Ml Vial IV Q2M PRN Opioid Reversal Ondansetron HCl 4 mg 04/24/22 16:57 Ondansetron 4 Mg/2 Ml Vial IVP Q8HR PRN Nausea And Vomiting Pantoprazole Sodium 40 mg 04/25/22 07:30 04/25/22 06:27 Pantoprazole 40 Mg Tablet PO 40 mg AC-BRKFST [facility] Administration Spironolactone 25 mg 04/25/22 09:00 Spironolactone 25 Mg Tab PO DAILY [facility] Intake and Output 04/24/22 04/25/22 04/25/22 22:59 06:59 14:59 Intake Total 780 Balance 780 Intake: Oral 780 Other: Voiding Method Toilet # Voids 1 1 Weight 169.2 kg 04/25/22 05:50 04/25/22 05:50 Assessment and Plan Assessment: Assessment #1 COVID 19 infection #2 chest discomfort appeared to be atypical for angina #3 known coronary artery disease and status post CABG as described above #4 morbid obesity #5 diabetes #Hypertension #7 dyslipidemia #8 multiple comorbid conditions Plan #1 continue the current medical regimen including antiplatelet as well as anti- ischemic medications #2 the patient currently is chest pain-free. The EKG showed no ischemic changes. We will follow-up with the serial cardiac enzymes #3 consider medical treatment for the chest discomfort. To be investigated as an outpatient as far as the patient stating asymptomatic #4 rule out pulmonary embolism. The d-dimer came in to be slightly elevated which could be related to COVID #5 follow-up with the patient
[2022-04-25] MEDS: ALBUTEROL HFA INHALER INHALATION PRN ×2 (08:16→15:55)
[2022-04-25] MEDS: SYMBICORT 160-4.5 MCG INHALER INHALATION SCH (08:16)
[2022-04-25] MEDS ORDERED: DOCUSATE 100 MG CAP PO SCH (09:00)
[2022-04-25] MEDS ORDERED: CLOPIDOGREL 75 MG TAB PO SCH (09:00)
[2022-04-25] MEDS ORDERED: LORATADINE 10 MG TAB PO SCH (09:00)
[2022-04-25] MEDS ORDERED: DILTIAZEM CD 180 MG CAP.ER.24H PO SCH (09:00)
[2022-04-25] MEDS ORDERED: SPIRONOLACTONE 25 MG TAB PO SCH (09:00)
[2022-04-25] MEDS: METOPROLOL TARTRATE 25 MG TAB PO SCH (10:35)
[2022-04-25] MEDS: HEPARIN SODIUM,PORCINE/PF 5,000 UNIT/0.5 ML SYRINGE SQ SCH (10:36)
[2022-04-25] MEDS: INSULIN REGULAR 100 UNIT/ML VIAL (IV) SQ SCH (11:16)
[2022-04-25 12:07] LABS: Glucose,Whole Blood 254 mg/dL (70-110)
--- NOTE | 2022-04-25 13:20 | CT ---
EXAMINATION TYPE: CT angio chest CT DLP: 1142.4 mGycm, Automated exposure control for dose reduction was used. DATE OF EXAM: 04/25/2022 12:51 PM COMPARISON: CT chest 09/06/2019, chest radiographic 04/24/2022. CLINICAL INDICATION:Female, 56 years old with history of PE rule out.; Chest pains, cough, COVID TECHNIQUE/CONTRAST: CTA scan of the thorax is performed with IV Contrast, patient injected with 100 mL of Isovue 370, pul monary embolism protocol. MIP images are created and reviewed. FINDINGS: Pulmonary Artery: There is no evidence for a central filling defect within the pulmonary vasculature to suggest acute pulmonary embolism. Limited evaluation of the segmental and subsegmental branches se condary to bolus timing. The pulmonary artery is enlarged measuring up to 3.7 cm. Lungs/Pleura: No evidence of focal consolidation, pleural effusion or pneumothorax. Airway: Large airways are patent. Heart: Heart is moderately enlarged for size. There is scattered post CABG changes with severe luis ry artery atherosclerosis. Vasculature: No evidence of aortic aneurysm. Mediastinum: No gross evidence of adenopathy. Musculoskeletal: No acute osseous abnormalities, multilevel disc degeneration changes are seen throug hout the spine Soft Tissues: Unremarkable. Lower neck: No significant findings. Upper Abdomen: No significant findings. IMPRESSION: 1. Limited exam for central pulmonary pulmonary vascularity without evidence for filling defect. 2. Cardiomegaly with post CABG changes and severe coronary artery atherosclerosis. 3. Findings suggestive of pulmonary hypertension.
--- NOTE | 2022-04-25 13:43 | P.DS ---
Providers Date of admission: 04/24/22 22:23 Expected date of discharge: 04/25/22 Attending physician: Zuleika Ramon MD Consults: 04/24/22 16:57 Consult Physician Routine Consulting Provider: Niels Lundy Consult Reason/Comments: chest pain Do you want consulting provider notified?: Yes, Notify in am Primary care physician: Xavier Tineo MD - Discharge Diagnosis(es) (1) COVID-19 Current Visit: Yes Status: Acute (2) Chest pain Current Visit: Yes Status: Acute (3) Hypomagnesemia Current Visit: Yes Status: Acute Hospital Course: Patient is a 56-year-old female with past medical history as ASCVD, hypertension, diabetes, who presents to the hospital with chest pain and headache. Patient states she started having symptoms last night. Her chest pain is located in the midsternal region does not radiate anywhere. She felt like her chest was getting squeezed. Her symptoms have since resolved. She feels the nitroglycerin patch that she got in the ED helped. Patient has not had pain like this in the past. In addition she come to his up headache that started yesterday. Patient denies any shortness of breath, repetitions, lighth eadedness or dizziness. She does attest to having sore throat. Patient's daughter at [facility] is positive and she has been exposed to it. She has not received covid vaccination. Patient has a history of diabetes and states she takes Humulin N 75 units 3 times a day. I verified this with patient multiple times. She takes Plavix for her CVD. Denies any catheterization and stents since bypass. Denies any history of CHF or arrhythmias. During the hospitalization patient was feeling fine. Denies any shortness of breath, palpitations, lightheadedness or dizziness. Patient vitals remained sta ble. Troponin trends continue to be negative. Cardiology saw the patient who planned to do an outpatient workup for her chest pain. Patient was cleared for discharge as she has been asymptomatic. Patient had elevated D dimers as a result CT A of the chest PE protocol was performed which came back as negative for central filling defect. It was a limited study. Patient understands that she has to follow-up with cardiology and set up a stress test within a week. At the time of discharge patient was asymptomatic white is stable. Educated the patient in detail about her condition, prognosis and follow-up as needed patient is agreeable and verbalizes understanding. Patient understands she would return back to the hospital if she is in his symptoms. Physical examination: Vital signs reviewed General: nontoxic, no distress, appears at stated age Derm: warm, dry Head: atraumatic, normocephalic, symmetric Eyes: EOMI, no lid lag, anicteric sclera, pupils equal round reactive to light ENT: Nose and ears atraumatic, no thrush, no pharyngeal erythema Neck: No thyromegaly, no cervical lymphadenopathy, trachea midline, supple Mouth: no lip lesion, mucus membranes moist Cardiovascular: S1S2 reg, no murmur, Lungs: clear to auscultation bilateral, no rhonchi, no rales, no wheeze, no accessory muscle use Abdominal: soft, nontender to palpation, no guarding, no appreciable organomeg jose, normal bowel sounds Ext: no gross muscle atrophy, 1+ pitting edema present bilaterally, no contractures I spent 35 minutes coordinating care and discharging this patient. Patient Condition at Discharge: Fair Plan - Discharge Summary Discharge Rx Participant: No New Discharge Prescriptions: Continue Albuterol Nebulized [Ventolin Nebulized] 2.5 mg INHALATION RT-Q6H PRN PRN Reason: Shortness Of Breath Latanoprost/Pf [Latanoprost 0.005% Eye Drop] 1 drop BOTH EYES HS Diltiazem Cd [Cardizem CD] 180 mg PO DAILY #30 cap.er.24h Loratadine [Claritin] 10 mg PO DAILY #30 tab Pantoprazole [Protonix] 40 mg PO AC-BRKFST #30 tablet. Montelukast Sodium [Singulair] 10 mg PO HS #30 tab Clopidogrel [Plavix] 75 mg PO DAILY Docusate [Colace] 100 mg PO DAILY Insulin Regular, Human [humulin R U-500 Kwikpen] See Protocol SQ AC-TID Spironolactone [Aldactone] 25 mg PO DAILY Albuterol Sulfate [Ventolin HFA] 2 puff INHALATION RT-Q6H PRN PRN Reason: Shortness Of Breath Omalizumab [Xolair] 75 mg SQ Q14D Metoprolol Tartrate [Lopressor] 75 mg PO BID Mometasone/Formoterol [Dulera 200 Mcg-5 Mcg Inhaler] 1 puff INHALATION RT-BID Baclofen 10 mg PO TID PRN PRN Reason: Muscle Spasm Discontinued Omalizumab [Xolair] 150 mg SQ Q14D Discharge Medication List Albuterol Nebulized [Ventolin Nebulized] 2.5 mg INHALATION RT-Q6H PRN 03/31/19 [History] Latanoprost/Pf [Latanoprost 0.005% Eye Drop] 1 drop BOTH EYES HS 06/12/19 [History] Diltiazem Cd [Cardizem CD] 180 mg PO DAILY #30 cap.er.24h 06/29/19 [Rx] Loratadine [Claritin] 10 mg PO DAILY #30 tab 06/29/19 [Rx] Montelukast Sodium [Singulair] 10 mg PO HS #30 tab 06/29/19 [Rx] Pantoprazole [Protonix] 40 mg PO AC-BRKFST #30 tablet.dr 06/29/19 [Rx] Clopidogrel [Plavix] 75 mg PO DAILY 07/23/19 [History] Docusate [Colace] 100 mg PO DAILY 10/23/20 [History] Insulin Regular, Human [humulin R U-500 Kwikpen] See Protocol SQ AC-TID 10/23/20 [History] Metoprolol Tartrate [Lopressor] 75 mg PO BID 02/23/21 [History] Albuterol Sulfate [Ventolin HFA] 2 puff INHALATION RT-Q6H PRN 04/24/22 [History] Baclofen 10 mg PO TID PRN 04/24/22 [History] Mometasone/Formoterol [Dulera 200 Mcg-5 Mcg Inhaler] 1 puff INHALATION RT-BID 04/24/22 [History] Omalizumab [Xolair] 75 mg SQ Q14D 04/24/22 [History] Spironolactone [Aldactone] 25 mg PO DAILY 04/24/22 [History] Follow up Appointment(s)/Referral(s): Xavier Tineo MD [Primary Care Provider] - 1-2 days Niels Lundy MD [STAFF PHYSICIAN] - 1 Week Plan of Treatment: Follow-up outpatient with cardiology to set up stress test
[2022-04-25 14:28] VITALS: BP 134/70; PULSE 76; TEMP 97.8
== END 2022-04-25 15:59 | disposition home health service (06) | DRG 178 ==
LOC: EC 13:31 → 3SCARD 22:23
PROVIDERS: ADMIT Internal Medicine; ATTEND Internal Medicine
DX: U07.1 COVID-19 (principal); E87.1 Hypo-osmolality and hyponatremia; I31.3 Pericardial effusion (noninflammatory); Z68.43 Body mass index [BMI] 50.0-59.9, adult; R79.1 Abnormal coagulation profile; E83.42 Hypomagnesemia; I10 Essential (primary) hypertension; J45.909 Unspecified asthma, uncomplicated; E11.319 Type 2 diabetes mellitus with unspecified diabetic retinopathy without macular edema; H40.9 Unspecified glaucoma; E78.5 Hyperlipidemia, unspecified; G47.30 Sleep apnea, unspecified; R60.0 Localized edema; I25.119 Atherosclerotic heart disease of native coronary artery with unspecified angina pectoris; E66.01 Morbid (severe) obesity due to excess calories; Z28.310 Unvaccinated for COVID-19; Z95.1 Presence of aortocoronary bypass graft; Z79.4 Long term (current) use of insulin; Z86.718 Personal history of other venous thrombosis and embolism; Z79.899 Other long term (current) drug therapy; Z79.51 Long term (current) use of inhaled steroids; Z79.02 Long term (current) use of antithrombotics/antiplatelets; Z80.0 Family history of malignant neoplasm of digestive organs; Z83.3 Family history of diabetes mellitus; Z82.49 Family history of ischemic heart disease and other diseases of the circulatory system
CPT/HCPCS: 36415; 71046; 71275; 80053; 83036; 83735; 83880; 84484; 85025; 85379; 85610; 85730; 87635; 93005; 94640; 96361; 96365; 96366; 96372; 96375; 99285

== ENCOUNTER → 2023-11-08 | Outpatient (CLI) | payer OTHER ==
[2023-11-08 09:15] VITALS: BP 147/85; PULSE 95; RESP 19; TEMP 98.7
--- NOTE | 2023-11-08 09:55 | P.HPOB ---
History of Present Illness H&P Date: 11/08/23 Chief Complaint: The patient is here for her routine gynecologic exam and ma mmogram. This is a 57-year-old with an LMP of approximately 2019. The patient is here to establish with this office. It has been about 6 years since her last pelvic exam. The patient is without gynecologic complaints and denies any postmenopausal bleeding. Review of Systems The patient states her weight has been stable. Respiratory: She has had slight wheezing associated with her asthma. She denies cardiac or GI problems. Past Medical History Past Medical History: Asthma, Coronary Artery Disease (CAD), Diabetes Mellitus, Eye Disorder, Hyperlipidemia, Hypertension, Sleep Apnea/CPAP/BIPAP Additional Past Medical History / Comment(s): Type 2 diabetes, retinopathy,GLAUCOMA, chronic pain, BLOOD CLOT IN ARM 30 YEARS AGO R/T TO PICC LINE MISPLACEMENT, uses CPAP. PAST [employer] HISTORY: She has no history of STDs. History of Any Multi-Drug Resistant Organisms: None Reported Past Surgical History: Coronary Bypass/CABG, Heart Catheterization Additional Past Surgical History / Comment(s): elective off-pump four-vessel coronary artery bypass graft surgery with left atrial appendage ligation on 06/22/2019, D&C. Colonoscopy 2018. Past Anesthesia/Blood Transfusion Reactions: No Reported Reaction Additional Past Anesthesia/Blood Transfusion Reaction / Comment(s): no anesthesia Past Psychological History: No Psychological Hx Reported Additional Psychological History / Comment(s): Pt resides with family. She has home oxygen which she wears at 2L/NC ATC. She has a nebulizer. Smoking Status: Never smoker Past Alcohol Use History: None Reported Past Drug Use History: None Reported Additional History: She has been a since 2009 and is currently not sexually active. She does not work outside of the home. - Past Family History Father Family Medical History: Cancer Additional Family Medical History / Comment(s): Colon CA Mother Family Medical History: Asthma, Diabetes Mellitus, Hypertension Additional Family Medical History / Comment(s): Maternal grandmother had breast cancer. Brother(s) Family Medical History: Diabetes Mellitus Medications and Allergies Home Medications Medication Instructions Recorded Confirmed Type Albuterol Nebulized [Ventolin 2.5 mg INHALATION RT-Q6H PRN 03/31/11/08/23 History Nebulized] Latanoprost/Pf [Latanoprost 0.005% 1 drop BOTH EYES HS 06/12/19 11/08/23 History Eye Drop] Diltiazem Cd [Cardizem CD] 180 mg PO DAILY #30 cap.er.24h 06/29/19 11/08/23 Rx Montelukast Sodium [Singulair] 10 mg PO HS #30 tab 06/29/19 11/08/23 Rx Pantoprazole [Protonix] 40 mg PO AC-BRKFST #30 tablet.dr 06/29/19 11/08/23 Rx Clopidogrel [Plavix] 75 mg PO DAILY 07/23/19 11/08/23 History Insulin Regular, Human [humuLIN R See Protocol SQ AC-TID 10/23/20 11/08/23 History U-500 Kwikpen] Metoprolol Tartrate [Lopressor] 75 mg PO BID 02/23/21 11/08/23 History Albuterol Sulfate [Ventolin HFA] 2 puff INHALATION RT-Q6H PRN 04/24/22 11/08/23 History Mometasone/Formoterol [Dulera 200 1 puff INHALATION RT-BID 04/24/22 11/08/23 History Mcg-5 Mcg Inhaler] Omalizumab [Xolair] 75 mg SQ Q14D 04/24/22 11/08/23 History Allergies Allergy/AdvReac Type Severity Reaction Status Date / Time mold AdvReac Itching Verified 11/08/23 08:59 dust AdvReac Mild Itching Uncoded 11/08/23 08:59 Exam Vital Signs Temp Pulse Resp BP Pulse Ox 11/08/23 09:02 98.7 F 95 19 147/85 97 Intake and Output 11/07/23 11/08/23 11/08/23 22:59 06:59 14:59 Other: Weight 163.293 kg Height 5 feet 7 inches, weight greater than 350 pounds (above scale limit, patient states her most recent weight was 360 pounds.) BMI 56.4. This is a well-developed well-nourished obese black female who is alert and oriented times 3 in no acute distress. HEENT: Within normal limits. NECK: Supple without mass or thyromegaly. CHEST AND LUNGS: Clear to auscultation. HEART: Regular rate and rhythm. BREASTS: Are without mass or discharge. AXILLARY EXAM: Negative for adenopathy. BACK: Negative for CVA tenderness. ABDOMEN: Soft, obese, nontender, without palpable masses. PELVIC EXAM: Normal external genitalia with minimal atrophy. Cervix and vagina appear normal and minimal atrophy. There is no unusual discharge. There is no evidence of prolapse. The uterus is midposition, nongravid size and nontender. There are no palpable adnexal masses or tenderness. Bimanual examination is somewhat limited secondary to her size. RECTAL EXAM: Rectovaginal exam is negative for mass or tenderness and is negative for occult blood. EXTREMITIES: Nontender. IMPRESSION: 1. 57-year-old menopausal female with normal gynecologic exam. 2. Elevated blood pressure. 3. Obesity. PLAN: 1. Pap smear cotest was performed. 2. Self breast awareness was discussed with the patient. We have also discussed symptoms associated with inflammatory breast cancer. 3. Screening mammogram will be done today. 4. Osteoporosis prevention was discussed. I have stressed the importance of adequate calcium, vitamin D and regular exercise. Recommended amounts of calcium and vitamin D were also discussed. She states she is planning to have a bone density test done through her PCP in the near future. 5. She states she is planning to get a colonoscopy in the near future and this will be arranged by her PCP. 6. We have discussed her elevated blood pressure. I have recommended that she check her own blood pressure on a regular basis since she does have a blood pressure cuff at home. She is to follow up with her PCP for blood pressure elevations. 7. She was advised to return in one year for her annual well woman exam.
--- NOTE | 2023-11-09 20:08 | MM ---
Reason for Exam: Screening (asymptomatic). Last mammogram was performed 5 year(s) and 4 month(s) ago. Patient History: Menarche at age 11. First Full-Term at age 18. Postmenopausal. Maternal grandmother had breast cancer, age 61. Risk Values: Aline 5 year model risk: 1.4%. NCI Lifetime model risk: 7.1%. Prior Study Comparison: 12/02/2010 Bilateral Screening Mammogram, [facility]. 06/21/2018 Bilateral Screening Mammogram, [facility]. 06/21/2018 Screening Mammogram, [facility]. Tissue Density: There are scattered fibroglandular densities. Findings: Analyzed By CAD. There is no suspicious group of microcalcifications or new suspicious mass in either breast. Overall Assessment: Negative, BI-RAD 1 Management: Screening Mammogram of both breasts in 1 year. . Patient should continue monthly self-breast exams. A clinical breast exam by your physician is recommended on an annual basis. This exam should not preclude additional follow-up of suspicious palpable abnormalities. Note on Aline scores and lifetime risk: 1. A Aline score greater than 3% is considered moderate risk. If this is the case, consider specialist referral to assess eligibility for a risk reducing agent. 2. If overall lifetime risk for the development of breast cancer is 20% or higher, the patient may qualify for future screening with alternating mammogram and breast MRI. Electronically signed and approved by: Alise Aranda M.D. Radiologist
== END ==
LOC: WWCWWP 08:48
PROVIDERS: ATTEND Obstetrics & Gynecology
DX: Z12.31 Encounter for screening mammogram for malignant neoplasm of breast (principal); I10 Essential (primary) hypertension; E66.9 Obesity, unspecified; E11.319 Type 2 diabetes mellitus with unspecified diabetic retinopathy without macular edema; H40.9 Unspecified glaucoma; H42 Glaucoma in diseases classified elsewhere; G89.29 Other chronic pain; G47.30 Sleep apnea, unspecified; E78.5 Hyperlipidemia, unspecified; I25.10 Atherosclerotic heart disease of native coronary artery without angina pectoris; J45.909 Unspecified asthma, uncomplicated; Z95.1 Presence of aortocoronary bypass graft; Z80.3 Family history of malignant neoplasm of breast; Z79.4 Long term (current) use of insulin; Z79.51 Long term (current) use of inhaled steroids; Z79.02 Long term (current) use of antithrombotics/antiplatelets; Z68.43 Body mass index [BMI] 50.0-59.9, adult; Z79.899 Other long term (current) drug therapy; Z91.09 Other allergy status, other than to drugs and biological substances; Z91.048 Other nonmedicinal substance allergy status
CPT/HCPCS: 77067

== ENCOUNTER → 2023-11-18 | Outpatient (CLI) | payer OTHER ==
--- NOTE | 2023-11-18 18:51 | US ---
EXAMINATION TYPE: US abdomen complete DATE OF EXAM: 11/18/2023 COMPARISON: 06/27/2019 CLINICAL INDICATION: Female, 57 years old with history of R74.8 ABNORMAL LEVELS OF OTHER SERUM ENZYME S; Epigastric / Umbilical pain x years. Hx DM TECHNIQUE: Multiple sonographic images of the abdomen are obtained. FINDINGS: EXAM MEASUREMENTS: Liver Length: 18.5 cm Gallbladder Wall: 0.2 cm CBD: 0.2 cm Spleen: 9.2 cm Right Kidney: 13.3 x 4.8 x 6.4 cm Left Kidney: 13.6 x 5.5 x 5.9 cm ACID TESTER NOTES: Pancreas: wnl Liver: Enlarged Gallbladder: ? Polyps noted Evidence for sonographic Alves's sign: No CBD: wnl Spleen: wnl Right Kidney: wnl Left Kidney: wnl Upper IVC: wnl Abd Aorta: wnl IMPRESSION: 1. Adherent gallstones versus polyps. Gallbladder wall thickening is not evident. Follow-up can be pe rformed as clinically indicated. 2. Hepatomegaly
== END | disposition home or self-care (01) ==
LOC: RADUSWWP 07:37
PROVIDERS: ATTEND Internal Medicine
DX: K82.8 Other specified diseases of gallbladder (principal); R16.0 Hepatomegaly, not elsewhere classified; R74.8 Abnormal levels of other serum enzymes
CPT/HCPCS: 76700

== ENCOUNTER → 2024-07-23 | Outpatient (CLI) | payer OTHER ==
--- NOTE | 2024-07-23 14:28 | US ---
EXAMINATION TYPE: US gallbladder DATE OF EXAM: 07/23/2024 COMPARISON: 11/18/23 CLINICAL INDICATION: Female, 58 years old with history of K82.4 CHOLESTEROLOSIS OF GALLBLADDER; jovanny sterolosis of GB TECHNIQUE: Grayscale and color Doppler imaging of the right upper quadrant was performed. FINDINGS: EXAM MEASUREMENTS: Liver Length: 18.6 cm Gallbladder Wall: 0.37 cm CBD: 0.40 cm Right Kidney: 12.5 x 5.1 x 4.9 cm TOOL ADJUSTER NOTES: Slightly limited due to body habitus Pancreas: Only the head was visualized, appears wnl Liver: heterogeneous and difficult to penetrate Gallbladder: There appears to be sludge and a fold in the body Evidence for sonographic Alves's sign: No CBD: wnl Right Kidney: wnl IMPRESSION: Hepatic steatosis. [facility], , 07/23/2024 2:25 PM
== END | disposition home or self-care (01) ==
LOC: RADUSWWP 08:57
PROVIDERS: ATTEND Internal Medicine
DX: K82.4 Cholesterolosis of gallbladder (principal); K76.0 Fatty (change of) liver, not elsewhere classified
CPT/HCPCS: 76705

== ENCOUNTER 2024-12-23 19:11 | Inpatient (IN) | payer OTHER ==
[2024-12-23] MEDS: ACETAMINOPHEN TAB 500 MG TAB PO STA (19:39)
[2024-12-23] MEDS: ASPIRIN 81 MG PO STA (19:39)
[2024-12-23 20:22] LABS: Influenza A Not Detected (Not Detectd); Influenza B Not Detected (Not Detectd); RSV Not Detected (Not Detectd)
[2024-12-23 20:35] LABS: Basophils % (A) 0 %; Eosinophils # (A) 0.2 k/uL (0-0.7); Eosinophils % (A) 2 %; HCT 36.7 % (34.0-46.0); HGB 11.6 gm/dL (11.4-16.0); Lymphocytes # (A) 0.7 k/uL (1.0-4.8); Lymphocytes % (A) 8 %; MCH 25.8 pg (25.0-35.0); MCHC 31.7 g/dL (31.0-37.0); MCV 81.4 fL (80.0-100.0); Mean Platelet Volume 7.5; Monocytes # (A) 0.5 k/uL (0-1.0); Monocytes % (A) 5 %; Neutrophils # (A) 8.2 k/uL (1.3-7.7); Neutrophils % (A) 84 %; Platelet Count 256 k/uL (150-450); RBC 4.51 m/uL (3.80-5.40); RDW 13.2 % (11.5-15.5); WBC 9.8 k/uL (3.8-10.6)
[2024-12-23 20:45] LABS: ALT 13 U/L (4-34); AST 15 U/L (14-36); African American GFR (CKD) >90 (>60 ml/min/1.73 sqM); Albumin 3.4 g/dL (3.5-5.0); Alkaline Phosphatase 123 U/L (38-126); Anion Gap 5 mmol/L; Blood Urea Nitrogen 8 mg/dL (7-17); Calcium 8.5 mg/dL (8.4-10.2); Carbon Dioxide 28 mmol/L (22-30); Chloride 99 mmol/L (98-107); Glucose 221 mg/dL (74-99); Lipase 43 U/L (23-300); Magnesium 1.4 mg/dL (1.6-2.3); Non-African American GFR(CKD) >90 (>60 ml/min/1.73 sqM); Potassium 4.2 mmol/L (3.5-5.1); Sodium 132 mmol/L (137-145); Total Bilirubin 0.9 mg/dL (0.2-1.3); Total Protein 6.6 g/dL (6.3-8.2)
[2024-12-23 20:50] LABS: INR 0.9 (<1.2); Prothrombin Time 10.6 sec (10.0-12.5)
[2024-12-23 20:53] LABS: NT-Pro-B-Type Natriuretic Pept 106 pg/mL
[2024-12-23] MEDS ORDERED: Magnesium Replacement Protocol 1 EACH MISC MISCELLANE PRN (21:47)
--- NOTE | 2024-12-23 21:52 | ED ---
Chest Pain HPI - General Chief Complaint: Chest Pain Stated Complaint: SOB, chest pain Time Seen by Provider: 12/23/24 19:18 Source: patient Mode of arrival: ambulatory Limitations: no limitations - History of Present Illness Initial Comments: 59-year-old female presenting with multiple complaints. Patient reports chest heaviness, shortness of breath, nausea, vomiting, fever, body ache, lower extremity swelling. She states that symptoms mainly started today, she does report that the shortness of breath started yesterday. She states that she always has some swelling in her legs but seems to be worse today. No abdominal pain. No radiation of her chest pain. No cough or congestion. Patient denies any alcohol use or smoking. - Related Data Home Medications Medication Instructions Recorded Confirmed Albuterol Nebulized [Ventolin 2.5 mg INHALATION RT-Q4H PRN 03/31/19 12/24/24 Nebulized] Latanoprost/Pf [Latanoprost 0.005% 1 drop BOTH EYES HS 06/12/19 12/24/24 Eye Drop] Insulin Regular, Human [humuLIN R 50 unit SQ BID 10/23/20 12/24/24 U-500 Kwikpen] Metoprolol Tartrate [Lopressor] 75 mg PO BID 02/23/21 12/24/24 Albuterol Sulfate [Ventolin HFA] 2 puff INHALATION RT-QID PRN 04/24/22 12/24/24 Mometasone/Formoterol [Dulera 200 2 puff INHALATION RT-BID 04/24/22 12/24/24 Mcg-5 Mcg Inhaler] Omalizumab [Xolair] 75 mg SQ Q14D 04/24/22 12/24/24 Atorvastatin [Lipitor] 80 mg PO HS 12/24/24 12/24/24 EPINEPHrine (Auto Inject) [Epipen] 0.3 mg IM ONCE PRN 12/24/24 12/24/24 Ketorolac 0.5% Ophth Soln [Acular 1 drop LEFT EYE BID 12/24/24 12/24/24 0.5%] Omalizumab [Xolair] 300 mg SQ Q14D 12/24/24 12/24/24 Previous Rx's Medication Instructions Recorded Diltiazem Cd [Cardizem CD] 180 mg PO DAILY #30 cap.er.24h 06/29/19 Montelukast Sodium [Singulair] 10 mg PO HS #30 tab 06/29/19 Aspirin 81 mg PO DAILY #30 tab 12/26/24 Sulfamethox-Tmp 800-160Mg [Bactrim 1 tab PO Q12HR #8 tab 12/26/24 DS 800-160 mg] Allergies Allergy/AdvReac Type Severity Reaction Status Date / Time mold AdvReac Itching Verified 12/24/24 07:55 dust AdvReac Mild Itching Uncoded 12/24/24 07:55 Review of Systems ROS Statement: Those systems with pertinent positive or pertinent negative responses have been documented in the HPI. ROS Other: All systems not noted in ROS Statement are negative. Past Medical History Past Medical History: Asthma, Coronary Artery Disease (CAD), Heart Failure, Diabetes Mellitus, Eye Disorder, Hyperlipidemia, Hypertension, Sleep Apnea/CPAP/BIPAP Additional Past Medical History / Comment(s): Type 2 diabetes, retinopathy,GLAUCOMA, chronic pain, BLOOD CLOT IN ARM 30 YEARS AGO R/T TO PICC LINE MISPLACEMENT, uses CPAP. 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 History of Any Multi-Drug Resistant Organisms: None Reported Past Surgical History: Coronary Bypass/CABG, Heart Catheterization Additional Past Surgical History / Comment(s): elective off-pump four-vessel coronary artery bypass graft surgery with left atrial appendage ligation on 06/22/2019, D&C. Colonoscopy 2018. Past Anesthesia/Blood Transfusion Reactions: No Reported Reaction Additional Past Anesthesia/Blood Transfusion Reaction / Comment(s): no anesthesia Past Psychological History: No Psychological Hx Reported Smoking Status: Never smoker Past Alcohol Use History: None Reported Past Drug Use History: None Reported - Past Family History Father Family Medical History: Cancer Additional Family Medical History / Comment(s): Colon CA Mother Family Medical History: Asthma, Diabetes Mellitus, Hypertension Additional Family Medical History / Comment(s): Maternal grandmother had breast cancer. Brother(s) Family Medical History: Diabetes Mellitus General Exam Limitations: no limitations General appearance: alert, in no apparent distress Head exam: Present: atraumatic, normocephalic, normal inspection Eye exam: Present: normal appearance, EOMI Neck exam: Present: normal inspection. Absent: meningismus Respiratory exam: Present: normal lung sounds bilaterally. Absent: respiratory distress, wheezes, rales, rhonchi, stridor Cardiovascular Exam: Present: regular rate, normal rhythm, normal heart sounds. Absent: systolic murmur, diastolic murmur, rubs, gallop, clicks Extremities exam: Present: pedal edema Neurological exam: Present: alert, oriented X3 Psychiatric exam: Present: normal affect, normal mood Skin exam: Present: warm, dry, normal color Course Vital Signs 12/23/24 12/23/24 12/23/24 19:15 21:09 22:34 Temperature 103.1 F H 100.8 F H Pulse Rate 115 H 94 88 Respiratory 18 18 Rate Blood Pressure 133/67 123/70 O2 Sat by Pulse 94 L 97 Oximetry 12/23/24 12/24/24 12/24/24 22:45 03:02 05:59 Temperature 98.3 F Pulse Rate 92 85 86 Respiratory 18 18 Rate Blood Pressure 148/80 138/55 O2 Sat by Pulse 99 95 Oximetry 12/24/24 12/24/24 12/24/24 09:04 09:15 13:09 Temperature Pulse Rate 86 90 88 Respiratory Rate Blood Pressure O2 Sat by Pulse Oximetry 12/24/24 12/24/24 12/24/24 13:18 13:19 16:49 Temperature 98.2 F Pulse Rate 95 84 96 Respiratory 18 Rate Blood Pressure 138/85 O2 Sat by Pulse 97 Oximetry 12/24/24 12/24/24 16:59 17:42 Temperature 98.3 F Pulse Rate 88 94 Respiratory 18 Rate Blood Pressure 133/74 O2 Sat by Pulse 98 Oximetry Chest Pain MDM - MDM Sinus tachycardia ventricular rate 111. AR interval 157. QRS 81. QT 307. QTc 372 Was pt. sent in by a medical professional or institution (, PA, BLOW OFF WORKER, urgent care, hospital, or senior care...) When possible be specific @ -No Did you speak to anyone other than the patient for history (EMS, parent, family, police, friend...)? What history was obtained from this source @ -No Did you review nursing and triage notes (agree or disagree)? Why? @ -I reviewed and agree with nursing and triage notes Were old charts reviewed (outside hosp., previous admission, EMS record, old EKG, old radiological studies, urgent care reports/EKG's, senior care records)? Report findings @ -No old charts were reviewed Differential Diagnosis (chest pain, altered mental status, abdominal pain women, abdominal pain men, vaginal bleeding, weakness, fever, dyspnea, syncope, headache, dizziness, GI bleed, back pain, seizure, CVA, palpatations, mental health, musculoskeletal)? @ - [facility] Differential Fever: Pneumonia, viral URI, endocarditis, myocarditis, pericarditis, otitis, sinusitis, peritonsillar Abscess, retropharyngeal Abscess, epiglottitis, delvis tonitis, appendicitis, Eneida cystitis, diverticulitis, hepatitis, colitis, UTI, PID, TOA, pyelonephritis, prostatitis, epididymitis, meningitis, encephalitis, pulmonary embolism, CVA, thyroid storm, pancreatitis, adrenal crisis, cavernous sinus thrombosis… this is not meant to be an all-inclusive list. EKG interpreted by me (3pts min.). @ -As above X-rays interpreted by me (1pt min.). @ -Chest x-ray shows cardiomegaly and no acute pulmonary process CT interpreted by me (1pt min.). @ -CT shows no aortic dissection. Slightly increased small amount of fluid along the inferior aspect of the median sternotomy, measuring 2.8 x 2.2 x 3.5 cm this may represent postoperative seroma. No central or large pulmonary embolus identified. Evaluation of the distal pulmonary arterial branches is limited by suboptimal contrast bolus timing. No acute pulmonary parenchymal abnormality identified. U/S interpreted by me (1pt. min.). @ -None done What testing was considered but not performed or refused? (CT, X-rays, U/S, labs)? Why? @ -None What meds were considered but not given or refused? Why? @ -None Did you discuss the management of the patient with other professionals (professionals i.e. , PA, BLOW OFF WORKER, lab, RT, psych nurse, delinquency prevention social worker, netting inspector, teacher, artillery officer, case making machine operator)? Give summary @ -Spoke with Dr. Christian who accepts admission Was smoking cessation discussed for >3mins.? @ -No Was critical care preformed (if so, how long)? @ -No Were there social determinants of health that impacted care today? How? (Homelessness, low income, unemployed, alcoholism, drug addiction, transportation, low edu. Level, literacy, decrease access to med. care, halfway, rehab)? @ -No Was there de-escalation of care discussed even if they declined (Discuss DNR or withdrawal of care, Hospice)? DNR status @ -No What co-morbidities impacted this encounter? (DM, HTN, Smoking, COPD, CAD, Cancer, CVA, ARF, Chemo, Hep., AIDS, mental health diagnosis, sleep apnea, morbid obesity)? @ -None Was patient admitted / discharged? Hospital course, mention meds given and route, prescriptions, significant lab abnormalities, going to OR and other pertinent info. @ -59-year-old female presenting with chief complaint of fever along with fatigue body aches and shortness of breath. History and physical examination are conducted. Patient is given antipyretics. Negative troponin. D-dimer is mildly elevated at 0.52, CTA is obtained which is negative for pulmonary embolism. She is negative for influenza, RSV, COVID. Urine is positive for UTI. Patient is treated with 2 g of Rocephin after blood cultures are drawn. Patient will be admitted for continued IV antibiotics. She is agreeable with this plan. I discussed this case with my attending Dr. Tamez Undiagnosed new problem with uncertain prognosis? @ -No Drug Therapy requiring intensive monitoring for toxicity (Heparin, Nitro, Insulin, Cardizem)? @ -No Were any procedures done? @ -No Diagnosis/symptom? @ -UTI Acute, or Chronic, or Acute on Chronic? @ -Acute Uncomplicated (without systemic symptoms) or Complicated (systemic symptoms)? @ -Complicated Side effects of treatment? @ -No Exacerbation, Progression, or Severe Exacerbation? @ -No Poses a threat to life or bodily function? How? (Chest pain, USA, MD, pneumonia, PE, COPD, DKA, ARF, appy, cholecystitis, CVA, Diverticulitis, Homicidal, Suicidal, threat to staff... and all critical care pts) @ -Yes Disposition Clinical Impression: UTI (urinary tract infection), Asthma exacerbation Disposition: ADMITTED IP TO THIS HOSP Condition: Fair Time of Disposition: 03:05
--- NOTE | 2024-12-23 21:53 | XR ---
EXAMINATION TYPE: XR chest 2V DATE OF EXAM: 12/23/2024 7:54 PM COMPARISON: 04/24/2022 CLINICAL INDICATION: Female, 59 years old with history of Chest Pain, fever, chills, short of breath TECHNIQUE: XR chest 2V view(s) obtained. FINDINGS: The heart size is enlarged. The pulmonary vasculature is normal. The lungs are clear. IMPRESSION: 1. Cardiomegaly. 2. No acute pulmonary process. [facility], , 12/23/2024 9:50 PM
[2024-12-23] MEDS: MAGNESIUM SULFATE-D5W PMX 1 GM in DEXTROSE/WATER 1 100ML.BAG IVPB SCH (21:59)
[2024-12-23] MEDS: IPRATROPIUM-ALBUTEROL 3 ML NEB INHALATION STA (22:33)
--- NOTE | 2024-12-24 00:58 | CT ---
EXAM: CT Angiography Chest With Intravenous Contrast CLINICAL HISTORY: ITS.REASON CT Reason: SOB TECHNIQUE: Axial computed tomographic angiography images of the chest with intravenous contrast. CTDI is 38.4 mGy and DLP is 1448 mGy-cm. This CT exam was performed using one or more of the following dose reduction techniques: automated exposure control, adjustment of the mA and/or kV according to patient size, and/or use of iterative reconstruction technique. MIP reconstructed images were created and reviewed. COMPARISON: CT chest on 04/25/2022 FINDINGS: Pulmonary arteries: No central or large pulmonary embolus identified. Evaluation of the distal pulmonary arterial branches is limited by suboptimal contrast bolus timing. Aorta: No acute findings. No aortic dissection. Lungs: Bibasilar atelectasis. No other focal consolidation. Pleural space: Unremarkable. No significant effusion. No pneumothorax. Heart: Median sternotomy and CABG changes. Left atrial appendage clip. No cardiomegaly. No significant pericardial effusion. No evidence of RV dysfunction. Bones/joints: Slightly increased small amount of fluid along the inferior aspect of the median sternotomy, measuring 2.8 x 2.2 x 3.5 cm. This may represent postoperative seroma. Degenerative changes of the spine. No acute fracture. No dislocation. Soft tissues: Unremarkable. Lymph nodes: Unremarkable. No enlarged lymph nodes. Upper abdomen: Elevation of the right hemidiaphragm. IMPRESSION: 1. No aortic dissection. 2. Slightly increased small amount of fluid along the inferior aspect of the median sternotomy, measuring 2.8 x 2.2 x 3.5 cm. This may represent postoperative seroma. 3. No central or large pulmonary embolus identified. Evaluation of the distal pulmonary arterial branches is limited by suboptimal contrast bolus timing. 4. No acute pulmonary parenchymal abnormality identified.
[2024-12-24 01:44] LABS: Appearance,Urine Turbid (Clear); Bacteria,Urine Few /hpf; Bilirubin,Urine Negative (Negative); Blood,Urine Small (Negative); Budding Yeast,Urine Few /hpf; Color,Urine Yellow; Glucose,Urine (UA) 3+ (Negative); Ketones,Urine 1+ (Negative); Leukocyte Esterase,Urine Large (Negative); Mucus,Urine Many /hpf; Nitrite,Urine Positive (Negative); PH, Urine 5.5 (5.0-8.0); Protein,Urine 1+ (Negative); RBC,Urine 39 /hpf (0-5); Specific Gravity,Urine 1.019 (1.001-1.035); Squamous Epithelial Cell,Urine 3 /hpf (0-4); Urobilinogen,Urine <2.0 mg/dL (<2.0); WBC,Urine >182 /hpf (0-5)
[2024-12-24] MEDS: methylPREDNISolone SOD SUCCI 125 MG/2 ML VIAL IV ONE (02:54)
[2024-12-24] MEDS ORDERED: NALOXONE 0.4 MG/ML 1 ML VIAL IV PRN (03:04)
--- NOTE | 2024-12-24 05:02 | P.HPIM ---
History of Present Illness H&P Date: 12/24/24 Chief Complaint: Shortness of breath fever The patient is 59-year-old female morbid obesity who presented with nausea vomiting fever. The patient is also complaining of chest pain and shortness of breath. The patient has a history of frequent UTIs. She has a history of as thma. She states she has had asthma as a child but denies any history of intubation for her asthma. The patient was noted to be febrile with a temperature of 103.1, pulse of 09/26/2014, respiratory of 18, systolic blood pressure 113. The patient had a workup with a UA that showed turbid urine with large leukocytes and nitrite positive. The patient chest x-ray was negative for any infiltrate. The patient was hospitalized for further workup and management. Review of Systems Negative other than as stated above Past Medical History Past Medical History: Asthma, Coronary Artery Disease (CAD), Heart Failure, Diabetes Mellitus, Eye Disorder, Hyperlipidemia, Hypertension, Sleep Apnea/CPAP/BIPAP Additional Past Medical History / Comment(s): Type 2 diabetes, retinopathy,GLAUCOMA, chronic pain, BLOOD CLOT IN ARM 30 YEARS AGO R/T TO PICC LINE MISPLACEMENT, uses CPAP. 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 History of Any Multi-Drug Resistant Organisms: None Reported Past Surgical History: Coronary Bypass/CABG, Heart Catheterization Additional Past Surgical History / Comment(s): elective off-pump four-vessel coronary artery bypass graft surgery with left atrial appendage ligation on 06/22/2019, D&C. Colonoscopy 2018. Past Anesthesia/Blood Transfusion Reactions: No Reported Reaction Additional Past Anesthesia/Blood Transfusion Reaction / Comment(s): no anesthesia Past Psychological History: No Psychological Hx Reported Smoking Status: Never smoker Past Alcohol Use History: None Reported Past Drug Use History: None Reported - Past Family History Father Family Medical History: Cancer Additional Family Medical History / Comment(s): Colon CA Mother Family Medical History: Asthma, Diabetes Mellitus, Hypertension Additional Family Medical History / Comment(s): Maternal grandmother had breast cancer. Brother(s) Family Medical History: Diabetes Mellitus Medications and Allergies Home Medications Medication Instructions Recorded Confirmed Type Albuterol Nebulized [Ventolin 2.5 mg INHALATION RT-Q6H PRN 03/31/19 11/08/23 History Nebulized] Latanoprost/Pf [Latanoprost 0.005% 1 drop BOTH EYES HS 06/12/19 11/08/23 History Eye Drop] Diltiazem Cd [Cardizem CD] 180 mg PO DAILY #30 cap.er.24h 06/29/19 11/08/23 Rx Montelukast Sodium [Singulair] 10 mg PO HS #30 tab 06/29/19 11/08/23 Rx Pantoprazole [Protonix] 40 mg PO AC-BRKFST #30 tablet.dr 06/29/19 11/08/23 Rx Clopidogrel [Plavix] 75 mg PO DAILY 07/23/19 11/08/23 History Insulin Regular, Human [humuLIN R See Protocol SQ AC-TID 10/23/20 11/08/23 History U-500 Kwikpen] Metoprolol Tartrate [Lopressor] 75 mg PO BID 02/23/21 11/08/23 History Albuterol Sulfate [Ventolin HFA] 2 puff INHALATION RT-Q6H PRN 04/24/22 11/08/23 History Mometasone/Formoterol [Dulera 200 1 puff INHALATION RT-BID 04/24/22 11/08/23 History Mcg-5 Mcg Inhaler] Omalizumab [Xolair] 75 mg SQ Q14D 04/24/22 11/08/23 History Allergies Allergy/AdvReac Type Severity Reaction Status Date / Time mold AdvReac Itching Verified 12/23/24 19:16 dust AdvReac Mild Itching Uncoded 11/08/23 08:59 Physical Exam Vitals: Vital Signs Temp Pulse Resp BP Pulse Ox 12/24/24 03:02 98.3 F 85 18 148/80 99 12/23/24 22:45 92 12/23/24 22:34 88 12/23/24 21:09 100.8 F H 94 18 123/70 97 12/23/24 19:15 103.1 F H 115 H 18 133/67 94 L Intake and Output 12/23/24 12/23/24 12/24/24 14:59 22:59 06:59 Other: Weight 163.293 kg - Constitutional General appearance: morbidly obese - Respiratory Respiratory: bilateral: diminished - Cardiovascular Rhythm: regular ankle Peripheral Edema: bilateral: 2+ - Gastrointestinal General gastrointestinal: normal bowel sounds - Integumentary Integumentary: normal - Neurologic Neurologic: CNII-XII intact - Musculoskeletal Musculoskeletal: gait normal - Psychiatric Psychiatric: A&O x's 3, appropriate affect Results CBC & Chem 7: 12/23/24 20:30 12/23/24 20:30 Labs: Abnormal Lab Results - Last 24 Hours (Table) 12/23/24 12/23/24 12/24/24 Range/Units 20:30 20:30 01:00 Neutrophils # 8.2 H (1.3-7.7) k/uL Lymphocytes # 0.7 L (1.0-4.8) k/uL Sodium 132 L (137-145) mmol/L Glucose 221 H (74-99) mg/dL Magnesium 1.4 L (1.6-2.3) mg/dL Albumin 3.4 L (3.5-5.0) g/dL Urine Appearance Turbid H (Clear) Urine Protein 1+ H (Negative) Urine Glucose (UA) 3+ H (Negative) Urine Ketones 1+ H (Negative) Urine Blood Small H (Negative) Urine Nitrite Positive H (Negative) Ur Leukocyte Esterase Large H (Negative) Urine RBC 39 H (0-5) /hpf Urine WBC >182 H (0-5) /hpf Urine WBC Clumps Many H (None) /hpf Urine Bacteria Few H (None) /hpf Urine Mucus Many H (None) /hpf Urine Yeast (Budding) Few H (None) /hpf Chest x-ray: report reviewed CT scan - abdomen: report reviewed Assessment and Plan (1) Asthma exacerbation Narrative/Plan: Will give nebs as needed Current Visit: No Status: Acute Code(s): J45.901 - UNSPECIFIED ASTHMA WITH (ACUTE) EXACERBATION SNOMED Code(s): 663239069 (2) UTI (urinary tract infection) Narrative/Plan: History of urinary tract infection so we will treat broadly with cefepime Current Visit: Yes Status: Acute Code(s): N39.0 - URINARY TRACT INFECTION, SITE NOT SPECIFIED SNOMED Code(s): 59867046 (3) Bilateral leg edema Narrative/Plan: Will monitor closely with fluids Current Visit: No Status: Acute Code(s): R60.0 - LOCALIZED EDEMA SNOMED Code(s): 122299865 (4) Sepsis Narrative/Plan: Secondary to urinary tract infection, currently IV antibiotics and await urine and blood cultures Current Visit: Yes Status: Acute Code(s): A41.9 - SEPSIS, UNSPECIFIED ORGANISM SNOMED Code(s): 69703699 Plan: Sepsis protocol, IV cefepime, await blood and urine cultures, sliding scale coverage, nebs,
[2024-12-24 07:29] LABS: Glucose,Whole Blood 396 mg/dL (70-110)
[2024-12-24] MEDS ORDERED: DEXTROSE 50% SYRINGE 50 ML IVP PRN ×2 (07:40)
[2024-12-24] MEDS: CEFEPIME 2 GM in SODIUM CHLORIDE 0.9% 100 ML IVPB SCH (08:42)
[2024-12-24] MEDS: INSULIN LISPRO (HumaLOG) 100 UNIT/ML 10 mL VL SQ SCH ×3 (08:43→17:36)
[2024-12-24] MEDS: ACETAMINOPHEN TAB 325 MG TAB PO PRN (08:47)
[2024-12-24] MEDS ORDERED: CEFEPIME 2 GM in SODIUM CHLORIDE 0.9% 50 ML IVPB SCH (09:00)
[2024-12-24] MEDS: IPRATROPIUM-ALBUTEROL 3 ML NEB INHALATION PRN (09:02)
[2024-12-24] MEDS: ENOXAPARIN 60 MG/0.6 ML SYRINGE SQ SCH (09:27)
[2024-12-24] MEDS ORDERED: ALBUTEROL HFA INHALER INHALATION PRN (09:44)
[2024-12-24 12:18] LABS: Glucose,Whole Blood 417 mg/dL (70-110)
[2024-12-24] MEDS: INSULIN GLARGINE (LANTUS) 100 UNIT/ML SYR SQ SCH ×2 (12:26→21:15)
[2024-12-24 17:04] LABS: Glucose,Whole Blood 449 mg/dL (70-110)
[2024-12-24 19:17] LABS: Glucose,Whole Blood 437 mg/dL (70-110)
[2024-12-24] MEDS: SYMBICORT 160-4.5 MCG INHALER INHALATION SCH (20:29)
[2024-12-24] MEDS: LATANOPROST 0.005% OPHTH DROPS 2.5 ML BTL BOTH EYES SCH (20:43)
[2024-12-24] MEDS: MONTELUKAST 10 MG TAB PO SCH (20:44)
[2024-12-24] MEDS: METOPROLOL TARTRATE 25 MG TAB PO SCH (20:44)
[2024-12-24] MEDS: KETOROLAC 0.5% OPHTH DROPS 5 ML BTL LEFT EYE SCH (20:44)
[2024-12-24] MEDS: ATORVASTATIN 80 MG TAB PO SCH (20:44)
[2024-12-25 06:34] LABS: Glucose,Whole Blood 324 mg/dL (70-110)
[2024-12-25] MEDS: DILTIAZEM CD 180 MG CAP.ER.24H PO SCH (08:22)
--- NOTE | 2024-12-25 08:33 | P.PN ---
Progress Note - Text Progress Note Date: 12/25/24 Patient initially admitted to observation unit secondary to asthma exacerbation, weakness, and UTI, orders were placed for inpatient admission at this time secondary to blood culture resulting positive for E. coli bacteremia.
[2024-12-25 08:41] LABS: ALT 11 U/L (8-44); AST 12 U/L (13-35); Albumin 3.6 g/dL (3.8-4.9); Albumin/Globulin Ratio 1.29 Ratio (1.60-3.17); Alkaline Phosphatase 128 U/L (41-126); Blood Urea Nitrogen 12.3 mg/dL (9.0-27.0); Calcium 8.8 mg/dL (8.7-10.3); Chloride 99 mmol/L (96-109); Globulin 2.8 g/dL (1.6-3.3); Glucose 316 mg/dL (70-110); Magnesium 1.9 mg/dL (1.5-2.4); Potassium 4.5 mmol/L (3.5-5.5); Sodium 134 mmol/L (135-145); Total Bilirubin 0.3 mg/dL (0.3-1.2); Total Protein 6.4 g/dL (6.2-8.2)
[2024-12-25 08:47] LABS: Basophils # (A) 0.03 X 10*3/uL (0.00-0.10); Basophils % (A) 0.3 %; Eosinophils # (A) 0.01 X 10*3/uL (0.04-0.35); Eosinophils % (A) 0.1 %; HCT 37.2 % (37.2-46.3); HGB 11.6 g/dL (12.0-15.0); Lymphocytes # (A) 1.42 X 10*3/uL (0.90-5.00); Lymphocytes % (A) 15.7 %; MCH 25.7 pg (27.0-32.0); MCHC 31.2 g/dL (32.0-37.0); MCV 82.3 FL (80.0-97.0); Mean Platelet Volume 10.5 FL (9.5-12.2); Monocytes # (A) 0.87 X 10*3/uL (0.20-1.00); Monocytes % (A) 9.6 %; NRBC Per 100 WBC 0 X 10*3/uL (0.00-0.01); Neutrophils # (A) 6.67 X 10*3/uL (1.80-7.70); Neutrophils % (A) 73.7 %; Platelet Count 320 X 10*3/uL (140-440); RBC 4.52 X 10*6/uL (4.10-5.20); RDW 12.8 % (11.5-14.5); WBC 9.05 X 10*3/uL (4.50-10.00)
[2024-12-25] MEDS ORDERED: DOCUSATE 100 MG CAP PO PRN (10:56)
--- NOTE | 2024-12-25 12:03 | P.PN ---
Subjective Progress Note Date: 12/25/24 Hospital Course: A 59-year-old female with medical history of CAD s/p CABG, HTN, hyperlipidemia, insulin-dependent diabetes who presented to the ER with fever, nausea, vomiting, shortness of breath, vital signs were significant for fever of 103.1, tachycardia, systolic blood pressure 113, UA came back positive for UTI, chest x-ray was negative, admitted for further workup and management of acute asthma exacerbation, sepsis secondary to UTI. Her respiratory status improved quickly, she remained afebrile since 12/23/2024 9 PM, blood work showed no leukocytosis. Blood cultures came back positive for E. coli, patient is on ceftriaxone, awaiting final cultures Subjective: Feeling better, no active complaints Pertinent positives and negatives as discussed above, a complete review of systems was performed and all other systems are negative. Vitals Signs Reviewed. General: [nontoxic], [no distress], [appears at stated age], obese Derm: [warm], [dry] Head: [atraumatic], [normocephalic], [symmetric] Eyes: [EOMI], [no lid lag], [anicteric sclera] Mouth: [no lip lesion], [mucus membranes moist] Cardiovascular: [S1S2 reg], [no murmur] Lungs: [CTA bilateral], [no rhonchi, no rales] , [no accessory muscle use] Abdominal: [soft], [ nontender to palpation], [no guarding], [no appreciable organomegaly] Ext: [no gross muscle atrophy], [no edema], [no contractures] Neuro: [ CN II-XI grossly intact], [no focal neuro deficits] Psych: [Alert], [oriented], [appropriate affect] Data Reviewed Today: Pertinent Labs: Hemoglobin 11.6, normal WBC count and platelet count, sodium 134, pseudohyponatremia in the settings of hyperglycemia, normal potassium, bicarb, creatinine Assessment and Plan: Acute asthma exacerbation, resolved -Continue home Symbicort 160/4.52 puffs twice daily, DuoNebs every 2 hours as needed, Singulair 10 mg p.o. nightly Sepsis with E. coli bacteremia secondary to UTI -Continue ceftriaxone 2 g q. 24-hour antibiotics SOT 12/24 -Follow-up final blood and urine cultures Type II DM on insulin -Adjusted basal bolus regimen as following: Lantus 32 units twice daily, meal time Humalog 15 units, moderate intensity sliding scale insulin CAD s/p CABG Hypertension Hyperlipidemia -Continue home Lipitor 80 mg nightly, diltiazem CD1 80 mg daily, Lopressor 75 mg p.o. twice daily -Patient was started on aspirin 81 mg daily, was not on it at home for unknown reason Constipation -Docusate 100 daily VU on CPAP: continue CPAP morbid obesity BMI 56.4: structured weight loss program DVT ppx: Lovenox Code status: Full code Anticipated discharge place: Home Anticipated discharge time: 24-48 pending final cultures Objective - Vital Signs Vital signs: Vital Signs Temp 97.5 F L 12/25/24 07:00 Pulse 76 12/25/24 09:55 Resp 18 12/25/24 07:00 BP 110/73 12/25/24 07:00 Pulse Ox 94 L 12/25/24 07:00 FiO2 Intake & Output 12/24/24 12/25/24 12/25/24 18:59 06:59 18:59 Weight 163.293 kg Other: # Voids 3 - Labs CBC & Chem 7: 12/25/24 05:17 12/25/24 05:17 Labs: Abnormal Lab Results - Last 24 Hours (Table) 12/24/24 12/24/24 12/24/24 Range/Units 12:16 17:03 19:15 Hgb (12.0-15.0) g/dL MCH (27.0-32.0) pg MCHC (32.0-37.0) g/dL Immature Gran # (0.00-0.04) X 10*3/uL Eosinophils # (0.04-0.35) X 10*3/uL Sodium (135-145) mmol/L BUN/Creatinine Ratio (12.00-20.00) Ratio Glucose (70-110) mg/dL POC Glucose (mg/dL) 417 H 449 H 437 H (70-110) mg/dL Hemoglobin A1c (<=6.0) % AST (13-35) U/L Alkaline Phosphatase (41-126) U/L Albumin (3.8-4.9) g/dL Albumin/Globulin Ratio (1.60-3.17) Ratio 12/25/24 12/25/24 12/25/24 Range/Units 05:17 05:17 05:17 Hgb 11.6 L (12.0-15.0) g/dL MCH 25.7 L (27.0-32.0) pg MCHC 31.2 L (32.0-37.0) g/dL Immature Gran # 0.05 H (0.00-0.04) X 10*3/uL Eosinophils # 0.01 L (0.04-0.35) X 10*3/uL Sodium 134 L (135-145) mmol/L BUN/Creatinine Ratio 20.50 H (12.00-20.00) Ratio Glucose 316 H (70-110) mg/dL POC Glucose (mg/dL) (70-110) mg/dL Hemoglobin A1c 10.2 H (<=6.0) % AST 12 L (13-35) U/L Alkaline Phosphatase 128 H (41-126) U/L Albumin 3.6 L (3.8-4.9) g/dL Albumin/Globulin Ratio 1.29 L (1.60-3.17) Ratio 12/25/24 Range/Units 06:32 Hgb (12.0-15.0) g/dL MCH (27.0-32.0) pg MCHC (32.0-37.0) g/dL Immature Gran # (0.00-0.04) X 10*3/uL Eosinophils # (0.04-0.35) X 10*3/uL Sodium (135-145) mmol/L BUN/Creatinine Ratio (12.00-20.00) Ratio Glucose (70-110) mg/dL POC Glucose (mg/dL) 324 H (70-110) mg/dL Hemoglobin A1c (<=6.0) % AST (13-35) U/L Alkaline Phosphatase (41-126) U/L Albumin (3.8-4.9) g/dL Albumin/Globulin Ratio (1.60-3.17) Ratio Microbiology - Last 24 Hours (Table) 12/24/24 01:00 Urine Culture - Preliminary Urine,Voided Gram Neg Bacilli 12/24/24 03:02 Blood Culture Gram Stain - Preliminary Blood Blood Culture - Preliminary Molecular ID
[2024-12-25 12:14] LABS: Glucose,Whole Blood 106 mg/dL (70-110)
[2024-12-25] MEDS: INSULIN LISPRO (HumaLOG) 100 UNIT/ML 10 mL VL SQ SCH (13:01)
[2024-12-25 17:16] LABS: Glucose,Whole Blood 229 mg/dL (70-110)
[2024-12-25 19:41] LABS: Glucose,Whole Blood 124 mg/dL (70-110)
[2024-12-25] MEDS: INSULIN GLARGINE (LANTUS) 100 UNIT/ML SYR SQ SCH (21:51)
[2024-12-26 05:48] LABS: Glucose,Whole Blood 129 mg/dL (70-110)
[2024-12-26 08:14] VITALS: RESP 16
[2024-12-26] MEDS: IBUPROFEN 400 MG TAB PO PRN (10:15)
[2024-12-26] MEDS: ASPIRIN 81 MG PO SCH (10:16)
[2024-12-26 12:14] LABS: Glucose,Whole Blood 195 mg/dL (70-110)
--- NOTE | 2024-12-26 12:16 | P.DS ---
Providers Date of admission: 12/24/24 02:37 Attending physician: Terri Christian MD Primary care physician: [facility] Course: Discharge Diagnosis: Sepsis with E. coli bacteremia secondary to UTI Acute asthma exacerbation, resolved Type II DM on insulin CAD status post CABG Hypertension Hyperlipidemia Constipation VU on CPAP Hospital Course: A 59-year-old female with medical history of CAD s/p CABG, HTN, hyperlipidemia, insulin-dependent diabetes who presented to the ER with fever, nausea, vomiting, shortness of breath, vital signs were significant for fever of 103.1, tachycardia, systolic blood pressure 113, UA came back positive for UTI, chest x-ray was negative, admitted for further workup and management of acute asthma exacerbation, sepsis secondary to UTI. Her respiratory status improved quickly, she remained afebrile since 12/23/2024 9 PM, blood work showed no leukocytosis. Blood cultures came back positive for E. coli, as well as urinary cultures, patient is on ceftriaxone, patient is discharged in stable condition on 12/26 to complete course of antibiotics with Bactrim for total 7 days, recommended to follow-up with PCP and possible referral for [employer] and urology for recurrent UTIs. Of note, she was started on aspirin due to history of CAD status post CABG She did complain of some mild left-sided abdominal discomfort on the day of discharge, abdomen was soft, nondistended, normal active bowel sounds, she had bowel movement earlier but is now constipated compared to her daily BMs, she does not have any nausea, vomiting, tolerates oral diet well, can follow-up with her primary care physician should this cramping persist Patient seen and examined at bedside.[] General: [nontoxic], [no distress], [appears at stated age], obese Derm: [warm], [dry] Head: [atraumatic], [normocephalic], [symmetric] Eyes: [EOMI], [no lid lag], [anicteric sclera] Mouth: [no lip lesion], [mucus membranes moist] Cardiovascular: [S1S2 reg], [no murmur] Lungs: [CTA bilateral], [no rhonchi, no rales] , [no accessory muscle use] Abdominal: [soft], [ nontender to palpation], [no guarding], [no appreciable organomegaly] Ext: [no gross muscle atrophy], [no edema], [no contractures] Neuro: [ CN II-XI grossly intact], [no focal neuro deficits] Psych: [Alert], [oriented], [appropriate affect] A total of 40 minutes of time were spent preparing this complex discharge summary. Patient Condition at Discharge: Fair Plan - Discharge Summary Discharge Rx Participant: No New Discharge Prescriptions: New Sulfamethox-Tmp 800-160Mg [Bactrim DS 800-160 mg] 1 tab PO Q12HR #8 tab Aspirin 81 mg PO DAILY #30 tab Continue Albuterol Nebulized [Ventolin Nebulized] 2.5 mg INHALATION RT-Q4H PRN PRN Reason: Shortness Of Breath Latanoprost/Pf [Latanoprost 0.005% Eye Drop] 1 drop BOTH EYES HS Diltiazem Cd [Cardizem CD] 180 mg PO DAILY #30 cap.er.24h Montelukast Sodium [Singulair] 10 mg PO HS #30 tab Insulin Regular, Human [humuLIN R U-500 Kwikpen] 50 unit SQ BID Albuterol Sulfate [Ventolin HFA] 2 puff INHALATION RT-QID PRN PRN Reason: Shortness Of Breath Omalizumab [Xolair] 75 mg SQ Q14D Omalizumab [Xolair] 300 mg SQ Q14D Metoprolol Tartrate [Lopressor] 75 mg PO BID Mometasone/Formoterol [Dulera 200 Mcg-5 Mcg Inhaler] 2 puff INHALATION RT-BID Atorvastatin [Lipitor] 80 mg PO HS EPINEPHrine (Auto Inject) [Epipen] 0.3 mg IM ONCE PRN PRN Reason: Anaphylaxis Ketorolac 0.5% Ophth Soln [Acular 0.5%] 1 drop LEFT EYE BID Discharge Medication List Albuterol Nebulized [Ventolin Nebulized] 2.5 mg INHALATION RT-Q4H PRN 03/31/19 [History] Latanoprost/Pf [Latanoprost 0.005% Eye Drop] 1 drop BOTH EYES HS 06/12/19 [Hist ory] Diltiazem Cd [Cardizem CD] 180 mg PO DAILY #30 cap.er.24h 06/29/19 [Rx] Montelukast Sodium [Singulair] 10 mg PO HS #30 tab 06/29/19 [Rx] Insulin Regular, Human [humuLIN R U-500 Kwikpen] 50 unit SQ BID 10/23/20 [History] Metoprolol Tartrate [Lopressor] 75 mg PO BID 02/23/21 [History] Albuterol Sulfate [Ventolin HFA] 2 puff INHALATION RT-QID PRN 04/24/22 [History] Mometasone/Formoterol [Dulera 200 Mcg-5 Mcg Inhaler] 2 puff INHALATION RT-BID 04/24/22 [History] Omalizumab [Xolair] 75 mg SQ Q14D 04/24/22 [History] Atorvastatin [Lipitor] 80 mg PO HS 12/24/24 [History] EPINEPHrine (Auto Inject) [Epipen] 0.3 mg IM ONCE PRN 12/24/24 [History] Ketorolac 0.5% Ophth Soln [Acular 0.5%] 1 drop LEFT EYE BID 12/24/24 [History] Omalizumab [Xolair] 300 mg SQ Q14D 12/24/24 [History] Aspirin 81 mg PO DAILY #30 tab 12/26/24 [Rx] Sulfamethox-Tmp 800-160Mg [Bactrim DS 800-160 mg] 1 tab PO Q12HR #8 tab 12/26/24 [Rx] Follow up Appointment(s)/Referral(s): Xavier Tineo DO [Primary Care Provider] - 1-2 days Patient Instructions/Handouts: Urinary Tract Infection in Women (DC) Activity/Diet/Wound Care/Special Instructions: Please, follow-up with your primary care physician. As we discussed, consider seeing your [facility] [employer] to discuss recurrent UTIs, also consider referral to urology specialist. Please, finish your antibiotics as prescribed, first dose 12/27. Stay hydrated
[2024-12-26 15:58] VITALS: BP 134/74; PULSE 80; TEMP 97.6
[2024-12-26 16:07] VITALS: BMI 56.3
[2024-12-27] MEDS ORDERED: cefTRIAXone 2 GM in DEXTROSE 5% IN WATER 50 ML IVPB SCH (09:00)
== END 2024-12-26 17:26 | disposition home or self-care (01) | DRG 720 ==
LOC: EC 19:11 → 6NMEDSUR 12-24 02:36 → OBSVTOIN 12-24 02:37 → 6NMEDSUR 12-24 17:03
PROVIDERS: ADMIT Internal Medicine; ATTEND Internal Medicine
DX: A41.51 Sepsis due to Escherichia coli [E. coli] (principal); Z68.43 Body mass index [BMI] 50.0-59.9, adult; J45.901 Unspecified asthma with (acute) exacerbation; E66.01 Morbid (severe) obesity due to excess calories; E11.65 Type 2 diabetes mellitus with hyperglycemia; I10 Essential (primary) hypertension; B96.20 Unspecified Escherichia coli [E. coli] as the cause of diseases classified elsewhere; N39.0 Urinary tract infection, site not specified; I25.10 Atherosclerotic heart disease of native coronary artery without angina pectoris; E78.5 Hyperlipidemia, unspecified; K59.00 Constipation, unspecified; G47.33 Obstructive sleep apnea (adult) (pediatric); Z79.4 Long term (current) use of insulin; Z95.1 Presence of aortocoronary bypass graft; Z86.718 Personal history of other venous thrombosis and embolism; Z79.02 Long term (current) use of antithrombotics/antiplatelets; Z79.899 Other long term (current) drug therapy; Z79.51 Long term (current) use of inhaled steroids; Z87.440 Personal history of urinary (tract) infections; Z79.82 Long term (current) use of aspirin
CPT/HCPCS: 36415; 71046; 71275; 80053; 81001; 83036; 83690; 83735; 83880; 84484; 85025; 85379; 85610; 85730; 87040; 87077; 87086; 87186; 87636; 93005; 94640; 94660; 94760; 96365; 96366; 96367; 96372; 96375; 99285